=== PATIENT | male | born 1965 | race Caucasian/White ===

== ENCOUNTER 2025-06-09 18:19 | Outpatient (BNV) | payer OTHER, SELFPAY | END 2025-06-14 16:28 | PROVIDERS: Admitting Provider Psychiatry & Neurology Psychiatry; Visit Provider Internal Medicine Cardiovascular Disease | DX: R07.9 Chest pain, unspecified (principal) | CPT/HCPCS: 93010 ==

== ENCOUNTER 2025-06-09 18:19 | Outpatient (BNV) | payer OTHER, SELFPAY | END 2025-06-27 06:15 | PROVIDERS: Admitting Provider Psychiatry & Neurology Psychiatry; Visit Provider Radiology Diagnostic Radiology | DX: R51.9 Headache, unspecified (principal); S09.90XA Unspecified injury of head, initial encounter; W19.XXXA Unspecified fall, initial encounter | CPT/HCPCS: 70450 ==

== ENCOUNTER 2025-06-09 18:19 | Outpatient (BNV) | payer OTHER, SELFPAY | END 2025-07-14 05:42 | PROVIDERS: Admitting Provider Psychiatry & Neurology Psychiatry; Visit Provider Radiology Diagnostic Radiology | DX: M47.812 Spondylosis without myelopathy or radiculopathy, cervical region (principal); I65.29 Occlusion and stenosis of unspecified carotid artery; Z04.3 Encounter for examination and observation following other accident | CPT/HCPCS: 70450; 72125 ==

== ENCOUNTER 2025-06-09 18:19 | Outpatient (BNV) | payer OTHER, SELFPAY | END 2025-06-14 16:43 | PROVIDERS: Admitting Provider Psychiatry & Neurology Psychiatry; Visit Provider Radiology Diagnostic Radiology | DX: R07.9 Chest pain, unspecified (principal) | CPT/HCPCS: 71046 ==

== ENCOUNTER 2025-06-09 18:19 | Outpatient (BNV) | payer OTHER, SELFPAY | END 2025-07-06 16:49 | PROVIDERS: Admitting Provider Psychiatry & Neurology Psychiatry; Visit Provider Radiology Diagnostic Radiology | DX: Z04.3 Encounter for examination and observation following other accident (principal) | CPT/HCPCS: 73502; 93971 ==

== ENCOUNTER 2025-06-09 18:19 | Outpatient (BNV) | payer OTHER, SELFPAY | END 2025-06-28 19:50 | PROVIDERS: Admitting Provider Psychiatry & Neurology Psychiatry; Visit Provider Radiology Diagnostic Radiology | DX: M25.561 Pain in right knee (principal); R22.41 Localized swelling, mass and lump, right lower limb | CPT/HCPCS: 73560 ==

== ENCOUNTER 2025-06-09 18:19 | Inpatient (IN) | payer OTHER, SELFPAY ==
--- NOTE | ~2025-06-09 | CT_ITS ---
EXAMINATION: CT HEAD WITHOUT CONTRAST CLINICAL INFORMATION: Fall, head trauma COMPARISON: None available. TECHNIQUE: Contiguous axial imaging was performed from the skull base to vertex without intravenous administration of contrast. This CT examination was performed using dose optimization techniques as appropriate, variously including the following: *Automated exposure control *Adjustment of mA and/or kV according to patient size (this includes techniques or standardized protocols for targeted exams where dose is matched to indication/reason for exam; i.e. extremities or head) *Use of iterative reconstruction technique DLP: 797 mGy-cm FINDINGS: No acute fracture in the bony calvarium or the skull base. No gross hematoma in the intraconal or extraconal compartments of the orbits. No acute intracranial hemorrhage, mass effect, midline shift, hydrocephalus or herniation. Flowers-white matter differentiation is normal. Posterior cranial fossa contents demonstrated no acute hemorrhage or mass effect. Normal position of the cerebellar tonsils. Sellar/suprasellar region demonstrated no gross masses. Calcified plaques in the V4 segments of the vertebral arteries and cavernous supracavernous segments both ICAs as well as the M1 segment. No air-fluid levels in the paranasal sinuses. Tympanic cavities and mastoid cells are aerated. CT/CT head/brain wo IV con IMPRESSION: No acute fracture, bony calvarium. No acute intracranial hemorrhage. Atherosclerosis disease, intracranial. Electronically signed by: Pino Ponce MD 06/27/2025 10:44 AM MIKE
--- NOTE | ~2025-06-09 | CT_ITS ---
EXAMINATION: CT HEAD WITHOUT CONTRAST CLINICAL INFORMATION: fall COMPARISON: June 27, 2025 TECHNIQUE: Contiguous axial imaging was performed from the skull base to vertex without intravenous administration of contrast. This CT examination was performed using dose optimization techniques as appropriate, variously including the following: *Automated exposure control *Adjustment of mA and/or kV according to patient size (this includes techniques or standardized protocols for targeted exams where dose is matched to indication/reason for exam; i.e. extremities or head) *Use of iterative reconstruction technique DLP: 708.72 mGy-cm FINDINGS: Motion artifact. No gross acute fracture in the bony calvarium. No gross acute intracranial hemorrhage, mass effect, midline shift, hydrocephalus or herniation. Flowers-white matter differentiation is normal. Calcified plaques in the cavernous supracavernous segments of the ICA and right ICA terminus. Posterior cranial fossa contents demonstrated no gross acute hemorrhage or mass effect. Normal position of the cerebellar tonsils. Sellar/suprasellar region demonstrated no gross masses. No gross air-fluid levels in the paranasal sinuses. Tympanic cavities and mastoid cells are aerated. CT/CT head/brain wo IV con IMPRESSION: Limited by patient's motion artifact. No acute fracture, bony calvarium. No acute intracranial hemorrhage. Atherosclerosis disease, ICAs. Electronically signed by: Pino Ponce MD 07/14/2025 07:15 AM EST
--- NOTE | ~2025-06-09 | CT_ITS ---
EXAMINATION: CT CERVICAL SPINE WITHOUT IV CONTRAST HISTORY: fall. TECHNIQUE: Helical CT of the cervical spine was performed per standard departmental protocol. Coronal and sagittal reformatted images were also evaluated. One or more of the following techniques was used for dose reduction: Automated exposure control, adjustment of the mA and/or kV according to patient size, use of iterative reconstruction technique. DLP: 1064 mGy-cm COMPARISON: There are no prior studies available for comparison. FINDINGS: CERVICAL SPINE: The examination is limited by patient motion. There is straightening of the normal cervical lordosis. The vertebral bodies maintain normal height without evidence of fracture or subluxation. There is moderate degenerative disc disease at the C4-5 level, with disc space narrowing and osteophyte formation. Milder changes are noted at the remaining levels. Evaluation for disc pathology is limited by lack of intrathecal contrast material and patient motion. BRAIN: The visualized portion of the brain is unremarkable. SINUSES: The visualized paranasal sinuses, mastoid air cells and middle ear cavities are unremarkable. LUNG APICES: The visualized lung apices are clear. SOFT TISSUES: There is calcification of the internal carotid arteries. CT/CT cervical spine wo IV con IMPRESSION: Limited examination due to patient motion. Straightening of the normal cervical lordosis. Degenerative changes as described. No definite fracture or subluxation. Electronically signed by: Michael Thomas MD 07/14/2025 07:18 AM EST
--- NOTE | ~2025-06-09 | XR_ITS ---
EXAMINATION: XR CHEST CLINICAL INFORMATION: Chest pain COMPARISON: None available. TECHNIQUE: 2 views of the chest were obtained. FINDINGS: The lungs are clear. No consolidation or evidence of pulmonary edema. No pleural effusion or pneumothorax. Mediastinal clips. The cardiac silhouette does not appear enlarged. Hilar and mediastinal contours are unremarkable. Median sternotomy wires. Mild degenerative changes of the spine. XR/XR chest 2V IMPRESSION: No evidence for acute disease in the chest. Electronically signed by: Concepcion Delarosa MD 06/14/2025 04:54 PM EDT
--- NOTE | ~2025-06-09 | XR_ITS ---
CLINICAL HISTORY: Fall 2 view right knee Comparison: None provided Findings: Mild narrowing of the medial knee compartment with marginal heterotopic bone formation. Mild osteopenia. No significant loss of joint space, osteophytes, or erosions. No joint effusion. No radiopaque foreign body. Mild arterial calcifications present. IMPRESSION: 1. Mild medial compartment osteoarthritis of the right knee. 2. Mild osteopenia. 3. No acute osseous injury. This document has been electronically signed by: Johnie Lizama MD on 06/28/2025 20:28:13
--- NOTE | ~2025-06-09 | XR_ITS ---
EXAMINATION: XR HIP, RIGHT CLINICAL INFORMATION: fall COMPARISON: None available. TECHNIQUE: Two views of the right hip. FINDINGS: The right hip joint spaces maintain normal. There is no visible acute fracture, dislocation or subluxation. No bony erosive changes. There is a radiopaque BB-like density overlying the right hip joint. XR/XR hip RT min 2V IMPRESSION: Unremarkable right hip exam. Small radiopaque BB-like metallic density overlying the right hip joint. Electronically signed by: Evan Poon MD 07/07/2025 07:14 AM MIKE MCNEILL
--- NOTE | ~2025-06-09 | US_ITS ---
CLINICAL HISTORY: Right leg pain Venous duplex ultrasound right lower extremity Comparison: None provided Findings: The visualized deep veins are fully compressible with normal Doppler color flow and spectral tracings. No popliteal cyst. There are 2 predominantly fatty replaced lymph nodes within the right groin, most likely inflammatory. IMPRESSION: 1. Negative for right lower extremity deep vein thrombosis. This document has been electronically signed by: Tiff Kiran MD on 07/06/2025 17:26:13
[2025-06-09 18:46] VITALS: BP 116/67; PULSE 72; RESP 17; TEMP 36.4; O2SAT 97
[2025-06-09 18:47] VITALS: BMI 27.6
--- NOTE | 2025-06-09 18:47 | PC.NURSE ---
Patient was admitted at 18:28 from [facility]. Patient was oriented to the unit, skin check competed and unremarkable other than a scar to pt's right foot, which he reports is from surgery earlier this year d/t an ankle fx, from a fall. Pt given a walker (as he reports using one at home) and sr. operations manager provider notified to place pt on 5 minute checks. Vitals completed (97.6, 97%, 72, 116/67). Pt denies SI/HI/AVH, reports feeling safe on the unit.
[2025-06-09 19:25] VITALS: BP 141/63; PULSE 80; RESP 16; TEMP 36.2; O2SAT 100
--- OUTSIDE RECORDS SUMMARY | 2025-06-09 19:52 | XMS_ITS | Encounter Summary ---
Author Organization [facility] Address [address] [place] [address] Care Team Providers Care Electrical Engineering Director Name Role Phone Gabriel Sykes MD Primary Care Provider Susana Nicholas MD Primary Care Provider Encounter Details Date Type Department Care Team (Late st Contact Info) Description 07/24/[address] Orders [address] [facility] [address] [place] [phone] Dorys Azevedo MD [address] [place] [address] Medications Social History Tobacco Use Types Packs/Day Years Used Date Smoking Tobacco: Every Day Cigarettes 1 20 Comments:trying to quit Alcohol Use Standard Drinks/Week Comments No 0 (1 standard drink = 0.6 oz pur e alcohol) sober since 2001 Sex and Gender Information Value Date Recorded Sex Assigned at Not on file Legal Sex Male 11:13 PM EDT Gender Identity Not on file Sexual Orientation Not on file Occupation Industry Job Start Date Job End Date disabled Not on file Not on file Not on file documented as of this encounter Plan of Treatment Not on file documented as of this encounter Goals Goal Patient Goal Type Associated Problems Recent Progress Patient-Stated? Author Quit smoking / using tobacco Lifestyle No Estefani Chavez documented as of this encounter Visit Diagnoses Diagnosis Depressive disorder, not elsewhere classified- Primary Coronary atherosclerosis of [place] coronary artery S/P CABG (coronary artery bypass graft) Postsurgical aortocoronary bypass status documented in this encounter Care Teams Electrical Engineering Director Relationship Specialty Start Date End Date Gabriel Sykes MD PCP - General Family Medicine 12/03/13 05/24/22 Susana As[facility] [address] [facility] [place] [address] PCP - General Family Medicine 05/25/22 documented as of this encounter
--- OUTSIDE RECORDS SUMMARY | 2025-06-09 19:52 | XMS_ITS | Encounter Summary ---
Author Organization [facility] Address [address] [place] [address] Care Team Providers Care Child Psychometrist Name Role Phone Gabriel Sykes MD Primary Care Provider Ssuana Nicholas MD Primary Care Provider [phone] Encounter Details Date Type Department Care Team ([facility] st Contact Info) Description 06/28/[address] [facility] [address] [place] [phone] Gabriel Sykes MD Social History Tobacco Use Types Packs/Day Years [...] documented as of this encounter Visit Diagnoses Not on filedocumented in this encounter Care Teams Child Psychometrist Relationship Specialty Start Date End Date Gabriel Sykes MD PCP - General Family Medicine 12/03/13 05/24/22 Susana Ashton MD [address] [place] [phone] PCP - General Family Medicine 05/25/22 documented as of this encounter
--- OUTSIDE RECORDS SUMMARY | 2025-06-09 19:52 | XMS_ITS | Encounter Summary ---
Author Organization [facility] Address [address] [place] [address] Care Team Providers Care Supervisor Landscape Name Role Phone Gabriel Sykes MD Primary Care Provider Susana Nicholas MD Primary Care Provider Encounter Details Date Type Department Care Team ([facility] st Contact Info) Description 06/16/2014 Orders Only [address] [facility] [address] [place] [phone] Gabriel Sykes MD Social History Tobacco Use [...] as of this encounter Plan of Treatment Scheduled Orders Name Type Priority Associated Diagnoses Orde r Schedule REQUEST FOR CAT SCAN NON-FC Imaging Routine Chronic headaches Seizure Ordered: 06/16/2014 documented as of this encounter Goals Goal Patient Goal Type Associated Problems Recent Progress Patient-Stated? Author Quit smoking / using tobacco Lifestyle No Estefani Chavez documented as of this encounter Visit Diagnoses Diagnosis Chronic headaches- Primary Headache Seizure (HCC) Other convulsions documented in this encounter Care Teams Supervisor Landscape Relationship Specialty Start Date End Date Gabriel Sykes MD PCP - General Family Medicine 12/03/13 05/24/22 Susana Ashton MD [address] [place] [address] PCP - General Family Medicine 05/25/22 documented as of this encounter
--- OUTSIDE RECORDS SUMMARY | 2025-06-09 19:52 | XMS_ITS | Clinical Summary ---
Author Organization [facility] Address [address] [place] [address] Care Team Providers Care Clinical Evaluator Name Role Phone Renate Samuels MD, Jeannine Primary Care Provide r Allergies Active Allergy Reactions Criticality Noted Date Comments Bupropion Rash 09/16/2023 Bupropion Hcl Rash High 06/15/2017 Haloperidol Rash High 06/15/2017 Lactose Unknown High 04/03/2020 Peanut Anaphylaxis,Hives High 06/28/2017 Ziprasidone Rash High 04/03/2020 Ziprasidone Hcl Rash Medium 06/15/2017 Medications * This document contains information received from the source organization and may not represent a complete record from that organization. acetaminophen (TYLENOL) 325 mg tablet Take 2 tablets (650 mg total) by mouth every 6 hours as needed (pain). 120 tablet 2 03/06/20 22 Active multivitamin (Daily-Avtar, with folic acid,) tablet TAKE 1 TABLET BY MOUTH EVERY DAY 90 tablet 3 12/03/19 24 Active atomoxetine (STRATTERA) 60 mg capsule Take 60 mg by mouth in the morning. Active atorvastatin (LIPITOR) 40 mg tablet TAKE 1 TABLET BY MOUTH EVERY DAY AT NIGHT 90 tablet 1 12/30/19 24 Active aspirin 81 mg EC tablet Take 1 tablet (81 mg total) by mouth once a day. 01/07/20 24 Active metFORMIN (GLUCOPHAGE) 500 mg tabletIndications: Type 2 diabetes mellitus without complication, without long-term current use of insulin TAKE 1 TABLET BY MOUTH TWICE A DAY WITH MEALS 180 tablet 02/02/20 24 Active cholecalciferol (VITAMIN D3) 2,000 unit capsuleIndications :Vitamin D deficiency TAKE 1 CAPSULE BY MOUTH EVERY DAY 90 capsule 03/29/20 24 Active polyethylene glycol 3350 (MIRALAX) 17 gram packet Take 17 g by mouth once a day. Mix powder in 4 to 8 oz of water, juice, coffee, or tea prior to administration. Active paliperidone palmitate (Invega Sustenna) 234 mg/1.5 mL syringe IM injection Inject 234 mg into the shoulder, thigh, or buttocks muscle as directed every 28 days. Active OLANZapine (ZyPREXA) 20 mg tablet Take 20 mg by mouth nightly. Active sertraline (ZOLOFT) 100 mg tablet Take 150 mg by mouth once a day. Take 1.5 tablets every morning Active hydrOXYzine (VISTARIL) 25 mg capsule Take 50 mg by mouth every 6 hours as needed for anxiety. Active budesonide-formote roL (SYMBICORT) 80-4.5 mcg inhaler Inhale 2 puffs by mouth once a day. Rinse mouth with water after use. Do not swallow. Active finasteride (PROSCAR) 5 mg tablet Take 1 tablet (5 mg total) by mouth once a day. 90 tablet 04/23/[address] (PROTONIX) 40 mg tablet Take 1 tablet (40 mg total) by mouth once a day. 90 tablet 04/23/20 24 Active Additional Information Patient not taking.Reported on 10/04/2024 metoprolol succinate XL (TOPROL XL) 50 mg tablet Take 1.5 tablets (75 mg total) by mouth once a day. 135 tablet 04/23/20 24 Active docusate sodium (COLACE) 100 mg capsule Take 1 capsule (100 mg total) by mouth 2 times a day. 180 capsule 04/23/20 24 Active lidocaine (LIDODERM) 5% patchIndications:A nnual physical exam Apply 1 patch topically to the affected area once a day. Remove and discard patch within 12 hours or as directed. 30 patch 05/04/20 24 Active eszopiclone (LUNESTA) 2 mg tabletIndications: Acute insomnia Take 1 tablet (2 mg total) by mouth nightly. Take immediately before bedtime 30 tablet 06/02/20 24 Active doxazosin (CARDURA) 2 mg tabletIndications: Benign prostatic hyperplasia (BPH) with straining on urination Take 1 tablet (2 mg total) by mouth nightly. 30 tablet 06/02/20 24 Active Additional Information Patient taking differently:2 mg oral Nightly,Take 1 tablet nightly for 90 days 09/22/2024-12/21/2024, Reported on 10/04/2024 tamsulosin (FLOMAX) 0.4 mg capsule Take 0.4 mg by mouth every night. Active traZODone (DESYREL) 100 mg tablet Take 100 mg by mouth nightly. Active divalproex ER (DEPAKOTE ER) 500 mg tablet Take 1,500 mg by mouth at bed time. Active enoxaparin (LOVENOX) 40 mg/0.4 mL subcutaneous injection Inject 0.4 mL (40 mg total) under the skin daily. 06/28/20 24 Active Additional Information Patient not taking.Reported on 10/04/2024 senna (SENOKOT) 8.6 mg tablet Take 2 tablets (17.2 mg total) by mouth nightly. 06/28/20 24 Active folic acid (FOLVITE) 1 mg tablet Take 1 mg by mouth once a day. Active metoprolol tartrate (LOPRESSOR) 50 mg tablet 50 mg 2 times a day. 09/03/19 24 Active ondansetron (ZOFRAN ODT) 4 mg disintegrating tablet Dissolve 1 tablet (4 mg total) in the mouth every 8 hours as needed for nausea or vomiting. 12 tablet 09/27/19 25 Active benztropine (COGENTIN) 0.5 mg tablet Take 0.5 mg by mouth 2 times a day. Active loratadine (CLARITIN) 10 mg tablet Take 10 mg by mouth once a day. Active diclofenac (VOLTAREN) 1% gel Apply 2 g topically to the affected area 4 times a day. Active DULoxetine DR (CYMBALTA) 60 mg capsule Take 60 mg by mouth once a day. Active ferrous sulfate 325 mg (65 mg iron) tablet Take 325 mg by mouth daily with breakfast. Active fish oil 340-1,000 mg capsule Take 1,000 mg by mouth once a day. Active fluticasone propionate (FLONASE) 50 mcg/actuation nasal spray Administer 1 spray into each nostril once a day. Active FLUoxetine (PROzac) 20 mg capsule Take 20 mg by mouth once a day. Active isosorbide mononitrate ER (IMDUR) 15 mg tablet extended release 24 hr Take 30 mg by mouth once a day. Active clonazePAM (KlonoPIN) 1 mg tablet Take 1 mg by mouth 3 times a day as needed for anxiety. Active lamoTRIgine (LaMICtal) 25 mg tablet Take 25 mg by mouth once a day. Active melatonin 3 mg tablet Take 3 mg by mouth nightly. Active prazosin (MINIPRESS) 1 mg capsule Take 2 mg by mouth nightly. Active nitroglycerin (NITRODUR) 0.4 mg/hr Place 1 patch on the skin once as needed ( dissolve one tab under tongue every 5 minutes prn/chest pain. 5 minutes after 3rd pill if no relief call 911.). Active oxyCODONE (OXY-IR) 5 mg capsule Take 7.5 mg by mouth every 4 hours as needed for pain. Active ibuprofen (MOTRIN) 600 mg tablet Take 600 mg by mouth every 6 hours as needed for pain. Active aspirin 81 mg EC tablet Take 81 mg by mouth once a day. Active clozapine (ClozariL) 200 mg tablet Take 250 mg by mouth every morning. Active clozapine (CLOZARIL) 50 mg tablet Take 50 mg by mouth nightly. Active hydrOXYzine (ATARAX) 50 mg tablet Take 50 mg by mouth 3 times a day as needed for anxiety. Active vitamin B complex capsule Take 1 capsule by mouth once a day. Active venlafaxine XR (EFFEXOR XR) 75 mg capsule Take 75 mg by mouth once a day. Active LORazepam (ATIVAN) 1 mg tablet Take 1 mg by mouth once a day. Active Active Problems Problem Noted Date Diagnosed Date Closed right ankle fracture 06/26/2024 Assessment & Plan (06/26/2024 8:25 PM EDT): Pain control Orthopedic consult Syncope and collapse 06/26/2024 Acute insomnia 04/06/2024 Assessment & Plan (04/06/2024 2:42 PM EDT): Anel rowland Visiting nurse administers medications Benign prostatic hyperplasia (BPH) with straining on urination 04/06/2024 Hyponatremia 01/02/2024 Severe major depression without psychotic featur es 10/31/2023 Assessment & Plan (06/26/2024 8:25 PM EDT): On antipsychotics Continue same Assessment & Plan (04/06/2024 2:41 PM EDT): Post d/c from [facility] for depression Denies any SI,SA Followed by psychiatry and has frequent telehealth visits PH-9-10 Continue Cymbalta Assessment & Plan (12/03/2023 5:57 PM EDT): Just d/c from [facility] for behavior health States he would not pay attention to doctors and staff there. He stated he did not do groups and just stayed in bed. Refuses trials at [facility]. Unable to reach [employer] or nurses this late in the day. Sent message that I sent him to the ER. Sent to ER. Did not have to section. Went willingly even though he did not want to go. Generalized anxiety disorder 10/31/2023 Full incontinence of feces 10/31/2023 Assessment & Plan (10/31/2023 11:14 AM EST): Disc that he needs 25-36 grams of fiber a day. Increase fruits and vegetables. Start metamucil bid. 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 09/17/2023 Atherosclerotic heart diseas e of [place] coronary artery without angina pectoris 07/29/2023 Overview (09/17/2023): 2 Risk Chronic chest pain 07/23/2023 Tobacco dependence syndrome 07/23/2023 Orthostatic hypotension 07/23/2023 Failure to thrive in adult 06/10/2023 Assessment & Plan (05/20/2024 1:59 PM EDT): Followed by psychiatry History of cocaine use 01/29/2023 Ecstasy use disorder, mild, in sustained remissi on 01/29/2023 Assessment & Plan (10/31/2023 12:51 PM EST): stable Impairment of balance 12/04/2022 Nausea and vomiting 11/16/2022 PTSD (post-traumatic stress disorder) 11/07/2022 Primary polydipsia 09/15/2022 Class 1 obesity due to excess calories in adult 09/15/2022 Other constipation 08/12/2022 Vitamin D deficiency 07/11/2022 Assessment & Plan (10/31/2023 12:51 PM EST): At goal. Cont vit d3 2000 units a day. Eat vitamin d rich foods daily. Eat calcium rich foods 2x per day. Get outside for at least 30 mins a day. If not possible, sit by clean windows. Food Sources for vitamin d Cod liver oil. [place]. Swordfish. Tuna fish. Taliaferro juice fortified with vitamin D. Dairy and plant milks fortified with vitamin D. Sardines. Beef liver. Mushrooms Eggs Tofu These eight foods are some of the best sources of calcium available: Dairy products Products like milk, yogurt, and cheese are rich in calcium and also tend to be the best absorbed sources of it. Calcium is not absorbed as well from plant and fortified foods. Soybeans Dry-roasted soybeans are a good source of calcium. A half-cup contains 230 mg of calcium, making them an excellent source of calcium for those who follow a vegan diet. Dark Green, Leafy Vegetables Cooked kale, spinach, and dylan greens are all good calcium sources. Dylan greens having the highest amount: a half-cup provides 175 mg of calcium. Calcium-Fortified Foods Taliaferro juice and cereals are often fortified with calcium. Calcium citrate malate is a well-absorbed form found in some fortified juices. There are also fortified cereals that provide as much as 1,000 mg of calcium per serving. Canned [place] Aside from dairy products, canned salmon is one of the best dietary sources of calcium. Just 3 ounces of canned salmon provides 181 mg. [place] also contains Vitamin D, which helps your body absorb more calcium. Figs Five dried or fresh figs provide your body with 135 mg of calcium. Papayas and oranges are two other fruits high in calcium. Flour Tortillas Good news for carb lovers: one 10-inch flour tortilla provides you with 90 mg of calcium. Canned Baked Beans Four ounces of canned baked beans contain 160 mg of calcium. Beans also contain a lot of fiber. Vitamin d protects against squamous cell skin cancer, covid, Multiple Sclerosis, Prostate Cancer, Colon Cancer and Breast cancer. It is a fat-soluble vitamin that has long been known to help the body absorb and retain calcium and phosphorus; both are critical for building bone. Also, laboratory studies show that vitamin D can reduce cancer cell growth, help control infections and reduce inflammation. Vitamin D also supports your muscles, bones, nerves, and immune system. Vitamin d has been shown to help with cognitive health. The goal is a minimum of 32 for bone health. However, the overall goal is 50 to see the protections listed above. Vitamin D side effects: symptoms may include kidney stones, nausea, vomiting, loss of appetite, constipation, dehydration, fatigue, irritability, confusion, weakness and/or weight loss. Effects of vitamin D can last >=2 months after therapy is discontinued. Clinical features of vitamin d deficiency: Decreased calcium Decreased phosphorus Decreased urinary calcium Lethargy Proximal muscle weakness Bone pain Low vit d 25 hydroxy The main consequence of vitamin D toxicity is a buildup of calcium in your blood (hypercalcemia), which can cause symptoms such as poor appetite, nausea and vomiting. Weakness, frequent urination and kidney problems also may occur. Treatment includes the stopping of excessive vitamin D intake. If too high, we may need to also prescribe intravenous fluids and medications, such as corticosteroids or bisphosphonates. Annual physical exam 07/11/2022 Assessment & Plan (05/20/2024 2:01 PM EDT): Labs not completed. Patient medically stable. Advised to contact psychiatry. Patient mood is liable. Denies any SI/SA. Assessment & Plan (10/31/2023 12:51 PM EST): Disc good dm foot care To podiatry [facility] today Vitamin B12 deficiency 07/11/2022 Assessment & Plan (10/31/2023 12:51 PM EST): Diagnostics & Labs Component Value Date [id number] 03/31/2023 Cont vitamin b12 500 mcg a day Symptoms of vitamin B12 deficiency If you have anaemia caused by a vitamin B12 deficiency, you may have other symptoms, such as: a pale yellow tinge to your skin a sore and red tongue (glossitis) mouth ulcers pins and needles (paraesthesia) changes in the way that you walk and move around disturbed vision irritability depression changes in the way you think, feel and behave a decline in your mental abilities, such as memory, understanding and judgement To increase the amount of vitamin B12 in your diet, eat more of foods that contain it, such as: Beef, liver, and chicken. Fish and shellfish such as trout, salmon, tuna fish, and clams. Fortified breakfast cereal. Low-fat milk, yogurt, and cheese. Eggs. [email or web address]/vitamin-b12/ Polyp of colon 07/11/2022 HDL deficiency 03/12/2022 Assessment & Plan (10/31/2023 11:14 AM EST): Not to goal HDL should be 1/3 of your total cholesterol = 40 Goal is also at least 40 for men / 50 for women. Increase fruits, vegetables to a minimum of 5 servings per day. Eat a handful of nuts and a handful of berries each day. Eat greens each day. Increase movement. Your goal is 20 continuous minutes most days of the week with your heart rate slightly elevated and you slightly short of breath. Increase eating fatty fish. [place], Tuna, Mackerel, [place], Sardines, Anchovies, [place], Cod, White Fish, Striped [place], [place], [place], Artic [place], [place], Halibut, Sablefish, Fish [place], Swordfish, Cat fish. If you smoke, decrease, even better, quit. Ask for help if needed. Avoid processed foods. Avoid trans fats. Manufacturers create artificial trans fats, which are present in margarines and processed foods, by adding hydrogen to unsaturated vegetable and seed oils. These fats are also known as industrial trans fats or partially hydrogenated fats. In addition to increasing inflammation and contributing to several health concerns, these artificial trans fats may lower HDL cholesterol levels. Trans fats in your food Commercial baked goods, such as cakes, cookies and pies. Shortening. Microwave popcorn. Frozen pizza. Refrigerated dough, such as biscuits and rolls. Fried foods, including faroese fries, doughnuts and fried chicken. Nondairy coffee creamer. Stick margarine. Iliac artery aneurysm, right 07/26/2021 Overview (03/08/2022): Followed by vascular, Dr. Davidson Assessment & Plan (09/27/2021 7:01 PM EST): Clifton Brink is a 55 y.o. male with PMHx significant for bipolar, obesity, hypertension, hyperlipidemia, myocardial infarction in 2014 status post CABG, still independent diabetes type 2, diffusely deconditioned who I previously saw in my vascular surgery clinic on July 26, 2021 for peripheral arterial disease. Patient has palpable pedal pulses. He does have a known right common iliac artery aneurysm that was found on CT given in 2019. He returns here for surveillance of his current right common iliac artery aneurysm with a duplex ultrasound. Patient is duplex ultrasound demonstrated a stable right common iliac artery aneurysm that measures 2.5 in diameter. We will continue to surveilled this patient annually with duplex ultrasounds. Currently has no symptoms of peripheral arterial insufficiency. Patient was instructed should he develop any symptoms of peripheral arterial insufficiency such as claudication, rest pain, nonhealing pedal ulcer, then he should contact my offices immediately. Patient should also remain on his daily aspirin and statin. Assessment & Plan (07/26/2021 7:25 PM EST): Clifton Brink is a 55 y.o. male with PMHx significant for bipolar, obesity, hypertension, hyperlipidemia, myocardial infarction in 2015 status post CABG, diffusely deconditioned who presents to our vascular surgery clinic for evaluation of bilateral lower extremity weakness. Per the patient he reports that his whole body is weak immediately when he wakes up out of bed and is difficult for him to get out of bed. He reports that he is symptoms have been persistent right after his CABG in 2014. He is also had difficulty with balance as well. He denies only weakness in his lower extremity rather than diffuse weakness in his whole body. He denies any symptoms of claudication, rest pain, or nonhealing pedal ulcerations. Given the patient has normal vascular noninvasive studies and palpable pedal pulses, it is unlikely that he has peripheral arterial disease. However he does have a history of a right common iliac artery aneurysm that has not been surveilled since 2019. I will continue to surveilled this with an iliac duplex ultrasound done in 3 months. Should the patient's iliac aneurysm increase in size to 3 cm we can talk about prophylactic repair to prevent the risk of rupture or thromboembolic complications. Type 2 diabetes mellitus wit hout complication, without long-term current use of insulin 03/04/2021 Assessment & Plan (06/26/2024 8:24 PM EDT): Hold metformin Sliding scale insulin before meals and at bedtime Assessment & Plan (05/20/2024 2:00 PM EDT): Continue Metformin 500 mg bid Latest Reference Range & Units 04/21/24 10:18 Hemoglobin A1C <5.7 % of total Hgb 6.0 (H) eAG (MG/DL) mg/dL 126 eAG (MMOL/L) mmol/L 7.0 (H): Data is abnormally high Assessment & Plan (10/31/2023 12:51 PM EST): No recent A1c, will get done within the next 2 weeks Metformin 500 mg bid No chadwick/arb but bp too low to add Iron deficiency 11/04/2020 Assessment & Plan (10/31/2023 12:51 PM EST): Diagnostics & Labs Component Value Date IRONTOTAL 84 03/31/2023 IRONBINDING 306 03/31/2023 SATURATION 27 03/31/2023 FERRITIN 77 03/31/2023 TRANSFERRIN 252 03/31/2023 Cont ferrous sulfate 325 mg a day FIT test ordered. Iron rich foods: Red meat, pork and poultry. Seafood. Beans. Dark green leafy vegetables, such as spinach. Dried fruit, such as raisins and apricots. Iron-fortified cereals, breads and pastas. Peas. Shellfish Liver Pumpkin seeds Quinoa Broccoli Molasses Tofu Dark chocolate You can boost absorption by including a source of vitamin C like orange juice. Cooking with a cast iron rice. https://www.webmd.com/diet/vtnk-wpjt-vcaqw [email or web address]://[email or web address]/btt-ow-web-dagy-tqqb-du-your-diet/ Primary insomnia 11/03/2020 Urinary retention 06/23/2020 Hyperlipidemia 04/03/2020 Assessment & Plan (10/31/2023 11:14 AM EST): Stable on atorvastatin 40 mg / day 3 vegetables, 2 fruits a day Switch to whole grains: brown rice, brown bread, brown pasta/whole grains, protein pasta ( Barilla in the yellow box) or vegetable pasta, cereal that has at least 7 grams of fiber per serving ( like Raisin Bran) Eat fatty fish ( tuna, mackerel, salmon, trout, sardines) 2x per week More movement, goal is 30 minutes most days with increased movement, heart rate elevated and short of breath but able to hold a conversation. Water: 88 ounces a day for women, 125 ounces a day for men, per zhouwu Cook with avocado, coconut and olive oil. Peripheral neuropathy 04/03/2020 Status post coronary artery bypass graft 020 Anxiety 10/18/2019 Lower back pain 10/18/2019 Obesity, Class I, BMI 30-34.9 10/18/2019 At risk for polypharmacy 05/23/2019 Coronary artery disease with unstable angina pec toris 01/21/2019 Overview (03/12/2022): December 2018 nuclear stress test CABG 2014 previous nuclear stress test was in December 2018, which showed myocardial perfusion imaging with no clear evidence of ischemia and a small area of myocardial infarct in apical/anterior wall of LV. Essential hypertension 09/11/2017 Assessment & Plan (06/26/2024 8:22 PM EDT): Presenting with borderline low blood pressure In the setting of recurrent syncope Will avoid alpha blockers Strict parameters Orthostatic vital signs Assessment & Plan (05/20/2024 1:58 PM EDT): Well controlled Metoprolol xl 50 mg/ day Assessment & Plan (10/31/2023 11:14 AM EST): 108/68 Well controlled Metoprolol xl 50 mg/ day Your goal is 115/75 mm-Hg. For every 20 mm-Hg systolic or 10 mm-Hg diastolic increase in blood pressure over 115/75, there is a doubling of mortality from both ischemic heart disease and stroke. Eat a healthy diet which includes limiting your salt intake. Exercise helps blood pressure. Getting a good nights sleep will help blood pressure. Right kidney mass Overview (03/08/2022): Fu US is scheduled for 10/17 Assessment & Plan (10/31/2023 12:51 PM EST): 09/15 US showed RIGHT KIDNEY: The right kidney measures 12 cm. The parenchyma is within normal limits. There is no hydronephrosis. No sonographically evident nephrolithiasis or solid mass. A well defined simple cyst 3.3 cm in the lower pole. In addition there is an exophytic cyst 1.5 cm at the lower pole, but ultrasound visualization of the cyst is suboptimal. There is no gross septation or internal vascularity. Did not do his 09/16 us. New order placed. Cigarette smoker Assessment & Plan (10/31/2023 12:51 PM EST): Pt wants to quit. Sent in nicotine patch 21 mg/day, verbally states he understands he cannot smoke with patch on. Pt agreed to a [employer] referral. Resources given. Chronic bronchitis Assessment & Plan (10/31/2023 12:51 PM EST): Refill breo ellipta Impaired mobility Alcoholism in remission Overview (03/08/2022): PAST USE Assessment & Plan (10/31/2023 12:51 PM EST): Stable Diagnosis Plan 1. Mixed hyperlipidemia 2. HDL deficiency 3. Essential hypertension 4. Encounter for diabetic foot exam ([facility]) 5. Type 2 diabetes mellitus without complication, without long-term current use of insulin ([facility]) ([facility]) Ambulatory referral to Ophthalmology - General Hemoglobin A1c Microalbumin / creatinine, urine ratio (Lab Collect) Hemoglobin A1c Microalbumin / creatinine, urine ratio (Lab Collect) Ambulatory referral to Podiatry metFORMIN (GLUCOPHAGE) 500 mg tablet 6. Right kidney mass US Kidney Complete and Bladder 7. Full incontinence of feces psyllium-aspartame (METAMUCIL) 3.5 gram powder in packet packet 8. Vitamin D deficiency 9. Vitamin B12 deficiency 10. Iron deficiency ferrous sulfate 325 mg (65 mg iron) tablet Occult Blood, Fecal (FIT) Occult Blood, Fecal (FIT) 11. Cigarette smoker Referral - [employer] Charge - Tobacco Counseling 3-10 min ([id number]) 12. Severe episode of recurrent major depressive disorder, without psychotic features (HCC) 13. Encounter for screening involving social determinants of health (SDoH) 14. Need for hepatitis B booster vaccination hepatitis B adult (HEPLISAV-B) 2 dose vaccine 0.5 mL IM 15. Chronic bronchitis, unspecified chronic bronchitis type (HCC) Breo Ellipta 100-25 mcg/dose blister with device 16. Ecstasy use disorder, mild, in sustained remission (HCC) 17. Alcoholism in remission (CMS/HCC) (HCC) Sleep apnea Assessment & Plan (06/26/2024 8:24 PM EDT): Oxygen supplementation nightly and as needed CT (mitral incompetence) History of myocardial infarction Overview (03/08/2022): 10/2014 Irritable bowel syndrome Substance abuse Overview (03/08/2022): past- alcohol Resolved Problems Problem Noted Date Diagnosed Date Resolved Date Sepsis 11/18/2022 03/31/2023 Lactic acidosis 11/18/2022 03/31/2023 Infectious diarrhea 11/16/2022 03/31/20 23 Infectious colitis 11/16/2022 Suicidal ideation 09/15/2022 04/06/2024 Assessment & Plan (12/03/2023 5:57 PM EDT): 3+ on phq-9 of being better off /harming himself Denies a plan States he would ask for help, stated staff was at home 17/03 but then we find out they are only there [id number] Elevated ALT measurement 07/11/202202/2023 Elevated CK 03/12/2022 10/31/2023 Leg pain, bilateral 04/03/2020 10/31/19 24 Generalized weakness 03/03/2020 024 Weakness of both lower extremities 10/17/2019 10/31/2023 Bipolar 1 disorder, depressed 05/19/2019 10/31/2023 Transient alteration of awareness 05/18/2019 05/23/2019 Chronic headache 01/21/2019 03/12/2022 Hallucination 09/11/2017 10/31/2023 Schizo affective schizophrenia 10/31/2023 Chronic pain disorder 2023 Encounters * This document contains information received from the source organization and may not represent a complete record from that organization. Date Type Department Care Team Description 05/15/2025 11:55 AM EDT - 05/16/2025 5:10 PM EDT Emergency [facility] Emergency Department [address] [place] [address] Moise Marie MD Volturo, Jesse C., Lucius Walters MD Swayze, Evan C, MD Gammel, Jonathan J, MD Anxiety (Primary Dx) Discharge Disposition: Short Term/Acute [facility] (02) from Last 3 Months Immunizations Immunization Administration Dates Next Due Hepatitis B vaccine (HEPLISA V-B) vaccine 0.5 mL IM 10/31/2023,09/17/2023 INFLUENZA, SPLIT VIRUS, TRIVALENT, PF 05/27/2019 Influenza, Injectable, Quadr ivalent, Preservative Free 09/17/2023,06/13/2023(Deferred: Patient Refused),06/11/2023(Deferred: Patient Refused),08/12/2022,05/21/2019,08/11/20 16,06/24/2016 Influenza, Trivalent, MDV, Injectable 08/16/2015 Pneumococcal conjugate PCV20,polysaccharide [id number] conjugate, adjuvant, PF (Prevnar 20) 08/12/2022 Seasonal, Trivalent, Recombi nant, Injectable Influenza Vaccine, Preservative Free (Flublok) 05/04/2024 Tetanus Toxoid, Reduced Diph theria Toxoid, and Acellular Pertussis Vaccine, Adsorbed 09/17/2023 Family History Medical History Relation Name Comments Depression Brother Diabetes Brother Cancer Father Heart disease Father Diabetes Mother Heart disease Mother Kidney disease Mother Relation Name Status Comments Brother Father Mother Social History Tobacco Use Types Packs/Day Years Used Date Smoking Tobacco: Former Cigarettes 0.5 30 Smokeless Tobacco: Never Tobacco Cessation:Counseling Given: Not Answered Alcohol Use Standard Drinks/Week Comments Not Currently 50 (1 standard drink = 0.6 oz pure alcohol) history of alcohol abuse, not currently [facility] Utilities Answer Date Recorded In the past 12 months has th e electric, gas, oil, or water company threatened to shut off services in your home? No 06/26/2024 Hunger Vital Sign Answer Date Recorded Within the past 12 months, y ou worried that your food would run out before you got the money to buy more. Never true 06/26/20 24 Within the past 12 months, t he food you bought just didn't last and you didn't have money to get more. Never true 06/26/2024 Transportation Answer Date Recorded In the past 12 months, has l ack of reliable transportation kept you from medical appointments, meetings, work or from getting things needed for daily living? No 06/26/2024 Housing Answer Date Recorded Housing Risk Low 2 06/26/2024 Housing Risk Medium Not on file 06/26/2024 Housing Risk High Not on file 06/26/2024 What is your living situation today? LSSTEADY 06/26/2024 Sex and Gender Information Value Date Recorded Sex Assigned at Male 10/02/2023 7:47 AM EST Legal Sex Male 1:06 AM EDT Gender Identity Not on file Sexual Orientation Straight Last Filed Vital Signs Vital Sign Reading Time Taken Comments Blood Pressure 98/56 06/09/2025 8:42 AM EDT Pulse 61 06/09/2025 8:42 AM EDT Temperature 36.7 C (98 F) 06/09/2025 8:42 AM EDT Respiratory Rate 20 06/09/2025 8:42 AM EDT Oxygen Saturation 97% 06/09/2025 8:42 AM EDT Inhaled Oxygen Concentration - - Weight 95.3 kg (210 lb) 06/08/2025 8:53 AM EDT Height 182.9 cm (6') 06/08/2025 8:53 AM EDT Body Mass Index 28.48 06/08/2025 8:53 AM EDT Plan of Treatment Upcoming Encounters Date Type Department Care Team (Late st Contact Info) Description 11/07/2025 11:30 AM EDT Office Visit [facility] Diabetes [address] [place] [address] Band Saw Operator: Chao Messina MD [address] [place] [phone] Scheduled Procedures Name Priority Associated Diagnoses Date/Ti me COLONOSCOPY SCREENING, HIGH RISK WITH POSSIBLE MODERATE SEDATION History of colon polyps Health Maintenance Due Date Last Done Comments Cologuard 1964 Colonoscopy 1964 Sigmoidoscopy 1964 Ophthalmology Exam 1974 Zoster Vaccines (1 of 2) 2014 Colon Cancer Screening 10/18/2020 FOBT / Fit Test 10/18/2020 10/18/2019 Alcohol/Substance Use Screening 08/25/2024 Depression Screening and Follow-Up 08/25/2024 04/06/2024 Social Drivers of Health Skyla ual Screening 08/25/2024 Hemoglobin A1C 10/22/2024 04/21/2024, 03/0 03/2024, 07/06/2022, Additional history exists Urine Microalbumin 10/30/2024 10/31/2023, 0 03/31/2023, 07/15/2022, Additional history exists RSV Vaccine (60+ years old a nd patients) (1 - Risk 60-74 years 1-dose series) 2024 COVID-19 Vaccine (3 - 2024-2 6 season) 2025 09/06/2021, 10/25/2020 Influenza Vaccine (#1) 2025 , 11/02/2023, 09/17/2023, Additional history exists Basic Metabolic Panel 06/08/2026 06/08/2025 , 05/16/2025, 05/15/2025, Additional history exists DTaP,Tdap,and Td Vaccines (2 - Td or Tdap) 09/17/2033 09/17/2023 Pneumococcal Vaccine: 50+ Years Completed Hepatitis C Screening Completed 08/07/2023 , 06/09/2021, 07/31/2009 HIV Screening Completed 10/22/2023 Hepatitis B Vaccines Completed 10/31/2023, 09/17/19 CT Lung Cancer Screening (12 months, previous LungRADS 1 or 2) Discontinued 06/26/2024, 01/08/20, 09/08/2018, Additional history exists Abdominal Aortic Aneurysm (A AA) Screening Completed 04/14/2025, 04/14/2025, 11/06/2024, Additional history exists Goals Goal Patient Goal Type Associated Problems Recent Progress Patient-Stated? Author General - Chronic complications- prevent/detect /treat General Improving(03/26 10:16 AM EDT) No Rohini Allison RN Medical Devices Implanted Type Area Atmospheric Physicist Device Identifier Shelf Expiration Date Model / Serial / Lot System Implant Knotless Tightrope Repair Syndesmosis Titanium With Quality Auditor - [id number] Implanted:Qty: 1 on 07/07/2024 by Rustam Monreal DO at [facility] Implant Right: Ankle [employer] 01/22/2029 [id number] / / [id number] Screw Locking Fully Threaded With T10 Drive [id number] Variax - [id number] Implanted:Qty: 1 on 07/07/2024 by Rustam Monreal DO at [facility] Implant Right: Ankle SHANTI [id number] / / Plate Fibula Lateral Distal 8 Hole 137mm - [id number] Implanted:Qty: 1 on 07/07/2024 by Rustam Monreal DO at [facility] Plate Right: Ankle SHANTI [id number] / / Screw Locking Fully Threaded With T10 Drive [id number] [employer] - [id number] Implanted:Qty: 2 on 07/07/2024 by Rustam Monreal DO at [facility] Screw Right: Ankle SHANTI [id number] / / Screw Locking Fully Threaded With T10 Drive [id number] [employer]x - [id number] Implanted:Qty: 1 on 07/07/2024 by Rustam Monreal DO at [facility] Screw Right: Ankle SHANTI [id number] / / Screw Non-Locking Fully Threaded With T10 Drive [id number] [employer]x - [id number] Implanted:Qty: 3 on 07/07/2024 by Rustam Monreal DO at [facility] Screw Right: Ankle SHANTI [id number] / / Screw Non-Locking Fully Threaded With T10 Drive [id number] [employer]x - [id number] Implanted:Qty: 1 on 07/07/2024 by Rustam Monreal DO at [facility] Screw Right: Ankle SHANTI [id number] / / Screw Non-Locking Fully Threaded With T10 Drive [id number] V[employer]x - [id number] Implanted:Qty: 1 on 07/07/2024 by Rustam Monreal DO at [facility] Screw Right: Ankle SHANTI [id number] / / Screw Non-Locking Fully Threaded With T10 Drive [id number] [employer]x - [id number] Implanted:Qty: 1 on 07/07/2024 by Rustam Monreal DO at [facility] Screw Right: Ankle SHANTI [id number] / / Procedures * Due to [place] state law, this organization might not be sharing negative HIV tests. Procedure Name Priority Date/Time Associated Diagnosis Comments UA/CULTURE REFLEX Routine 06/08/2025 1:3 5 PM EDT URINALYSIS W/REFLEX TO MICROSCOPIC & CULTURE Routine 06/08/2025 1:35 PM EDT RAPID COVID-19, FLU A, FLU B & RSV RNA PCR, SYMPTOMATIC (ED ONLY) STAT 06/08/2025 12:37 PM EDT MAGNESIUM STAT 06/08/2025 12:37 PM EDT LIPASE STAT 06/08/2025 12:37 PM EDT HEPATIC FUNCTION PANEL STAT 06/08/2025 12:37 PM EDT BASIC METABOLIC PANEL STAT 06/08/2025 12:37 PM EDT CBC AUTO DIFFERENTIAL STAT 06/08/2025 12:[address] HEAD WO CONTRAST STAT 06/08/2025 1 0:24 AM EDT ECG 12-LEAD STAT 06/08/2025 9:46 AM EDT BASIC METABOLIC PANEL STAT 05/16/2025 11:42 AM EDT RAPID COVID-19 RNA FOR SURVEILLANCE (ED ONLY) STAT 05/15/2025 5:13 PM EDT XR CHEST 2 VW STAT 05/15/2025 3:38 PM EDT XR CHEST 2 VW STAT 05/15/2025 1:34 PM EDT UA/CULTURE REFLEX Routine 05/15/2025 1:2 5 PM EDT URINALYSIS W/REFLEX TO MICROSCOPIC & CULTURE Routine 05/15/2025 1:25 PM EDT BASIC METABOLIC PANEL STAT 05/15/2025 12:15 PM EDT CBC AUTO DIFFERENTIAL STAT 05/15/2025 12:15 PM EDT ECG 12-LEAD STAT 05/15/2025 12:08 PM EDT POCT GLUCOSE Routine 05/15/2025 12:02 PM EDT XR CHEST 1 VW STAT 03/19/2025 1:43 AM EDT TROPONIN T HIGH SENSITIVITY STAT 03/19/2025 12:18 AM EDT TROPONIN T HIGH SENSITIVITY STAT 03/18/2025 11:13 PM EDT ECG 12-LEAD STAT 03/18/2025 11:03 PM EDT BASIC METABOLIC PANEL STAT 03/18/2025 5:46 PM EDT ECG 12-LEAD STAT 03/18/2025 11:17 AM EDT MAGNESIUM STAT 03/18/2025 10:14 AM EDT LIPASE STAT 03/18/2025 10:14 AM EDT HEPATIC FUNCTION PANEL STAT 03/18/2025 10:14 AM EDT BASIC METABOLIC PANEL STAT 03/18/2025 10:14 AM EDT CBC AUTO DIFFERENTIAL STAT 03/18/2025 10:14 AM EDT RAPID COVID-19 RNA FOR SURVEILLANCE (ED ONLY) STAT 03/18/2025 10:[address] ABDOMEN PELVIS W CONTRAST STAT 11/06/2024 11:[address] CHEST PULMONARY EMBOLISM W CONTRAST STAT 06/26/2024 7:37 PM EDT HEMOGLOBIN A1C Routine 04/21/2024 10:18 AM EDT Healthcare maintenance MICROALBUMIN, RANDOM URINE WITH CREATININE Routine 10/31/2023 1:55 PM EST Type 2 diabetes mellitus without complication, without long-term current use of insulin HEPATITIS C ANTIBODY W/REFLEX TO HCV RNA, QUANTITATIVE PCR STAT 08/07/2023 8:23 PM EST OCCULT BLOOD (X1), STOOL Routine 10/18/2019 4:30 AM EST from Last 3 Months or Most Recently Relevant to Health Maintenance Results * Due to [place] state law, this organization might not be sharing negative HIV tests. * Urinalysis W/Reflex to Microscopic & Culture (06/08/2025 1:35 PM EDT) Only the most recent of2 resultswithin the time period is included. Color, Urine Light Yellow Colorless, Light Yellow, Yellow, Dark Yellow 06/08/2025 1:49 PM EDT [facility] Clarity, Urine Clear Clear 06/08/2025 1:49 PM EDT [facility] Specific [place], Urine <1.005 <1.030 06/08/2025 1:49 PM EDT [facility] pH, Urine 6.5 5.0 - 8.0 06/08/2025 1:49 PM EDT [facility] Protein, Urine Negative Negative 06/08/2025 1:49 PM EDT [facility] Glucose, Urine Negative Negative 06/08/2025 1:49 PM EDT [facility] Ketones, Urine Negative Negative 06/08/2025 1:49 PM EDT [facility] Bilirubin, Urine Negative Negative 06/08/2025 1:49 PM EDT [facility] Blood, Urine Negative Negative 06/08/2025 1:49 PM EDT [facility] Nitrite, Urine Negative Negative 06/08/2025 1:49 PM EDT [facility] Urobilinogen , Urine Normal Normal 06/08/2025 1:49 PM EDT [facility] Leukocyte Esterase, Urine Negative Negative 06/08/2025 1:49 PM EDT [facility] Urine Urine specimen collection, clean catch / Unknown Non-Blood Collection / Unknown 06/08/2025 1:35 PM EDT 06/08/2025 1:38 PM EDT [facility] - 06/08/2025 1:49 PM EDT Microscopic not indicated according to established criteria. Some urinalysis results will not meet the criteria for reflex urine culture although certain urine values may be abnormal. Additional testing can be ordered by the provider if clinically warranted. us Avinash Conway MD LAB URINE ORDERABLES Final Resul t [facility] [address] [address], [place] * Rapid COVID-19, FLU A, FLU B & RSV RNA PCR, Symptomatic (06/08/2025 12:37 PM EDT) [facility] PCR, SARS CoV-2 RNA Not Detected Not Detected CEPHEID GENEXPERT 06/08/2025 1:39 PM EDT [facility] Comment:A Not Detected (Nega tive) test result is indicative of the absence of SARS-CoV-2 RNA at the level of LoD (Limit of Detection). A negative result does not rule out the possibility of COVID-19 and should not be used as the sole basis for treatment or patient management decisions. If COVID-19 is still suspected, based on exposure history together with other clinical findings, re-testing should be considered. Flu A RNA PCR Not Detected Not Detected CEPHEID GENEXPERT 06/08/2025 1:39 PM EDT [facility] Comment:Negative results do not preclude infection and should not be used as the sole basis for diagnosis, treatment or other patient management decisions. Negative results must be combined with clinical observations, patient history, and/or epidemiological information. Flu B RNA PCR Not Detected Not Detected CEPHEID GENEXPERT 06/08/2025 1:39 PM EDT [facility] Comment:Negative results do not preclude infection and should not be used as the sole basis for diagnosis, treatment or other patient management decisions. Negative results must be combined with clinical observations, patient history, and/or epidemiological information. RSV RNA PCR Not Detected Not Detected CEPHEID GENEXPERT 06/08/2025 1:39 PM EDT [facility] Comment:Negative results do not preclude infection and should not be used as the sole basis for diagnosis, treatment or other patient management decisions. Negative results must be combined with clinical observations, patient history, and/or epidemiological information. Swab (Nares) Non-Blood Collection / Unknown 06/08/2025 12:37 PM EDT 06/08/2025 12:42 PM EDT Narrative [facility] - 06/08/2025 1:39 PM EDT This test was developed, validated and its performance characteristics determined by [facility]. This test has not been cleared or approved by the U.S. Food and Drug Administration (FDA). FDA Policy for Diagnostic Tests for Coronavirus Disease-2019 during the Public Health Emergency issued November 08, 2019, is followed. us Avinash Conway MD LAB BODY FLUIDS AND STOOLS ORDER DHAVAL Final Result [facility] [address] [place] [address], [place] * (ABNORMAL) CBC Auto Differential (06/08/2025 12:37 PM EDT) Only the most recent of3 resultswithin the time period is included. WBC 7.8 3.8 - 10.8 10*3/uL 06/08/2025 12:44 PM EDT [facility] RBC 4.18(L) 4.20 - 5.80 10*6/uL 06/08/2025 12:44 PM EDT [facility] Hemoglobin 12.2(L) 13.2 - 17.1 g/dL 06/08/2025 12:44 PM EDT [facility] Hematocrit 34.9(L) 38.5 - 50.0 % 06/08/2025 12:44 PM EDT [facility] MCV 83.5 80.0 - 100.0 fL 06/08/2025 12:44 PM EDT [facility] MCH 29.2 27.0 - 33.0 pg 06/08/2025 12:44 PM EDT [facility] MCHC 35.0 32.0 - 36.0 g/dL 06/08/2025 12:44 PM EDT [facility] RDW 13.6 11.0 - 15.0 % 06/08/2025 12:44 PM EDT [facility] Platelets 316 140 - 400 10*3/uL 06/08/2025 12:44 PM EDT [facility] MPV 9.1 7.5 - 12.5 fL 06/08/2025 12:44 PM EDT [facility] Neutrophil % 62.3 % 06/08/2025 12:44 PM EDT [facility] Immature Grans % 0.4 0.0 - 0.9 % 06/08/2025 12:44 PM EDT [facility] Lymphocyte % 25.6 % 06/08/2025 12:44 PM EDT [facility] Monocyte % 9.4 % 06/08/2025 12:44 PM EDT [facility] Eosinophil % 1.7 % 06/08/2025 12:44 PM EDT [facility] Basophil % 0.6 % 06/08/2025 12:44 PM EDT [facility] Neutrophil # 4.88 1.50 - 7.80 10*3/uL 06/08/2025 12:44 PM EDT [facility] Immature Grans # 0.03 <=0.03 10*3/uL 06/08/2025 12:44 PM EDT [facility] Lymphocyte # 2.00 0.85 - 3.90 10*3/uL 06/08/2025 12:44 PM EDT [facility] Monocyte # 0.70 0.20 - 0.95 10*3/uL 06/08/2025 12:44 PM EDT [facility] Eosinophil # 0.10 0.02 - 0.50 10*3/uL 06/08/2025 12:44 PM EDT [facility] Basophil # 0.10 0.00 - 0.20 10*3/uL 06/08/2025 12:44 PM EDT [facility] nRBC % 0.0 /100 WBCs 06/08/2025 12:44 PM EDT [facility] nRBC # <0.01 <0.01 10*3/uL 06/08/2025 12:44 PM EDT [facility] Blood Structure of peripheral vein / Unknown Venipuncture / Unknown 06/08/2025 12:37 PM EDT 06/08/2025 12:42 PM EDT us Avinash Conway MD LAB BLOOD ORDERABLES Final Resul t [facility] [address] [place] [address], [place] * Magnesium (06/08/2025 12:37 PM EDT) Only the most recent of2 resultswithin the time period is included. MG 1.9 1.6 - 2.4 mg/dL 06/08/2025 1:18 PM EDT [facility] Blood Structure of peripheral vein / Unknown Venipuncture / Unknown 06/08/2025 12:37 PM EDT 06/08/2025 12:42 PM EDT us Avinash Conway MD LAB BLOOD ORDERABLES Final Resul t Performing Organization Address [facility] Co de Phone Number [facility] [address] [place] [phone], * Lipase (06/08/2025 12:37 PM EDT) Only the most recent of2 resultswithin the time period is included. Lipase 21 13 - 60 U/L 06/08/2025 1:18 PM EDT [facility] Blood Structure of peripheral vein / Unknown Venipuncture / Unknown 06/08/2025 12:37 PM EDT 06/08/2025 12:42 PM EDT us Avinash Conway MD LAB BLOOD ORDERABLES Final Resul t Performing Organization Address [facility] Co de Phone Number [facility] [address] [place] [phone], [place] * Hepatic Function Panel (06/08/2025 12:37 PM EDT) Only the most recent of2 resultswithin the time period is included. Total Protein 7.3 6.0 - 8.0 g/dL 06/08/2025 1:18 PM EDT [facility] Albumin 4.4 3.5 - 5.2 g/dL 06/08/2025 1:18 PM EDT [facility] Globulin, Total 2.9 2.1 - 4.2 g/dL 06/08/2025 1:18 PM EDT [facility] Bilirubin, Total 0.4 0.2 - 1.2 mg/dL 06/08/2025 1:18 PM EDT [facility] Bilirubin, Direct 0.1 <=0.4 mg/dL 06/08/2025 1:18 PM EDT [facility] Alkaline Phosphatase 95 35 - 129 U/L 06/08/2025 1:18 PM EDT [facility] AST 20 10 - 40 U/L 06/08/2025 1:18 PM EDT [facility] ALT 19 10 - 40 U/L 06/08/2025 1:18 PM EDT [facility] Bilirubin, Indirect 0.30 <=0.70 mg/dL 06/08/2025 1:18 PM EDT [facility] A/G Ratio 1.5 1.5 - 3.0 06/08/2025 1:18 PM EDT [facility] Blood Structure of peripheral vein / Unknown Venipuncture / Unknown 06/08/2025 12:37 PM EDT 06/08/2025 12:42 PM EDT us Avinash Conway MD LAB BLOOD ORDERABLES Final Resul t [facility] [address] [place] [address], [place] * (ABNORMAL) BMP - Basic Metabolic Panel (06/08/2025 12:37 PM EDT) Only the most recent of5 resultswithin the time period is included. NA 134(L) 135 - 145 mmol/L 06/08/2025 1:18 PM EDT [facility] K 3.9 3.5 - 5.3 mmol/L 06/08/2025 1:18 PM EDT [facility] Cl 99 97 - 110 mmol/L 06/08/2025 1:18 PM EDT [facility] CO2 24 22 - 32 mmol/L 06/08/2025 1:18 PM EDT [facility] BUN 6(L) 7 - 23 mg/dL 06/08/2025 1:18 PM EDT [facility] Creatinine 0.91 0.60 - 1.30 mg/dL 06/08/2025 1:18 PM EDT [facility] Glucose 122(H) 65 - 99 mg/dL 06/08/2025 1:18 PM EDT [facility] Calcium 9.6 8.6 - 10.5 mg/dL 06/08/2025 1:18 PM EDT [facility] Anion Gap 11 5 - 15 06/08/2025 1:18 PM EDT [facility] eGFR >90 >=60 mL/min/1 .73m2 06/08/2025 1:18 PM EDT [facility] Comment:The estimated glomer ular filtration rate (eGFR) is calculated using a new formula developed by the NKF-ASN task force to eliminate race-based correction factors. The new formula uses serum/plasma creatinine, age, and gender to determine eGFR. A value below 60mls/min might indicate kidney disease and will be flagged. For additional information, see Law et al, Am J Kidney Dis. 2021;79(2):268- 288, A Unifying Approach for GFR estimation: Recommendations of the NKF-ASN Task Force on Reassessing the Inclusion of Race in Diagnosing Kidney Disease . Blood Structure of peripheral vein / Unknown Venipuncture / Unknown 06/08/2025 12:37 PM EDT 06/08/2025 12:42 PM EDT us Avinash Conway MD LAB BLOOD ORDERABLES Final Resul t [facility] [address] [place] [address], [place] * CT Head WO Contrast (06/08/2025 10:24 AM EDT) Anatomical Region Laterality Modality Head and Neck Computed Tomogra phy 06/08/2025 11:2 8 AM EDT Impressions 06/08/2025 11:41 AM EDT No acute intracranial abnormality is identified. If this radiology report contains a blank impression section, it is an incomplete radiology report. Please contact the interpreting radiologist or applicable radiology division as soon as possible to obtain the completed interpretation. Workstation ID: [id number] Narrative 06/08/2025 11:41 AM EDT EXAMINATION: CT of head without contrast TECHNIQUE: CT of the head performed without intravenous contrast. Multiplanar reformats created. CLINICAL INFORMATION: Leg weakness. COMPARISON: CT of the head from 06/26/2024. FINDINGS: There is no acute intracranial bleed, mass lesion, or shift of midline structures. The dent-white differentiation is maintained. No acute infarct is identified. The ventricles and extra-axial CSF spaces are normal for age. No hydrocephalus. The cerebellar tonsils are normal in position. No fracture is identified. A small mucous retention cyst or polyp is present in the right maxillary sinus. No significant inflammatory changes identified in the included portions of the paranasal sinuses and mastoid air cells. Resulting Agency Comment [id number] Procedure Note Rey Nunez MD - 06/08/2025 EXAMINATION: CT of head without contrast TECHNIQUE: CT of the head performed without intravenous contrast. Multiplanarreformats created. CLINICAL INFORMATION: Leg weakness. COMPARISON: CT of the head from 06/26/2024. FINDINGS: There is no acute intracranial bleed, mass lesion, or shift of midlinestructures. The dent-white differentiation is maintained. No acute infarctis identified. The ventricles and extra-axial CSF spaces are normal forage. No hydrocephalus. The cerebellar tonsils are normal in position. No fracture is identified. A small mucous retention cyst or polyp ispresent in the right maxillary sinus. No significant inflammatory changesidentified in the included portions of the paranasal sinuses and mastoidair cells. IMPRESSION: No acute intracranial abnormality is identified. If this radiology report contains a blank impression section, it is anincomplete radiology report. Please contact the interpreting radiologistor applicable radiology division as soon as possible to obtain thecompleted interpretation. Workstation ID: [id number] us Avinash Conway MD IMG CT PROCEDURES Final Result * ECG 12 lead (06/08/2025 9:46 AM EDT) Only the most recent of4 resultswithin the time period is included. Ventricular Rate EKG 77 BPM MUSE EKG Atrial Rate 77 BPM MUSE EKG MI Interval 136 ms MUSE EKG QRS Interval 94 ms MUSE EKG QT Interval 410 ms MUSE EKG QTC Interval 463 ms MUSE EKG P [place] -14 degrees MUSE EKG R [place] 66 degrees MUSE EKG T Wave [place] 10 degrees MUSE EKG 06/08/2025 9:46 AM EDT 06/09/2025 1:24 PM EDT Impressions MUSE EKG - 06/09/2025 1:24 PM EDT Normal sinus rhythm Normal ECG Possible limb lead reversal When compared with ECG of 15-May-2025 12:08, Nonspecific T wave abnormality now evident in Inferior leads Confirmed by Praneeth Otoole ([id number]) on 06/09/2025 1:24:30 PM Narrative Procedure Note Praneeth Otoole MD - 06/09/2025 IMPRESSION: Normal sinus rhythm Normal ECG Possible limb lead reversal When compared with ECG of 15-May-2025 12:08, Nonspecific T wave abnormality now evident in Inferior leads Confirmed by Praneeth Otoole ([id number]) on 06/09/2025 1:24:30 PM us Avinash Conway MD ECG ORDERABLES Final Result MUSE EKG * Rapid COVID-19 for Surveillance - Psych/Admission (05/15/2025 5:13 PM EDT) Only the most recent of2 resultswithin the time period is included. PCR, SARS CoV-2 RNA Not Detected Not Detected CEPHEID GENEXPERT 05/15/2025 5:56 PM EDT [facility] Comment:A Not Detected (Nega tive) test result is indicative of the absence of SARS-CoV-2 RNA at the level of LoD (Limit of Detection). A negative result does not rule out the possibility of COVID-19 and should not be used as the sole basis for treatment or patient management decisions. If COVID-19 is still suspected, based on exposure history together with other clinical findings, re-testing should be considered. Swab (Nares) 05/15/2025 5:13 PM EDT 05/15/2025 5:13 PM EDT Narrative [facility] - 05/15/2025 5:56 PM EDT This test was developed, validated and its performance characteristics determined by [facility]. This test has not been cleared or approved by the U.S. Food and Drug Administration (FDA). FDA Policy for Diagnostic Tests for Coronavirus Disease-2019 during the Public Health Emergency issued November 08, 2019, is followed. us Moise Marie MD LAB BODY FLUIDS AND STOO LS ORDERABLES Final Result [facility] [address] [place] [address], [place] * X-Ray Chest 2 Views (05/15/2025 3:38 PM EDT) Only the most recent of2 resultswithin the time period is included. Anatomical Region Laterality Modality Body Computed Radiogr aphy 05/15/2025 4:05 PM EDT Impressions 05/15/2025 4:10 PM EDT Nodular density in the left lower lung field. A follow-up, nonurgent urgent, chest CT scan is recommended at this time. If this radiology report contains a blank impression section, it is an incomplete radiology report. Please contact the interpreting radiologist or applicable radiology division as soon as possible to obtain the completed interpretation. Workstation ID: [id number] Narrative 05/15/2025 4:10 PM EDT History: radiology rec - PA and lateral views the chest with nipple markers are recommended COMPARISON: Chest radiograph from earlier in the day. FINDINGS: On the current film, there are nipple markers present. There does appear to be a nodular density in the left lower lung field which is not related to the left nipple, as indicated by the left marker. This may represent a nodule present in the left lung or, possibly, on the soft tissues. A CT scan is recommended. It should be noted that nodules were noted in the left lung on the CT scan from 06/26/2024. A follow-up chest CT scan was recommended at that time. The heart and mediastinum are within normal limits. There are sternotomy wires present. Resulting Agency Comment [id number] Procedure Note Celso Quan MD - 05/15/2025 History: radiology rec - PA and lateral views the chest with nipplemarkers are recommended COMPARISON: Chest radiograph from earlier in the day. FINDINGS: On the current film, there are nipple markers present. Theredoes appear to be a nodular density in the left lower lung field which isnot related to the left nipple, as indicated by the left marker. This mayrepresent a nodule present in the left lung or, possibly, on the softtissues. A CT scan is recommended. It should be noted that nodules werenoted in the left lung on the CT scan from 06/26/2024. A follow-up chestCT scan was recommended at that time. The heart and mediastinum arewithin normal limits. There are sternotomy wires present. IMPRESSION: Nodular density in the left lower lung field. A follow-up, nonurgenturgent, chest CT scan is recommended at this time. If this radiology report contains a blank impression section, it is anincomplete radiology report. Please contact the interpreting radiologistor applicable radiology division as soon as possible to obtain thecompleted interpretation. Workstation ID: [id number] us Moise Marie MD IMG XR PROCEDURES Final Result * (ABNORMAL) POCT Glucose, interfaced (05/15/2025 12:02 PM EDT) Glucose, POCT 114(H) 70 - 99 mg/dL 05/15/2025 12:08 PM EDT [facility] Comment:Glucometer point of care testing platforms using capillary blood are not approved for use in critically ill patients. Blood 05/15/2025 12:0 2 PM EDT 05/15/2025 12:08 PM EDT us Doctor Unknown LAB POCT ORDERABLES - DEVICE Fin al Result [facility] Adea BILLY, POC [address] [place] [address], [place] * XR Chest 1 vw (03/19/2025 1:43 AM EDT) Anatomical Region Laterality Modality Body Digital Radiogra phy 03/19/2025 1:56 AM EDT Impressions 03/19/2025 1:56 AM EDT No acute pulmonary process. If this radiology report contains a blank impression section, it is an incomplete radiology report. Please contact the interpreting radiologist or applicable radiology division as soon as possible to obtain the completed interpretation. Workstation ID: [id number] Narrative 03/19/2025 1:56 AM EDT COMPARISON: 11/06/2024. FINDINGS: The lungs are clear without focal consolidation, pleural effusion or pneumothorax. The cardiac silhouette and mediastinum are unremarkable. The pulmonary vasculature is within normal limits. There are no focal osseus lesions. There is no pneumomediastinum or subdiaphragmatic free air. The sternotomy wires are intact. Resulting Agency Comment [id number] Procedure Note Anthony Vinson MD - 03/19/2025 COMPARISON: 11/06/2024. FINDINGS: The lungs are clear without focal consolidation, pleural effusion orpneumothorax. The cardiac silhouette and mediastinum are unremarkable. Thepulmonary vasculature is within normal limits. There are no focal osseuslesions. There is no pneumomediastinum or subdiaphragmatic free air. Thesternotomy wires are intact. IMPRESSION: No acute pulmonary process. If this radiology report contains a blank impression section, it is anincomplete radiology report. Please contact the interpreting radiologistor applicable radiology division as soon as possible to obtain thecompleted interpretation. Workstation ID: [id number] us Fawad Marin MD IMG XR PROCEDURES Final Re sult * Repeat Troponin #1 (03/19/2025 12:18 AM EDT) Only the most recent of2 resultswithin the time period is included. Troponin T High Sensitivity 10 <=21 ng/L 03/19/2025 1:10 AM EDT [facility] Comment: Sw-Pilttbyq-H level of 52 ng/L or higher at 0-hour at presentation is recommended by the ESC 0/1-hour algorithm for identifying patients at high risk for ruling in acute myocardial infarction (AMI) in the appropriate clinical context. Repeat troponin testing 1-3 hours after the initial sample may be helpful in assessing for ongoing myocardial injury. Troponin elevations can be seen in several other non-infarct conditions, and the change (delta) should be evaluated in line with the 4th [place] Definition of AMI. Troponin baseline and serial elevation for a significant delta should be interpreted with clinical presentation, history, signs and symptoms, ECG, and biomarker concentrations. For inpatient setting: Value <12ng/L is considered negative for all genders. 0-1hr: A delta change of <3 will be considered negative/flat if chest pain onset >3 hours 0-3hr: A delta change of <7 will be considered negative/flat Blood Structure of peripheral vein / Unknown Venipuncture / Unknown 03/19/2025 12:18 AM EDT 03/19/2025 12:23 AM EDT us Fawad Marin MD LAB BLOOD ORDERABLES Final Result [facility] [address] [place] [address], [place] * CT Chest Pulmonary Embolism W Contrast (06/26/2024 7:37 PM EDT) Anatomical Region Laterality Modality Body Computed Tomogra phy 06/26/2024 7:43 PM EDT Impressions 06/26/2024 8:10 PM EDT No pulmonary embolus. Interval development of nodular opacity in the left lingula with radial parenchymal distortion as above. Configuration is concerning for neoplasm. Single solid nodule bigger than 8mm. For this type of nodule, the Fleischner Society recommends to consider CT at 3 months, PET-CT, or tissue sampling in both patients at a low and at a high risk for lung cancer. For comments and reference, please see [https://doi.org/10.1148/radiol.9505571887]. For information about nodule measurements and reporting, please see [https://pubs.rsna.org/doi/10.1148/radiol.0642577265]. 7-8 mm groundglass nodule of the left lower lobe as above. Single ground-glass nodule bigger than 6mm. For this type of nodule, the Fleischner Society recommends CT in 6 to12 months to confirm persistence, then CT every 2 years until 5 years. For comments and reference, please see [https://doi.org/10.1148/radiol.6183082183]. For information about nodule measurements and reporting, please see [https://pubs.rsna.org/doi/10.1148/radiol.6513311489]. Incidental ascending and descending thoracic aorta approaching upper limits normal for size. If this radiology report contains a blank impression section, it is an incomplete radiology report. Please contact the interpreting radiologist or applicable radiology division as soon as possible to obtain the completed interpretation. Workstation ID: [id number] Up-to-date CT equipment and radiation dose reduction techniques were employed. CTDIvol: 9.9 - 18.3 mGy. DLP: 640 mGy-cm. Narrative 06/26/2024 8:10 PM EDT INDICATION: Pulmonary embolism (PE) suspected, positive D-dimer. Per clinical record: 58 y.o. year old male with past medical history of anxiety, chronic diarrhea, depression, diabetes, hallucinations, coronary artery disease, hypercholesterolemia, hypertension, irritable bowel syndrome, schizoaffective disorder, CHARITY, history of substance abuse as well as alcohol abuse not currently active resides in a senior living presenting with generalized weakness, multiple episodes of loss of consciousness, with subsequent right knee pain after syncopal event that occurred earlier today. Patient reports that he is at the senior living, has been feeling more weak than usual, states that he has been laying in bed, and then today when he got up he fell and hit his head after loss of consciousness as well as he thinks he broke his right ankle. He denies any distal numbness or tingling. Reports pain is primarily in the outside of the ankle. Denies any significant chest pain, no nausea no vomiting. He does report a sensation of shortness of breath today as well. Denies any outright fevers. He reports decreased urinary frequency today. EXAMINATION: CONTRAST ENHANCED CT OF THE CHEST: TECHNIQUE: Axial images were acquired from the thoracic inlet through the upper abdomen following the introduction of IV contrast. Coronal and sagittal reconstructions of the axial data were constructed for review. COMPARISONS: 01/08/2020 FINDINGS: LUNGS: There has been interval development of a soft tissue nodule measuring 7 x 9 mm transverse diameter with some evidence of surrounding radial architectural distortion (series #3; image #[id number]). There has also been development of an 8 mm nodular groundglass opacity is seen in the left lower lobe (series #3; image #[id number]). The lungs otherwise demonstrate mild basilar dependent atelectasis and are clear. PLEURAL SPACE: The pleural space demonstrates no evidence for effusion or pneumothorax. There are no masses appreciated. VESSELS: The aorta demonstrates normal course and contour regular but are approaching upper limits normal in size in both the ascending and descending segment at the level of the right main pulmonary artery. The vena cava demonstrates normal course and contour. The pulmonary arteries enhance normally and demonstrate normal configuration. HEART AND MEDIASTINUM: The heart demonstrates grossly normal appearance on this noncardiac gated examination. The pericardium is unremarkable. The trachea and central bronchi are unremarkable. THORACIC WALL AND SPINE: Ribs demonstrate normal architecture and density. The sternum demonstrates sternotomy sutures, but is otherwise unremarkable. The thoracic spine demonstrates normal density and vertebral architecture. There is normal alignment with normal thoracic kyphosis. * Resulting Agency Comment [id number] Procedure Note Alex Angel MD - 06/26/2024 INDICATION: Pulmonary embolism (PE) suspected, positive D-dimer. Perclinical record: 58 y.o. year old male with past medical history ofanxiety, chronic diarrhea, depression, diabetes, hallucinations, coronaryartery disease, hypercholesterolemia, hypertension, irritable bowelsyndrome, schizoaffective disorder, CHARITY, history of substance abuse aswell as alcohol abuse not currently active resides in a group homepresenting with generalized weakness, multiple episodes of loss ofconsciousness, with subsequent right knee pain after syncopal event thatoccurred earlier today. Patient reports that he is at the senior living, hasbeen feeling more weak than usual, states that he has been laying in bed,and then today when he got up he fell and hit his head after loss ofconsciousness as well as he thinks he broke his right ankle. He deniesany distal numbness or tingling. Reports pain is primarily in the outsideof the ankle. Denies any significant chest pain, no nausea no vomiting.He does report a sensation of shortness of breath today as well. Denies anyoutright fevers. He reports decreased urinary frequency today. EXAMINATION: CONTRAST ENHANCED CT OF THE CHEST: TECHNIQUE: Axial images were acquired from the thoracic inlet through theupper abdomen following the introduction of IV contrast. Coronal andsagittal reconstructions of the axial data were constructed for review. COMPARISONS: 01/08/2020 FINDINGS: LUNGS: There has been interval development of a soft tissue nodulemeasuring 7 x 9 mm transverse diameter with some evidence of surroundingradial architectural distortion (series #3; image #[id number]). There hasalso been development of an 8 mm nodular groundglass opacity is seen inthe left lower lobe (series #3; image #[id number]). The lungs otherwisedemonstrate mild basilar dependent atelectasis and are clear. PLEURAL SPACE: The pleural space demonstrates no evidence for effusion orpneumothorax. There are no masses appreciated. VESSELS: The aorta demonstrates normal course and contour regular but areapproaching upper limits normal in size in both the ascending anddescending segment at the level of the right main pulmonary artery. Thevena cava demonstrates normal course and contour. The pulmonary arteriesenhance normally and demonstrate normal configuration. HEART AND MEDIASTINUM: The heart demonstrates grossly normal appearance onthis noncardiac gated examination. The pericardium is unremarkable. Thetrachea and central bronchi are unremarkable. THORACIC WALL AND SPINE: Ribs demonstrate normal architecture and density.The sternum demonstrates sternotomy sutures, but is otherwiseunremarkable. The thoracic spine demonstrates normal density andvertebral architecture. There is normal alignment with normal thoracickyphosis. * IMPRESSION: No pulmonary embolus. Interval development of nodular opacity in the left lingula with radialparenchymal distortion as above. Configuration is concerning for neoplasm.Single solid nodule bigger than 8mm. For this type of nodule, theFleischner Society recommends to consider CT at 3 months, PET-CT, ortissue sampling in both patients at a low and at a high risk for lungcancer. For comments and reference, please see[https://doi.org/10.1148/radiol.6277326504]. For information about nodulemeasurements and reporting, please see[https://pubs.rsna.org/doi/10.1148/radiol.9358042065]. 7-8 mm groundglass nodule of the left lower lobe as above. Singleground-glass nodule bigger than 6mm. For this type of nodule, theFleischner Society recommends CT in 6 to12 months to confirm persistence,then CT every 2 years until 5 years. For comments and reference, please see[https://doi.org/10.1148/radiol.7587033898]. For information about nodulemeasurements and reporting, please see[https://pubs.rsna.org/doi/10.1148/radiol.7800904590]. Incidental ascending and descending thoracic aorta approaching upperlimits normal for size. If this radiology report contains a blank impression section, it is anincomplete radiology report. Please contact the interpreting radiologistor applicable radiology division as soon as possible to obtain thecompleted interpretation. Workstation ID: [id number] Up-to-date CT equipment and radiation dose reduction techniques wereemployed. CTDIvol: 9.9 - 18.3 mGy. DLP: 640 mGy-cm. Cedrick Li MD [facility] [place] CT PROCEDURES Final Resul t * (ABNORMAL) Hemoglobin A1c (04/21/2024 10:18 AM EDT) Hemoglobin A1C 6.0(H) <5.7 % of total Hgb 04/21/2024 10:40 PM EDT [facility] Comment: For someone without known diabetes, a hemoglobin A1c value between 5.7% and 6.4% is consistent with prediabetes and should be confirmed with a follow-up test. For someone with known diabetes, a value <7% indicates that their diabetes is well controlled. A1c targets should be individualized based on duration of diabetes, age, comorbid conditions, and other considerations. This assay result is consistent with an increased risk of diabetes. Currently, no consensus exists regarding use of hemoglobin A1c for diagnosis of diabetes for children. eAG (MG/DL) 126 mg/dL 04/21/2024 10:40 PM EDT [facility] eAG (MMOL/L) 7.0 mmol/L 04/21/2024 10:40 PM EDT [facility] Comment: This test was performed on the Rashad joel c503 platform. Effective 10/27/23, a change in test platforms from the [employer] to the Rashad joel c503 may have shifted HbA1c results compared to historical results. Based on laboratory validation testing conducted at [email or web address], the Rashad platform relative to the Cristina platform had an average increase in HbA1c value of < or = 0.3%. This difference is within accepted variability established by the National Glycohemoglobin Standardization Program. Note that not all individuals will have had a shift in their results and direct comparisons between historical and current results for testing conducted on different platforms is not recommended. Blood Structure of peripheral vein / Unknown 04/21/2024 10:18 AM EDT 04/21/2024 6:04 PM EDT Narrative [facility] - 04/21/2024 10:42 PM EDT FASTING:YES us Yasemin Wilcox NP LAB BLOOD ORDERABLES Final Res ult [facility] [address] [facility] [address], [place] [address], [facility] [address] [place] [address] * Microalbumin / creatinine, urine ratio (Lab Collect) (10/31/2023 1:55 PM EST) Pathologist [facility] Creatinine, Random Urine 25 20 - 320 mg/dL 11/01/2023 5:39 PM EST [employer] [facility] Microalbumin <0.2 mg/dL 11/01/2023 5:39 PM EST [employer] [facility] Comment: Reference Range Not established Microalbumin/Crea tinine Ratio, Random Urine NOTE <30 mcg/mg creat 11/01/2023 5:39 PM EST [facility] Comment: NOTE: The urine albumin value is less than 0.2 mg/dL therefore we are unable to calculate excretion and/or creatinine ratio. The ADA defines abnormalities in albumin excretion as follows: Albuminuria Category Result (mcg/mg creatinine) Normal to Mildly increased <30 Moderately increased 30-299 Severely increased > OR = 300 The ADA recommends that at least two of three specimens collected within a 3-6 month period be abnormal before considering a patient to be within a diagnostic category. Urine Urine specimen collection, clean catch / Unknown 10/31/2023 1:55 PM EST 10/31/2023 11:16 PM EST Narrative [facility] - 11/01/2023 5:48 PM EST FASTING:NO us Yancy Alejandre MD LAB URINE ORDERABLES Final Resu lt [facility] [address] [facility] [address], [place] [address], [place] [phone] [employer] [facility] [address] [place] [address] * Hepatitis C Antibody w/Reflex to HCV RNA, Quantitative PCR (08/07/2023 8:23 PM EST) Hepatitis C Antibody Interpretation Nonreactive Nonreactive [facility] 10:50 AM EST [facility] [employer] [facility] Blood Structure of peripheral vein / Unknown Venipuncture / Unknown 08/07/2023 8:23 PM EST 08/07/2023 8:27 PM EST us Jacques Dumont MD LAB BLOOD ORDERABLES Final Result [facility] [address] [place] [id number], * Occult Blood (x1), Stool (10/18/2019 4:30 AM EST) Occult Blood, Stool #1 Negative Negative [facility] 10/18/2019 7:47 AM EST [facility] Stool Rectal route / Unknown Non-Blood Collection / Unknown 10/18/2019 4:30 AM EST 10/18/2019 7:42 AM EST us Savannah Ko MD LAB BODY FLUIDS AND STOOLS O RDERABLES Final Result [facility] [address] [place] [id number], from Last 3 Months or Most Recently Relevant to Health Maintenance Insurance DUAL DUAL [facility] MEDICAID [employer] Advance Directives Documents on File Type Date Recorded Patient Exhibit Carpenter Expl anation MOLST/POLST 07/28/2023 11:38 AM Health Care Proxy 11/03/2020 2:30 PM 11-03 * DNR/DNI (with non-invasive ventilation only) (Latest Code Status on File) Date Activated Date Inactivated Comments 06/27/2024 1:57 AM 06/28/2024 9:58 PM * Full Code Date Activated Date Inactivated Comments 06/26/2024 9:57 PM 06/27/2024 1:56 AM * Full Code Date Activated Date Inactivated Comments 01/02/2024 4:30 PM 01/07/2024 3:41 PM * DNR/DNI Date Activated Date Inactivated Comments 08/08/2023 10:48 AM 08/08/2023 7:22 PM * Full Code Date Activated Date Inactivated Comments 08/07/2023 11:29 PM 08/08/2023 10:48 AM Healthcare Agents on File Name Relationship Healthcare Agent Relationshi p Communication Rani Bocanegra Mother Health Care Agent Care Teams Clinical Evaluator Relationship Specialty Start Date End Date Jeannine Dewitt MD [address] [place] [address] [address] [place] [id number] PCP - General Family Medicine 09/14/24
--- OUTSIDE RECORDS SUMMARY | 2025-06-09 19:52 | XMS_ITS | Encounter Summary ---
Author Organization [facility] Address [address] [place] [address] Care Team Providers Care Production Control Analyst Name Role Phone Renate Samuels MD, Jeannine Primary Care Provide r Reason for Visit * Reason Onset Date Comments Scheduling issue identified 06/01/2020 Pt abida deleon have been scheduled for 06/16 at 1:15 PM with [facility], but was scheduled under a different pt with same phone number and address. The wrong appt has been cancelled, but we were unable to reschedule this correct patient for the date and time as it did not pop up as an available appt. Are you able to schedule this pt for that time and date? Please reach out to number above to confirm that they are scheduled for that appt. Thank you Additional information 06/01/2020 New patie nt for urinary retention and to have a cath removed. This patient was supposed to be scheduled for the appt above, but was booked under a wrong patient/MRN. We have since cancelled the wrong patient, but now this pt needs to be seen in this slot. The person who should be called is Esme who was the admin who called to schedule orginally. Her number is [phone] Encounter Details Date Type Department Care Team (Late st Contact Info) Description 06/01/2020 Telephone [facility] Central Scheduling Department [address] [place] [address] Telephone Intake, Staff Scheduling issue identified (Pt should have been scheduled for 06/16 at 1:15 PM with Bo[facility], but was scheduled under a different pt with same phone number and address. The wrong appt has been cancelled, but we were unable to reschedule this correct patient for the date and time as it did not pop up as an available appt. Are you able to schedule this pt for that time and date? Please reach out to number above to confirm that they are scheduled for that appt. Thank you); Additional information (New patient for urinary retention and to have a cath removed. This patient was supposed to be scheduled for the appt above, but was booked under a wrong patient/MRN. We have since cancelled the wrong patient, but now this pt needs to be seen in this slot. The person who should be called is Esme who was the admin who called to schedule orginally. Her number is [phone]) Social History Tobacco Use Types Packs/Day Years Used Date Smoking Tobacco: Some Days Cigarettes 2 30 Started: 05/18/2019; Last attempted to quit: 05/19/2019 Smokeless Tobacco: Never Comments:1-2 cig/day Alcohol Use Standard Drinks/Week Comments Not Currently 49 (1 standard drink = 0.6 oz pu re alcohol) past use 15 yrs ago 2003 Sex and Gender Information Value Date Recorded Sex Assigned at Male 10/02/2023 7:47 AM EST Legal Sex Male 1:06 AM EDT Gender Identity Not on file Sexual Orientation Straight documented as of this encounter Miscellaneous Notes * Telephone Encounter - Vicky Carlisle - 06/01/2020 3:04 PM EDT Patient has been put back on schedule for 06/16 at 1130 * Telephone Encounter - Ofe Day - 06/01/2020 2:53 PM EDT Spoke benjamín/ [facility]. She was able to schedule pt . Spoke benjamín/ esme in requesting md office theywill notify pt. Thank you * Telephone Encounter - Thi Tomlin - 06/01/2020 2:39 PM EDT New patient for urinary retention and to have a cath removed. This patient was supposed to be scheduled for the appt above, but was booked under a wrong patient/MRN. We have since cancelled the wrongpatient, but now this pt needs to be seen in this slot. The person who should be called is Esme who was the admin who called to schedule orginally. Her number is [phone] documented in this encounter Plan of Treatment Upcoming Encounters Date Type Department Care Team (Late st Contact Info) Description 11/07/2025 11:30 AM EDT Office Visit [facility] Diabetes [address] [place] [address] Clinical Services Consultant: Chao Messina MD [address] [place] [phone] Scheduled Procedures Name Priority Associated Diagnoses Date/Ti me COLONOSCOPY SCREENING, HIGH RISK WITH POSSIBLE MODERATE SEDATION History of colon polyps documented as of this encounter Goals Goal Patient Goal Type Associated Problems Recent Progress Patient-Stated? Author General - Chronic complications- prevent/detect /treat General Improving(03/26 10:16 AM EDT) No Rohini Allison RN documented as of this encounter Visit Diagnoses Not on filedocumented in this encounter Additional Health Concerns Infection Onset Date Last Indicated Resolved Time COVID-19 - Suspected infection 07/24/2020 07/25/2020 07/25/2020 9:39 PM EST COVID-19 - Suspected infection 10/05/2020 10/05/2020 10/05/2020 7:07 PM EST COVID-19 - Suspected infection 03/02/2021 03/02/2021 03/03/2021 2:04 AM EDT R/O Influenza 03/02/2021 03/03/2021 03/03/2021 4:2 6 PM EDT R/O Respiratory Virus Infection 08/01/2021 08/01/2021 6:34 PM EST R/O Influenza 08/01/2021 08/01/2021 08/01/2021 6:3 4 PM EST COVID-19 - Suspected infection 08/01/2021 08/01/2021 08/01/2021 6:34 PM EST R/O Respiratory Virus Infection 10/26/2021 10/26/2021 5:10 PM EST R/O Influenza 10/26/2021 10/26/2021 10/26/2021 5:1 0 PM EST COVID-19 - Suspected infection 10/26/2021 10/26/2021 10/26/2021 5:10 PM EST R/O Respiratory Virus Infection 08/30/2022 08/30/2022 2:53 PM EST R/O Influenza 08/30/2022 08/30/2022 08/30/2022 2:5 3 PM EST COVID-19 - Suspected infection 08/30/2022 08/30/2022 08/30/2022 2:53 PM EST R/O Respiratory Virus Infection 09/14/2022 09/14/2022 6:30 AM EST R/O Influenza 09/14/2022 09/14/2022 09/14/2022 6:3 0 AM EST COVID-19 - Suspected infection 09/14/2022 09/14/2022 09/14/2022 6:30 AM EST R/O C.diff 09/16/2022 09/16/2022 09/19/2022 3:54 PM EST R/O Respiratory Virus Infection 10/04/2022 10/04/2022 7:13 PM EST R/O Influenza 10/04/2022 10/04/2022 10/04/2022 7:1 3 PM EST COVID-19 - Suspected infection 10/04/2022 10/04/2022 10/04/2022 7:13 PM EST R/O Respiratory Virus Infection 11/16/2022 11/16/2022 6:18 PM EDT R/O Influenza 11/16/2022 11/16/2022 11/16/2022 6:1 8 PM EDT COVID-19 - Suspected infection 11/16/2022 11/16/2022 11/16/2022 6:18 PM EDT R/O C.diff 11/16/2022 11/17/2022 11/17/2022 4:59 AM EDT R/O C.diff 11/17/2022 11/17/2022 11/17/2022 10:3 0 AM EDT R/O Respiratory Virus Infection 07/27/2023 07/27/2023 3:07 PM EST R/O Influenza 07/27/2023 07/27/2023 07/27/2023 3:0 7 PM EST COVID-19 - Suspected infection 07/27/2023 07/27/2023 07/27/2023 3:07 PM EST R/O Respiratory Virus Infection 08/20/2023 08/20/2023 7:10 PM EST R/O Influenza 08/20/2023 08/20/2023 08/20/2023 7:1 0 PM EST COVID-19 - Suspected infection 08/20/2023 08/20/2023 08/20/2023 7:10 PM EST R/O Respiratory Virus Infection 01/02/2024 01/02/2024 5:42 PM EDT R/O Influenza 01/02/2024 01/02/2024 01/02/2024 5:4 2 PM EDT COVID-19 - Suspected infection 01/02/2024 01/02/2024 01/02/2024 5:42 PM EDT R/O Respiratory Virus Infection 09/27/2024 09/27/2024 7:27 PM EST R/O Influenza 09/27/2024 09/27/2024 09/27/2024 7:2 7 PM EST COVID-19 - Suspected infection 09/27/2024 09/27/2024 09/27/2024 7:27 PM EST R/O Respiratory Virus Infection 11/06/2024 11/06/2024 12:13 PM EDT R/O Influenza 11/06/2024 11/06/2024 11/06/2024 12: 13 PM EDT COVID-19 - Suspected infection 11/06/2024 11/06/2024 11/06/2024 12:13 PM EDT R/O Respiratory Virus Infection 06/08/2025 06/08/2025 1:39 PM EDT R/O Influenza 06/08/2025 06/08/2025 06/08/2025 1:3 9 PM EDT COVID-19 - Suspected infection 06/08/2025 06/08/2025 06/08/2025 1:39 PM EDT documented as of this encounter Care Teams Production Control Analyst Relationship Specialty Start Date End Date Jeannine Dewitt MD [address] [place] [id number] PCP - General Family Medicine 09/14/24 documented as of this encounter
--- OUTSIDE RECORDS SUMMARY | 2025-06-09 19:53 | XMS_ITS | Encounter Summary ---
Author Organization [facility] Address [address] [place] [address] Care Team Providers Care Military Source Operations Specialist Name Role Phone Gabriel Sykes MD Primary Care Provider Susana Nicholas MD Primary Care Provider [phone] Reason for Visit * Reason Comments E-prescribing Refill Request Encounter Details Date Type Department Care Team ([facility] st Contact Info) Description 08/23/2018 Refill [facility] [address] [place] [phone] Juventino Kim MD [address] [address] E-prescribing Refill Request Social History Tobacco Use Types Packs/Day Years [...] on filedocumented in this encounter Care Teams Military Source Operations Specialist Relationship Specialty Start Date End Date Gabriel Sykes MD PCP - General Family Medicine 12/03/13 05/24/22 Susana Ashton MD [address] [place] [address] PCP - General Family Medicine 05/25/22 documented as of this encounter
--- OUTSIDE RECORDS SUMMARY | 2025-06-09 19:53 | XMS_ITS | Encounter Summary ---
Author Organization [facility] Address [address] [place] [address] Care Team Providers Care Net Programmer Analyst Name Role Phone Gabriel Sykes MD Primary Care Provider Susana Nicholas MD Primary Care Provider Reason for Visit * Reason Comments E-prescribing Refill Request Encounter Details Date Type Department Care Team ([facility] st Contact Info) Description 11/28/2018 Refill [facility] [address] [place] [phone] Juventino Kim MD [address] [address] E-prescribing Refill Request Social History Tobacco Use [...] on filedocumented in this encounter Care Teams Net Programmer Analyst Relationship Specialty Start Date End Date Gabriel Sykes MD PCP - General Family Medicine 12/03/13 05/24/22 Susana Ashton MD [address] [place] [address] PCP - General Family Medicine 05/25/22 documented as of this encounter
--- OUTSIDE RECORDS SUMMARY | 2025-06-09 19:53 | XMS_ITS | Encounter Summary ---
Author Organization [facility] Address [address] [place] [address] Care Team Providers Care Quality Inspector Name Role Phone Gabriel Sykes MD Primary Care Provider Susana Nicholas MD Primary Care Provider Reason for Visit * Reason Comments E-prescribing Refill Request Encounter Details Date Type Department Care Team ([facility] st Contact Info) Description 04/06/2018 Refill [facility] [address] [place] [phone] Juventino Kim MD [address] [address] E-prescribing Refill Request Social History Tobacco Use [...] on filedocumented in this encounter Care Teams Quality Inspector Relationship Specialty Start Date End Date Gabriel Sykes MD PCP - General Family Medicine 12/03/13 05/24/22 Susana Ashton MD [address] [place] [address] PCP - General Family Medicine 05/25/22 documented as of this encounter
--- OUTSIDE RECORDS SUMMARY | 2025-06-09 19:53 | XMS_ITS | Clinical Summary ---
Author Organization [facility] Address [address] [place] [phone] Phone Care Team Providers Care Antique Furniture Repairer Name Role Phone Jeannine Dewitt MD Primary Care Provider Allergies Active Allergy Reactions Criticality Noted Date Comments Bupropion 04/18/2025 Haloperidol 04/18/2025 Peanut 04/18/2025 Ziprasidone Hcl 04/18/2025 Encounters Date Type Department Care Team Description 05/10/2025 Telephone [facility] Urology [address] [id number] [place] [address] Unknown, Unknown, 04/18/2025 4:15 PM EDT Ancillary Procedure [facility] Radiology [address] [place] [id number] Justina Mcnamara PA-C 04/18/2025 4:00 PM EDT - 04/18/2025 10:44 PM EDT Emergency [facility] Emergency Department [address] [place] [id number] Dyan Edge MD Welsh, Laura A, MD Discharge Disposition: Home or Self Care 04/12/2025 3:15 PM EDT Ancillary Procedure [facility] [address] [place] [id number] Joanne Jesus PA-C 04/12/2025 2:58 PM EDT - 04/12/2025 9:05 PM EDT Emergency [facility] Emergency Department [address] [place] [address] Smileye, Johnothan Mack, MD Discharge Disposition: Home or Self Care from Last 3 Months Social History Tobacco Use Types Packs/Day Years Used Date Smoking Tobacco: Never Assessed Education Answer Date Recorded Are you interested in more education? Not on jennyfer e 12/29/2022 Are you concerned about learning? Not on file 12/29/2022 No 12/29/2022 No 12/29/2022 Food Answer Date Recorded Within the past 6 months we worried whether our food would run out before we got money to buy more. Unable to assess 025 Within the past 6 months the food we bought just didn't last and we didn't have enough money to get more. Unable to assess 04/12/2025 Residential Stability Answer Date Recor ded What is your housing situation today? Unable to assess 04/12/2025 How many times have you moved in the past 12 fri ths? Unable to assess 04/12/2025 Paying for Meds Answer Date Recorded Do you have trouble paying for medicines? Unable to assess 04/12/2025 Paying Utility Bills Answer Date Record ed Do you have trouble paying y our heating or electricity bill? Unable to assess 04/12/2025 Transportation Answer Date Recorded Has the lack of transportati on kept you from medical appointments or from getting medications? Unable to assess 04/12/2025 Digital Access Answer Date Recorded No 04/12/2025 No 04/12/2025 Do you have reliable internet access at home? Un able to assess 04/12/2025 Do you have a device (e.g., phone, tablet, computer) with a working camera? Unable to assess 04/12/2025 Intimate Partner Violence Answer Date R ecorded Are you denied basic needs s uch as food, clothing, or medical care? No 04/18/2025 In the past 12 months have y ou been in a relationship with a person who hurts, threatens, or tries to control you? No 04/18/2025 Are you denied basic needs s uch as food, clothing, or medical care? No 04/18/2025 In the past 12 months have y ou been in a relationship with a person who hurts, threatens, or tries to control you? No 04/18/2025 Sex and Gender Information Value Date Recorded Sex Assigned at Not on file Legal Sex Male 6:49 PM EST Gender Identity Not on file Sexual Orientation Not on file Last Filed Vital Signs Vital Sign Reading Time Taken Comments Blood Pressure 140/67 04/18/2025 10:09 PM EDT Pulse 78 04/18/2025 10:09 PM EDT Temperature 36.3 C (97.4 F) 04/18/2025 10:09 PM EDT Respiratory Rate 16 04/18/2025 10:09 PM EDT Oxygen Saturation 100% 04/18/2025 10:09 PM EDT Inhaled Oxygen Concentration - - Weight - - Height 182.9 cm (6') 04/12/2025 2:55 PM EDT Body Mass Index - - Plan of Treatment Health Maintenance Due Date Last Done Comments DEPRESSION SCREENING 1976 SMOKING Hx and SMOKELESS TOBACCO SCREENING 1977 HIV ONE-TIME SCREENING (18-65 YEARS) 1982 COLOGUARD 2009 COLONOSCOPY 2009 FIT TEST 2009 SIGMOIDOSCOPY 2009 VIRTUAL COLONOSCOPY 2009 ZOSTER VACCINES (1 of 2) 2014 COLORECTAL CANCER SCREENING 10/18/2020 FOBT 10/18/2020 10/18/2019 INFLUENZA VACCINE (#1) 2025 , 09/17/2023, 08/12/2022, Additional history exists COVID-19 VACCINE (2024- season) 2025 09/06/2021, 10/25/2020 LIPID PANEL 10/22/2028 10/22/2023, 06/25, 03/09/2022, Additional history exists Adult Td,Tdap Booster 09/17/2033 09/17/2023 RSV VACCINE (1 - 1-dose 75+ series) 12/24/2039 PNEUMOCOCCAL VACCINES (50+ years) Completed 08/12/2022 HEPATITIS C SCREENING Completed 08/07/2023, 021 HEPATITIS A VACCINES Aged Out No long er eligible based on patient's age to complete this topic HIB VACCINES Aged Out No longer eligi ble based on patient's age to complete this topic MENINGOCOCCAL VACCINES (ACWY) Aged Out No longer eligible based on patient's age to complete this topic MENINGOCOCCAL VACCINES (B) Aged Out N o longer eligible based on patient's age to complete this topic Medical Devices Not on file Procedures Procedure Name Priority Date/Time Associated Diagnosis Comments URINALYSIS W/REFLEX URINE CULTURE STAT 04/18/2025 7:01 PM EDT BASIC METABOLIC PANEL STAT 04/18/2025 5:02 PM EDT CBC AND DIFFERENTIAL STAT 04/18/2025 5:02 PM EDT POCT GLUCOSE Routine 04/18/2025 5:01 PM EDT US BEDSIDE Routine 04/18/2025 4:10 PM EDT URINALYSIS W/REFLEX URINE CULTURE STAT 04/12/2025 5:43 PM EDT ECG 12-LEAD Routine 04/12/2025 5:35 PM EDT BASIC METABOLIC PANEL STAT 04/12/2025 4:15 PM EDT CBC AND DIFFERENTIAL STAT 04/12/2025 4:15 PM EDT US BEDSIDE Routine 04/12/2025 3:13 PM EDT from Last 3 Months Results * (ABNORMAL) Urinalysis w/reflex Urine Culture (04/18/2025 7:01 PM EDT) Only the most recent of2 resultswithin the time period is included. Urine Culture Reflex NO [facility] COLOR LT YELLOW(A) Yellow [facility] CLARITY Clear Clear [facility] GLUCOSE Negative Negative [facility] BILI Negative Negative [facility] KETONES Negative Negative [facility] SPECIFIC GRAVITY 1.014 1.003 - 1.035 [facility] BLOOD Negative Negative [facility] PH 5.5 4.5 - 8.0 [facility] Protein-UA Negative Negative [facility] UROBILINOGEN Negative Negative [facility] NITRITE Negative Negative [facility] Leukocyte esterase, ur Negative Negative [facility] Urine (Urine) 04/18/2025 7:0 1 PM EDT 04/18/2025 7:22 PM EDT us Justina Mcnamara PA-C URINE ORDERABLES Final Result [facility] [address] [place] [address] * (ABNORMAL) CBC and differential (04/18/2025 5:02 PM EDT) Only the most recent of2 resultswithin the time period is included. WBC 8.37 4.00 - 11.00 K/uL [facility] RBC 3.75(L) 4.50 - 5.90 M/uL [facility] HGB 10.7(L) 13.5 - 17.5 g/dL [facility] HCT 31.6(L) 41.0 - 53.0 % [facility] PLT 243 150 - 450 K/uL [facility] MCV 84.3 80.0 - 100.0 fL [facility] MCH 28.5 27.0 - 31.0 pg [facility] MCHC 33.9 32.0 - 36.0 g/dL [facility] RDW 13.8 11.5 - 14.5 % [facility] MPV 9.2 8.4 - 12.0 fL [facility] NRBC 0.00 0.00 /100 WBCs [facility] ABSOLUTE NRBC 0.00 0.00 K/uL [facility] DIFF METHOD Auto [facility] NEUTS 62.9 48.0 - 76.0 % [facility] LYMPHS 22.7 18.0 - 41.0 % [facility] MONOS 10.6 4.0 - 11.0 % [facility] EOS 2.5 0.0 - 5.0 % [facility] BASOS 0.7 0.0 - 1.5 % [facility] % IMMATURE GRANS 0.6 0.0 - 0.9 % [facility] ABSOLUTE NEUTS 5.26 1.92 - 7.60 K/uL [facility] Comment:1.21-5.39 cells/KL i s the reference range for individuals with the Aiken null phenotype ABSOLUTE LYMPHS 1.90 0.72 - 4.10 K/uL [facility] ABSOLUTE MONOS 0.89 0.16 - 1.10 K/uL [facility] ABSOLUTE EOS 0.21 0.00 - 0.50 K/uL [facility] ABSOLUTE BASOS 0.06 0.00 - 0.15 K/uL [facility] ABS IMMATURE GRANS 0.05 0.00 - 0.09 K/uL [facility] ABSOLUTE NEUTROPHIL COUNT 5.26 1.92 - 7.60 K/uL [facility] Comment: Automated cell count. Manual ANC may differ if performed. 1.21-5.39 cells/KL is the reference range for individuals with the Aiken null phenotype Blood 04/18/2025 5:02 PM EDT 04/18/2025 5:06 PM EDT us Justina Mcnamara PA-C LAB BLOOD ORDERABLES Final Res ult Performing Organization Address City/State/[facility] Co de Phone Number [facility] [address] [place] [phone] * Basic metabolic panel (04/18/2025 5:02 PM EDT) Only the most recent of2 resultswithin the time period is included. SODIUM 137 136 - 145 mmol/L [facility] POTASSIUM 3.9 3.4 - 5.1 mmol/L [facility] CHLORIDE 100 98 - 107 mmol/L [facility] CO2 25 22 - 31 mmol/L [facility] BUN 15 6 - 23 mg/dL [facility] CREATININE 0.84 0.50 - 1.20 mg/dL [facility] GLUCOSE 80 70 - 100 mg/dL [facility] CALCIUM 8.9 8.8 - 10.7 mg/dL [facility] EGFR 100 >59 mL/min/1.7 3m2 [facility] Comment:Estimated glomerular filtration rate calculated using the CKD-EPI refit equation. ANION GAP 12 7 - 17 mmol/L [facility] Blood 04/18/2025 5:02 PM EDT 04/18/2025 5:06 PM EDT us Justina Mcnamara PA-C LAB BLOOD ORDERABLES Final Res ult [facility] [address] [place] [id number] * POCT Glucose (04/18/2025 5:01 PM EDT) [facility] Glucose, POCT 80 70 - 100 mg/dL [facility] 04/18/2025 5:01 PM EDT 04/18/2025 5:07 PM EDT Dyan Edge MD POINT OF CARE TEST ORDER DHAVAL Final Result Performing Organization Address [facility] Co de Phone Number [facility] [address] [place] [phone] * US BEDSIDE (04/18/2025 4:10 PM EDT) Anatomical Region Laterality Modality Ultrasound Narrative 04/18/2025 4:11 PM EDT Dyan Willett MD 04/22/2025 10:30 AM Bedside Ultrasound Date/Time: 04/18/2025 4:11 PM Performed by: Justina Mcnamara PA-C Authorized by: Justina Mcnamara PA-C Exam Type: Bladder Volume Bladder Volume Exam Findings & Impression: Indications: patient with urinary retention Urine in Bladder: the bladder was visualized and urine was not present Images: Images Saved: Yes Accession Number: [id number] us Justina Mcnamara PA-C IMG POINT OF CARE EXAMS Final Result * ECG 12-LEAD (04/12/2025 5:35 PM EDT) Ventricular Rate EKG/MIN 91 BPM [facility] Atrial Rate 91 BPM [facility] ND Interval 140 ms [facility] QRS Duration 92 ms [facility] QT Interval 386 ms [facility] QTC Interval 474 ms [facility] P [place] 79 degrees [facility] R Wave [place] 13 degrees [facility] T Wave [place] 39 degrees [facility] 04/12/2025 5:35 PM EDT Narrative [facility] - 04/12/2025 10:21 PM EDT Normal sinus rhythm Low voltage QRS, consider pulmonary disease, pericardial effusion, or normal variant Borderline ECG No previous ECGs available Electronically signed by NOT CONFIRMED BY, CARDIOLOGY ([id number]), order editor Juliann Parsons ([id number]) on 04/12/2025 10:21:21 PM Provider Ph[facility] ECG ORDERABLES Final Result [facility] * US BEDSIDE (04/12/2025 3:13 PM EDT) Anatomical Region Laterality Modality Ultrasound Narrative 04/12/2025 3:13 PM EDT Rios Fung MD 04/27/2025 10:22 AM Bedside Ultrasound Date/Time: 04/12/2025 3:13 PM Performed by: Joanne Jesus PA-C Authorized by: Joanne Jesus PA-C Exam Type: Bladder Volume Bladder Volume Exam Findings & Impression: Indications: patient with urinary retention Urine in Bladder: the bladder was visualized and urine was present Bladder Volume (mL): The estimated bladder volume was 440 mL Images: Images Saved: Yes Accession Number: [id number] Joanne Jesus PA-C IMG POINT OF CARE EXAMS Fi nal Result from Last 3 Months Insurance [address] [place] [address] MEDICARE PART [place] [id number] [address] [place] [address] MEDICARE PART A & B ONE CARE MEDICARE REPLACEMENT [address] [place] [address] MEDICARE PART A & B [facility] ONE CARE MEDICARE REPLACEMENT MEDICARE PART A & B ONE CARE MEDICARE REPLACEMENT MEDICARE PART A & B ONE CARE MEDICARE REPLACEMENT [address] [place] [address] MEDICARE PART A & B [facility] ONE CARE MEDICARE REPLACEMENT [address] [place] [phone] MEDICARE PART A & B [facility] ONE CARE MEDICARE REPLACEMENT Care Teams Antique Furniture Repairer Relationship Specialty Start Date End Date Jeannine Dewitt MD [address] [place] [address] PCP - General 04/12/25 Additional Source Comments The information contained in this document represents components of the legal health record. It is not the complete legal health record.[facility]
--- OUTSIDE RECORDS SUMMARY | 2025-06-09 19:53 | XMS_ITS | Patient Health Record ---
Author Organization [facility] Address [address] [place] [address] Care Team Providers Care Medical Lab Tech Instructor Name Role Phone Yancy Alejandre Primary Care Provider Lazara Bentley Unavailable [phone] Allergies Allergen (clinical drug ingredient) Drug/Non Drug Allergy documented on EMR Reaction Allergy Type Onset Date Status Haldol (uncoded) Unknown Allergy Act leta Peanuts (uncoded) Unknown Allergy Ac tive ziprasidone Geodon Unknown Drug Allergy Activ e Wellbutrin Unknown Drug Allergy Active Reason For Referral No Information Medications Medication SIG (Take, Route, Frequency, Duration) Notes Start Date End Date Status Loratadine 10 MG/10ML 10 ml Orally Once a day; Duration: 30 day(s) Active SEROquel 100 MG 1 tablet at bedtime Orally Once a day Active Flonase 50 MCG/DOSE 1 spray in each nost ril Nasally Once a day; Duration: 30 day(s) Active Aspirin 81 MG 1 tablet Orally Once a day Active Pantoprazole Sodium 40 MG 1 tablet Orall y Once a day; Duration: 30 day(s) Active Lipitor 40 MG 1 tablet Orally Once a day Active Isosorbide Mononitrate 30 MG 1/2 tablet in the morning Orally Once a day Active Vitamin D 1000 UNIT 1 tablet Orally Once a day Active Prazosin HCl 2 MG 1 capsule at bedtime Orally Once a day Active Nitrostat 0.4 MG Sublingual Ac tive Symbicort 80-4.5 MCG/ACT 2 puffs Inhalat ion Once a day Active Tylenol 8 Hour 650 MG 1 tablet Orally ev tucker 4 hrs PRN Active lamoTRIgine ER 25 MG 1 tablet Orally; Duration: 30 day(s) Active FLUoxetine HCl 20 MG TAKE ONE CAPSULE BY MOUTH ONCE DAILY IN THE MORNING Orally QD Active Ferrous Sulfate 325 MG as directed Orally tid Active Melatonin 3 MG 1 tablet at bedtime as needed with food Orally Once a day; Duration: 30 day(s) Active Cogentin 0.5 MG 1 tablet at bedtime Orally Once a day; Duration: 30 day(s) Active Tamsulosin HCl 0.4 MG as directed Orally Active Fish Oil 1000 MG 1 capsule Orally Onc e a day Active Metoprolol Succinate ER 25 MG 1 tablet Orally Once a day; Duration: 30 day(s) Active KlonoPIN 1 MG 1 tablet Orally Twic e a day and 0.5tab PRN Active Social History Tobacco Use: Social History Observation Description Date Details (start date - stop date) Current Smoker NA - NA Tobacco Use/Smoking Question Answer Notes Are you a current smoker How often do you smoke cigarettes? every day Alcohol Screen Question Answer Notes Did you have a drink containing alcohol in the p ast year? No Points 0 Interpretation Negative Section Notes: He is . Lives at a residential program. 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 He got his COVID vaccine. Problems Problem Type SNOMED Code ICD Code Onset Dates Problem Status W/U Status Risk Notes Problem Atherosclerotic heart disease of [place] coronary artery without angina pectoris (264798556558897) Atherosclerotic heart disease of [place] coronary artery without angina pectoris (I25.10) Active confirmed 2 Problem Essential hypertension (78323403) Essential (primary) hypertension (I10) Active confirmed Problem Hypertension (95268094) Hypertension (I10) Active confirmed 2 Problem Diabetic education (4485966) Diabetes education, encounter for (E11.9) Active confirmed 2 Problem Coronary artery disease (29878991) CAD (coronary artery disease) (I25.10) Active confirmed Problem Hyperlipidaemia (25475449) Hyperlipidemia, unspecified hyperlipidemia type (E78.5) Active confirmed Problem Atherosclerotic heart disease of [place] coronary artery without angina pectoris (138405438565838) Coronary artery disease involving [place] coronary artery of [place] heart, angina presence unspecified (I25.10) Active confirmed Problem Essential hypertension (52115315) Hypertension, unspecified type (I10) Active confirmed Problem 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, unspecified vessel or lesion type, unspecified whether [place] or transplanted heart (I25.111) Active confirmed Plan Of Treatment Pending Test Test Name Order Date Echocardiogram Hospital 03/05/2018 ECHOCARDIOGRAM 06/09/2017 Future Test Test Name Order Date Creatine Kinase (CK), MB 05/28/2017 ECHOCARDIOGRAM 05/28/2017 AST 05/28/2017 ALT 05/28/2017 Insurance Providers Payer Name Payer Address Payer Phone Subscriber Number Group Number Insured Name Patient Relationship to Insured Coverage Start Date Coverage End Date [facility] [address] [place] [address] [id number] Clifton Brink Self - patient is the insured 2 Medical (General) History Medical History History ICD Code orthostatic hypotension Coronary artery disease, status-post CAB G x4 Knee pain Bipolar disorder Panic disorder PTSD Hypertension syncope hyperlipidemia Surgical History Surgery Date(Month/Year) CABG x4 10/08 Hospitalization History Reason Date(Month/Year) Coronary artery disease, bypass surgery 10/08 back repair after a dog bite (140 stitch es)
--- OUTSIDE RECORDS SUMMARY | 2025-06-09 19:53 | XMS_ITS | Clinical Summary ---
Author Organization [facility] Address [address] [place] [address] Care Team Providers Care Camp Dishwasher Name Role Phone Susana Ashton MD Primary Care Provider Allergies Active Allergy Reactions Criticality Noted Date Comments Food Peanuts & peanut oil (per outside medical records) Ziprasidone Hcl Rash (per outside medical records) Bupropion (per outside medical records) Ziprasidone (per outside medical records) Medications COBAL-1000 1000 MCG/ML IJ SOLNIndications :Vitamin B12 deficiency 100 MCG MONTHLY .9 11 06/04/2007 Active CYANOCOBALAMIN 1000 MCG/ML IJ SOLN 1000mcg inject weekly x4 then once monthly 1 12 06/04/2007 Active RANITIDINE HCL 150 MG OR CAPS 1capusle twice daily 60 11 06/04/2007 Active QUEtiapine Fumarate (SEROQUEL) 400 MG TabIndications: Mood Disorder (F39) 1 TABLET DAILY 30 Tab 4 12/28/2013 Active Aspirin 325 MG Tab 2 TABLETS EVERY 4 TO 6 HOURS NEEDED Active Atorvastatin Calcium 80 MG Tab 1 TABLET DAILY Active Venlafaxine HCl 75 MG CAPSULE SR 24 HRIndications:M ood Disorder (F39) 1 CAPSULE DAILY WITH FOOD 30 Cap 07/24/2014 Active OLANZapine 5 MG TabIndications: Mood Disorder (F39) 1 TABLET DAILY 30 Tab 07/24/2014 Active Prazosin HCl 1 MG Cap 1 CAPSULE PO QHS 30 Cap 07/24/2014 Active Active Problems Problem Noted Date Diagnosed Date Colon adenoma 07/15/2018 Overview (07/15/2018): Noted 2011 - year f/u Schizoaffective disorder, chronic condition 06/27 Overview (07/24/2014): Noted at inpatient hospitalization 2013 Alcohol abuse, in remission 07/24/2014 Overview (07/24/2014): See hospitalization 05/2014 Coronary atherosclerosis of [place] coronary [place] 12/28/2013 Overview (12/30/2014): S/P CABG (coronary artery bypass graft) 12/29/19 14 Cerebral artery occlusion with cerebral infarcti on 12/28/2013 Gastroesophageal reflux disease 12/28/2013 Overview (12/26/2020): Panic disorder with agoraphobia Depressive disorder, not elsewhere classified Overview (07/24/2014): Inpatient hospitalization 2013 Immunizations Immunization Administration Dates Next Due COVID-19, mRNA (Moderna Pre Fall 2022) Monovalent, 100 mcg/0.5 ml or 50 mcg/0.25 ml dose 09/06/2021,10/25/2020 Hep B-CpG (Heplisav) 10/31/2023,09/17/2023 Influenza,injectable,quad,Prsrv Fr 09/17,08/12/2022,08/11/2016,2015 Influenza,recombinant,trival ent,PF(Fl ublok) 05/04/2024 Influenza,seasonal,trivalent ,preserva tive (FLUZONE MDV) 08/16/2015 PCV-20 08/12/2022 Tdap 09/17/2023 influenza,seasonal,trivalent ,PF (Fluzone, Fluarix, Flulaval) 05/27/2019 Family History Medical History Relation Name Comments Depression Brother 2 Heart Disorder Brother 3 heart attack Heart Disorder Father cad Depression Mother Diabetes Mother Heart Disorder Mother cad & NM Other Mother fibromyalgia Depression Other 2 aunt & uncle Alcohol/Drug Neg Hx Relation Name Status Comments Brother 1 Peter Alive Brother 2 Brother 3 Father (Age 63) NM Maternal grandfather Maternal grandmother Maternal uncle (Age 43) suicide Mother Alive Other 1 grandfather @ a n early age of heart attack Other 2 Paternal grandfather Paternal grandmother Alive Son Alive Social History Tobacco Use Types Packs/Day Years Used Date Smoking Tobacco: Every Day Cigarettes 1 20 Comments:trying to quit Alcohol Use Standard Drinks/Week Comments No 0 (1 standard drink = 0.6 oz pur e alcohol) sober since 2001 Intimate Partner Violence Answer Date R ecorded Fear of Current or Ex-Partner Not on file Emotionally Abused Not on file 04/15/2023 Physically Abused Not on file 04/15/2023 Sexually Abused Not on file 04/15/2023 Feel Safe at Home Not on file 04/15/2023 Sex and Gender Information Value Date Recorded Sex Assigned at Not on file Legal Sex Male 11:13 PM EDT Gender Identity Not on file Sexual Orientation Not on file Occupation Industry Job Start Date Job End Date disabled Not on file Not on file Not on file Last Filed Vital Signs Vital Sign Reading Time Taken Comments Blood Pressure 111/77 12/28/2013 1:29 PM EDT Pulse 121 12/28/2013 1:29 PM EDT Temperature 35.9 C (96.7 F) 06/04/2007 12:16 PM EDT Respiratory Rate - - Oxygen Saturation - - Inhaled Oxygen Concentration - - Weight 88.9 kg (196 lb) 12/28/2013 1:29 PM EDT Height - - Body Mass Index - - Plan of Treatment Health Maintenance Due Date Last Done Comments Hepatitis C Screening 1965 CT Lung Screening 2014 09/30/2007 Zoster (Shingrix) (1 of 2) 2014 Colonoscopy 01/20/2017 01/21/2012 (Prev iously completed) RSV (1 - Risk 60-74 years 1-dose series) 2024 COVID-19 Vaccine ( season) 2025 09/06/2021, 10/25/2020 Influenza (#1) 2025 05/04/2024, 08/26, 08/12/2022, Additional history exists DTaP/Tdap/Td (2 - Td or Tdap) 09/17/2033 09/17/2023 EKG Discontinued 12/01/2012 Chest Imaging Discontinued 02/13/2014, 09/26 (Previously completed), 10/16/2013, Additional history exists Pneumococcal 50+ years Completed 08/12/2022 Hep B Completed 10/31/2023, 09/17/2023 HPV Vaccine (No Doses Required) Completed Hep A Aged Out No longer eligi ble based on patient's age to complete this topic Hib Aged Out No longer eligi ble based on patient's age to complete this topic Meningococcal ACWY Aged Out No longer eligible based on patient's age to complete this topic Zoster (Zostavax) Discontinued Goals Goal Patient Goal Type Associated Problems Recent Progress Patient-Stated? Author Quit smoking / using tobacco Lifestyle No Estefani Chavez Procedures * Due to [employer] law, this organization might not be sharing negative HIV tests. Procedure Name Priority Date/Time Associated Diagnosis Comments XRAY CHEST 2 VIEWS PA & LAT 02/13/2014 CARDIOVASCULAR STRESS TEST W/TREADMILL, BICYCLE, AND/OR PHARMACOLOGICAL STRESS; W/ SUPERV/INTERP 12/01/2012 CT - THORAX W/O CONTRAST THEN W/CONTRAST AND MORE SECTIONS 09/30/2007 12:00 AM EST from Last 3 Months or Most Recently Relevant to Health Maintenance Results * Due to [place] state law, this organization might not be sharing negative HIV tests. * XRAY CHEST 2 VIEWS PA & LAT (02/13/2014) 02/13/2014 Narrative Transcriptions [facility], Unknown Provider - 03/01/2014 12:00 AM EDT us Unknown Provider [facility] GENERAL IMAGING- OTHER Fin al Result * CARDIOVASCULAR STRESS TEST W/TREADMILL, BICYCLE, AND/OR PHARMACOLOGICAL STRESS; W/ SUPERV/INTERP (12/01/2012) Narrative Transcriptions Provider, Unknown - 12/08/2013 12:00 AM EDT us Unknown Provider CARDIOVASCULAR-WITH INBSKT RTG Final Result * CT - THORAX W/O CONTRAST THEN W/CONTRAST AND MORE SECTIONS (09/30/2007 12:00 AM EST) Anatomical Region Laterality Modality Other 09/30/2007 Narrative Transcriptions Provider, Unknown - 10/13/2007 12:00 AM EST us Unknown Provider CONTRAST STUDY- OTHER Final Res ult from Last 3 Months or Most Recently Relevant to Health Maintenance [place] [address] [place] [address] - OUT OF NETWORK Care Teams Camp Dishwasher Relationship Specialty Start Date End Date Susana Ashton MD [address] [place] [id number] PCP - General Family Medicine 05/25/22
--- OUTSIDE RECORDS SUMMARY | 2025-06-09 19:53 | XMS_ITS | Encounter Summary ---
Author Organization [facility] Address [address] [place] [address] Care Team Providers Care Bracelet Form Coverer Name Role Phone Gabriel Sykes MD Primary Care Provider Susana Nicholas MD Primary Care Provider Reason for Visit * Reason Comments E-prescribing Refill Request Encounter Details Date Type Department Care Team ([facility] st Contact Info) Description 10/05/2018 Refill [facility] [address] [place] [phone] Juventino Kim MD [address] [address] E-prescribing Refill Request Social History Tobacco Use [...] on filedocumented in this encounter Care Teams Bracelet Form Coverer Relationship Specialty Start Date End Date Gabriel Sykes MD PCP - General Family Medicine 12/03/13 05/24/22 Susana Ashton MD [address] [place] [address] PCP - General Family Medicine 05/25/22 documented as of this encounter
--- OUTSIDE RECORDS SUMMARY | 2025-06-09 19:53 | XMS_ITS | Encounter Summary ---
Author Organization [facility] Address [address] [place] [address] Care Team Providers Care Cow Puncher Name Role Phone Renate Samuels MD, Jeannine Primary Care Provide r Reason for Visit * Reason Onset Date Comments PAC Surgery/procedure Scheduling 07/12/2022 Encounter Details Date Type Department Care Team (Late Contact Info) Description 07/12/2022 Telephone [facility] [address] [place] [phone] Telephone Intake, Staff PAC Surgery/procedure Scheduling Social History Tobacco Use Types Packs/Day Years Used Date Smoking Tobacco: Every Day Cigarettes 0.5 30 Smokeless Tobacco: Never Comments:1-2 cig/day Alcohol Use [...] encounter Miscellaneous Notes * Telephone Encounter - Nancy Knutson - 07/12/2022 11:14 AM EST Patient has referral for hx of polyps last colonoscopy 5 years ago Pls follow up to schedule documented in this encounter Plan of Treatment Upcoming Encounters Date Type Department Care Team (Late Contact Info) Description 11/07/2025 11:30 AM EDT Office Visit [facility] Diabetes [address] [place] [address] Filter Changing Technician: Chao Messina MD [address] [place] [id number] Scheduled Procedures Name Priority Associated Diagnoses Date/Ti [...] Infection Onset Date Last Indicated Resolved Time R/O Respiratory Virus Infection 08/30/2022 08/30/2022 2:53 PM EST R/O Influenza 08/30/2022 08/30/2022 08/30/2022 2:5 3 PM EST COVID-19 - Suspected infection 08/30/2022 08/30/2022 08/30/2022 2:53 PM EST R/O Respiratory Virus Infection 09/14/2022 3 09/14/2022 6:30 AM EST R/O Influenza 09/14/2022 09/14/2022 09/14/2022 6:3 0 AM EST COVID-19 - Suspected infection 09/14/2022 09/14/2022 09/14/2022 6:30 AM EST R/O C.diff 09/16/2022 09/16/2022 09/19/2022 3:54 PM EST R/O Respiratory Virus Infection 10/04/2022 3 10/04/2022 7:13 PM EST R/O Influenza 10/04/2022 10/04/2022 10/04/2022 7:1 3 PM EST COVID-19 - Suspected infection 10/04/2022 10/04/2022 10/04/2022 7:13 PM EST R/O Respiratory Virus Infection 11/16/2022 3 11/16/2022 6:18 PM EDT R/O Influenza 11/16/2022 [...] documented as of this encounter Care Teams Cow Puncher Relationship Specialty Start Date End Date Jeannine Dewitt MD [address] [place] [id number] PCP - General Family Medicine 09/14/24 documented as of this encounter
--- OUTSIDE RECORDS SUMMARY | 2025-06-09 19:53 | XMS_ITS | Encounter Summary ---
Author Organization [facility] Address [address] [place] [address] Care Team Providers Care Fine Unhairer Name Role Phone Gabriel Sykes MD Primary Care Provider Susana Nicholas MD Primary Care Provider [phone] Reason for Visit * Reason Comments E-prescribing Refill Request Encounter Details Date Type Department Care Team ([facility] st Contact Info) Description 06/04/2018 Refill [facility] [address] [place] [phone] Juventino Kim MD [address] [address] E-prescribing Refill Request Social History Tobacco Use [...] on filedocumented in this encounter Care Teams Fine Unhairer Relationship Specialty Start Date End Date Gabriel Sykes MD PCP - General Family Medicine 12/03/13 05/24/22 Susana Ashton MD [address] [place] [address] PCP - General Family Medicine 05/25/22 documented as of this encounter
--- OUTSIDE RECORDS SUMMARY | 2025-06-09 19:53 | XMS_ITS | Encounter Summary ---
Author Organization [facility] Address [address] [place] [address] Care Team Providers Care Social Research Assistant Name Role Phone Gabriel Sykes MD Primary Care Provider Susana Nicholas MD Primary Care Provider Reason for Visit * Reason Comments E-prescribing Refill Request Encounter Details Date Type Department Care Team ([facility] st Contact Info) Description 08/28/2017 Refill [facility] [address] [place] [phone] Juventino Kim MD [address] [address] E-prescribing Refill Request Social History Tobacco Use [...] on filedocumented in this encounter Care Teams Social Research Assistant Relationship Specialty Start Date End Date Gabriel Sykes MD PCP - General Family Medicine 12/03/13 05/24/22 Susana Ashton MD [address] [place] [address] PCP - General Family Medicine 05/25/22 documented as of this encounter
--- OUTSIDE RECORDS SUMMARY | 2025-06-09 19:53 | XMS_ITS | Data Portability ---
Author Organization [facility] [employer], svmg_admin Address [address] [place] [id number] Care Team Providers Care Kiss Mixer Name Role Phone LUIS ANTONIO SOLOMON Primary Care Provider ERASTO PORTILLO JR Progressive Care Unit Registered Nurse Assessment Encounter Date Assessment Date Assessment LastModified by Organization Details LastModified Time 09/10/2023 09/10/2023 Greater than 45 minutes was spent in [id number] discussion with the patient of which greater than 50% of the time was spent discussing his multiple medical comorbidities, review of medical records, reconciliation of medications and the treatment plan to follow including a cardiac catheterization. [email or web address] Not available 09/10/2023 11:26:55 09/23/2023 09/23/2023 He is reporting that he feels depressed. He is on a multidrug regimen and I recommended that he have a follow up soon with his Psychiatry team. [email or web address] Not available 09/23/2023 15:32:46 10/16/2023 10/16/2023 He is reporting that he feels depressed. He has no appetite. Recent adjustment in the Effexor. Exercise encouraged. [email or web address] Not available 10/16/2023 15:54:13 04/15/2024 04/15/2024 He is on a multidrug regimen for his anxiety depression. He has had several inpatient hospitalizations due to mental health issues since the last visit. Not available 04/15/2024 14:51:03 Plan of Treatment Reminders Order Date Submit Date Provider Last Modified By Organization Details Last Modified Time Details Appointments None recorded. Lab CBC 2023 024 [facility], [address] [place], [address], 4 11:09:27 BMP, serum or plasma 2023 024 [facility], [address], [place], [address], 4 11:09:28 PT/PTT, plasma 2023 024 [facility], [address] [place] [address], [address], 4 11:09:30 CK (creatine kinase), total, serum 2023 024 [facility], [address] [place] [address], [place], [address], 4 11:09:32 TSH + free T4, serum 2023 024 [facility], [address] [place] [address], [address], 4 11:09:26 lipid panel w/ direct LDL, serum 2023 024 [facility], [address] [place] [address], [place], [address], 4 11:09:29 AST/SGOT (aspartate aminotransf erase), serum or plasma 2023 024 [facility], [address] [place] [address], [address], 4 11:09:31 ALT (alanine aminotransf erase), serum or plasma 2023 024 [facility], [address] [place] [address], [address], 4 11:09:31 Referral None recorded. Procedures None recorded. Surgeries cardiac catheteriza tion (SURG) 2023 024 [email or web address] 1 Rudy Holman MD, [address] [place] [address], [phone], 07:50:49 Imaging electrocard iogram 2023 024 [email or web address] In-Office Order, Internal Use Only DO Not Attach Compendium DO Not Attach Compendium, Do Not Delete/merge, 4 14:55:23 electrocard iogram 2023 024 [email or web address] In-Office Order, Internal Use Only DO Not Attach Compendium DO Not Attach Compendium, Do Not Delete/merge, 15:53:30 electrocard iogram 2023 024 [email or web address] In-Office Order, Internal Use Only DO Not Attach Compendium DO Not Attach Compendium, Do Not Delete/merge, 4 15:28:47 electrocard iogram 2023 024 [email or web address] In-Office Order, Internal Use Only DO Not Attach Compendium DO Not Attach Compendium, Do Not Delete/merge, 4 11:27:24 electrocard iogram 2023 024 [email or web address] In-Office Order, Internal Use Only DO Not Attach Compendium DO Not Attach Compendium, Do Not Delete/merge, [id number] 4 08:56:37 Medication Orders metoprolol succinate ER 50 mg tablet,exte nded release 24 hr 2023 024 1 [id number], [address] [place], [address], 4 14:18:56 metoprolol succinate ER 50 mg tablet,exte nded release 24 hr 2023 024 [email or web address] 1 [id number], [address] [place], [address], 14:18:56 Patient TargetsNo targets recorded. Patient Instructions Encounter Date Encounter Id Patient Instructions Last Modified By Organization Details Last Modified Time 09/23/2023 [id number] Advance the metoprolol to 75 mg daily. [email or web address] Not available 09/23/2023 15:19:05 10/16/2023 [id number] With advancing the metoprolol to 75 mg daily his HR is improved. [email or web address] Not available 10/16/2023 15:52:36 04/15/2024 [id number] With advancing the metoprolol to 75 mg daily his HR is improved. [email or web address] Not available 03/25/2024 08:54:04 Reason for Referral None Reported. Results Created Date Observation Date Name Description Value Unit Range Abnormal Flag Note LastModifiedBy Organization Detail LastModifiedTime 09/10/19 24 09/11/2023 TSH+F REE T4 TSH 2.070 uIU/m L 0.450- 4.500 Not Available [facility] ([facility]) [address] [place], [address], 09/11/2023 11:09:25 09/10/19 24 09/11/2023 TSH+F REE T4 T4,free(dire ct) 1.39 NG/dL 0.82-1 .77 Not Available [facility] ([facility]) [address] [place], [address], 09/11/2023 11:09:25 09/10/19 24 09/10/2023 CBC, PLATE LET, NO DIFFE RENTI AL WBC 7.2 x10e3 /uL 3.4-10 .8 Not Available [facility] ([facility]) [address] [place], [address], 09/11/2023 11:09:26 09/10/19 24 09/10/2023 CBC, PLATE LET, NO DIFFE RENTI AL RBC 4.94 x10e6 /uL 4.14-5 .80 Not Available [facility] ([facility]) [address] [place], [address], 09/11/2023 11:09:26 09/10/19 24 09/10/2023 CBC, PLATE LET, NO DIFFE RENTI AL hemoglobin 14.3 g/dL 13.0-1 7.7 Not Available [facility] ([facility]) [address] [facility], [place], [address], 09/11/2023 11:09:26 09/10/19 24 09/10/2023 CBC, PLATE LET, NO DIFFE RENTI AL hematocrit 44.2 % 37.5-5 1.0 Not Available [facility] ([facility]) [address] [facility], [place], [address], 09/11/2023 11:09:26 09/10/19 24 09/10/2023 CBC, PLATE LET, NO DIFFE RENTI AL MCV 90 fL 79-97 Not Available [facility] ([facility]) [address] [facility], [place], [address], 09/11/2023 11:09:26 09/10/19 24 09/10/2023 CBC, PLATE LET, NO DIFFE RENTI AL MCH 28.9 pg 26.6-3 3.0 Not Available [facility] ([facility]) [address] [facility], [place], [address], 09/11/2023 11:09:26 09/10/19 24 09/10/2023 CBC, PLATE LET, NO DIFFE RENTI AL MCHC 32.4 g/dL 31.5-3 5.7 Not Available [facility] ([facility]) [address] [facility], [place], [address], 09/11/2023 11:09:26 09/10/19 24 09/10/2023 CBC, PLATE LET, NO DIFFE RENTI AL RDW 13.7 % 11.6-1 5.4 Not Available [facility] ([facility]) [address] [facility], [place], [address], 09/11/2023 11:09:26 09/10/19 24 09/10/2023 CBC, PLATE LET, NO DIFFE RENTI AL platelets 250 x10e3 /uL 150-45 0 Not Available [facility] ([facility]) [address] [facility], [place], [address], 09/11/2023 11:09:26 09/10/19 24 09/10/2023 CBC, PLATE LET, NO DIFFE RENTI AL NRBC SMALL ANIMAL VETERINARIAN Not Available [facility] ([facility]) [address] [facility], [place], [address], 09/11/2023 11:09:26 09/10/19 24 09/10/2023 BASIC METAB OLIC PANEL (8) glucose 97 mg/dL 70-99 Not Available [facility] ([facility]) [address] [facility], [place], [address], 09/11/2023 11:09:28 09/10/19 24 09/10/2023 BASIC METAB OLIC PANEL (8) BUN 8 mg/dL 6-24 Not Available [facility] ([facility]) [address] [place], [address], 09/11/2023 11:09:28 09/10/19 24 09/10/2023 BASIC METAB OLIC PANEL (8) creatinine 0.93 mg/dL 0.76-1 .27 Not Available [facility] ([facility]) [address] [facility], [place], [address], 09/11/2023 11:09:28 09/10/19 24 09/10/2023 BASIC METAB OLIC PANEL (8) eGFR 95 mL/mi n/1.7 3 >59 Not Available [facility] ([facility]) [address] [place], [address], 09/11/2023 11:09:28 09/10/19 24 09/10/2023 BASIC METAB OLIC PANEL (8) BUN/creatini ne ratio 9 9-20 Not Available [facility] ([facility]) [address] [place], [address], 09/11/2023 11:09:28 09/10/19 24 09/10/2023 BASIC METAB OLIC PANEL (8) sodium 136 mmol/ L 134-14 4 Not Available [facility] ([facility] [address] [place], [address], 09/11/2023 11:09:28 09/10/19 24 09/10/2023 BASIC METAB OLIC PANEL (8) potassium 4.1 mmol/ L 3.5-5. 2 Not Available [facility] ([facility]) [address] [place], [address], 09/11/2023 11:09:28 09/10/19 24 09/10/2023 BASIC METAB OLIC PANEL (8) chloride 96 mmol/ L 96-106 Not Available [facility] ([facility]) [address] [place], [address], 09/11/2023 11:09:28 09/10/19 24 09/10/2023 BASIC METAB OLIC PANEL (8) carbon dioxide, total 22 mmol/ L 20-29 Not Available [facility] ([facility]) [address] [place], [address], 09/11/2023 11:09:28 09/10/19 24 09/10/2023 BASIC METAB OLIC PANEL (8) calcium 9.5 mg/dL 8.7-10 .2 Not Available [facility] ([facility]) [address] [place], [address], 09/11/2023 11:09:28 09/10/19 24 09/10/2023 LP+LD L DIREC T cholesterol, total 173 mg/dL 100-19 9 Not Available [facility] ([facility]) [address] [place], [address], 09/11/2023 11:09:29 09/10/19 24 09/10/2023 LP+LD L DIREC T triglyceride s 267 mg/dL 0-149 above high normal Not Available [facility] ([facility]) [address] [place], [address], 09/11/2023 11:09:29 09/10/19 24 09/10/2023 LP+LD L DIREC T HDL cholesterol 32 mg/dL >39 below low normal Not Available [facility] ([facility]) [address] [facility], [place], [address], 09/11/2023 11:09:29 09/10/19 24 09/10/2023 LP+LD L DIREC T VLDL cholesterol laureano 45 mg/dL 5-40 above high normal Not Available [facility] ([facility]) [address] [facility], [place], [address], 09/11/2023 11:09:29 09/10/19 24 09/10/2023 LP+LD L DIREC T LDL chol calc (nih) 96 mg/dL 0-99 Not Available [facility] ([facility]) [address] [place], [address], 09/11/2023 11:09:29 09/10/19 24 09/11/2023 LP+LD L DIREC T comment: SMALL ANIMAL VETERINARIAN Not Available [facility] ([facility]) [address] [facility], [place], [address], 09/11/2023 11:09:29 09/10/19 24 09/11/2023 LP+LD L DIREC T LDL chol. (direct) 106 mg/dL 0-99 above high normal Not Available [facility] ([facility]) [address] [place], [address], 09/11/2023 11:09:29 09/10/19 24 09/10/2023 PT AND PTT INR 1.0 0.9-1. 2 Refer ence inter alex is for non-a ntico agula lady patie nts. Sugge sted INR thera peuti c range for Vitam in K antag onist thera py: Stand poornima Dose (mode rate inten sity thera peuti c range ): 2.0 - 3.0 Highe r inten sity thera peuti c range 2.5 - 3.5 Not Available [facility] ([facility]) [address] [place], [address], 09/11/2023 11:09:30 09/10/19 24 09/10/2023 PT AND PTT prothrombin time 10.8 sec 9.1-12 .0 Not Available [facility] ([facility]) [address] [place], [address], 09/11/2023 11:09:30 09/10/19 24 09/10/2023 PT AND PTT APTT 30 sec 24-33 This test has not been valid ated for [facility] ori unfra ction ated hepar in thera py. aPTT- based thera peuti c range s for unfra ction ated hepar in thera py have not been estab katelin bernabe For gener al guide lines on Hepar in [facility] , refer to the [facility] Direc tory of Desean farris. Not Available [facility] ([facility]) [address] [place], [address], 09/11/2023 11:09:30 09/10/19 24 09/10/2023 AST (SGOT ) AST (SGOT) 46 IU/L 0-40 above high normal Not Available [facility] ([facility]) [address] [place], [address], 09/11/2023 11:09:30 09/10/19 24 09/10/2023 ALT (SGPT ) ALT (SGPT) 71 IU/L 0-44 above high normal Not Available [facility] ([facility]) [address] [place], [address], 09/11/2023 11:09:31 09/10/19 24 09/10/2023 CREAT INE KINAS E,TOT AL creatine kinase,total 327 U/L 41-331 Not Available [facility] ([facility]) [address] [facility], [place], [address], 09/11/2023 11:09:32 09/18/19 24 09/18/2023 GLUCO SE POC glucose POC Accu-Chek 117 mg/dL 70-105 high Not Available [facility] ([facility]) [address] [facility], [place], [address], 09/18/2023 13:23:28 09/02/19 24 elect rocar diogr am No observ ation record ed. [email or web address] In-Office Order Internal Use Only DO Not Attach Compendium DO Not Attach Compendium, Do Not Delete/merge, [id number] 09/03/2023 08:56:37 09/02/19 elect rocar diogr am No observ ation record ed. [email or web address] Not Available 2023 14:15:29 09/03/19 24 09/03/2023 pharm acolo gic nucle ar stres s test Patien t Name: CLIFTON FU 508; 199 Locati on: [facility] [id number] [facility] [address] [place] [address]- Radiol ogy ACCESS ION EXAM DATE/T SILVESTRE PROCED URE ORDERI NG STATUS PROVID ER [id number] 024 NM Myocar dial Nicko SMALL ANIMAL VETERINARIAN, Auth 98 14:01 EST Perf Multi Lindsay (Verif ied) Rest/S tress Reason For Exam (NM Myocar dial Perf Multi Rest/S tress) YANCEY RY ATHERO SCLERO SIS Report EKG Portio n: Height 72 Weight 223 pounds Maximu m predic lady heart rate 162 bpm Target heart rate 137 bpm Baseli ne EKG normal sinus rhythm no ST change s of ischem ia 74 beats per minute s Baseli ne blood pressu re 130/66 99 % on room air Patien t was infuse d for 1 minute 5 second s achiev ing 1 metabo lic equiva lent Peak heart is 108 bpm 66 % maximu m predic lady heart rate Peak blood pressu re 130/76 Test termin ated due to: end of protoc ol EKG respon se: sinus tachyc ardia, no STT change s of ischem ia no arrhyt hmias. Conclu sions 1. Hemody namic and functi onal aerobi c capaci ty not assess ed as Lexisc an myocar dial perfus ion study 2. No sympto ms or EKG change s ischem ia Myocar dial Perfus ion Imagin g with Stress Gated SPECT and Rest SPECT Imagin g Isotop e: Tc-99m Tetrof dieudonne; 27mCi stress and 9mCi rest doses. Proced ure: At rest, Tc-99m Tetrof dieudonne was inject ed intrav enousl y and SPECT imagin g was perfor med. Lexisc an was admini stered intrav enousl y follow ing which the patien t perfor med hand-g rip exerci se during which Tc-99m Tetrof dieudonne was inject ed intrav enousl y. Gated SPECT imagin g was perfor med. Scinti graphi c Findin gs: Images obtain ed follow ing pharma cologi c and physio logic stress demons trate modera tely intens dmitry mild area anteri or and apical fixed perfus ion defect with modera te revers ibilit y. The ejecti on fracti on is 58%. Region al wall motion is normal . The left Admitt ing: UNKNOW N, PHYSIC CESAR Consul ting: Patien t Name: CLIFTON FU 508; 199 Locati on: [facility] [id number] [address] [facility] [address] [place] [address]- Radiol ogy Report ventri cular end-di astoli c volume is 91ml. The transi ent ischem ic dilata tion index is 0.96. The lung heart ratio is 0.30. Impres cata: Anteri or and apical infarc t with lenora-i nfarct ischem ia. Global left ventri cular functi on is normal . Region al wall motion is normal . The left ventri cular end-di astoli c volume is normal . The transi ent ischem ic dilata tion index is normal . The lung heart ratio is normal . Interm ediate risk myocar dial perfus ion scan. Interp reting Cardio logist : Prisca Retana DO, [facility] ____ Fin al Report Dictat ed: 2023 7:50 pm Dictat ed By: PRISCA SKINNER DO Electr onic Signat ure: 2023 7:53 pm Signed By: PRISCA SKINNER DO Admitt ing: UNKNOW N, PHYSIC CESAR Consul ting: [facility] (Radiology) [address] [place] [address], [address], 09/09/2023 09:28:17 09/09/19 24 elect rocar diogr am No observ ation record ed. In-Office Order Internal Use Only DO Not Attach Compendium DO Not Attach Compendium, Do Not Delete/merge, [id number] 09/10/2023 11:18:40 09/10/19 24 elect rocar diogr am No observ ation record ed. 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 [employer] Diagno stic Proced ure Report Report Status : Final Clifton Fu Gender : Male [address] [place] [address] Cath #: [id number] : [birth year] 64 Age at Cath: 57 Date of Proced ure: 024,03 :43 PM Diagno stic Cath Cardio logist : Tony Trevizo MD Assist ing Person nilson: Virgil Bernstein Proced ure Indica tions: Histor y: Diabet es Mellit us: Yes Clinic al Frailt y Scale: 6: Modera tely Frail Curren tly on Dialys is: No Stress Test Perfor med: Yes Stress Test Risk: Interm ediate Heart Failur e: No [employer] Indica tions Worsen ing Angina Diagno stic Indica tions: AUC Indica tion:5 4 , Score: 7 Cardio vascul ar Instab ility: No Persis tent Ischem ic Sympto ms (chest pain, SENIA): No Hemody namic Instab ility (not cardio genic shock) : No Ventri cular arrhyt hmias: No Cardio genic Shock: No Acute Heart Failur e Sympto ms: No Refrac tory Cardio genic Shock: No Chest Pain Sympto m Assess ment: Atypic al angina Pro cedure Data * Diagno stic Proced ure(s) : Proced ure: Site: Angiog josesito, Yancey ry * Intsup rep Coraop agraft roberto-Gr am * Left Heart Cath * Art Access - L Radial Artery * Diagno stic Event Status : Electi ve Total Patien t Modera te Sedati on by MD Time: 36 minute s. Please refere isaiah boucher log for Modera te Sedati on detail s.A Total Fluoro Time: 10.2 minute s Air Kerma: [address]: Medica tion: Dose: Isovue -370, Low (Locm) 80 ml Estima lady Blood Loss: <50 ml Specim en(s) Remove d: None Diagno stic Compli cation s: None Diagno stic Techni que: Under local anesth esia a 6 Colombian introd ucer was placed in the left Radial artery using modifi ed Selgamal pooja techni que. The left yancey ry artery was engage d using a 6 Colombian JL4 cathet er. Angiog gabriel were obtain ed in multip le views. The right yancey ry artery was engage d using a 6 Colombian JR4 cathet er. Angiog gabriel were obtain ed in multip le views. A 6 Colombian JR4 cathet er was placed across the aortic valve into the left ventri isidro. Pressu res were measur ed. Multip le angiog gabriel of the MINA graft were obtain ed using a 6 Colombian ROBERTO cathet er. Multip le angiog gabriel of the SVG to D1 were obtain ed using a 6 Colombian AR2 cathet er. The Radial artery sheath was remove d after the proced ure and hemost asis was achiev ed using the follow ing method /devic e: Merit band. Diagno stic Findin gs: Domina nce: Right Left Main * was modera te in calibe r. * had a 50% distal stenos is. LAD * was modera te in calibe r. * was occlud ed proxim ally. Circum flex * was large in calibe r. * had minor lumina l irregu lariti es. RCA * was a domina nt vessel . * was modera te in calibe r. * had minor lumina l irregu lariti es. Grafts * the MINA graft to the LAD was patent . * the SVG to the D1 was large and patent . Hem odynam ic Data * Ejecti on Method : Radion ucleot roland Ejecti on Fracti on: 58% Baseli ne Pressu res: Site: Syst/A Wave: Diast/ V Wave: Mean/E nd Diast: AO 122 71 91 LV 133 1 8 LV 131 3 9 AO 130 71 91 LV 133 8 Diagno stic Summar y: 57 yo Caucas cesar male with a PMHx signif icant for CAD s/p CABG x 2, DM, HTN and HLD who presen lady with chest pain. Nuclea r stress test was abnorm al. Electi ve cardia c cath via LRA today reveal ed: Patent MINA to LAD. Patent SVG to D1. Proxim ally occlud ed LAD with no signif icant LCX or RCA diseas e noted. Diagno stic Recomm endati on: Medica l therap y is recomm ended. Report By: YAMIL Wan , Last Update By: Virgil Bernstein , 04:48 PM I certif y that this case meets approp riaten ess criter ia. Tony Trevizo MD electr onical ly signed on 8:23:3 3 AM with status of Final [email or web address] [facility] (Radiology) [address] [facility], [place], [address], 10/02/2023 07:50:44 09/23/19 24 elect rodrigue diogr am No observ ation record ed. [email or web address] In-Office Order Internal Use Only DO Not Attach Compendium DO Not Attach Compendium, Do Not Delete/merge, [id number] 09/23/2023 15:01:36 09/23/19 24 elect rocar diogr am No observ ation record ed. [email or web address] Not Available 2023 15:34:53 10/01/19 24 elect rocar diogr am No observ ation record ed. [email or web address] In-Office Order Internal Use Only DO Not Attach Compendium DO Not Attach Compendium, Do Not Delete/merge, [id number] 10/16/2023 15:53:29 10/16/19 24 elect rocar diogr am No observ ation record ed. [email or web address] Not Available 2023 15:55:06 03/25/20 24 elect rocar diogr am No observ ation record ed. In-Office Order Internal Use Only DO Not Attach Compendium DO Not Attach Compendium, Do Not Delete/merge, [id number] 04/15/2024 14:55:22 04/15/20 24 elect rocar diogr am No observ ation record ed. [email or web address] Not Available 2023 14:55:13 Result Notes Documentation Provider Name and Address Organization Details Recorded Time Pharmacologic Nuclear Stress Test : Patient Name: CLIFTON FU ; Location: [facility] [id number] [place] [address]- Radiology ACCESSION EXAM DATE/TIME PROCEDURE ORDERING STATUS PROVIDER [id number] 09/03/2023 NM Myocardial Nicko SMALL ANIMAL VETERINARIAN, Auth 98 14:01 EST Perf Multi Lindsay (Verified) Rest/Stress Reason For Exam (NM Myocardial Perf Multi Rest/Stress) CORONARY ATHEROSCLEROSIS Report EKG Portion: Height 72 Weight 223 pounds Maximum predicted heart rate 162 bpm Target heart rate 137 bpm Baseline EKG normal sinus rhythm no ST changes of ischemia 74 beats per minutes Baseline blood pressure 130/66 99 % on room air Patient was infused for 1 minute 5 seconds achieving 1 metabolic equivalent Peak heart is 108 bpm 66 % maximum predicted heart rate Peak blood pressure 130/76 Test terminated due to: end of protocol EKG response: sinus tachycardia, no STT changes of ischemia no arrhythmias. Conclusions 1. Hemodynamic and functional aerobic capacity not assessed as Lexiscan myocardial perfusion study 2. No symptoms or EKG changes ischemia Myocardial Perfusion Imaging with Stress Gated SPECT and Rest SPECT Imaging Isotope: Tc-99m Tetrofosmin; 27mCi stress and 9mCi rest doses. Procedure: At rest, Tc-99m Tetrofosmin was injected intravenously and SPECT imaging was performed. Lexiscan was administered intravenously following which the patient performed hand-assistant financial accountant exercise during which Tc-99m Tetrofosmin was injected intravenously. Gated SPECT imaging was performed. Scintigraphic Findings: Images obtained following pharmacologic and physiologic stress demonstrate moderately intensely mild area anterior and apical fixed perfusion defect with moderate reversibility. The ejection fraction is 58%. Regional wall motion is normal. The left Admitting: UNKNOWN, PHYSICIAN Consulting: Patient Name: CLIFTON FU ; Location: [facility] [id number] [place] [address]- Radiology Report ventricular end-diastolic volume is 91ml. The transient ischemic dilatation index is 0.96. The lung heart ratio is 0.30. Impression: Anterior and apical infarct with lenora-infarct ischemia. Global left ventricular function is normal. Regional wall motion is normal. The left ventricular end-diastolic volume is normal. The transient ischemic dilatation index is normal. The lung heart ratio is normal. Intermediate risk myocardial perfusion scan. Interpreting Progressive Care Unit Registered Nurse: Barbie Skinner DO, FACC Final Report Dictated: 09/03/2023 7:50 pm Dictated By: BARBIE SKINNER DO Electronic Signature: 09/03/2023 7:53 pm Signed By: BARBIE SKINNER DO Admitting: UNKNOWN, PHYSICIAN Consulting: YUE Ballard [address] [place] [address], [phone], [facility] 09/09/2023 09:28:17 Problems Name Problem SNOMED Code Status Onset Date Resolution Date Notes Provider Name and Address Organization Details Recorded Time Coronary atheroscl erosis [id number] Active 2022 YUE Ballard [address] [place] [address], [phone], [facility] 07:10:05 Hyperlipi demia 43030238 Active 2022 YUE [address] [place], [address], [facility] 3 07:10:12 Orthostat ic hypotensi on 39649712 Active 2022 Lindsay Maharaj [facility] [address] [place], [address], [facility] 3 07:10:21 Tobacco dependenc e syndrome 83865650 Active 2022 Lindsay Maharaj [facility] [address] [place], [address], [facility] 3 07:10:30 Chronic chest pain 978993814903 101 Active 2022 Lindsay Maharaj [facility] [address] [place], [address], [facility] 3 07:10:49 Diabetes mellitus 95730380 Active 2022 education , encounter for 2 Risk Nicolasa holliday, [facility] 3 03:52:06 Hypertens leat disorder 97992970 Active 2022 2 Risk Nicolasa holliday, [facility] 3 03:52:20 Essential hypertens ion 08344263 Active 2022 Basiliamervat holliday, [facility] 3 03:52:25 Atheroscl erosis of coronary artery without angina pectoris 149680263509 103 Active 2022 2 Risk Nicolasa holliday, [facility] 3 03:52:35 Coronary arteriosc lerosis 23362194 Active 2022 involving [place] coronary artery of [place] heart, angina presence unspecifi ed Nicolasa holliday [facility] 3 03:52:56 Disorder of coronary artery 209697300 Active 2022 with angina pectoris with documente d spasm, unspecifi ed vessel or lesion type, unspecifi ed whether [place] or transplan lady heart Nicolasa Castillo [facility] 3 03:53:16 Problem Notes None recorded. Procedures Surgical History Date Name Laterality Status Provider Name and Address Organization Details Recorded Time coronary artery bypass graft completed Nicolasa Castillo [facility] 07/29/2023 03:49:52 cardiac catheterization completed Dorys Nelson [facility] 09/23/2023 14:39:29 Imaging Results None recorded. Procedure Notes None recorded. Medical Equipment None Reported. Allergies Allergen ID Allergen Name Allergen Category Reaction Reaction Severity Criticality Documentation Date Start Date Code Code System Note Provider Name and Address Organization Details Recorded Time 370703 bupropion Not available Not available Not available Not available 07/28/2023 36869 [facility] 3 12:53:47 478393 haloperid ol medicatio n Not available Not available Not available 07/28/2023 5093 [facility] 3 12:53:58 001065 lactose food,medi cation Not available Not available Not available 07/28/2023 6211 [facility] 3 12:54:11 794612 peanut allergeni c extract food,medi cation Not available Not available Not available 07/28/2023 17526 8 [facility] 3 12:54:23 783250 ziprasido ne Not available Not available Not available Not available 07/28/2023 26461 8 [facility] 3 12:54:35 Medications Name Sig Start Date Stop Date Status Note LastModified by Organization Details LastModified Time daily-mena multivitam in tabs active Not Available Not Available Not Available b-12 microlozen ge 500 mcg subl 04/15 completed Not Available Not Available Not Available atorvastat in 40 mg tablet TAKE 1 TABLET BY MOUTH EVERY DAY AT NIGHT active Not Available Not Available No t Available metformin 500 mg tablet Take 1 tablet twice a day by oral route. active Not Available Not Available No t Available Colace 100 mg capsule Take 1 capsule twice a day by oral route. active Not Available Not Available No t Available Protonix 40 mg tablet,del ayed release Take 1 tablet every day by oral route. active Not Available Not Available No t Available Effexor XR 75 mg capsule,ex tended release Take 2 capsules every day by oral route as directed. 09/23 completed Not Available Not Available Not Available aspirin 325 mg tablet Take 2 tablets every 6 hours by oral route as needed. 07/28 completed Not Available Not Available Not Available nicotine (polacrile x) 2 mg gum CHEW 1 GUM (2 MG) BUCCALLY EVERY 2 HOURS NEEDED FOR NICOTINE CRAVINGS 09/23 completed Not Available Not Available Not Available metoprolol succinate ER 50 mg tablet,ext ended release 24 hr TAKE 1.5 TABLET BY MOUTH EVERY DAY DIRECTED 04/15 completed Not Available Not Available Not Available risperidon e 4 mg tablet Take 1 tablet every day by oral route at bedtime. 04/15 completed Not Available Not Available Not Available prazosin 1 mg capsule TAKE 1 CAPSULE BY MOUTH EVERY DAY AT NIGHT 09/23 completed Not Available Not Available Not Available senna 8.6 mg tablet Take 2 tablets every day by oral route as needed. 10/16 completed Not Available Not Available Not Available Effexor XR 37.5 mg capsule,ex tended release Take 1 capsule every day by oral route. 09/02 completed Not Available Not Available Not Available isosorbide mononitrat e ER 30 mg tablet,ext ended release 24 hr Take 0.5 tablets every day by oral route. 07/29 completed Not Available Not Available Not Available clonazepam 0.5 mg tablet TAKE 1 TABLET BY MOUTH IN THE MONRNING AND 2 TABLETS AT NIGHT DIRECTED 04/15 completed Not Available Not Available Not Available risperidon e 0.25 mg tablet TAKE 2 TABLETS BY MOUTH EVERY DAY 10/16 completed Not Available Not Available Not Available hydroxyzin e HCl 50 mg tablet Take 1 tablet every 6 hours by oral route. active Not Available Not Available No t Available melatonin 3 mg tablet TAKE 1 TABLET BY MOUTH AT BEDTIME 04/15 completed Not Available Not Available Not Available ciprofloxa victorino 500 mg tablet TAKE 1 TABLET BY MOUTH 2 TIMES A DAY FOR 5 DAYS 09/23 completed Not Available Not Available Not Available acetaminop hen 650 mg tablet Take 1 tablet every 6 hours by oral route as needed. 04/15 completed Not Available Not Available Not Available acetaminop hen 500 mg tablet Take 2 tablets every 4 hours by oral route as needed. active Not Available Not Available No t Available risperidon e 3 mg tablet Take 1 tablet every day by oral route at bedtime. 09/02 completed Not Available Not Available Not Available lamotrigin e 25 mg tablet Take 1 tablet every day by oral route. 07/29 completed Not Available Not Available Not Available Zyprexa 20 mg tablet Take 1 tablet every day by oral route. active Not Available Not Available No t Available risperidon e 2 mg tablet Take 1 tablet every day by oral route. 04/15 completed Not Available Not Available Not Available tamsulosin 0.4 mg capsule TAKE 1 CAPSULE BY MOUTH EVERY 12 HOURS DIRECTED 04/15 completed Not Available Not Available Not Available trazodone 100 mg tablet Take 1 tablet every day by oral route. active Not Available Not Available No t Available mirtazapin e 30 mg tablet Take 1 tablet every day by oral route. 04/15 completed Not Available Not Available Not Available ferrous sulfate 325 mg (65 mg iron) tablet Take 1 tablet every other day by oral route. 04/15 completed Not Available Not Available Not Available Remeron SolTab 30 mg disintegra ting tablet Place 1 tablet every day by transling ual route at bedtime. 09/02 completed Not Available Not Available Not Available metoprolol tartrate 50 mg tablet 09/23 completed Not Available Not Available Not Available nitroglyce rin 0.[address] 1 TABLET (0.4 MG) BY SUBLINGUA L ROUTE AT 1ST SIGN OF ATTACK; MAY REPEAT EVERY 5 MINUTES UP TO 3 TABS; IF NO RELIEF SEEK MEDICAL HELP active Not Available Not Available No t Available aspirin 81 mg chewable tablet Chew 1 tablet every day by oral route. 09/02 completed Not Available Not Available Not Available Seroquel 100 mg tablet Take 1 tablet every day by oral route at bedtime. 07/29 completed Not Available Not Available Not Available gabapentin 100 mg capsule Take 4 capsules 3 times a day by oral route. 10/16 completed Not Available Not Available Not Available metoprolol succinate ER 25 mg tablet,ext ended release 24 hr Take 1.5 tablets every day by oral route. active Not Available Not Available No t Available mirtazapin e 15 mg disintegra ting tablet TAKE 2 TABLETS BY MOUTH EVERY DAY AT NIGHT 04/15 completed Not Available Not Available Not Available Klonopin 1 mg tablet Take 1 tablet every day by oral route. 07/29 completed Not Available Not Available Not Available fluoxetine 20 mg capsule Take 1 capsule every day by oral route in the morning. 07/29 completed Not Available Not Available Not Available risperidon e 1 mg tablet Take 1 tablet every day by oral route in the morning. 09/02 completed Not Available Not Available Not Available finasterid e 5 mg tablet Take 1 tablet every day by oral route. active Not Available Not Available No t Available loratadine 10 mg tablet Take 1 tablet every day by oral route. 04/15 completed Not Available Not Available Not Available risperidon e 0.5 mg tablet TAKE 1 TABLET BY MOUTH EVERY DAY IN THE MORNING 09/23 completed Not Available Not Available Not Available prazosin 2 mg capsule Take 1 capsule every day by oral route at bedtime. 07/29 completed Not Available Not Available Not Available Depakote 500 mg tablet,del ayed release Take 3 tablets every day by oral route. active total 1,500 daily Not Available Not Available Not Available doxazosin 2 mg tablet Take 1 tablet every day by oral route. active Not Available Not Available No t Available amoxicilli n 875 mg-potassi um clavulanat e 125 mg tablet TAKE 1 TABLET BY MOUTH EVERY 12 HOURS FOR 9 DOSES. 09/23 completed Not Available Not Available Not Available Adult Low Dose Aspirin 81 mg tablet,del ayed release Take 1 tablet every day by oral route. active Not Available Not Available No t Available Strattera 60 mg capsule Take 1 capsule every day by oral route. active Not Available Not Available No t Available risperidon e 2 mg disintegra ting tablet Place 1 tablet every day by transling ual route. 09/23 completed Not Available Not Available Not Available sodium chloride 0.65 % nasal spray aerosol Take by nasal route. 09/23 completed Not Available Not Available Not Available duloxetine 20 mg capsule,de layed release TAKE 2 CAPSULES BY MOUTH EVERY DAY 09/23 completed Not Available Not Available Not Available duloxetine 60 mg capsule,de layed release 10/16 completed Not Available Not Available Not Available eszopiclon e 2 mg tablet Take 1 tablet every day by oral route. active Not Available Not Available No t Available Symbicort 80 mcg-4.5 mcg/actuat ion HFA aerosol inhaler Inhale 2 puffs twice a day by inhalatio n route. 07/29 completed Not Available Not Available Not Available budesonide -formotero l active Not Available Not Available Not Available cholecalci ferol (vitamin D3) 50 mcg (2,000 unit) capsule TAKE 1 CAPSULE BY MOUTH EVERY DAY 09/23 completed Not Available Not Available Not Available Maalox Advanced 200 mg-200 mg-20 mg/5 mL oral suspension Take 30 mL every 4 hours by oral route as needed. 09/23 completed Not Available Not Available Not Available venlafaxin e ER 225 mg tablet,ext ended release 24 hr Take 1 tablet every day by oral route. 04/15 completed Not Available Not Available Not Available venlafaxin e ER 150 mg tablet,ext ended release 24 hr TAKE 1 TABLET BY MOUTH EVERY DAY IN THE MORNING 10/16 completed Not Available Not Available Not Available Invega Sustenna 234 mg/1.5 mL intramuscu lar syringe Inject 1.5 mL every week by intramusc ular route. active Not Available Not Available No t Available loratadine 10 mg capsule Take 10 mg every day by oral route. 09/23 completed Not Available Not Available Not Available OneTouch Verio test strips USE TO CHECK BLOOD SUGAR 3 TIMES A DAY DIRECTED 09/23 completed Not Available Not Available Not Available Breo Ellipta 100 mcg-25 mcg/dose powder for inhalation Inhale 1 puff every day by inhalatio n route. active Not Available Not Available No t Available cyanocobal fisher (vit B-12) 500 mcg disintegra ting tablet,sub lingual PLACE 1 TABLET UNDER THE TONGUE AND ALLOW TO DISSOLVE DAILY 04/15 completed Not Available Not Available Not Available OneTouch Verio Flex Meter USE DIRECTED TO TEST BLOOD SUGAR 5 TIMES DAILY DIRECTED active Not Available Not Available No t Available OneTouch Delica Plus Lancet 33 gauge USE TO CHECK BLOOD SUGAR 3 TIMES DAILY OR DIRECTED active Not Available Not Available No t Available omega-3 300 mg-dha 120 mg-epa 180 mg-fish oil 1,000 mg capsule TAKE 2 CAPSULES BY MOUTH ONCE DAILY 04/15 completed Not Available Not Available Not Available Daily-Mena (with folic acid) 400 mcg tablet TAKE 1 TABLET BY MOUTH EVERY DAY 04/15 completed Not Available Not Available Not Available sertraline 200 mg capsule Take 1 capsule every day by oral route. active Not Available Not Available No t Available Vitals Date Recorded Body height Body mass index (BMI) Body weight Systolic And Diastolic Provider Name and Address Organization Details Last Updated DateTime 09/02/2023 182.88 cm 31.7 kg/m2 496504.82 g 120/79 mm[Hg] Cesia De Leon [facility]. 09/02/2023 13:27:48 Date Recorded Heart rate Provider Name an d Address Organization Details Last Updated DateTime 09/02/2023 97 /min Lino Horn [facility] 09/02/2023 14:09:47 Date Recorded Body height Body mass index (BMI) Body weight Heart rate Systolic And Diastolic Provider Name and Address Organization Details Last Updated DateTime 09/10/2023 182.88 cm 31.7 kg/m2 704143.6 1 g 113 /min 106/72 mm[Hg] [place] De Leon [facility] 09/10/2023 10:42:33 Date Recorded Body height Body mass index (BMI) Body weight Oxygen saturation Oxygen saturation in Arterial blood by Pulse oximetry Heart rate Systolic And Diastolic Provider Name and Address Organization Details Last Updated DateTime 182.88 cm 30.8 kg/m2 945075. 47 g 97 % 97 % 110 /min 112/80 mm[Hg] Dorys Nelson [facility] 14:31:01 Date Recorded Body height Body mass index (BMI) Body weight Heart rate Systolic And Diastolic Provider Name and Address Organization Details Last Updated DateTime 10/16/2023 182.88 cm 29.6 kg/m2 15614.14 g 90 /min 100/68 mm[Hg] Lino Horn [facility] 10/16/2023 15:36:15 Date Recorded Body height Body mass index (BMI) Body weight Heart rate Systolic And Diastolic Provider Name and Address Organization Details Last Updated DateTime 04/15/2024 182.88 cm 33.5 kg/m2 202676.3 2 g 103 /min 107/72 mm[Hg] Cesia De Leon [facility] 04/15/2024 14:02:55 Social History Question Answer Notes LastModified by Organizat ion Details LastModified Time Tobacco Smoking Status Current Some Day Smoker pack a day Dorys holliday [facility] 09/23/2023 14:38:09 Are You Blind Or Do You Have Difficulty Seeing? No [email or web address] Information not available 07/29/2023 What Is Your Level Of Caffeine Consumption? Occasional [email or web address] Information not available 07/29/2023 Are You Deaf Or Do You Have Serious Difficulty Hearing? No [email or web address] Information not available 07/29/2023 What Type Of Diet Are You Following? REGULAR [email or web address] Information not available 07/29/2023 Which Of Your Hands Is Dominant? Right [email or web address] Information not available 07/29/2023 What Was The Date Of Your Most Recent Tobacco Screening? 04/15/2024 [email or web address] Information not available 04/15/2024 Do You Have Any Pets? No [email or web address] Information not available 07/29/2023 What Is Your Relationship Status? [email or web address] Information not available 07/29/2023 Has Tobacco Cessation Counseling Been Provided? No [email or web address] Information not available 07/29/2023 How Many Years Have You Smoked Tobacco? 40 Information not available 10/16/2023 Sex: Unknown Functional Status Question Answer Note LastModified by Organizat ion Details LastModified Time Do you use any illicit or recreational drugs? No Information not available 07/29/2023 Do you or have you ever used any other forms of tobacco or nicotine? Yes Information not available 10/16/2023 What is your level of alcohol consumption? None Information not available 07/29/2023 Are you currently employed? No Information not available 07/29/2023 Are you able to care for yourself independently? No L[facility] [email or web address] Information not available 09/23/2023 What is your exercise level? None [email or web address] Information not available 07/29/2023 Mental Status Question Answer Note LastModified by Organization D etails LastModified Time Do you feel stressed (tense, restless, nervous, or anxious, or unable to sleep at night)? [id number] [email or web address] Information not available 09/23/2023 Family History Relationship Description Onset Age of this Age Resolved Age Notes LastModified by Organization Details LastModified Time Father Family member 62 yrs, Father had a CABG, diagno sed with CAD [email or web address] Not available 07/29/2023 03:49:21 Father Coronary arterioscler osis [email or web address] Not available 2023 15:32:14 Father Heart disease [email or web address] Not available 2023 15:32:59 Mother Alive 77 yrs, diagno sed with Diabet es, CAD [email or web address] Not available 07/29/2023 03:49:35 Mother Coronary arterioscler osis [email or web address] Not available 2023 15:32:14 Mother Diabetes mellitus [email or web address] Not available 2023 15:32:19 Mother Heart disease [email or web address] Not available 2023 15:32:59 Medical History Condition Response High Blood Pressure (Hypertension) Y Depression Y High Cholesterol (Hyperlipidemia) Y Heart Disease/Valve Disease Y Syncope or Passing Out Y CAD (Coronary Artery Disease) Y Past Encounters Encounter ID Performer Location Encounter Start Date Encounter Closed Date Diagnosis/Indication Diagnosis SNOMED-CT Code Diagnosis ICD10 Code Diagnosis IMO Codes Diagnosis Note [id number] Power Dominique MD [facility] [address] [place] [address] 07/29/2023 08:29:19 07/29/2023 09:31:41 Coronary atherosclerosis 822778387 I25.10 He is reporting intermitte nt chest discomfort and shortness of breath. He does have known coronary disease and is status post a CABG from 2023. His last nuclear medicine stress test was in 2019 which did show areas of infarct but no ischemia. Given the fact that he will likely need cardiac clearance for possible TURP, I will have him go forth with a repeat pharmacolo gic stress test. He was instructed to avoid all caffeine and decaffeina lady beverages for 24 hours prior to the testing. Hyperlipidemia 34135688 E78.5 He remains on atorvastat in 40 mg daily. He would benefit from a repeat lipid panel, LFTs and CPK. Orthostati c hypotension 79068373 I95.1 Does not appear to be an issue at this time. He is currently not on any antihypert ensive medication s or diuretics. Tobacco de pendence syndrome 62589251 F17.200 He quit smoking a year ago. Diabetes mellitus 647712 09 E11.9 He is currently on metformin 500 mg twice daily. [id number] Erasto Portillo MD [facility] [address] [place] [address] 09/02/2023 13:14:39 09/02/2023 14:18:48 Coronary atherosclerosis 337482318 I25.10 He continues to report intermitte nt chest discomfort and shortness of breath status post two hospital ER visits for chest pain and negative workup. He is scheduled for a pharmacolo gic stress test that I ordered at the last visit at [facility] tomorrow. He was instructed to avoid all caffeine and decaffeina lady beverages, chocolate etc. He does have known coronary disease and is status post a CABG from 2013. His last nuclear medicine stress test was in 2018 which did show areas of infarct but no ischemia. He will need cardiac clearance for possible TURP and will provide clearance once the testing is complete. He is followed by Dr. Willoughby. In the interim, I will advance the metoprolol succinate to 50 mg daily. He runs high HR's and this will offer antiangina l benefit. Hyperlipidemia 28621065 E78.5 He remains on atorvastat in 40 mg daily. He would benefit from a repeat lipid panel, LFTs and CPK. Orthostati c hypotension 52181045 I95.1 Does not appear to be an issue at this time. Tobacco de pendence syndrome 74022223 F17.200 He quit smoking a year ago. Diabetes mellitus 934538 E11.9 He is currently on metformin 500 mg twice daily. [id number] MD VITALY [facility] [address] [place] [address] 09/10/2023 10:14:00 09/10/2023 11:27:24 Coronary atherosclerosis 651915427 I25.10 I was in receipt of a nuclear medicine stress test that was positive for ischemia. At this point given his known history of CABG in 2013 and several ER admissions for chest discomfort and shortness of breath we will send him for a cardiac catheteriz ation at [facility]. He also needs cardiac clearance for a future TURP. He understand s that if his stent is placed this will need to be deferred. He is agreeable. He will likely need to hold the metformin prior to cardiac catheteriz ation. In review of his medical records his list did not contain aspirin today. However this was noted on his PCP follow-up notes and recent hospital admission. He is to be on aspirin 81 mg daily. He also presented without a medication list. His home care worker was present and I did explain that he needs to present an updated med list at each visit. She will fax over the list today. I will update labs prior to his procedure. Hyperlipidemia 69932942 E78.5 He remains on atorvastat in 40 mg daily. I did not note a recent lipid panel. I will obtain that today. He runs tachycardi a. I will also obtain a TSH. Orthostati c hypotension 15223772 I95.1 Does not appear to be an issue at this time. At the last visit I did advance his metoprolol to 50 mg a day. He will clarify if the dose was increased. Tobacco de pendence syndrome 67965259 F17.200 He quit smoking a year ago. Diabetes mellitus 984419 E11.9 He is currently on metformin 500 mg twice daily. [id number] Erasto Portillo MD [facility] [address] [place] [address] 09/23/2023 14:21:56 09/23/2023 15:28:47 Coronary atherosclerosis 666800932 I25.10 Cardiac Catheteriz ation showed no stenoses that required stenting. Medical management recommende d. At the last visit, I did recommend advancing the metoprolol to 50 mg daily. I did recommend that we advance the metoprolol succinate to 75 mg daily. He is reporting palpitatio ns. EKG shows sinus tachycardi a. I recommende d that he stay well hydrated. Hyperlipidemia 25201420 E78.5 He remains on atorvastat in 40 mg daily. He would benefit from a repeat lipid panel, LFTs and CPK. Orthostati c hypotension 86288678 I95.1 Does not appear to be an issue at this time. Tobacco de pendence syndrome 62765809 F17.200 He is currently smoking 1ppd. Highly advised to stop tobacco use. Diabetes mellitus 330037 E11.9 He is currently on metformin 500 mg twice daily. [id number] MD BLANKA [facility] [address] [place] [address] 10/16/2023 14:50:05 10/16/2023 15:53:15 Coronary atherosclerosis 865833510 I25.10 Cardiac Catheteriz ation showed no stenoses that required stenting. Medical management recommende d. At the last visit, I did recommend advancing the metoprolol to 75 mg daily. He was reporting palpitatio ns and this has resolved. HR improved. No anginal symptoms reported at this time. Hyperlipidemia 85186466 E78.5 He remains on atorvastat in 40 mg daily. He would benefit from a repeat lipid panel, LFTs and CPK. Orthostati c hypotension 45039456 I95.1 Does not appear to be an issue at this time. Tobacco de pendence syndrome 66455912 F17.200 He is currently smoking 1ppd. Highly advised to stop tobacco use. Diabetes mellitus 191668 E11.9 He is currently on metformin 500 mg twice daily. [id number] MD BLANKA [facility] [address] [place] [address] 04/15/2024 13:33:01 04/15/2024 14:51:02 Coronary atherosclerosis [id number] I25.10 Cardiac Catheteriz ation showed no stenose's that required stenting. Medical management recommende d. He remains on aspirin and atorvastat in. Hyperlipidemia 83020523 E78.5 He remains on atorvastat in 40 mg daily. He has a lab slip for next week ordered by the PCP. I did recommend a repeat lipid panel, LFT's and CPK. Orthostati c hypotension [id number] I95.1 Does not appear to be an issue at this time. Tobacco de pendence syndrome [id number] F17.200 He is currently smoking 1ppd. Highly advised to stop tobacco use. Diabetes mellitus [id number] E11.9 He is currently on metformin 500 mg twice daily. Health Concerns Section Related Observation LastModified by Organization Detai ls LastModified Time None Recorded Concern Status LastModified by Organization Details LastModified Time None Recorded Advance Directives Directive None Recorded Payers Insurance Date Sequence Insurance Name Policy Number Policy Morris Covered Member ID Morris Member ID Guarantor Name 10/18/2024 1 [facility]LY [facility] (MEDICARE - MEDICAID REPLACEMENT) [id number] Clifton Leigh Keena [id number] Clifton Fu 05/22/2011 1 *SELF PAY* Spencer Fu 04/19/2024 1 [place]: [employer] Clifton Leigh Keena [id number] Clifton Fu 04/19/2024 [facility] Clifton Fu [id number] Clifton Fu 04/22/2024 3 [place] [facility] Clifton Fu [id number] Clifton Fu 04/22/2024 1 [place]: [employer] Clifton Leigh Keena [id number] Clifton Fu 04/22/2024 2 [facility] [id number] Clifton Leigh Keena [id number] Clifton Fu 04/19/2024 2 [facility] [id number] Clifton Leigh Keena [id number] Clifton Fu Notes Date Note Type Note Provider Name and Address Organization Details Recorded Time 4 text/html Clifton Fu is a 57 year old male with a history of hypercholesterolemia, prior tobacco use, coronary artery disease status post two-vessel bypass 2014 at [facility], chronic chest pain syndrome, intermittent syncope, orthostatic hypotension, tobacco dependence, bipolar disorder/depression/schizop hrenia. An echocardiogram was performed on June 09, 2017. LV systolic function normal EF 55-60%. Basal inferior and basal inferoseptal hypokinesis. Diastolic filling pattern indicates impaired relaxation. Left atrium mildly dilated. No significant valvular abnormality. He was admitted to [facility] ER on June 15, 2017 with acute onset of chest pain while at rest. The episode radiated to his neck bilaterally. He was admitted and ruled out by cardiac enzymes. It was felt that his discomfort was likely musculoskeletal,especially in the setting of a recent nuclear stress test from May 15, 2017 which showed no evidence of active ischemia. EKG was negative for ischemic changes. Nuclear stress test 01/22/19 that showed no clear evidence of myocardial ischemia and a small area of myocardial infarct in the apical anterior wall of the LV in the distribution of the LAD. Prior nuclear stress test from November 2017 showed a small area of apical anterior wall infarct with no ischemia. EF 58%. Event monitor 02/26/19 10/29/2018: There were no arrhythmias detected. He was last seen at [facility] on 11/16/2020 (PW). Blood pressure 129/81. Weight 250 pounds. Blood work 02/08/19: Sodium 140, potassium 3.6, admission K 2.8, BUN 6, creatinine 1.20, GFR 68, magnesium 2.5, white count 6.9, hemoglobin 13, hematocrit 37 8, platelets 277.Blood work June 15, 2017: Sodium 136, potassium 3.6, BUN 14, creatinine 1.1, white count 8.5, hemoglobin 13 6, hematocrit 39 6, cardiac troponin less than 0.015.Blood work May 14, 2017: White count 8.3, hemoglobin 14.4, hematocrit 41.5, platelets 250, sodium 135, potassium 3.6, BUN 9, creatinine 1.15, total cholesterol 149, triglycerides 239, HDL 24, LDL 77. He presented to the emergency room on 07/27/2023 with reports of chest pain, shortness of breath, weakness and a sense of incomplete bladder emptying. He has had a chronic Solomon catheter in place due to urinary retention. He remains at the facility. Cardiac troponin negative at 0.007. Chest x-ray negative. EKG with no acute findings. Blood work sodium 137, potassium 3.2, BUN 11, creatinine 1, GFR 87, blood sugar 221, white count 9.2, hemoglobin 12.7, hematocrit 35 6, platelets 188. At the last visit, he reported that he lives in a [facility] however he is now at [facility]. He has had a solomon catheter for the past month. He reports that he has had on and off left sided chest pain and SOB for the past 6 months. He reports that the chest pain happens with any activity . He does not smoke tobacco and quit a year ago. He reports that he will likely need a TURP. He is followed by Dr. Willoughby. Today, he reports that he is still at the Rehab and will go to the snf on . He presented to the emergency room on 08/21/23 and most recently on 09/01/2023 with chest pain and shortness of breath non responsive to nitroglycerin. He described left sided chest pain that occurs randomly and not necessarily with exertion. Troponin negative at 0.005. CXR negative. Labs showed a White count 9.6, hemoglobin 13.2, hematocrit 37 8, sodium 136, potassium 3.7, BUN 9, creatinine 0.9, GFR greater than 90, blood sugar 116, AST 30, ALT 55. He was accompanied by an MA. No further reports of chest pain or SOB. We called the facility and he will go to [facility] tomorrow for a pharmacologic stress test. Power Dominique MD [address] [place] [address], [phone], [facility] - [facility] Physician Services [facility]. 09/09/2023 11:20:27 4 text/html Clifton Fu is a 57 year old male with a history of hypercholesterolemia, prior tobacco use, coronary artery disease status post two-vessel bypass 2014 at [facility], chronic chest pain syndrome, intermittent syncope, orthostatic hypotension, tobacco dependence, bipolar disorder/depression/schizop hrenia. An echocardiogram was performed on June 09, 2017. LV systolic function normal EF 55-60%. Basal inferior and basal inferoseptal hypokinesis. Diastolic filling pattern indicates impaired relaxation. Left atrium mildly dilated. No significant valvular abnormality. He was admitted to [facility] ER on June 15, 2017 with acute onset of chest pain while at rest. The episode radiated to his neck bilaterally. He was admitted and ruled out by cardiac enzymes. It was felt that his discomfort was likely musculoskeletal,especially in the setting of a recent nuclear stress test from May 15, 2017 which showed no evidence of active ischemia. EKG was negative for ischemic changes. Nuclear stress test 01/22/19 that showed no clear evidence of myocardial ischemia and a small area of myocardial infarct in the apical anterior wall of the LV in the distribution of the LAD. Prior nuclear stress test from November 2017 showed a small area of apical anterior wall infarct with no ischemia. EF 58%. Event monitor 02/26/19 10/29/2018: There were no arrhythmias detected. He was last seen at [facility] on 11/16/2020 (). Blood pressure 129/81. Weight 250 pounds. Blood work 02/08/19: Sodium 140, potassium 3.6, admission K 2.8, BUN 6, creatinine 1.20, GFR 68, magnesium 2.5, white count 6.9, hemoglobin 13, hematocrit 37 8, platelets 277.Blood work June 15, 2017: Sodium 136, potassium 3.6, BUN 14, creatinine 1.1, white count 8.5, hemoglobin 13 6, hematocrit 39 6, cardiac troponin less than 0.015.Blood work May 14, 2017: White count 8.3, hemoglobin 14.4, hematocrit 41.5, platelets 250, sodium 135, potassium 3.6, BUN 9, creatinine 1.15, total cholesterol 149, triglycerides 239, HDL 24, LDL 77. He presented to the emergency room on 07/27/2023 with reports of chest pain, shortness of breath, weakness and a sense of incomplete bladder emptying. He has had a chronic Solomon catheter in place due to urinary retention. Cardiac troponin negative at 0.007. Chest x-ray negative. EKG with no acute findings. Blood work sodium 137, potassium 3.2, BUN 11, creatinine 1, GFR 87. At the last visit, he reported that he lives in a [facility] however he is now at [facility]. He has had a solomon catheter for the past month. He reports that he has had on and off left sided chest pain and SOB for the past 6 months. He reports that the chest pain happens with any activity . He does not smoke tobacco and quit a year ago. He reports that he will likely need a TURP. He is followed by Dr. Willoughby. Today, he reports that he is still at the Rehab and will go to the snf on . He presented to the emergency room on 08/21/23 and most recently on 09/01/2023 with chest pain and shortness of breath non responsive to nitroglycerin. He described left sided chest pain that occurs randomly and not necessarily with exertion. Troponin negative at 0.005. CXR negative. Labs showed a White count 9.6, hemoglobin 13.2, hematocrit 37 8, sodium 136, potassium 3.7, BUN 9, creatinine 0.9, GFR greater than 90, blood sugar 116, AST 30, ALT 55. He was accompanied by an MA. No further reports of chest pain or SOB. We called the facility and he will go to [facility] tomorrow for a pharmacologic stress test. Nuclear medicine stress test 09/03/2023: Anterior and apical infarct with lenora-infarct ischemia. Global left ventricular systolic function is normal at 58%. Regional wall motion is normal. The left ventricular end-diastolic volume is normal. The transient ischemic dilatation index is normal. Intermediate risk myocardial perfusion scan. Lindsay Maharaj, [facility], [phone], [facility] - [facility]. 09/10/2023 18:06:03 4 text/html Clifton Fu is a 57 year old male with a history of hypercholesterolemia, prior tobacco use, coronary artery disease status post two-vessel bypass 2014 at [facility], chronic chest pain syndrome, intermittent syncope, orthostatic hypotension, tobacco dependence, bipolar disorder/depression/schizop hrenia. An echocardiogram was performed on June 09, 2017. LV systolic function normal EF 55-60%. Basal inferior and basal inferoseptal hypokinesis. Diastolic filling pattern indicates impaired relaxation. Left atrium mildly dilated. No significant valvular abnormality. He was admitted to [facility] ER on June 15, 2017 with acute onset of chest pain while at rest. The episode radiated to his neck bilaterally. He was admitted and ruled out by cardiac enzymes. It was felt that his discomfort was likely musculoskeletal,especially in the setting of a recent nuclear stress test from May 15, 2017 which showed no evidence of active ischemia. EKG was negative for ischemic changes. Nuclear stress test 01/22/19 that showed no clear evidence of myocardial ischemia and a small area of myocardial infarct in the apical anterior wall of the LV in the distribution of the LAD. Prior nuclear stress test from November 2017 showed a small area of apical anterior wall infarct with no ischemia. EF 58%. Event monitor 02/26/19 10/29/2018: There were no arrhythmias detected. He was last seen at [facility] on 11/16/2020 (). Blood pressure 129/81. Weight 250 pounds. Blood work 02/08/19: Sodium 140, potassium 3.6, admission K 2.8, BUN 6, creatinine 1.20, GFR 68, magnesium 2.5, white count 6.9, hemoglobin 13, hematocrit 37 8, platelets 277.Blood work June 15, 2017: Sodium 136, potassium 3.6, BUN 14, creatinine 1.1, white count 8.5, hemoglobin 13 6, hematocrit 39 6, cardiac troponin less than 0.015.Blood work May 14, 2017: White count 8.3, hemoglobin 14.4, hematocrit 41.5, platelets 250, sodium 135, potassium 3.6, BUN 9, creatinine 1.15, total cholesterol 149, triglycerides 239, HDL 24, LDL 77. He presented to the emergency room on 07/27/2023 with reports of chest pain, shortness of breath, weakness and a sense of incomplete bladder emptying. He has had a chronic Solomon catheter in place due to urinary retention. He remains at the facility. Cardiac troponin negative at 0.007. Chest x-ray negative. EKG with no acute findings. Blood work sodium 137, potassium 3.2, BUN 11, creatinine 1, GFR 87, blood sugar 221, white count 9.2, hemoglobin 12.7, hematocrit 35 6, platelets 188. At the last visit, he reported that he lives in a [facility] however he is now at [facility]. He has had a solomon catheter for the past month. He reports that he has had on and off left sided chest pain and SOB for the past 6 months. He reports that the chest pain happens with any activity . He does not smoke tobacco and quit a year ago. He reports that he will likely need a TURP. He is followed by Dr. Willoughby. He presented to the emergency room on 08/21/23 and most recently on 09/01/2023 with chest pain and shortness of breath non responsive to nitroglycerin. He described left sided chest pain that occurs randomly and not necessarily with exertion. Troponin negative at 0.005. CXR negative. Labs showed a White count 9.6, hemoglobin 13.2, hematocrit 37 8, sodium 136, potassium 3.7, BUN 9, creatinine 0.9, GFR greater than 90, blood sugar 116, AST 30, ALT 55. He was accompanied by an MA. No further reports of chest pain or SOB. Nuclear medicine stress test performed 09/03/2023: Anterior and apical infarct with lenora-infarct ischemia. Global left ventricular function is normal. EF 58%. The transient ischemic dilatation index is normal. Intermediate risk myocardial perfusion scan. Date of Procedure: 09/18/2023,03:43 PMDiagnostic Cath Progressive Care Unit Registered Nurse: Tony Trevizo MDProcedure Indications:Diagnostic Procedure(s):Procedure:Jade ogram, Coronary *Intsuprep Coraopagraftima-Gram *Left Heart Cath *Art Access - L Radial Artery *Diagnostic Event Status: ElectiveA 6 Colombian JR4 catheter was placed across the aortic valve into the leftventricle. Pressures were measured.Multiple angiograms of the MINA graft were obtained using a 6 Colombian IMAcatheter.Multiple angiograms of the SVG to D1 were obtained using a 6 Colombian [id number].The Radial artery sheath was removed after the procedure and hemostasis wasachieved using the following method/device: Merit band.Diagnostic Findings:Dominance: RightLeft Main* was moderate in caliber.* had a 50% distal stenosis.LAD* was moderate in caliber.* was occluded proximally.Circumflex* was large in caliber.* had minor luminal irregularities.RCA* was a dominant vessel.* was moderate in caliber.* had minor luminal irregularities.Grafts* the MINA graft to the LAD was patent.* the SVG to the D1 was large and patent.Hemodynamic DataEjection Method: RadionucleotideEjection Fraction: 58%BaselinePressures:Site: Syst/A Wave: Diast/V Wave: Mean/End Diast:AO 122 71 91LV 133 1 8LV 131 3 9AO 130 71 91LV 133 8 Nuclear stress test was abnormal. Elective cardiac cath via LRA today revealed:Patent MINA to LAD.Patent SVG to D1.Proximally occluded LAD with no significant LCX or RCA disease noted.Diagnostic Recommendation:Medical therapy is recommended. Today, he was accompanied by an media center assistant. He is back at his snf. He underwent the cardiac catheterization at [facility]. No stenting required. MINA and SVG to D1 patient. No significant RCA or LCX disease. Medical management recommended. He denies chest pain at this time but reports that he is having difficulty with sleep and depression. He is currently smoking. He is not sleeping well. No discomfort from the catheterization site. Power Dominique MD [address] [place] [address], [phone], [facility] Physician [facility]. 09/24/2023 07:06:47 4 text/html Clifton Fu is a 57 year old male with a history of hypercholesterolemia, prior tobacco use, coronary artery disease status post two-vessel bypass 2014 at [facility], chronic chest pain syndrome, intermittent syncope, orthostatic hypotension, tobacco dependence, bipolar disorder/depression/schizop hrenia. An echocardiogram was performed on June 09, 2017. LV systolic function normal EF 55-60%. Basal inferior and basal inferoseptal hypokinesis. Diastolic filling pattern indicates impaired relaxation. Left atrium mildly dilated. No significant valvular abnormality. He was admitted to [facility] ER on June 15, 2017 with acute onset of chest pain while at rest. The episode radiated to his neck bilaterally. He was admitted and ruled out by cardiac enzymes. It was felt that his discomfort was likely musculoskeletal,especially in the setting of a recent nuclear stress test from May 15, 2017 which showed no evidence of active ischemia. EKG was negative for ischemic changes. Nuclear stress test 01/22/19 that showed no clear evidence of myocardial ischemia and a small area of myocardial infarct in the apical anterior wall of the LV in the distribution of the LAD. Prior nuclear stress test from November 2017 showed a small area of apical anterior wall infarct with no ischemia. EF 58%. Event monitor 02/26/19 10/29/2018: There were no arrhythmias detected. He was last seen at [facility] on 11/16/2020 (). Blood pressure 129/81. Weight 250 pounds. Blood work 02/08/19: Sodium 140, potassium 3.6, admission K 2.8, BUN 6, creatinine 1.20, GFR 68, magnesium 2.5, white count 6.9, hemoglobin 13, hematocrit 37 8, platelets 277.Blood work June 15, 2017: Sodium 136, potassium 3.6, BUN 14, creatinine 1.1, white count 8.5, hemoglobin 13 6, hematocrit 39 6, cardiac troponin less than 0.015.Blood work May 14, 2017: White count 8.3, hemoglobin 14.4, hematocrit 41.5, platelets 250, sodium 135, potassium 3.6, BUN 9, creatinine 1.15, total cholesterol 149, triglycerides 239, HDL 24, LDL 77. He presented to the emergency room on 07/27/2023 with reports of chest pain, shortness of breath, weakness and a sense of incomplete bladder emptying. He has had a chronic Solomon catheter in place due to urinary retention. He remains at the facility. Cardiac troponin negative at 0.007. Chest x-ray negative. EKG with no acute findings. Blood work sodium 137, potassium 3.2, BUN 11, creatinine 1, GFR 87, blood sugar 221, white count 9.2, hemoglobin 12.7, hematocrit 35 6, platelets 188. At the last visit, he reported that he lives in a [facility] however he is now at [facility]. He has had a solomon catheter for the past month. He reports that he has had on and off left sided chest pain and SOB for the past 6 months. He reports that the chest pain happens with any activity . He does not smoke tobacco and quit a year ago. He reports that he will likely need a TURP. He is followed by Dr. Willoughby. He presented to the emergency room on 08/21/23 and most recently on 09/01/2023 with chest pain and shortness of breath non responsive to nitroglycerin. He described left sided chest pain that occurs randomly and not necessarily with exertion. Troponin negative at 0.005. CXR negative. Labs showed a White count 9.6, hemoglobin 13.2, hematocrit 37 8, sodium 136, potassium 3.7, BUN 9, creatinine 0.9, GFR greater than 90, blood sugar 116, AST 30, ALT 55. He was accompanied by an MA. No further reports of chest pain or SOB. Nuclear medicine stress test performed 09/03/2023: Anterior and apical infarct with lenora-infarct ischemia. Global left ventricular function is normal. EF 58%. The transient ischemic dilatation index is normal. Intermediate risk myocardial perfusion scan. Date of Procedure: 09/18/2023,03:43 PMDiagnostic Cath Progressive Care Unit Registered Nurse: Tony Trevizo MDProcedure Indications:Diagnostic Procedure(s):Procedure:Jade ogram, Coronary *Intsuprep Coraopagraftima-Gram *Left Heart Cath *Art Access - L Radial Artery *Diagnostic Event Status: ElectiveDiagnostic Findings:Dominance: RightLeft Main* was moderate in caliber.* had a 50% distal stenosis.LAD* was moderate in caliber.* was occluded proximally.Circumflex* was large in caliber.* had minor luminal irregularities.RCA* was a dominant vessel.* was moderate in caliber.* had minor luminal irregularities.Grafts* the MINA graft to the LAD was patent.* the SVG to the D1 was large and patent.Hemodynamic DataEjection Method: RadionucleotideEjection Fraction: 58%Pressures:Site: Syst/A Wave: Diast/V Wave: Mean/End Diast:AO 122 71 91LV 133 1 8LV 131 3 9AO 130 71 91LV 133 8 Nuclear stress test was abnormal. Elective cardiac cath via LRA today revealed:Patent MINA to LAD.Patent SVG to D1.Proximally occluded LAD with no significant LCX or RCA disease noted.Diagnostic Recommendation:Medical therapy is recommended.He underwent the cardiac catheterization at [facility]. No stenting required. MINA and SVG to D1 patient. No significant RCA or LCX disease. Medical management recommended. He denies chest pain at this time but reports that he is having difficulty with sleep and depression. He is currently smoking. He has lost weight due to decreased appetite. Recent adjustment in the Effexor. Lindsay Maharaj, [facility], [phone], [facility] Physician Services [facility]. 10/16/2023 15:57:15 4 text/html Clifton Fu is a 57 year old male with a history of hypercholesterolemia, prior tobacco use, coronary artery disease status post two-vessel bypass 2014 at [facility], chronic chest pain syndrome, intermittent syncope, orthostatic hypotension, tobacco dependence, bipolar disorder/depression/schizop hrenia. An echocardiogram was performed on June 09, 2017. LV systolic function normal EF 55-60%. Basal inferior and basal inferoseptal hypokinesis. Diastolic filling pattern indicates impaired relaxation. Left atrium mildly dilated. No significant valvular abnormality. He was admitted to [facility] ER on June 15, 2017 with acute onset of chest pain while at rest. The episode radiated to his neck bilaterally. He was admitted and ruled out by cardiac enzymes. It was felt that his discomfort was likely musculoskeletal,especially in the setting of a recent nuclear stress test from May 15, 2017 which showed no evidence of active ischemia. EKG was negative for ischemic changes. Nuclear stress test 01/22/19 that showed no clear evidence of myocardial ischemia and a small area of myocardial infarct in the apical anterior wall of the LV in the distribution of the LAD. Prior nuclear stress test from November 2017 showed a small area of apical anterior wall infarct with no ischemia. EF 58%. Event monitor 02/26/19 10/29/2018: There were no arrhythmias detected. He was last seen at [facility] on 11/16/2020 (). Blood pressure 129/81. Weight 250 pounds. Blood work 02/08/19: Sodium 140, potassium 3.6, admission K 2.8, BUN 6, creatinine 1.20, GFR 68, magnesium 2.5, white count 6.9, hemoglobin 13, hematocrit 37 8, platelets 277.Blood work June 15, 2017: Sodium 136, potassium 3.6, BUN 14, creatinine 1.1, white count 8.5, hemoglobin 13 6, hematocrit 39 6, cardiac troponin less than 0.015.Blood work May 14, 2017: White count 8.3, hemoglobin 14.4, hematocrit 41.5, platelets 250, sodium 135, potassium 3.6, BUN 9, creatinine 1.15, total cholesterol 149, triglycerides 239, HDL 24, LDL 77. He presented to the emergency room on 07/27/2023 with reports of chest pain, shortness of breath, weakness and a sense of incomplete bladder emptying. He has had a chronic Solomon catheter in place due to urinary retention. He remains at the facility. Cardiac troponin negative at 0.007. Chest x-ray negative. EKG with no acute findings. Blood work sodium 137, potassium 3.2, BUN 11, creatinine 1, GFR 87, blood sugar 221, white count 9.2, hemoglobin 12.7, hematocrit 35 6, platelets 188. At the last visit, he reported that he lives in a [facility] however he is now at [facility]. He has had a solomon catheter for the past month. He reports that he has had on and off left sided chest pain and SOB for the past 6 months. He reports that the chest pain happens with any activity . He does not smoke tobacco and quit a year ago. He reports that he will likely need a TURP. He is followed by Dr. Willoughby. He presented to the emergency room on 08/21/23 and most recently on 09/01/2023 with chest pain and shortness of breath non responsive to nitroglycerin. He described left sided chest pain that occurs randomly and not necessarily with exertion. Troponin negative at 0.005. CXR negative. Labs showed a White count 9.6, hemoglobin 13.2, hematocrit 37 8, sodium 136, potassium 3.7, BUN 9, creatinine 0.9, GFR greater than 90, blood sugar 116, AST 30, ALT 55. He was accompanied by an MA. No further reports of chest pain or SOB. Nuclear medicine stress test performed 09/03/2023: Anterior and apical infarct with lenora-infarct ischemia. Global left ventricular function is normal. EF 58%. The transient ischemic dilatation index is normal. Intermediate risk myocardial perfusion scan. Date of Procedure: 09/18/2023,03:43 PMDiagnostic Cath Progressive Care Unit Registered Nurse: Tony Trevizo MDProcedure Indications:Diagnostic Procedure(s):Procedure:Jade ogram, Coronary *Intsuprep Coraopagraftima-Gram *Left Heart Cath *Art Access - L Radial Artery *Diagnostic Event Status: ElectiveDiagnostic Findings:Dominance: RightLeft Main* was moderate in caliber.* had a 50% distal stenosis.LAD* was moderate in caliber.* was occluded proximally.Circumflex* was large in caliber.* had minor luminal irregularities.RCA* was a dominant vessel.* was moderate in caliber.* had minor luminal irregularities.Grafts* the MINA graft to the LAD was patent.* the SVG to the D1 was large and patent.Hemodynamic DataEjection Method: RadionucleotideEjection Fraction: 58%Pressures:Site: Syst/A Wave: Diast/V Wave: Mean/End Diast:AO 122 71 91LV 133 1 8LV 131 3 9AO 130 71 91LV 133 8 Nuclear stress test was abnormal. Elective cardiac cath via LRA today revealed:Patent MINA to LAD.Patent SVG to D1.Proximally occluded LAD with no significant LCX or RCA disease noted.Diagnostic Recommendation:Medical therapy is recommended.He underwent the cardiac catheterization at [facility]. No stenting required. MINA and SVG to D1 patient. No significant RCA or LCX disease. Medical management recommended. He denies chest pain at this time but reports that he is having difficulty with sleep and depression. He is currently smoking. He has lost weight due to decreased appetite. Recent adjustment in the Effexor. Today, his weight has increased by 29 lbs since his visit in September 2023. He has had multiple inpatient hospitalizations for mental health. He is eating poorly, ordering out Welsh food, pizza, [employer]. Power Dominique MD [address] [place] [address], [phone], [facility]. 04/16/2024 07:46:38
--- OUTSIDE RECORDS SUMMARY | 2025-06-09 19:53 | XMS_ITS | Encounter Summary ---
Author Organization [facility] Address [address] [place] [address] Care Team Providers Care Seo Professional Name Role Phone Gabriel Sykes MD Primary Care Provider Susana Nicholas MD Primary Care Provider Reason for Visit * Reason Comments E-prescribing Refill Request Encounter Details Date Type Department Care Team ([facility] st Contact Info) Description 01/26/2018 Refill [facility] [address] [place] [phone] Juventino Kim MD [address] [address] E-prescribing Refill Request Social History Tobacco Use [...] smoking / using tobacco Lifestyle No Estefani Chvaez documented as of this encounter Visit Diagnoses Not on filedocumented in this encounter Care Teams Seo Professional Relationship Specialty Start Date End Date Gabriel Sykes MD PCP - General Family Medicine 12/03/13 05/24/22 Susana Ashton MD [address] [place] [address] PCP - General Family Medicine 05/25/22 documented as of this encounter
--- OUTSIDE RECORDS SUMMARY | 2025-06-09 19:53 | XMS_ITS | Encounter Summary ---
Author Organization [facility] Address [address] [place] [address] Care Team Providers Care Wooden Box Maker Name Role Phone Renate Samuels MD, Jeannine Primary Care Provide r Encounter Details Date Type Department Care Team (Late st Contact Info) Description 09/30/2022 Orders Only [facility] [address] [place] [address] Lyn Mcpherson, [address] [id number] Iron deficiency anemia, unspecified iron deficiency anemia type (Primary Dx); Vitamin D deficiency; Vitamin B deficiency Social History Tobacco Use Types Packs/Day Years [...] Orientation Straight documented as of this encounter Plan of Treatment Upcoming Encounters Date Type Department Care Team (Late st Contact Info) Description 11/07/2025 11:30 AM EDT Office Visit [facility] [address] [place] [address] Road Machine Operator: Chao Messina MD [address] [place] [phone] Scheduled Procedures Name Priority Associated Diagnoses Date/Ti me COLONOSCOPY SCREENING, HIGH RISK WITH POSSIBLE MODERATE SEDATION History of colon polyps documented as of this encounter Goals Goal Patient Goal Type Associated Problems Recent Progress Patient-Stated? Author General - Chronic complications- prevent/detect /treat General Improving(03/26 10:16 AM EDT) No Rohini Allison RN documented as of this encounter Results * Due to [place] state law, this organization might not be sharing negative HIV tests. * Vitamin D, 25-Hydroxy, Total, Immunoassay (11/11/2022 12:44 PM EDT) Vitamin D 25-OH 38.8 ng/mL [facility] 11/11/2022 4:06 PM EDT [facility] [employer] [facility] Comment: Deficiency <20 ng/mL Insufficiency 20-30 ng/mL Sufficiency 30-100 ng/mL Blood Structure of peripheral vein / Unknown Venipuncture / Unknown 11/11/2022 12:44 PM EDT 11/11/2022 12:44 PM EDT us Lyn Mcpherson DPM LAB BLOOD ORDERABLES Final Result [facility] [address] [place] [phone], * Folate (11/11/2022 12:44 PM EDT) Folate 19.85 See Comment ng/mL [facility] 11/11/2022 4:07 PM EDT [facility] Comment: Normal: >5.38 ng/mL Indeterminate: 3.38-5.38 ng/mL Deficient: <3.37 ng/mL Dietary supplements containing biotin may interfere in assays and may skew analyte results to be falsely high. For patients receiving the recommended daily doses of biotin, draw samples at least 8 hours following the last biotin supplementation. For patients on dena-doses of biotin supplements, draw samples at least 72 hours following the last biotin supplementation. Blood Structure of peripheral vein / Unknown Venipuncture / Unknown 11/11/2022 12:44 PM EDT 11/11/2022 12:44 PM EDT Lyn Mcpherson DPM LAB BLOOD ORDERABLES Final Result Performing Organization Address [facility] Co de Phone Number [facility] [address] [place] [id number], [place] * Vitamin B12 (11/11/2022 12:44 PM EDT) Vitamin B12 638 211 - 911 pg/mL [facility] 11/11/2022 4:07 PM EDT [facility] Comment: Normal: 211 - 911 pg/mL Deficient: 32 - 246 pg/mL Blood Structure of peripheral vein / Unknown Venipuncture / Unknown 11/11/2022 12:44 PM EDT 11/11/2022 12:44 PM EDT Lyn Mcpherson DPM LAB BLOOD ORDERABLES Final Result Performing Organization Address [facility] de Phone Number [facility] [address] [place] [phone], [place] * CBC Auto Differential (11/11/2022 12:44 PM EDT) WBC 8.2 4.3 - 10.8 10*3/uL 11/11/2022 1:50 PM EDT [facility] RBC 4.51 4.20 - 5.80 10*6/uL 11/11/2022 1:50 PM EDT [facility] Hemoglobin 13.7 13.2 - 17.1 g/dL 11/11/2022 1:50 PM EDT [facility] Hematocrit 39.5 39.0 - 52.0 % 11/11/2022 1:50 PM EDT [facility] MCV 87.5 80.0 - 100.0 fL 11/11/2022 1:50 PM EDT [facility] MCH 30.5 27.0 - 34.0 pg 11/11/2022 1:50 PM EDT [facility] MCHC 34.8 29.0 - 36.0 g/dL 11/11/2022 1:50 PM EDT [facility] RDW 14.4 11.0 - 15.0 % 11/11/2022 1:50 PM EDT [facility] Platelets 240 140 - 440 10*3/uL 11/11/2022 1:50 PM EDT [facility] MPV 8.8 7.6 - 11.6 fL 11/11/2022 1:50 PM EDT [facility] Neutrophil % 64.0 % 11/11/2022 1:50 PM EDT [facility] Lymphocyte % 24.8 % 11/11/2022 1:50 PM EDT [facility] Monocyte % 8.2 % 11/11/2022 1:50 PM EDT [facility] Eosinophil % 1.8 % 11/11/2022 1:50 PM EDT [facility] Basophil % 1.2 % 11/11/2022 1:50 PM EDT [facility] Neutrophil # 5.30 2.20 - 7.50 10*3/uL 11/11/2022 1:50 PM EDT [facility] Lymphocyte # 2.0 1.3 - 4.5 10*3/uL 11/11/2022 1:50 PM EDT [facility] Monocyte # 0.7 0.0 - 1.5 10*3/uL 11/11/2022 1:50 PM EDT [facility] Eosinophil # 0.1 0.0 - 1.0 10*3/uL 11/11/2022 1:50 PM EDT [facility] Basophil # 0.1 0.0 - 0.2 10*3/uL 11/11/2022 1:50 PM EDT [facility] Smear Review? No 11/11/2022 1:50 PM EDT [facility] Blood Structure of peripheral vein / Unknown Venipuncture / Unknown 11/11/2022 12:44 PM EDT 11/11/2022 12:44 PM EDT us Lyn Mcpherson DPM LAB BLOOD ORDERABLES Final Result [facility] [address] [place] [address], documented in this encounter Visit Diagnoses Diagnosis Iron deficiency anemia, unspecified iron deficiency anemia type- Primary Vitamin D deficiency Vitamin B deficiency Unspecified vitamin B deficiency documented in this encounter Additional Health Concerns Infection Onset Date Last Indicated Resolved Time R/O Respiratory Virus Infection 10/04/2022 10/04/2022 7:13 [...] documented as of this encounter Care Teams Wooden Box Maker Relationship Specialty Start Date End Date Jeannine Dewitt MD [address] [place] [phone] PCP - General Family Medicine 09/14/24 documented as of this encounter
--- OUTSIDE RECORDS SUMMARY | 2025-06-09 19:53 | XMS_ITS | Data Portability ---
Author Organization [place] - [facility] Address [address] [place] [address] Care Team Providers Care Solid Waste Landfill Technician Name Role Phone LATASHA HARRIS Primary Care Provider [phone] Assessment Encounter Date Assessment Date Assessment LastModified by Organization Details LastModified Time 09/10/2024 09/10/2024 CPE due 05/04/2025 Not available 09/08/2024 09:14:15 02/10/2025 02/10/2025 My supervising provider is Dr Harris for this visit and Dr Harris was present in the office during this office visit. CPE due I was present in the office and readily available for any questions or concerns. I have reviewed the history, physical and assessment of this encounter and agree with the treatment plan. -Dr. Renate perez Not available 02/11/2025 15:55:11 05/11/2025 05/11/2025 My supervising provider is Dr Harris for this visit and Dr Harris was present in the office during this office visit. CPE as scheduled I was present in the office and readily available for any questions or concerns. I have reviewed the history, physical and assessment of this encounter and agree with the treatment plan. -Dr. Renate perez Not available 05/24/2025 13:14:34 06/03/2025 06/03/2025 My supervising provider is Dr Harris for this visit and Dr Harris was present in the office during this office visit. 1 yr CPE I was present in the office and readily available for any questions or concerns. I have reviewed the history, physical and assessment of this encounter and agree with the treatment plan. -Dr. Harris [email or web address] Not available 06/06/2025 21:26:33 Plan of Treatment Reminders Order Date Submit Date Provider Last Modified By Organization Details Last Modified Time Details Appointments AMB NEW PATIENT 30MIN 2025 08:30A M Leonel Mcnair MD Not available Not available Not available Lab hepatitis C virus Ab, serum 2024 025 [facility], [address] [place], [address], 06/03/2025 18:44:21 prostate specific Ag, serum or plasma 2024 025 [facility], [address] [place], [address], 06/03/2025 18:45:54 microalbu min, urine 2024 025 [facility], [address] [place], [address], 06/03/2025 12:38:02 CMP, serum or plasma 2024 025 [facility], [address] [place], [address], 06/03/2025 18:44:54 lipid panel, serum 2024 025 [facility], [address] [place], [address], 06/03/2025 18:44:55 CBC w/ auto diff 2024 025 [facility], [address] [place], [address], 06/03/2025 18:17:21 TSH + free T4, serum 2024 025 [facility], [address] [place], [address], 06/03/2025 18:44:55 hemoglobi n A1C, fingersti ck 2024 025 EL[facility]ABETH In-Office Order, Internal Use Only DO Not Attach Compendium DO Not Attach Compendium, Do Not Delete/merge, [id number] 02/10/2025 13:54:35 glucose, fingersti ck, blood 2024 025 ELIZABETH In-Office Order, Internal Use Only DO Not Attach Compendium DO Not Attach Compendium, Do Not Delete/merge, [id number] 02/10/2025 13:54:02 Referral diabetic ophthalmo logy referral 2024 025 [facility], [address], [place], [address], 06/03/2025 13:10:38 gastroent erologist referral [address] [facility] Gastroenterol ogy, [address] [facility] [place], [address], 06/06/2025 12:45:26 urologist referral 2024 025 [email or web address]rology, [address] [facility], [facility] [address], [place], [address], 05/17/2025 11:34:29 spine center referral 2024 025 ELIZABETH Nassar MD, [facility], [address], [place], [address], 05/15/2025 04:02:41 endocrino logy referral - ELISABET DURAN MD 2024 025 [facility], [address] [facility] [place], [address], 05/16/2025 04:16:[address] referral 2024 025 [facility] Audiology, [address] [facility], [place], [address], 04/28/2025 10:45:41 physical therapist referral - SP ORIF of right ankle 2 mos ago, still in boot, still very sore [address] [facility], [address] [place], [address], 04/28/2025 10:45:41 Procedures None recorded. Surgeries None recorded. Imaging LDCT, chest, for lung cancer screening 2024 025 [facility] (Central Scheduling), [address] [place], [address], 06/04/2025 20:25:44 US, abdomen, limited - Liver lesion [address] (Central Scheduling), [address] [place], [address], 05/11/2025 13:35:17 Medication Orders None recorded. Patient TargetsNo targets recorded. Patient InstructionsNo instructions recorded. Reason for Referral Physical Therapist Referral for Fracture of ankle SP ORIF of right ankle 2 mos ago, still in boot, still very sore Referring Physician: Family Andreas Fall, Encounter Date: 09/10/2024 Newspaper Stuffer Referral for Vikas ateral hearing loss Referring Physician: Family Andreas Fall, Encounter Date: 09/10/2024 Spine Center Referral for Ch ronic low back pain Referring Physician: Family Andreas Fall, Encounter Date: 02/10/2025 Endocrinology Referral for T ype 2 diabetes mellitus ELISABET DURAN MD Referring Physician: Family Andreas Fall, Encounter Date: 02/10/2025 Urologist Referral for Acute retention of urine Referring Physician: Family Andreas Fall, Encounter Date: 05/11/2025 Diabetic Ophthalmology Refer ral for Type 2 diabetes mellitus Referring Physician: Family Andreas Fall, Encounter Date: 06/03/2025 Radio Station Engineer Referral for Screening for malignant neoplasm of colon Referring Physician: Family Andresa Fall, Encounter Date: 06/03/2025 Results Created Date Observation Date Name Description Value Unit Range Abnormal Flag Note LastModifiedBy Organization Detail LastModifiedTime 02/04/20 25 02/03/2025 COMPL ETE BLOOD COUNT AUTO DIFF white blood count 8.39 K/uL 3.5-11 .0 normal Not Available [facility] Department [address] [place] [address], 69[address] 02/03/2025 16:19:57 02/04/2002/03/2025 COMPL ETE BLOOD COUNT AUTO DIFF red blood count 3.76 M/uL 3.90-5 .50 low Not Available [facility] Department [address] [place] [address], 998[address] 02/03/2025 16:19:57 02/04/2002/03/2025 COMPL ETE BLOOD COUNT AUTO DIFF hemoglobin 10.8 g/dL 14.0-1 8.0 low Not Available [facility] Department [address] [place] [address], 41137 02/03/2025 16:19:57 02/04/2002/03/2025 COMPL ETE BLOOD COUNT AUTO DIFF hematocrit 31.7 % 42.0-5 4.0 low Not Available [facility] Department [address] [place] [address], 28976 02/03/2025 16:19:57 02/04/20 25 02/03/2025 COMPL ETE BLOOD COUNT AUTO DIFF mean corpuscular volume 84.3 fL 80.0-1 00.0 normal Not Available [facility] [address] [place] [address], 26872 02/03/2025 16:19:57 02/04/2002/03/2025 COMPL ETE BLOOD COUNT AUTO DIFF mean corpuscular hemoglobin 28.7 pg 25.4-3 4.6 normal Not Available [facility] Department [address] [place] [address], 16342 02/03/2025 16:19:57 02/04/20 25 02/03/2025 COMPL ETE BLOOD COUNT AUTO DIFF mean corpuscular HGB conc 34.1 g/dL 31.0-3 7.0 normal Not Available [facility] Department [address] [place] [address], 41402 02/03/2025 16:19:57 06/12/20 25 02/03/2025 COMPL ETE BLOOD COUNT AUTO DIFF red cell distribution width 14.0 % 11.5-1 4.5 normal Not Available [facility] [address] [place] [address], 73739 02/03/2025 16:19:57 02/04/20 25 02/03/2025 COMPL ETE BLOOD COUNT AUTO DIFF platelet count 245 K/uL 150-40 0 normal Not Available [facility] [address] [place] [address], 10801 02/03/2025 16:19:57 02/04/20 25 02/03/2025 COMPL ETE BLOOD COUNT AUTO DIFF neutrophils percent auto 69.6 % 35.0-6 6.0 high Not Available [facility] [address] [place] [address], 21659 02/03/2025 16:19:57 02/04/20 25 02/03/2025 COMPL ETE BLOOD COUNT AUTO DIFF imm gran pct auto 0.2 % 0.0-0. 6 normal Not Available [facility] [address] [place] [address], 94[address] 02/03/2025 16:19:57 02/04/20 25 02/03/2025 COMPL ETE BLOOD COUNT AUTO DIFF lymphocytes percent auto 19.4 % 25.0-4 5.0 low Not Available [facility] [address] [place] [address], 00187 02/03/2025 16:19:57 02/04/20 25 02/03/2025 COMPL ETE BLOOD COUNT AUTO DIFF monocytes percent auto 8.8 % 0.0-13 .0 normal Not Available [facility] [address] [place] [address], 91973 02/03/2025 16:19:57 02/04/20 25 02/03/2025 COMPL ETE BLOOD COUNT AUTO DIFF eosinophils percent auto 1.3 % 0.0-8. 0 normal Not Available [facility] [address] [place] [address], 01863 02/03/2025 16:19:57 02/04/20 25 02/03/2025 COMPL ETE BLOOD COUNT AUTO DIFF basophils percent auto 0.7 % 0.0-1. 0 normal Not Available [facility] [address] [place] [address], 58536 02/03/2025 16:19:57 02/04/20 25 02/03/2025 COMPL ETE BLOOD COUNT AUTO DIFF NRBC pct auto 0.0 /100_ WBC 0.0 normal Not Available [facility] [address] [place] [address], 22745 02/03/2025 16:19:57 02/04/20 25 02/03/2025 COMPL ETE BLOOD COUNT AUTO DIFF neutrophils absolute auto 5.83 K/uL 1.5-7. 5 normal Not Available [facility] [address] [place] [address], 90950 02/03/2025 16:19:57 02/04/20 25 02/03/2025 COMPL ETE BLOOD COUNT AUTO DIFF imm gran abs auto 0.02 K/uL 0.00-0 .09 normal Not Available [facility] [address] [place] [address], 00305 02/03/2025 16:19:57 02/04/20 25 02/03/2025 COMPL ETE BLOOD COUNT AUTO DIFF lymphocytes absolute auto 1.63 K/uL 0.8-4. 8 normal Not Available [facility] [address] [place] [address], 89085 02/03/2025 16:19:57 02/04/20 25 02/03/2025 COMPL ETE BLOOD COUNT AUTO DIFF monocytes absolute auto 0.74 K/uL 0.4-1. 3 normal Not Available [facility] [address] [place] [address], 59163 02/03/2025 16:19:57 02/04/20 25 02/03/2025 COMPL ETE BLOOD COUNT AUTO DIFF eosinophils absolute auto 0.11 K/uL 0.0-0. 8 normal Not Available [facility] [address] [place] [address], 838[address] 02/03/2025 16:19:57 02/04/20 25 02/03/2025 COMPL ETE BLOOD COUNT AUTO DIFF basophils absolute auto 0.06 K/uL 0.0-0. 6 normal Not Available [facility] [address] [place] [address], 97067 02/03/2025 16:19:57 02/04/20 25 02/03/2025 COMPL ETE BLOOD COUNT AUTO DIFF NRBC abs auto 0.00 K/uL 0.00 normal Not Available [facility] Department [address] [place], [address] 02/03/2025 16:19:57 02/04/2002/03/2025 COMPR EHENS DWAYNE MET. PANEL sodium 129 mmol/ L 136-14 5 low Not Available [facility] [address] [place] [address], 25585 02/03/2025 16:27:35 02/04/20 25 02/03/2025 COMPR EHENS DWAYNE MET. PANEL potassium 3.4 mmol/ L 3.5-5. 1 low Not Available [facility] Department [address] [place] [address], 79878 02/03/2025 16:27:35 02/04/20 25 02/03/2025 COMPR EHENS DWAYNE MET. PANEL chloride 92 mmol/ L 98-107 low Not Available [facility] Department [address] [place] [address], 84384 02/03/2025 16:27:35 02/04/20 25 02/03/2025 COMPR EHENS DWAYNE MET. PANEL carbon dioxide 25 mmol/ L 22-29 normal Not Available [facility] Department [address] [place] [address], 75813 02/03/2025 16:27:35 02/04/20 25 02/03/2025 COMPR EHENS DWAYNE MET. PANEL anion gap 16 mmol/ L 10-20 normal Not Available [facility] Department [address] [place] [address], 56357 02/03/2025 16:27:35 02/04/2002/03/2025 COMPR EHENS DWAYNE MET. PANEL blood urea nitrogen 7 mg/dL 8-23 low Not Available [facility] Department [address] [place] [address], 17238 02/03/2025 16:27:35 02/04/20 25 02/03/2025 COMPR EHENS DWAYNE MET. PANEL creatinine 0.69 mg/dL 0.67-1 .17 normal Not Available [facility] Department [address] [place] [address], 82867 02/03/2025 16:27:35 02/04/20 25 02/03/2025 COMPR EHENS DWAYNE MET. PANEL estimated glomerular filt rate 106 GFR Value : mL/mi n/1.7 3 squar e meter s Calcu latio n: CKD-E PI Creat inine Equat ion (2020 ) Chron ic Kidne y Disea se is defin ed as eithe r of the follo wing prese nt for >= 3 month s: - GFR less than 60 mL/mi n/1.7 3 squar e meter s. - Micro album in:Ur . Creat inine Ratio >= 30 mg/g or other marke rs of kidne y damag e Kidne y failu re is less than 15 mL/mi n/1.7 3 squar e meter s This test is not perfo rmed in patie nts under the age of 18. Not Available [facility] Department [address] [place] [address], 52057 02/03/2025 16:27:35 02/04/20 25 02/03/2025 COMPR EHENS DWAYNE MET. PANEL glucose 93 mg/dL 82-115 normal Not Available [facility] Department [address] [place] [address], 16365 02/03/2025 16:27:35 02/04/20 25 02/03/2025 COMPR EHENS DWAY[place] MET. PANEL calcium 9.2 mg/dL 8.8-10 .2 normal Not Available [facility] Department [address] [place] [address], 70435 02/03/2025 16:27:35 02/04/20 25 02/03/2025 COMPR EHENS DWAYNE MET. PANEL bilirubin total 0.3 mg/dL 0.2-1. 2 normal Not Available [facility] Department [address] [place] [address], 40337 02/03/2025 16:27:35 02/04/20 25 02/03/2025 COMPR EHENS DWAYNE MET. PANEL aspartate amino transferase 24 U/L 5-40 normal Not Available [facility] Department [address] [place] [address], 21395 02/03/2025 16:27:35 02/04/20 25 02/03/2025 COMPR EHENS DWAYNE MET. PANEL alanine aminotransfe rase 10 U/L 5-41 normal Not Available [facility] Department [address] [place] [address], 32341 02/03/2025 16:27:35 02/04/20 25 02/03/2025 COMPR EHENS DWAY[place] MET. PANEL total protein 6.7 g/dL 6.4-8. 3 normal Not Available [facility] Department [address] [place], [address] 02/03/2025 16:27:35 02/04/20 25 02/03/2025 COMPR EHENS DWAYNE MET. PANEL albumin level 4.3 g/dL 3.5-5. 2 normal Not Available [facility] Department [address] [place], [address] 02/03/2025 16:27:35 02/04/20 25 02/03/2025 COMPR EHENS DWAYNE MET. PANEL globulin 2.4 gm/dL 2.0-3. 5 normal Not Available [facility] Department [address] [place] [address], 27491 02/03/2025 16:27:35 02/04/20 25 02/03/2025 COMPR EHENS DWAYNE MET. PANEL albumin globulin ratio 1.8 % 1.1-2. 5 normal Not Available [facility] Department [address] [place], [address] 02/03/2025 16:27:35 02/04/20 25 02/03/2025 COMPR EHENS DWAYNE MET. PANEL alkaline phosphatase 96 U/L 40-129 normal Not Available [facility] Department [address] [place], [address] 02/03/2025 16:27:35 02/04/20 25 02/03/2025 MAGNE SIUM magnesium 1.70 mg/dL 1.6-2. 4 normal Not Available [facility] Department [address] [place], [address] 02/03/2025 16:27:36 02/04/20 25 02/03/2025 TROPO HECTOR T 5TH GENER ATION troponin T 5TH generation 13 NG/L <23 Not Available [facility] Department [address] [place], [address] 02/03/2025 16:27:37 02/11/20 25 02/10/2025 gluco se, finge rstic k, blood Glucose Result- Ref Range (70 - 106 mg/dl) 104 Not Available In-Of fice Order Internal Use Only DO Not Attach Compendium DO Not Attach Compendium, Do Not Delete/merge, [id number] 02/10/2025 13:40:06 02/11/20 25 02/10/2025 gluco se, melvinae rstic k, blood Lot # [id number] Not Available In-Office Order Internal Use Only DO Not Attach Compendium DO Not Attach Compendium, Do Not Delete/merge, [id number] 02/10/2025 13:40:06 02/11/20 25 02/10/2025 gluco se, finge rstic k, blood Exp Date 025 Not Available In-Office Order Internal Use Only DO Not Attach Compendium DO Not Attach Compendium, Do Not Delete/merge, [id number] 02/10/2025 13:40:06 02/11/20 25 02/10/2025 hemog lobin A1C, finge rstic k Hemoglobin A1C Result- Ref Range (4.0 - 5.7) 5.6 Not Available In-O ffice Order Internal Use Only DO Not Attach Compendium DO Not Attach Compendium, Do Not Delete/merge, [id number] 02/10/2025 13:39:59 02/11/20 25 02/10/2025 hemog lobin A1C, melvinae rstic k Lot # [id number] Not Available In-Office Order Internal Use Only DO Not Attach Compendium DO Not Attach Compendium, Do Not Delete/merge, [id number] 02/10/2025 13:39:59 02/11/20 25 02/10/2025 hemog lobin A1C, finge rstic k Exp Date 027 Not Available In-Office Order Internal Use Only DO Not Attach Compendium DO Not Attach Compendium, Do Not Delete/merge, [id number] 02/10/2025 13:39:59 02/11/20 25 02/10/2025 hemog lobin A1C, finge rstic k Internal Control Valid Not Available In-Off ice Order Internal Use Only DO Not Attach Compendium DO Not Attach Compendium, Do Not Delete/merge, [id number] 02/10/2025 13:39:59 05/16/20 25 05/16/2025 COVID -19 ID NOW (ABBO TT) covid-19 test Negati ve negati ve Not Available [facility] Department [address] [place], [address] 05/16/2025 19:38:01 05/17/2005/17/2025 BASIC METAB OLIC PANEL sodium 135 mmol/ L 136-14 5 low Not Available [facility] Department [address] [place] [address], 92461 05/17/2025 10:44:54 05/17/20 25 05/17/2025 BASIC METAB OLIC PANEL potassium 3.7 mmol/ L 3.5-5. 1 normal Not Available [facility] Department [address] [place] [address], 34096 05/17/2025 10:44:54 05/17/2005/17/2025 BASIC METAB OLIC PANEL chloride 99 mmol/ L 98-107 normal Not Available [facility] Department [address] [place] [address], 87432 05/17/2025 10:44:54 05/17/20 25 05/17/2025 BASIC METAB OLIC PANEL carbon dioxide 20 mmol/ L 22-29 low Not Available [facility] Department [address] [place] [address], 68409 05/17/2025 10:44:54 05/17/20 25 05/17/2025 BASIC METAB OLIC PANEL anion gap 19 mmol/ L 10-20 normal Not Available [facility] Department [address] [place] [address], 62880 05/17/2025 10:44:54 05/17/20 25 05/17/2025 BASIC METAB OLIC PANEL blood urea nitrogen 7 mg/dL 8-23 low Not Available [facility] Department [address] [place], [address] 05/17/2025 10:44:54 05/17/20 25 05/17/2025 BASIC METAB OLIC PANEL creatinine 0.78 mg/dL 0.67-1 .17 normal Not Available [facility] Department [address] [place] [address], 26221 05/17/2025 10:44:54 05/17/20 25 05/17/2025 BASIC METAB OLIC PANEL estimated glomerular filt rate 102 GFR Value : mL/mi n/1.7 3 squar e meter s Calcu latio n: CKD-E PI Creat inine Equat ion (2020 ) Chron ic Kidne y Disea se is defin ed as eithe r of the follo wing prese nt for >= 3 month s: - GFR less than 60 mL/mi n/1.7 3 squar e meter s. - Micro album in:Ur . Creat inine Ratio >= 30 mg/g or other marke rs of kidne y damag e Kidne y failu re is less than 15 mL/mi n/1.7 3 squar e meter s This test is not perfo rmed in patie nts under the age of 18. Not Available [facility] Department [address] [place], [address] 05/17/2025 10:44:54 05/17/2005/17/2025 BASIC METAB OLIC PANEL glucose 223 mg/dL 82-115 high Not Available [facility] Department [address] [place] [address], 63225 05/17/2025 10:44:54 05/17/2005/17/2025 BASIC METAB OLIC PANEL calcium 9.2 mg/dL 8.8-10 .2 normal Not Available [facility] Department [address] [place], [address] 05/17/2025 10:44:54 05/17/2005/17/2025 OSMOL ALITY , SERUM osmolality, serum 291 mOsm/ kg 280-30 1 normal Not Available [facility] Department [address] [place], [address] 05/17/2025 10:49:57 05/17/2005/17/2025 THYRO ID STIMU LATIN G HORMO NE thyroid stimulating hormone 0.654 uIU/m L 0.27-4 .2 normal Not Available [facility] Department [address] [place], [address] 05/17/2025 10:54:40 05/17/2005/17/2025 OSMOL ALITY URINE osmolality urine 176 mOsm/ kg 50-140 0 normal Not Available [facility] Department [address] [place], [address] 05/17/2025 13:21:19 05/21/2005/21/2025 COMPL ETE BLOOD COUNT AUTO DIFF white blood count 5.70 K/uL 3.5-11 .0 normal Not Available [facility] Department [address] [place] [address], 22400 05/21/2025 07:28:55 05/21/2005/21/2025 COMPL ETE BLOOD COUNT AUTO DIFF red blood count 4.23 M/uL 3.90-5 .50 normal Not Available [facility] Department [address] [place] [address], 20270 05/21/2025 07:28:55 05/21/2005/21/2025 COMPL ETE BLOOD COUNT AUTO DIFF hemoglobin 11.9 g/dL 14.0-1 8.0 low Not Available [facility] Department [address] [place] [address], 42890 05/21/2025 07:28:55 05/21/2005/21/2025 COMPL ETE BLOOD COUNT AUTO DIFF hematocrit 37.1 % 42.0-5 4.0 low Not Available [facility] Department [address] [place] [address], 60523 05/21/2025 07:28:55 05/21/2005/21/2025 COMPL ETE BLOOD COUNT AUTO DIFF mean corpuscular volume 87.7 fL 80.0-1 00.0 normal Not Available [facility] Department [address] [place] [address], 98503 05/21/2025 07:28:55 05/21/2005/21/2025 COMPL ETE BLOOD COUNT AUTO DIFF mean corpuscular hemoglobin 28.1 pg 25.4-3 4.6 normal Not Available [facility] Department [address] [place] [address], 51626 05/21/2025 07:28:55 05/21/2005/21/2025 COMPL ETE BLOOD COUNT AUTO DIFF mean corpuscular HGB conc 32.1 g/dL 31.0-3 7.0 normal Not Available [facility] Department [address] [place] [address], 21579 05/21/2025 07:28:55 05/21/2005/21/2025 COMPL ETE BLOOD COUNT AUTO DIFF red cell distribution width 13.7 % 11.5-1 4.5 normal Not Available [facility] Department [address] [place] [address], 36527 05/21/2025 07:28:55 05/21/2005/21/2025 COMPL ETE BLOOD COUNT AUTO DIFF platelet count 307 K/uL 150-40 0 normal Not Available [facility] Department [address] [place] [address], 95281 05/21/2025 07:28:55 05/21/20 25 05/21/2025 COMPL ETE BLOOD COUNT AUTO DIFF neutrophils percent auto 59.9 % 35.0-6 6.0 normal Not Available [facility] Department [address] [place] [address], 36217 05/21/2025 07:28:55 05/21/20 25 05/21/2025 COMPL ETE BLOOD COUNT AUTO DIFF imm gran pct auto 0.4 % 0.0-0. 6 normal Not Available [facility] Department [address] [place] [address], 18434 05/21/2025 07:28:55 05/21/20 25 05/21/2025 COMPL ETE BLOOD COUNT AUTO DIFF lymphocytes percent auto 26.1 % 25.0-4 5.0 normal Not Available [facility] Department [address] [place] [address], 00614 05/21/2025 07:28:55 05/21/20 25 05/21/2025 COMPL ETE BLOOD COUNT AUTO DIFF monocytes percent auto 9.5 % 0.0-13 .0 normal Not Available [facility] Department [address] [place] [address], 37899 05/21/2025 07:28:55 05/21/2005/21/2025 COMPL ETE BLOOD COUNT AUTO DIFF eosinophils percent auto 3.2 % 0.0-8. 0 normal Not Available [facility] Department [address] [place] [address], 08721 05/21/2025 07:28:55 05/21/2005/21/2025 COMPL ETE BLOOD COUNT AUTO DIFF basophils percent auto 0.9 % 0.0-1. 0 normal Not Available [facility] Department [address] [place] [address], 49671 05/21/2025 07:28:55 05/21/2005/21/2025 COMPL ETE BLOOD COUNT AUTO DIFF NRBC pct auto 0.0 /100_ WBC 0.0 normal Not Available [facility] Department [address] [place], [address] 05/21/2025 07:28:55 05/21/2005/21/2025 COMPL ETE BLOOD COUNT AUTO DIFF neutrophils absolute auto 3.42 K/uL 1.5-7. 5 normal Not Available [facility] Department [address] [place] [address], 61447 05/21/2025 07:28:55 05/21/2005/21/2025 COMPL ETE BLOOD COUNT AUTO DIFF imm gran abs auto 0.02 K/uL 0.00-0 .09 normal Not Available [facility] Department [address] [place] [address], 23941 05/21/2025 07:28:55 05/21/2005/21/2025 COMPL ETE BLOOD COUNT AUTO DIFF lymphocytes absolute auto 1.49 K/uL 0.8-4. 8 normal Not Available [facility] Department [address] [place] [address], [id number] 05/21/2025 07:28:55 05/21/2005/21/2025 COMPL ETE BLOOD COUNT AUTO DIFF monocytes absolute auto 0.54 K/uL 0.4-1. 3 normal Not Available [facility] Department [address] [place] [address], 43[address] 05/21/2025 07:28:55 05/21/2005/21/2025 COMPL ETE BLOOD COUNT AUTO DIFF eosinophils absolute auto 0.18 K/uL 0.0-0. 8 normal Not Available [facility] Department [address] [place] [address], 24[address] 05/21/2025 07:28:55 05/21/2005/21/2025 COMPL ETE BLOOD COUNT AUTO DIFF basophils absolute auto 0.05 K/uL 0.0-0. 6 normal Not Available [facility] Department [address] [place] [address], [address] 05/21/2025 07:28:55 05/21/2005/21/2025 COMPL ETE BLOOD COUNT AUTO DIFF NRBC abs auto 0.00 K/uL 0.00 normal Not Available [facility] Department [address] [place] [address], 12171 05/21/2025 07:28:55 05/23/2005/23/2025 HEMOG LOBIN A1C hemoglobin A1C % 5.8 % 4.0-5. 7 high % of the total HgB Inter preta tion ----- ----- ----- --- ----- ----- ----- - <5.7 Consi stent with the absen ce of diabe kahlil 5.7-6 .4 Consi stent with incre ased risk for diabe kahlil (pred iabet es) > or = to 6.5 Consi stent with Diabe kahlil Not Available [facility] Department [address] [place] [address], 57[address] 05/23/2025 07:24:19 05/23/2005/23/2025 BASIC METAB OLIC PANEL sodium 139 mmol/ L 136-14 5 normal Not Available [facility] Department [address] [place] [address], 76679 05/23/2025 07:31:59 05/23/2005/23/2025 BASIC METAB OLIC PANEL potassium 4.1 mmol/ L 3.5-5. 1 normal Not Available [facility] Department [address] [place] [address], 050[address] 05/23/2025 07:31:59 05/23/2005/23/2025 BASIC METAB OLIC PANEL chloride 101 mmol/ L 98-107 normal Not Available [facility] Department [address] [place] [address], 70610 05/23/2025 07:31:59 05/23/2005/23/2025 BASIC METAB OLIC PANEL carbon dioxide 26 mmol/ L 22-29 normal Not Available [facility] Department [address] [place] [address], 37[address] 05/23/2025 07:31:59 05/23/2005/23/2025 BASIC METAB OLIC PANEL anion gap 17 mmol/ L 10-20 normal Not Available [facility] Department [address] [place] [address], 18589 05/23/2025 07:31:59 05/23/2005/23/2025 BASIC METAB OLIC PANEL blood urea nitrogen 17 mg/dL 8-23 normal Not Available [facility] Department [address] [place] [address], 733[address] 05/23/2025 07:31:59 05/23/2005/23/2025 BASIC METAB OLIC PANEL creatinine 0.82 mg/dL 0.67-1 .17 normal Not Available [facility] Department [address] [place], [address] 05/23/2025 07:31:59 05/23/20 25 05/23/2025 BASIC METAB OLIC PANEL estimated glomerular filt rate 100 GFR Value : mL/mi n/1.7 3 squar e meter s Calcu latio n: CKD-E PI Creat inine Equat ion (2020 ) Chron ic Kidne y Disea se is defin ed as eithe r of the follo wing prese nt for >= 3 month s: - GFR less than 60 mL/mi n/1.7 3 squar e meter s. - Micro album in:Ur . Creat inine Ratio >= 30 mg/g or other marke rs of kidkatlin y damag e Kidne y failu re is less than 15 mL/mi n/1.7 3 squar e meter s This test is not perfo rmed in patie nts under the age of 18. Not Available [facility] Department [address] [place], [address] 05/23/2025 07:31:59 05/23/2005/23/2025 BASIC METAB OLIC PANEL glucose 105 mg/dL 82-115 normal Not Available [facility] Department [address] [place] [address], 0[address] 05/23/2025 07:31:59 05/23/20 25 05/23/2025 BASIC METAB OLIC PANEL calcium 9.8 mg/dL 8.8-10 .2 normal Not Available [facility] Department [address] [place] [address], 248[address] 05/23/2025 07:31:59 09/08/19 25 06/26/2024 CT, chest , w/ contr ast No observ ation record ed. [address] [address], [place], [address], 09/23/2024 15:45:16 02/04/20 25 02/03/2025 CT, head + brain , w/o contr ast [facility] [address] [facility] [place] [address] [place] Scan Report Signed Patien t: Mary Brink MR#: [id number] : 1965 Acct:H [id number] Age/Se x: 59 / M ADM Date: Loc: HE.ER Attend ing Dr: Sary pereira Physic cesar: Td Roa MD Date of Servic e: Proced ure(s) : CT head/b rain wo IV con Access ion Number (s): [id number] cc: Juventino garcia MD STUDY: CT head/b rain wo IV con 025 4:09 PM HISTOR Y: dizzin ess, syncop e COMPAR BLAYNE: 2020 TECHNI QUE: Axial slices were obtain ed from the forame n magnum up past the vertex withou t IV contra st. Humphries l and sagitt al reform ats. Dose reduct ion techni que with automa lady exposu re contro l was utiliz ed. FINDIN GS: Motion degrad ed examin ation, partic ularly at the skull base. Within this contex t: The size of the ventri cles and sulci are within normal limits for a patien t of this age. There is no acute intrac ranial hemorr mann, extraa xial fluid collec tion, mass effect , or midlin e shift. There is no acute territ orial infarc t or intrac ranial mass lesion visual ized. The skull is intact . Probab le mucous retent ion cyst of the right maxill zia sinus. . The extrac ranial soft tissue s are unrema rkable . The visual ized mastoi d air cells and middle ears are grossl y clear. 058 CT/CT head/b rain wo IV con IMPRES REINALDO: Motion degrad ed examin ation, partic ularly at the skull base. Within this contex t: No acute territ orial infarc t, acute intrac ranial hemorr mann, or mass effect . Electr onical ly Signed By: Yoni Sanchez MD On: 1627 Dictat ed By: Yoni Sanchez MD 1609 Signed By: Yoni Sanchez MD 1627 [facility] [address] [place], [address], 02/11/2025 08:07:35 04/15/2004/14/2025 CT, abdom en + pelvi s, w/ contr ast No observ ation record ed. [address], [place], [address], 04/27/2025 09:09:24 Result Notes Documentation Provider Name and Address Organization Details Recorded Time Ct, Head + Brain, W/o Contrast : [address] [address] [address] Scan Report Signed Patient: Clifton Brink MR#: [id number] : 1965 Acct:[id number] Age/Sex: 59 / M ADM Date: 02/03/25 Loc: HE.ER Attending Dr: Ordering Physician: Td Roa MD Date of Service: 02/03/25 Procedure(s): CT head/brain wo IV con Accession Number(s): [id number] cc: Latasha Harris MD STUDY: CT head/brain wo IV con 02/03/2025 4:09 PM HISTORY: dizziness, syncope COMPARISON: 07/04/2021 TECHNIQUE: Axial slices were obtained from the foramen magnum up past the vertex without IV contrast. Coronal and sagittal reformats. Dose reduction technique with automated exposure control was utilized. FINDINGS: Motion degraded examination, particularly at the skull base. Within this context: The size of the ventricles and sulci are within normal limits for a patient of this age. There is no acute intracranial hemorrhage, extraaxial fluid collection, mass effect, or midline shift. There is no acute territorial infarct or intracranial mass lesion visualized. The skull is intact. Probable mucous retention cyst of the right maxillary sinus.. The extracranial soft tissues are unremarkable. The visualized mastoid air cells and middle ears are grossly clear. CT/CT head/brain wo IV con IMPRESSION: Motion degraded examination, particularly at the skull base. Within this context: No acute territorial infarct, acute intracranial hemorrhage, or mass effect. Electronically Signed By: Yoni Sanchez MD On: 02/03/25 1627 Dictated By: Yoni Sanchez MD 02/03/25 1609 Signed By: Yoni Sanchez MD 02/03/25 1627 NANDA FALL [facility] [place], [phone], [facility] 02/11/2025 08:07:35 Problems Name Problem SNOMED Code Status Onset Date Resolution Date Notes Provider Name and Address Organization Details Recorded Time History of alcohol abuse 883143844 Active 2024 NANDA FALL [address] [facility] [place], [phone], [facility] 5 09:14:42 Schizoaffectiv e schizophrenia 494884990 Active 2024 NANDA FALL [address] [place] [address] [place], [address], [facility] 5 09:14:52 Suicidal thoughts 0214164 Active 2024 NANDA FALL [address] [place] [address] [place], [address], [facility] 5 09:15:25 Chronic low back pain 744395145 Active 2024 NANDA FALL [address] [place] [address] [place], [address], [facility] 5 09:15:39 Type 2 diabetes mellitus 55894409 Active 2024 NANDA FALL [address] [place] [address] [place], [address], [facility] 5 09:16:12 Hypercholester olemia 33210512 Active 2024 NANDA FALL [address] [place], [place] [address] [place], [address], [facility] 5 10:55:14 Chronic obstructive pulmonary disease 94146471 Active 2024 NANDA FALL [address] [place] [address] [place], [address], [facility] 10:55:22 Hypertensive disorder 18711515 Active 2024 NANDA FALL [facility] [place], [address], [facility] 5 10:57:08 Body mass index 30+ - obesity 270015505 Active 2024 NANDA FALL [facility] [place], [address], [facility] 5 11:26:37 Lesion of liver 131928909 Active 2024 NANDA FALL [facility] [place], [address], [facility] 13:33:04 History of myocardial infarct at less than 60 117771538 Active 2024 NANDA FALL [address] [place] [address] [place], [address], [facility] 21:01:11 Problem Notes None recorded. Procedures Surgical History Date Name Laterality Status Provider Name and Address Organization Details Recorded Time 06/03/20 25 Mini-Mental State Exam (MMSE) completed B[facility] 06/03/2025 11:09:15 06/03/20 25 Instrumental Activities of Daily Living completed BASSAM [facility] 06/03/2025 11:05:59 06/03/20 25 Activities of Daily Living Scale completed [facility]ASSAM [facility] 06/03/2025 11:04:48 Cabg vein three completed [place] [address], [facility] 09/10/2024 11:02:47 open reduction of fracture with internal fixation completed [place] [address], [facility] 09/10/2024 11:03:01 Imaging Results None recorded. Procedure Notes None recorded. Medical Equipment None Reported. Allergies Allergen ID Allergen Name Allergen Category Reaction Reaction Severity Criticality Documentation Date Start Date Code Code System Note Provider Name and Address Organization Details Recorded Time 21470930 peanut allergeni c extract food,medi cation anaphylax is severe high 09/10/2024 11042 8 RxNorm Kacie Rondon, NURIA holliday, EN[place] - [facility] 5 10:39:51 Medications Name Sig Start Date Stop Date Status Note LastModified by Organization Details LastModified Time daily-vit e multivita min tabs 02/02 completed Not Available Not Available Not Available atorvasta tin 40 mg tablet TAKE 1 TABLET AT BEDTIME FOR HYPERCHO LESTEROL EMIA active Not Available Not Available No t Available methocarb shivani 500 mg tablet Take 2 tablets every 8 hours by oral route as needed. active per [facility] d/ 05/02/25 Not Available Not Available Not Available metformin 500 mg tablet TAKE 1 TABLET EVERY DAY FOR DIABETES active Not Available Not Available No t Available acetamino phen 325 mg tablet TAKE 2 TABLETS BY MOUTH EVERY 6 HOURS NEEDED FOR PAIN active Not Available Not Available No t Available venlafaxi ne ER 75 mg capsule,e xtended release 24 hr TAKE 1 CAPSULE EVERY DAY FOR DEPRESSI ON active Not Available Not Available No t Available ibuprofen 800 mg tablet Take 1 tablet 3 times a day by oral route. active per [facility] d/ 05/02/25 Not Available Not Available Not Available clozapine 100 mg tablet TAKE 3 TABLETS BY MOUTH EVERY NIGHT active Not Available Not Available No t Available metoprolo l succinate ER 50 mg tablet,ex tended release 24 hr TAKE 1 TAB TWICE DAILY 2024 active Not Available Not Available Not Avai lable sucralfat e 1 gram tablet TAKE 1 TABLET BEFORE MEALS AND BEDTIME FOR GASTRITI S active Not Available Not Available No t Available clonazepa m 0.5 mg tablet TAKE 1 TABLET BY MOUTH IN THE MONRNING AND 2 TABLETS AT NIGHT DIRECTED 01/31 completed Not Available Not Available Not Available sertralin e 100 mg tablet TAKE 1 TABLET BY MOUTH EVERY DAY FOR DEPRESSI ON 05/26 completed stopped whil INPT 05/25 Not Available Not Available Not Available quetiapin e 200 mg tablet TAKE 1 TABLET BY MOUTH AT BEDTIME (DECREAS ED DUE TO RESTLESS NESS) 02/02 completed Not Available Not Available Not Available thiamine HCl (vitamin B1) 100 mg tablet TAKE 1 TABLET BY MOUTH ONCE A DAY 02/10 completed Not Available Not Available Not Available hydroxyzi ne pamoate 50 mg capsule TAKE 1 CAPSULE BY MOUTH EVERY 6 HOURS NEEDED 02/21 completed Not Available Not Available Not Available hydroxyzi ne HCl 50 mg tablet TAKE 1 TABLET BY MOUTH THREE TIMES A DAY NEEDED FOR ANXIETY active Not Available Not Available No t Available melatonin 3 mg tablet TAKE 1 TABLET BY MOUTH EVERY DAY IN THE EVENING 09/10 completed Not Available Not Available Not Available aspirin 81 mg tablet,de layed release TAKE 1 TABLET BY MOUTH EVERY DAY active Not Available Not Available No t Available acetamino phen 500 mg tablet TAKE 1 TABLET BY MOUTH EVERY 4 HOURS WHILE AWAKE NEEDED FOR PAIN, HEADACHE 09/10 completed Not Available Not Available Not Available Adderall XR 20 mg capsule,e xtended release Take 1 capsule every day by oral route. active Not Available Not Available No t Available acetamino phen ER 650 mg tablet,ex tended release TAKE 1 TABLET EVERY 8 HOURS BY ORAL ROUTE NEEDED FOR 14 DAYS, FOR PAIN. active Not Available Not Available No t Available risperido ne 2 mg tablet TAKE 1 TABLET BY MOUTH IN THE MORNING AND 2 TABLETS AT NIGHT DIRECTED 02/02 completed Not Available Not Available Not Available famotidin e 20 mg tablet Take 1 tablet twice a day by oral route. active per [facility] 05/02/25 Not Available Not Available Not Available magnesium oxide 400 mg (241.3 mg magnesium ) tablet TAKE 1 TABLET BY MOUTH TWICE A DAY active Not Available Not Available No t Available cyanocoba edouard (vit B-12) 500 mcg tablet TAKE 1 TABLET DAILY FOR SUPPLEME NT active Not Available Not Available No t Available Lidoderm 5 % topical patch APPLY 1 PATCH BY TOPICAL ROUTE ONCE DAILY (MAY WEAR UP TO 12HOURS. ) 02/10 completed Not Available Not Available Not Available tamsulosi n 0.4 mg capsule TAKE 1 CAPSULE BY MOUTH EVERYDAY AT BEDTIME active Not Available Not Available No t Available trazodone 100 mg tablet TAKE 1 TABLET AT BEDTIME FOR INSOMNIA active Not Available Not Available No t Available pantopraz ole 40 mg tablet,de layed release TAKE 1 TABLET BY MOUTH ONCE A DAY 02/02 completed Not Available Not Available Not Available ferrous sulfate 325 mg (65 mg iron) tablet TAKE 1 TABLET BY MOUTH EVERY DAY FOR ANEMIA active Not Available Not Available No t Available divalproe x ER 500 mg tablet,ex tended release 24 hr TAKE 3 TABLETS BY MOUTH EVERY NIGHT 03/15 completed stopped by psych provider Not Available Not Available Not Available guanfacin e 1 mg tablet Take 1 tablet every day by oral route. active Not Available Not Available No t Available nicotine 21 mg/24 hr daily transderm al patch PLEASE SEE ATTACHED FOR DETAILED DIRECTIO NS 02/10 completed Not Available Not Available Not Available nitroglyc abril 0.4 mg sublingua l tablet Place by sublingu al route. active Not Available Not Available No t Available docusate sodium 100 mg capsule TAKE 1 CAPSULE TWICE A DAY active Not Available Not Available No t Available aspirin 81 mg chewable tablet CHEW 1 TABLET BY MOUTH DAILY FOR PROPHYLA XIS active Not Available Not Available No t Available dextroamp hetamine- amphetami ne ER 10 mg 24hr capsule,e xtend release TAKE 2 CAPSULES BY MOUTH DAILY active Not Available Not Available No t Available metoprolo l succinate ER 25 mg tablet,ex tended release 24 hr TAKE 3 TABLETS BY MOUTH EVERY DAY active Not Available Not Available No t Available lorazepam 1 mg tablet Take 1 tablet as needed by oral route at bedtime. active Not Available Not Available No t Available ibuprofen 600 mg tablet TAKE 1 TABLET BY MOUTH EVERY 6 HOURS NEEDED FOR PAIN active Not Available Not Available No t Available mirtazapi ne 15 mg disintegr ating tablet TAKE 2 TABLETS BY MOUTH EVERY DAY AT NIGHT 02/02 completed Not Available Not Available Not Available oxybutyni n chloride 5 mg tablet TAKE 1 TABLET BY MOUTH TWICE A DAY 02/02 completed Not Available Not Available Not Available ondansetr on 4 mg disintegr ating tablet DISSOLVE 1 TABLET IN THE MOUTH EVERY 8 HOURS NEEDED FOR NAUSEA OR VOMITING . 02/02 completed Not Available Not Available Not Available sertralin e 50 mg tablet TAKE 3 TABS AT BEDTIME FOR DEPRESSI ON 09/10 completed Not Available Not Available Not Available olanzapin e 20 mg tablet TAKE 1 TABLET BY MOUTH EVERY DAY AT NIGHT 03/01 completed Not Available Not Available Not Available finasteri de 5 mg tablet TAKE 1 TABLET BY MOUTH ONCE A DAY active Not Available Not Available No t Available vitamin B complex capsule TAKE 1 CAPSULE BY MOUTH EVERY DAY active Not Available Not Available No t Available doxazosin 2 mg tablet TAKE 1 TABLET BY MOUTH EVERY DAY IN THE EVENING FOR 90 DAYS 03/01 completed not on STR discharg e list Not Available Not Available Not Available simethico ne 80 mg chewable tablet CHEW 1 TABLET AFTER MEALS AND AT BEDTIME FOR GAS/BLOA TING active Not Available Not Available No t Available Oyster Shell Calcium-V itamin D3 500 mg-5 mcg (200 unit) tablet TAKE 2 TABLETS BY MOUTH TWICE A DAY active Not Available Not Available No t Available atomoxeti ne 60 mg capsule TAKE 1 CAPSULE BY MOUTH EVERY DAY IN THE MORNING 05/05 completed Not Available Not Available Not Available duloxetin e 60 mg capsule,d elayed release Take 1 capsule every day by oral route. active Not Available Not Available No t Available eszopiclo ne 2 mg tablet TAKE 1 TABLET BY MOUTH NIGHTLY. TAKE IMMEDIAT ALEIDA BEFORE BEDTIME 03/01 completed Not Available Not Available Not Available clozapine 50 mg tablet TAKE 1 TABLET BY MOUTH EVERY DAY AT BEDTIME FOR TOTAL OF 350MG AT BEDTIME active Not Available Not Available No t Available vitamin B complex active Not Available Not Available Not Available multivita min 1x a day 03/01 completed Not Available Not Available Not Available clozapine 200 mg tablet TAKE 1 TABLET BY MOUTH TWICE A DAY active not taking Not Available Not Available Not Available cholecalc iferol (vitamin D3) 25 mcg (1,000 unit) tablet TAKE 2 TABLETS BY MOUTH EVERY DAY 05/19 completed taking calc/vit d combo Not Available Not Available Not Available Dairy Relief 9,000 unit tablet TAKE 1 TABLET BY MOUTH THREE TIMES A DAY active Not Available Not Available No t Available budesonid e-formote rol HFA 80 mcg-4.5 mcg/actua tion aerosol inhaler INHALE 2 PUFFS BY MOUTH EVERY DAY FOR ASTHMA active Not Available Not Available No t Available quetiapin e ER 300 mg tablet,ex tended release 24 hr TAKE 2 TABLETS BY MOUTH AT BEDTIME FOR MOOD 02/02 completed Not Available Not Available Not Available cholecalc iferol (vitamin D3) 50 mcg (2,000 unit) capsule TAKE 1 CAPSULE BY MOUTH EVERY DAY FOR VITAMIN D DEFICIEN CY 2024 active taking calc/vit d combo Not Available Not Available Not Available venlafaxi ne ER 225 mg tablet,ex tended release 24 hr TAKE 1 TABLET BY MOUTH EVERY DAY IN THE MORNING 02/02 completed Not Available Not Available Not Available Invega Sustenna 234 mg/1.5 mL intramusc ular syringe INJECT 1 SYRINGE INTRAMUS CULARLY EVERY FOUR WEEKS 03/01 completed Not Available Not Available Not Available guanfacin e ER 1 mg tablet,ex tended release 24 hr TAKE 1 TABLET BY MOUTH EVERY DAY active Not Available Not Available No t Available Gavilax 17 gram/dose oral powder MIX 17 GRAMS DIRECTED AND TAKE ONCE DAILY NEEDED FOR CONSTIPA TION 09/10 completed Not Available Not Available Not Available Metamucil Fiber (aspartam e) 3.4 gram oral powder packet TAKE 1 PACKET BY MOUTH EVERY DAY 02/10 completed Not Available Not Available Not Available OneTouch Verio test strips USE TO CHECK BLOOD SUGAR 3 TIMES A DAY DIRECTED active Not Available Not Available No t Available Breo Ellipta 100 mcg-25 mcg/dose powder for inhalatio n INHALE 1 PUFF BY MOUTH EVERY DAY 03/01 completed Not Available Not Available Not Available cyanocoba edouard (vit B-12) 500 mcg disintegr ating tablet,arshad blingual PLACE 1 TABLET (500 MCG) UNDER THE TONGUE AND ALLOW TO DISSOLVE DAILY 02/10 completed Not Available Not Available Not Available OneTouch Verio Flex Meter USE DIRECTED TO TEST BLOOD SUGAR 5 TIMES DAILY DIRECTED active Not Available Not Available No t Available OneTouch Delica Plus Lancet 33 gauge USE TO CHECK BLOOD SUGAR 3 TIMES DAILY OR DIRECTED active Not Available Not Available No t Available Daily-Vit e (with folic acid) 400 mcg tablet TAKE 1 TABLET BY MOUTH EVERY DAY active Not Available Not Available No t Available Benadryl Allergy 50 mg tablet Take 1 tablet every day by oral route at bedtime. active per per [facility] d/c 05/02/25 Not Available Not Available Not Available Vitals Date Recorded Body height Body mass index (BMI) Body weight Heart rate Oxygen saturation Oxygen saturation in Arterial blood by Pulse oximetry Systolic And Diastolic Provider Name and Address Organization Details Last Updated DateTime 5 182.88 cm 30.5 kg/m2 885969. 28 g 94 /min 98 % 98 % 106/80 mm[Hg] Kacie Rondon CMA [facility] 5 10:48:56 Date Recorded Body height Body mass index (BMI) Body weight Heart rate Oxygen saturation Oxygen saturation in Arterial blood by Pulse oximetry Systolic And Diastolic Provider Name and Address Organization Details Last Updated DateTime 5 182.88 cm 28.5 kg/m2 78615.4 g 92 /min 98 % 98 % 108/80 mm[Hg] B[facility] 5 13:27:01 Date Recorded Body height Body mass index (BMI) Body weight Heart rate Oxygen saturation Oxygen saturation in Arterial blood by Pulse oximetry Systolic And Diastolic Provider Name and Address Organization Details Last Updated DateTime 5 182.88 cm 29.3 kg/m2 41328.6 5 g 83 /min 98 % 98 % 138/82 mm[Hg] BASSAM [facility] 11:54:01 Date Recorded Body height Body mass index (BMI) Body weight Heart rate Oxygen saturation Oxygen saturation in Arterial blood by Pulse oximetry Systolic And Diastolic Provider Name and Address Organization Details Last Updated DateTime 5 182.88 cm 28.4 kg/m2 29924.2 1 g 88 /min 98 % 98 % 136/78 mm[Hg] BASS[facility] 5 14:33:40 Date Recorded Body height Body mass index (BMI) Body weight Heart rate Oxygen saturation Oxygen saturation in Arterial blood by Pulse oximetry Systolic And Diastolic Provider Name and Address Organization Details Last Updated DateTime 5 176.53 cm 30 kg/m2 15189.1 3 g 83 /min 98 % 98 % 118/74 mm[Hg] Kandice Ava Banner 11:11:01 Social History Question Answer Notes LastModified by Organizat ion Details LastModified Time Tobacco Smoking Status Current Some Day Smoker NANDA FALL [address] [place] [address], [phone], [facility] 09/10/2024 10:59:26 Do You Have An Advance Directive? Yes Mother Information not available 09/10/2024 Are You Blind Or Do You Have Difficulty Seeing? No Readers, Due For Visit [email or web address] Information not available 09/10/2024 Is Blood Transfusion Acceptable In An Emergency? No Information not available 06/03/2025 What Is Your Level Of Caffeine Consumption? None Information not available 09/10/2024 Are You A Caregiver? No Information not available 09/10/2024 Are You Deaf Or Do You Have Serious Difficulty Hearing? Yes Information not available 09/10/2024 What Type Of Diet Are You Following? REGULAR Information not available 09/10/2024 What Is The Highest Grade Or Level Of School You Have Completed Or The Highest Degree You Have Received? [id number] Information not available 09/10/2024 How Many Days Of Moderate To Strenuous Exercise, Like A Brisk Walk, Did You Do In The Last 7 Days? -1 Information not available 09/10/2024 Have There Been Any Changes To Your Family Or Social Situation? Yes Was In Correction, Now Living In [facility] Information not available 09/10/2024 Are There Any Guns Present In Your Home? No Information not available 09/10/2024 Which Of Your Hands Is Dominant? Right Information not available 09/10/2024 Tobacco Use (smoking, Smokeless Tobacco) Yes Information not available 06/03/2025 Date Of Tobacco Screen 06/03/2025 Information not available 06/03/2025 How Long Have You Lived There? 6 Yrs Information not available 09/10/2024 What Was The Date Of Your Most Recent Tobacco Screening? 06/03/2025 Information not available 06/03/2025 How Many Children Do You Have? 0 Information not available 09/10/2024 What Is Your Current Pack Years? 20-29packyea rs Information not available 09/10/2024 Do You Have Any Pets? No Information not available 09/10/2024 What Is Your Relationship Status? Information not available 09/10/2024 Do You Use Your Seat Belt Or Car Seat Routinely? Yes Information not available 09/10/2024 Are You Sexually Active? No Information not available 09/10/2024 Do You Have Smoke And Carbon Monoxide Detectors In Your Home? Yes Information not available 09/10/2024 At What Age Did You Start Smoking Tobacco? 16 Information not available 09/10/2024 Are There Any Smokers In Your House? Yes Information not available 09/10/2024 How Much Tobacco Do You Smoke? 1 PPW Less Than 1 Ppw Information not available 09/10/2024 Do You Participate In Social Media? No Information not available 09/10/2024 Do You Use Sunscreen Routinely? No Information not available 09/10/2024 Has Tobacco Cessation Counseling Been Provided? No Information not available 09/10/2024 How Many Years Have You Smoked Tobacco? 40 Information not available 09/10/2024 Do You Have Difficulty Walking Or Climbing Stairs? Yes Wearing Boot At Todays Visit Information not available 09/10/2024 Do You Have Any Dietary Restrictions? No Information not available 09/10/2024 Sex: Unknown Functional Status Question Answer Note LastModified by [employer] ion Details LastModified Time Do you use any illicit or recreational drugs? No Information not available 09/10/2024 Do you or have you ever used any other forms of tobacco or nicotine? No Information not available 09/10/2024 What is your level of alcohol consumption? None Information not available 09/10/2024 Are you able to walk independently without assistance or assistive devices? YESWOREST Information not available 09/10/2024 Do you have difficulty doing errands alone? Yes Information not available 09/10/2024 Do you have difficulty dressing, bathing, grooming, or toileting? No Information not available 09/10/2024 What is your exercise level? None Information not available 09/10/2024 Mental Status Question Answer Note LastModified by Organizat ion Details LastModified Time Do you feel stressed (tense, restless, nervous, or anxious, or unable to sleep at night)? [id number] meds don't help, lays in bed all day Information not available 09/10/2024 Do you have difficulty concentrating, remembering or making decisions? No Information not available 09/10/2024 Family History Relationship Description Onset Age of this Age Resolved Age Notes LastModified by Organization Details LastModified Time Mother Diabetes mellitus Not available 2024 09:13:24 Mother Kidney disease Not available 2024 09:13:35 Mother Heart disease Not available 2024 09:13:51 Father Heart disease Not available 2024 09:13:51 Medical History No medical history recorded. Immunizations Vaccine Type Date Status Note Provider Nam e and Address Organization Details Recorded Time Influenza, split virus, trivalent, preservative 5 completed Not Available [facility] 06/03/2025 10:50:41 COVID-19, mRNA, LNP-S, PF, 100 mcg/0.5mL dose or 50 mcg/0.25mL dose 2 completed Not Available [facility] 06/03/2025 10:50:41 COVID-19, mRNA, LNP-S, PF, 100 mcg/0.5mL dose or 50 mcg/0.25mL dose 1 completed Not Available [facility] 06/03/2025 10:50:41 Influenza, split virus, quadrivalent, PF 4 completed Not Available [facility] 06/03/2025 10:50:41 HepB-CpG 4 completed Not Available [facility] 06/03/2025 10:50:41 Influenza, recombinant, trivalent, PF 4 completed Not Available [facility] 06/03/2025 10:50:41 Pneumococcal conjugate PCV20, polysaccharide [id number] conjugate, adjuvant, PF 2 completed Not Available [facility] 06/03/2025 10:50:41 HepB-CpG 4 completed Not Available [facility] 06/03/2025 10:50:41 Influenza, split virus, trivalent, PF 9 completed Not Available [facility] 06/03/2025 10:50:41 Influenza, split virus, quadrivalent, PF 6 completed Not Available [facility] 06/03/2025 10:50:41 Influenza, split virus, quadrivalent, PF 6 completed Not Available [facility] 06/03/2025 10:50:41 Tdap 4 completed Not Available [facility] 06/03/2025 10:50:41 Influenza, split virus, quadrivalent, PF 2 completed Not Available [facility] 06/03/2025 10:50:41 Past Encounters Encounter ID Performer Location Encounter Start Date Encounter Closed Date Diagnosis/Indication Diagnosis SNOMED-CT Code Diagnosis ICD10 Code Diagnosis IMO Codes Diagnosis Note [id number] NANDA [facility] [address] [place] [address] [address] [place] [address] 09/10/2024 10:36:11 09/10/2024 11:15:33 Chronic low back pain 739356904 M54.50 States dailyUses ibuprofen with minimal results History of alcohol abuse 972682150 F10.10 Sober 20 yearsCongr atulated on effort Schizoaffe ctive schizophrenia 132223103 F25.0 No recent mary ann or severe depression PHQ-9 positive today, score 21Managed by psych, sees a therapist Suicidal thoughts 414638 6 R45.851 In the past, none for a long timeIs frequently monitored, lives in group homeSees a therapist monthly Type 2 oswald betes mellitus 42609887 E11.9 Taking med as prescribed Just released from halfway, likely DM well controlled while admittedWi ll check A1c at chronic visit Benign pro static hyperplasia 923120550 N40.1 Currently having issue urinatingT aking meds for BPHManaged by urology, recommend contacting their office with this concern 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 837222706 I25.810 Pt reports triple bypassNo current symptoms Fracture of ankle 816606 01 S82.61XS Fx occurred about 2 mos agoPt appears to be healing slowly but reports it was a bad fxStaff [place] [facility] Body mass index 30+ - obesity 452116931 Z68.30 Pt does not cook for himselfSpe nds most of his day in bedRecomme nd even short walks when he gets out of the boot Chronic ob structive pulmonary disease 26147624 J44.9 Takes meds as prescribed Well controlled at this time Hypercholesterolemia 136 00840 E78.00 No changes in diet, very inactive along with current RLL injuryPt taking statin as prescribed Will draw lipid panel at [facility] and f/u on results PRN Hypertensive disorder 38 755797 I10 Pt denies chest pain, shortness of breath, headache, vision changes or edemaUsing med as prescribed BP is at goal todayWell controlled Patient ne w to provider [id number] 40819 Z76.89 Medical, [facility] and [facility] Bilateral hearing loss 06989819 H91.93 Pt states he has BL hearing lossWould like testing [id number] NANDA [facility] [address] [place] [id number] 02/10/2025 13:12:50 02/10/2025 15:15:25 Post-discharge follow-up [id number] Z09 [id number] Pt [facility] worsening depression then transferre d to [facility] for rehab for a right ankle injury and NWB status. He was discharged on 01/27/2025 .[facility] programHe was back for about 1 week and had f/u with this office then had a syncopal episode on his way into the office Clinical finding [id number] 03 Z74.09 Z78.9 [id number] Pt reports poor mobility due to foot neuropathy , right calf pain, back painHas not seen spine clinic for spine pain, will referCalf pain likely due to extended use of boot on RLE, Well score -2Will order diabetic shoes and inserts for foot neuropathy Seen in department 06606 1009 Z76.89 [id number] Pt had syncopal episode getting out of carNo findings on ED work upNo additional testing recommende d Syncope and collapse 309 409573 R55 87886 Pt reports syncope when going from sitting to standing almost dailyDenie s symptoms prior to episodesLi jossue due to restrained BP from treatment following 3 WA's, BP's have been lowRecomme nd f/u with cardiology Postural dizziness 57135 7008 R42 516664 A1c, FSBS checked, normal rangeLikel y caused by HTN medsRecomm ended f/u with cardiology to discuss Chronic low back pain 27 6549651 M54.50 States dailyUses ibuprofen with minimal results Type 2 oswald betes mellitus 53510127 E11.9 Taking med as prescribed Just released from halfway, likely DM well controlled while admittedFS BS today is 104. A1c is 5.6Glucose not likely the cause of dizziness Pain of right calf 49647 13660 277943 M79.661 14237103 Wells score -2R calf 39.5 cm, L calf 38.[id number] [facility] [address] [place] [address] [address] [place] [id number] 05/11/2025 11:31:41 05/11/2025 13:04:03 Post-discharge follow-up [id number] Z09 [id number] He was discharged back to his [facility] follow-up scheduled with therapist Suicidal thoughts 925989 6 R45.851 [id number] Denies thoughts of self-harm todayPatie nt reports he still is afraid of dyingDid not discuss medical follow-ups today given his concern for his health, will send urology referralWi ll address medical concerns in 3 weeks at his CPE and refer as recommende d Acute rete ntion of urine 416780488 R33.8 [id number] Transferre d, seen at [facility] during psych admissionU rology follow-up recommende d Lesion of liver 76419852 0 K76.9 [id number] f/u recommende dSeen at [facility] [id number] [facility]AN[facility] [address] [place] [address] [address] [place] [id number] 05/30/2025 14:20:41 05/30/2025 15:14:04 Post-discharge follow-up [id number] Z09 [id number] He was discharged back to his [facility] follow-up scheduled with therapist, recommend increase frequency to twice monthly if possiblePt does not appear to have improved or had any benefit from his admission History of psychiatric disorder 531525444 Z86.59 [id number] Maintains fear of dying and notes he may harm himself because of itDiscusse d this reasoning didn't make senseGave pt assignment to do positive things before CPE in 4 days, staff will assist him [id number] [facility]ANDA [facility] [address] [place] [address] [address] [place] [address] 06/03/2025 10:49:37 06/03/2025 11:55:30 General examination of patient 478558644 Z00.00 [id number] Patient should discuss medical decisions with Health Care Proxy. Recommende d screenings included colonoscop y screening age 45, earlier based on family history/ri sk factors; The USPSTF recommends one time screening for hepatitis C virus (HCV) infection in adults aged 18 to 79 years. Recommend annual low-dose CT scan screening for high-risk individual s ages 50 to 80 years with 20 pack-year history of smoking and current smoker or quit within past 15 years. Reviewed vaccines and current recommenda tions. Basic health topics include aerobic exercise, importance of healthy/ba lanced diet and minimizing caffeine and alcohol. Administra tion of pneumococcal vaccine 64576981 Z23 PCV 20 given 08/12/2022 Administra tion of diphtheria, pertussis, and tetanus vaccine 388454284 Z23 Tdap booster 09/17/2023 Screening for malignant neoplasm of colon 369111863 Z12.11 Pt reports recommende d 1 yr f/uReports he has not had a colonoscop y in 2 yearsWill refer. Pt reports done at [facility] Viral screening 00687511 4 Z11.59 The USPSTF recommends one time screening for hepatitis C virus (HCV) infection in adults aged 18 to 79 years. Varicella vaccination 68 058722 Z23 Pt agrees to vaccine today Smoking mo nitoring status 070440253 Z87.891 Recommend annual low-dose CT scan screening for high-risk individual s ages 50 to 80 years with 20 pack-year history of smoking and current smoker or quit within past 15 years. I have used a decision aid to share decision making with the patient about interventi ons to reduce the risk of dying from lung cancer, including quitting smoking and annual lung cancer screening. The patient is eligible for screening based on age, smoking history, and the absence of signs of symptoms of lung cancer. We discussed the potential harms of screening, including: false positives, follow-up diagnostic testing, over treatment, and total radiation exposure. We provided the patient informatio n about the importance of adherence to annual LDCT screening, the impact of comorbidit ies, and the ability/wi llingness to undergo diagnosis and treatment. After considerin g the patients unique circumstan kaleigh, and the pros and cons of the alternativ es, the patient has decided to be screened. Advance care planning [address] [facility] Screening for malignant neoplasm of prostate 319630868 Z12.5 For men aged 55 to 69 years, the decision to undergo periodic prostate-s pecific antigen (PSA)-base d screening for prostate cancer should be an individual one. Before deciding whether to be screened, men should have an opportunit y to discuss the potential benefits and harms of screening with their clinician and to incorporat e their values and preference s in the decision. After considerin g the patients unique circumstan kaleigh, and the pros and cons of the alternativ es, the patient has decided to be screened. Depression screening 171 541575 Z13.31 0805616644 PHQ 9 Score: 26Result: positiveFo llow up plan: Currently has therapist, was seen yesterday. Taking meds as prescribed . Two recent hospitaliz ations for SI, not feeling safe. Influenza vaccine needed 7318309116 106 Z23 Patient recommende d to go to their local pharmacy to have influenza vaccine administer ed. Discussed importance of influenza vaccine due to the patient's risk of contractin g the disease. A handout was offered to enhance understand ing of the effects and side effects of the vaccine. Suicidal thoughts 641659 6 R45.851 Denies thoughts of self-harm todayPatie nt reports he still is afraid of dyingTwo recent hospitaliz ations, recent visit with therapist Schizoaffe ctive schizophrenia 929918751 F25.0 No recent mary ann or severe depression PHQ-9 positive today, score 26Meds managed by psych, sees a therapist History of alcohol abuse 423747784 F10.10 Sober over 20 yearsCongr atulated on effort Hypertensive disorder 38 430804 I10 Pt denies chest pain, shortness of breath, headache, vision changes or edemaUsing med as prescribed BP is at goal todayWell controlled Hypercholesterolemia 136 96332 E78.00 No changes in dietPt taking statin as prescribed Will draw lipid panel and f/u on results PRN Type 2 oswald betes mellitus 57108646 E11.9 A1c 05/23/2025 was 5.8MAL orderedEye exam - overdueTak ing med as prescribed Well controlled Body mass index 30+ - obesity 451985606 Z68.30 Pt does not cook for himselfSpe nds most of his day in bedRecomme nd even short walks when he gets out of the boot Chronic low back pain 27 1935325 M54.50 States dailyUses ibuprofen with minimal results Chronic ob structive pulmonary disease 82183141 J44.9 Takes meds as prescribed Well controlled at this time Adult heal th examination 302834652 Z00.00 Positive s creening for depression on PHQ-9 (Patient Health Questionnaire 9) 9693944238 15496 Z13.31 5125334522 PHQ 9 Score: 26Result: positiveFo llow up plan: Currently has therapist, was seen yesterday. Taking meds as prescribed . Two recent hospitaliz ations for SI, not feeling safe. Laboratory test 71613171 Z01.89 [id number] Pt would like blood work today Health Concerns Section Related Observation LastModified by Organization Detai ls LastModified Time None Recorded Concern Status LastModified by Organization Details LastModified Time None Recorded Advance Directives Directive Y: mother Payers Insurance Date Sequence Insurance Name Policy Number Policy Morris Covered Member ID Morris Member ID Guarantor Name 05/05/2025 3 [place] [facility] Clifton Brink [id number] Clifton Brink 02/10/2025 2 [place] [employer] Clifton Brink [id number] Clifton Brink 02/10/2025 3 [employer] - TOGETHER (MEDICAID HMO) [id number] Clifton Brink [id number] Clifton Brink 06/03/2025 1 [employer] - ONE CARE (MEDICARE - MEDICAID REPLACEMENT) [id number] Clifton Brink [id number] Clifton Brink Notes Date Note Type Note Provider Name and Address Organization Details Recorded Time 09/10/2024 text/html Clifton presents to the clinic today to establish care with this practice. His right leg is in a boot and he is using a cane. He [place] [facility]. Health history sheet was submitted, but it was blank. Covid:Flu:Tdap (or Td):Pneumovax:Shingl es:Smoking status:Date of smoking screen:Hep C screen:Colonoscopy:H tha Proxy (everyone over 18) - None on file Janki loza do [address] [place], [address], [facility] 09/16/2024 10:14:08 02/10/2025 text/html ROS as noted in the HPI Clifton presents to the clinic today for follow up on an admission to the [facility] then short term rehab in [place] with concern for mobility/concerns w/ ADL's and ankle pain. Additionally, on his way to his appointment for TCM in this office 3 days ago when he had a syncopal episode and was evaluated in the ED. He presents with Jai who works at the [employer] in [place] where Clifton resides. He presents using a walker and wearing a boot on the RLE. He notes a lot of pain in his ankle. He had a plate placed in the ankle 8 mos ago. Staff reports they are working on trying to reduce the time he wears the boot and notes he gets along just fine in the residential home. Clifton states he has difficulty getting around due to lower back pain. He states he had PT while he was admitted to the facility in [place]. He notes he has neuropathy in his feet. He has pain in the back of his right calf that has been present for about 1 month. He reports he is getting dizzy spells often. I noted his BP, though in range, is low and he states it was 93/54 last night. I recommend he f/u with cardiology to discuss his blood pressure management. We will investigate his FSBS and A1c today. Latasha Harris MD [address] [place], [address], [facility] 02/11/2025 15:55:22 05/11/2025 text/html ROS as noted in the HPI Clifton presents to the clinic today with Joaquin, a counselor for [facility] for follow-up on a recent admission to the [facility]. He was admitted through the emergency department where he was being seen for a complaint of chest pain. He received a psych consult and then was admitted with feelings he was going to was focused on this for several weeks. He also acknowledged command auditory hallucinations and thoughts of self-harm or harm to others. He lives in [place] [facility] managed by [facility].Date(s) of admission/discharge: Admitted 03/19/25, discharged 05/02/25[facility] Diagnoses: somatic delusions, thoughts he was going to , SIDischarge recommendations for outpatient follow-up: PCP, psych appt w/ Dr Gilman and Abena Beauchamp was on 05/06/25Discharge status (were they discharged with services): d/c to group homePt was seen at [facility] during his psych inpatient stay for flank pain and urinary retention, d/c with instructions to follow up with urologist, CT scan showed a liver lesion for which they recommended follow-up with ultrasound/MRI in 6 months for further evaluationMedication list has been reviewed and updated: yes, reconciled by [place] with pt home health nurseTCM appt scheduled (date): 05/11/25 He says he was feeling good after his discharge but today is is very depressed again and isn't eating or sleeping at this time. He denies thoughts of self harm or harming others. He is upset that he lost his job about 20 years ago and is still having a hard time dealing with it. He states he has a hard time getting out of bed every day. When asked what he is doing with his free time he states nothing . Following on to say that he used to have a speed boat and a camper and used to enjoy doing these things. States he no longer has either and does not to do it himself. We discussed strategies for staying busy doing just about anything. Joaquin, his counselor, said they have discussed this before and suggested that perhaps he begin building models. Clifton has done this in the past and has eventually just destroyed the models, which was suggested was okay, as he built them and they can help him alleviate some of his frustration and anger. Positive reasoning is very circular and we discussed ways for him to stay busy and when asked if the end of the conversation when he was going to do he continually repeated I do not know . He continues to repeat that he is afraid of dying. We discussed the fact that eventually everybody was going to and we do not always know when this is going to happen. I assured him that given his medical conditions he does see a doctor more than the average person and that this provides more frequent assessments gives us the opportunity to identify any problems why they are still fairly new. This does not seem to give Clifton any comfort though he agreed. I informed Clifton he would be seen for his CPE in less than a month and that I wanted him to tell me what he has been doing to occupy his time. Latasha Harris MD [address] [place] [address] [place], [address], [facility] 05/24/2025 13:14:45 06/03/2025 text/html Clifton presents to clinic today for his annual CPE Have you fallen in the past 12 months? no Latsaha Harris MD [address] [place] [address] [place], [address], [facility] 06/06/2025 21:26:46
--- OUTSIDE RECORDS SUMMARY | 2025-06-09 19:53 | XMS_ITS | Encounter Summary ---
Author Organization [facility] Address [address] [place] [address] Care Team Providers Care Electrical And Instrumentation Mechanic Name Role Phone Gabriel Sykes MD Primary Care Provider Susana Nicholas MD Primary Care Provider Reason for Visit * Reason Comments E-prescribing Refill Request Encounter Details Date Type Department Care Team ([facility] st Contact Info) Description 09/29/2017 Refill [facility] [address] [place] [phone] Juventino Kim MD [address] [address] E-prescribing Refill Request Social History Tobacco Use [...] on filedocumented in this encounter Care Teams Electrical And Instrumentation Mechanic Relationship Specialty Start Date End Date Gabriel Sykes MD PCP - General Family Medicine 12/03/13 05/24/22 Susana Ashton MD [address] [place] [address] PCP - General Family Medicine 05/25/22 documented as of this encounter
--- OUTSIDE RECORDS SUMMARY | 2025-06-09 19:53 | XMS_ITS | Encounter Summary ---
Author Organization [facility] Address [address] [place] [address] Care Team Providers Care Herd Tester Name Role Phone Gabriel Sykes MD Primary Care Provider Susana Nicholas MD Primary Care Provider Reason for Visit * Reason Comments E-prescribing Refill Request Encounter Details Date Type Department Care Team ([facility] st Contact Info) Description 06/15/2018 Refill [facility] [address] [place] [phone] Juventino Kim MD [address] [address] E-prescribing Refill Request Social History Tobacco Use [...] on filedocumented in this encounter Care Teams Herd Tester Relationship Specialty Start Date End Date Gabriel Sykes MD PCP - General Family Medicine 12/03/13 05/24/22 Susana Ashton MD [address] [place] [address] PCP - General Family Medicine 05/25/22 documented as of this encounter
--- NOTE | 2025-06-10 02:50 | PC.ADMIT ---
Pt is a 59 yr old male admitted to unit after referral from CARE Team. Pt was BIBA from [facility]. Pt arrived on unit at 1828 on 06/09/2025. Skin check unremarkable, other than multiple scars on back legs, no open areas. Legal status: CV. 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 Pt is on clozaril and that is pending in MAR for inhouse to verify. Pt states that he has been a smoker for 43 years but that he currently only smokes 3 cigarettes per day. Refused NRT. Pt denies etoh or substance uses. Pt precipitant to admission are that he lives in a detention and his monthly amount has increased from $400 to $1056, his and he have been and the process has taken the last 10 years, also his son and he have been having issues and he does not talk to him anymore; all of this is causing increased depression and anxiety. Pt has been having increasing thoughts of SI. Pt presents as disheveled and dressed in hospital attire. Thought process is linear and organized, pleasant and cooperative throughout assessment. Pt reports right foot fracture and has a steel plate in that foot. Pt also reported weakness in left leg d/t veins removed for CABG years back. These both result in what he feels is unsteadiness in his gait and he has been provided a walker while here. Provider clinical application specialist notified of admission and orders obtained. Pt placed on 5 minute safety checks d/t walker use. Pt reports feeling safe here in the hospital.
[2025-06-10 08:00] VITALS: BP 94/58; PULSE 72; RESP 16; TEMP 36.7; O2SAT 99
--- NOTE | 2025-06-10 08:12 | HO.PM.IMCN ---
History of Present Illness Data of Consult Service Date: 06/10/25 Primary Care Provider: Unknown Physician HPI Reason for consult: Medical management 59-year-old male with a past medical history of bipolar disorder, psychosis anxiety, depression, BPH, type 2 diabetes, chronic pain disorder, coronary artery disease, hyperlipidemia, hypertension, peripheral neuropathy, schizoaffective disorder, history of stroke, sleep apnea, history of substance abuse presented to [facility] ED from his intermediate with increased depression and expressing suicide ideation. His lab work was without leukocytosis or critical anemia, mild metabolic acidosis was corrected with IV fluids, he was given Ativan in the emergency department due to significant anxiety. EKG with normal sinus rhythm. Head CT with no intracranial abnormality. Liver enzymes without evidence of liver injury, renal function within normal limits. Viral panel within normal limits. Urinalysis negative for infection. On exam he has no medical concerns. Reports that he feels well. Ambulating with a walker due to a right foot injury requiring plates 6 months ago. Patient is followed by Cardiology, Urology, and orthopedics outpatient. Review of Systems Review of Systems: Denies any shortness of breath, chest pain, palpitations, dizziness, lightheadedness, headaches, dysuria, abdominal pain or discomfort, nausea, vomiting or diarrhea. Denies chills, body aches, muscle aches, fatigue or weight loss. Reports pain in his right foot PMFSH Social History Household Members: Other Household Members Other:: intermediate residents Housing: Other Housing Other:: intermediate Do you presently have visiting nurse or other home services: Yes (innovive) Patient Tobacco Use Status: Former Tobacco user Tobacco use type: Cigarette Cigarettes Per Day: 3 Years Smoked: 43 Smoked in Last 30 Days: Yes e-Cigarette/Vaping Use: Never Used Patient Interested in Nicotine Replacement: No Patient Given Instructions on How to Stop Smoking: Yes Date Education Initiated: 06/09/25 Second Hand Smoke Exposure: No Currently Displaying Signs/Symptoms of Drug Intoxication Withdrawal: No Have you been hit, kicked, punched, or otherwise hurt by someone within the past year? If so, by whom?: No Do you feel safe in your current relationship?: No Current Relationship Is there a partner from a previous relationship who is making you feel unsafe now?: No Are you made to feel afraid or neglected: No Advance Directives: No Advance Directives Information Provided: No Advance Directives on File: No Do you have thoughts of harming others: None Do you have a plan to hurt others: No Plan Recently lost weight without trying: No How much weight loss: Not applicable Eating poorly because of decreased appetite: No Nutrition screen score: 0 Nutrition Risks: No Nutritional Risk service: No Sexual orientation: Straight/Heterosexual Meds Allergies Allergy/AdvReac Type Severity Reaction Status Date / Time bupropion Allergy Rash Verified 06/09/25 19:07 haloperidol (From Haldol) Allergy Rash Verified 06/09/25 19:07 lactose Allergy Gastrointestinal Verified 06/09/25 19:07 Upset peanut Allergy Anaphylaxis Verified 06/09/25 19:07 ziprasidone Allergy Rash Verified 06/09/25 19:07 Active Medications: Current Medications Acetaminophen (Acetaminophen 325 Mg Tablet) 650 mg PO Q6H PRN PRN Reason: Headache/Pain, Scale 1-10 Al Hydroxide/Mg Hydroxide (Magnesium Hydrox/Alum Hydrox 30 Ml Oral.Susp) 30 ml PO Q6H PRN PRN Reason: Heartburn/Nausea Amphetamine/Dextroamphetamine (Dextroamphetamine/Amphetamine Xr 10 Mg Cap.Er.24h) 20 mg PO DAILY [facility] Aspirin (Aspirin Enteric Coated 81 Mg Tablet.) 81 mg PO DAILY [facility] Atorvastatin Calcium (Atorvastatin Calcium 40 Mg Tablet) 40 mg PO BEDTIME [facility] Last Admin: 06/10/25 00:12 Dose: 40 mg Calcium Carbonate/Cholecalciferol (Calcium + Vitamin D 250 Mg Tablet) 500 mg PO BID [facility] Clozapine (Clozapine 25 Mg Tablet) 50 mg PO BEDTIME [facility] Clozapine (Clozapine 100 Mg Tablet) 300 mg PO BEDTIME [facility] Docusate Sodium (Docusate Sodium 100 Mg Capsule) 100 mg PO BID [facility] Last Admin: 06/10/25 00:12 Dose: 100 mg Duloxetine HCl (Duloxetine Hcl 60 Mg Capsule.Dr) 60 mg PO DAILY [facility] Famotidine (Famotidine 20 Mg Tablet) 20 mg PO BID [facility] Last Admin: 06/10/25 00:12 Dose: 20 mg Guanfacine HCl (Guanfacine Hcl Er 1 Mg Tab.Er.24h) 1 mg PO DAILY [facility] Hydroxyzine HCl (Hydroxyzine Hcl 25 Mg Tablet) 25 mg PO Q6H PRN PRN Reason: mild anxiety Influenza Virus Vaccine (Flu Vacc [id number](6mo Up)/Pf 0.5 Ml Syringe) 0.5 ml IM .ONCE ONE Stop: 06/10/25 09:01 Lorazepam (Lorazepam 1 Mg Tablet) 1 mg PO BEDTIME PRN PRN Reason: Insomnia Magnesium Hydroxide (Milk Of Magnesia 30 Ml Oral.Susp) 30 ml PO DAILY PRN PRN Reason: Constipation Metoprolol Succinate (Metoprolol Succinate Er 25 Mg Tab.Er.24h) 75 mg PO DAILY [facility]; Protocol Multivitamins/Vitamin C (Multivitamin Tablet) 1 tab PO DAILY [facility] Nicotine Polacrilex (Nicotine Polacrilex 2 Mg Gum) 2 mg BUCCAL Q2H PRN PRN Reason: Nicotine Cravings Olanzapine (Olanzapine 5 Mg Tablet) 5 mg PO BID PRN PRN Reason: agitation Sertraline HCl (Sertraline Hcl 100 Mg Tablet) 100 mg PO DAILY [facility] Sucralfate (Sucralfate 1 Gm Tablet) 1 gm PO QIDACHS ROMANA Tamsulosin HCl (Tamsulosin Hcl 0.4 Mg Capsule) 0.4 mg PO BEDTIME [facility] Last Admin: 06/10/25 00:12 Dose: 0.4 mg Trazodone HCl (Trazodone Hcl 50 Mg Tablet) 50 mg PO BEDTIME MRX1 PRN PRN Reason: Insomnia Last Admin: 06/10/25 00:12 Dose: 50 mg Trazodone HCl (Trazodone Hcl 100 Mg Tablet) 100 mg PO BEDTIME ROMANA Last Admin: 06/10/25 00:12 Dose: 100 mg Venlafaxine HCl (Venlafaxine Hcl Er 75 Mg Cap.Er.24h) 75 mg PO DAILY [facility] Vitamin D (Cholecalciferol (Vitamin D3) 25 Mcg Tablet) 50 mcg PO DAILY [facility] Home Medications ?Medication ?Instructions ?Recorded ?Confirmed ?Last Taken ?Type aspirin 81 mg tablet,delayed 81 mg PO DAILY 06/09/25 06/09/25 06/08/25 History release atorvastatin 40 mg tablet 40 mg PO BEDTIME cholesterol 06/09/25 06/09/25 06/08/25 History calcium 500 mg (as 2 tab PO BID 06/09/25 06/09/25 Unknown History carbonate)-vitamin D3 5 mcg (200 unit) tablet (Oyster Shell Calcium-Vitamin D3) cholecalciferol (vitamin D3) 50 50 mcg PO DAILY 06/09/25 06/09/25 06/08/25 History mcg (2,000 unit) capsule clozapine 100 mg tablet 300 mg PO BEDTIME 06/09/25 06/09/25 06/08/25 History clozapine 50 mg tablet 50 mg PO BEDTIME 06/09/25 06/09/25 06/08/25 History dextroamphetamine-amphetamine ER 2 cap PO DAILY 06/09/25 06/09/25 06/08/25 History 10 mg 24hr capsule,extend release docusate sodium 100 mg capsule 100 mg PO BID 06/09/25 06/09/25 06/08/25 History duloxetine 60 mg capsule,delayed 60 mg PO DAILY 06/09/25 06/09/25 06/08/25 History release famotidine 20 mg tablet 20 mg PO BID acid reflux 06/09/25 06/09/25 Unknown History guanfacine 1 mg tablet,extended 1 mg PO DAILY 06/09/25 06/09/25 Unknown History release 24 hr ibuprofen 800 mg tablet 800 mg PO Q8H PRN pain 06/09/25 06/09/25 Unknown History lorazepam 1 mg tablet 1 mg PO BEDTIME PRN insomnia 06/09/25 06/09/25 06/08/25 History metoprolol succinate 25 mg 75 mg PO DAILY 06/09/25 06/09/25 Unknown History tablet,extended release 24 hr multivitamin with folic acid 400 1 tab PO DAILY 06/09/25 06/09/25 06/08/25 History mcg tablet (Daily-Avtar (with folic acid)) sertraline 100 mg tablet 100 mg PO DAILY 06/09/25 06/09/25 06/08/25 History sucralfate 1 gram tablet 1 g PO QID 06/09/25 06/09/25 Unknown History tamsulosin 0.4 mg capsule 0.4 mg PO BEDTIME 06/09/25 06/09/25 06/03/25 History trazodone 100 mg tablet 100 mg PO BEDTIME 06/09/25 06/09/25 06/08/25 History venlafaxine 75 mg capsule,extended 75 mg PO QAM 06/09/25 06/09/25 06/08/25 History release 24 hr vitamin B complex 1 cap PO DAILY 06/09/25 06/09/25 06/08/25 History Physical Exam Vital Signs and Narrative: Vital Signs: Last Vital Signs Temp 97.1 F 06/09/25 19:25 Pulse 80 06/09/25 19:25 Resp 16 06/09/25 19:25 BP 141/63 H 06/09/25 19:25 Pulse Ox 100 06/09/25 19:25 O2 Del Method Room Air 06/09/25 19:25 BMI result Body Mass Index 27.6 CONST: Alert and oriented, in NAD. Well nourished HEENT: Normocephalic, atraumatic, MMM, Eyes clear, Neck supple RESP: Lungs clear, RRR even and regular HEART:,RRR, S1, S2. No edema GI:Abdomen Soft NT, ND. + BS times four :Deferred SKIN: Warm dry and intact, no visible lesions or rashes NEURO:CN II-XII Intact bilaterally, Sensation intact. Speech clear PSYCH: Normal affect Extremities: Patient ambulatory with a walker, steady gait Results Labs 06/10/25 08:07 Assessment and Plan (1) Coronary artery disease: Status: Acute Plan 59-year-old male with medical history listed below presented to the ED with increased depression and suicidal ideation. Now admitted to inpatient psych for mood stabilization. Bipolar disorder/Psychosis/Anxiety/Depression/schizoaffective disorder/history of substance use disorder Treatment per psychiatric team BPH Followed by urology outpatient Continue Flomax Type 2 diabetes Diet controlled Recent A1c 5.6 CAD/HLD/HTN/patient with history of a stroke Continue aspirin, atorvastatin, and metoprolol Follows cardiology outpatient History of sleep apnea Deny use of CPAP Chronic pain disorder/peripheral neuropathy/right foot fracture Continue with duloxetine Ambulating with a walker Follows Orthopedics outpatient Thank you for allowing me to participate in the care of this patient. Will follow with you, please notify medical provider with any changes in condition or concerns.
[2025-06-10 08:48] LABS: Neut%MD 68.8 %; WBCANC 8.3 X10*3/uL
[2025-06-10] MEDS: guanFACINE HCl ER 1 MG TAB.ER.24H PO (09:09)
[2025-06-10] MEDS: Aspirin Enteric Coated 81 MG TABLET.DR PO (09:10)
[2025-06-10] MEDS: Calcium + Vitamin D 250 MG TABLET 500 MG PO ×2 (09:10→20:37)
[2025-06-10] MEDS: Dextroamphetamine/Amphetamine XR 10 MG CAP.ER.24H 20 MG PO (09:11)
[2025-06-10] MEDS: Venlafaxine HCl ER 75 MG CAP.ER.24H PO (09:11)
[2025-06-10 09:12] VITALS: BP 98/65; PULSE 72
[2025-06-10] MEDS: Metoprolol Succinate ER 25 MG TAB.ER.24H 75 MG PO (09:12)
[2025-06-10 09:22] LABS: Alanine Aminotransferase 27 U/L (0-40); Albumin Level 4.7 g/dL (3.5-5.0); Alkaline Phosphatase 95 U/L (39-117); Anion Gap 14 (12-20); Aspartate Amino Transferase 20 U/L (5-37); Blood Urea Nitrogen 8 mg/dL (9-16); Calcium 9.5 mg/dL (8.4-10.2); Carbon Dioxide 23 mmol/L (22-29); Chloride 108 mmol/L (96-108); Cholesterol 159 mg/dL (<200); Creatinine Clr Calc Pharmacy 91.7; Estimated Glomerular Filt Rate > 60; HDL Cholesterol 27 mg/dL (>40); Potassium 3.9 mmol/L (3.3-5.1); Sodium 141 mmol/L (135-145); Total Protein 7.5 g/dL (6.5-8.0); Triglycerides 298 mg/dL (<150)
[2025-06-10] MEDS: Flu Vacc TS2025-26(6mo up)/PF 0.5 ML SYRINGE IM (11:10)
--- NOTE | 2025-06-10 12:01 | HO.PSYADMNOT ---
HPI Date of Service: 06/10/25 Sources of Information: patient interviewed, chart reviewed and crisis/core team assessment reviewed HPI Subjective Notes: Conditional Voluntary Narrative: Mr. Brink is a 59 y/o DWM with documented h/o schizophrenia, bipolar d/o, PTSD, KASSIE, sleep apnea, HTN, CAD, hyponatremia, peripheral neuropathy, 3 WA's s/p CABG, unsteady gait, and type II DM who was brought to the [facility] ED due to AH and SI. He was transferred to [facility] for tx of severe depression, SI and psychotic sx. CT head w/o contrast done at [facility] on 06/08/25- No acute intracranial abnormality. Small mucous retention cyst or polyp in R maxillary sinus, otherwise wnl. Labs at [facility] significant for mild hyponatremia (NA+ =[id number]). BMP otherwise essentially wnl. Lipase and CBC wnl. 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 He hasn't been able to work since then and is on disability. He has had R ankle pain since having surgery 6 months ago. Initially took oxycodone, which didn't help. Just taking Tylenol, which isn't helping. He resides at a nursing home and has a visiting nurse who comes 2x/day. He told his nurse that he felt unsafe and she called EMS. He reports that he had called EMS due to feeling unsafe multiple times. He reports having several psychiatric admissions in the past 10 yrs, most recently at [facility] ~1 month ago. He did ECT years ago, which was helpful but he did have some memory impairment. He would consider trying ECT again. He reports taking his medications consistently and has a VNA dispense his meds 2x/day. He doesn't know what medications he takes. Psychiatric ROS: Endorses depressed mood, SI without plan/intent, anhedonia, insomnia, low appetite, feelings of hopelessness/helplessness Endorses AH of a voice telling him I'm going to . Denies CAH to harm self/others. Denies VH. H/O delusions and paranoia Denies h/o violent ideation or violence Endorses flashbacks, nightmares, hypervigilance, sleep disturbance, persistent low mood, intrusive memories of traumatic events Worries a lot about his health Denies recent episodes of mary ann/hypomania Pt was started on the medications listed on the med list from [facility] last night, which included duloxetine, venlafaxine, sertraline, Adderall and clozapine. This automobile and property underwriter left a vm with pt's visiting nurse, outpatient psychiatrist to clarify his med list and spoke w/ his [facility] funeral home associate today, who faxed the list. Current Medication List (faxed from nursing home today) Clozaril 50 mg qhs Clozaril 300 mg 2x a day hs *Per external med rec, it looks like pt was rx'd 300 mg just at night Effexor XR 75 mg qam *per external med rec, it looks like pt is cross titrating from venlafaxine to sertraline, was previously on 225 mg qd diphenhydramine 50 mg qhs prn for insomna hydroxyzine 50 mg q 8 hrs prnfor anxiety sertraline 100 mg qd trazodone 100 mg qhs acetaminophen 975 mg bid ASA 81 mg qam budesonide-formoterol 2 inhalations qd Calcium-Vit D 500mg-5 mcg tabs, 2 tabs po bid docusate 100 mg bid folic acid 1 mg qam ibuprofen 800 mg q 8 hrs prn for pain lactase 9000 unit tablet tid magnesium oxide 400 mg bid metformin 500 mg qam methocarbamol 500 mg q 8 hrs for muscle pain metoprolol 50 mg bid MVI qd nitroglycerin 0.4 mg SL q 5 min prn for chest pain u pt 3 doses simethicone 80 mg 4x/day after meals and at hs sucralfate 1 g 4x/day before meals tamsulosin 0.8 mg qhs Vit B complex qam Vit D3 50 mcg qam Past Psychiatric History: Outpatient psychiatrist: Arsen Wall ([phone]) No current tx H/O multiple inpt psychiatric admissions in past 10 yrs, most recently at [facility] ~1 month ago H/O 1 suicide attempt by hanging ~10 yrs ago. His brother found him. Denies h/o violence or non-suicidal self harming behaviors ECT series years ago was helpful, can't recall where it was done. Had some memory impairment Pt doesn't know what meds he tried in the past According to his allergy list- bupropion, haldol and ziprasidone caused a rash Per Crisis Eval- pt has taken the following- Strattera 60 mg qd Klonopin 1 mg tid prn Depakote ER 500 mg Lunesta 2 mg qhs Prozac 20 mg qd Lamictal 25 mg qd Zyprexa 20 mg qd Invega Sustenna sertraline 200 mg qd trazodone 100 mg qd Cymbalta 60 mg qd Cogentin 0.5 mg bid Vistaril 50 mg q 6 hrs prn melatonin 3 mg qhs Adderall ER 20 mg qam lorazepam 1 mg qhs prn for anxiety venlafaxine ER 75 mg qd sertraline 100 mg qd duloxetine 60 mg qd trazodone 100 mg qhs guanfacine ER 1 mg qd Medical Evaluation Reviewed: Hospitalist Willi Pending COUNT INCLUDES THE [facility] Narrative: Unsteady gait HTN CAD Iron, Vit D, B12 def Type II DM H/O 3 MIs, s/p CABG around 10 yrs ago Peripheral neuropathy IBS Hyponatremia- pt reports he was in the ICU for this ~1 yr ago Family History: Uncle committed suicide at 40 by o/d on IV heroin Brother dx'd with paranoid schizophrenia Father- alcohol use d/o, 10 yrs ago Social History: Resides at [facility] home in [place]. His parents when he was young and he was primarily raised by his mother. He has a brother. He is and has a son. He doesn't communicate much with his son since his son is busy. Main support is his mom Attended 12th grade but didn't graduate. 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 Substance History: Smokes a few cigarettes occasionally, not daily. Declines NRT Denies h/o ETOH, MJ or other substance use Trauma History: Pt was bit by a dog at 2 y/o and required >100 stitches. Woke up during open heart surgery Job loss, incarceration (for unpaid child support) and divorce were also traumatic Diagnostics Vital Signs (24Hr): Vital Signs - 24 hr 06/09/25 18:46 06/09/25 19:25 06/10/25 08:00 Temperature 97.6 F 97.1 F 98.1 F Pulse Rate 72 80 72 Respiratory Rate Blood Pressure 116/67 141/63 H 94/58 L Pulse Oximetry 97 100 99 Oxygen Delivery Method Room Air Room Air Room Air 06/10/25 09:12 Temperature Pulse Rate 72 Respiratory Rate Blood Pressure 98/65 Pulse Oximetry Oxygen Delivery Method BMI result Body Mass Index 27.6 Labs 06/10/25 08:07 Labs: Laboratory Results - last 48 hr 06/10/25 08:07 Absolute Neuts (auto) 5.7 Sodium 141 Potassium 3.9 Chloride 108 Carbon Dioxide 23 Anion Gap 14 BUN 8 L Creatinine 0.94 Estim Creat Clear Calc 91.7 Estimated GFR > 60 Random Glucose 110 Estimat Average Glucose 114 Hemoglobin A1c % 5.6 Calcium 9.5 Total Bilirubin 0.3 AST 20 ALT 27 Alkaline Phosphatase 95 Total Protein 7.5 Albumin 4.7 Triglycerides 298 H Cholesterol 159 LDL Cholesterol, Calc 73 HDL Cholesterol 27 L Meds/Allergies Meds Home Medications ?Medication ?Instructions ?Recorded ?Confirmed ?Type aspirin 81 mg tablet,delayed 81 mg PO DAILY 06/09/25 06/09/25 History release atorvastatin 40 mg tablet 40 mg PO BEDTIME cholesterol 06/09/25 06/09/25 History calcium 500 mg (as 2 tab PO BID 06/09/25 06/09/25 History carbonate)-vitamin D3 5 mcg (200 unit) tablet (Oyster Shell Calcium-Vitamin D3) cholecalciferol (vitamin D3) 50 50 mcg PO DAILY 06/09/25 06/09/25 History mcg (2,000 unit) capsule clozapine 100 mg tablet 300 mg PO BEDTIME 06/09/25 06/09/25 History clozapine 50 mg tablet 50 mg PO BEDTIME 06/09/25 06/09/25 History dextroamphetamine-amphetamine ER 2 cap PO DAILY 06/09/25 06/09/25 History 10 mg 24hr capsule,extend release docusate sodium 100 mg capsule 100 mg PO BID 06/09/25 06/09/25 History duloxetine 60 mg capsule,delayed 60 mg PO DAILY 06/09/25 06/09/25 History release famotidine 20 mg tablet 20 mg PO BID acid reflux 06/09/25 06/09/25 History guanfacine 1 mg tablet,extended 1 mg PO DAILY 06/09/25 06/09/25 History release 24 hr ibuprofen 800 mg tablet 800 mg PO Q8H PRN pain 06/09/25 06/09/25 History lorazepam 1 mg tablet 1 mg PO BEDTIME PRN insomnia 06/09/25 06/09/25 History metoprolol succinate 25 mg 75 mg PO DAILY 06/09/25 06/09/25 History tablet,extended release 24 hr multivitamin with folic acid 400 1 tab PO DAILY 06/09/25 06/09/25 History mcg tablet (Daily-Avtar (with folic acid)) sertraline 100 mg tablet 100 mg PO DAILY 06/09/25 06/09/25 History sucralfate 1 gram tablet 1 g PO QID 06/09/25 06/09/25 History tamsulosin 0.4 mg capsule 0.4 mg PO BEDTIME 06/09/25 06/09/25 History trazodone 100 mg tablet 100 mg PO BEDTIME 06/09/25 06/09/25 History venlafaxine 75 mg capsule,extended 75 mg PO QAM 06/09/25 06/09/25 History release 24 hr vitamin B complex 1 cap PO DAILY 06/09/25 06/09/25 History Allergies Allergies Allergy/AdvReac Type Severity Reaction Status Date / Time bupropion Allergy Rash Verified 06/09/25 19:07 haloperidol (From Haldol) Allergy Rash Verified 06/09/25 19:07 lactose Allergy Gastrointestinal Verified 06/09/25 19:07 Upset peanut Allergy Anaphylaxis Verified 06/09/25 19:07 ziprasidone Allergy Rash Verified 06/09/25 19:07 Mental Status Exam Mental Status Exam Narrative: Appearance: Wearing hospital fior. Fair grooming. Good eye contact Attitude: Cooperative Speech: Fluent and wnl in regard to volume, tone, prosody Motor activity: Oral tremor. Otherwise wnl Mood: as noted above Affect: appropriate, reactive Thought process: goal directed and without evidence of formal thought disorder Thought content: as noted above. Perception: Denies current AHVH and does not appear to respond to internal stimuli Alert/oriented in all spheres Cognition grossly intact Insight: intact Judgment: intact Assessment & Plan Assessment & Plan (1) Schizoaffective disorder, bipolar type: Status: Acute Code(s): F25.0 - Schizoaffective disorder, bipolar type (2) PTSD (post-traumatic stress disorder): Status: Acute Code(s): F43.10 - Post-traumatic stress disorder, unspecified Plan Mr. Brikn is a 59 y/o DWM with documented h/o schizophrenia, bipolar d/o, depression, PTSD, KASSIE, sleep apnea, HTN, CAD, hyponatremia, peripheral neuropathy, 3 WA's s/p CABG, unsteady gait, and type II DM who was brought to the [facility] ED due to AH and SI. He was transferred to [facility] for tx of severe depression, SI and psychotic sx. Plan: Admitted to for safety and stabilization Legal status- CV Admission medical consult ordered 5 minute safety checks due to fall risk. Uses a walker Care coordination- -t/w spoke w/ grp funeral home associate w/ pt's consent to request updated med list, which I received. The manager plant will f/u weekly for updates and d/c planning -t/w left vm with pt's VNA nurse, outpatient psychiatrist and spoke w/ the motor operator at [facility] to try to obtain the d/c med list from pt's recent admission (looks like it was a few days ago per his d/c med rec). the phones are down but she will leave a message w/ charge nurse Meds- Continue current medications from nursing home list for now: Clozaril 50 mg qhs Clozaril 300 mg qhs for now (grp home list says 'bid at hs' and external med rec shows 300 mg qhs) Effexor XR 75 mg qam *per external med rec, it looks like pt is cross titrating from venlafaxine to sertraline, was previously on 225 mg qd. Will continue cross titration after clarifying when the doses were last adjusted diphenhydramine 50 mg qhs prn for insomna hydroxyzine 50 mg q 8 hrs prn for anxiety sertraline 100 mg qd trazodone 100 mg qhs acetaminophen 975 mg bid ASA 81 mg qam budesonide-formoterol 2 inhalations qd Calcium-Vit D 500mg-5 mcg tabs, 2 tabs po bid docusate 100 mg bid folic acid 1 mg qam ibuprofen 800 mg q 8 hrs prn for pain lactase 9000 unit tablet tid magnesium oxide 400 mg bid metformin 500 mg qam methocarbamol 500 mg q 8 hrs for muscle pain metoprolol 50 mg bid MVI qd nitroglycerin 0.4 mg SL q 5 min prn for chest pain u pt 3 doses simethicone 80 mg 4x/day after meals and at hs sucralfate 1 g 4x/day before meals tamsulosin 0.8 mg qhs Vit B complex qam Vit D3 50 mcg qam Will consider ECT Patient educated on: medication risk/benefits and ECT Informed Consent: understands Reason for continued inpatient stay Substantial Risk for: harm to self and med/psych decompensation Statement Statement: I have reviewed the history and physical and performed a pertinent examination on my patient. No changes have occurred unless specified. If the History and Physical was not performed prior to admission, the Hospitalist's service will be consulted for completing the admission physical. Time Spent With Patient Time: Total time managing care of this patient today ____ minutes.
[2025-06-10 13:51] LABS: Free T4 (Free Thyroxine) 1.01 ng/dL (0.71-1.85); Thyroid Stimulating Hormone 0.86 uIU/mL (0.32-4.0)
[2025-06-10 19:30] VITALS: BP 97/63; PULSE 100; RESP 18; TEMP 36.2; O2SAT 97
[2025-06-11 07:36] VITALS: BP 144/66; PULSE 75; RESP 20; TEMP 36.2; O2SAT 99
[2025-06-11] MEDS: Aspirin Enteric Coated 81 MG TABLET.DR PO (08:33)
[2025-06-11] MEDS: Venlafaxine HCl ER 75 MG CAP.ER.24H PO (08:34)
[2025-06-11] MEDS: Calcium + Vitamin D 250 MG TABLET 500 MG PO ×2 (08:35→20:04)
--- NOTE | 2025-06-11 10:06 | P.PNPSI_ITS ---
Subjective Subjective Date of Service: 06/11/25 Interim History: Patient reports feeling anxious. It started earlier today. He is worried about his health. He continues to have pain in his foot. Endorsing AH. No SI. Utilizes walker for ambulation. Isolates in his room. Medication adherent. Review of Systems Review of Systems Denies any shortness of breath, chest pain, palpitations, dizziness, lightheadedness, headaches, dysuria, abdominal pain or discomfort, nausea, vomiting or diarrhea. Denies chills, body aches, muscle aches, fatigue or weight loss. Reports pain in his right foot Mental Status Exam Mental Status Exam Narrative: Appearance: Wearing hospital fior. Fair grooming. Good eye contact Attitude: Cooperative Speech: Fluent and wnl in regard to volume, tone, prosody Motor activity: Oral tremor. Otherwise wnl Mood: as noted above Affect: appropriate, reactive Thought process: goal directed and without evidence of formal thought disorder Thought content: as noted above. Perception: Denies current AHVH and does not appear to respond to internal stimuli Alert/oriented in all spheres Cognition grossly intact Insight: intact Judgment: intact Diagnostics Vital Signs (24Hr): Vital Signs - 24 hr 06/10/25 19:30 06/11/25 07:36 Temperature 97.1 F 97.2 F Pulse Rate 100 75 Respiratory Rate 18 20 Blood Pressure 97/63 144/66 H Pulse Oximetry 97 99 Oxygen Delivery Method Room Air Room Air BMI result Body Mass Index 27.6 Labs 06/10/25 08:07 Labs: Laboratory Results - last 48 hr 06/10/25 08:07 Absolute Neuts (auto) 5.7 Sodium 141 Potassium 3.9 Chloride 108 Carbon Dioxide 23 Anion Gap 14 BUN 8 L Creatinine 0.94 Estim Creat Clear Calc 91.7 Estimated GFR > 60 Random Glucose 110 Estimat Average Glucose 114 Hemoglobin A1c % 5.6 Calcium 9.5 Total Bilirubin 0.3 AST 20 ALT 27 Alkaline Phosphatase 95 Total Protein 7.5 Albumin 4.7 Triglycerides 298 H Cholesterol 159 LDL Cholesterol, Calc 73 HDL Cholesterol 27 L TSH 0.86 Free T4 1.01 Medications Medications Current Medications Acetaminophen (Acetaminophen 325 Mg Tablet) 975 mg PO BID PRN PRN Reason: Pain, Moderate(Pain Scale 4-6) Last Admin: 06/11/25 08:32 Dose: 975 mg Al Hydroxide/Mg Hydroxide (Magnesium Hydrox/Alum Hydrox 30 Ml Oral.Susp) 30 ml PO Q6H PRN PRN Reason: Heartburn/Nausea Aspirin (Aspirin Enteric Coated 81 Mg Tablet.Dr) 81 mg PO DAILY [facility] Last Admin: 06/11/25 08:33 Dose: 81 mg Atorvastatin Calcium (Atorvastatin Calcium 40 Mg Tablet) 40 mg PO BEDTIME [facility] Last Admin: 06/10/25 20:40 Dose: 40 mg Budesonide (Budesonide 180 Mcg Aer.Pow.Ba) 2 puff INHALE RDAILY [facility] Last Admin: 06/11/25 08:29 Dose: 2 puff Calcium Carbonate/Cholecalciferol (Calcium + Vitamin D 250 Mg Tablet) 500 mg PO BID [facility] Last Admin: 06/11/25 08:35 Dose: 500 mg Clozapine (Clozapine 25 Mg Tablet) 50 mg PO BEDTIME [facility] Last Admin: 06/10/25 20:38 Dose: 50 mg Clozapine (Clozapine 100 Mg Tablet) 300 mg PO BEDTIME [facility] Last Admin: 06/10/25 20:40 Dose: 300 mg Diphenhydramine HCl (Diphenhydramine Hcl 25 Mg Capsule) 50 mg PO BEDTIME PRN PRN Reason: Insomnia Docusate Sodium (Docusate Sodium 100 Mg Capsule) 100 mg PO BID [facility] Last Admin: 06/11/25 08:31 Dose: 100 mg Famotidine (Famotidine 20 Mg Tablet) 20 mg PO BID [facility] Last Admin: 06/11/25 08:34 Dose: 20 mg Folic Acid (Folic Acid 1 Mg Tablet) 1 mg PO DAILY [facility] Last Admin: 06/11/25 08:35 Dose: 1 mg Hydroxyzine HCl (Hydroxyzine Hcl 50 Mg Tablet) 50 mg PO Q8H PRN PRN Reason: Anxiety Last Admin: 06/11/25 09:59 Dose: 50 mg Ibuprofen (Ibuprofen 800 Mg Tablet) 800 mg PO Q8H PRN PRN Reason: moderate pain Last Admin: 06/11/25 08:32 Dose: 800 mg Lactase (Lactase Tablet) 3 tab PO TIDWM [facility] Last Admin: 06/11/25 08:31 Dose: 3 tab Magnesium Hydroxide (Milk Of Magnesia 30 Ml Oral.Susp) 30 ml PO DAILY PRN PRN Reason: Constipation Magnesium Oxide (Magnesium Oxide 400 Mg Tablet) 400 mg PO BIDPC [facility] Last Admin: 06/11/25 08:34 Dose: 400 mg Metformin HCl (Metformin Hcl 500 Mg Tablet) 500 mg PO DAILY [facility] Last Admin: 06/11/25 08:34 Dose: 500 mg Methocarbamol (Methocarbamol 500 Mg Tablet) 500 mg PO TID PRN PRN Reason: severe pain Last Admin: 06/11/25 10:01 Dose: 500 mg Metoprolol Tartrate (Metoprolol Tartrate 50 Mg Tablet) 50 mg PO BID [facility]; Protocol Last Admin: 06/11/25 08:35 Dose: 50 mg Multivitamins/Vitamin C (Multivitamin Tablet) 1 tab PO DAILY [facility] Last Admin: 06/11/25 08:33 Dose: 1 tab Nicotine Polacrilex (Nicotine Polacrilex 2 Mg Gum) 2 mg BUCCAL Q2H PRN PRN Reason: Nicotine Cravings Nitroglycerin (Nitroglycerin 0.4 Mg Tab.Subl) 0.4 mg SUBLINGUAL [id number] PRN PRN Reason: chest pain Olanzapine (Olanzapine 5 Mg Tablet) 5 mg PO BID PRN PRN Reason: agitation Last Admin: 06/11/25 09:59 Dose: 5 mg Sertraline HCl (Sertraline Hcl 100 Mg Tablet) 100 mg PO DAILY [facility] Last Admin: 06/11/25 08:35 Dose: 100 mg Simethicone (Simethicone 80 Mg Tab.Chew) 80 mg PO QIDWMHS [facility] Last Admin: 06/11/25 08:30 Dose: 80 mg Sucralfate (Sucralfate 1 Gm Tablet) 1 gm PO QIDACHS [facility] Last Admin: 06/11/25 07:10 Dose: 1 gm Tamsulosin HCl (Tamsulosin Hcl 0.4 Mg Capsule) 0.8 mg PO BEDTIME [facility] Last Admin: 06/10/25 20:39 Dose: 0.8 mg Trazodone HCl (Trazodone Hcl 50 Mg Tablet) 50 mg PO BEDTIME MRX1 PRN PRN Reason: Insomnia Last Admin: 06/10/25 00:12 Dose: 50 mg Trazodone HCl (Trazodone Hcl 100 Mg Tablet) 100 mg PO BEDTIME [facility] Last Admin: 06/10/25 20:40 Dose: 100 mg Venlafaxine HCl (Venlafaxine Hcl Er 75 Mg Cap.Er.24h) 75 mg PO DAILY [facility] Last Admin: 06/11/25 08:34 Dose: 75 mg Vitamin D (Cholecalciferol (Vitamin D3) 25 Mcg Tablet) 50 mcg PO DAILY [facility] Last Admin: 06/11/25 08:36 Dose: 50 mcg Allergies Allergies Allergy/AdvReac Type Severity Reaction Status Date / Time bupropion Allergy Rash Verified 06/09/25 19:07 haloperidol (From Haldol) Allergy Rash Verified 06/09/25 19:07 lactose Allergy Gastrointestinal Verified 06/09/25 19:07 Upset peanut Allergy Anaphylaxis Verified 06/09/25 19:07 ziprasidone Allergy Rash Verified 06/09/25 19:07 Assessment & Plan Assessment & Plan (1) Schizoaffective disorder, bipolar type: Status: Acute Code(s): F25.0 - Schizoaffective disorder, bipolar type (2) PTSD (post-traumatic stress disorder): Status: Acute Code(s): F43.10 - Post-traumatic stress disorder, unspecified Plan Mr. Brink is a 59 y/o DWM with documented h/o schizophrenia, bipolar d/o, depression, PTSD, KASSIE, sleep apnea, HTN, CAD, hyponatremia, peripheral neuropathy, 3 AZ's s/p CABG, unsteady gait, and type II DM who was brought to the [facility] ED due to AH and SI. He was transferred to [facility] for tx of severe depression, SI and psychotic sx. Plan: Admitted to for safety and stabilization Legal status- CV Admission medical consult ordered 5 minute safety checks due to fall risk. Uses a walker Care coordination- -t/w spoke w/ [facility] home health registered nurse w/ pt's consent to request updated med list, which I received. The perianesthesia manager will f/u weekly for updates and d/c planning -t/w left vm with pt's VNA nurse, outpatient psychiatrist and spoke w/ the drill press operator at [facility] to try to obtain the d/c med list from pt's recent admission (looks like it was a few days ago per his d/c med rec). the phones are down but she will leave a message w/ charge nurse Meds- Continue current medications from intermediate list for now: Clozaril 50 mg qhs Clozaril 300 mg qhs for now (grp home list says 'bid at hs' and external med rec shows 300 mg qhs) Effexor XR 75 mg qam *per external med rec, it looks like pt is cross titrating from venlafaxine to sertraline, was previously on 225 mg qd. Will continue cross titration after clarifying when the doses were last adjusted diphenhydramine 50 mg qhs prn for insomna hydroxyzine 50 mg q 8 hrs prn for anxiety sertraline 100 mg qd trazodone 100 mg qhs acetaminophen 975 mg bid ASA 81 mg qam budesonide-formoterol 2 inhalations qd Calcium-Vit D 500mg-5 mcg tabs, 2 tabs po bid docusate 100 mg bid folic acid 1 mg qam ibuprofen 800 mg q 8 hrs prn for pain lactase 9000 unit tablet tid magnesium oxide 400 mg bid metformin 500 mg qam methocarbamol 500 mg q 8 hrs for muscle pain metoprolol 50 mg bid MVI qd nitroglycerin 0.4 mg SL q 5 min prn for chest pain u pt 3 doses simethicone 80 mg 4x/day after meals and at hs sucralfate 1 g 4x/day before meals tamsulosin 0.8 mg qhs Vit B complex qam Vit D3 50 mcg qam Will consider ECT 06/11: Trial GBP 100 mg TID for anxiety and pain. Reason for continued inpatient stay Substantial Risk for: inability to function and rapid decompensation Time Spent With Patient Time: Total time managing care of this patient today ____ minutes.
[2025-06-11 20:00] VITALS: BP 112/58; PULSE 70; RESP 17; TEMP 37; O2SAT 99
[2025-06-11 20:04] VITALS: BP 112/56; PULSE 70
[2025-06-12 00:45] VITALS: BP 113/56; PULSE 83; RESP 17; TEMP 36.2; O2SAT 98
[2025-06-12 00:55] VITALS: BP 90/60; PULSE 92; RESP 17; O2SAT 99
[2025-06-12 01:15] VITALS: BP 110/58; PULSE 82
--- NOTE | 2025-06-12 01:54 | PC.NURSE ---
c/o lightheadedness-at approximately 0030 patient used call forbes in the bathroom, patient was found sitting on the toilet with his clothing on, pants up. patient had reported he had fallen. when asked how he was able to get up from the floor stated ''well, I didn't fall but I feel lightheaded and dizzy'' I was going into the bathroom, sat down and then peed on myself'' patient was distraught when reporting this. clothing was wet. declined shower and was assisted in being cleaned up and clothing changed. patient participated in activity. orthos taken sitting 113/56, 83, 17. 98%, 97.1. standing 90/60, 92, 17, 99%. patient had medication changes having been started on gabapentin today. after initial set of VS patient drank water and layed himself in bed. bp in supine position 110/58, 82. no c/o dizziness when in supine position. placed on nursing initiated 1:[address] Mathews notified.
[2025-06-12 07:59] VITALS: BP 116/58; PULSE 77; RESP 14; TEMP 36.4; O2SAT 98
[2025-06-12] MEDS: Aspirin Enteric Coated 81 MG TABLET.DR PO (08:42)
[2025-06-12] MEDS: Venlafaxine HCl ER 75 MG CAP.ER.24H PO (08:44)
[2025-06-12] MEDS: Calcium + Vitamin D 250 MG TABLET 500 MG PO ×2 (08:44→21:23)
--- NOTE | 2025-06-12 09:36 | P.PNPSI_ITS ---
Subjective Subjective Date of Service: 06/12/25 Interim History: Patient reports had an episode of dizziness after taking the GBP and may have fallen in the bathroom but he isn't sure. He was on the toilet seat when he was found and not on the ground. He had positive orthostatics. He says he was straining trying to urinate before his episode. Also reports had urinary incontinence last night. He used to have a catheter last year for urinary retention. He was put on 1:1. Since over night he hasn't had any falls. He feels steady on his feet. Alert. Oriented. Endorsing AH. No SI. Utilizes walker for ambulation. Medication adherent. Review of Systems Review of Systems Denies any shortness of breath, chest pain, palpitations, dizziness, lightheadedness, headaches, dysuria, abdominal pain or discomfort, nausea, vomiting or diarrhea. Denies chills, body aches, muscle aches, fatigue or weight loss. Reports pain in his right foot Mental Status Exam Mental Status Exam Narrative: Appearance: Wearing hospital fior. Fair grooming. Good eye contact Attitude: Cooperative Speech: Fluent and wnl in regard to volume, tone, prosody Motor activity: Oral tremor. Otherwise wnl Mood: as noted above Affect: appropriate, reactive Thought process: goal directed and without evidence of formal thought disorder Thought content: as noted above. Perception: Denies current AHVH and does not appear to respond to internal stimuli Alert/oriented in all spheres Cognition grossly intact Insight: intact Judgment: intact Diagnostics Vital Signs (24Hr): Vital Signs - 24 hr 06/11/25 20:00 06/11/25 20:04 06/12/25 00:45 Temperature 98.6 F 97.1 F Pulse Rate 70 70 83 Respiratory Rate 17 17 Blood Pressure 112/58 L 112/56 L 113/56 L Pulse Oximetry 99 98 Oxygen Delivery Method Room Air Room Air 06/12/25 00:55 06/12/25 01:15 06/12/25 07:59 Temperature 97.5 F Pulse Rate 92 82 77 Respiratory Rate 17 14 Blood Pressure 90/60 110/58 L 116/58 L Pulse Oximetry 99 98 Oxygen Delivery Method Room Air Room Air BMI result Body Mass Index 27.6 Labs 06/10/25 08:07 Labs: Laboratory Results - last 48 hr 06/10/25 08:07 TSH 0.86 Free T4 1.01 Medications Medications Current Medications Acetaminophen (Acetaminophen 325 Mg Tablet) 975 mg PO BID PRN PRN Reason: Pain, Moderate(Pain Scale 4-6) Last Admin: 06/11/25 18:32 Dose: 975 mg Al Hydroxide/Mg Hydroxide (Magnesium Hydrox/Alum Hydrox 30 Ml Oral.Susp) 30 ml PO Q6H PRN PRN Reason: Heartburn/Nausea Aspirin (Aspirin Enteric Coated 81 Mg Tablet.Dr) 81 mg PO DAILY [facility] Last Admin: 06/12/25 08:42 Dose: 81 mg Atorvastatin Calcium (Atorvastatin Calcium 40 Mg Tablet) 40 mg PO BEDTIME [facility] Last Admin: 06/11/25 20:04 Dose: 40 mg Budesonide (Budesonide 180 Mcg Aer.Pow.Ba) 2 puff INHALE RDAILY [facility] Last Admin: 06/12/25 08:48 Dose: 2 puff Calcium Carbonate/Cholecalciferol (Calcium + Vitamin D 250 Mg Tablet) 500 mg PO BID [facility] Last Admin: 06/12/25 08:44 Dose: 500 mg Clozapine (Clozapine 25 Mg Tablet) 50 mg PO BEDTIME [facility] Last Admin: 06/11/25 20:06 Dose: 50 mg Clozapine (Clozapine 100 Mg Tablet) 300 mg PO BEDTIME [facility] Last Admin: 06/11/25 20:02 Dose: 300 mg Diphenhydramine HCl (Diphenhydramine Hcl 25 Mg Capsule) 50 mg PO BEDTIME PRN PRN Reason: Insomnia Docusate Sodium (Docusate Sodium 100 Mg Capsule) 100 mg PO BID [facility] Last Admin: 06/12/25 08:42 Dose: 100 mg Famotidine (Famotidine 20 Mg Tablet) 20 mg PO BID [facility] Last Admin: 06/12/25 08:46 Dose: 20 mg Folic Acid (Folic Acid 1 Mg Tablet) 1 mg PO DAILY [facility] Last Admin: 06/12/25 08:46 Dose: 1 mg Gabapentin (Gabapentin 100 Mg Capsule) 100 mg PO TID [facility] Last Admin: 06/12/25 08:49 Dose: Not Given Hydroxyzine HCl (Hydroxyzine Hcl 50 Mg Tablet) 50 mg PO Q8H PRN PRN Reason: Anxiety Last Admin: 06/11/25 09:59 Dose: 50 mg Ibuprofen (Ibuprofen 800 Mg Tablet) 800 mg PO Q8H PRN PRN Reason: moderate pain Last Admin: 06/12/25 08:45 Dose: 800 mg Lactase (Lactase Tablet) 3 tab PO TIDWM [facility] Last Admin: 06/12/25 08:41 Dose: 3 tab Magnesium Hydroxide (Milk Of Magnesia 30 Ml Oral.Susp) 30 ml PO DAILY PRN PRN Reason: Constipation Magnesium Oxide (Magnesium Oxide 400 Mg Tablet) 400 mg PO BIDPC [facility] Last Admin: 06/12/25 08:45 Dose: 400 mg Metformin HCl (Metformin Hcl 500 Mg Tablet) 500 mg PO DAILY [facility] Last Admin: 06/12/25 08:44 Dose: 500 mg Methocarbamol (Methocarbamol 500 Mg Tablet) 500 mg PO TID PRN PRN Reason: severe pain Last Admin: 06/11/25 15:44 Dose: 500 mg Metoprolol Tartrate (Metoprolol Tartrate 50 Mg Tablet) 50 mg PO BID [facility]; Protocol Last Admin: 06/12/25 08:44 Dose: 50 mg Multivitamins/Vitamin C (Multivitamin Tablet) 1 tab PO DAILY [facility] Last Admin: 06/12/25 08:43 Dose: 1 tab Nicotine Polacrilex (Nicotine Polacrilex 2 Mg Gum) 2 mg BUCCAL Q2H PRN PRN Reason: Nicotine Cravings Nitroglycerin (Nitroglycerin 0.4 Mg Tab.Subl) 0.4 mg SUBLINGUAL Q5MX3 PRN PRN Reason: chest pain Olanzapine (Olanzapine 5 Mg Tablet) 5 mg PO BID PRN PRN Reason: agitation Last Admin: 06/11/25 15:44 Dose: 5 mg Sertraline HCl (Sertraline Hcl 100 Mg Tablet) 100 mg PO DAILY [facility] Last Admin: 06/12/25 08:45 Dose: 100 mg Simethicone (Simethicone 80 Mg Tab.Chew) 80 mg PO QIDWMHS [facility] Last Admin: 06/12/25 08:41 Dose: 80 mg Sucralfate (Sucralfate 1 Gm Tablet) 1 gm PO QIDACHS [facility] Last Admin: 06/12/25 08:45 Dose: 1 gm Tamsulosin HCl (Tamsulosin Hcl 0.4 Mg Capsule) 0.8 mg PO BEDTIME [facility] Last Admin: 06/11/25 20:03 Dose: 0.8 mg Trazodone HCl (Trazodone Hcl 50 Mg Tablet) 50 mg PO BEDTIME MRX1 PRN PRN Reason: Insomnia Last Admin: 06/10/25 00:12 Dose: 50 mg Trazodone HCl (Trazodone Hcl 100 Mg Tablet) 100 mg PO BEDTIME [facility] Last Admin: 06/11/25 20:03 Dose: 100 mg Venlafaxine HCl (Venlafaxine Hcl Er 75 Mg Cap.Er.24h) 75 mg PO DAILY [facility] Last Admin: 06/12/25 08:44 Dose: 75 mg Vitamin D (Cholecalciferol (Vitamin D3) 25 Mcg Tablet) 50 mcg PO DAILY [facility] Last Admin: 06/12/25 08:43 Dose: 50 mcg Allergies Allergies Allergy/AdvReac Type Severity Reaction Status Date / Time bupropion Allergy Rash Verified 06/09/25 19:07 haloperidol (From Haldol) Allergy Rash Verified 06/09/25 19:07 lactose Allergy Gastrointestinal Verified 06/09/25 19:07 Upset peanut Allergy Anaphylaxis Verified 06/09/25 19:07 ziprasidone Allergy Rash Verified 06/09/25 19:07 Assessment & Plan Assessment & Plan (1) Schizoaffective disorder, bipolar type: Status: Acute Code(s): F25.0 - Schizoaffective disorder, bipolar type (2) PTSD (post-traumatic stress disorder): Status: Acute Code(s): F43.10 - Post-traumatic stress disorder, unspecified Plan Mr. Brink is a 59 y/o DWM with documented h/o schizophrenia, bipolar d/o, depression, PTSD, KASSIE, sleep apnea, HTN, CAD, hyponatremia, peripheral neuropathy, 3 PR's s/p CABG, unsteady gait, and type II DM who was brought to the [facility] ED due to AH and SI. He was transferred to [facility] for tx of severe depression, SI and psychotic sx. Plan: Admitted to for safety and stabilization Legal status- CV Admission medical consult ordered 5 minute safety checks due to fall risk. Uses a walker Care coordination- -t/w spoke w/ [facility] home energy consultant w/ pt's consent to request updated med list, which I received. The clinical application manager will f/u weekly for updates and d/c planning -t/w left vm with pt's VNA nurse, outpatient psychiatrist and spoke w/ the process plant operator at [facility] to try to obtain the d/c med list from pt's recent admission (looks like it was a few days ago per his d/c med rec). the phones are down but she will leave a message w/ charge nurse Meds- Continue current medications from [facility] list for now: Clozaril 50 mg qhs Clozaril 300 mg qhs for now ([facility] home list says 'bid at hs' and external med rec shows 300 mg qhs) Effexor XR 75 mg qam *per external med rec, it looks like pt is cross titrating from venlafaxine to sertraline, was previously on 225 mg qd. Will continue cross titration after clarifying when the doses were last adjusted diphenhydramine 50 mg qhs prn for insomna hydroxyzine 50 mg q 8 hrs prn for anxiety sertraline 100 mg qd trazodone 100 mg qhs acetaminophen 975 mg bid ASA 81 mg qam budesonide-formoterol 2 inhalations qd Calcium-Vit D 500mg-5 mcg tabs, 2 tabs po bid docusate 100 mg bid folic acid 1 mg qam ibuprofen 800 mg q 8 hrs prn for pain lactase 9000 unit tablet tid magnesium oxide 400 mg bid metformin 500 mg qam methocarbamol 500 mg q 8 hrs for muscle pain metoprolol 50 mg bid MVI qd nitroglycerin 0.4 mg SL q 5 min prn for chest pain u pt 3 doses simethicone 80 mg 4x/day after meals and at hs sucralfate 1 g 4x/day before meals tamsulosin 0.8 mg qhs Vit B complex qam Vit D3 50 mcg qam Will consider ECT 06/11: Trial GBP 100 mg TID for anxiety and pain. 06/12: DC Gabapentin. Monitor urinary retention/incontinence. He is on Tamsulosin. Continue current management and treatment plan. Reason for continued inpatient stay Substantial Risk for: inability to function, rapid decompensation and med/psych decompensation Time Spent With Patient Time: Total time managing care of this patient today ____ minutes.
[2025-06-12 19:35] VITALS: BP 137/60; PULSE 74; RESP 16; TEMP 36.2; O2SAT 98
[2025-06-12 21:22] VITALS: BP 119/57; PULSE 80
[2025-06-13 08:00] VITALS: BP 105/70; PULSE 93; RESP 12; TEMP 36.3; O2SAT 98
[2025-06-13 08:39] VITALS: BP 105/70; PULSE 93
[2025-06-13] MEDS: Aspirin Enteric Coated 81 MG TABLET.DR PO (08:39)
[2025-06-13] MEDS: Calcium + Vitamin D 250 MG TABLET 500 MG PO ×2 (08:39→20:36)
[2025-06-13] MEDS: Venlafaxine HCl ER 75 MG CAP.ER.24H PO (08:40)
--- NOTE | 2025-06-13 16:44 | PC.NURSE ---
This evening, pt c/o swelling in his right foot. Minimal swelling noted to pt's right anterior foot when assessed. Provider Maye Byers notified via telephone and pt given a bag of ice.
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
[2025-06-13 20:00] VITALS: BP 138/76; PULSE 70; RESP 16; TEMP 36.3; O2SAT 100
[2025-06-13 20:36] VITALS: BP 138/76; PULSE 70
--- NOTE | 2025-06-13 23:36 | PC.NURSE ---
bladder scan-reported he was able to void. post void scan 86
--- NOTE | 2025-06-14 | ECG_ITS ---
Test Reason : Chest pain Blood Pressure : */* mmHG Vent. Rate : 68 BPM Atrial Rate : 68 BPM P-R Int : 146 ms QRS Dur : 96 ms QT Int : 416 ms P-R-T Axes : 67 3 56 degrees QTcB Int : 442 ms Normal sinus rhythm Normal ECG No previous ECGs available Referred By: Alejandra Dangelo Electronically Signed By: BREEZY AMADOR MD
[2025-06-14 07:54] VITALS: BP 174/77; PULSE 90; RESP 18; TEMP 36.7; O2SAT 98
--- NOTE | 2025-06-14 08:19 | HO.ECT-CONS ---
History of Present Illness Data of Consult Service Date: 06/14/25 Primary Care Provider: Unknown Physician HPI Reason for consult: Medical management 59-year-old male with a past medical history of bipolar disorder, psychosis anxiety, depression, BPH, type 2 diabetes, chronic pain disorder, coronary artery disease, hyperlipidemia, hypertension, peripheral neuropathy, schizoaffective disorder, history of stroke, sleep apnea, history of substance abuse presented [facility] with increased depression and expressing suicide ideation. His lab work was without leukocytosis or anemia, mild metabolic acidosis was corrected with IV fluids, he was given Ativan in the emergency department due to significant anxiety. EKG with normal sinus rhythm. Head CT with no intracranial abnormality. Liver enzymes without evidence of liver injury, renal function within normal limits. Viral panel within normal limits. Urinalysis negative for infection. On exam he has no medical concerns. Reports that he feels well. Ambulating with a walker due to a right foot injury requiring plates 6 months ago. Patient is followed by Cardiology, Urology, and orthopedics outpatient. Patient is being seen due to evaluation for ECT treatment. Patient has had ECT treatment in the past in 2014. Denies any SINGLETARY, orthopnea, PND. ?Reports a history of stroke, no space-occupying intracranial lesion, or TBI.? Reports a history of three-vessel coronary artery bypass graft 10 years ago, no stents. Patient reports that he had an [place] 10 years ago as well. No severe pulmonary conditions. Denies history PAD or bleeding disorders. No previous complications from anesthesia although he reports sitting up during his heart surgery.? Patient denies chest pain/pressure, palpitations.? No shortness of breath or difficulty breathing.? Denies lightheadedness or dizziness.? No fever, chills, nausea, vomiting, abdominal pain.? Patient feels despondent. Denies any physical concerns. Ambulating with a steady gait on the unit.? Review of Systems Review of Systems: Denies any shortness of breath, chest pain, palpitations, dizziness, lightheadedness, headaches, dysuria, abdominal pain or discomfort, nausea, vomiting or diarrhea. Denies chills, body aches, muscle aches, +fatigue. PMFSH Social History Household Members: Other Household Members Other:: jail residents Housing: Other Housing Other:: jail Do you presently have visiting nurse or other home services: Yes ([employer]) Comment: 5's Patient Tobacco Use Status: Former Tobacco user Tobacco use type: Cigarette Cigarettes Per Day: 3 Years Smoked: 43 Smoked in Last 30 Days: Yes e-Cigarette/Vaping Use: Never Used Patient Interested in Nicotine Replacement: No Patient Given Instructions on How to Stop Smoking: Yes Date Education Initiated: 06/09/25 Second Hand Smoke Exposure: No Currently Displaying Signs/Symptoms of Drug Intoxication Withdrawal: No Have you been hit, kicked, punched, or otherwise hurt by someone within the past year? If so, by whom?: No Do you feel safe in your current relationship?: No Current Relationship Is there a partner from a previous relationship who is making you feel unsafe now?: No Are you made to feel afraid or neglected: No Advance Directives: No Advance Directives Information Provided: No Advance Directives on File: No Do you have thoughts of harming others: None Do you have a plan to hurt others: No Plan Recently lost weight without trying: No How much weight loss: Not applicable Eating poorly because of decreased appetite: No Nutrition screen score: 0 Nutrition Risks: No Nutritional Risk service: No Sexual orientation: Straight/Heterosexual Meds Allergies Allergy/AdvReac Type Severity Reaction Status Date / Time bupropion Allergy Rash Verified 06/09/25 19:07 haloperidol (From Haldol) Allergy Rash Verified 06/09/25 19:07 lactose Allergy Gastrointestinal Verified 06/09/25 19:07 Upset peanut Allergy Anaphylaxis Verified 06/09/25 19:07 ziprasidone Allergy Rash Verified 06/09/25 19:07 Active Medications: Current Medications Acetaminophen (Acetaminophen 325 Mg Tablet) 975 mg PO BID PRN PRN Reason: Pain, Moderate(Pain Scale 4-6) Last Admin: 06/13/25 10:14 Dose: 975 mg Al Hydroxide/Mg Hydroxide (Magnesium Hydrox/Alum Hydrox 30 Ml Oral.Susp) 30 ml PO Q6H PRN PRN Reason: Heartburn/Nausea Aspirin (Aspirin Enteric Coated 81 Mg Tablet.Dr) 81 mg PO DAILY [facility] Last Admin: 06/13/25 08:39 Dose: 81 mg Atorvastatin Calcium (Atorvastatin Calcium 40 Mg Tablet) 40 mg PO BEDTIME [facility] Last Admin: 06/13/25 20:37 Dose: 40 mg Budesonide (Budesonide 180 Mcg Aer.Pow.Ba) 2 puff INHALE RDAILY [facility] Last Admin: 06/13/25 09:01 Dose: 2 puff Calcium Carbonate/Cholecalciferol (Calcium + Vitamin D 250 Mg Tablet) 500 mg PO BID [facility] Last Admin: 06/13/25 20:36 Dose: 500 mg Clozapine (Clozapine 25 Mg Tablet) 50 mg PO BEDTIME [facility] Last Admin: 06/13/25 20:35 Dose: 50 mg Clozapine (Clozapine 100 Mg Tablet) 300 mg PO BEDTIME [facility] Last Admin: 06/13/25 20:35 Dose: 300 mg Diphenhydramine HCl (Diphenhydramine Hcl 25 Mg Capsule) 50 mg PO BEDTIME PRN PRN Reason: Insomnia Docusate Sodium (Docusate Sodium 100 Mg Capsule) 100 mg PO BID [facility] Last Admin: 06/13/25 20:37 Dose: 100 mg Famotidine (Famotidine 20 Mg Tablet) 20 mg PO BID [facility] Last Admin: 06/13/25 20:36 Dose: 20 mg Folic Acid (Folic Acid 1 Mg Tablet) 1 mg PO DAILY [facility] Last Admin: 06/13/25 08:40 Dose: 1 mg Hydroxyzine HCl (Hydroxyzine Hcl 50 Mg Tablet) 50 mg PO Q8H PRN PRN Reason: Anxiety Last Admin: 06/13/25 20:42 Dose: 50 mg Ibuprofen (Ibuprofen 800 Mg Tablet) 800 mg PO Q8H PRN PRN Reason: moderate pain Last Admin: 06/13/25 20:42 Dose: 800 mg Lactase (Lactase Tablet) 3 tab PO TIDWM [facility] Last Admin: 06/13/25 17:06 Dose: 3 tab Magnesium Hydroxide (Milk Of Magnesia 30 Ml Oral.Susp) 30 ml PO DAILY PRN PRN Reason: Constipation Magnesium Oxide (Magnesium Oxide 400 Mg Tablet) [facility] Last Admin: 06/13/25 17:05 Dose: 400 mg Metformin HCl (Metformin Hcl 500 Mg Tablet) 500 mg PO DAILY [facility] Last Admin: 06/13/25 08:39 Dose: 500 mg Methocarbamol (Methocarbamol 500 Mg Tablet) 500 mg PO TID PRN PRN Reason: severe pain Last Admin: 06/13/25 16:08 Dose: 500 mg Metoprolol Tartrate (Metoprolol Tartrate 50 Mg Tablet) 50 mg PO BID [facility]; Protocol Last Admin: 06/13/25 20:36 Dose: 50 mg Multivitamins/Vitamin C (Multivitamin Tablet) 1 tab PO DAILY [facility] Last Admin: 06/13/25 08:40 Dose: 1 tab Nicotine Polacrilex (Nicotine Polacrilex 2 Mg Gum) 2 mg BUCCAL Q2H PRN PRN Reason: Nicotine Cravings Nitroglycerin (Nitroglycerin 0.4 Mg Tab.Subl) 0.4 mg SUBLINGUAL [id number] PRN PRN Reason: chest pain Olanzapine (Olanzapine 5 Mg Tablet) 5 mg PO BID PRN PRN Reason: agitation Last Admin: 06/11/25 15:44 Dose: 5 mg Polyethylene Glycol (Polyethylene Glycol 3350 17 Gm Powd.Pack) 17 gm PO DAILY PRN PRN Reason: Constipation Last Admin: 06/12/25 14:45 Dose: 17 gm Sertraline HCl (Sertraline Hcl 100 Mg Tablet) 100 mg PO DAILY [facility] Last Admin: 06/13/25 08:39 Dose: 100 mg Simethicone (Simethicone 80 Mg Tab.Chew) 80 mg PO QIDWMHS [facility] Last Admin: 06/13/25 20:35 Dose: 80 mg Sucralfate (Sucralfate 1 Gm Tablet) 1 gm PO QIDACHS [facility] Last Admin: 06/13/25 20:36 Dose: 1 gm Tamsulosin HCl (Tamsulosin Hcl 0.4 Mg Capsule) 0.8 mg PO BEDTIME [facility] Last Admin: 06/13/25 20:37 Dose: 0.8 mg Trazodone HCl (Trazodone Hcl 50 Mg Tablet) 50 mg PO BEDTIME MRX1 PRN PRN Reason: Insomnia Last Admin: 06/13/25 23:33 Dose: 50 mg Trazodone HCl (Trazodone Hcl 100 Mg Tablet) 100 mg PO BEDTIME [facility] Last Admin: 06/13/25 20:37 Dose: 100 mg Venlafaxine HCl (Venlafaxine Hcl Er 37.5 Mg Cap.Er.24h) 37.5 mg PO DAILY [facility] Vitamin D (Cholecalciferol (Vitamin D3) 25 Mcg Tablet) 50 mcg PO DAILY [facility] Last Admin: 06/13/25 08:40 Dose: 50 mcg Home Medications ?Medication ?Instructions ?Recorded ?Confirmed ?Last Taken ?Type aspirin 81 mg tablet,delayed 81 mg PO DAILY 06/09/25 06/09/25 06/08/25 History release atorvastatin 40 mg tablet 40 mg PO BEDTIME cholesterol 06/09/25 06/09/25 06/08/25 History calcium 500 mg (as 2 tab PO BID 06/09/25 06/09/25 Unknown History carbonate)-vitamin D3 5 mcg (200 unit) tablet (Oyster Shell Calcium-Vitamin D3) cholecalciferol (vitamin D3) 50 50 mcg PO DAILY 06/09/25 06/09/25 06/08/25 History mcg (2,000 unit) capsule clozapine 100 mg tablet 300 mg PO BEDTIME 06/09/25 06/09/25 06/08/25 History clozapine 50 mg tablet 50 mg PO BEDTIME 06/09/25 06/09/25 06/08/25 History dextroamphetamine-amphetamine ER 2 cap PO DAILY 06/09/25 06/09/25 06/08/25 History 10 mg 24hr capsule,extend release docusate sodium 100 mg capsule 100 mg PO BID 06/09/25 06/09/25 06/08/25 History duloxetine 60 mg capsule,delayed 60 mg PO DAILY 06/09/25 06/09/25 06/08/25 History release famotidine 20 mg tablet 20 mg PO BID acid reflux 06/09/25 06/09/25 Unknown History guanfacine 1 mg tablet,extended 1 mg PO DAILY 06/09/25 06/09/25 Unknown History release 24 hr ibuprofen 800 mg tablet 800 mg PO Q8H PRN pain 06/09/25 06/09/25 Unknown History lorazepam 1 mg tablet 1 mg PO BEDTIME PRN insomnia 06/09/25 06/09/25 06/08/25 History metoprolol succinate 25 mg 75 mg PO DAILY 06/09/25 06/09/25 Unknown History tablet,extended release 24 hr multivitamin with folic acid 400 1 tab PO DAILY 06/09/25 06/09/25 06/08/25 History mcg tablet (Daily-Avtar (with folic acid)) sertraline 100 mg tablet 100 mg PO DAILY 06/09/25 06/09/25 06/08/25 History sucralfate 1 gram tablet 1 g PO QID 06/09/25 06/09/25 Unknown History tamsulosin 0.4 mg capsule 0.4 mg PO BEDTIME 06/09/25 06/09/25 06/03/25 History trazodone 100 mg tablet 100 mg PO BEDTIME 06/09/25 06/09/25 06/08/25 History venlafaxine 75 mg capsule,extended 75 mg PO QAM 06/09/25 06/09/25 06/08/25 History release 24 hr vitamin B complex 1 cap PO DAILY 06/09/25 06/09/25 06/08/25 History Physical Exam Vital Signs and Narrative: Vital Signs: Last Vital Signs Temp 98.0 F 06/14/25 07:54 Pulse 90 06/14/25 07:54 Resp 18 06/14/25 07:54 BP 174/77 H 06/14/25 07:54 Pulse Ox 98 06/14/25 07:54 O2 Del Method Room Air 06/14/25 07:54 BMI result Body Mass Index 27.6 CONST: Alert and oriented, in NAD. Well nourished HEENT: Normocephalic, atraumatic, MMM, Eyes clear, Neck supple RESP: Lungs clear, RRR even and regular HEART:,RRR, S1, S2. No edema GI:Abdomen Soft NT, ND. + BS times four :Deferred SKIN: Warm dry and intact, no visible lesions or rashes NEURO:CN II-XII Intact bilaterally, Sensation intact. Speech clear PSYCH: Normal affect Extremities: Patient ambulatory with a walker, steady gait Results Labs 06/14/25 14:27 06/14/25 14:27 Assessment and Plan (1) Coronary artery disease: Status: Acute Plan 59-year-old male with medical history listed below presented to the ED with increased depression and suicidal ideation. Now admitted to inpatient psych for mood stabilization. Bipolar disorder/Psychosis/Anxiety/Depression/schizoaffective disorder/history of substance use disorder Treatment per psychiatric team BPH Followed by urology outpatient Continue Flomax Type 2 diabetes Diet controlled Recent A1c 5.6 CAD/HLD/HTN/patient with history of a stroke Continue aspirin, atorvastatin, and metoprolol Follows cardiology outpatient EKG pending History of sleep apnea Deny use of CPAP Chronic pain disorder/peripheral neuropathy/right foot fracture Continue with duloxetine Ambulating with a walker Follows Orthopedics outpatient ECT risk stratification. Patient without previous problems with anesthesia, has previously undergone ECT RCRI 0 points, no further cardiac workup or treatment indicated at this time. Patient denies any past problems with anesthesia. EKG pending, no evidence of ischemic changes Based on stated PMH, HPI, and physical exam, there are no There are no obvious contraindications to the planned procedure. Patient with moderate risk due to advancing age and history of coronary artery disease.
[2025-06-14] MEDS: Venlafaxine HCl ER 37.5 MG CAP.ER.24H PO (08:47)
[2025-06-14] MEDS: Calcium + Vitamin D 250 MG TABLET 500 MG PO ×2 (08:48→20:51)
[2025-06-14] MEDS: Aspirin Enteric Coated 81 MG TABLET.DR PO (08:51)
[2025-06-14 14:32] LABS: MANUAL DIFF FLAG NO
[2025-06-14 14:34] LABS: Hematocrit 38.2 % (42.0-52.0); Hemoglobin 13.0 g/dl (14.0-18.0); Imm Gran Abs Auto 0.02 X10*3/uL (0.00-0.03); Imm Gran Pct Auto 0.3 % (0.0-0.4); Lymphocytes Absolute Auto 1.7 X10*3/uL (1.2-4.9); Mean Corpuscular HGB Conc 34.0 g/dl (31.0-36.0); Mean Corpuscular Hemoglobin 28.6 pg (27.0-33.0); Mean Corpuscular Volume 84.0 fL (80.0-98.0); NRBC Abs Auto 0.000 X10*3/uL (0.0-0.012); NRBC Pct Auto 0.0 /100WBC (0.0-0.2); Platelet Count 284 X10*3/uL (160-400); Red Blood Count 4.55 X10*6/uL (4.60-5.80); White Blood Count 7.9 X10*3/uL (4.8-10.8)
[2025-06-14 14:51] LABS: Alanine Aminotransferase 42 U/L (0-40); Albumin Level 4.8 g/dL (3.5-5.0); Alkaline Phosphatase 93 U/L (39-117); Anion Gap 14 (12-20); Aspartate Amino Transferase 22 U/L (5-37); Blood Urea Nitrogen 19 mg/dL (9-16); Calcium 9.8 mg/dL (8.4-10.2); Carbon Dioxide 26 mmol/L (22-29); Chloride 103 mmol/L (96-108); Creatinine Clr Calc Pharmacy 72.4; Estimated Glomerular Filt Rate > 60; Potassium 4.3 mmol/L (3.3-5.1); Sodium 139 mmol/L (135-145); Total Protein 7.6 g/dL (6.5-8.0)
[2025-06-14 16:00] VITALS: BP 126/68; PULSE 91; RESP 16; TEMP 36.9; O2SAT 99
--- NOTE | 2025-06-14 16:21 | PM.EVENT ---
Event Note Date of Service: 06/14/25 Event Note: Nursing reported that patient is complaining of left-sided chest pain. Patient has had multiple somatic complaints since admission, workup has been negative so far. He does have a history of coronary artery disease, followed by outpatient Cardiology. Reports left-sided chest pain that started about 10 minutes ago. His vitals are stable, no tachycardia, blood pressure 126/68. No hypoxia, no fever. Denies any radiation of the pain. No pain in his jaw, arms. No diaphoresis. Does not describe the pain as pressure, squeezing or fullness. Pain is not going away. Denies any back neck jaw or stomach pain. Denies any shortness of breath or cough. Reports mild nausea, denies lightheadedness dizziness, no loss of consciousness. We will order EKG, troponins to rule out ACS. Time Spent With Patient Time: Total time managing care of this patient today ____ minutes.
--- NOTE | 2025-06-14 16:41 | PC.NURSE ---
Pt reported chest pain at 1545 pt denied any other sx but reported nausea. VS WNL . Ramon Dangelo [employer] was notified. EKG and chest x ray was performed
--- NOTE | 2025-06-14 18:11 | HO.PSYCHPN ---
Subjective Subjective Date of Service: 06/14/25 Reason For Visit: SI Interim History: chart reviewed, case discussed with tx team Pt has been somatically preoccupied throughout his admission. He c/o R foot swelling/pain related to his surgery. He has reported difficulty w/ urinating and is getting bladder scans q shift. He endorsed chest pain this afternoon to the hospitalist while evaluating him for ECT clearance. EKG showed NSR and CXR today showed no acute changes. He endorses ongoing depression, anhedonia, low motivation, feelings of hopelessness/helplessness and is looking forward to starting ECT. He is generally isolating in his room He denies SI, AH/VH Medication Compliance: Yes Mental Status Exam Mental Status Exam Narrative: Appearance: grooming & hygiene wnl. good eye contact Attitude:Cooperative Speech: Fluent and wnl in regard to volume, tone, prosody Motor activity: Lip smacking- pt is aware of it and states that it's voluntary. AIMS otherwise neg Mood: as noted above Affect: appropriate, generally constricted Thought process: somatically preoccupied. Thought content: as noted above. Perception: Denies AH/VH and does not appear to respond to internal stimuli Insight: fair Judgment: fair Diagnostics Vital Signs (24Hr): Vital Signs - 24 hr 06/13/25 20:00 06/13/25 20:36 06/14/25 07:54 Temperature 97.4 F 98.0 F Pulse Rate 70 70 90 Respiratory Rate 16 18 Blood Pressure 138/76 138/76 174/77 H Pulse Oximetry 100 98 Oxygen Delivery Method Room Air Room Air BMI result Body Mass Index 27.6 Labs 06/14/25 14:27 06/14/25 14:27 Labs: Laboratory Results - last 48 hr 06/14/25 14:27 WBC 7.9 RBC 4.55 L Hgb 13.0 L Hct 38.2 L MCV 84.0 MCH 28.6 MCHC 34.0 RDW 13.4 Plt Count 284 MPV 9.2 L Immature Gran % (Auto) 0.3 Neut % (Auto) 68.0 Lymph % (Auto) 21.6 [place] % (Auto) 7.3 Eos % (Auto) 1.9 Baso % (Auto) 0.9 Lymph # (Auto) 1.7 [place] # (Auto) 0.6 Eos # (Auto) 0.2 Baso # (Auto) 0.1 Abs Immat Gran (auto) 0.02 Absolute Neuts (auto) 5.4 Absolute Nucleated RBC 0.000 Nucleated RBC % (auto) 0.0 Sodium 139 Potassium 4.3 Chloride 103 Carbon Dioxide 26 Anion Gap 14 BUN 19 H Creatinine 1.19 Estim Creat Clear Calc 72.4 Estimated GFR > 60 Random Glucose 135 H Calcium 9.8 Total Bilirubin 0.3 AST 22 ALT 42 H Alkaline Phosphatase 93 Total Protein 7.6 Albumin 4.8 EKG EKG: reviewed Imaging Radiology Impressions: ITS Impressions Chest X-Ray 06/14/25 16:43 IMPRESSION: No evidence for acute disease in the chest. Electronically signed by: Concepcion Delarosa MD 06/14/2025 04:54 PM EDT RP Medications Medications Current Medications Acetaminophen (Acetaminophen 325 Mg Tablet) 975 mg PO BID PRN PRN Reason: Pain, Moderate(Pain Scale 4-6) Last Admin: 06/14/25 08:52 Dose: 975 mg Al Hydroxide/Mg Hydroxide (Magnesium Hydrox/Alum Hydrox 30 Ml Oral.Susp) 30 ml PO Q6H PRN PRN Reason: Heartburn/Nausea Aspirin (Aspirin Enteric Coated 81 Mg Tablet.Dr) 81 mg PO DAILY [facility] Last Admin: 06/14/25 08:51 Dose: 81 mg Atorvastatin Calcium (Atorvastatin Calcium 40 Mg Tablet) 40 mg PO BEDTIME [facility] Last Admin: 06/13/25 20:37 Dose: 40 mg Budesonide (Budesonide 180 Mcg Aer.Pow.Ba) 2 puff INHALE RDAILY [facility] Last Admin: 06/14/25 08:46 Dose: 2 puff Calcium Carbonate/Cholecalciferol (Calcium + Vitamin D 250 Mg Tablet) 500 mg PO BID [facility] Last Admin: 06/14/25 08:48 Dose: 500 mg Clozapine (Clozapine 25 Mg Tablet) 50 mg PO BEDTIME [facility] Last Admin: 06/13/25 20:35 Dose: 50 mg Clozapine (Clozapine 100 Mg Tablet) 300 mg PO BEDTIME [facility] Last Admin: 06/13/25 20:35 Dose: 300 mg Diphenhydramine HCl (Diphenhydramine Hcl 25 Mg Capsule) 50 mg PO BEDTIME PRN PRN Reason: Insomnia Docusate Sodium (Docusate Sodium 100 Mg Capsule) 100 mg PO BID [facility] Last Admin: 06/14/25 08:50 Dose: 100 mg Famotidine (Famotidine 20 Mg Tablet) 20 mg PO BID [facility] Last Admin: 06/14/25 08:48 Dose: 20 mg Folic Acid (Folic Acid 1 Mg Tablet) 1 mg PO DAILY [facility] Last Admin: 06/14/25 08:47 Dose: 1 mg Hydroxyzine HCl (Hydroxyzine Hcl 50 Mg Tablet) 50 mg PO Q8H PRN PRN Reason: Anxiety Last Admin: 06/14/25 12:55 Dose: 50 mg Ibuprofen (Ibuprofen 800 Mg Tablet) 800 mg PO Q8H PRN PRN Reason: moderate pain Last Admin: 06/14/25 12:54 Dose: 800 mg Lactase (Lactase Tablet) 3 tab PO TIDWM [facility] Last Admin: 06/14/25 17:04 Dose: 3 tab Magnesium Hydroxide (Milk Of Magnesia 30 Ml Oral.Susp) 30 ml PO DAILY PRN PRN Reason: Constipation Magnesium Oxide (Magnesium Oxide 400 Mg Tablet) [facility] Last Admin: 06/14/25 17:03 Dose: 400 mg Metformin HCl (Metformin Hcl 500 Mg Tablet) 500 mg PO DAILY [facility] Last Admin: 06/14/25 08:51 Dose: 500 mg Methocarbamol (Methocarbamol 500 Mg Tablet) 500 mg PO TID PRN PRN Reason: severe pain Last Admin: 06/14/25 17:04 Dose: 500 mg Metoprolol Tartrate (Metoprolol Tartrate 50 Mg Tablet) 50 mg PO BID [facility]; Protocol Last Admin: 06/14/25 08:46 Dose: 50 mg Multivitamins/Vitamin C (Multivitamin Tablet) 1 tab PO DAILY [facility] Last Admin: 06/14/25 08:49 Dose: 1 tab Nicotine Polacrilex (Nicotine Polacrilex 2 Mg Gum) 2 mg BUCCAL Q2H PRN PRN Reason: Nicotine Cravings Nitroglycerin (Nitroglycerin 0.4 Mg Tab.Subl) 0.4 mg SUBLINGUAL [id number] PRN PRN Reason: chest pain Olanzapine (Olanzapine 5 Mg Tablet) 5 mg PO BID PRN PRN Reason: agitation Last Admin: 06/14/25 08:49 Dose: 5 mg Polyethylene Glycol (Polyethylene Glycol 3350 17 Gm Powd.Pack) 17 gm PO DAILY PRN PRN Reason: Constipation Last Admin: 06/12/25 14:45 Dose: 17 gm Sertraline HCl (Sertraline Hcl 100 Mg Tablet) 100 mg PO DAILY [facility] Last Admin: 06/14/25 08:50 Dose: 100 mg Simethicone (Simethicone 80 Mg Tab.Chew) 80 mg PO QIDWMHS [facility] Last Admin: 06/14/25 17:05 Dose: 80 mg Sucralfate (Sucralfate 1 Gm Tablet) 1 gm PO QIDACHS [facility] Last Admin: 06/14/25 17:03 Dose: 1 gm Tamsulosin HCl (Tamsulosin Hcl 0.4 Mg Capsule) 0.8 mg PO BEDTIME [facility] Last Admin: 06/13/25 20:37 Dose: 0.8 mg Trazodone HCl (Trazodone Hcl 50 Mg Tablet) 50 mg PO BEDTIME MRX1 PRN PRN Reason: Insomnia Last Admin: 06/13/25 23:33 Dose: 50 mg Trazodone HCl (Trazodone Hcl 100 Mg Tablet) 100 mg PO BEDTIME [facility] Last Admin: 06/13/25 20:37 Dose: 100 mg Venlafaxine HCl (Venlafaxine Hcl Er 37.5 Mg Cap.Er.24h) 37.5 mg PO DAILY [facility] Last Admin: 06/14/25 08:47 Dose: 37.5 mg Vitamin D (Cholecalciferol (Vitamin D3) 25 Mcg Tablet) 50 mcg PO DAILY [facility] Last Admin: 06/14/25 08:55 Dose: 50 mcg Allergies Allergies Allergy/AdvReac Type Severity Reaction Status Date / Time bupropion Allergy Rash Verified 06/09/25 19:07 haloperidol (From Haldol) Allergy Rash Verified 06/09/25 19:07 lactose Allergy Gastrointestinal Verified 06/09/25 19:07 Upset peanut Allergy Anaphylaxis Verified 06/09/25 19:07 ziprasidone Allergy Rash Verified 06/09/25 19:07 Assessment & Plan Assessment & Plan (1) Schizoaffective disorder, bipolar type: Status: Acute Code(s): F25.0 - Schizoaffective disorder, bipolar type (2) PTSD (post-traumatic stress disorder): Status: Acute Code(s): F43.10 - Post-traumatic stress disorder, unspecified (3) Coronary artery disease: Status: Acute Code(s): I25.10 - Atherosclerotic heart disease of [place] coronary artery without angina pectoris Plan Mr. Brink is a 59 y/o DWM with documented h/o schizophrenia, bipolar d/o, depression, PTSD, KASSIE, sleep apnea, HTN, CAD, hyponatremia, peripheral neuropathy, 3 ND's s/p CABG, unsteady gait, and type II DM who was brought to the [facility] ED due to AH and SI. He was transferred to [facility] for tx of severe depression, SI and psychotic sx. Plan: Admitted to for safety and stabilization Legal status- CV Admission medical consult ordered 5 minute safety checks due to fall risk. Uses a walker Meds- Continue current medications from residential list for now: Clozaril 50 mg qhs Clozaril 300 mg qhs for now (grp home list says 'bid at hs' and external med rec shows 300 mg qhs) Effexor XR 75 mg qam *per external med rec, it looks like pt is cross titrating from venlafaxine to sertraline, was previously on 225 mg qd. Will continue cross titration after clarifying when the doses were last adjusted diphenhydramine 50 mg qhs prn for [place] hydroxyzine 50 mg q 8 hrs prn for anxiety sertraline 100 mg qd trazodone 100 mg qhs acetaminophen 975 mg bid ASA 81 mg qam budesonide-formoterol 2 inhalations qd Calcium-Vit D 500mg-5 mcg tabs, 2 tabs po bid docusate 100 mg bid folic acid 1 mg qam ibuprofen 800 mg q 8 hrs prn for pain lactase 9000 unit tablet tid magnesium oxide 400 mg bid metformin 500 mg qam methocarbamol 500 mg q 8 hrs for muscle pain metoprolol 50 mg bid MVI qd nitroglycerin 0.4 mg SL q 5 min prn for chest pain u pt 3 doses simethicone 80 mg 4x/day after meals and at hs sucralfate 1 g 4x/day before meals tamsulosin 0.8 mg qhs Vit B complex qam Vit D3 50 mcg qam Will consider ECT 06/11: Trial GBP 100 mg TID for anxiety and pain. 06/12: DC Gabapentin. Monitor urinary retention/incontinence. He is on Tamsulosin. Continue current management and treatment plan. 06/13: Will refer to ECT due to inadequate response to multiple psychotropic medication trials including: current regimen- clozapine 350 mg qd, sertraline 100 mg qd, venlafaxine (tapering off, was up to 225 mg qd), trazodone 100 mg qhs Prior med trials: Prozac, Cymbalta, Lamictal, Strattera, Zyprexa, Adderall ER, Invega Sustenna, VPA -Will request hospitalist consult for risk stratification for ECT -Taper venlafaxine to 37.5 mg starting tomorrow 06/14: ECT ordered for tomorrow am. NPO except for meds with sips of water after midnight. Medically cleared for ECT today by Alejandra Dangelo NP ECT risk stratification. Patient without previous problems with anesthesia, has previously undergone ECT RCRI 0 points, no further cardiac workup or treatment indicated at this time. Patient denies any past problems with anesthesia. EKG pending, no evidence of ischemic changes Based on stated PMH, HPI, and physical exam, there are no There are no obvious contraindications to the planned procedure. Patient with moderate risk due to advancing age and history of coronary artery disease. Patient educated on: medication risk/benefits and ECT Informed Consent: understands Reason for continued inpatient stay Substantial Risk for: med/psych decompensation Time Spent With Patient Time: Total time managing care of this patient today __30__ minutes.
[2025-06-14 18:17] LABS: Troponin-I High Sensitivity < 2.7 ng/L (<3.5-35.0)
[2025-06-14 20:00] VITALS: BP 132/59; PULSE 71; RESP 19; TEMP 37; O2SAT 98
[2025-06-15] VITALS (13 sets, daily range): BP systolic 108–155; BP diastolic 59–88; PULSE 69–94; RESP 16–19; TEMP 36.1–37; O2SAT 94–99
--- NOTE | 2025-06-15 10:10 | HO.ANESPROP2 ---
Documented by User: Cheryl Veloz NP 06/15/25 10:23 HPI - Anesthesia Eval Consult details Narrative: 59 yr old male for ECT, new [place] [facility] Reported CP during current admission, troponins, EKG unremarkable; seen by hospitalist for ECT clearance H/O CVA: unsure of date CAD: s/p 3 vessel CABG ?10 yrs ago, no stenting; ECHO done at [facility] 2022 showing normal EF, no wall motion abnormalites; Myocardial perfusion study 01/2023 negative for ischemia. CHARITY: not on CPAP PMFSH Active Problems Active Problems: All Active Problems PTSD (post-traumatic stress disorder) (Acute) Schizoaffective disorder, bipolar type (Acute) Coronary artery disease (Acute) Social History Social History Household Members: Other Household Members Other:: retirement residents Housing: Other Housing Other:: retirement Do you presently have visiting nurse or other home services: Yes ([employer]) Comment: 5's Patient Tobacco Use Status: Former Tobacco user Tobacco use type: Cigarette Cigarettes Per Day: 3 Years Smoked: 43 Smoked in Last 30 Days: Yes e-Cigarette/Vaping Use: Never Used Patient Interested in Nicotine Replacement: No Patient Given Instructions on How to Stop Smoking: Yes Date Education Initiated: 06/09/25 Second Hand Smoke Exposure: No Currently Displaying Signs/Symptoms of Drug Intoxication Withdrawal: No Have you been hit, kicked, punched, or otherwise hurt by someone within the past year? If so, by whom?: No Do you feel safe in your current relationship?: No Current Relationship Is there a partner from a previous relationship who is making you feel unsafe now?: No Are you made to feel afraid or neglected: No Advance Directives: No Advance Directives Information Provided: No Advance Directives on File: No Do you have thoughts of harming others: None Do you have a plan to hurt others: No Plan Recently lost weight without trying: No How much weight loss: Not applicable Eating poorly because of decreased appetite: No Nutrition screen score: 0 Nutrition Risks: No Nutritional Risk service: No Sexual orientation: Straight/Heterosexual Meds Allergies Allergy/AdvReac Type Severity Reaction Status Date / Time bupropion Allergy Rash Verified 06/09/25 19:07 haloperidol (From Haldol) Allergy Rash Verified 06/09/25 19:07 lactose Allergy Gastrointestinal Verified 06/09/25 19:07 Upset peanut Allergy Anaphylaxis Verified 06/09/25 19:07 ziprasidone Allergy Rash Verified 06/09/25 19:07 Active Medications: Current Medications Acetaminophen (Acetaminophen 325 Mg Tablet) 975 mg PO BID PRN PRN Reason: Pain, Moderate(Pain Scale 4-6) Last Admin: 06/14/25 08:52 Dose: 975 mg Al Hydroxide/Mg Hydroxide (Magnesium Hydrox/Alum Hydrox 30 Ml Oral.Susp) 30 ml PO Q6H PRN PRN Reason: Heartburn/Nausea Aspirin (Aspirin Enteric Coated 81 Mg Tablet.Dr) 81 mg PO DAILY [facility], [facility] Last Admin: 06/14/25 08:51 Dose: 81 mg Atorvastatin Calcium (Atorvastatin Calcium 40 Mg Tablet) 40 mg PO BEDTIME [facility], [facility] Last Admin: 06/14/25 20:51 Dose: 40 mg Budesonide (Budesonide 180 Mcg Aer.Pow.Ba) 2 puff INHALE RDAILY [facility], [facility] Last Admin: 06/14/25 08:46 Dose: 2 puff Calcium Carbonate/Cholecalciferol (Calcium + Vitamin D 250 Mg Tablet) 500 mg PO BID [facility], [facility] Last Admin: 06/14/25 20:51 Dose: 500 mg Clozapine (Clozapine 25 Mg Tablet) 50 mg PO BEDTIME [facility] Last Admin: 06/14/25 20:51 Dose: 50 mg Clozapine (Clozapine 100 Mg Tablet) 300 mg PO BEDTIME [facility] Last Admin: 06/14/25 20:49 Dose: 300 mg Diphenhydramine HCl (Diphenhydramine Hcl 25 Mg Capsule) 50 mg PO BEDTIME PRN PRN Reason: Insomnia Docusate Sodium (Docusate Sodium 100 Mg Capsule) 100 mg PO BID [facility] Last Admin: 06/14/25 20:51 Dose: 100 mg Famotidine (Famotidine 20 Mg Tablet) 20 mg PO BID [facility] Last Admin: 06/14/25 20:51 Dose: 20 mg Folic Acid (Folic Acid 1 Mg Tablet) 1 mg PO DAILY [facility] Last Admin: 06/14/25 08:47 Dose: 1 mg Hydroxyzine HCl (Hydroxyzine Hcl 50 Mg Tablet) 50 mg PO Q8H PRN PRN Reason: Anxiety Last Admin: 06/14/25 12:55 Dose: 50 mg Ibuprofen (Ibuprofen 800 Mg Tablet) 800 mg PO Q8H PRN PRN Reason: moderate pain Last Admin: 06/14/25 12:54 Dose: 800 mg Lactase (Lactase Tablet) 3 tab PO TIDWM [facility] Last Admin: 06/14/25 17:04 Dose: 3 tab Magnesium Hydroxide (Milk Of Magnesia 30 Ml Oral.Susp) 30 ml PO DAILY PRN PRN Reason: Constipation Magnesium Oxide (Magnesium Oxide 400 Mg Tablet) 400 mg PO BIDPC [facility], [facility] Last Admin: 06/14/25 17:03 Dose: 400 mg Metformin HCl (Metformin Hcl 500 Mg Tablet) 500 mg PO DAILY [facility] Last Admin: 06/14/25 08:51 Dose: 500 mg Methocarbamol (Methocarbamol 500 Mg Tablet) 500 mg PO TID PRN PRN Reason: severe pain Last Admin: 06/14/25 17:04 Dose: 500 mg Metoprolol Tartrate (Metoprolol Tartrate 50 Mg Tablet) 50 mg PO BID [facility], [facility]; Protocol Last Admin: 06/14/25 20:50 Dose: 50 mg Multivitamins/Vitamin C (Multivitamin Tablet) 1 tab PO DAILY [facility] Last Admin: 06/14/25 08:49 Dose: 1 tab Nicotine Polacrilex (Nicotine Polacrilex 2 Mg Gum) 2 mg BUCCAL Q2H PRN PRN Reason: Nicotine Cravings Nitroglycerin (Nitroglycerin 0.4 Mg Tab.Subl) 0.4 mg SUBLINGUAL Q5MX3 PRN PRN Reason: chest pain Olanzapine (Olanzapine 5 Mg Tablet) 5 mg PO BID PRN PRN Reason: agitation Last Admin: 06/14/25 08:49 Dose: 5 mg Polyethylene Glycol (Polyethylene Glycol 3350 17 Gm Powd.Pack) 17 gm PO DAILY PRN PRN Reason: Constipation Last Admin: 06/12/25 14:45 Dose: 17 gm Sertraline HCl (Sertraline Hcl 100 Mg Tablet) 100 mg PO DAILY [facility] Last Admin: 06/14/25 08:50 Dose: 100 mg Simethicone (Simethicone 80 Mg Tab.Chew) 80 mg PO QIDWMHS [facility] Last Admin: 06/14/25 20:50 Dose: 80 mg Sucralfate (Sucralfate 1 Gm Tablet) 1 gm PO QIDACHS [facility], [facility] Last Admin: 06/14/25 20:50 Dose: 1 gm Tamsulosin HCl (Tamsulosin Hcl 0.4 Mg Capsule) 0.8 mg PO BEDTIME [facility] Last Admin: 06/14/25 20:50 Dose: 0.8 mg Trazodone HCl (Trazodone Hcl 50 Mg Tablet) 50 mg PO BEDTIME MRX1 PRN PRN Reason: Insomnia Last Admin: 06/13/25 23:33 Dose: 50 mg Trazodone HCl (Trazodone Hcl 100 Mg Tablet) 100 mg PO BEDTIME [facility] Last Admin: 06/14/25 20:51 Dose: 100 mg Venlafaxine HCl (Venlafaxine Hcl Er 37.5 Mg Cap.Er.24h) 37.5 mg PO DAILY [facility] Last Admin: 06/14/25 08:47 Dose: 37.5 mg Vitamin D (Cholecalciferol (Vitamin D3) 25 Mcg Tablet) 50 mcg PO DAILY [facility] Last Admin: 06/14/25 08:55 Dose: 50 mcg Home Medications ?Medication ?Instructions ?Recorded ?Confirmed ?Last Taken ?Type aspirin 81 mg tablet,delayed 81 mg PO DAILY 06/09/25 06/09/25 06/08/25 History release atorvastatin 40 mg tablet 40 mg PO BEDTIME cholesterol 06/09/25 06/09/25 06/08/25 History calcium 500 mg (as 2 tab PO BID 06/09/25 06/09/25 Unknown History carbonate)-vitamin D3 5 mcg (200 unit) tablet (Oyster Shell Calcium-Vitamin D3) cholecalciferol (vitamin D3) 50 50 mcg PO DAILY 06/09/25 06/09/25 06/08/25 History mcg (2,000 unit) capsule clozapine 100 mg tablet 300 mg PO BEDTIME 06/09/25 06/09/25 06/08/25 History clozapine 50 mg tablet 50 mg PO BEDTIME 06/09/25 06/09/25 06/08/25 History dextroamphetamine-amphetamine ER 2 cap PO DAILY 06/09/25 06/09/25 06/08/25 History 10 mg 24hr capsule,extend release docusate sodium 100 mg capsule 100 mg PO BID 06/09/25 06/09/25 06/08/25 History duloxetine 60 mg capsule,delayed 60 mg PO DAILY 06/09/25 06/09/25 06/08/25 History release famotidine 20 mg tablet 20 mg PO BID acid reflux 06/09/25 06/09/25 Unknown History guanfacine 1 mg tablet,extended 1 mg PO DAILY 06/09/25 06/09/25 Unknown History release 24 hr ibuprofen 800 mg tablet 800 mg PO Q8H PRN pain 06/09/25 06/09/25 Unknown History lorazepam 1 mg tablet 1 mg PO BEDTIME PRN insomnia 06/09/25 06/09/25 06/08/25 History metoprolol succinate 25 mg 75 mg PO DAILY 06/09/25 06/09/25 Unknown History tablet,extended release 24 hr multivitamin with folic acid 400 1 tab PO DAILY 06/09/25 06/09/25 06/08/25 History mcg tablet (Daily-Avtar (with folic acid)) sertraline 100 mg tablet 100 mg PO DAILY 06/09/25 06/09/25 06/08/25 History sucralfate 1 gram tablet 1 g PO QID 06/09/25 06/09/25 Unknown History tamsulosin 0.4 mg capsule 0.4 mg PO BEDTIME 06/09/25 06/09/25 06/03/25 History trazodone 100 mg tablet 100 mg PO BEDTIME 06/09/25 06/09/25 06/08/25 History venlafaxine 75 mg capsule,extended 75 mg PO QAM 06/09/25 06/09/25 06/08/25 History release 24 hr vitamin B complex 1 cap PO DAILY 06/09/25 06/09/25 06/08/25 History Exam Height,Weight and Vital Signs: Height 6 ft Weight 92.193 kg Last Vital Signs Temp 98.6 F 06/15/25 06:05 Pulse 88 06/15/25 06:05 Resp 17 06/15/25 06:05 BP 120/86 06/15/25 06:05 Pulse Ox 98 06/15/25 06:05 O2 Del Method Room Air 06/14/25 20:00 Pertinent Lab Results Pertinent Lab Results: Laboratory Tests 06/10/25 06/14/25 06/14/25 08:07 14:27 17:34 WBC 7.9 RBC 4.55 L Hgb 13.0 L Hct 38.2 L MCV 84.0 MCH 28.6 MCHC 34.0 RDW 13.4 Plt Count 284 MPV 9.2 L Immature Gran % (Auto) 0.3 Neut % (Auto) 68.0 Lymph % (Auto) 21.6 Rock % (Auto) 7.3 Eos % (Auto) 1.9 Baso % (Auto) 0.9 Lymph # (Auto) 1.7 Rock # (Auto) 0.6 Eos # (Auto) 0.2 Baso # (Auto) 0.1 Abs Immat Gran (auto) 0.02 Absolute Neuts (auto) 5.7 5.4 Absolute Nucleated RBC 0.000 Nucleated RBC % (auto) 0.0 Sodium 141 139 Potassium 3.9 4.3 Chloride 108 103 Carbon Dioxide 23 26 Anion Gap 14 14 BUN 8 L 19 H Creatinine 0.94 1.19 Estim Creat Clear Calc 91.7 72.4 Estimated GFR > 60 > 60 Random Glucose 110 135 H Estimat Average Glucose 114 Hemoglobin A1c % 5.6 Calcium 9.5 9.8 Total Bilirubin 0.3 0.3 AST 20 22 ALT 27 42 H Alkaline Phosphatase 95 93 Troponin I High Sens < 2.7 Total Protein 7.5 7.6 Albumin 4.7 4.8 Triglycerides 298 H Cholesterol 159 LDL Cholesterol, Calc 73 HDL Cholesterol 27 L TSH 0.86 Free T4 1.01 Narrative Narrative: EKG 06/13/25 Vent. Rate : 68 BPM Atrial Rate : 68 BPM P-R Int : 146 ms QRS Dur : 96 ms QT Int : 416 ms P-R-T Axes : 67 3 56 degrees QTcB Int : 442 ms Normal sinus rhythm Normal ECG No previous ECGs available ECHO 01/2023 Normal left ventricular size and function with EF 60-65%. No focal wall motion abnormalities. The left ventricular wall thickness is mildly increased. Normal right ventricular size and function. No significant valvular disease. Myocardial perfusion 01/2023 No evidence of myocardial ischemia. There is a small area of prior myocardial infarction in the [place] territory. Normal left ventricular size and function. No EKG evidence of ischemia. Documented by User: Stephanie Duke MD 06/15/25 13:28 [facility] Family History Family history of problems with anesthesia: No Surgical History History of Problems with Anesthesia: No Social History Social History Household Members: Other Household Members Other:: retirement residents Housing: Other Housing Other:: retirement Do you presently have visiting nurse or other home services: Yes ([employer]) Comment: 5's Patient Tobacco Use Status: Former Tobacco user Tobacco use type: Cigarette Cigarettes Per Day: 3 Years Smoked: 43 Smoked in Last 30 Days: Yes e-Cigarette/Vaping Use: Never Used Patient Interested in Nicotine Replacement: No Patient Given Instructions on How to Stop Smoking: Yes Date Education Initiated: 06/09/25 Second Hand Smoke Exposure: No Currently Displaying Signs/Symptoms of Drug Intoxication Withdrawal: No Have you been hit, kicked, punched, or otherwise hurt by someone within the past year? If so, by whom?: No Do you feel safe in your current relationship?: No Current Relationship Is there a partner from a previous relationship who is making you feel unsafe now?: No Are you made to feel afraid or neglected: No Advance Directives: No Advance Directives Information Provided: No Advance Directives on File: No Do you have thoughts of harming others: None Do you have a plan to hurt others: No Plan Recently lost weight without trying: No How much weight loss: Not applicable Eating poorly because of decreased appetite: No Nutrition screen score: 0 Nutrition Risks: No Nutritional Risk service: No Sexual orientation: Straight/Heterosexual Meds Allergies Allergy/AdvReac Type Severity Reaction Status Date / Time bupropion Allergy Rash Verified 06/09/25 19:07 haloperidol (From Haldol) Allergy Rash Verified 06/09/25 19:07 lactose Allergy Gastrointestinal Verified 06/09/25 19:07 Upset peanut Allergy Anaphylaxis Verified 06/09/25 19:07 ziprasidone Allergy Rash Verified 06/09/25 19:07 Home Medications ?Medication ?Instructions ?Recorded ?Confirmed ?Last Taken ?Type aspirin 81 mg tablet,delayed 81 mg PO DAILY 06/09/25 06/09/25 06/08/25 History release atorvastatin 40 mg tablet 40 mg PO BEDTIME cholesterol 06/09/25 06/09/25 06/08/25 History calcium 500 mg (as 2 tab PO BID 06/09/25 06/09/25 Unknown History carbonate)-vitamin D3 5 mcg (200 unit) tablet (Oyster Shell Calcium-Vitamin D3) cholecalciferol (vitamin D3) 50 50 mcg PO DAILY 06/09/25 06/09/25 06/08/25 History mcg (2,000 unit) capsule clozapine 100 mg tablet 300 mg PO BEDTIME 06/09/25 06/09/25 06/08/25 History clozapine 50 mg tablet 50 mg PO BEDTIME 06/09/25 06/09/25 06/08/25 History dextroamphetamine-amphetamine ER 2 cap PO DAILY 06/09/25 06/09/25 06/08/25 History 10 mg 24hr capsule,extend release docusate sodium 100 mg capsule 100 mg PO BID 06/09/25 06/09/25 06/08/25 History duloxetine 60 mg capsule,delayed 60 mg PO DAILY 06/09/25 06/09/25 06/08/25 History release famotidine 20 mg tablet 20 mg PO BID acid reflux 06/09/25 06/09/25 Unknown History guanfacine 1 mg tablet,extended 1 mg PO DAILY 06/09/25 06/09/25 Unknown History release 24 hr ibuprofen 800 mg tablet 800 mg PO Q8H PRN pain 06/09/25 06/09/25 Unknown History lorazepam 1 mg tablet 1 mg PO BEDTIME PRN insomnia 06/09/25 06/09/25 06/08/25 History metoprolol succinate 25 mg 75 mg PO DAILY 06/09/25 06/09/25 Unknown History tablet,extended release 24 hr multivitamin with folic acid 400 1 tab PO DAILY 06/09/25 06/09/25 06/08/25 History mcg tablet (Daily-Avtar (with folic acid)) sertraline 100 mg tablet 100 mg PO DAILY 06/09/25 06/09/25 06/08/25 History sucralfate 1 gram tablet 1 g PO QID 06/09/25 06/09/25 Unknown History tamsulosin 0.4 mg capsule 0.4 mg PO BEDTIME 06/09/25 06/09/25 06/03/25 History trazodone 100 mg tablet 100 mg PO BEDTIME 06/09/25 06/09/25 06/08/25 History venlafaxine 75 mg capsule,extended 75 mg PO QAM 06/09/25 06/09/25 06/08/25 History release 24 hr vitamin B complex 1 cap PO DAILY 06/09/25 06/09/25 06/08/25 History Exam Airway Mallampati Class: II TM Dist: >3cm Neck ROM: Full Heart: rrr Lungs: cta Assessment and Plan Assessment Anesthesia Assessment: Anesthesia Plan Discussed and Chart Reviewed Final Anesthetic Review Family History of Problems with Anesthesia: No History of Problems with Anesthesia: No NPO: Yes ASA Class: III Final Preanesthetic Review: No Changes in Pt Med Stat, Meds/Allgs Chart Reviewed and Consent Obtained/Reviewed Patient Risk: Intermediate Procedure Risk: Intermediate Anesthetic Plan Anesthetic Plan: GA Disposition: Standard PACU
[2025-06-15] MEDS: Venlafaxine HCl ER 37.5 MG CAP.ER.24H PO (11:19)
--- NOTE | 2025-06-15 13:38 | MHC.SHP ---
Pre-Procedural Eval Section A - 24 Hr Update-Section A only Date of Service: 06/15/25 The patient is an INPATIENT: Yes Changes since office visit: No Cold of Flu in the past 2 weeks, No New Medical Problems, No Changes in Medication and No Patient answered all questions The patient has been examined within 24 hours of the surgical procedure. The History & Physical has been completed within 30 days and I have reviewed it.: Yes Section B - Complete if H&P > 30 days Chief Complaint: SI Details of Present Illness: Admitted to [facility] due to depression/SI. He has had multiple psychiatric admissions in past yr and multiple failed med trials. Had previous ECT series yrs ago with good response. Reviewed hospitalist ECT clearance note from yesterday Relevant Family History (Specify if Yes): No Relevant Social History: None Present Medications: see Short Stay Collaborative assessment Medical History: Significant History (reviewed- see medical clearance note from 06/15/25) Allergies: Allergies Allergy/AdvReac Type Severity Reaction Status Date / Time bupropion Allergy Rash Verified 06/09/25 19:07 haloperidol (From Haldol) Allergy Rash Verified 06/09/25 19:07 lactose Allergy Gastrointestinal Verified 06/09/25 19:07 Upset peanut Allergy Anaphylaxis Verified 06/09/25 19:07 ziprasidone Allergy Rash Verified 06/09/25 19:07 Plan Diagnosis/Plan: Unchanged (MDD- Proceed with ECT ) I have reviewed the history and physical and performed a pertinent physical examination on my patient. No changes have occurred unless specified. Time Spent With Patient Time: Total time managing care of this patient today _10___ minutes.
--- NOTE | 2025-06-15 14:15 | HO.ECTPROC ---
ECT Procedure Note Diagnosis/Treatment Date of Service: 06/15/25 Diagnosis: Schizoaffective Disorder Current Treatment Number: 1 Treatment: Series Interval Clinical Notes: Mr. Brink is a 59 y/o M with h/o schizoaffective d/o bipolar type, PTSD, sleep apnea HTN, CAD, hyponatemia, 3 NV's s/p CABG ~2014 and type II DM who is admitted to [facility] due to severe MDD + SI. Pt has had numerous failed psychotropic med trials and multiple inpatient psychiatric admissions in the past yr for tx of depression + SI. He underwent a previous ECT series several yrs ago (can't recall where) with positive effect. T/W reviewed the hospitalist medical clearance note for ECT from yesterday and pt is medically cleared. Pt signed ECT consent today. Time: Total time managing care of this patient today _30___ minutes. ECT Settings Device: THYMATRON DGx Electrode Placement: Right Unilateral Program/Pulse Width: 0.25 Energy Percent: 35 Seizure Duration By EEG (in seconds): 34 (good tracing & postictal suppression ) By Motor Observation (in seconds): 53 Medications Administration General Anesthetic: Etomidate (16 mg) Muscle Relaxant: Succinylcholine (100 mg) Ancillary Medications Anti-emetics: Zofran - Pre ECT (4 mg) Airway Management Airway Management: Bag Mask Ventilation Treatment Recommendations No Changes Recommended: No change (Tolerated the procedure well. Titrate energy to 60% for next tx) Pt Tolerated Procedure w/o Issue: Yes
[2025-06-15] MEDS: Calcium + Vitamin D 250 MG TABLET 500 MG PO ×2 (15:40→20:41)
[2025-06-15] MEDS: Aspirin Enteric Coated 81 MG TABLET.DR PO (15:41)
--- NOTE | 2025-06-15 19:32 | HO.PSYCHPN ---
Subjective Subjective Date of Service: 06/15/25 Reason For Visit: SI Interim History: Chart reviewed, case discussed in tx team T/W met with pt prior to ECT and provided his tx. He was anxious about ECT during our mtg on the unit but responded well to reassurance. He again noted that he had woken up from anesthesia during open heart surgery, which was very traumatic. He was anxious and mildly agitated after waking up from ECT and was given 2 mg midazolam with good effect. He reported this am that he is still miserable, depressed but hopeful that ECT will help. He denied SI. Denies med SE. He has been generally keeping to himself in his room but is visible in the milieu at times, utilizing his walker Medication Compliance: Yes Side effects from medications: No Mental Status Exam Mental Status Exam Narrative: Appearance: grooming & hygiene wnl. good eye contact. Attitude:Cooperative Speech: Fluent and wnl in regard to volume, tone, prosody Motor activity: chewing movements/lip smacking Mood: as noted above Affect: appropriate, generally constricted Thought process: as noted above Thought content: as noted above. Perception: Denies AH/VH and does not appear to respond to internal stimuli Insight: fair Judgment: fair Diagnostics Vital Signs (24Hr): Vital Signs - 24 hr 06/14/25 20:00 06/15/25 06:05 06/15/25 07:00 Temperature 98.6 F 98.6 F 98.6 F Pulse Rate 71 88 88 Respiratory Rate 19 17 17 Blood Pressure 132/59 L 120/86 120/86 Pulse Oximetry 98 98 98 Oxygen Delivery Method Room Air Room Air Oxygen Flow Rate 06/15/25 11:20 06/15/25 13:27 06/15/25 14:32 Temperature 97 F 97.3 F Pulse Rate 92 69 94 Respiratory Rate 16 16 Blood Pressure 132/88 108/66 155/83 H Pulse Oximetry 96 98 Oxygen Delivery Method Room Air Nasal Cannula with ETCO2 Oxygen Flow Rate 2 06/15/25 14:37 06/15/25 14:42 06/15/25 14:47 Temperature Pulse Rate 91 87 82 Respiratory Rate 19 17 17 Blood Pressure 152/86 H 152/82 H 142/68 H Pulse Oximetry 96 94 95 Oxygen Delivery Method Nasal Cannula with ETCO2 Nasal Cannula with ETCO2 Room Air Oxygen Flow Rate 2 2 06/15/25 15:05 06/15/25 15:12 06/15/25 15:13 Temperature 97.0 F 97.1 F 97.1 F Pulse Rate 79 78 78 Respiratory Rate 18 16 16 Blood Pressure 123/60 132/72 132/72 Pulse Oximetry 94 96 96 Oxygen Delivery Method Room Air Room Air Oxygen Flow Rate BMI result Body Mass Index 27.6 Labs 06/14/25 14:27 06/17/25 17:36 Labs: Laboratory Results - last 48 hr 06/14/25 06/14/25 14:27 17:34 WBC 7.9 RBC 4.55 L Hgb 13.0 L Hct 38.2 L MCV 84.0 MCH 28.6 MCHC 34.0 RDW 13.4 Plt Count 284 MPV 9.2 L Immature Gran % (Auto) 0.3 Neut % (Auto) 68.0 Lymph % (Auto) 21.6 [place] % (Auto) 7.3 Eos % (Auto) 1.9 Baso % (Auto) 0.9 Lymph # (Auto) 1.7 [place] # (Auto) 0.6 Eos # (Auto) 0.2 Baso # (Auto) 0.1 Abs Immat Gran (auto) 0.02 Absolute Neuts (auto) 5.4 Absolute Nucleated RBC 0.000 Nucleated RBC % (auto) 0.0 Sodium 139 Potassium 4.3 Chloride 103 Carbon Dioxide 26 Anion Gap 14 BUN 19 H Creatinine 1.19 Estim Creat Clear Calc 72.4 Estimated GFR > 60 Random Glucose 135 H Calcium 9.8 Total Bilirubin 0.3 AST 22 ALT 42 H Alkaline Phosphatase 93 Troponin I High Sens < 2.7 Total Protein 7.6 Albumin 4.8 Imaging Radiology Impressions: ITS Impressions Chest X-Ray 06/14/25 16:43 IMPRESSION: No evidence for acute disease in the chest. Electronically signed by: Concepcion Delarosa MD 06/14/2025 04:54 PM EDT RP Medications Medications Current Medications Acetaminophen (Acetaminophen 325 Mg Tablet) 975 mg PO BID PRN PRN Reason: Pain, Moderate(Pain Scale 4-6) Last Admin: 06/14/25 08:52 Dose: 975 mg Al Hydroxide/Mg Hydroxide (Magnesium Hydrox/Alum Hydrox 30 Ml Oral.Susp) 30 ml PO Q6H PRN PRN Reason: Heartburn/Nausea Aspirin (Aspirin Enteric Coated 81 Mg Tablet.) 81 mg PO DAILY [facility] Last Admin: 06/15/25 15:41 Dose: 81 mg Atorvastatin Calcium (Atorvastatin Calcium 40 Mg Tablet) 40 mg PO BEDTIME [facility] Last Admin: 06/14/25 20:51 Dose: 40 mg Budesonide (Budesonide 180 Mcg Aer.Pow.Ba) 2 puff INHALE RDAILY [facility] Last Admin: 06/15/25 11:27 Dose: Not Given Calcium Carbonate/Cholecalciferol (Calcium + Vitamin D 250 Mg Tablet) 500 mg PO BID [facility] Last Admin: 06/15/25 15:40 Dose: 500 mg Clozapine (Clozapine 25 Mg Tablet) 50 mg PO BEDTIME [facility] Last Admin: 06/14/25 20:51 Dose: 50 mg Clozapine (Clozapine 100 Mg Tablet) 300 mg PO BEDTIME [facility] Last Admin: 06/14/25 20:49 Dose: 300 mg Diphenhydramine HCl (Diphenhydramine Hcl 25 Mg Capsule) 50 mg PO BEDTIME PRN PRN Reason: Insomnia Docusate Sodium (Docusate Sodium 100 Mg Capsule) 100 mg PO BID [facility] Last Admin: 06/15/25 15:41 Dose: 100 mg Famotidine (Famotidine 20 Mg Tablet) 20 mg PO BID [facility] Last Admin: 06/15/25 11:19 Dose: 20 mg Folic Acid (Folic Acid 1 Mg Tablet) 1 mg PO DAILY [facility] Last Admin: 06/15/25 15:41 Dose: 1 mg Hydroxyzine HCl (Hydroxyzine Hcl 50 Mg Tablet) 50 mg PO Q8H PRN PRN Reason: Anxiety Last Admin: 06/14/25 12:55 Dose: 50 mg Ibuprofen (Ibuprofen 800 Mg Tablet) 800 mg PO Q8H PRN PRN Reason: moderate pain Last Admin: 06/14/25 12:54 Dose: 800 mg Lactase (Lactase Tablet) 3 tab PO TIDWM [facility] Last Admin: 06/15/25 16:56 Dose: 3 tab Magnesium Hydroxide (Milk Of Magnesia 30 Ml Oral.Susp) 30 ml PO DAILY PRN PRN Reason: Constipation Magnesium Oxide (Magnesium Oxide 400 Mg Tablet) 400 mg PO BIDPC [facility] Last Admin: 06/15/25 16:56 Dose: 400 mg Metformin HCl (Metformin Hcl 500 Mg Tablet) 500 mg PO DAILY [facility] Last Admin: 06/15/25 16:56 Dose: 500 mg Methocarbamol (Methocarbamol 500 Mg Tablet) 500 mg PO TID PRN PRN Reason: severe pain Last Admin: 06/14/25 17:04 Dose: 500 mg Metoprolol Tartrate (Metoprolol Tartrate 50 Mg Tablet) 50 mg PO BID [facility]; Protocol Last Admin: 06/15/25 11:20 Dose: 50 mg Multivitamins/Vitamin C (Multivitamin Tablet) 1 tab PO DAILY [facility] Last Admin: 06/15/25 15:40 Dose: 1 tab Naloxone HCl (Naloxone Hcl 0.4 Mg/Ml Vial) 0.04 mg IVPUSH Q5M PRN PRN Reason: Excessive sedation or RR < 8 Nicotine Polacrilex (Nicotine Polacrilex 2 Mg Gum) 2 mg BUCCAL Q2H PRN PRN Reason: Nicotine Cravings Nitroglycerin (Nitroglycerin 0.4 Mg Tab.Subl) 0.4 mg SUBLINGUAL Q5MX3 PRN PRN Reason: chest pain Olanzapine (Olanzapine 5 Mg Tablet) 5 mg PO BID PRN PRN Reason: agitation Last Admin: 06/14/25 08:49 Dose: 5 mg Polyethylene Glycol (Polyethylene Glycol 3350 17 Gm Powd.Pack) 17 gm PO DAILY PRN PRN Reason: Constipation Last Admin: 06/12/25 14:45 Dose: 17 gm Sertraline HCl (Sertraline Hcl 100 Mg Tablet) 100 mg PO DAILY [facility] [place] Last Admin: 06/15/25 11:18 Dose: 100 mg Simethicone (Simethicone 80 Mg Tab.Chew) 80 mg PO QIDWMHS [facility] Last Admin: 06/15/25 16:56 Dose: 80 mg Sucralfate (Sucralfate 1 Gm Tablet) 1 gm PO QIDACHS [facility] [place] Last Admin: 06/15/25 16:56 Dose: 1 gm Tamsulosin HCl (Tamsulosin Hcl 0.4 Mg Capsule) 0.8 mg PO BEDTIME [facility] Last Admin: 06/14/25 20:50 Dose: 0.8 mg Trazodone HCl (Trazodone Hcl 50 Mg Tablet) 50 mg PO BEDTIME MRX1 PRN PRN Reason: Insomnia Last Admin: 06/13/25 23:33 Dose: 50 mg Trazodone HCl (Trazodone Hcl 100 Mg Tablet) 100 mg PO BEDTIME [facility] Last Admin: 06/14/25 20:51 Dose: 100 mg Venlafaxine HCl (Venlafaxine Hcl Er 37.5 Mg Cap.Er.24h) 37.5 mg PO DAILY [facility] Last Admin: 06/15/25 11:19 Dose: 37.5 mg Vitamin D (Cholecalciferol (Vitamin D3) 25 Mcg Tablet) 50 mcg PO DAILY [facility] [place] Last Admin: 06/15/25 15:40 Dose: 50 mcg Allergies Allergies Allergy/AdvReac Type Severity Reaction Status Date / Time bupropion Allergy Rash Verified 06/09/25 19:07 haloperidol (From Haldol) Allergy Rash Verified 06/09/25 19:07 lactose Allergy Gastrointestinal Verified 06/09/25 19:07 Upset peanut Allergy Anaphylaxis Verified 06/09/25 19:07 ziprasidone Allergy Rash Verified 06/09/25 19:07 Assessment & Plan Assessment & Plan (1) Schizoaffective disorder, bipolar type: Status: Acute Code(s): F25.0 - Schizoaffective disorder, bipolar type (2) PTSD (post-traumatic stress disorder): Status: Acute Code(s): F43.10 - Post-traumatic stress disorder, unspecified (3) Coronary artery disease: Status: Acute Code(s): I25.10 - Atherosclerotic heart disease of [place] coronary artery without angina pectoris Plan Mr. Brink is a 59 y/o DWM with documented h/o schizophrenia, bipolar d/o, depression, PTSD, KASSIE, sleep apnea, HTN, CAD, hyponatremia, peripheral neuropathy, 3 ND's s/p CABG, unsteady gait, and type II DM who was brought to the [facility] ED due to AH and SI. He was transferred to [facility] for tx of severe depression, SI and psychotic sx. Plan: Admitted to for safety and stabilization Legal status- CV Admission medical consult ordered 5 minute safety checks due to fall risk. Uses a walker Meds- Continue current medications from intermediate list for now: Clozaril 50 mg qhs Clozaril 300 mg qhs for now (grp home list says 'bid at hs' and external med rec shows 300 mg qhs) Effexor XR 75 mg qam *per external med rec, it looks like pt is cross titrating from venlafaxine to sertraline, was previously on 225 mg qd. Will continue cross titration after clarifying when the doses were last adjusted diphenhydramine 50 mg qhs prn for insomna hydroxyzine 50 mg q 8 hrs prn for anxiety sertraline 100 mg qd trazodone 100 mg qhs acetaminophen 975 mg bid ASA 81 mg qam budesonide-formoterol 2 inhalations qd Calcium-Vit D 500mg-5 mcg tabs, 2 tabs po bid docusate 100 mg bid folic acid 1 mg qam ibuprofen 800 mg q 8 hrs prn for pain lactase 9000 unit tablet tid magnesium oxide 400 mg bid metformin 500 mg qam methocarbamol 500 mg q 8 hrs for muscle pain metoprolol 50 mg bid MVI qd nitroglycerin 0.4 mg SL q 5 min prn for chest pain u pt 3 doses simethicone 80 mg 4x/day after meals and at hs sucralfate 1 g 4x/day before meals tamsulosin 0.8 mg qhs Vit B complex qam Vit D3 50 mcg qam Will consider ECT 06/11: Trial GBP 100 mg TID for anxiety and pain. 06/12: TYE Gabapentin. Monitor urinary retention/incontinence. He is on Tamsulosin. Continue current management and treatment plan. 06/13: Will refer to ECT due to inadequate response to multiple psychotropic medication trials including: current regimen- clozapine 350 mg qd, sertraline 100 mg qd, venlafaxine (tapering off, was up to 225 mg qd), trazodone 100 mg qhs Prior med trials: Prozac, Cymbalta, Lamictal, Strattera, Zyprexa, Adderall ER, Invega Sustenna, VPA -Will request hospitalist consult for risk stratification for ECT -Taper venlafaxine to 37.5 mg starting tomorrow 06/14: ECT ordered for tomorrow am. NPO except for meds with sips of water after midnight. Medically cleared for ECT today by Alejandra Dangelo NP ECT risk stratification. Patient without previous problems with anesthesia, has previously undergone ECT RCRI 0 points, no further cardiac workup or treatment indicated at this time. Patient denies any past problems with anesthesia. EKG pending, no evidence of ischemic changes Based on stated PMH, HPI, and physical exam, there are no There are no obvious contraindications to the planned procedure. Patient with moderate risk due to advancing age and history of coronary artery disease. 06/15: Completed ECT #1 today (RUL) and tolerated it well. Will continue current tx plan for now, with ECT #2 scheduled for Fri, 06/17 Reason for continued inpatient stay Substantial Risk for: med/psych decompensation Time Spent With Patient Time: Total time managing care of this patient today _15__ minutes.
--- NOTE | 2025-06-16 01:13 | PC.NURSE ---
Pt voided a large amount of urine prior to bladder scan. Post-void residual 22mL. No action needed at this time. Pt tolerated procedure well.
[2025-06-16 07:44] VITALS: BP 142/67; PULSE 98; RESP 20; TEMP 36.7; O2SAT 96
[2025-06-16] MEDS: Calcium + Vitamin D 250 MG TABLET 500 MG PO ×2 (08:56→20:45)
[2025-06-16 08:57] VITALS: BP 142/67; PULSE 95
[2025-06-16] MEDS: Aspirin Enteric Coated 81 MG TABLET.DR PO (08:58)
[2025-06-16] MEDS: Venlafaxine HCl ER 37.5 MG CAP.ER.24H PO (08:58)
--- NOTE | 2025-06-16 18:36 | P.PNPSI_ITS ---
Subjective Subjective Date of Service: 06/16/25 Reason For Visit: SI Interim History: chart reviewed, case discussed with tx team Pt discussed his difficulty w/ urinating but is reassured that he is getting the bladder scans and has been able to void on his own w/o needing a catheter through this admission He reports he's in rough shape, depressed, anxious. He's hopeful that ECT will help. He had a POWER after ECT that resolved today. Denies any other issues w/ ECT yesterday. He's spent some time in the milieu but generally stays in his room Denies SI Denies AH/VH reportedly slept 8 hrs Eating meals Mental Status Exam Mental Status Exam Narrative: Appearance: grooming & hygiene wnl. good eye contact. Sitting at desk in his room Attitude:Cooperative Speech: Fluent and wnl in regard to volume, tone, prosody Motor activity: Lip smacking- pt is aware of it and states that it's voluntary. AIMS otherwise neg Mood: as noted above Affect: appropriate, generally constricted Thought process: somatically preoccupied. Thought content: as noted above. Perception: Denies AH/VH and does not appear to respond to internal stimuli Insight: fair Judgment: fair Diagnostics Vital Signs (24Hr): Vital Signs - 24 hr 06/15/25 20:00 06/15/25 20:40 06/16/25 07:44 Temperature 98.6 F 98.0 F Pulse Rate 86 86 98 Respiratory Rate 18 20 Blood Pressure 123/59 L 123/59 L 142/67 H Pulse Oximetry 99 96 Oxygen Delivery Method Room Air Room Air 06/16/25 08:57 Temperature Pulse Rate 95 Respiratory Rate Blood Pressure 142/67 H Pulse Oximetry Oxygen Delivery Method BMI result Body Mass Index 27.6 Labs 06/14/25 14:27 06/14/25 14:27 Imaging Radiology Impressions: ITS Impressions Chest X-Ray 06/14/25 16:43 IMPRESSION: No evidence for acute disease in the chest. Electronically signed by: Concepcion Delarosa MD 06/14/2025 04:54 PM EDT Medications Medications Current Medications Acetaminophen (Acetaminophen 325 Mg Tablet) 975 mg PO BID PRN PRN Reason: Pain, Moderate(Pain Scale 4-6) Last Admin: 06/14/25 08:52 Dose: 975 mg Al Hydroxide/Mg Hydroxide (Magnesium Hydrox/Alum Hydrox 30 Ml Oral.Susp) 30 ml PO Q6H PRN PRN Reason: Heartburn/Nausea Aspirin (Aspirin Enteric Coated 81 Mg Tablet.Dr) 81 mg PO DAILY [facility] Last Admin: 06/16/25 08:58 Dose: 81 mg Atorvastatin Calcium (Atorvastatin Calcium 40 Mg Tablet) 40 mg PO BEDTIME [facility] Last Admin: 06/15/25 20:42 Dose: 40 mg Budesonide (Budesonide 180 Mcg Aer.Pow.Ba) 2 puff INHALE RDAILY [facility] Last Admin: 06/16/25 09:01 Dose: Not Given Calcium Carbonate/Cholecalciferol (Calcium + Vitamin D 250 Mg Tablet) 500 mg PO BID [facility] Last Admin: 06/16/25 08:56 Dose: 500 mg Clozapine (Clozapine 25 Mg Tablet) 50 mg PO BEDTIME [facility] Last Admin: 06/15/25 20:42 Dose: 50 mg Clozapine (Clozapine 100 Mg Tablet) 300 mg PO BEDTIME [facility] Last Admin: 06/15/25 20:42 Dose: 300 mg Diphenhydramine HCl (Diphenhydramine Hcl 25 Mg Capsule) 50 mg PO BEDTIME PRN PRN Reason: Insomnia Docusate Sodium (Docusate Sodium 100 Mg Capsule) 100 mg PO BID [facility] Last Admin: 06/16/25 08:56 Dose: 100 mg Famotidine (Famotidine 20 Mg Tablet) 20 mg PO BID [facility] Last Admin: 06/16/25 08:58 Dose: 20 mg Folic Acid (Folic Acid 1 Mg Tablet) 1 mg PO DAILY [facility] Last Admin: 06/16/25 08:58 Dose: 1 mg Hydroxyzine HCl (Hydroxyzine Hcl 50 Mg Tablet) 50 mg PO Q8H PRN PRN Reason: Anxiety Last Admin: 06/14/25 12:55 Dose: 50 mg Ibuprofen (Ibuprofen 800 Mg Tablet) 800 mg PO Q8H PRN PRN Reason: moderate pain Last Admin: 06/16/25 10:43 Dose: 800 mg Lactase (Lactase Tablet) 3 tab PO TIDWM [facility] Last Admin: 06/16/25 16:22 Dose: 3 tab Magnesium Hydroxide (Milk Of Magnesia 30 Ml Oral.Susp) 30 ml PO DAILY PRN PRN Reason: Constipation Magnesium Oxide ([facility]esium [facility] 400 Mg Tablet) [facility] Last Admin: 06/16/25 16:31 Dose: 400 mg Metformin HCl (Metformin Hcl 500 Mg Tablet) 500 mg PO DAILY [facility] Last Admin: 06/16/25 08:58 Dose: 500 mg Methocarbamol (Methocarbamol 500 Mg Tablet) 500 mg PO TID PRN PRN Reason: severe pain Last Admin: 06/14/25 17:04 Dose: 500 mg Metoprolol Tartrate (Metoprolol Tartrate 50 Mg Tablet) 50 mg PO BID [facility]; Protocol Last Admin: 06/16/25 08:57 Dose: 50 mg Multivitamins/Vitamin C (Multivitamin Tablet) 1 tab PO DAILY [facility] Last Admin: 06/16/25 08:58 Dose: 1 tab Naloxone HCl (Naloxone Hcl 0.4 Mg/Ml Vial) 0.04 mg IVPUSH Q5M PRN PRN Reason: Excessive sedation or RR < 8 Nicotine Polacrilex (Nicotine Polacrilex 2 Mg Gum) 2 mg BUCCAL Q2H PRN PRN Reason: Nicotine Cravings Nitroglycerin (Nitroglycerin 0.4 Mg Tab.Subl) 0.4 mg SUBLINGUAL Q5MX3 PRN PRN Reason: chest pain Olanzapine (Olanzapine 5 Mg Tablet) 5 mg PO BID PRN PRN Reason: agitation Last Admin: 06/14/25 08:49 Dose: 5 mg Polyethylene Glycol (Polyethylene Glycol 3350 17 Gm Powd.Pack) 17 gm PO DAILY PRN PRN Reason: Constipation Last Admin: 06/12/25 14:45 Dose: 17 gm Sertraline HCl (Sertraline Hcl 100 Mg Tablet) 100 mg PO DAILY [facility] Last Admin: 06/16/25 08:58 Dose: 100 mg Simethicone (Simethicone 80 Mg Tab.Chew) 80 mg PO QIDWMHS [facility] Last Admin: 06/16/25 16:22 Dose: 80 mg Sucralfate (Sucralfate 1 Gm Tablet) 1 gm PO QIDACHS [facility] Last Admin: 06/16/25 16:22 Dose: 1 gm Tamsulosin HCl (Tamsulosin Hcl 0.4 Mg Capsule) 0.8 mg PO BEDTIME [facility] Last Admin: 06/15/25 20:42 Dose: 0.8 mg Trazodone HCl (Trazodone Hcl 50 Mg Tablet) 50 mg PO BEDTIME MRX1 PRN PRN Reason: Insomnia Last Admin: 06/13/25 23:33 Dose: 50 mg Trazodone HCl (Trazodone Hcl 100 Mg Tablet) 100 mg PO BEDTIME [facility] Last Admin: 06/15/25 20:41 Dose: 100 mg Venlafaxine HCl (Venlafaxine Hcl Er 37.5 Mg Cap.Er.24h) 37.5 mg PO DAILY [facility] Last Admin: 06/16/25 08:58 Dose: 37.5 mg Vitamin D (Cholecalciferol (Vitamin D3) 25 Mcg Tablet) 50 mcg PO DAILY [facility] Last Admin: 06/16/25 08:58 Dose: 50 mcg Allergies Allergies Allergy/AdvReac Type Severity Reaction Status Date / Time bupropion Allergy Rash Verified 06/09/25 19:07 haloperidol (From Haldol) Allergy Rash Verified 06/09/25 19:07 lactose Allergy Gastrointestinal Verified 06/09/25 19:07 Upset peanut Allergy Anaphylaxis Verified 06/09/25 19:07 ziprasidone Allergy Rash Verified 06/09/25 19:07 Assessment & Plan Assessment & Plan (1) Schizoaffective disorder, bipolar type: Status: Acute Code(s): F25.0 - Schizoaffective disorder, bipolar type (2) PTSD (post-traumatic stress disorder): Status: Acute Code(s): F43.10 - Post-traumatic stress disorder, unspecified (3) Coronary artery disease: Status: Acute Code(s): I25.10 - Atherosclerotic heart disease of [place] coronary artery without angina pectoris Plan Mr. Brink is a 59 y/o DWM with documented h/o schizophrenia, bipolar d/o, depression, PTSD, KASSIE, sleep apnea, HTN, CAD, hyponatremia, peripheral neuropathy, 3 IN's s/p CABG, unsteady gait, and type II DM who was brought to the [facility] ED due to AH and SI. He was transferred to [facility] for tx of severe depression, SI and psychotic sx. Plan: Admitted to for safety and stabilization Legal status- CV Admission medical consult ordered 5 minute safety checks due to fall risk. Uses a walker Meds- Continue current medications from [facility]dc list for now: Clozaril 50 mg qhs Clozaril 300 mg qhs for now (grp home list says 'bid at hs' and external med rec shows 300 mg qhs) Effexor XR 75 mg qam *per external med rec, it looks like pt is cross titrating from venlafaxine to sertraline, was previously on 225 mg qd. Will continue cross titration after clarifying when the doses were last adjusted diphenhydramine 50 mg qhs prn for insomna hydroxyzine 50 mg q 8 hrs prn for anxiety sertraline 100 mg qd trazodone 100 mg qhs acetaminophen 975 mg bid ASA 81 mg qam budesonide-formoterol 2 inhalations qd Calcium-Vit D 500mg-5 mcg tabs, 2 tabs po bid docusate 100 mg bid folic acid 1 mg qam ibuprofen 800 mg q 8 hrs prn for pain lactase 9000 unit tablet tid magnesium oxide 400 mg bid metformin 500 mg qam methocarbamol 500 mg q 8 hrs for muscle pain metoprolol 50 mg bid MVI qd nitroglycerin 0.4 mg SL q 5 min prn for chest pain u pt 3 doses simethicone 80 mg 4x/day after meals and at hs sucralfate 1 g 4x/day before meals tamsulosin 0.8 mg qhs Vit B complex qam Vit D3 50 mcg qam Will consider ECT 06/11: Trial GBP 100 mg TID for anxiety and pain. 06/12: DC Gabapentin. Monitor urinary retention/incontinence. He is on Tamsulosin. Continue current management and treatment plan. 06/13: Will refer to ECT due to inadequate response to multiple psychotropic medication trials including: current regimen- clozapine 350 mg qd, sertraline 100 mg qd, venlafaxine (tapering off, was up to 225 mg qd), trazodone 100 mg qhs Prior med trials: Prozac, Cymbalta, Lamictal, Strattera, Zyprexa, Adderall ER, Invega Sustenna, VPA -Will request hospitalist consult for risk stratification for ECT -Taper venlafaxine to 37.5 mg starting tomorrow 06/14: ECT ordered for tomorrow am. NPO except for meds with sips of water after midnight. Medically cleared for ECT today by Alejandra Dangelo NP ECT risk stratification. Patient without previous problems with anesthesia, has previously undergone ECT RCRI 0 points, no further cardiac workup or treatment indicated at this time. Patient denies any past problems with anesthesia. EKG pending, no evidence of ischemic changes Based on stated PMH, HPI, and physical exam, there are no There are no obvious contraindications to the planned procedure. Patient with moderate risk due to advancing age and history of coronary artery disease. 06/15: Pt did well w/ ECT #1. Will continue current tx plan. ECT #2 scheduled for 06/17 06/16: Continue current tx plan. ECT #2 scheduled for tomorrow. NPO and ECT orders entered. Reason for continued inpatient stay Substantial Risk for: med/psych decompensation Time Spent With Patient Time: Total time managing care of this patient today ____ minutes.
[2025-06-16 19:20] VITALS: PULSE 82; RESP 16; TEMP 36.2; O2SAT 99
[2025-06-16 20:44] VITALS: BP 121/71; PULSE 82
[2025-06-17] VITALS (12 sets, daily range): BP systolic 101–170; BP diastolic 56–90; PULSE 74–110; RESP 9–18; TEMP 36.1–37.3; O2SAT 92–99
[2025-06-17] MEDS: Venlafaxine HCl ER 37.5 MG CAP.ER.24H PO (10:27)
--- NOTE | 2025-06-17 12:24 | MHC.SHP ---
Pre-Procedural Eval Section A - 24 Hr Update-Section A only Date of Service: 06/17/25 The patient is an INPATIENT: Yes Changes since office visit: No Cold of Flu in the past 2 weeks, No New Medical Problems, No Changes in Medication and No Patient answered all questions The patient has been examined within 24 hours of the surgical procedure. The History & Physical has been completed within 30 days and I have reviewed it.: Yes Section B - Complete if H&P > 30 days Chief Complaint: SI Details of Present Illness: Ongoing depression. Denies SI. See M3 notes for details Relevant Family History (Specify if Yes): No Relevant Social History: None Present Medications: see Short Stay Collaborative assessment Medical History: No relevant PMH History of Previous Operations: No relevant previous surgery Allergies: Allergies Allergy/AdvReac Type Severity Reaction Status Date / Time bupropion Allergy Rash Verified 06/09/25 19:07 haloperidol (From Haldol) Allergy Rash Verified 06/09/25 19:07 lactose Allergy Gastrointestinal Verified 06/09/25 19:07 Upset peanut Allergy Anaphylaxis Verified 06/09/25 19:07 ziprasidone Allergy Rash Verified 06/09/25 19:07 Review of Systems Sugical H&P ROS: Negative: Constitution, Cardiovascular, Respiratory, Neurological, Psychiatric, Hem-Onc, Allergic/Immunologic, Gastrointestinal, Genitourinary, Integumentary, Endocrine and Eyes/Ears/Nose/Throat and Yes, Specify: Musculoskeletal (rib pain) Plan Diagnosis/Plan: Unchanged I have reviewed the history and physical and performed a pertinent physical examination on my patient. No changes have occurred unless specified. Time Spent With Patient Time: Total time managing care of this patient today __30__ minutes.
--- NOTE | 2025-06-17 13:37 | HO.ANESPROP2 ---
[facility] Active Problems Active Problems: All Active Problems (Updated 06/10/25 @ 15:18 by Maye Byers MD) PTSD (post-traumatic stress disorder) (Acute) Schizoaffective disorder, bipolar type (Acute) Coronary artery disease (Acute) Family History Family history of problems with anesthesia: No Surgical History History of Problems with Anesthesia: No Social History Social History Household Members: Other Household Members Other:: prison residents Housing: Other Housing Other:: prison Do you presently have visiting nurse or other home services: Yes ([employer]) Comment: 5's Patient Tobacco Use Status: Former Tobacco user Tobacco use type: Cigarette Cigarettes Per Day: 3 Years Smoked: 43 Smoked in Last 30 Days: Yes e-Cigarette/Vaping Use: Never Used Patient Interested in Nicotine Replacement: No Patient Given Instructions on How to Stop Smoking: Yes Date Education Initiated: 06/09/25 Second Hand Smoke Exposure: No Currently Displaying Signs/Symptoms of Drug Intoxication Withdrawal: No Have you been hit, kicked, punched, or otherwise hurt by someone within the past year? If so, by whom?: No Do you feel safe in your current relationship?: No Current Relationship Is there a partner from a previous relationship who is making you feel unsafe now?: No Are you made to feel afraid or neglected: No Advance Directives: No Advance Directives Information Provided: No Advance Directives on File: No Do you have thoughts of harming others: None Do you have a plan to hurt others: No Plan Recently lost weight without trying: No How much weight loss: Not applicable Eating poorly because of decreased appetite: No Nutrition screen score: 0 Nutrition Risks: No Nutritional Risk service: No Sexual orientation: Straight/Heterosexual Meds Allergies Allergy/AdvReac Type Severity Reaction Status Date / Time bupropion Allergy Rash Verified 06/09/25 19:07 haloperidol (From Haldol) Allergy Rash Verified 06/09/25 19:07 lactose Allergy Gastrointestinal Verified 06/09/25 19:07 Upset peanut Allergy Anaphylaxis Verified 06/09/25 19:07 ziprasidone Allergy Rash Verified 06/09/25 19:07 Active Medications: Current Medications Acetaminophen (Acetaminophen 325 Mg Tablet) 975 mg PO BID PRN PRN Reason: Pain, Moderate(Pain Scale 4-6) Last Admin: 06/14/25 08:52 Dose: 975 mg Al Hydroxide/Mg Hydroxide (Magnesium Hydrox/Alum Hydrox 30 Ml Oral.Susp) 30 ml PO Q6H PRN PRN Reason: Heartburn/Nausea Aspirin (Aspirin Enteric Coated 81 Mg Tablet.Dr) 81 mg PO DAILY [facility] Last Admin: 06/17/25 10:31 Dose: Not Given Atorvastatin Calcium (Atorvastatin Calcium 40 Mg Tablet) 40 mg PO BEDTIME [facility] Last Admin: 06/16/25 20:44 Dose: 40 mg Budesonide (Budesonide 180 Mcg Aer.Pow.Ba) 2 puff INHALE RDAILY [facility] Last Admin: 06/17/25 08:57 Dose: Not Given Calcium Carbonate/Cholecalciferol (Calcium + Vitamin D 250 Mg Tablet) 500 mg PO BID [facility] Last Admin: 06/17/25 10:32 Dose: Not Given Clozapine (Clozapine 25 Mg Tablet) 50 mg PO BEDTIME [facility] Last Admin: 06/16/25 20:43 Dose: 50 mg Clozapine (Clozapine 100 Mg Tablet) 300 mg PO BEDTIME [facility] Last Admin: 06/16/25 20:44 Dose: 300 mg Diphenhydramine HCl (Diphenhydramine Hcl 25 Mg Capsule) 50 mg PO BEDTIME PRN PRN Reason: Insomnia Docusate Sodium (Docusate Sodium 100 Mg Capsule) 100 mg PO BID [facility] Last Admin: 06/17/25 10:32 Dose: Not Given Famotidine (Famotidine 20 Mg Tablet) 20 mg PO BID [facility] Last Admin: 06/17/25 10:27 Dose: 20 mg Folic Acid (Folic Acid 1 Mg Tablet) 1 mg PO DAILY [facility] Last Admin: 06/17/25 10:32 Dose: Not Given Hydroxyzine HCl (Hydroxyzine Hcl 50 Mg Tablet) 50 mg PO Q8H PRN PRN Reason: Anxiety Last Admin: 06/14/25 12:55 Dose: 50 mg Ibuprofen (Ibuprofen 800 Mg Tablet) 800 mg PO Q8H PRN PRN Reason: moderate pain Last Admin: 06/16/25 10:43 Dose: 800 mg Lactase (Lactase Tablet) 3 tab PO TIDWM [facility] Last Admin: 06/17/25 12:25 Dose: Not Given Magnesium Hydroxide (Milk Of Magnesia 30 Ml Oral.Susp) 30 ml PO DAILY PRN PRN Reason: Constipation [facility] ([facility] 400 [facility] Last Admin: 06/17/25 08:58 Dose: Not Given Metformin HCl (Metformin Hcl 500 Mg Tablet) 500 mg PO DAILY [facility] Last Admin: 06/17/25 10:32 Dose: Not Given Methocarbamol (Methocarbamol 500 Mg Tablet) 500 mg PO TID PRN PRN Reason: severe pain Last Admin: 06/16/25 20:51 Dose: 500 mg Metoprolol Tartrate (Metoprolol Tartrate 50 Mg Tablet) 50 mg PO BID [facility]; Protocol Last Admin: 06/17/25 10:27 Dose: 50 mg Multivitamins/Vitamin C (Multivitamin Tablet) 1 tab PO DAILY [facility] Last Admin: 06/17/25 10:32 Dose: Not Given Naloxone HCl (Naloxone Hcl 0.4 Mg/Ml Vial) 0.04 mg IVPUSH Q5M PRN PRN Reason: Excessive sedation or RR < 8 Nicotine Polacrilex (Nicotine Polacrilex 2 Mg Gum) 2 mg BUCCAL Q2H PRN PRN Reason: Nicotine Cravings Nitroglycerin (Nitroglycerin 0.4 Mg Tab.Subl) 0.4 mg SUBLINGUAL Q5MX3 PRN PRN Reason: chest pain Olanzapine (Olanzapine 5 Mg Tablet) 5 mg PO BID PRN PRN Reason: agitation Last Admin: 06/14/25 08:49 Dose: 5 mg Polyethylene Glycol (Polyethylene Glycol 3350 17 Gm Powd.Pack) 17 gm PO DAILY PRN PRN Reason: Constipation Last Admin: 06/12/25 14:45 Dose: 17 gm Sertraline HCl (Sertraline Hcl 100 Mg Tablet) 100 mg PO DAILY [facility] Last Admin: 06/17/25 10:33 Dose: Not Given Simethicone (Simethicone 80 Mg Tab.Chew) 80 mg PO QIDWMHS [facility] Last Admin: 06/17/25 12:25 Dose: Not Given Sucralfate (Sucralfate 1 Gm Tablet) 1 gm PO QIDACHS [facility] Last Admin: 06/17/25 11:49 Dose: Not Given Tamsulosin HCl (Tamsulosin Hcl 0.4 Mg Capsule) 0.8 mg PO BEDTIME [facility] Last Admin: 06/16/25 20:51 Dose: 0.8 mg Trazodone HCl (Trazodone Hcl 50 Mg Tablet) 50 mg PO BEDTIME MRX1 PRN PRN Reason: Insomnia Last Admin: 06/13/25 23:33 Dose: 50 mg Trazodone HCl (Trazodone Hcl 100 Mg Tablet) 100 mg PO BEDTIME [facility] Last Admin: 06/16/25 20:43 Dose: 100 mg Venlafaxine HCl (Venlafaxine Hcl Er 37.5 Mg Cap.Er.24h) 37.5 mg PO DAILY [facility] Last Admin: 06/17/25 10:27 Dose: 37.5 mg Vitamin D (Cholecalciferol (Vitamin D3) 25 Mcg Tablet) 50 mcg PO DAILY [facility] Last Admin: 06/17/25 10:32 Dose: Not Given Home Medications ?Medication ?Instructions ?Recorded ?Confirmed ?Last Taken ?Type aspirin 81 mg tablet,delayed 81 mg PO DAILY 06/09/25 06/09/25 06/08/25 History release atorvastatin 40 mg tablet 40 mg PO BEDTIME cholesterol 06/09/25 06/09/25 06/08/25 History calcium 500 mg (as 2 tab PO BID 06/09/25 06/09/25 Unknown History carbonate)-vitamin D3 5 mcg (200 unit) tablet (Oyster Shell Calcium-Vitamin D3) cholecalciferol (vitamin D3) 50 50 mcg PO DAILY 06/09/25 06/09/25 06/08/25 History mcg (2,000 unit) capsule clozapine 100 mg tablet 300 mg PO BEDTIME 06/09/25 06/09/25 06/08/25 History clozapine 50 mg tablet 50 mg PO BEDTIME 06/09/25 06/09/25 06/08/25 History dextroamphetamine-amphetamine ER 2 cap PO DAILY 06/09/25 06/09/25 06/08/25 History 10 mg 24hr capsule,extend release docusate sodium 100 mg capsule 100 mg PO BID 06/09/25 06/09/25 06/08/25 History duloxetine 60 mg capsule,delayed 60 mg PO DAILY 06/09/25 06/09/25 06/08/25 History release famotidine 20 mg tablet 20 mg PO BID acid reflux 06/09/25 06/09/25 Unknown History guanfacine 1 mg tablet,extended 1 mg PO DAILY 06/09/25 06/09/25 Unknown History release 24 hr ibuprofen 800 mg tablet 800 mg PO Q8H PRN pain 06/09/25 06/09/25 Unknown History lorazepam 1 mg tablet 1 mg PO BEDTIME PRN insomnia 06/09/25 06/09/25 06/08/25 History metoprolol succinate 25 mg 75 mg PO DAILY 06/09/25 06/09/25 Unknown History tablet,extended release 24 hr multivitamin with folic acid 400 1 tab PO DAILY 06/09/25 06/09/25 06/08/25 History mcg tablet (Daily-Avtar (with folic acid)) sertraline 100 mg tablet 100 mg PO DAILY 06/09/25 06/09/25 06/08/25 History sucralfate 1 gram tablet 1 g PO QID 06/09/25 06/09/25 Unknown History tamsulosin 0.4 mg capsule 0.4 mg PO BEDTIME 06/09/25 06/09/25 06/03/25 History trazodone 100 mg tablet 100 mg PO BEDTIME 06/09/25 06/09/25 06/08/25 History venlafaxine 75 mg capsule,extended 75 mg PO QAM 06/09/25 06/09/25 06/08/25 History release 24 hr vitamin B complex 1 cap PO DAILY 06/09/25 06/09/25 06/08/25 History Exam Height,Weight and Vital Signs: Height 6 ft Weight 92.193 kg Last Vital Signs Temp 98.2 F 06/17/25 11:31 Pulse 74 06/17/25 11:52 Resp 11 L 06/17/25 11:52 BP 106/69 06/17/25 11:52 Pulse Ox 97 06/17/25 11:52 O2 Del Method Room Air 06/17/25 11:52 O2 Flow Rate 2 06/15/25 14:42 Pertinent Lab Results Pertinent Lab Results: Laboratory Tests 06/10/25 06/14/25 06/14/25 08:07 14:27 17:34 WBC 7.9 RBC 4.55 L Hgb 13.0 L Hct 38.2 L MCV 84.0 MCH 28.6 MCHC 34.0 RDW 13.4 Plt Count 284 MPV 9.2 L Immature Gran % (Auto) 0.3 Neut % (Auto) 68.0 Lymph % (Auto) 21.6 Stanley % (Auto) 7.3 Eos % (Auto) 1.9 Baso % (Auto) 0.9 Lymph # (Auto) 1.7 Stanley # (Auto) 0.6 Eos # (Auto) 0.2 Baso # (Auto) 0.1 Abs Immat Gran (auto) 0.02 Absolute Neuts (auto) 5.7 5.4 Absolute Nucleated RBC 0.000 Nucleated RBC % (auto) 0.0 Sodium 141 139 Potassium 3.9 4.3 Chloride 108 103 Carbon Dioxide 23 26 Anion Gap 14 14 BUN 8 L 19 H Creatinine 0.94 1.19 Estim Creat Clear Calc 91.7 72.4 Estimated GFR > 60 > 60 Random Glucose 110 135 H Estimat Average Glucose 114 Hemoglobin A1c % 5.6 Calcium 9.5 9.8 Total Bilirubin 0.3 0.3 AST 20 22 ALT 27 42 H Alkaline Phosphatase 95 93 Troponin I High Sens < 2.7 Total Protein 7.5 7.6 Albumin 4.7 4.8 Triglycerides 298 H Cholesterol 159 LDL Cholesterol, Calc 73 HDL Cholesterol 27 L TSH 0.86 Free T4 1.01 Airway Mallampati Class: II (edentulous) TM Dist: >3cm Neck ROM: Full Loose/Missing/Broken Teeth: Yes, Upper and Lower Heart: RRR Lungs: CTA Assessment and Plan Assessment Anesthesia Assessment: Anesthesia Plan Discussed and Chart Reviewed Final Anesthetic Review Family History of Problems with Anesthesia: No History of Problems with Anesthesia: No NPO: Yes ASA Class: III Final Preanesthetic Review: Meds/Allgs Chart Reviewed, Consent Obtained/Reviewed and Anes Risks/Benef Reviewed Patient Risk: Intermediate Procedure Risk: Intermediate Anesthetic Plan Anesthetic Plan: GA Disposition: Standard PACU
--- NOTE | 2025-06-17 13:42 | HO.ECTPROC ---
ECT Procedure Note Diagnosis/Treatment Date of Service: 06/18/25 Diagnosis: Schizoaffective Disorder Previous ECT Date: 06/15/25 Current Treatment Number: 2 Treatment: Series Interval Clinical Notes: Pt is admitted to [facility] due to tx resistant depression and SI on admission. He has had multiple recent inpt psych admissions, numerous failed med trials and underwent a successful ECT series years ago (can't recalll where he had it). He remains depressed. Denies any SE from his initial tx here on 06/15. Time: Total time managing care of this patient today ____ minutes. ECT Settings Device: THYMATRON DGx Electrode Placement: Right Unilateral Program/Pulse Width: 0.25 Energy Percent: 60 Seizure Duration By EEG (in seconds): 16 By Motor Observation (in seconds): 45 Ancillary Medications Anti-emetics: Zofran - Pre ECT (4 mg) Cardiovascular Medications: Labetolol (5 mg) and Esmolol (30 mg) Miscillaneous Medications: Midazolam (2 mg (prophylactically due to agitation after ECT #1) ) Airway Management Airway Management: Bag Mask Ventilation Treatment Recommendations No Changes Recommended: No change Pt Tolerated Procedure w/o Issue: Yes
[2025-06-17 17:54] LABS: Neut%MD 66.5 %; WBCANC 8.3 X10*3/uL
--- NOTE | 2025-06-17 18:05 | HO.PSYCHPN ---
Subjective Subjective Date of Service: 06/17/25 Reason For Visit: SI Interim History: chart reviewed, case discussed with tx team Pt had ECT #2 today, which went well. T/W met w/ pt before ECT and he reported feeling anxious, depressed, terrible . Denies SI. Hopeful that ECT will h elp Medication Compliance: Yes Side effects from medications: No Mental Status Exam Mental Status Exam Narrative: Appearance: grooming & hygiene wnl. good eye contact. Attitude:Cooperative Speech: Fluent and wnl in regard to volume, tone, prosody Motor activity: Ongoing lip smacking Mood: as noted above Affect: appropriate, more reactive Thought process: goal directed Thought content: as noted above. Perception: Denies AH/VH and does not appear to respond to internal stimuli Insight: fair Judgment: fair Diagnostics Vital Signs (24Hr): Vital Signs - 24 hr 06/16/25 19:20 06/16/25 20:44 06/17/25 07:28 Temperature 97.2 F 97.8 F Pulse Rate 82 82 95 Respiratory Rate 16 16 Blood Pressure 121/71 137/89 Pulse Oximetry 99 99 Oxygen Delivery Method Room Air Room Air Oxygen Flow Rate 06/17/25 10:27 06/17/25 10:56 06/17/25 11:31 Temperature 97.4 F 98.2 F Pulse Rate 110 H 103 H 85 Respiratory Rate 9 L Blood Pressure 146/66 H 126/85 101/66 Pulse Oximetry 98 96 Oxygen Delivery Method Room Air Oxygen Flow Rate 06/17/25 11:52 06/17/25 14:13 06/17/25 14:18 Temperature 99.1 F Pulse Rate 74 102 H 86 Respiratory Rate 11 L 18 16 Blood Pressure 106/69 170/90 H 147/82 H Pulse Oximetry 97 96 94 Oxygen Delivery Method Room Air Nasal Cannula with ETCO2 Nasal Cannula with ETCO2 Oxygen Flow Rate 19 2 06/17/25 14:23 06/17/25 14:28 06/17/25 14:43 Temperature 97.0 F Pulse Rate 82 88 83 Respiratory Rate 16 15 18 Blood Pressure 156/77 H 131/89 146/77 H Pulse Oximetry 94 92 95 Oxygen Delivery Method Nasal Cannula with ETCO2 Room Air Room Air Oxygen Flow Rate 2 BMI result Body Mass Index 27.6 Labs 06/14/25 14:27 06/14/25 14:27 Labs: Laboratory Results - last 48 hr 06/17/25 17:35 Absolute Neuts (auto) 5.5 Imaging Radiology Impressions: ITS Impressions Chest X-Ray 06/14/25 16:43 IMPRESSION: No evidence for acute disease in the chest. Electronically signed by: Concepcion Delarosa MD 06/14/2025 04:54 PM EDT RP Medications Medications Current Medications Acetaminophen (Acetaminophen 325 Mg Tablet) 975 mg PO BID PRN PRN Reason: Pain, Moderate(Pain Scale 4-6) Last Admin: 06/14/25 08:52 Dose: 975 mg Al Hydroxide/Mg Hydroxide (Magnesium Hydrox/Alum Hydrox 30 Ml Oral.Susp) 30 ml PO Q6H PRN PRN Reason: Heartburn/Nausea Aspirin (Aspirin Enteric Coated 81 Mg Tablet.Dr) 81 mg PO DAILY [facility] Last Admin: 06/17/25 10:31 Dose: Not Given Atorvastatin Calcium (Atorvastatin Calcium 40 Mg Tablet) 40 mg PO BEDTIME [facility] Last Admin: 06/16/25 20:44 Dose: 40 mg Budesonide (Budesonide 180 Mcg Aer.Pow.Ba) 2 puff INHALE RDAILY [facility] Last Admin: 06/17/25 08:57 Dose: Not Given Calcium Carbonate/Cholecalciferol (Calcium + Vitamin D 250 Mg Tablet) 500 mg PO BID [facility] Last Admin: 06/17/25 10:32 Dose: Not Given Clozapine (Clozapine 25 Mg Tablet) 50 mg PO BEDTIME [facility] Last Admin: 06/16/25 20:43 Dose: 50 mg Clozapine (Clozapine 100 Mg Tablet) 300 mg PO BEDTIME [facility] Last Admin: 06/16/25 20:44 Dose: 300 mg Diphenhydramine HCl (Diphenhydramine Hcl 25 Mg Capsule) 50 mg PO BEDTIME PRN PRN Reason: Insomnia Docusate Sodium (Docusate Sodium 100 Mg Capsule) 100 mg PO BID [facility] Last Admin: 06/17/25 10:32 Dose: Not Given Famotidine (Famotidine 20 Mg Tablet) 20 mg PO BID [facility] Last Admin: 06/17/25 10:27 Dose: 20 mg Folic Acid (Folic Acid 1 Mg Tablet) 1 mg PO DAILY [facility] Last Admin: 06/17/25 10:32 Dose: Not Given Hydroxyzine HCl (Hydroxyzine Hcl 50 Mg Tablet) 50 mg PO Q8H PRN PRN Reason: Anxiety Last Admin: 06/14/25 12:55 Dose: 50 mg Ibuprofen (Ibuprofen 800 Mg Tablet) 800 mg PO Q8H PRN PRN Reason: moderate pain Last Admin: 06/16/25 10:43 Dose: 800 mg Lactase (Lactase Tablet) 3 tab PO TIDWM [facility] Last Admin: 06/17/25 17:19 Dose: 3 tab Magnesium Hydroxide (Milk Of Magnesia 30 Ml Oral.Susp) 30 ml PO DAILY PRN PRN Reason: Constipation [facility] ([facility] 400 Mg [facility]) [facility] Last Admin: 06/17/25 17:18 Dose: 400 mg Metformin HCl (Metformin Hcl 500 Mg Tablet) 500 mg PO DAILY [facility] Last Admin: 06/17/25 10:32 Dose: Not Given Methocarbamol (Methocarbamol 500 Mg Tablet) 500 mg PO TID PRN PRN Reason: severe pain Last Admin: 06/16/25 20:51 Dose: 500 mg Metoprolol Tartrate (Metoprolol Tartrate 50 Mg Tablet) 50 mg PO BID [facility]; Protocol Last Admin: 06/17/25 10:27 Dose: 50 mg Multivitamins/Vitamin C (Multivitamin Tablet) 1 tab PO DAILY [facility] Last Admin: 06/17/25 10:32 Dose: Not Given Naloxone HCl (Naloxone Hcl 0.4 Mg/Ml Vial) 0.04 mg IVPUSH Q5M PRN PRN Reason: Excessive sedation or RR < 8 Nicotine Polacrilex (Nicotine Polacrilex 2 Mg Gum) 2 mg BUCCAL Q2H PRN PRN Reason: Nicotine Cravings Nitroglycerin (Nitroglycerin 0.4 Mg Tab.Subl) 0.4 mg SUBLINGUAL Q5MX3 PRN PRN Reason: chest pain Olanzapine (Olanzapine 5 Mg Tablet) 5 mg PO BID PRN PRN Reason: agitation Last Admin: 06/14/25 08:49 Dose: 5 mg Polyethylene Glycol (Polyethylene Glycol 3350 17 Gm Powd.Pack) 17 gm PO DAILY PRN PRN Reason: Constipation Last Admin: 06/12/25 14:45 Dose: 17 gm Sertraline HCl (Sertraline Hcl 100 Mg Tablet) 100 mg PO DAILY [facility] Last Admin: 06/17/25 10:33 Dose: Not Given Simethicone (Simethicone 80 Mg Tab.Chew) 80 mg PO QIDWMHS [facility] Last Admin: 06/17/25 17:18 Dose: 80 mg Sucralfate (Sucralfate 1 Gm Tablet) 1 gm PO QIDACHS [facility] Last Admin: 06/17/25 16:13 Dose: 1 gm Tamsulosin HCl (Tamsulosin Hcl 0.4 Mg Capsule) 0.8 mg PO BEDTIME [facility] Last Admin: 06/16/25 20:51 Dose: 0.8 mg Trazodone HCl (Trazodone Hcl 50 Mg Tablet) 50 mg PO BEDTIME MRX1 PRN PRN Reason: Insomnia Last Admin: 06/13/25 23:33 Dose: 50 mg Trazodone HCl (Trazodone Hcl 100 Mg Tablet) 100 mg PO BEDTIME [facility] Last Admin: 06/16/25 20:43 Dose: 100 mg Venlafaxine HCl (Venlafaxine Hcl Er 37.5 Mg Cap.Er.24h) 37.5 mg PO DAILY [facility] Last Admin: 06/17/25 10:27 Dose: 37.5 mg Vitamin D (Cholecalciferol (Vitamin D3) 25 Mcg Tablet) 50 mcg PO DAILY [facility] Last Admin: 06/17/25 10:32 Dose: Not Given Allergies Allergies Allergy/AdvReac Type Severity Reaction Status Date / Time bupropion Allergy Rash Verified 06/09/25 19:07 haloperidol (From Haldol) Allergy Rash Verified 06/09/25 19:07 lactose Allergy Gastrointestinal Verified 06/09/25 19:07 Upset peanut Allergy Anaphylaxis Verified 06/09/25 19:07 ziprasidone Allergy Rash Verified 06/09/25 19:07 Assessment & Plan Assessment & Plan (1) Schizoaffective disorder, bipolar type: Status: Acute Code(s): F25.0 - Schizoaffective disorder, bipolar type (2) PTSD (post-traumatic stress disorder): Status: Acute Code(s): F43.10 - Post-traumatic stress disorder, unspecified (3) Coronary artery disease: Status: Acute Code(s): I25.10 - Atherosclerotic heart disease of [place] coronary artery without angina pectoris Plan Mr. Brink is a 59 y/o DWM with documented h/o schizophrenia, bipolar d/o, depression, PTSD, KASSIE, sleep apnea, HTN, CAD, hyponatremia, peripheral neuropathy, 3 GA's s/p CABG, unsteady gait, and type II DM who was brought to the [facility] ED due to AH and SI. He was transferred to [facility] for tx of severe depression, SI and psychotic sx. Plan: Admitted to [facility] for safety and stabilization Legal status- CV Admission medical consult ordered 5 minute safety checks due to fall risk. Uses a walker Meds- Continue current medications from halfway list for now: Clozaril 50 mg qhs Clozaril 300 mg qhs for now (grp home list says 'bid at hs' and external med rec shows 300 mg qhs) Effexor XR 75 mg qam *per external med rec, it looks like pt is cross titrating from venlafaxine to sertraline, was previously on 225 mg qd. Will continue cross titration after clarifying when the doses were last adjusted diphenhydramine 50 mg qhs prn for insomna hydroxyzine 50 mg q 8 hrs prn for anxiety sertraline 100 mg qd trazodone 100 mg qhs acetaminophen 975 mg bid ASA 81 mg qam budesonide-formoterol 2 inhalations qd Calcium-Vit D 500mg-5 mcg tabs, 2 tabs po bid docusate 100 mg bid folic acid 1 mg qam ibuprofen 800 mg q 8 hrs prn for pain lactase 9000 unit tablet tid magnesium oxide 400 mg bid metformin 500 mg qam methocarbamol 500 mg q 8 hrs for muscle pain metoprolol 50 mg bid MVI qd nitroglycerin 0.4 mg SL q 5 min prn for chest pain u pt 3 doses simethicone 80 mg 4x/day after meals and at hs sucralfate 1 g 4x/day before meals tamsulosin 0.8 mg qhs Vit B complex qam Vit D3 50 mcg qam Will consider ECT 06/11: Trial GBP 100 mg TID for anxiety and pain. 06/12: DC Gabapentin. Monitor urinary retention/incontinence. He is on Tamsulosin. Continue current management and treatment plan. 06/13: Will refer to ECT due to inadequate response to multiple psychotropic medication trials including: current regimen- clozapine 350 mg qd, sertraline 100 mg qd, venlafaxine (tapering off, was up to 225 mg qd), trazodone 100 mg qhs Prior med trials: Prozac, Cymbalta, Lamictal, Strattera, Zyprexa, Adderall ER, Invega Sustenna, VPA -Will request hospitalist consult for risk stratification for ECT -Taper venlafaxine to 37.5 mg starting tomorrow 06/14: ECT ordered for tomorrow am. NPO except for meds with sips of water after midnight. Medically cleared for ECT today by Alejandra Dangelo NP ECT risk stratification. Patient without previous problems with anesthesia, has previously undergone ECT RCRI 0 points, no further cardiac workup or treatment indicated at this time. Patient denies any past problems with anesthesia. EKG pending, no evidence of ischemic changes Based on stated PMH, HPI, and physical exam, there are no There are no obvious contraindications to the planned procedure. Patient with moderate risk due to advancing age and history of coronary artery disease. 06/15: Pt did well w/ ECT #1. Will continue current tx plan. ECT #2 scheduled for 06/17 06/16: Continue current tx plan. ECT #2 scheduled for tomorrow. NPO and ECT orders entered. 06/17: Did well w/ ECT #2. Ordered NPO for ECT #3 on Friday Reason for continued inpatient stay Substantial Risk for: med/psych decompensation Time Spent With Patient Time: Total time managing care of this patient today __25__ minutes.
[2025-06-17 18:12] LABS: Creatinine Clr Calc Pharmacy 76.3; Estimated Glomerular Filt Rate > 60
[2025-06-17] MEDS: Calcium + Vitamin D 250 MG TABLET 500 MG PO (21:15)
[2025-06-18 07:41] VITALS: BP 124/82; PULSE 102; RESP 16; TEMP 36.4; O2SAT 100
[2025-06-18 08:47] VITALS: BP 124/82; PULSE 102
[2025-06-18] MEDS: Venlafaxine HCl ER 37.5 MG CAP.ER.24H PO (08:47)
[2025-06-18] MEDS: Calcium + Vitamin D 250 MG TABLET 500 MG PO ×2 (08:47→20:21)
[2025-06-18] MEDS: Aspirin Enteric Coated 81 MG TABLET.DR PO (08:47)
--- NOTE | 2025-06-18 14:46 | P.PNPSI_ITS ---
Subjective Subjective Date of Service: 06/18/25 Reason For Visit: SI Interim History: Laying in bed. Pt reports feeling anxious and depressed; pt stated, I'm depressed because of my health . He reports auditory hallucinations telling him he is going to . denies SI/HI/VH. Encouraged to attend groups. Medication Compliance: Yes Side effects from medications: No Attending Groups: No Mental Status Exam Mental Status Exam Patient Appearance: Appropriate Patient Orientation: Person, Place, Time and Situation Level of Consciousness: Drowsy Patient Behavior: Guarded Mood Description: Depressed Affect Description: Depressed Ability to Follow Directions: Good Speech Pattern: Clear Memory Description: Intact Hallucinations: Auditory Thought Process: Intact Thought Content: positive for Intact Diagnostics Vital Signs (24Hr): Vital Signs - 24 hr 06/17/25 20:00 06/17/25 21:13 06/18/25 07:41 Temperature 97.6 F 97.6 F Pulse Rate 102 H 102 H 102 H Respiratory Rate 16 16 Blood Pressure 104/56 L 104/56 L 124/82 Pulse Oximetry 97 100 Oxygen Delivery Method Room Air Room Air 06/18/25 08:47 Temperature Pulse Rate 102 H Respiratory Rate Blood Pressure 124/82 Pulse Oximetry Oxygen Delivery Method BMI result Body Mass Index 27.6 Labs 06/14/25 14:27 06/17/25 17:36 Labs: Laboratory Results - last 48 hr 06/17/25 06/17/25 17:35 17:36 Absolute Neuts (auto) 5.5 Creatinine 1.13 Estim Creat Clear Calc 76.3 Estimated GFR > 60 Imaging Radiology Impressions: ITS Impressions Chest X-Ray 06/14/25 16:43 IMPRESSION: No evidence for acute disease in the chest. Electronically signed by: Concepcion Delarosa MD 06/14/2025 04:54 PM EDT Medications Medications Current Medications Acetaminophen (Acetaminophen 325 Mg Tablet) 975 mg PO BID PRN PRN Reason: Pain, Moderate(Pain Scale 4-6) Last Admin: 06/17/25 18:11 Dose: 975 mg Al Hydroxide/Mg Hydroxide (Magnesium Hydrox/Alum Hydrox 30 Ml Oral.Susp) 30 ml PO Q6H PRN PRN Reason: Heartburn/Nausea Aspirin (Aspirin Enteric Coated 81 Mg Tablet.) 81 mg PO DAILY [facility] Last Admin: 06/18/25 08:47 Dose: 81 mg Atorvastatin Calcium (Atorvastatin Calcium 40 Mg Tablet) 40 mg PO BEDTIME [facility] Last Admin: 06/17/25 21:11 Dose: 40 mg Budesonide (Budesonide 180 Mcg Aer.Pow.Ba) 2 puff INHALE RDAILY [facility] Last Admin: 06/18/25 08:54 Dose: Not Given Calcium Carbonate/Cholecalciferol (Calcium + Vitamin D 250 Mg Tablet) 500 mg PO BID [facility] Last Admin: 06/18/25 08:47 Dose: 500 mg Clozapine (Clozapine 25 Mg Tablet) 50 mg PO BEDTIME [facility] Last Admin: 06/17/25 21:11 Dose: 50 mg Clozapine (Clozapine 100 Mg Tablet) 300 mg PO BEDTIME [facility] Last Admin: 06/17/25 21:12 Dose: 300 mg Diphenhydramine HCl (Diphenhydramine Hcl 25 Mg Capsule) 50 mg PO BEDTIME PRN PRN Reason: Insomnia Docusate Sodium (Docusate Sodium 100 Mg Capsule) 100 mg PO BID [facility] Last Admin: 06/18/25 08:47 Dose: 100 mg Famotidine (Famotidine 20 Mg Tablet) 20 mg PO BID [facility] Last Admin: 06/18/25 08:47 Dose: 20 mg Folic Acid (Folic Acid 1 Mg Tablet) 1 mg PO DAILY [facility] Last Admin: 06/18/25 08:47 Dose: 1 mg Hydroxyzine HCl (Hydroxyzine Hcl 50 Mg Tablet) 50 mg PO Q8H PRN PRN Reason: Anxiety Last Admin: 06/14/25 12:55 Dose: 50 mg Ibuprofen (Ibuprofen 800 Mg Tablet) 800 mg PO Q8H PRN PRN Reason: moderate pain Last Admin: 06/16/25 10:43 Dose: 800 mg Lactase (Lactase Tablet) 3 tab PO TIDWM [facility] Last Admin: 06/18/25 12:26 Dose: 3 tab Magnesium Hydroxide (Milk Of Magnesia 30 Ml Oral.Susp) 30 ml PO DAILY PRN PRN Reason: Constipation Magnesium Oxide (Magnesium Oxide 400 Mg Tablet) 400 mg PO BIDPC [facility] Last Admin: 06/18/25 08:47 Dose: 400 mg Metformin HCl (Metformin Hcl 500 Mg Tablet) 500 mg PO DAILY [facility] Last Admin: 06/18/25 08:47 Dose: 500 mg Methocarbamol (Methocarbamol 500 Mg Tablet) 500 mg PO TID PRN PRN Reason: severe pain Last Admin: 06/16/25 20:51 Dose: 500 mg Metoprolol Tartrate (Metoprolol Tartrate 50 Mg Tablet) 50 mg PO BID [facility]; Protocol Last Admin: 06/18/25 08:47 Dose: 50 mg Multivitamins/Vitamin C (Multivitamin Tablet) 1 tab PO DAILY [facility] Last Admin: 06/18/25 08:47 Dose: 1 tab Naloxone HCl (Naloxone Hcl 0.4 Mg/Ml Vial) 0.04 mg IVPUSH Q5M PRN PRN Reason: Excessive sedation or RR < 8 Nicotine Polacrilex (Nicotine Polacrilex 2 Mg Gum) 2 mg BUCCAL Q2H PRN PRN Reason: Nicotine Cravings Nitroglycerin (Nitroglycerin 0.4 Mg Tab.Subl) 0.4 mg SUBLINGUAL Q5MX3 PRN PRN Reason: chest pain Olanzapine (Olanzapine 5 Mg Tablet) 5 mg PO BID PRN PRN Reason: agitation Last Admin: 06/14/25 08:49 Dose: 5 mg Polyethylene Glycol (Polyethylene Glycol 3350 17 Gm Powd.Pack) 17 gm PO DAILY PRN PRN Reason: Constipation Last Admin: 06/12/25 14:45 Dose: 17 gm Sertraline HCl (Sertraline Hcl 100 Mg Tablet) 100 mg PO DAILY [facility] Last Admin: 06/18/25 08:48 Dose: 100 mg Simethicone (Simethicone 80 Mg Tab.Chew) 80 mg PO QIDWMHS [facility] Last Admin: 06/18/25 12:26 Dose: 80 mg Sucralfate (Sucralfate 1 Gm Tablet) 1 gm PO QIDACHS [facility] Last Admin: 06/18/25 12:26 Dose: 1 gm Tamsulosin HCl (Tamsulosin Hcl 0.4 Mg Capsule) 0.8 mg PO BEDTIME [facility] Last Admin: 06/17/25 21:10 Dose: 0.8 mg Trazodone HCl (Trazodone Hcl 50 Mg Tablet) 50 mg PO BEDTIME MRX1 PRN PRN Reason: Insomnia Last Admin: 06/13/25 23:33 Dose: 50 mg Trazodone HCl (Trazodone Hcl 100 Mg Tablet) 100 mg PO BEDTIME [facility] Last Admin: 06/17/25 21:13 Dose: 100 mg Venlafaxine HCl (Venlafaxine Hcl Er 37.5 Mg Cap.Er.24h) 37.5 mg PO DAILY [facility] Last Admin: 06/18/25 08:47 Dose: 37.5 mg Vitamin D (Cholecalciferol (Vitamin D3) 25 Mcg Tablet) 50 mcg PO DAILY [facility] Last Admin: 06/18/25 08:47 Dose: 50 mcg Allergies Allergies Allergy/AdvReac Type Severity Reaction Status Date / Time bupropion Allergy Rash Verified 06/09/25 19:07 haloperidol (From Haldol) Allergy Rash Verified 06/09/25 19:07 lactose Allergy Gastrointestinal Verified 06/09/25 19:07 Upset peanut Allergy Anaphylaxis Verified 06/09/25 19:07 ziprasidone Allergy Rash Verified 06/09/25 19:07 Assessment & Plan Assessment & Plan (1) Schizoaffective disorder, bipolar type: Status: Acute Code(s): F25.0 - Schizoaffective disorder, bipolar type (2) PTSD (post-traumatic stress disorder): Status: Acute Code(s): F43.10 - Post-traumatic stress disorder, unspecified (3) Coronary artery disease: Status: Acute Code(s): I25.10 - Atherosclerotic heart disease of [place] coronary artery without angina pectoris Plan Mr. Brink is a 59 y/o DWM with documented h/o schizophrenia, bipolar d/o, depression, PTSD, KASSIE, sleep apnea, HTN, CAD, hyponatremia, peripheral neuropathy, 3 UT's s/p CABG, unsteady gait, and type II DM who was brought to the [facility] ED due to AH and SI. He was transferred to [facility] for tx of severe depression, SI and psychotic sx. Plan: Admitted to for safety and stabilization Legal status- CV Admission medical consult ordered 5 minute safety checks due to fall risk. Uses a walker Meds- Continue current medications from prison list for now: Clozaril 50 mg qhs Clozaril 300 mg qhs for now (grp home list says 'bid at hs' and external med rec shows 300 mg qhs) Effexor XR 75 mg qam *per external med rec, it looks like pt is cross titrating from venlafaxine to sertraline, was previously on 225 mg qd. Will continue cross titration after clarifying when the doses were last adjusted diphenhydramine 50 mg qhs prn for insomna hydroxyzine 50 mg q 8 hrs prn for anxiety sertraline 100 mg qd trazodone 100 mg qhs acetaminophen 975 mg bid ASA 81 mg qam budesonide-formoterol 2 inhalations qd Calcium-Vit D 500mg-5 mcg tabs, 2 tabs po bid docusate 100 mg bid folic acid 1 mg qam ibuprofen 800 mg q 8 hrs prn for pain lactase 9000 unit tablet tid magnesium oxide 400 mg bid metformin 500 mg qam methocarbamol 500 mg q 8 hrs for muscle pain metoprolol 50 mg bid MVI qd nitroglycerin 0.4 mg SL q 5 min prn for chest pain u pt 3 doses simethicone 80 mg 4x/day after meals and at hs sucralfate 1 g 4x/day before meals tamsulosin 0.8 mg qhs Vit B complex qam Vit D3 50 mcg qam Will consider ECT 06/11: Trial GBP 100 mg TID for anxiety and pain. 06/12: DC Gabapentin. Monitor urinary retention/incontinence. He is on Tamsulosin. Continue current management and treatment plan. 06/13: Will refer to ECT due to inadequate response to multiple psychotropic medication trials including: current regimen- clozapine 350 mg qd, sertraline 100 mg qd, venlafaxine (tapering off, was up to 225 mg qd), trazodone 100 mg qhs Prior med trials: Prozac, Cymbalta, Lamictal, Strattera, Zyprexa, Adderall ER, Invega Sustenna, VPA -Will request hospitalist consult for risk stratification for ECT -Taper venlafaxine to 37.5 mg starting tomorrow 06/14: ECT ordered for tomorrow am. NPO except for meds with sips of water after midnight. Medically cleared for ECT today by Alejandra Dangelo NP ECT risk stratification. Patient without previous problems with anesthesia, has previously undergone ECT RCRI 0 points, no further cardiac workup or treatment indicated at this time. Patient denies any past problems with anesthesia. EKG pending, no evidence of ischemic changes Based on stated PMH, HPI, and physical exam, there are no There are no obvious contraindications to the planned procedure. Patient with moderate risk due to advancing age and history of coronary artery disease. 06/15: Pt did well w/ ECT #1. Will continue current tx plan. ECT #2 scheduled for 06/17 06/16: Continue current tx plan. ECT #2 scheduled for tomorrow. NPO and ECT orders entered. 06/17: Did well w/ ECT #2. Ordered NPO for ECT #3 on Monday 06/18: continue tx plan Patient educated on: diagnosis and medication risk/benefits Reason for continued inpatient stay Substantial Risk for: med/psych decompensation Time Spent With Patient Time: Total time managing care of this patient today _15___ minutes.
[2025-06-18 20:00] VITALS: BP 124/76; PULSE 81; RESP 16; TEMP 36.2; O2SAT 98
[2025-06-18 20:22] VITALS: BP 124/76; PULSE 81
[2025-06-19] MEDS: Calcium + Vitamin D 250 MG TABLET 500 MG PO ×2 (08:56→21:06)
[2025-06-19] MEDS: Aspirin Enteric Coated 81 MG TABLET.DR PO (08:57)
[2025-06-19] MEDS: Venlafaxine HCl ER 37.5 MG CAP.ER.24H PO (08:59)
[2025-06-19 09:05] VITALS: BP 123/75; PULSE 101; RESP 16; TEMP 36.2; O2SAT 98
--- NOTE | 2025-06-19 12:28 | P.PNPSI_ITS ---
Subjective Subjective Date of Service: 06/19/25 Reason For Visit: SI Interim History: Laying in bed most of day. Patient continues to report feeling depressed; he reports not sleeping well last night but is not clear for reason. denies SI/HI/VH. +AH telling me I'm going to . Encouraged to leave room. continue tx plan. Medication Compliance: Yes Side effects from medications: No Attending Groups: No Mental Status Exam Mental Status Exam Patient Appearance: Appropriate Patient Orientation: Person, Place, Time and Situation Level of Consciousness: Drowsy Patient Behavior: Guarded Mood Description: Depressed Affect Description: Depressed Ability to Follow Directions: Good Speech Pattern: Clear Memory Description: Intact Diagnostics Vital Signs (24Hr): Vital Signs - 24 hr 06/18/25 20:00 06/18/25 20:22 06/19/25 09:05 Temperature 97.2 F 97.2 F Pulse Rate 81 81 101 H Respiratory Rate 16 16 Blood Pressure 124/76 124/76 123/75 Pulse Oximetry 98 98 Oxygen Delivery Method Room Air Room Air BMI result Body Mass Index 27.6 Labs 06/14/25 14:27 06/17/25 17:36 Labs: Laboratory Results - last 48 hr 06/17/25 06/17/25 17:35 17:36 Absolute Neuts (auto) 5.5 Creatinine 1.13 Estim Creat Clear Calc 76.3 Estimated GFR > 60 Imaging Radiology Impressions: ITS Impressions Chest X-Ray 06/14/25 16:43 IMPRESSION: No evidence for acute disease in the chest. Electronically signed by: Concepcion Delarosa MD 06/14/2025 04:54 PM EDT Medications Medications Current Medications Acetaminophen (Acetaminophen 325 Mg Tablet) 975 mg PO BID PRN PRN Reason: Pain, Moderate(Pain Scale 4-6) Last Admin: 06/18/25 17:24 Dose: 975 mg Al Hydroxide/Mg Hydroxide (Magnesium Hydrox/Alum Hydrox 30 Ml Oral.Susp) 30 ml PO Q6H PRN PRN Reason: Heartburn/Nausea Aspirin (Aspirin Enteric Coated 81 Mg Tablet.Dr) 81 mg PO DAILY [facility] Last Admin: 06/19/25 08:57 Dose: 81 mg Atorvastatin Calcium (Atorvastatin Calcium 40 Mg Tablet) 40 mg PO BEDTIME [facility] Last Admin: 06/18/25 20:21 Dose: 40 mg Budesonide (Budesonide 180 Mcg Aer.Pow.Ba) 2 puff INHALE RDAILY [facility] Last Admin: 06/19/25 08:54 Dose: 2 puff Calcium Carbonate/Cholecalciferol (Calcium + Vitamin D 250 Mg Tablet) 500 mg PO BID [facility] Last Admin: 06/19/25 08:56 Dose: 500 mg Clozapine (Clozapine 25 Mg Tablet) 50 mg PO BEDTIME [facility] Last Admin: 06/18/25 20:23 Dose: 50 mg Clozapine (Clozapine 100 Mg Tablet) 300 mg PO BEDTIME [facility] Last Admin: 06/18/25 20:21 Dose: 300 mg Diphenhydramine HCl (Diphenhydramine Hcl 25 Mg Capsule) 50 mg PO BEDTIME PRN PRN Reason: Insomnia Docusate Sodium (Docusate Sodium 100 Mg Capsule) 100 mg PO BID [facility] Last Admin: 06/19/25 08:56 Dose: 100 mg Famotidine (Famotidine 20 Mg Tablet) 20 mg PO BID [facility] Last Admin: 06/19/25 08:56 Dose: 20 mg Folic Acid (Folic Acid 1 Mg Tablet) 1 mg PO DAILY [facility] Last Admin: 06/19/25 08:58 Dose: 1 mg Hydroxyzine HCl (Hydroxyzine Hcl 50 Mg Tablet) 50 mg PO Q8H PRN PRN Reason: Anxiety Last Admin: 06/14/25 12:55 Dose: 50 mg Ibuprofen (Ibuprofen 800 Mg Tablet) 800 mg PO Q8H PRN PRN Reason: moderate pain Last Admin: 06/16/25 10:43 Dose: 800 mg Lactase (Lactase Tablet) 3 tab PO TIDWM [facility] Last Admin: 06/19/25 11:48 Dose: 3 tab Magnesium Hydroxide (Milk Of Magnesia 30 Ml Oral.Susp) 30 ml PO DAILY PRN PRN Reason: Constipation Magnesium Oxide (Magnesium Ox[facility] 400 Mg Tablet) [facility] Last Admin: 06/19/25 08:57 Dose: 400 mg Metformin HCl (Metformin Hcl 500 Mg Tablet) 500 mg PO DAILY [facility] Last Admin: 06/19/25 08:57 Dose: 500 mg Methocarbamol (Methocarbamol 500 Mg Tablet) 500 mg PO TID PRN PRN Reason: severe pain Last Admin: 06/16/25 20:51 Dose: 500 mg Metoprolol Tartrate (Metoprolol Tartrate 50 Mg Tablet) 50 mg PO BID [facility]; Protocol Last Admin: 06/19/25 09:09 Dose: 50 mg Multivitamins/Vitamin C (Multivitamin Tablet) 1 tab PO DAILY [facility] Last Admin: 06/19/25 08:57 Dose: 1 tab Naloxone HCl (Naloxone Hcl 0.4 Mg/Ml Vial) 0.04 mg IVPUSH Q5M PRN PRN Reason: Excessive sedation or RR < 8 Nicotine Polacrilex (Nicotine Polacrilex 2 Mg Gum) 2 mg BUCCAL Q2H PRN PRN Reason: Nicotine Cravings Nitroglycerin (Nitroglycerin 0.4 Mg Tab.Subl) 0.4 mg SUBLINGUAL Q5MX3 PRN PRN Reason: chest pain Olanzapine (Olanzapine 5 Mg Tablet) 5 mg PO BID PRN PRN Reason: agitation Last Admin: 06/14/25 08:49 Dose: 5 mg Polyethylene Glycol (Polyethylene Glycol 3350 17 Gm Powd.Pack) 17 gm PO DAILY PRN PRN Reason: Constipation Last Admin: 06/12/25 14:45 Dose: 17 gm Sertraline HCl (Sertraline Hcl 100 Mg Tablet) 100 mg PO DAILY [facility] Last Admin: 06/19/25 08:55 Dose: 100 mg Simethicone (Simethicone 80 Mg Tab.Chew) 80 mg PO QIDWMHS [facility] Last Admin: 06/19/25 11:49 Dose: 80 mg Sucralfate (Sucralfate 1 Gm Tablet) 1 gm PO QIDACHS [facility] Last Admin: 06/19/25 11:49 Dose: 1 gm Tamsulosin HCl (Tamsulosin Hcl 0.4 Mg Capsule) 0.8 mg PO BEDTIME [facility] Last Admin: 06/18/25 20:21 Dose: 0.8 mg Trazodone HCl (Trazodone Hcl 50 Mg Tablet) 50 mg PO BEDTIME MRX1 PRN PRN Reason: Insomnia Last Admin: 06/13/25 23:33 Dose: 50 mg Trazodone HCl (Trazodone Hcl 100 Mg Tablet) 100 mg PO BEDTIME [facility] Last Admin: 06/18/25 20:23 Dose: 100 mg Venlafaxine HCl (Venlafaxine Hcl Er 37.5 Mg Cap.Er.24h) 37.5 mg PO DAILY [facility] Last Admin: 06/19/25 08:59 Dose: 37.5 mg Vitamin D (Cholecalciferol (Vitamin D3) 25 Mcg Tablet) 50 mcg PO DAILY [facility] Last Admin: 06/19/25 08:58 Dose: 50 mcg Allergies Allergies Allergy/AdvReac Type Severity Reaction Status Date / Time bupropion Allergy Rash Verified 06/09/25 19:07 haloperidol (From Haldol) Allergy Rash Verified 06/09/25 19:07 lactose Allergy Gastrointestinal Verified 06/09/25 19:07 Upset peanut Allergy Anaphylaxis Verified 06/09/25 19:07 ziprasidone Allergy Rash Verified 06/09/25 19:07 Assessment & Plan Assessment & Plan (1) Schizoaffective disorder, bipolar type: Status: Acute Code(s): F25.0 - Schizoaffective disorder, bipolar type (2) PTSD (post-traumatic stress disorder): Status: Acute Code(s): F43.10 - Post-traumatic stress disorder, unspecified (3) Coronary artery disease: Status: Acute Code(s): I25.10 - Atherosclerotic heart disease of [place] coronary artery without angina pectoris Plan Mr. Brink is a 59 y/o DWM with documented h/o schizophrenia, bipolar d/o, depression, PTSD, KASSIE, sleep apnea, HTN, CAD, hyponatremia, peripheral neuropathy, 3 NJ's s/p CABG, unsteady gait, and type II DM who was brought to the [facility] ED due to AH and SI. He was transferred to [facility] for tx of severe depression, SI and psychotic sx. Plan: Admitted to for safety and stabilization Legal status- CV Admission medical consult ordered 5 minute safety checks due to fall risk. Uses a walker Meds- Continue current medications from shelter list for now: Clozaril 50 mg qhs Clozaril 300 mg qhs for now ([facility] home list says 'bid at hs' and external med rec shows 300 mg qhs) Effexor XR 75 mg qam *per external med rec, it looks like pt is cross titrating from venlafaxine to sertraline, was previously on 225 mg qd. Will continue cross titration after clarifying when the doses were last adjusted diphenhydramine 50 mg qhs prn for insomna hydroxyzine 50 mg q 8 hrs prn for anxiety sertraline 100 mg qd trazodone 100 mg qhs acetaminophen 975 mg bid ASA 81 mg qam budesonide-formoterol 2 inhalations qd Calcium-Vit D 500mg-5 mcg tabs, 2 tabs po bid docusate 100 mg bid folic acid 1 mg qam ibuprofen 800 mg q 8 hrs prn for pain lactase 9000 unit tablet tid magnesium oxide 400 mg bid metformin 500 mg qam methocarbamol 500 mg q 8 hrs for muscle pain metoprolol 50 mg bid MVI qd nitroglycerin 0.4 mg SL q 5 min prn for chest pain u pt 3 doses simethicone 80 mg 4x/day after meals and at hs sucralfate 1 g 4x/day before meals tamsulosin 0.8 mg qhs Vit B complex qam Vit D3 50 mcg qam Will consider ECT 06/11: Trial GBP 100 mg TID for anxiety and pain. 06/12: DC Gabapentin. Monitor urinary retention/incontinence. He is on Tamsulosin. Continue current management and treatment plan. 06/13: Will refer to ECT due to inadequate response to multiple psychotropic medication trials including: current regimen- clozapine 350 mg qd, sertraline 100 mg qd, venlafaxine (tapering off, was up to 225 mg qd), trazodone 100 mg qhs Prior med trials: Prozac, Cymbalta, Lamictal, Strattera, Zyprexa, Adderall ER, Invega Sustenna, VPA -Will request hospitalist consult for risk stratification for ECT -Taper venlafaxine to 37.5 mg starting tomorrow 06/14: ECT ordered for tomorrow am. NPO except for meds with sips of water after midnight. Medically cleared for ECT today by Alejandra Dangelo NP ECT risk stratification. Patient without previous problems with anesthesia, has previously undergone ECT RCRI 0 points, no further cardiac workup or treatment indicated at this time. Patient denies any past problems with anesthesia. EKG pending, no evidence of ischemic changes Based on stated PMH, HPI, and physical exam, there are no There are no obvious contraindications to the planned procedure. Patient with moderate risk due to advancing age and history of coronary artery disease. 06/15: Completed ECT #1 today (RUL) and tolerated it well. Will continue current tx plan for now, with ECT #2 scheduled for 06/17: Laying in bed most of day. Patient continues to report feeling depressed; he reports not sleeping well last night but is not clear for reason. denies SI/HI/VH. +AH telling me I'm going to . Encouraged to leave room. continue tx plan. Patient educated on: diagnosis, medication risk/benefits and therapeutic strategies Reason for continued inpatient stay Substantial Risk for: med/psych decompensation Time Spent With Patient Time: Total time managing care of this patient today _15___ minutes.
[2025-06-19 21:03] VITALS: BP 90/54; PULSE 96; RESP 17; TEMP 36.6; O2SAT 96
[2025-06-20] VITALS (13 sets, daily range): BP systolic 111–191; BP diastolic 54–109; PULSE 64–91; RESP 14–16; TEMP 36.1–36.4; O2SAT 90–100
[2025-06-20] MEDS: Venlafaxine HCl ER 37.5 MG CAP.ER.24H PO (06:15)
--- NOTE | 2025-06-20 06:41 | HO.ANESPROP2 ---
[facility] Active Problems Active Problems: All Active Problems PTSD (post-traumatic stress disorder) (Acute) Schizoaffective disorder, bipolar type (Acute) Coronary artery disease (Acute) Family History Family history of problems with anesthesia: No Surgical History History of Problems with Anesthesia: No Social History Social History Household Members: Other Household Members Other:: [facility] residents Housing: Other Housing Other:: [facility] Do you presently have visiting nurse or other home services: Yes ([employer]) Comment: 5 min safety checks Patient Tobacco Use Status: Former Tobacco user Tobacco use type: Cigarette Cigarettes Per Day: 3 Years Smoked: 43 Smoked in Last 30 Days: Yes e-Cigarette/Vaping Use: Never Used Patient Interested in Nicotine Replacement: No Patient Given Instructions on How to Stop Smoking: Yes Date Education Initiated: 06/09/25 Second Hand Smoke Exposure: No Currently Displaying Signs/Symptoms of Drug Intoxication Withdrawal: No Have you been hit, kicked, punched, or otherwise hurt by someone within the past year? If so, by whom?: No Do you feel safe in your current relationship?: No Current Relationship Is there a partner from a previous relationship who is making you feel unsafe now?: No Are you made to feel afraid or neglected: No Advance Directives: No Advance Directives Information Provided: No Advance Directives on File: No Do you have thoughts of harming others: None Do you have a plan to hurt others: No Plan Recently lost weight without trying: No How much weight loss: Not applicable Eating poorly because of decreased appetite: No Nutrition screen score: 0 Nutrition Risks: No Nutritional Risk service: No Sexual orientation: Straight/Heterosexual Meds Allergies Allergy/AdvReac Type Severity Reaction Status Date / Time bupropion Allergy Rash Verified 06/09/25 19:07 haloperidol (From Haldol) Allergy Rash Verified 06/09/25 19:07 lactose Allergy Gastrointestinal Verified 06/09/25 19:07 Upset peanut Allergy Anaphylaxis Verified 06/09/25 19:07 ziprasidone Allergy Rash Verified 06/09/25 19:07 Active Medications: Current Medications Acetaminophen (Acetaminophen 325 Mg Tablet) 975 mg PO BID PRN PRN Reason: Pain, Moderate(Pain Scale 4-6) Last Admin: 06/18/25 17:24 Dose: 975 mg Al Hydroxide/Mg Hydroxide (Magnesium Hydrox/Alum Hydrox 30 Ml Oral.Susp) 30 ml PO Q6H PRN PRN Reason: Heartburn/Nausea Aspirin (Aspirin Enteric Coated 81 Mg Tablet.Dr) 81 mg PO DAILY [facility] Last Admin: 06/19/25 08:57 Dose: 81 mg Atorvastatin Calcium (Atorvastatin Calcium 40 Mg Tablet) 40 mg PO BEDTIME [facility] Last Admin: 06/19/25 21:06 Dose: 40 mg Budesonide (Budesonide 180 Mcg Aer.Pow.Ba) 2 puff INHALE RDAILY [facility] Last Admin: 06/19/25 08:54 Dose: 2 puff Calcium Carbonate/Cholecalciferol (Calcium + Vitamin D 250 Mg Tablet) 500 mg PO BID [facility] Last Admin: 06/19/25 21:06 Dose: 500 mg Clozapine (Clozapine 25 Mg Tablet) 50 mg PO BEDTIME [facility] Last Admin: 06/19/25 21:06 Dose: 50 mg Clozapine (Clozapine 100 Mg Tablet) 300 mg PO BEDTIME [facility] Last Admin: 06/19/25 21:06 Dose: 300 mg Diphenhydramine HCl (Diphenhydramine Hcl 25 Mg Capsule) 50 mg PO BEDTIME PRN PRN Reason: Insomnia Docusate Sodium (Docusate Sodium 100 Mg Capsule) 100 mg PO BID [facility] Last Admin: 06/19/25 21:07 Dose: 100 mg Famotidine (Famotidine 20 Mg Tablet) 20 mg PO BID [facility] Last Admin: 06/20/25 06:16 Dose: 20 mg Folic Acid (Folic Acid 1 Mg Tablet) 1 mg PO DAILY [facility] Last Admin: 06/19/25 08:58 Dose: 1 mg Hydroxyzine HCl (Hydroxyzine Hcl 50 Mg Tablet) 50 mg PO Q8H PRN PRN Reason: Anxiety Last Admin: 06/19/25 16:36 Dose: 50 mg Ibuprofen (Ibuprofen 800 Mg Tablet) 800 mg PO Q8H PRN PRN Reason: moderate pain Last Admin: 06/19/25 16:34 Dose: 800 mg Lactase (Lactase Tablet) 3 tab PO TIDWM [facility] Last Admin: 06/19/25 16:33 Dose: 3 tab Magnesium Hydroxide (Milk Of Magnesia 30 Ml Oral.Susp) 30 ml PO DAILY PRN PRN Reason: Constipation Magnesium Ox[facility] ([facility] 400 Mg [facility]) [facility] Last Admin: 06/19/25 17:32 Dose: 400 mg Metformin HCl (Metformin Hcl 500 Mg Tablet) 500 mg PO DAILY [facility] Last Admin: 06/19/25 08:57 Dose: 500 mg Methocarbamol (Methocarbamol 500 Mg Tablet) 500 mg PO TID PRN PRN Reason: severe pain Last Admin: 06/16/25 20:51 Dose: 500 mg Metoprolol Tartrate (Metoprolol Tartrate 50 Mg Tablet) 50 mg PO BID [facility]; Protocol Last Admin: 06/20/25 06:15 Dose: 50 mg Multivitamins/Vitamin C (Multivitamin Tablet) 1 tab PO DAILY [facility] Last Admin: 06/19/25 08:57 Dose: 1 tab Naloxone HCl (Naloxone Hcl 0.4 Mg/Ml Vial) 0.04 mg IVPUSH Q5M PRN PRN Reason: Excessive sedation or RR < 8 Nicotine Polacrilex (Nicotine Polacrilex 2 Mg Gum) 2 mg BUCCAL Q2H PRN PRN Reason: Nicotine Cravings Nitroglycerin (Nitroglycerin 0.4 Mg Tab.Subl) 0.4 mg SUBLINGUAL Q5MX3 PRN PRN Reason: chest pain Olanzapine (Olanzapine 5 Mg Tablet) 5 mg PO BID PRN PRN Reason: agitation Last Admin: 06/14/25 08:49 Dose: 5 mg Polyethylene Glycol (Polyethylene Glycol 3350 17 Gm Powd.Pack) 17 gm PO DAILY PRN PRN Reason: Constipation Last Admin: 06/12/25 14:45 Dose: 17 gm Sertraline HCl (Sertraline Hcl 100 Mg Tablet) 100 mg PO DAILY [facility] Last Admin: 06/19/25 08:55 Dose: 100 mg Simethicone (Simethicone 80 Mg Tab.Chew) 80 mg PO QIDWMHS [facility] Last Admin: 06/19/25 21:07 Dose: 80 mg Sucralfate (Sucralfate 1 Gm Tablet) 1 gm PO QIDACHS [facility] Last Admin: 06/19/25 21:07 Dose: 1 gm Tamsulosin HCl (Tamsulosin Hcl 0.4 Mg Capsule) 0.8 mg PO BEDTIME [facility] Last Admin: 06/19/25 21:05 Dose: 0.8 mg Trazodone HCl (Trazodone Hcl 50 Mg Tablet) 50 mg PO BEDTIME MRX1 PRN PRN Reason: Insomnia Last Admin: 06/13/25 23:33 Dose: 50 mg Trazodone HCl (Trazodone Hcl 100 Mg Tablet) 100 mg PO BEDTIME [facility] Last Admin: 06/19/25 21:06 Dose: 100 mg Venlafaxine HCl (Venlafaxine Hcl Er 37.5 Mg Cap.Er.24h) 37.5 mg PO DAILY [facility] Last Admin: 06/20/25 06:15 Dose: 37.5 mg Vitamin D (Cholecalciferol (Vitamin D3) 25 Mcg Tablet) 50 mcg PO DAILY [facility] Last Admin: 06/19/25 08:58 Dose: 50 mcg Home Medications ?Medication ?Instructions ?Recorded ?Confirmed ?Last Taken ?Type aspirin 81 mg tablet,delayed 81 mg PO DAILY 06/09/25 06/09/25 06/08/25 History release atorvastatin 40 mg tablet 40 mg PO BEDTIME cholesterol 06/09/25 06/09/25 06/08/25 History calcium 500 mg (as 2 tab PO BID 06/09/25 06/09/25 Unknown History carbonate)-vitamin D3 5 mcg (200 unit) tablet ([place] Calcium-Vitamin D3) cholecalciferol (vitamin D3) 50 50 mcg PO DAILY 06/09/25 06/09/25 06/08/25 History mcg (2,000 unit) capsule clozapine 100 mg tablet 300 mg PO BEDTIME 06/09/25 06/09/25 06/08/25 History clozapine 50 mg tablet 50 mg PO BEDTIME 06/09/25 06/09/25 06/08/25 History dextroamphetamine-amphetamine ER 2 cap PO DAILY 06/09/25 06/09/25 06/08/25 History 10 mg 24hr capsule,extend release docusate sodium 100 mg capsule 100 mg PO BID 06/09/25 06/09/25 06/08/25 History duloxetine 60 mg capsule,delayed 60 mg PO DAILY 06/09/25 06/09/25 06/08/25 History release famotidine 20 mg tablet 20 mg PO BID acid reflux 06/09/25 06/09/25 Unknown History guanfacine 1 mg tablet,extended 1 mg PO DAILY 06/09/25 06/09/25 Unknown History release 24 hr ibuprofen 800 mg tablet 800 mg PO Q8H PRN pain 06/09/25 06/09/25 Unknown History lorazepam 1 mg tablet 1 mg PO BEDTIME PRN insomnia 06/09/25 06/09/2506/08/25 History metoprolol succinate 25 mg 75 mg PO DAILY 06/09/25 06/09/25 Unknown History tablet,extended release 24 hr multivitamin with folic acid 400 1 tab PO DAILY 06/09/25 06/09/25 06/08/25 History mcg tablet (Daily-Avtar (with folic acid)) sertraline 100 mg tablet 100 mg PO DAILY 06/09/25 06/09/25 06/08/25 History sucralfate 1 gram tablet 1 g PO QID 06/09/25 06/09/25 Unknown History tamsulosin 0.4 mg capsule 0.4 mg PO BEDTIME 06/09/25 06/09/25 06/03/25 History trazodone 100 mg tablet 100 mg PO BEDTIME 06/09/25 06/09/25 06/08/25 History venlafaxine 75 mg capsule,extended 75 mg PO QAM 06/09/25 06/09/25 06/08/25 History release 24 hr vitamin B complex 1 cap PO DAILY 06/09/25 06/09/25 06/08/25 History Exam Height,Weight and Vital Signs: Height 6 ft Weight 92.193 kg Last Vital Signs Temp 97.2 F 06/20/25 06:32 Pulse 76 06/20/25 06:32 Resp 16 06/20/25 06:32 BP 118/73 06/20/25 06:32 Pulse Ox 98 06/20/25 06:32 O2 Del Method Nasal Cannula with Capnography 06/20/25 06:32 O2 Flow Rate 2 06/20/25 06:32 Pertinent Lab Results Pertinent Lab Results: Laboratory Tests 06/10/25 06/14/25 06/14/25 08:07 14:27 17:34 WBC 7.9 RBC 4.55 L Hgb 13.0 L Hct 38.2 L MCV 84.0 MCH 28.6 MCHC 34.0 RDW 13.4 Plt Count 284 MPV 9.2 L Immature Gran % (Auto) 0.3 Neut % (Auto) 68.0 Lymph % (Auto) 21.6 Mccone % (Auto) 7.3 Eos % (Auto) 1.9 Baso % (Auto) 0.9 Lymph # (Auto) 1.7 Mccone # (Auto) 0.6 Eos # (Auto) 0.2 Baso # (Auto) 0.1 Abs Immat Gran (auto) 0.02 Absolute Neuts (auto) 5.7 5.4 Absolute Nucleated RBC 0.000 Nucleated RBC % (auto) 0.0 Sodium 141 139 Potassium 3.9 4.3 Chloride 108 103 Carbon Dioxide 23 26 Anion Gap 14 14 BUN 8 L 19 H Creatinine 0.94 1.19 Estim Creat Clear Calc 91.7 72.4 Estimated GFR > 60 > 60 Random Glucose 110 135 H Estimat Average Glucose 114 Hemoglobin A1c % 5.6 Calcium 9.5 9.8 Total Bilirubin 0.3 0.3 AST 20 22 ALT 27 42 H Alkaline Phosphatase 95 93 Troponin I High Sens < 2.7 Total Protein 7.5 7.6 Albumin 4.7 4.8 Triglycerides 298 H Cholesterol 159 LDL Cholesterol, Calc 73 HDL Cholesterol 27 L TSH 0.86 Free T4 1.01 06/17/25 06/17/25 17:35 17:36 WBC RBC Hgb Hct MCV MCH MCHC RDW Plt Count MPV Immature Gran % (Auto) Neut % (Auto) Lymph % (Auto) Mccone % (Auto) Eos % (Auto) Baso % (Auto) Lymph # (Auto) Mccone # (Auto) Eos # (Auto) Baso # (Auto) Abs Immat Gran (auto) Absolute Neuts (auto) 5.5 Absolute Nucleated RBC Nucleated RBC % (auto) Sodium Potassium Chloride Carbon Dioxide Anion Gap BUN Creatinine 1.13 Estim Creat Clear Calc 76.3 Estimated GFR > 60 Random Glucose Estimat Average Glucose Hemoglobin A1c % Calcium Total Bilirubin AST ALT Alkaline Phosphatase Troponin I High Sens Total Protein Albumin Triglycerides Cholesterol LDL Cholesterol, Calc HDL Cholesterol TSH Free T4 Airway Mallampati Class: II (edentulous) TM Dist: >3cm Neck ROM: Full Heart: rrr Lungs: cta Assessment and Plan Assessment Anesthesia Assessment: Anesthesia Plan Discussed and Chart Reviewed Final Anesthetic Review Family History of Problems with Anesthesia: No History of Problems with Anesthesia: No NPO: Yes ASA Class: III Final Preanesthetic Review: No Changes in Pt Med Stat, Meds/Allgs Chart Reviewed and Consent Obtained/Reviewed Patient Risk: Intermediate Procedure Risk: Intermediate Anesthetic Plan Anesthetic Plan: GA Disposition: Standard PACU
--- NOTE | 2025-06-20 06:45 | PC.NURSE ---
on rising for ECT prep, patient voided. when asked if he would like to have a bladder scan stated ''no, I feel like I emptied my bladder.''
--- NOTE | 2025-06-20 07:05 | MHC.SHP ---
Pre-Procedural Eval Section A - 24 Hr Update-Section A only Date of Service: 06/20/25 The patient is an INPATIENT: Yes Changes since office visit: No Cold of Flu in the past 2 weeks, No New Medical Problems, No Changes in Medication and No Patient answered all questions The patient has been examined within 24 hours of the surgical procedure. The History & Physical has been completed within 30 days and I have reviewed it.: Yes Section B - Complete if H&P > 30 days Chief Complaint: SI Details of Present Illness: Ongoing depression. Denies SI. See M3 notes for details Relevant Family History (Specify if Yes): No Relevant Social History: None Present Medications: see Short Stay Collaborative assessment Medical History: No relevant PMH History of Previous Operations: No relevant previous surgery Allergies: Allergies Allergy/AdvReac Type Severity Reaction Status Date / Time bupropion Allergy Rash Verified 06/09/25 19:07 haloperidol (From Haldol) Allergy Rash Verified 06/09/25 19:07 lactose Allergy Gastrointestinal Verified 06/09/25 19:07 Upset peanut Allergy Anaphylaxis Verified 06/09/25 19:07 ziprasidone Allergy Rash Verified 06/09/25 19:07 Review of Systems Sugical H&P ROS: Negative: Constitution, Cardiovascular, Respiratory, Neurological, Psychiatric, Hem-Onc, Allergic/Immunologic, Gastrointestinal, Genitourinary, Integumentary, Endocrine and Eyes/Ears/Nose/Throat and Yes, Specify: Musculoskeletal (rib pain) Plan Diagnosis/Plan: Unchanged I have reviewed the history and physical and performed a pertinent physical examination on my patient. No changes have occurred unless specified. Time Spent With Patient Time: Total time managing care of this patient today ____ minutes.
--- NOTE | 2025-06-20 07:05 | HO.ECTPROC ---
ECT Procedure Note Diagnosis/Treatment Date of Service: 06/20/25 Diagnosis: Schizoaffective Disorder Previous ECT Date: 06/17/25 Current Treatment Number: 3 Treatment: Series Interval Clinical Notes: pt feeling somewhat better no active si no c/o side effects hx of cad and cabg Time: Total time managing care of this patient today ____ minutes. ECT Settings Device: THYMATRON DGx Electrode Placement: Right Unilateral Program/Pulse Width: 0.25 Energy Percent: 65 Seizure Duration By EEG (in seconds): 29 Medications Administration General Anesthetic: Etomidate (16) Muscle Relaxant: Succinylcholine (100) Ancillary Medications Anti-emetics: Zofran - Pre ECT (4 mg) Cardiovascular Medications: Labetolol (5 mg pre tx) Miscillaneous Medications: Midazolam (2 mg post) Airway Management Airway Management: Bag Mask Ventilation Treatment Recommendations No Changes Recommended: No change Pt Tolerated Procedure w/o Issue: Yes
[2025-06-20] MEDS: Calcium + Vitamin D 250 MG TABLET 500 MG PO ×2 (08:50→21:04)
[2025-06-20] MEDS: Aspirin Enteric Coated 81 MG TABLET.DR PO (08:52)
--- NOTE | 2025-06-20 15:31 | HO.PSYCHPN ---
Subjective Subjective Date of Service: 06/20/25 Reason For Visit: SI Interim History: chart reviewed, case discussed with team. Pt has been getting bladder scanned q shift, aside from when he refuses it. He hasn't required a catheter and has had minimal residual urine after urinating. D/C'd the bladder scan Pt had his 3rd ECT this am, which he reports went well. He denies any adverse effects. He reports this depression is killing me . He endorses difficulty w/ processing information in the setting of depression and denies that it is related to the ECT. He denies SI. Endorses AH of voices that are a little bit mumbled . He continues to generally isolate in his room but is intermittently visible in the mlieu. Eating well. Slept 7 hrs last night. Mental Status Exam Mental Status Exam Narrative: Appearance: fair grooming/hygiene. good eye contact. Attitude:Cooperative Speech: Fluent and wnl in regard to volume, tone, prosody Motor activity: pill rolling tremor, lip smacking. ambulates w/ walker Mood: as noted above Affect: appropriate Thought process: goal directed Thought content: as noted above. Perception:does not appear to respond to internal stimuli Insight: fair Judgment: fair Diagnostics Vital Signs (24Hr): Vital Signs - 24 hr 06/19/25 21:03 06/20/25 06:09 06/20/25 06:10 Temperature 97.9 F 97.2 F 97.2 F Pulse Rate 96 91 91 Respiratory Rate 17 14 14 Blood Pressure 90/54 L 122/79 122/79 Pulse Oximetry 96 99 99 Oxygen Delivery Method Room Air Room Air Oxygen Flow Rate 06/20/25 06:32 06/20/25 07:24 06/20/25 07:25 Temperature 97.2 F 97 F Pulse Rate 76 85 81 Respiratory Rate 16 16 16 Blood Pressure 118/73 191/109 H 162/85 H Pulse Oximetry 98 90 L 98 Oxygen Delivery Method Nasal Cannula with ETCO2 Nasal Cannula with ETCO2 Nasal Cannula with ETCO2 Oxygen Flow Rate 2 4 4 06/20/25 07:30 06/20/25 07:35 06/20/25 07:45 Temperature Pulse Rate 83 83 75 Respiratory Rate 16 16 16 Blood Pressure 170/92 H 151/89 H 150/90 H Pulse Oximetry 98 100 99 Oxygen Delivery Method Nasal Cannula with ETCO2 Nasal Cannula with ETCO2 Nasal Cannula with ETCO2 Oxygen Flow Rate 4 4 4 06/20/25 08:00 06/20/25 08:15 06/20/25 08:45 Temperature 97 F 97.6 F Pulse Rate 67 64 70 Respiratory Rate 16 16 16 Blood Pressure 145/70 H 111/54 L 134/66 Pulse Oximetry 99 98 100 Oxygen Delivery Method Nasal Cannula with ETCO2 Room Air Oxygen Flow Rate 4 06/20/25 08:48 Temperature 97.6 F Pulse Rate 70 Respiratory Rate 16 Blood Pressure 134/66 Pulse Oximetry 100 Oxygen Delivery Method Room Air Oxygen Flow Rate BMI result Body Mass Index 27.6 Labs 06/14/25 14:27 06/17/25 17:36 Imaging Radiology Impressions: ITS Impressions Chest X-Ray 06/14/25 16:43 IMPRESSION: No evidence for acute disease in the chest. Electronically signed by: Concepcion Delarosa MD 06/14/2025 04:54 PM EDT RP Medications Medications Current Medications Acetaminophen (Acetaminophen 325 Mg Tablet) 975 mg PO BID PRN PRN Reason: Pain, Moderate(Pain Scale 4-6) Last Admin: 06/20/25 08:51 Dose: 975 mg Al Hydroxide/Mg Hydroxide (Magnesium Hydrox/Alum Hydrox 30 Ml Oral.Susp) 30 ml PO Q6H PRN PRN Reason: Heartburn/Nausea Aspirin (Aspirin Enteric Coated 81 Mg Tablet.Dr) 81 mg PO DAILY [facility] Last Admin: 06/20/25 08:52 Dose: 81 mg Atorvastatin Calcium (Atorvastatin Calcium 40 Mg Tablet) 40 mg PO BEDTIME [facility] Last Admin: 06/19/25 21:06 Dose: 40 mg Budesonide (Budesonide 180 Mcg Aer.Pow.Ba) 2 puff INHALE RDAILY [facility] Last Admin: 06/20/25 09:20 Dose: 2 puff Calcium Carbonate/Cholecalciferol (Calcium + Vitamin D 250 Mg Tablet) 500 mg PO BID [facility] Last Admin: 06/20/25 08:50 Dose: 500 mg Clozapine (Clozapine 25 Mg Tablet) 50 mg PO BEDTIME [facility] Last Admin: 06/19/25 21:06 Dose: 50 mg Clozapine (Clozapine 100 Mg Tablet) 300 mg PO BEDTIME [facility] Last Admin: 06/19/25 21:06 Dose: 300 mg Diphenhydramine HCl (Diphenhydramine Hcl 25 Mg Capsule) 50 mg PO BEDTIME PRN PRN Reason: Insomnia Docusate Sodium (Docusate Sodium 100 Mg Capsule) 100 mg PO BID [facility] Last Admin: 06/20/25 08:52 Dose: 100 mg Famotidine (Famotidine 20 Mg Tablet) 20 mg PO BID [facility] Last Admin: 06/20/25 06:16 Dose: 20 mg Folic Acid (Folic Acid 1 Mg Tablet) 1 mg PO DAILY [facility] Last Admin: 06/20/25 08:50 Dose: 1 mg Hydroxyzine HCl (Hydroxyzine Hcl 50 Mg Tablet) 50 mg PO Q8H PRN PRN Reason: Anxiety Last Admin: 06/20/25 14:36 Dose: 50 mg Lactated Ringer's (Lr) 1,000 mls @ 50 mls/hr IVCONT .Q20H [facility] Last Admin: 06/20/25 09:14 Dose: Not Given Ibuprofen (Ibuprofen 800 Mg Tablet) 800 mg PO Q8H PRN PRN Reason: moderate pain Last Admin: 06/19/25 16:34 Dose: 800 mg Lactase (Lactase Tablet) 3 tab PO TIDWM [facility] Last Admin: 06/20/25 11:16 Dose: 3 tab Magnesium Hydroxide (Milk Of Magnesia 30 Ml Oral.Susp) 30 ml PO DAILY PRN PRN Reason: Constipation Magnesium Oxide (Magnesium Oxide 400 Mg Tablet) [facility] Last Admin: 06/20/25 08:50 Dose: 400 mg Metformin HCl (Metformin Hcl 500 Mg Tablet) 500 mg PO DAILY [facility] Last Admin: 06/20/25 08:52 Dose: 500 mg Methocarbamol (Methocarbamol 500 Mg Tablet) 500 mg PO TID PRN PRN Reason: severe pain Last Admin: 06/20/25 11:17 Dose: 500 mg Metoprolol Tartrate (Metoprolol Tartrate 50 Mg Tablet) 50 mg PO BID [facility]; Protocol Last Admin: 06/20/25 06:15 Dose: 50 mg Multivitamins/Vitamin C (Multivitamin Tablet) 1 tab PO DAILY [facility] Last Admin: 06/20/25 08:52 Dose: 1 tab Naloxone HCl (Naloxone Hcl 0.4 Mg/Ml Vial) 0.04 mg IVPUSH Q5M PRN PRN Reason: Excessive sedation or RR < 8 Naloxone HCl (Naloxone Hcl 0.4 Mg/Ml Vial) 0.04 mg IVPUSH Q5M PRN PRN Reason: Excessive sedation or RR < 8 Nicotine Polacrilex (Nicotine Polacrilex 2 Mg Gum) 2 mg BUCCAL Q2H PRN PRN Reason: Nicotine Cravings Nitroglycerin (Nitroglycerin 0.4 Mg Tab.Subl) 0.4 mg SUBLINGUAL Q5MX3 PRN PRN Reason: chest pain Olanzapine (Olanzapine 5 Mg Tablet) 5 mg PO BID PRN PRN Reason: agitation Last Admin: 06/14/25 08:49 Dose: 5 mg Polyethylene Glycol (Polyethylene Glycol 3350 17 Gm Powd.Pack) 17 gm PO DAILY PRN PRN Reason: Constipation Last Admin: 06/12/25 14:45 Dose: 17 gm Sertraline HCl (Sertraline Hcl 100 Mg Tablet) 100 mg PO DAILY [facility] Last Admin: 06/20/25 09:20 Dose: 100 mg Simethicone (Simethicone 80 Mg Tab.Chew) 80 mg PO QIDWMHS [facility] Last Admin: 06/20/25 11:17 Dose: 80 mg Sucralfate (Sucralfate 1 Gm Tablet) 1 gm PO QIDACHS [facility] Last Admin: 06/20/25 11:17 Dose: 1 gm Tamsulosin HCl (Tamsulosin Hcl 0.4 Mg Capsule) 0.8 mg PO BEDTIME [facility] Last Admin: 06/19/25 21:05 Dose: 0.8 mg Trazodone HCl (Trazodone Hcl 50 Mg Tablet) 50 mg PO BEDTIME MRX1 PRN PRN Reason: Insomnia Last Admin: 06/13/25 23:33 Dose: 50 mg Trazodone HCl (Trazodone Hcl 100 Mg Tablet) 100 mg PO BEDTIME [facility] Last Admin: 06/19/25 21:06 Dose: 100 mg Venlafaxine HCl (Venlafaxine Hcl Er 37.5 Mg Cap.Er.24h) 37.5 mg PO DAILY [facility] Last Admin: 06/20/25 06:15 Dose: 37.5 mg Vitamin D (Cholecalciferol (Vitamin D3) 25 Mcg Tablet) 50 mcg PO DAILY [facility] Last Admin: 06/20/25 08:52 Dose: 50 mcg Allergies Allergies Allergy/AdvReac Type Severity Reaction Status Date / Time bupropion Allergy Rash Verified 06/09/25 19:07 haloperidol (From Haldol) Allergy Rash Verified 06/09/25 19:07 lactose Allergy Gastrointestinal Verified 06/09/25 19:07 Upset peanut Allergy Anaphylaxis Verified 06/09/25 19:07 ziprasidone Allergy Rash Verified 06/09/25 19:07 Assessment & Plan Assessment & Plan (1) Schizoaffective disorder, bipolar type: Status: Acute Code(s): F25.0 - Schizoaffective disorder, bipolar type (2) PTSD (post-traumatic stress disorder): Status: Acute Code(s): F43.10 - Post-traumatic stress disorder, unspecified (3) Coronary artery disease: Status: Acute Code(s): I25.10 - Atherosclerotic heart disease of [place] coronary artery without angina pectoris Plan Mr. Brink is a 59 y/o DWM with documented h/o schizophrenia, bipolar d/o, depression, PTSD, KASSIE, sleep apnea, HTN, CAD, hyponatremia, peripheral neuropathy, 3 KS's s/p CABG, unsteady gait, and type II DM who was brought to the [facility] ED due to AH and SI. He was transferred to [facility] for tx of severe depression, SI and psychotic sx. Plan: Admitted to for safety and stabilization Legal status- CV Admission medical consult ordered 5 minute safety checks due to fall risk. Uses a walker Meds- Continue current medications from [facility] list for now: Clozaril 50 mg qhs Clozaril 300 mg qhs for now (grp home list says 'bid at hs' and external med rec shows 300 mg qhs) Effexor XR 75 mg qam *per external med rec, it looks like pt is cross titrating from venlafaxine to sertraline, was previously on 225 mg qd. Will continue cross titration after clarifying when the doses were last adjusted diphenhydramine 50 mg qhs prn for insomna hydroxyzine 50 mg q 8 hrs prn for anxiety sertraline 100 mg qd trazodone 100 mg qhs acetaminophen 975 mg bid ASA 81 mg qam budesonide-formoterol 2 inhalations qd Calcium-Vit D 500mg-5 mcg tabs, 2 tabs po bid docusate 100 mg bid folic acid 1 mg qam ibuprofen 800 mg q 8 hrs prn for pain lactase 9000 unit tablet tid magnesium oxide 400 mg bid metformin 500 mg qam methocarbamol 500 mg q 8 hrs for muscle pain metoprolol 50 mg bid MVI qd nitroglycerin 0.4 mg SL q 5 min prn for chest pain u pt 3 doses simethicone 80 mg 4x/day after meals and at hs sucralfate 1 g 4x/day before meals tamsulosin 0.8 mg qhs Vit B complex qam Vit D3 50 mcg qam Will consider ECT 06/11: Trial GBP 100 mg TID for anxiety and pain. 06/12: DC Gabapentin. Monitor urinary retention/incontinence. He is on Tamsulosin. Continue current management and treatment plan. 06/13: Will refer to ECT due to inadequate response to multiple psychotropic medication trials including: current regimen- clozapine 350 mg qd, sertraline 100 mg qd, venlafaxine (tapering off, was up to 225 mg qd), trazodone 100 mg qhs Prior med trials: Prozac, Cymbalta, Lamictal, Strattera, Zyprexa, Adderall ER, Invega Sustenna, VPA -Will request hospitalist consult for risk stratification for ECT -Taper venlafaxine to 37.5 mg starting tomorrow 06/14: ECT ordered for tomorrow am. NPO except for meds with sips of water after midnight. Medically cleared for ECT today by Alejandra Dangelo NP ECT risk stratification. Patient without previous problems with anesthesia, has previously undergone ECT RCRI 0 points, no further cardiac workup or treatment indicated at this time. Patient denies any past problems with anesthesia. EKG pending, no evidence of ischemic changes Based on stated PMH, HPI, and physical exam, there are no There are no obvious contraindications to the planned procedure. Patient with moderate risk due to advancing age and history of coronary artery disease. 06/15: Completed ECT #1 today (RUL) and tolerated it well. Will continue current tx plan for now, with ECT #2 scheduled for 06/17: Continue current tx plan. ECT #2 scheduled for tomorrow. NPO and ECT orders entered. 06/17: Did well w/ ECT #2. Ordered NPO for ECT #3 on Tuesday 06/19: Laying in bed most of day. Patient continues to report feeling depressed; he reports not sleeping well last night but is not clear for reason. denies SI/HI/VH. +AH telling me I'm going to . Encouraged to leave room. continue tx plan. 06/20: ECT #3 completed today. Endorses ongoing depressed mood without signif improvement. Continue current tx plan. ECT #4 scheduled for 06/22. ECT & NPO orders are entered for 06/22 Reason for continued inpatient stay Substantial Risk for: med/psych decompensation Time Spent With Patient Time: Total time managing care of this patient today _25___ minutes.
[2025-06-21] MEDS: Aspirin Enteric Coated 81 MG TABLET.DR PO (08:19)
[2025-06-21] MEDS: Calcium + Vitamin D 250 MG TABLET 500 MG PO ×2 (08:19→20:50)
[2025-06-21 08:20] VITALS: BP 114/84; BP 120/84; PULSE 104; TEMP 36.2; O2SAT 97
[2025-06-21] MEDS: Venlafaxine HCl ER 37.5 MG CAP.ER.24H PO (08:20)
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
[2025-06-21 11:16] LABS: Appearance Urine Clear; Glucose Urine UA Negative (Negative); PH 7.0 (5.0-9.0); Specific Gravity - Urine 1.015 (1.005-1.025)
[2025-06-21 20:03] VITALS: BP 113/72; PULSE 80; TEMP 36.8; O2SAT 99
[2025-06-22] VITALS (13 sets, daily range): BP systolic 97–171; BP diastolic 64–105; PULSE 76–112; RESP 11–20; TEMP 36.2–36.6; O2SAT 95–99
--- NOTE | 2025-06-22 09:24 | HO.PSYCHPN ---
Subjective Subjective Date of Service: 06/22/25 Reason For Visit: SI Interim History: Chart reviewed, case discussed with team Met w/ pt and SW. PT reports that he's miserable, depressed. Denies significant improvement in his mood. ECT #4 was done after our meeting. Pt understands that it is still early in ECT series to expect significant improvement in his mood from the tx. Denies SI Endorses AH of mumbled voices. Denies CAH Endorses poor sleep. He was reported to have slept 8 hrs per nursing report. Appetie is okay He reports that the last group he attended was a few days ago. T/W and SW encouraged him to attend groups He states that he hasn't had a bm x 3 days and denies passing gas. Denies abdo pain. Hasn't utilized any prn's for constipation but is taking docusate and magnesium oxide as rx'd. Medication Compliance: Yes Side effects from medications: Yes (constipation likely 2/2 clozapine) Mental Status Exam Mental Status Exam Narrative: Appearance: wearing hospital fior. sitting in bed. good eye contact. fair grooming/hygiene Attitude:Cooperative Speech: Fluent and wnl in regard to volume, tone, prosody Motor activity: Occasional lip smacking. No other abnormal movements Mood: as noted above Affect: appropriate, constricted Thought process: goal directed Thought content: feelings of hopelessness, helplessness. Denies SI Perception: does not appear to respond to internal stimuli Cognition grossly intact Insight: fair Judgment: fair Diagnostics Vital Signs (24Hr): Vital Signs - 24 hr 06/21/25 20:03 06/22/25 06:04 06/22/25 07:56 Temperature 98.2 F 97.1 F 97.6 F Pulse Rate 80 112 H 79 Respiratory Rate 18 20 Blood Pressure 113/72 126/89 157/78 H Pulse Oximetry 99 99 98 Oxygen Delivery Method Room Air Room Air BMI result Body Mass Index 27.6 Labs 06/14/25 14:27 06/17/25 17:36 Labs: Laboratory Results - last 48 hr 06/21/25 10:40 Urine Color Yellow Urine Appearance Clear Urine pH 7.0 Ur Specific [place] 1.015 Urine Protein Negative Urine Glucose (UA) Negative Urine Ketones Negative Urine Blood Negative Urine Nitrite Negative Ur Leukocyte Esterase Negative Imaging Radiology Impressions: ITS Impressions Chest X-Ray 06/14/25 16:43 IMPRESSION: No evidence for acute disease in the chest. Electronically signed by: Concepcion Delarosa MD 06/14/2025 04:54 PM EDT Medications Medications Current Medications Acetaminophen (Acetaminophen 325 Mg Tablet) 975 mg PO BID PRN PRN Reason: Pain, Moderate(Pain Scale 4-6) Last Admin: 06/21/25 12:10 Dose: 975 mg Al Hydroxide/Mg Hydroxide (Magnesium Hydrox/Alum Hydrox 30 Ml Oral.Susp) 30 ml PO Q6H PRN PRN Reason: Heartburn/Nausea Aspirin (Aspirin Enteric Coated 81 Mg Tablet.Dr) 81 mg PO DAILY [facility] Last Admin: 06/22/25 08:05 Dose: Not Given Atorvastatin Calcium (Atorvastatin Calcium 40 Mg Tablet) 40 mg PO BEDTIME [facility] Last Admin: 06/21/25 20:50 Dose: 40 mg Budesonide (Budesonide 180 Mcg Aer.Pow.Ba) 2 puff INHALE RDAILY [facility] Last Admin: 06/22/25 08:09 Dose: Not Given Calcium Carbonate/Cholecalciferol (Calcium + Vitamin D 250 Mg Tablet) 500 mg PO BID [facility] Last Admin: 06/22/25 08:05 Dose: Not Given Clozapine (Clozapine 25 Mg Tablet) 50 mg PO BEDTIME [facility] Last Admin: 06/21/25 20:50 Dose: 50 mg Clozapine (Clozapine 100 Mg Tablet) 300 mg PO BEDTIME [facility] Last Admin: 06/21/25 20:50 Dose: 300 mg Diphenhydramine HCl (Diphenhydramine Hcl 25 Mg Capsule) 50 mg PO BEDTIME PRN PRN Reason: Insomnia Docusate Sodium (Docusate Sodium 100 Mg Capsule) 100 mg PO BID [facility] Last Admin: 06/22/25 08:06 Dose: Not Given Famotidine (Famotidine 20 Mg Tablet) 20 mg PO BID [facility] Last Admin: 06/22/25 08:02 Dose: 20 mg Folic Acid (Folic Acid 1 Mg Tablet) 1 mg PO DAILY [facility] Last Admin: 06/22/25 08:06 Dose: Not Given Hydroxyzine HCl (Hydroxyzine Hcl 50 Mg Tablet) 50 mg PO Q8H PRN PRN Reason: Anxiety Last Admin: 06/20/25 14:36 Dose: 50 mg Ibuprofen (Ibuprofen 800 Mg Tablet) 800 mg PO Q8H PRN PRN Reason: moderate pain Last Admin: 06/21/25 10:15 Dose: 800 mg Lactase (Lactase Tablet) 3 tab PO TIDWM [facility] Last Admin: 06/22/25 08:05 Dose: Not Given Magnesium Hydroxide (Milk Of Magnesia 30 Ml Oral.Susp) 30 ml PO DAILY PRN PRN Reason: Constipation Magnesium Oxide ([facility]esium Oxide 400 Mg Tablet) [facility] Last Admin: 06/22/25 08:05 Dose: Not Given Metformin HCl (Metformin Hcl 500 Mg Tablet) 500 mg PO DAILY [facility] Last Admin: 06/22/25 08:06 Dose: Not Given Methocarbamol (Methocarbamol 500 Mg Tablet) 500 mg PO TID PRN PRN Reason: severe pain Last Admin: 06/21/25 12:26 Dose: 500 mg Metoprolol Tartrate (Metoprolol Tartrate 50 Mg Tablet) 50 mg PO BID [facility]; Protocol Last Admin: 06/22/25 08:02 Dose: 50 mg Multivitamins/Vitamin C (Multivitamin Tablet) 1 tab PO DAILY [facility] Last Admin: 06/22/25 08:06 Dose: Not Given Naloxone HCl (Naloxone Hcl 0.4 Mg/Ml Vial) 0.04 mg IVPUSH Q5M PRN PRN Reason: Excessive sedation or RR < 8 Naloxone HCl (Naloxone Hcl 0.4 Mg/Ml Vial) 0.04 mg IVPUSH Q5M PRN PRN Reason: Excessive sedation or RR < 8 Nicotine Polacrilex (Nicotine Polacrilex 2 Mg Gum) 2 mg BUCCAL Q2H PRN PRN Reason: Nicotine Cravings Nitroglycerin (Nitroglycerin 0.4 Mg Tab.Subl) 0.4 mg SUBLINGUAL Q5MX3 PRN PRN Reason: chest pain Olanzapine (Olanzapine 5 Mg Tablet) 5 mg PO BID PRN PRN Reason: agitation Last Admin: 06/14/25 08:49 Dose: 5 mg Polyethylene Glycol (Polyethylene Glycol 3350 17 Gm Powd.Pack) 17 gm PO DAILY PRN PRN Reason: Constipation Last Admin: 06/12/25 14:45 Dose: 17 gm Sertraline HCl (Sertraline Hcl 100 Mg Tablet) 100 mg PO DAILY [facility] Last Admin: 06/22/25 08:06 Dose: Not Given Simethicone (Simethicone 80 Mg Tab.Chew) 80 mg PO QIDWMHS [facility] Last Admin: 06/22/25 08:05 Dose: Not Given Sucralfate (Sucralfate 1 Gm Tablet) 1 gm PO QIDACHS [facility] Last Admin: 06/22/25 08:05 Dose: Not Given Tamsulosin HCl (Tamsulosin Hcl 0.4 Mg Capsule) 0.8 mg PO BEDTIME [facility] Last Admin: 06/21/25 20:51 Dose: 0.8 mg Trazodone HCl (Trazodone Hcl 50 Mg Tablet) 150 mg PO BEDTIME [facility] Last Admin: 06/21/25 20:50 Dose: 150 mg Trazodone HCl (Trazodone Hcl 50 Mg Tablet) 50 mg PO BEDTIME PRN PRN Reason: Insomnia Vitamin D (Cholecalciferol (Vitamin D3) 25 Mcg Tablet) 50 mcg PO DAILY [facility] Last Admin: 06/22/25 08:06 Dose: Not Given Allergies Allergies Allergy/AdvReac Type Severity Reaction Status Date / Time bupropion Allergy Rash Verified 06/09/25 19:07 haloperidol (From Haldol) Allergy Rash Verified 06/09/25 19:07 lactose Allergy Gastrointestinal Verified 06/09/25 19:07 Upset peanut Allergy Anaphylaxis Verified 06/09/25 19:07 ziprasidone Allergy Rash Verified 06/09/25 19:07 Assessment & Plan Assessment & Plan (1) Schizoaffective disorder, bipolar type: Status: Acute Code(s): F25.0 - Schizoaffective disorder, bipolar type (2) PTSD (post-traumatic stress disorder): Status: Acute Code(s): F43.10 - Post-traumatic stress disorder, unspecified (3) Coronary artery disease: Status: Acute Code(s): I25.10 - Atherosclerotic heart disease of [place] coronary artery without angina pectoris Plan Mr. 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 He was transferred to [facility] for tx of severe depression, SI and psychotic sx. Plan: Admitted to for safety and stabilization Legal status- CV Admission medical consult ordered 5 minute safety checks due to fall risk. Uses a walker Meds- Continue current medications from [facility] list for now: Clozaril 50 mg qhs Clozaril 300 mg qhs for now (grp home list says 'bid at hs' and external med rec shows 300 mg qhs) Effexor XR 75 mg qam *per external med rec, it looks like pt is cross titrating from venlafaxine to sertraline, was previously on 225 mg qd. Will continue cross titration after clarifying when the doses were last adjusted diphenhydramine 50 mg qhs prn for insomna hydroxyzine 50 mg q 8 hrs prn for anxiety sertraline 100 mg qd trazodone 100 mg qhs acetaminophen 975 mg bid ASA 81 mg qam budesonide-formoterol 2 inhalations qd Calcium-Vit D 500mg-5 mcg tabs, 2 tabs po bid docusate 100 mg bid folic acid 1 mg qam ibuprofen 800 mg q 8 hrs prn for pain lactase 9000 unit tablet tid magnesium oxide 400 mg bid metformin 500 mg qam methocarbamol 500 mg q 8 hrs for muscle pain metoprolol 50 mg bid MVI qd nitroglycerin 0.4 mg SL q 5 min prn for chest pain u pt 3 doses simethicone 80 mg 4x/day after meals and at hs sucralfate 1 g 4x/day before meals tamsulosin 0.8 mg qhs Vit B complex qam Vit D3 50 mcg qam Will consider ECT 06/11: Trial GBP 100 mg TID for anxiety and pain. 06/12: DC Gabapentin. Monitor urinary retention/incontinence. He is on Tamsulosin. Continue current management and treatment plan. 06/13: Will refer to ECT due to inadequate response to multiple psychotropic medication trials including: current regimen- clozapine 350 mg qd, sertraline 100 mg qd, venlafaxine (tapering off, was up to 225 mg qd), trazodone 100 mg qhs Prior med trials: Prozac, Cymbalta, Lamictal, Strattera, Zyprexa, Adderall ER, Invega Sustenna, VPA -Will request hospitalist consult for risk stratification for ECT -Taper venlafaxine to 37.5 mg starting tomorrow 06/14: ECT ordered for tomorrow am. NPO except for meds with sips of water after midnight. Medically cleared for ECT today by Alejandra Dangelo NP ECT risk stratification. Patient without previous problems with anesthesia, has previously undergone ECT RCRI 0 points, no further cardiac workup or treatment indicated at this time. Patient denies any past problems with anesthesia. EKG pending, no evidence of ischemic changes Based on stated PMH, HPI, and physical exam, there are no There are no obvious contraindications to the planned procedure. Patient with moderate risk due to advancing age and history of coronary artery disease. 06/15: Completed ECT #1 today (RUL) and tolerated it well. Will continue current tx plan for now, with ECT #2 scheduled for 06/17: Continue current tx plan. ECT #2 scheduled for tomorrow. NPO and ECT orders entered. 06/17: Did well w/ ECT #2. Ordered NPO for ECT #3 on Tuesday 06/19: Laying in bed most of day. Patient continues to report feeling depressed; he reports not sleeping well last night but is not clear for reason. denies SI/HI/VH. +AH telling me I'm going to . Encouraged to leave room. continue tx plan. 06/20: ECT #3 completed today. Endorses ongoing depressed mood without signif improvement. Continue current tx plan. ECT #4 scheduled for 06/22. ECT & NPO orders are entered for 06/22 06/21: Pt is agreeable w/ plan to d/c venlafaxine (seems to have started x-titration to sertraline during one of his inpt admissions). Will titrate standing dose of trazodone to 150 mg qhs. ECT #4 scheduled for tomorrow 06/22: Completed ECT #4. Now off venlafaxine. C/O constipation x 3 days. TW asked pt's nurse to give him MiraLax. Pt denies significant improvement in depression thus far. I explained that it's still early in the ECT series to expect a significant response. Medical necessity for continued inpatient psychiatric treatment: Continuation of ECT series for depression. Unable to engage in outpatient ECT since there are no ECT providing facilities near [facility] in [place]. Treatment failure with multiple psychotropic trials and previous positive reponse to ECT Patient educated on: medication risk/benefits and ECT Informed Consent: understands Reason for continued inpatient stay Substantial Risk for: inability to function and med/psych decompensation Time Spent With Patient Time: Total time managing care of this patient today _30___ minutes.
--- NOTE | 2025-06-22 12:45 | HO.ECTPROC ---
ECT Procedure Note Diagnosis/Treatment Date of Service: 06/22/25 Diagnosis: Schizoaffective Disorder Previous ECT Date: 06/20/25 Current Treatment Number: 4 Treatment: Series Interval Clinical Notes: Pt remains depressed. Denies significant improvement in his mood. Denies SI. Denies any issues with last tx Time: Total time managing care of this patient today __30__ minutes. ECT Settings Device: THYMATRON DGx Electrode Placement: Right Unilateral Program/Pulse Width: 0.25 Energy Percent: 65 Seizure Duration By EEG (in seconds): 25 (There was artifact on initial EEG but identified postictal suppression that correlated w/ HR drop. Replaced EEG leads to ensure clear postictal suppression (w/o artifact) ) By Motor Observation (in seconds): 19 Medications Administration General Anesthetic: Etomidate (16 mg) Muscle Relaxant: Succinylcholine (100 mg) Ancillary Medications Anti-emetics: Zofran - Pre ECT (4 mg) Cardiovascular Medications: Labetolol (2.5 mg pre-tx, 2.5 mg right after shock, 2.5 mg in recovery) Miscillaneous Medications: Midazolam (2 mg (due to h/o agitation on awakening in setting of previous awareness during surgery)) Airway Management Airway Management: Bag Mask Ventilation Treatment Recommendations No Changes Recommended: No change Pt Tolerated Procedure w/o Issue: Yes
--- NOTE | 2025-06-22 12:45 | MHC.SHP ---
Pre-Procedural Eval Section A - 24 Hr Update-Section A only Date of Service: 06/22/25 The patient is an INPATIENT: Yes Changes since office visit: No Cold of Flu in the past 2 weeks, No New Medical Problems, No Changes in Medication and No Patient answered all questions The patient has been examined within 24 hours of the surgical procedure. The History & Physical has been completed within 30 days and I have reviewed it.: Yes Section B - Complete if H&P > 30 days Chief Complaint: SI Details of Present Illness: Denies significant improvement in sx of depression thus far. Denies SI. Denies any adverse effects from last tx. Relevant Family History (Specify if Yes): No Relevant Social History: None Present Medications: see Short Stay Collaborative assessment Medical History: No relevant PMH History of Previous Operations: No relevant previous surgery Allergies: Allergies Allergy/AdvReac Type Severity Reaction Status Date / Time bupropion Allergy Rash Verified 06/09/25 19:07 haloperidol (From Haldol) Allergy Rash Verified 06/09/25 19:07 lactose Allergy Gastrointestinal Verified 06/09/25 19:07 Upset peanut Allergy Anaphylaxis Verified 06/09/25 19:07 ziprasidone Allergy Rash Verified 06/09/25 19:07 Review of Systems Sugical H&P ROS: Negative: Constitution, Cardiovascular, Respiratory, Neurological, Allergic/Immunologic, Gastrointestinal, Genitourinary, Integumentary, Endocrine and Eyes/Ears/Nose/Throat and Yes, Specify: Psychiatric (depression) and Musculoskeletal (chronic foot/ankle pain) Plan Diagnosis/Plan: Unchanged I have reviewed the history and physical and performed a pertinent physical examination on my patient. No changes have occurred unless specified. Time Spent With Patient Time: Total time managing care of this patient today __ minutes.
--- NOTE | 2025-06-22 13:45 | HO.ANESPROP2 ---
[facility] Active Problems Active Problems: All Active Problems (Updated 06/10/25 @ 15:18 by Maye Byers MD) PTSD (post-traumatic stress disorder) (Acute) Schizoaffective disorder, bipolar type (Acute) Coronary artery disease (Acute) Past Medical History Functional capacity: independent ambulation Family History Family history of problems with anesthesia: No Surgical History History of Problems with Anesthesia: No Social History Social History Household Members: Other Household Members Other:: [facility] residents Housing: Other Housing Other:: [facility] Do you presently have visiting nurse or other home services: Yes ([employer]) Comment: 5 min for walker Patient Tobacco Use Status: Former Tobacco user Tobacco use type: Cigarette Cigarettes Per Day: 3 Years Smoked: 43 Smoked in Last 30 Days: Yes e-Cigarette/Vaping Use: Never Used Patient Interested in Nicotine Replacement: No Patient Given Instructions on How to Stop Smoking: Yes Date Education Initiated: 06/09/25 Second Hand Smoke Exposure: No Currently Displaying Signs/Symptoms of Drug Intoxication Withdrawal: No Have you been hit, kicked, punched, or otherwise hurt by someone within the past year? If so, by whom?: No Do you feel safe in your current relationship?: No Current Relationship Is there a partner from a previous relationship who is making you feel unsafe now?: No Are you made to feel afraid or neglected: No Advance Directives: No Advance Directives Information Provided: No Advance Directives on File: No Do you have thoughts of harming others: None Do you have a plan to hurt others: No Plan Recently lost weight without trying: No How much weight loss: Not applicable Eating poorly because of decreased appetite: No Nutrition screen score: 0 Nutrition Risks: No Nutritional Risk service: No Sexual orientation: Straight/Heterosexual Meds Allergies Allergy/AdvReac Type Severity Reaction Status Date / Time bupropion Allergy Rash Verified 06/09/25 19:07 haloperidol (From Haldol) Allergy Rash Verified 06/09/25 19:07 lactose Allergy Gastrointestinal Verified 06/09/25 19:07 Upset peanut Allergy Anaphylaxis Verified 06/09/25 19:07 ziprasidone Allergy Rash Verified 06/09/25 19:07 Active Medications: Current Medications Acetaminophen (Acetaminophen 325 Mg Tablet) 975 mg PO BID PRN PRN Reason: Pain, Moderate(Pain Scale 4-6) Last Admin: 06/21/25 12:10 Dose: 975 mg Al Hydroxide/Mg Hydroxide (Magnesium Hydrox/Alum Hydrox 30 Ml Oral.Susp) 30 ml PO Q6H PRN PRN Reason: Heartburn/Nausea Aspirin (Aspirin Enteric Coated 81 Mg Tablet.Dr) 81 mg PO DAILY [facility] Last Admin: 06/22/25 08:05 Dose: Not Given Atorvastatin Calcium (Atorvastatin Calcium 40 Mg Tablet) 40 mg PO BEDTIME [facility] Last Admin: 06/21/25 20:50 Dose: 40 mg Budesonide (Budesonide 180 Mcg Aer.Pow.Ba) 2 puff INHALE RDAILY [facility] Last Admin: 06/22/25 08:09 Dose: Not Given Calcium Carbonate/Cholecalciferol (Calcium + Vitamin D 250 Mg Tablet) 500 mg PO BID [facility] Last Admin: 06/22/25 08:05 Dose: Not Given Clozapine (Clozapine 25 Mg Tablet) 50 mg PO BEDTIME [facility] Last Admin: 06/21/25 20:50 Dose: 50 mg Clozapine (Clozapine 100 Mg Tablet) 300 mg PO BEDTIME [facility] Last Admin: 06/21/25 20:50 Dose: 300 mg Diphenhydramine HCl (Diphenhydramine Hcl 25 Mg Capsule) 50 mg PO BEDTIME PRN PRN Reason: Insomnia Docusate Sodium (Docusate Sodium 100 Mg Capsule) 100 mg PO BID [facility] Last Admin: 06/22/25 08:06 Dose: Not Given Famotidine (Famotidine 20 Mg Tablet) 20 mg PO BID [facility] Last Admin: 06/22/25 08:02 Dose: 20 mg Folic Acid (Folic Acid 1 Mg Tablet) 1 mg PO DAILY [facility] Last Admin: 06/22/25 08:06 Dose: Not Given Hydroxyzine HCl (Hydroxyzine Hcl 50 Mg Tablet) 50 mg PO Q8H PRN PRN Reason: Anxiety Last Admin: 06/20/25 14:36 Dose: 50 mg Ibuprofen (Ibuprofen 800 Mg Tablet) 800 mg PO Q8H PRN PRN Reason: moderate pain Last Admin: 06/21/25 10:15 Dose: 800 mg Lactase (Lactase Tablet) 3 tab PO TIDWM [facility] Last Admin: 06/22/25 08:05 Dose: Not Given Magnesium Hydroxide (Milk Of Magnesia 30 Ml Oral.Susp) 30 ml PO DAILY PRN PRN Reason: Constipation [facility] ([facility] 400 Mg [facility] Last Admin: 06/22/25 08:05 Dose: Not Given Metformin HCl (Metformin Hcl 500 Mg Tablet) 500 mg PO DAILY [facility] Last Admin: 06/22/25 08:06 Dose: Not Given Methocarbamol (Methocarbamol 500 Mg Tablet) 500 mg PO TID PRN PRN Reason: severe pain Last Admin: 06/21/25 12:26 Dose: 500 mg Metoprolol Tartrate (Metoprolol Tartrate 50 Mg Tablet) 50 mg PO BID [facility]; Protocol Last Admin: 06/22/25 08:02 Dose: 50 mg Multivitamins/Vitamin C (Multivitamin Tablet) 1 tab PO DAILY [facility] Last Admin: 06/22/25 08:06 Dose: Not Given Naloxone HCl (Naloxone Hcl 0.4 Mg/Ml Vial) 0.04 mg IVPUSH Q5M PRN PRN Reason: Excessive sedation or RR < 8 Naloxone HCl (Naloxone Hcl 0.4 Mg/Ml Vial) 0.04 mg IVPUSH Q5M PRN PRN Reason: Excessive sedation or RR < 8 Nicotine Polacrilex (Nicotine Polacrilex 2 Mg Gum) 2 mg BUCCAL Q2H PRN PRN Reason: Nicotine Cravings Nitroglycerin (Nitroglycerin 0.4 Mg Tab.Subl) 0.4 mg SUBLINGUAL Q5MX3 PRN PRN Reason: chest pain Olanzapine (Olanzapine 5 Mg Tablet) 5 mg PO BID PRN PRN Reason: agitation Last Admin: 06/14/25 08:49 Dose: 5 mg Polyethylene Glycol (Polyethylene Glycol 3350 17 Gm Powd.Pack) 17 gm PO DAILY PRN PRN Reason: Constipation Last Admin: 06/12/25 14:45 Dose: 17 gm Sertraline HCl (Sertraline Hcl 100 Mg Tablet) 100 mg PO DAILY [facility] Last Admin: 06/22/25 08:06 Dose: Not Given Simethicone (Simethicone 80 Mg Tab.Chew) 80 mg PO QIDWMHS [facility] Last Admin: 06/22/25 08:05 Dose: Not Given Sucralfate (Sucralfate 1 Gm Tablet) 1 gm PO QIDACHS [facility] Last Admin: 06/22/25 08:05 Dose: Not Given Tamsulosin HCl (Tamsulosin Hcl 0.4 Mg Capsule) 0.8 mg PO BEDTIME [facility] Last Admin: 06/21/25 20:51 Dose: 0.8 mg Trazodone HCl (Trazodone Hcl 50 Mg Tablet) 150 mg PO BEDTIME [facility] Last Admin: 06/21/25 20:50 Dose: 150 mg Trazodone HCl (Trazodone Hcl 50 Mg Tablet) 50 mg PO BEDTIME PRN PRN Reason: Insomnia Vitamin D (Cholecalciferol (Vitamin D3) 25 Mcg Tablet) 50 mcg PO DAILY [facility] Last Admin: 06/22/25 08:06 Dose: Not Given Home Medications ?Medication ?Instructions ?Recorded ?Confirmed ?Last Taken ?Type aspirin 81 mg tablet,delayed 81 mg PO DAILY 06/09/25 06/09/25 06/08/25 History release atorvastatin 40 mg tablet 40 mg PO BEDTIME cholesterol 06/09/25 06/09/25 06/08/25 History calcium 500 mg (as 2 tab PO BID 06/09/25 06/09/25 Unknown History carbonate)-vitamin D3 5 mcg (200 unit) tablet (Oyster Shell Calcium-Vitamin D3) cholecalciferol (vitamin D3) 50 50 mcg PO DAILY 06/09/25 06/09/25 06/08/25 History mcg (2,000 unit) capsule clozapine 100 mg tablet 300 mg PO BEDTIME 06/09/25 06/09/25 06/08/25 History clozapine 50 mg tablet 50 mg PO BEDTIME 06/09/25 06/09/25 06/08/25 History dextroamphetamine-amphetamine ER 2 cap PO DAILY 06/09/25 06/09/25 06/08/25 History 10 mg 24hr capsule,extend release docusate sodium 100 mg capsule 100 mg PO BID 06/09/25 06/09/25 06/08/25 History duloxetine 60 mg capsule,delayed 60 mg PO DAILY 06/09/25 06/09/25 06/08/25 History release famotidine 20 mg tablet 20 mg PO BID acid reflux 06/09/25 06/09/25 Unknown History guanfacine 1 mg tablet,extended 1 mg PO DAILY 06/09/25 06/09/25 Unknown History release 24 hr ibuprofen 800 mg tablet 800 mg PO Q8H PRN pain 06/09/25 06/09/25 Unknown History lorazepam 1 mg tablet 1 mg PO BEDTIME PRN insomnia 06/09/25 06/09/2506/08/25 History metoprolol succinate 25 mg 75 mg PO DAILY 06/09/25 06/09/25 Unknown History tablet,extended release 24 hr multivitamin with folic acid 400 1 tab PO DAILY 06/09/25 06/09/25 06/08/25 History mcg tablet (Daily-Avtar (with folic acid)) sertraline 100 mg tablet 100 mg PO DAILY 06/09/25 06/09/25 06/08/25 History sucralfate 1 gram tablet 1 g PO QID 06/09/25 06/09/25 Unknown History tamsulosin 0.4 mg capsule 0.4 mg PO BEDTIME 06/09/25 06/09/25 06/03/25 History trazodone 100 mg tablet 100 mg PO BEDTIME 06/09/25 06/09/25 06/08/25 History venlafaxine 75 mg capsule,extended 75 mg PO QAM 06/09/25 06/09/25 06/08/25 History release 24 hr vitamin B complex 1 cap PO DAILY 06/09/25 06/09/25 06/08/25 History Exam Exam Date and Time: 06/22/25 Height,Weight and Vital Signs: Height 6 ft Weight 92.193 kg Last Vital Signs Temp 97.6 F 06/22/25 12:40 Pulse 76 06/22/25 12:40 Resp 16 06/22/25 12:40 BP 97/68 06/22/25 12:40 Pulse Ox 96 06/22/25 12:40 O2 Del Method Room Air 06/22/25 12:40 O2 Flow Rate 4 06/20/25 08:00 Pertinent Lab Results Pertinent Lab Results: Laboratory Tests 06/10/25 06/14/25 06/14/25 08:07 14:27 17:34 WBC 7.9 RBC 4.55 L Hgb 13.0 L Hct 38.2 L MCV 84.0 MCH 28.6 MCHC 34.0 RDW 13.4 Plt Count 284 MPV 9.2 L Immature Gran % (Auto) 0.3 Neut % (Auto) 68.0 Lymph % (Auto) 21.6 [place] % (Auto) 7.3 Eos % (Auto) 1.9 Baso % (Auto) 0.9 Lymph # (Auto) 1.7 [place] # (Auto) 0.6 Eos # (Auto) 0.2 Baso # (Auto) 0.1 Abs Immat Gran (auto) 0.02 Absolute Neuts (auto) 5.7 5.4 Absolute Nucleated RBC 0.000 Nucleated RBC % (auto) 0.0 Sodium 141 139 Potassium 3.9 4.3 Chloride 108 103 Carbon Dioxide 23 26 Anion Gap 14 14 BUN 8 L 19 H Creatinine 0.94 1.19 Estim Creat Clear Calc 91.7 72.4 Estimated GFR > 60 > 60 Random Glucose 110 135 H Estimat Average Glucose 114 Hemoglobin A1c % 5.6 Calcium 9.5 9.8 Total Bilirubin 0.3 0.3 AST 20 22 ALT 27 42 H Alkaline Phosphatase 95 93 Troponin I High Sens < 2.7 Total Protein 7.5 7.6 Albumin 4.7 4.8 Triglycerides 298 H Cholesterol 159 LDL Cholesterol, Calc 73 HDL Cholesterol 27 L TSH 0.86 Free T4 1.01 Urine Color Urine Appearance Urine pH Ur Specific [place] Urine Protein Urine Glucose (UA) Urine Ketones Urine Blood Urine Nitrite Ur Leukocyte Esterase 06/17/25 06/17/25 06/21/25 17:35 17:36 10:40 WBC RBC Hgb Hct MCV MCH MCHC RDW Plt Count MPV Immature Gran % (Auto) Neut % (Auto) Lymph % (Auto) [place] % (Auto) Eos % (Auto) Baso % (Auto) Lymph # (Auto) [place] # (Auto) Eos # (Auto) Baso # (Auto) Abs Immat Gran (auto) Absolute Neuts (auto) 5.5 Absolute Nucleated RBC Nucleated RBC % (auto) Sodium Potassium Chloride Carbon Dioxide Anion Gap BUN Creatinine 1.13 Estim Creat Clear Calc 76.3 Estimated GFR > 60 Random Glucose Estimat Average Glucose Hemoglobin A1c % Calcium Total Bilirubin AST ALT Alkaline Phosphatase Troponin I High Sens Total Protein Albumin Triglycerides Cholesterol LDL Cholesterol, Calc HDL Cholesterol TSH Free T4 Urine Color Yellow Urine Appearance Clear Urine pH 7.0 Ur Specific [place] 1.015 Urine Protein Negative Urine Glucose (UA) Negative Urine Ketones Negative Urine Blood Negative Urine Nitrite Negative Ur Leukocyte Esterase Negative Airway Mallampati Class: II TM Dist: >3cm Neck ROM: Full Denture: Upper and Lower Loose/Missing/Broken Teeth: Yes Heart: rrr Lungs: ctab vesicular Assessment and Plan Assessment Anesthesia Assessment: Anesthesia Plan Discussed and Chart Reviewed Final Anesthetic Review Family History of Problems with Anesthesia: No History of Problems with Anesthesia: No NPO: Yes ASA Class: III Final Preanesthetic Review: No Changes in Pt Med Stat, Meds/Allgs Chart Reviewed, Consent Obtained/Reviewed and Anes Risks/Benef Reviewed Patient Risk: Low Procedure Risk: Low Anesthetic Plan Anesthetic Plan: GA Disposition: Standard PACU
[2025-06-22] MEDS: Calcium + Vitamin D 250 MG TABLET 500 MG PO ×2 (14:53→20:31)
[2025-06-22] MEDS: Aspirin Enteric Coated 81 MG TABLET.DR PO (14:55)
[2025-06-23 07:00] VITALS: BMI 27.7
[2025-06-23 08:00] VITALS: BP 135/66; PULSE 87; RESP 15; TEMP 36.7; O2SAT 97
[2025-06-23 09:32] VITALS: BP 135/66; PULSE 87
[2025-06-23] MEDS: Aspirin Enteric Coated 81 MG TABLET.DR PO (09:32)
[2025-06-23] MEDS: Calcium + Vitamin D 250 MG TABLET 500 MG PO ×2 (09:32→20:54)
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
[2025-06-23] MEDS: Venlafaxine HCl ER 37.5 MG CAP.ER.24H PO (13:53)
[2025-06-23 20:00] VITALS: BP 113/60; PULSE 80; RESP 16; TEMP 37; O2SAT 98
[2025-06-24] VITALS (9 sets, daily range): BP systolic 105–168; BP diastolic 60–103; PULSE 68–94; RESP 12–22; TEMP 36.2–36.9; O2SAT 93–99
[2025-06-24] MEDS: Venlafaxine HCl ER 37.5 MG CAP.ER.24H PO (05:55)
--- NOTE | 2025-06-24 06:46 | HO.ANESPROP2 ---
[facility] Active Problems Active Problems: All Active Problems PTSD (post-traumatic stress disorder) (Acute) Schizoaffective disorder, bipolar type (Acute) Coronary artery disease (Acute) Past Medical History Functional capacity: independent ambulation Family History Family history of problems with anesthesia: No Surgical History History of Problems with Anesthesia: No Social History Social History Household Members: Other Household Members Other:: detention residents Housing: Other Housing Other:: detention Do you presently have visiting nurse or other home services: Yes ([employer]) Comment: 5 min for walker Patient Tobacco Use Status: Former Tobacco user Tobacco use type: Cigarette Cigarettes Per Day: 3 Years Smoked: 43 Smoked in Last 30 Days: Yes e-Cigarette/Vaping Use: Never Used Patient Interested in Nicotine Replacement: No Patient Given Instructions on How to Stop Smoking: Yes Date Education Initiated: 06/09/25 Second Hand Smoke Exposure: No Currently Displaying Signs/Symptoms of Drug Intoxication Withdrawal: No Have you been hit, kicked, punched, or otherwise hurt by someone within the past year? If so, by whom?: No Do you feel safe in your current relationship?: No Current Relationship Is there a partner from a previous relationship who is making you feel unsafe now?: No Are you made to feel afraid or neglected: No Advance Directives: No Advance Directives Information Provided: No Advance Directives on File: No Do you have thoughts of harming others: None Do you have a plan to hurt others: No Plan Recently lost weight without trying: No How much weight loss: Not applicable Eating poorly because of decreased appetite: No Nutrition screen score: 0 Nutrition Risks: No Nutritional Risk service: No Sexual orientation: Straight/Heterosexual Meds Allergies Allergy/AdvReac Type Severity Reaction Status Date / Time bupropion Allergy Rash Verified 06/09/25 19:07 haloperidol (From Haldol) Allergy Rash Verified 06/09/25 19:07 lactose Allergy Gastrointestinal Verified 06/09/25 19:07 Upset peanut Allergy Anaphylaxis Verified 06/09/25 19:07 ziprasidone Allergy Rash Verified 06/09/25 19:07 Active Medications: Current Medications Acetaminophen (Acetaminophen 325 Mg Tablet) 975 mg PO BID PRN PRN Reason: Pain, Moderate(Pain Scale 4-6) Last Admin: 06/23/25 20:54 Dose: 975 mg Al Hydroxide/Mg Hydroxide (Magnesium Hydrox/Alum Hydrox 30 Ml Oral.Susp) 30 ml PO Q6H PRN PRN Reason: Heartburn/Nausea Aspirin (Aspirin Enteric Coated 81 Mg Tablet.Dr) 81 mg PO DAILY [facility] Last Admin: 06/23/25 09:32 Dose: 81 mg Atorvastatin Calcium (Atorvastatin Calcium 40 Mg Tablet) 40 mg PO BEDTIME [facility] Last Admin: 06/23/25 20:54 Dose: 40 mg Budesonide (Budesonide 180 Mcg Aer.Pow.Ba) 2 puff INHALE RDAILY [facility] Last Admin: 06/23/25 09:31 Dose: 2 puff Calcium Carbonate/Cholecalciferol (Calcium + Vitamin D 250 Mg Tablet) 500 mg PO BID [facility] Last Admin: 06/23/25 20:54 Dose: 500 mg Clozapine (Clozapine 100 Mg Tablet) 300 mg PO BEDTIME [facility] Last Admin: 06/23/25 20:53 Dose: 300 mg Diphenhydramine HCl (Diphenhydramine Hcl 25 Mg Capsule) 50 mg PO BEDTIME PRN PRN Reason: Insomnia Docusate Sodium (Docusate Sodium 100 Mg Capsule) 100 mg PO BID [facility] Last Admin: 06/23/25 21:39 Dose: Not Given Famotidine (Famotidine 20 Mg Tablet) 20 mg PO BID [facility] Last Admin: 06/24/25 05:55 Dose: 20 mg Folic Acid (Folic Acid 1 Mg Tablet) 1 mg PO DAILY [facility] Last Admin: 06/23/25 09:32 Dose: 1 mg Hydroxyzine HCl (Hydroxyzine Hcl 50 Mg Tablet) 50 mg PO Q8H PRN PRN Reason: Anxiety Last Admin: 06/23/25 17:26 Dose: 50 mg Ibuprofen (Ibuprofen 800 Mg Tablet) 800 mg PO Q8H PRN PRN Reason: moderate pain Last Admin: 06/23/25 18:53 Dose: 800 mg Lactase (Lactase Tablet) 3 tab PO TIDWM [facility] Last Admin: 06/23/25 17:27 Dose: 3 tab Magnesium Hydroxide (Milk Of Magnesia 30 Ml Oral.Susp) 30 ml PO DAILY PRN PRN Reason: Constipation Magnesium Oxide (Magnesium [facility] 400 Mg Tablet) [facility] Last Admin: 06/23/25 17:26 Dose: 400 mg Metformin HCl (Metformin Hcl 500 Mg Tablet) 500 mg PO DAILY [facility] Last Admin: 06/23/25 09:32 Dose: 500 mg Methocarbamol (Methocarbamol 500 Mg Tablet) 500 mg PO TID PRN PRN Reason: severe pain Last Admin: 06/22/25 20:42 Dose: 500 mg Metoprolol Tartrate (Metoprolol Tartrate 50 Mg Tablet) 50 mg PO BID [facility]; Protocol Last Admin: 06/24/25 05:55 Dose: 50 mg Multivitamins/Vitamin C (Multivitamin Tablet) 1 tab PO DAILY [facility] Last Admin: 06/23/25 09:33 Dose: 1 tab Naloxone HCl (Naloxone Hcl 0.4 Mg/Ml Vial) 0.04 mg IVPUSH Q5M PRN PRN Reason: Excessive sedation or RR < 8 Naloxone HCl (Naloxone Hcl 0.4 Mg/Ml Vial) 0.04 mg IVPUSH Q5M PRN PRN Reason: Excessive sedation or RR < 8 Naloxone HCl (Naloxone Hcl 0.4 Mg/Ml Vial) 0.04 mg IVPUSH Q5M PRN PRN Reason: Excessive sedation or RR < 8 Nicotine Polacrilex (Nicotine Polacrilex 2 Mg Gum) 2 mg BUCCAL Q2H PRN PRN Reason: Nicotine Cravings Nitroglycerin (Nitroglycerin 0.4 Mg Tab.Subl) 0.4 mg SUBLINGUAL Q5MX3 PRN PRN Reason: chest pain Olanzapine (Olanzapine 5 Mg Tablet) 5 mg PO BID PRN PRN Reason: agitation Last Admin: 06/22/25 18:21 Dose: 5 mg Polyethylene Glycol (Polyethylene Glycol 3350 17 Gm Powd.Pack) 17 gm PO DAILY PRN PRN Reason: Constipation Last Admin: 06/22/25 14:56 Dose: 17 gm Quetiapine Fumarate (Quetiapine Fumarate 50 Mg Tablet) 50 mg PO BEDTIME [facility] Last Admin: 06/23/25 20:53 Dose: 50 mg Sertraline HCl (Sertraline Hcl 100 Mg Tablet) 100 mg PO DAILY [facility] Last Admin: 06/23/25 09:32 Dose: 100 mg Simethicone (Simethicone 80 Mg Tab.Chew) 80 mg PO QIDWMHS [facility] Last Admin: 06/23/25 20:52 Dose: 80 mg Sucralfate (Sucralfate 1 Gm Tablet) 1 gm PO QIDACHS [facility] Last Admin: 06/23/25 20:53 Dose: 1 gm Tamsulosin HCl (Tamsulosin Hcl 0.4 Mg Capsule) 0.8 mg PO BEDTIME [facility] Last Admin: 06/23/25 20:52 Dose: 0.8 mg Trazodone HCl (Trazodone Hcl 50 Mg Tablet) 150 mg PO BEDTIME [facility] Last Admin: 06/23/25 20:52 Dose: 150 mg Trazodone HCl (Trazodone Hcl 50 Mg Tablet) 50 mg PO BEDTIME PRN PRN Reason: Insomnia Venlafaxine HCl (Venlafaxine Hcl Er 37.5 Mg Cap.Er.24h) 37.5 mg PO DAILY [facility] Last Admin: 06/24/25 05:55 Dose: 37.5 mg Vitamin D (Cholecalciferol (Vitamin D3) 25 Mcg Tablet) 50 mcg PO DAILY [facility] Last Admin: 06/23/25 09:32 Dose: 50 mcg Home Medications ?Medication ?Instructions ?Recorded ?Confirmed ?Last Taken ?Type aspirin 81 mg tablet,delayed 81 mg PO DAILY 06/09/25 06/09/25 06/08/25 History release atorvastatin 40 mg tablet 40 mg PO BEDTIME cholesterol 06/09/25 06/09/25 06/08/25 History calcium 500 mg (as 2 tab PO BID 06/09/25 06/09/25 Unknown History carbonate)-vitamin D3 5 mcg (200 unit) tablet (Oyster Shell Calcium-Vitamin D3) cholecalciferol (vitamin D3) 50 50 mcg PO DAILY 06/09/25 06/09/25 06/08/25 History mcg (2,000 unit) capsule clozapine 100 mg tablet 300 mg PO BEDTIME 06/09/25 06/09/25 06/08/25 History clozapine 50 mg tablet 50 mg PO BEDTIME 06/09/25 06/09/25 06/08/25 History dextroamphetamine-amphetamine ER 2 cap PO DAILY 06/09/25 06/09/25 06/08/25 History 10 mg 24hr capsule,extend release docusate sodium 100 mg capsule 100 mg PO BID 06/09/25 06/09/25 06/08/25 History duloxetine 60 mg capsule,delayed 60 mg PO DAILY 06/09/25 06/09/25 06/08/25 History release famotidine 20 mg tablet 20 mg PO BID acid reflux 06/09/25 06/09/25 Unknown History guanfacine 1 mg tablet,extended 1 mg PO DAILY 06/09/25 06/09/25 Unknown History release 24 hr ibuprofen 800 mg tablet 800 mg PO Q8H PRN pain 06/09/25 06/09/25 Unknown History lorazepam 1 mg tablet 1 mg PO BEDTIME PRN insomnia 06/09/25 06/09/25 06/08/25 History metoprolol succinate 25 mg 75 mg PO DAILY 06/09/25 06/09/25 Unknown History tablet,extended release 24 hr multivitamin with folic acid 400 1 tab PO DAILY 06/09/25 06/09/25 06/08/25 History mcg tablet (Daily-Avtar (with folic acid)) sertraline 100 mg tablet 100 mg PO DAILY 06/09/25 06/09/25 06/08/25 History sucralfate 1 gram tablet 1 g PO QID 06/09/25 06/09/25 Unknown History tamsulosin 0.4 mg capsule 0.4 mg PO BEDTIME 06/09/25 06/09/25 06/03/25 History trazodone 100 mg tablet 100 mg PO BEDTIME 06/09/25 06/09/25 06/08/25 History venlafaxine 75 mg capsule,extended 75 mg PO QAM 06/09/25 06/09/25 06/08/25 History release 24 hr vitamin B complex 1 cap PO DAILY 06/09/25 06/09/25 06/08/25 History Exam Height,Weight and Vital Signs: Height 6 ft Weight 92.703 kg Last Vital Signs Temp 97.1 F 06/24/25 06:30 Pulse 68 06/24/25 06:30 Resp 12 06/24/25 06:30 BP 105/69 06/24/25 06:30 Pulse Ox 96 06/24/25 06:30 O2 Del Method Room Air 06/24/25 06:30 O2 Flow Rate 3 06/22/25 13:46 Pertinent Lab Results Pertinent Lab Results: Laboratory Tests 06/10/25 06/14/25 06/14/25 08:07 14:27 17:34 WBC 7.9 RBC 4.55 L Hgb 13.0 L Hct 38.2 L MCV 84.0 MCH 28.6 MCHC 34.0 RDW 13.4 Plt Count 284 MPV 9.2 L Immature Gran % (Auto) 0.3 Neut % (Auto) 68.0 Lymph % (Auto) 21.6 [place] % (Auto) 7.3 Eos % (Auto) 1.9 Baso % (Auto) 0.9 Lymph # (Auto) 1.7 [place] # (Auto) 0.6 Eos # (Auto) 0.2 Baso # (Auto) 0.1 Abs Immat Gran (auto) 0.02 Absolute Neuts (auto) 5.7 5.4 Absolute Nucleated RBC 0.000 Nucleated RBC % (auto) 0.0 Sodium 141 139 Potassium 3.9 4.3 Chloride 108 103 Carbon Dioxide 23 26 Anion Gap 14 14 BUN 8 L 19 H Creatinine 0.94 1.19 Estim Creat Clear Calc 91.7 72.4 Estimated GFR > 60 > 60 Random Glucose 110 135 H Estimat Average Glucose 114 Hemoglobin A1c % 5.6 Calcium 9.5 9.8 Total Bilirubin 0.3 0.3 AST 20 22 ALT 27 42 H Alkaline Phosphatase 95 93 Troponin I High Sens < 2.7 Total Protein 7.5 7.6 Albumin 4.7 4.8 Triglycerides 298 H Cholesterol 159 LDL Cholesterol, Calc 73 HDL Cholesterol 27 L TSH 0.86 Free T4 1.01 Urine Color Urine Appearance Urine pH Ur Specific [place] Urine Protein Urine Glucose (UA) Urine Ketones Urine Blood Urine Nitrite Ur Leukocyte Esterase 06/17/25 06/17/25 06/21/25 17:35 17:36 10:40 WBC RBC Hgb Hct MCV MCH MCHC RDW Plt Count MPV Immature Gran % (Auto) Neut % (Auto) Lymph % (Auto) [place] % (Auto) Eos % (Auto) Baso % (Auto) Lymph # (Auto) [place] # (Auto) Eos # (Auto) Baso # (Auto) Abs Immat Gran (auto) Absolute Neuts (auto) 5.5 Absolute Nucleated RBC Nucleated RBC % (auto) Sodium Potassium Chloride Carbon Dioxide Anion Gap BUN Creatinine 1.13 Estim Creat Clear Calc 76.3 Estimated GFR > 60 Random Glucose Estimat Average Glucose Hemoglobin A1c % Calcium Total Bilirubin AST ALT Alkaline Phosphatase Troponin I High Sens Total Protein Albumin Triglycerides Cholesterol LDL Cholesterol, Calc HDL Cholesterol TSH Free T4 Urine Color Yellow Urine Appearance Clear Urine pH 7.0 Ur Specific [place] 1.015 Urine Protein Negative Urine Glucose (UA) Negative Urine Ketones Negative Urine Blood Negative Urine Nitrite Negative Ur Leukocyte Esterase Negative Airway Mallampati Class: II (edentulous) TM Dist: >3cm Neck ROM: Full Heart: rrr Lungs: cta Assessment and Plan Assessment Anesthesia Assessment: Anesthesia Plan Discussed and Chart Reviewed Final Anesthetic Review Family History of Problems with Anesthesia: No History of Problems with Anesthesia: No NPO: Yes ASA Class: III Final Preanesthetic Review: No Changes in Pt Med Stat, Meds/Allgs Chart Reviewed and Consent Obtained/Reviewed Patient Risk: Intermediate Procedure Risk: Intermediate Anesthetic Plan Anesthetic Plan: GA Disposition: Standard PACU
--- NOTE | 2025-06-24 07:33 | MHC.SHP ---
Pre-Procedural Eval Section A - 24 Hr Update-Section A only Date of Service: 06/24/25 The patient is an INPATIENT: Yes Changes since office visit: No Cold of Flu in the past 2 weeks, No New Medical Problems, No Changes in Medication and No Patient answered all questions Section B - Complete if H&P > 30 days Chief Complaint: SI Details of Present Illness: Depression slightly improved. Allergies: Allergies Allergy/AdvReac Type Severity Reaction Status Date / Time bupropion Allergy Rash Verified 06/09/25 19:07 haloperidol (From Haldol) Allergy Rash Verified 06/09/25 19:07 lactose Allergy Gastrointestinal Verified 06/09/25 19:07 Upset peanut Allergy Anaphylaxis Verified 06/09/25 19:07 ziprasidone Allergy Rash Verified 06/09/25 19:07 Plan Diagnosis/Plan: Unchanged I have reviewed the history and physical and performed a pertinent physical examination on my patient. No changes have occurred unless specified. Time Spent With Patient Time: Total time managing care of this patient today ____ minutes.
--- NOTE | 2025-06-24 07:58 | HO.ECTPROC ---
ECT Procedure Note Diagnosis/Treatment Date of Service: 06/24/25 Diagnosis: Schizoaffective Disorder Current Treatment Number: 5 Treatment: Series Interval Clinical Notes: Pt reports that ECT is starting to help somewhat. He is a/o x 3. He's been feeling a bit spacey an understands that it could be 2/2 ECT and/or venlafaxine taper. Had some muscle aches after last tx. Otherwise denies any issues with ECT Time: Total time managing care of this patient today ____ minutes. ECT Settings Device: THYMATRON DGx Electrode Placement: Right Unilateral Program/Pulse Width: 0.25 Energy Percent: 65 Seizure Duration By EEG (in seconds): 31 By Motor Observation (in seconds): 18 Medications Administration General Anesthetic: Etomidate (16 mg) Muscle Relaxant: Succinylcholine (100 mg) Ancillary Medications Anti-emetics: Zofran - Pre ECT (4 mg) Miscillaneous Medications: Propofol (30 mg for post-ECT mild agitation ) Airway Management Airway Management: Bag Mask Ventilation Treatment Recommendations Notes: Titrate energy if no significant improvement by next tx day Pt Tolerated Procedure w/o Issue: Yes
[2025-06-24] MEDS: Aspirin Enteric Coated 81 MG TABLET.DR PO (08:41)
[2025-06-24] MEDS: Calcium + Vitamin D 250 MG TABLET 500 MG PO ×2 (08:42→20:05)
--- NOTE | 2025-06-24 11:51 | P.PNPSI_ITS ---
Subjective Subjective Date of Service: 06/24/25 Reason For Visit: SI Interim History: Chart reviewed, case discussed w/ team. Pt completed ECT #5 earlier this am. T/W and SW met w/ pt in his room after he returned from ECT. He reports feeling 'a little better'. He smiled and made a joke. He denies any SE from ECT Endorses some paresthesias and twitches in his arm, which correlates w/ d/c'ing venlafaxine. He received his am dose right before we met w/ him. He reports that he's sleeping a little better Eating well. Denies SI Denies AH Had BM earlier today MSE: Wearing hospital fior. Grooming/hygiene wn. Good eye contact Speech is fluent and wnl Motor activity- occasional lip smacking (seems to be 2/2 being edentulous), otherwise calm. Ambulates w/ walker Mood- 'a little better' affect- appropriate, notably brighter Thought process: goal directed Thought content: Denies SI Medication Compliance: Yes Diagnostics Vital Signs (24Hr): Vital Signs - 24 hr 06/23/25 20:00 06/24/25 05:59 06/24/25 06:30 Temperature 98.6 F 97.4 F 97.1 F Pulse Rate 80 78 68 Respiratory Rate 16 14 12 Blood Pressure 113/60 120/72 105/69 Pulse Oximetry 98 99 96 Oxygen Delivery Method Room Air Room Air Oxygen Flow Rate 06/24/25 08:03 06/24/25 08:08 06/24/25 08:13 Temperature 97.5 F Pulse Rate 94 83 78 Respiratory Rate 14 14 15 Blood Pressure 168/102 H 164/103 H 161/99 H Pulse Oximetry 93 96 98 Oxygen Delivery Method Nasal Cannula Room Air Room Air Oxygen Flow Rate 2 06/24/25 08:18 06/24/25 08:31 06/24/25 08:39 Temperature 97.4 F 97.7 F Pulse Rate 79 78 72 Respiratory Rate 15 14 16 Blood Pressure 162/99 H 142/84 H 138/75 Pulse Oximetry 98 98 97 Oxygen Delivery Method Room Air Room Air Room Air Oxygen Flow Rate BMI result Body Mass Index 27.7 Labs 06/14/25 14:27 06/17/25 17:36 Imaging Radiology Impressions: ITS Impressions Chest X-Ray 06/14/25 16:43 IMPRESSION: No evidence for acute disease in the chest. Electronically signed by: Concepcion Delarosa MD 06/14/2025 04:54 PM EDT RP Medications Medications Current Medications Acetaminophen (Acetaminophen 325 Mg Tablet) 975 mg PO BID PRN PRN Reason: Pain, Moderate(Pain Scale 4-6) Last Admin: 06/23/25 20:54 Dose: 975 mg Al Hydroxide/Mg Hydroxide (Magnesium Hydrox/Alum Hydrox 30 Ml Oral.Susp) 30 ml PO Q6H PRN PRN Reason: Heartburn/Nausea Aspirin (Aspirin Enteric Coated 81 Mg Tablet.Dr) 81 mg PO DAILY [facility] [place] Last Admin: 06/24/25 08:41 Dose: 81 mg Atorvastatin Calcium (Atorvastatin Calcium 40 Mg Tablet) 40 mg PO BEDTIME [facility] [place] Last Admin: 06/23/25 20:54 Dose: 40 mg Budesonide (Budesonide 180 Mcg Aer.Pow.Ba) 2 puff INHALE RDAILY [facility] [place] Last Admin: 06/24/25 08:48 Dose: 2 puff Calcium Carbonate/Cholecalciferol (Calcium + Vitamin D 250 Mg Tablet) 500 mg PO BID [facility] [place] Last Admin: 06/24/25 08:42 Dose: 500 mg Clozapine (Clozapine 100 Mg Tablet) 300 mg PO BEDTIME [facility] [place] Last Admin: 06/23/25 20:53 Dose: 300 mg Diphenhydramine HCl (Diphenhydramine Hcl 25 Mg Capsule) 50 mg PO BEDTIME PRN PRN Reason: Insomnia Docusate Sodium (Docusate Sodium 100 Mg Capsule) 100 mg PO BID [facility] [place] Last Admin: 06/24/25 08:42 Dose: 100 mg Famotidine (Famotidine 20 Mg Tablet) 20 mg PO BID [facility] [place] Last Admin: 06/24/25 05:55 Dose: 20 mg Folic Acid (Folic Acid 1 Mg Tablet) 1 mg PO DAILY [facility] [place] Last Admin: 06/24/25 08:42 Dose: 1 mg Hydroxyzine HCl (Hydroxyzine Hcl 50 Mg Tablet) 50 mg PO Q8H PRN PRN Reason: Anxiety Last Admin: 06/23/25 17:26 Dose: 50 mg Lactated Ringer's (Lr) 1,000 mls @ 50 mls/hr IVCONT .Q20H [facility] [place] Last Admin: 06/24/25 08:43 Dose: Not Given Ibuprofen (Ibuprofen 800 Mg Tablet) 800 mg PO Q8H PRN PRN Reason: moderate pain Last Admin: 06/23/25 18:53 Dose: 800 mg Lactase (Lactase Tablet) 3 tab PO TIDWM [facility] [place] Last Admin: 06/24/25 11:27 Dose: 3 tab Magnesium Hydroxide (Milk Of Magnesia 30 Ml Oral.Susp) 30 ml PO DAILY PRN PRN Reason: Constipation Magnesium Oxide (Magnesium Oxide 400 Mg Tablet) 400 mg PO BIDPC [facility] [place] Last Admin: 06/24/25 08:43 Dose: 400 mg Metformin HCl (Metformin Hcl 500 Mg Tablet) 500 mg PO DAILY [facility] [place] Last Admin: 06/24/25 08:41 Dose: 500 mg Methocarbamol (Methocarbamol 500 Mg Tablet) 500 mg PO TID PRN PRN Reason: severe pain Last Admin: 06/22/25 20:42 Dose: 500 mg Metoprolol Tartrate (Metoprolol Tartrate 50 Mg Tablet) 50 mg PO BID [facility] [place]; Protocol Last Admin: 06/24/25 05:55 Dose: 50 mg Multivitamins/Vitamin C (Multivitamin Tablet) 1 tab PO DAILY [facility] [place] Last Admin: 06/24/25 08:43 Dose: 1 tab Naloxone HCl (Naloxone Hcl 0.4 Mg/Ml Vial) 0.04 mg IVPUSH Q5M PRN PRN Reason: Excessive sedation or RR < 8 Nicotine Polacrilex (Nicotine Polacrilex 2 Mg Gum) 2 mg BUCCAL Q2H PRN PRN Reason: Nicotine Cravings Nitroglycerin (Nitroglycerin 0.4 Mg Tab.Subl) 0.4 mg SUBLINGUAL Q5MX3 PRN PRN Reason: chest pain Olanzapine (Olanzapine 5 Mg Tablet) 5 mg PO BID PRN PRN Reason: agitation Last Admin: 06/22/25 18:21 Dose: 5 mg Polyethylene Glycol (Polyethylene Glycol 3350 17 Gm Powd.Pack) 17 gm PO DAILY PRN PRN Reason: Constipation Last Admin: 06/22/25 14:56 Dose: 17 gm Quetiapine Fumarate (Quetiapine Fumarate 50 Mg Tablet) 50 mg PO BEDTIME [facility] [place] Last Admin: 06/23/25 20:53 Dose: 50 mg Sertraline HCl (Sertraline Hcl 100 Mg Tablet) 100 mg PO DAILY [facility] [place] Last Admin: 06/24/25 08:41 Dose: 100 mg Simethicone (Simethicone 80 Mg Tab.Chew) 80 mg PO QIDWMHS [facility] [place] Last Admin: 06/24/25 11:27 Dose: 80 mg Sucralfate (Sucralfate 1 Gm Tablet) 1 gm PO QIDACHS [facility] [place] Last Admin: 06/24/25 11:27 Dose: 1 gm Tamsulosin HCl (Tamsulosin Hcl 0.4 Mg Capsule) 0.8 mg PO BEDTIME [facility] [place] Last Admin: 06/23/25 20:52 Dose: 0.8 mg Trazodone HCl (Trazodone Hcl 50 Mg Tablet) 150 mg PO BEDTIME [facility] [place] Last Admin: 06/23/25 20:52 Dose: 150 mg Trazodone HCl (Trazodone Hcl 50 Mg Tablet) 50 mg PO BEDTIME PRN PRN Reason: Insomnia Venlafaxine HCl (Venlafaxine Hcl Er 37.5 Mg Cap.Er.24h) 37.5 mg PO DAILY [facility] [place] Last Admin: 06/24/25 05:55 Dose: 37.5 mg Vitamin D (Cholecalciferol (Vitamin D3) 25 Mcg Tablet) 50 mcg PO DAILY [facility] [place] Last Admin: 06/24/25 08:41 Dose: 50 mcg Allergies Allergies Allergy/AdvReac Type Severity Reaction Status Date / Time bupropion Allergy Rash Verified 06/09/25 19:07 haloperidol (From Haldol) Allergy Rash Verified 06/09/25 19:07 lactose Allergy Gastrointestinal Verified 06/09/25 19:07 Upset peanut Allergy Anaphylaxis Verified 06/09/25 19:07 ziprasidone Allergy Rash Verified 06/09/25 19:07 Assessment & Plan Assessment & Plan (1) Schizoaffective disorder, bipolar type: Status: Acute Code(s): F25.0 - Schizoaffective disorder, bipolar type (2) PTSD (post-traumatic stress disorder): Status: Acute Code(s): F43.10 - Post-traumatic stress disorder, unspecified (3) Coronary artery disease: Status: Acute Code(s): I25.10 - Atherosclerotic heart disease of [place] coronary artery without angina pectoris Plan Mr. Brink is a 59 y/o DWM with documented h/o schizophrenia, bipolar d/o, depression, PTSD, KASSIE, sleep apnea, HTN, CAD, hyponatremia, peripheral neuropathy, 3 GA's s/p CABG, unsteady gait, and type II DM who was brought to the [facility] ED due to AH and SI. He was transferred to [facility] for tx of severe depression, SI and psychotic sx. Plan: Admitted to [facility] for safety and stabilization Legal status- CV Admission medical consult ordered 5 minute safety checks due to fall risk. Uses a walker Meds- Continue current medications from retirement list for now: Clozaril 50 mg qhs Clozaril 300 mg qhs for now (grp home list says 'bid at hs' and external med rec shows 300 mg qhs) Effexor XR 75 mg qam *per external med rec, it looks like pt is cross titrating from venlafaxine to sertraline, was previously on 225 mg qd. Will continue cross titration after clarifying when the doses were last adjusted diphenhydramine 50 mg qhs prn for [place] hydroxyzine 50 mg q 8 hrs prn for anxiety sertraline 100 mg qd trazodone 100 mg qhs acetaminophen 975 mg bid ASA 81 mg qam budesonide-formoterol 2 inhalations qd Calcium-Vit D 500mg-5 mcg tabs, 2 tabs po bid docusate 100 mg bid folic acid 1 mg qam ibuprofen 800 mg q 8 hrs prn for pain lactase 9000 unit tablet tid magnesium oxide 400 mg bid metformin 500 mg qam methocarbamol 500 mg q 8 hrs for muscle pain metoprolol 50 mg bid MVI qd nitroglycerin 0.4 mg SL q 5 min prn for chest pain u pt 3 doses simethicone 80 mg 4x/day after meals and at hs sucralfate 1 g 4x/day before meals tamsulosin 0.8 mg qhs Vit B complex qam Vit D3 50 mcg qam Will consider ECT 06/11: Trial GBP 100 mg TID for anxiety and pain. 06/12: DC Gabapentin. Monitor urinary retention/incontinence. He is on Tamsulosin. Continue current management and treatment plan. 06/13: Will refer to ECT due to inadequate response to multiple psychotropic medication trials including: current regimen- clozapine 350 mg qd, sertraline 100 mg qd, venlafaxine (tapering off, was up to 225 mg qd), trazodone 100 mg qhs Prior med trials: Prozac, Cymbalta, Lamictal, Strattera, Zyprexa, Adderall ER, Invega Sustenna, VPA -Will request hospitalist consult for risk stratification for ECT -Taper venlafaxine to 37.5 mg starting tomorrow 06/14: ECT ordered for tomorrow am. NPO except for meds with sips of water after midnight. Medically cleared for ECT today by Alejandra Dangelo NP ECT risk stratification. Patient without previous problems with anesthesia, has previously undergone ECT RCRI 0 points, no further cardiac workup or treatment indicated at this time. Patient denies any past problems with anesthesia. EKG pending, no evidence of ischemic changes Based on stated PMH, HPI, and physical exam, there are no There are no obvious contraindications to the planned procedure. Patient with moderate risk due to advancing age and history of coronary artery disease. 06/15: Completed ECT #1 today (RUL) and tolerated it well. Will continue current tx plan for now, with ECT #2 scheduled for 06/17: Continue current tx plan. ECT #2 scheduled for tomorrow. NPO and ECT orders entered. 06/17: Did well w/ ECT #2. Ordered NPO for ECT #3 on Tuesday 06/19: Laying in bed most of day. Patient continues to report feeling depressed; he reports not sleeping well last night but is not clear for reason. denies SI/HI/VH. +AH telling me I'm going to . Encouraged to leave room. continue tx plan. 06/20: ECT #3 completed today. Endorses ongoing depressed mood without signif improvement. Continue current tx plan. ECT #4 scheduled for 06/22. ECT & NPO orders are entered for 06/22 06/21: Pt is agreeable w/ plan to d/c venlafaxine (seems to have started x- titration to sertraline during one of his inpt admissions). Will titrate standing dose of trazodone to 150 mg qhs. ECT #4 scheduled for tomorrow 06/22: Completed ECT #4. Now off venlafaxine. C/O constipation x 3 days. TW asked pt's nurse to give him MiraLax. Pt denies significant improvement in depression thus far. I explained that it's still early in the ECT series to expect a significant response. Medical necessity for continued inpatient psychiatric treatment: Continuation of ECT series for depression. Unable to engage in outpatient ECT since there are no ECT providing facilities near his retirement in [place]. Treatment failure with multiple psychotropic trials and previous positive reponse to ECT 06/23: Pt has noticed subtle improvement in his mood since starting ECT. Endorses some confusion and dissociative sx which could be related to ECT and/or discontinuing the venlafaxine. Will re-start venlafaxine 37.5 mg tomorrow am for more gradual taper to reduce discontinuation sx. Will d/c clozapine 25 mg am dose w/ plan to cross titrate to Seroquel, which was reportedly effective in the past for tx of depression and AH, also since pt has multiple SE from the clozapine without any noticeable benefit. Pt is agreeable w/ this tx plan 06/24: Mood gradually improving, brighter affect today. Will continue current med regimen for now and continue cross-titration over the weekend. ECT #5 done today. #6 scheduled for Mon, 06/27 Reason for continued inpatient stay Substantial Risk for: med/psych decompensation Time Spent With Patient Time: Total time managing care of this patient today ____ minutes.
[2025-06-24 13:12] LABS: Neut%MD 69.4 %; WBCANC 8.1 X10*3/uL
[2025-06-24 13:22] LABS: Creatinine Clr Calc Pharmacy 76.9; Estimated Glomerular Filt Rate > 60
--- NOTE | 2025-06-25 06:48 | PC.NURSE ---
At about 0430, Clifton was in the bathroom when he pulled the emergency alarm. Staff when into the room and into the bathroom and patient stated that he was worried that he was going to fall. Patient was helped back to his bed.
[2025-06-25 07:20] VITALS: BP 181/80; PULSE 87; RESP 14; TEMP 36.8; O2SAT 96
[2025-06-25] MEDS: Venlafaxine HCl ER 37.5 MG CAP.ER.24H PO (08:53)
[2025-06-25] MEDS: Aspirin Enteric Coated 81 MG TABLET.DR PO (08:53)
[2025-06-25] MEDS: Calcium + Vitamin D 250 MG TABLET 500 MG PO ×2 (08:54→20:42)
--- NOTE | 2025-06-25 14:32 | P.PNPSI_ITS ---
Subjective Subjective Date of Service: 06/25/25 Reason For Visit: SI Interim History: Chart reviewed, case discussed in morning report. Pt reports that he's been having more intermittent arm twitching, especially at night. States it's uncomfortable. He reports that he blacked out and fell yesterday evening before bedtime meds when he got up to go to the bathroom. He states that he controlled the fall and denies hitting his head or any injuries. There were no witnesses. Pt endorses depressed mood, racing thoughts. Denies SI, AH/VH Experienced nausea after ECT, otherwise denies any adverse effects that he can appreciate MSE: Appearance: Lying in bed in the dark. Sat up when t/w entered his room. Good eye contact. Fair grooming/hygiene Attitude: cooperative, expresses appreciation for care received Speech: Fluent and wnl in regard to volume, tone, prosody Motor activity: Occasional chomping movements. No other abnormal movements observed. No muscle rigidity Mood: as noted above Affect: appropriate, reactive, brightens up appropriately (improved) Thought process: goal directed, less perseverative Thought content: as noted above. Perception: Denies AH/VH and does not appear to respond to internal stimuli Alert/oriented in all spheres Cognition grossly intact Insight: fair Judgment: fair Diagnostics Vital Signs (24Hr): Vital Signs - 24 hr 06/24/25 20:00 06/25/25 07:20 Temperature 98.4 F 98.3 F Pulse Rate 76 87 Respiratory Rate 22 H 14 Blood Pressure 107/60 181/80 H Pulse Oximetry 98 96 Oxygen Delivery Method Room Air Room Air BMI result Body Mass Index 27.7 Labs 06/14/25 14:27 06/24/25 13:01 Labs: Laboratory Results - last 48 hr 06/24/25 13:01 Absolute Neuts (auto) 5.6 Creatinine 1.12 Estim Creat Clear Calc 76.9 Estimated GFR > 60 Imaging Radiology Impressions: ITS Impressions Chest X-Ray 06/14/25 16:43 IMPRESSION: No evidence for acute disease in the chest. Electronically signed by: Concepcion Delarosa MD 06/14/2025 04:54 PM EDT RP Medications Medications Current Medications Acetaminophen (Acetaminophen 325 Mg Tablet) 975 mg PO BID PRN PRN Reason: Pain, Moderate(Pain Scale 4-6) Last Admin: 06/24/25 15:48 Dose: 975 mg Al Hydroxide/Mg Hydroxide (Magnesium Hydrox/Alum Hydrox 30 Ml Oral.Susp) 30 ml PO Q6H PRN PRN Reason: Heartburn/Nausea Aspirin (Aspirin Enteric Coated 81 Mg Tablet.Dr) 81 mg PO DAILY [facility] Last Admin: 06/25/25 08:53 Dose: 81 mg Atorvastatin Calcium (Atorvastatin Calcium 40 Mg Tablet) 40 mg PO BEDTIME [facility] Last Admin: 06/24/25 20:04 Dose: 40 mg Budesonide (Budesonide 180 Mcg Aer.Pow.Ba) 2 puff INHALE RDAILY [facility] Last Admin: 06/25/25 08:52 Dose: 2 puff Calcium Carbonate/Cholecalciferol (Calcium + Vitamin D 250 Mg Tablet) 500 mg PO BID [facility] Last Admin: 06/25/25 08:54 Dose: 500 mg Clozapine (Clozapine 100 Mg Tablet) 300 mg PO BEDTIME [facility] Last Admin: 06/24/25 20:05 Dose: 300 mg Diphenhydramine HCl (Diphenhydramine Hcl 25 Mg Capsule) 50 mg PO BEDTIME PRN PRN Reason: Insomnia Docusate Sodium (Docusate Sodium 100 Mg Capsule) 100 mg PO BID [facility] Last Admin: 06/25/25 08:53 Dose: 100 mg Famotidine (Famotidine 20 Mg Tablet) 20 mg PO BID [facility] Last Admin: 06/25/25 08:53 Dose: 20 mg Folic Acid (Folic Acid 1 Mg Tablet) 1 mg PO DAILY [facility] Last Admin: 06/25/25 08:54 Dose: 1 mg Hydroxyzine HCl (Hydroxyzine Hcl 50 Mg Tablet) 50 mg PO Q8H PRN PRN Reason: Anxiety Last Admin: 06/25/25 11:42 Dose: 50 mg Lactated Ringer's (Lr) 1,000 mls @ 50 mls/hr IVCONT .Q20H [facility] Last Admin: 06/25/25 03:07 Dose: Not Given Ibuprofen (Ibuprofen 800 Mg Tablet) 800 mg PO Q8H PRN PRN Reason: moderate pain Last Admin: 06/24/25 15:48 Dose: 800 mg Lactase (Lactase Tablet) 3 tab PO TIDWM [facility] Last Admin: 06/25/25 11:38 Dose: 3 tab Magnesium Hydroxide (Milk Of Magnesia 30 Ml Oral.Susp) 30 ml PO DAILY PRN PRN Reason: Constipation Magnesium Oxide (Magnesium Oxide 400 Mg Tablet) 400 mg PO BIDPC [facility] Last Admin: 06/25/25 08:53 Dose: 400 mg Metformin HCl (Metformin Hcl 500 Mg Tablet) 500 mg PO DAILY [facility] Last Admin: 06/25/25 08:54 Dose: 500 mg Methocarbamol (Methocarbamol 500 Mg Tablet) 500 mg PO TID PRN PRN Reason: severe pain Last Admin: 06/24/25 20:04 Dose: 500 mg Metoprolol Tartrate (Metoprolol Tartrate 50 Mg Tablet) 50 mg PO BID [facility]; Protocol Last Admin: 06/25/25 08:53 Dose: 50 mg Multivitamins/Vitamin C (Multivitamin Tablet) 1 tab PO DAILY [facility] Last Admin: 06/25/25 08:53 Dose: 1 tab Naloxone HCl (Naloxone Hcl 0.4 Mg/Ml Vial) 0.04 mg IVPUSH Q5M PRN PRN Reason: Excessive sedation or RR < 8 Nicotine Polacrilex (Nicotine Polacrilex 2 Mg Gum) 2 mg BUCCAL Q2H PRN PRN Reason: Nicotine Cravings Nitroglycerin (Nitroglycerin 0.4 Mg Tab.Subl) 0.4 mg SUBLINGUAL Q5MX3 PRN PRN Reason: chest pain Olanzapine (Olanzapine 5 Mg Tablet) 5 mg PO BID PRN PRN Reason: agitation Last Admin: 06/22/25 18:21 Dose: 5 mg Polyethylene Glycol (Polyethylene Glycol 3350 17 Gm Powd.Pack) 17 gm PO DAILY PRN PRN Reason: Constipation Last Admin: 06/22/25 14:56 Dose: 17 gm Quetiapine Fumarate (Quetiapine Fumarate 50 Mg Tablet) 50 mg PO BEDTIME [facility] Last Admin: 06/24/25 20:06 Dose: 50 mg Sertraline HCl (Sertraline Hcl 100 Mg Tablet) 100 mg PO DAILY [facility] Last Admin: 06/25/25 09:26 Dose: 100 mg Simethicone (Simethicone 80 Mg Tab.Chew) 80 mg PO QIDWMHS [facility] Last Admin: 06/25/25 11:38 Dose: 80 mg Sucralfate (Sucralfate 1 Gm Tablet) 1 gm PO QIDACHS [facility] Last Admin: 06/25/25 11:38 Dose: 1 gm Tamsulosin HCl (Tamsulosin Hcl 0.4 Mg Capsule) 0.8 mg PO BEDTIME [facility] Last Admin: 06/24/25 20:06 Dose: 0.8 mg Trazodone HCl (Trazodone Hcl 50 Mg Tablet) 150 mg PO BEDTIME [facility] Last Admin: 06/24/25 20:07 Dose: 150 mg Trazodone HCl (Trazodone Hcl 50 Mg Tablet) 50 mg PO BEDTIME PRN PRN Reason: Insomnia Venlafaxine HCl (Venlafaxine Hcl Er 37.5 Mg Cap.Er.24h) 37.5 mg PO DAILY [facility] Last Admin: 06/25/25 08:53 Dose: 37.5 mg Vitamin D (Cholecalciferol (Vitamin D3) 25 Mcg Tablet) 50 mcg PO DAILY [facility] Last Admin: 06/25/25 08:53 Dose: 50 mcg Allergies Allergies Allergy/AdvReac Type Severity Reaction Status Date / Time bupropion Allergy Rash Verified 06/09/25 19:07 haloperidol (From Haldol) Allergy Rash Verified 06/09/25 19:07 lactose Allergy Gastrointestinal Verified 06/09/25 19:07 Upset peanut Allergy Anaphylaxis Verified 06/09/25 19:07 ziprasidone Allergy Rash Verified 06/09/25 19:07 Assessment & Plan Assessment & Plan (1) Schizoaffective disorder, bipolar type: Status: Acute Code(s): F25.0 - Schizoaffective disorder, bipolar type (2) PTSD (post-traumatic stress disorder): Status: Acute Code(s): F43.10 - Post-traumatic stress disorder, unspecified (3) Coronary artery disease: Status: Acute Code(s): I25.10 - Atherosclerotic heart disease of [place] coronary artery without angina pectoris Plan Mr. Brink is a 59 y/o DWM with documented h/o schizophrenia, bipolar d/o, depression, PTSD, KASSIE, sleep apnea, HTN, CAD, hyponatremia, peripheral neuropathy, 3 MS's s/p CABG, unsteady gait, and type II DM who was brought to the [facility] ED due to AH and SI. He was transferred to [facility] for tx of severe depression, SI and psychotic sx. Plan: Admitted to for safety and stabilization Legal status- CV Admission medical consult ordered 5 minute safety checks due to fall risk. Uses a walker Meds- Continue current medications from [facility]dc list for now: Clozaril 50 mg qhs Clozaril 300 mg qhs for now ([facility] home list says 'bid at hs' and external med rec shows 300 mg qhs) Effexor XR 75 mg qam *per external med rec, it looks like pt is cross titrating from venlafaxine to sertraline, was previously on 225 mg qd. Will continue cross titration after clarifying when the doses were last adjusted diphenhydramine 50 mg qhs prn for insomna hydroxyzine 50 mg q 8 hrs prn for anxiety sertraline 100 mg qd trazodone 100 mg qhs acetaminophen 975 mg bid ASA 81 mg qam budesonide-formoterol 2 inhalations qd Calcium-Vit D 500mg-5 mcg tabs, 2 tabs po bid docusate 100 mg bid folic acid 1 mg qam ibuprofen 800 mg q 8 hrs prn for pain lactase 9000 unit tablet tid magnesium oxide 400 mg bid metformin 500 mg qam methocarbamol 500 mg q 8 hrs for muscle pain metoprolol 50 mg bid MVI qd nitroglycerin 0.4 mg SL q 5 min prn for chest pain u pt 3 doses simethicone 80 mg 4x/day after meals and at hs sucralfate 1 g 4x/day before meals tamsulosin 0.8 mg qhs Vit B complex qam Vit D3 50 mcg qam Will consider ECT 06/11: Trial GBP 100 mg TID for anxiety and pain. 06/12: DC Gabapentin. Monitor urinary retention/incontinence. He is on Tamsulosin. Continue current management and treatment plan. 06/13: Will refer to ECT due to inadequate response to multiple psychotropic medication trials including: current regimen- clozapine 350 mg qd, sertraline 100 mg qd, venlafaxine (tapering off, was up to 225 mg qd), trazodone 100 mg qhs Prior med trials: Prozac, Cymbalta, Lamictal, Strattera, Zyprexa, Adderall ER, Invega Sustenna, VPA -Will request hospitalist consult for risk stratification for ECT -Taper venlafaxine to 37.5 mg starting tomorrow 06/14: ECT ordered for tomorrow am. NPO except for meds with sips of water after midnight. Medically cleared for ECT today by Alejandra Antolin, ORTHOTIST/PROSTHETIST ECT risk stratification. Patient without previous problems with anesthesia, has previously undergone ECT RCRI 0 points, no further cardiac workup or treatment indicated at this time. Patient denies any past problems with anesthesia. EKG pending, no evidence of ischemic changes Based on stated PMH, HPI, and physical exam, there are no There are no obvious contraindications to the planned procedure. Patient with moderate risk due to advancing age and history of coronary artery disease. 06/15: Completed ECT #1 today (RUL) and tolerated it well. Will continue current tx plan for now, with ECT #2 scheduled for 06/17: Continue current tx plan. ECT #2 scheduled for tomorrow. NPO and ECT orders entered. 06/17: Did well w/ ECT #2. Ordered NPO for ECT #3 on Tuesday 06/19: Laying in bed most of day. Patient continues to report feeling depressed; he reports not sleeping well last night but is not clear for reason. denies SI/HI/VH. +AH telling me I'm going to . Encouraged to leave room. continue tx plan. 06/20: ECT #3 completed today. Endorses ongoing depressed mood without signif improvement. Continue current tx plan. ECT #4 scheduled for 06/22. ECT & NPO orders are entered for 06/22 06/21: Pt is agreeable w/ plan to d/c venlafaxine (seems to have started x- titration to sertraline during one of his inpt admissions). Will titrate standing dose of trazodone to 150 mg qhs. ECT #4 scheduled for tomorrow 06/22: Completed ECT #4. Now off venlafaxine. C/O constipation x 3 days. TW asked pt's nurse to give him MiraLax. Pt denies significant improvement in depression thus far. I explained that it's still early in the ECT series to expect a significant response. Medical necessity for continued inpatient psychiatric treatment: Continuation of ECT series for depression. Unable to engage in outpatient ECT since there are no ECT providing facilities near his [facility] in [place]. Treatment failure with multiple psychotropic trials and previous positive reponse to ECT 06/23: Pt has noticed subtle improvement in his mood since starting ECT. Endorses some confusion and dissociative sx which could be related to ECT and/or discontinuing the venlafaxine. Will re-start venlafaxine 37.5 mg tomorrow am for more gradual taper to reduce discontinuation sx. Will d/c clozapine 25 mg am dose w/ plan to cross titrate to Seroquel, which was reportedly effective in the past for tx of depression and AH, also since pt has multiple SE from the clozapine without any noticeable benefit. Pt is agreeable w/ this tx plan 06/24: Mood gradually improving, brighter affect today. Will continue current med regimen for now and continue cross-titration over the weekend. ECT #5 done today. #6 scheduled for 06/27: Will start lorazepam 0.5 mg bid for tx of potential venlafaxine discontinuation syndrome +/- EPS. Advised pt to stand up slowly to reduce risk of falls. Patient educated on: medication risk/benefits Reason for continued inpatient stay Substantial Risk for: med/psych decompensation Time Spent With Patient Time: Total time managing care of this patient today ____ minutes.
[2025-06-25 20:00] VITALS: BP 126/75; PULSE 77; RESP 16; TEMP 36.3; O2SAT 99
[2025-06-25 20:40] VITALS: BP 126/75; PULSE 77
[2025-06-26 08:12] VITALS: BP 134/68; PULSE 100; RESP 18; TEMP 36.4; O2SAT 96
[2025-06-26] MEDS: Aspirin Enteric Coated 81 MG TABLET.DR PO (08:37)
[2025-06-26] MEDS: Calcium + Vitamin D 250 MG TABLET 500 MG PO ×2 (08:38→20:47)
[2025-06-26] MEDS: Venlafaxine HCl ER 37.5 MG CAP.ER.24H PO (08:39)
--- NOTE | 2025-06-26 08:59 | P.PNPSI_ITS ---
Subjective Subjective Date of Service: 06/26/25 Reason For Visit: SI Interim History: chart reviewed, case discussed w/ nursing staff on 5's due to walker still c/o jerky hand movements stayed in bed all day yesterday during day shift. agreed to walk hallway w/ nurse. made phone call, more visible in milieu in evening R arm pain s/p ECT slept 8 hrs Pt reports that his depression has improved somewhat. Denies SI. Denies AH Reports having the muscle spasms this am but states lorazepam has helped. Agreeable w/ continuing current med regimen for now. MSE: Appearance: Sitting at desk eating lunch. fair grooming/hygiene Attitude: cooperative Speech: Fluent and wnl in regard to volume, tone, prosody Motor activity: calm Mood: as noted above Affect: appropriate, reactive, brightens up appropriately (improved) Thought process: goal directed Thought content: as noted above. Perception: Denies AH/VH and does not appear to respond to internal stimuli Alert/oriented in all spheres Cognition grossly intact Insight: fair Judgment: fair Diagnostics Vital Signs (24Hr): Vital Signs - 24 hr 06/25/25 20:00 06/25/25 20:40 06/26/25 08:12 Temperature 97.4 F 97.6 F Pulse Rate 77 77 100 Respiratory Rate 16 18 Blood Pressure 126/75 126/75 134/68 Pulse Oximetry 99 96 Oxygen Delivery Method Room Air Room Air BMI result Body Mass Index 27.7 Labs 06/14/25 14:27 06/24/25 13:01 Labs: Laboratory Results - last 48 hr 06/24/25 13:01 Absolute Neuts (auto) 5.6 Creatinine 1.12 Estim Creat Clear Calc 76.9 Estimated GFR > 60 Imaging Radiology Impressions: ITS Impressions Chest X-Ray 06/14/25 16:43 IMPRESSION: No evidence for acute disease in the chest. Electronically signed by: Concepcion Delarosa MD 06/14/2025 04:54 PM EDT Medications Medications Current Medications Acetaminophen (Acetaminophen 325 Mg Tablet) 975 mg PO BID PRN PRN Reason: Pain, Moderate(Pain Scale 4-6) Last Admin: 06/24/25 15:48 Dose: 975 mg Al Hydroxide/Mg Hydroxide (Magnesium Hydrox/Alum Hydrox 30 Ml Oral.Susp) 30 ml PO Q6H PRN PRN Reason: Heartburn/Nausea Aspirin (Aspirin Enteric Coated 81 Mg Tablet.Dr) 81 mg PO DAILY [facility] Last Admin: 06/26/25 08:37 Dose: 81 mg Atorvastatin Calcium (Atorvastatin Calcium 40 Mg Tablet) 40 mg PO BEDTIME [facility] Last Admin: 06/25/25 20:40 Dose: 40 mg Budesonide (Budesonide 180 Mcg Aer.Pow.Ba) 2 puff INHALE RDAILY [facility] Last Admin: 06/26/25 08:37 Dose: 2 puff Calcium Carbonate/Cholecalciferol (Calcium + Vitamin D 250 Mg Tablet) 500 mg PO BID [facility] Last Admin: 06/26/25 08:38 Dose: 500 mg Clozapine (Clozapine 100 Mg Tablet) 300 mg PO BEDTIME [facility] Last Admin: 06/25/25 20:42 Dose: 300 mg Diphenhydramine HCl (Diphenhydramine Hcl 25 Mg Capsule) 50 mg PO BEDTIME PRN PRN Reason: Insomnia Docusate Sodium (Docusate Sodium 100 Mg Capsule) 100 mg PO BID [facility] Last Admin: 06/26/25 08:38 Dose: 100 mg Famotidine (Famotidine 20 Mg Tablet) 20 mg PO BID [facility] Last Admin: 06/26/25 08:39 Dose: 20 mg Folic Acid (Folic Acid 1 Mg Tablet) 1 mg PO DAILY [facility] Last Admin: 06/26/25 08:38 Dose: 1 mg Hydroxyzine HCl (Hydroxyzine Hcl 50 Mg Tablet) 50 mg PO Q8H PRN PRN Reason: Anxiety Last Admin: 06/25/25 11:42 Dose: 50 mg Ibuprofen (Ibuprofen 800 Mg Tablet) 800 mg PO Q8H PRN PRN Reason: moderate pain Last Admin: 06/26/25 08:38 Dose: 800 mg Lactase (Lactase Tablet) 3 tab PO TIDWM [facility] Last Admin: 06/26/25 08:38 Dose: 3 tab Lorazepam (Lorazepam 0.5 Mg Tablet) 0.5 mg PO BID [facility] Last Admin: 06/26/25 08:37 Dose: 0.5 mg Magnesium Hydroxide (Milk Of Magnesia 30 Ml Oral.Susp) 30 ml PO DAILY PRN PRN Reason: Constipation Magnesium Oxide ([facility]esium [facility] 400 Mg [facility]t) [facility] Admin: 06/26/25 08:38 Dose: 400 mg Metformin HCl (Metformin Hcl 500 Mg Tablet) 500 mg PO DAILY [facility] Last Admin: 06/26/25 08:39 Dose: 500 mg Methocarbamol (Methocarbamol 500 Mg Tablet) 500 mg PO TID PRN PRN Reason: severe pain Last Admin: 06/25/25 19:13 Dose: 500 mg Metoprolol Tartrate (Metoprolol Tartrate 50 Mg Tablet) 50 mg PO BID [facility]; Protocol Last Admin: 06/26/25 08:39 Dose: 50 mg Multivitamins/Vitamin C (Multivitamin Tablet) 1 tab PO DAILY [facility] Last Admin: 06/26/25 08:38 Dose: 1 tab Naloxone HCl (Naloxone Hcl 0.4 Mg/Ml Vial) 0.04 mg IVPUSH Q5M PRN PRN Reason: Excessive sedation or RR < 8 Nicotine Polacrilex (Nicotine Polacrilex 2 Mg Gum) 2 mg BUCCAL Q2H PRN PRN Reason: Nicotine Cravings Nitroglycerin (Nitroglycerin 0.4 Mg Tab.Subl) 0.4 mg SUBLINGUAL Q5MX3 PRN PRN Reason: chest pain Polyethylene Glycol (Polyethylene Glycol 3350 17 Gm Powd.Pack) 17 gm PO DAILY PRN PRN Reason: Constipation Last Admin: 06/22/25 14:56 Dose: 17 gm Quetiapine Fumarate (Quetiapine Fumarate 50 Mg Tablet) 50 mg PO BEDTIME [facility] Last Admin: 06/25/25 20:41 Dose: 50 mg Sertraline HCl (Sertraline Hcl 100 Mg Tablet) 100 mg PO DAILY [facility] Last Admin: 06/26/25 08:39 Dose: 100 mg Simethicone (Simethicone 80 Mg Tab.Chew) 80 mg PO QIDWMHS [facility] Last Admin: 06/26/25 08:37 Dose: 80 mg Sucralfate (Sucralfate 1 Gm Tablet) 1 gm PO QIDACHS [facility] Last Admin: 06/26/25 08:39 Dose: 1 gm Tamsulosin HCl (Tamsulosin Hcl 0.4 Mg Capsule) 0.8 mg PO BEDTIME [facility] Last Admin: 06/25/25 20:39 Dose: 0.8 mg Trazodone HCl (Trazodone Hcl 50 Mg Tablet) 150 mg PO BEDTIME [facility] Last Admin: 06/25/25 20:38 Dose: 150 mg Trazodone HCl (Trazodone Hcl 50 Mg Tablet) 50 mg PO BEDTIME PRN PRN Reason: Insomnia Venlafaxine HCl (Venlafaxine Hcl Er 37.5 Mg Cap.Er.24h) 37.5 mg PO DAILY [facility] Last Admin: 06/26/25 08:39 Dose: 37.5 mg Vitamin D (Cholecalciferol (Vitamin D3) 25 Mcg Tablet) 50 mcg PO DAILY [facility] Last Admin: 06/26/25 08:38 Dose: 50 mcg Allergies Allergies Allergy/AdvReac Type Severity Reaction Status Date / Time bupropion Allergy Rash Verified 06/09/25 19:07 haloperidol (From Haldol) Allergy Rash Verified 06/09/25 19:07 lactose Allergy Gastrointestinal Verified 06/09/25 19:07 Upset peanut Allergy Anaphylaxis Verified 06/09/25 19:07 ziprasidone Allergy Rash Verified 06/09/25 19:07 Assessment & Plan Assessment & Plan (1) Schizoaffective disorder, bipolar type: Status: Acute Code(s): F25.0 - Schizoaffective disorder, bipolar type (2) PTSD (post-traumatic stress disorder): Status: Acute Code(s): F43.10 - Post-traumatic stress disorder, unspecified (3) Coronary artery disease: Status: Acute Code(s): I25.10 - Atherosclerotic heart disease of koi coronary artery without angina pectoris Plan Mr. Brink is a 59 y/o DWM with documented h/o schizophrenia, bipolar d/o, depression, PTSD, KASSIE, sleep apnea, HTN, CAD, hyponatremia, peripheral neuropathy, 3 CO's s/p CABG, unsteady gait, and type II DM who was brought to the [facility] ED due to AH and SI. He was transferred to [facility] for tx of severe depression, SI and psychotic sx. Plan: Admitted to for safety and stabilization Legal status- CV Admission medical consult ordered 5 minute safety checks due to fall risk. Uses a walker Meds- Continue current medications from snf list for now: Clozaril 50 mg qhs Clozaril 300 mg qhs for now (grp home list says 'bid at hs' and external med rec shows 300 mg qhs) Effexor XR 75 mg qam *per external med rec, it looks like pt is cross titrating from venlafaxine to sertraline, was previously on 225 mg qd. Will continue cross titration after clarifying when the doses were last adjusted diphenhydramine 50 mg qhs prn for insomna hydroxyzine 50 mg q 8 hrs prn for anxiety sertraline 100 mg qd trazodone 100 mg qhs acetaminophen 975 mg bid ASA 81 mg qam budesonide-formoterol 2 inhalations qd Calcium-Vit D 500mg-5 mcg tabs, 2 tabs po bid docusate 100 mg bid folic acid 1 mg qam ibuprofen 800 mg q 8 hrs prn for pain lactase 9000 unit tablet tid magnesium oxide 400 mg bid metformin 500 mg qam methocarbamol 500 mg q 8 hrs for muscle pain metoprolol 50 mg bid MVI qd nitroglycerin 0.4 mg SL q 5 min prn for chest pain u pt 3 doses simethicone 80 mg 4x/day after meals and at hs sucralfate 1 g 4x/day before meals tamsulosin 0.8 mg qhs Vit B complex qam Vit D3 50 mcg qam Will consider ECT 06/11: Trial GBP 100 mg TID for anxiety and pain. 06/12: TYE Gabapentin. Monitor urinary retention/incontinence. He is on Tamsulosin. Continue current management and treatment plan. 06/13: Will refer to ECT due to inadequate response to multiple psychotropic medication trials including: current regimen- clozapine 350 mg qd, sertraline 100 mg qd, venlafaxine (tapering off, was up to 225 mg qd), trazodone 100 mg qhs Prior med trials: Prozac, Cymbalta, Lamictal, Strattera, Zyprexa, Adderall ER, Invega Sustenna, VPA -Will request hospitalist consult for risk stratification for ECT -Taper venlafaxine to 37.5 mg starting tomorrow 06/14: ECT ordered for tomorrow am. NPO except for meds with sips of water after midnight. Medically cleared for ECT today by Alejandra Dangelo NP ECT risk stratification. Patient without previous problems with anesthesia, has previously undergone ECT RCRI 0 points, no further cardiac workup or treatment indicated at this time. Patient denies any past problems with anesthesia. EKG pending, no evidence of ischemic changes Based on stated PMH, HPI, and physical exam, there are no There are no obvious contraindications to the planned procedure. Patient with moderate risk due to advancing age and history of coronary artery disease. 06/15: Completed ECT #1 today (RUL) and tolerated it well. Will continue current tx plan for now, with ECT #2 scheduled for 06/17: Continue current tx plan. ECT #2 scheduled for tomorrow. NPO and ECT orders entered. 06/17: Did well w/ ECT #2. Ordered NPO for ECT #3 on Tuesday 06/19: Laying in bed most of day. Patient continues to report feeling depressed; he reports not sleeping well last night but is not clear for reason. denies SI/HI/VH. +AH telling me I'm going to . Encouraged to leave room. continue tx plan. 06/20: ECT #3 completed today. Endorses ongoing depressed mood without signif improvement. Continue current tx plan. ECT #4 scheduled for Fri, 06/22. ECT & NPO orders are entered for 06/22 06/21: Pt is agreeable w/ plan to d/c venlafaxine (seems to have started x- titration to sertraline during one of his inpt admissions). Will titrate standing dose of trazodone to 150 mg qhs. ECT #4 scheduled for tomorrow 06/22: Completed ECT #4. Now off venlafaxine. C/O constipation x 3 days. TW asked pt's nurse to give him MiraLax. Pt denies significant improvement in depression thus far. I explained that it's still early in the ECT series to expect a significant response. Medical necessity for continued inpatient psychiatric treatment: Continuation of ECT series for depression. Unable to engage in outpatient ECT since there are no ECT providing facilities near his snf in [place]. Treatment failure with multiple psychotropic trials and previous positive reponse to ECT 06/23: Pt has noticed subtle improvement in his mood since starting ECT. Endorses some confusion and dissociative sx which could be related to ECT and/or discontinuing the venlafaxine. Will re-start venlafaxine 37.5 mg tomorrow am for more gradual taper to reduce discontinuation sx. Will d/c clozapine 25 mg am dose w/ plan to cross titrate to Seroquel, which was reportedly effective in the past for tx of depression and AH, also since pt has multiple SE from the clozapine without any noticeable benefit. Pt is agreeable w/ this tx plan 06/24: Mood gradually improving, brighter affect today. Will continue current med regimen for now and continue cross-titration over the weekend. ECT #5 done today. #6 scheduled for Fri, 06/27 06/25: Will start lorazepam 0.5 mg bid for tx of potential venlafaxine discontinuation syndrome +/- EPS. Advised pt to stand up slowly to reduce risk of falls. 06/26: Continue current tx plan. ECT #6 scheduled for tomorrow. NPO orders in Reason for continued inpatient stay Substantial Risk for: med/psych decompensation Time Spent With Patient Time: Total time managing care of this patient today ____ minutes.
[2025-06-26 20:00] VITALS: BP 120/58; PULSE 75; RESP 16; TEMP 36.8; O2SAT 98
--- NOTE | 2025-06-27 | ECG_ITS ---
Test Reason : EKG CHANGES Blood Pressure : */* mmHG Vent. Rate : 87 BPM Atrial Rate : 87 BPM P-R Int : 138 ms QRS Dur : 100 ms QT Int : 396 ms P-R-T Axes : 69 -15 57 degrees QTcB Int : 476 ms Normal sinus rhythm Nonspecific T wave changes When compared with ECG of 27-Jun-2025 09:02, No significant change was found Referred By: Alejandra Dangelo Electronically Signed By: Bandar Lin
--- NOTE | 2025-06-27 | ECG_ITS ---
Test Reason : CHEST PAIN, SOB, DIZZY Blood Pressure : */* mmHG Vent. Rate : 79 BPM Atrial Rate : 79 BPM P-R Int : 146 ms QRS Dur : 100 ms QT Int : 400 ms P-R-T Axes : 73 -11 41 degrees QTcB Int : 458 ms Normal sinus rhythm Normal ECG When compared with ECG of 14-Jun-2025 16:28, T wave inversion now evident in Anterior leads Referred By: Roberto Carlos De Leon Electronically Signed By: Bandar Lin
[2025-06-27 05:55] VITALS: BP 150/71; PULSE 72; RESP 14; TEMP 36.7; O2SAT 96
[2025-06-27] MEDS: Venlafaxine HCl ER 37.5 MG CAP.ER.24H PO (05:57)
[2025-06-27 06:20] VITALS: BP 126/62; PULSE 76; RESP 16; O2SAT 98
--- NOTE | 2025-06-27 06:24 | PM.EVENT ---
Event Note Date of Service: 06/27/25 Event Note: 6:10 am - Contacted to notify patient sustained a fall while he was in the bathroom and hit his head. The fall was unwitnessed. Vital signs at the time of my evaluation: BP 128/68, RR 88. Head exam: No bumps, wounds or hematomas. Pupils equally round reactive to light. Cardiopulmonary exam is normal. Patient stated that he felt dizzy. He also complained of shortness on breath, chest pain and palpitations. We will check stat labs, ECG and head CT scan. Time Spent With Patient Time: Total time managing care of this patient today ____ minutes.
[2025-06-27 06:42] VITALS: BP 126/62; PULSE 76; RESP 14; RESP 16; TEMP 36.7; O2SAT 98
--- NOTE | 2025-06-27 08:56 | HO.PM.IMPN ---
Subjective Subjective Date of Service: 06/27/25 Interval History: Patient is seen in follow up. He reported dizziness overnight, his EKG with a T-wave inversion now evident in anterior leads. His troponins were negative, his labs were otherwise unremarkable. On exam he denies any chest pain of breath, did report that he felt dizzy last night but this has resolved. Reports that he has had dizziness for several months. Followed by outpatient Cardiology. No tachycardia, blood pressure 128/62. No hypoxia, no fever. Denies any chest pain No pain in his jaw, arms. No diaphoresis. Denies any back, neck, jaw or stomach pain. Denies any shortness of breath or cough. Denies lightheadedness dizziness, no loss of consciousness. His head CT was negative for acute fractures or intracranial hemorrhage. Head CT does demonstrate arthrosclerotic disease. Review of Systems Patient has no acute medical complaints at this time All other systems are reviewed and are negative Physical Exam Exam: Exam: Alert and oriented X3, calm and cooperative. Answers questions. In no apparent distress Neuro: CN II-X11 intact, no deficits, visual acuity intact EYES: PERRLA, EOM intact ENT: Hearing intact, MMM Cardiac: S1 S2 RRR, No ectopy Pulmonary: lungs clear to auscultation, No increased WOB. Abdominal: BS active in all 4 quadrants, no guarding or tenderness MSK: Strength 5/5 upper and lower extremities : Deferred Extremities: No edema in lower extremities Psych: Mood stable, Quiet and cooperative. Skin: Warm and dry, Intact Vital Signs: Vital Signs: Last Vital Signs Temp 98.1 F 06/27/25 06:42 Pulse 76 06/27/25 06:42 Resp 14 06/27/25 06:42 BP 126/62 06/27/25 06:42 Pulse Ox 98 06/27/25 06:42 O2 Del Method Room Air 06/27/25 06:42 O2 Flow Rate 2 06/24/25 08:03 BMI result Body Mass Index 27.7 Objective Data Active Medications Acetaminophen (Acetaminophen 325 Mg Tablet) 975 mg PO BID PRN PRN Reason: Pain, Moderate(Pain Scale 4-6) Last Admin: 06/26/25 11:27 Dose: 975 mg Documented By: TATO Al Hydroxide/Mg Hydroxide (Magnesium Hydrox/Alum Hydrox 30 Ml Oral.Susp) 30 ml PO Q6H PRN PRN Reason: Heartburn/Nausea Aspirin (Aspirin Enteric Coated 81 Mg Tablet.Dr) 81 mg PO DAILY [facility] Last Admin: 06/26/25 08:37 Dose: 81 mg Documented By: TATO Atorvastatin Calcium (Atorvastatin Calcium 40 Mg Tablet) 40 mg PO BEDTIME [facility] Last Admin: 06/26/25 20:48 Dose: 40 mg Documented By: MILKA Budesonide (Budesonide 180 Mcg Aer.Pow.Ba) 2 puff INHALE RDAILY [facility] Last Admin: 06/26/25 08:37 Dose: 2 puff Documented By: TATO Calcium Carbonate/Cholecalciferol (Calcium + Vitamin D 250 Mg Tablet) 500 mg PO BID [facility] Last Admin: 06/26/25 20:47 Dose: 500 mg Documented By: MILKA Clozapine (Clozapine 100 Mg Tablet) 300 mg PO BEDTIME [facility] Last Admin: 06/26/25 20:48 Dose: 300 mg Documented By: MILKA Diphenhydramine HCl (Diphenhydramine Hcl 25 Mg Capsule) 50 mg PO BEDTIME PRN PRN Reason: Insomnia Docusate Sodium (Docusate Sodium 100 Mg Capsule) 100 mg PO BID [facility] Last Admin: 06/26/25 21:11 Dose: Not Given Documented By: MILKA Non-Admin Reason: Patient Refused Famotidine (Famotidine 20 Mg Tablet) 20 mg PO BID [facility] Last Admin: 06/27/25 05:57 Dose: 20 mg Documented By: MILKA Folic Acid (Folic Acid 1 Mg Tablet) 1 mg PO DAILY [facility] Last Admin: 06/26/25 08:38 Dose: 1 mg Documented By: TATO Hydroxyzine HCl (Hydroxyzine Hcl 50 Mg Tablet) 50 mg PO Q8H PRN PRN Reason: Anxiety Last Admin: 06/25/25 11:42 Dose: 50 mg Documented By: TATO Ibuprofen (Ibuprofen 800 Mg Tablet) 800 mg PO Q8H PRN PRN Reason: moderate pain Last Admin: 06/26/25 18:43 Dose: 800 mg Documented By: TATO Lactase (Lactase Tablet) 3 tab PO TIDWM [facility] Last Admin: 06/26/25 17:20 Dose: 3 tab Documented By: TATO Lorazepam (Lorazepam 0.5 Mg Tablet) 0.5 mg PO BID [facility] Last Admin: 06/26/25 20:50 Dose: 0.5 mg Documented By: MILKA Magnesium Hydroxide (Milk Of Magnesia 30 Ml Oral.Susp) 30 ml PO DAILY PRN PRN Reason: Constipation Magnesium Oxide (Magnesium Oxide 400 Mg Tablet) 400 mg PO BIDPC [facility] Last Admin: 06/26/25 17:20 Dose: 400 mg Documented By: TATO Metformin HCl (Metformin Hcl 500 Mg Tablet) 500 mg PO DAILY [facility] Last Admin: 06/26/25 08:39 Dose: 500 mg Documented By: TATO Methocarbamol (Methocarbamol 500 Mg Tablet) 500 mg PO TID PRN PRN Reason: severe pain Last Admin: 06/26/25 20:50 Dose: 500 mg Documented By: MILKA Metoprolol Tartrate (Metoprolol Tartrate 50 Mg Tablet) 50 mg PO BID [facility]; Protocol Last Admin: 06/27/25 05:56 Dose: 50 mg Documented By: MILKA Multivitamins/Vitamin C (Multivitamin Tablet) 1 tab PO DAILY [facility] Last Admin: 06/26/25 08:38 Dose: 1 tab Documented By: TATO Naloxone HCl (Naloxone Hcl 0.4 Mg/Ml Vial) 0.04 mg IVPUSH Q5M PRN PRN Reason: Excessive sedation or RR < 8 Nicotine Polacrilex (Nicotine Polacrilex 2 Mg Gum) 2 mg BUCCAL Q2H PRN PRN Reason: Nicotine Cravings Nitroglycerin (Nitroglycerin 0.4 Mg Tab.Subl) 0.4 mg SUBLINGUAL Q5MX3 PRN PRN Reason: chest pain Polyethylene Glycol (Polyethylene Glycol 3350 17 Gm Powd.Pack) 17 gm PO DAILY PRN PRN Reason: Constipation Last Admin: 06/22/25 14:56 Dose: 17 gm Documented By: LYNN Quetiapine Fumarate (Quetiapine Fumarate 50 Mg Tablet) 50 mg PO BEDTIME [facility] Last Admin: 06/26/25 20:50 Dose: 50 mg Documented By: MILKA Sertraline HCl (Sertraline Hcl 100 Mg Tablet) 100 mg PO DAILY [facility] Last Admin: 06/26/25 08:39 Dose: 100 mg Documented By: TATO Simethicone (Simethicone 80 Mg Tab.Chew) 80 mg PO QIDWMHS [facility] Last Admin: 06/26/25 20:49 Dose: 80 mg Documented By: MILKA Sucralfate (Sucralfate 1 Gm Tablet) 1 gm PO QIDACHS [facility] Last Admin: 06/26/25 20:50 Dose: 1 gm Documented By: MILKA Tamsulosin HCl (Tamsulosin Hcl 0.4 Mg Capsule) 0.8 mg PO BEDTIME [facility] Last Admin: 06/26/25 20:49 Dose: 0.8 mg Documented By: MILKA Trazodone HCl (Trazodone Hcl 50 Mg Tablet) 150 mg PO BEDTIME [facility] Last Admin: 06/26/25 20:49 Dose: 150 mg Documented By: MILKA Trazodone HCl (Trazodone Hcl 50 Mg Tablet) 50 mg PO BEDTIME PRN PRN Reason: Insomnia Venlafaxine HCl (Venlafaxine Hcl Er 37.5 Mg Cap.Er.24h) 37.5 mg PO DAILY [facility] Last Admin: 06/27/25 05:57 Dose: 37.5 mg Documented By: MILKA Vitamin D (Cholecalciferol (Vitamin D3) 25 Mcg Tablet) 50 mcg PO DAILY [facility] Last Admin: 06/26/25 08:38 Dose: 50 mcg Documented By: TATO Labs 06/27/25 11:19 06/27/25 11:19 Assessment and Plan (1) Coronary artery disease: Status: Acute Plan 59-year-old male with medical history listed below presented to the ED with increased depression and suicidal ideation. Now admitted to inpatient psych for mood stabilization. Bipolar disorder/Psychosis/Anxiety/Depression/schizoaffective disorder/history of substance use disorder Treatment per psychiatric team Dizziness Troponins flat, EKG with T-wave changes, will repeat Slight anemia, improved from admission hemoglobin 13.7/hematocrit 40.9 Encouraged to rise slowly from a lying or sitting position BPH Followed by urology outpatient Continue Flomax Type 2 diabetes Diet controlled Recent A1c 5.6 CAD/HLD/HTN/patient with history of a stroke/OR 2014, status post CABG Continue aspirin, atorvastatin, and metoprolol Follows cardiology outpatient History of sleep apnea Denies use of CPAP Chronic pain disorder/peripheral neuropathy/right foot fracture Continue with duloxetine Ambulating with a walker Follows Orthopedics outpatient Right common iliac artery aneurysm Followed by vascular yearly Monitor for any evidence of PAD including claudication or ulcers Continue statin and aspirin Thank you for allowing me to participate in the care of this patient. Will follow with you, please notify medical provider with any changes in condition or concerns. Quality Stroke Does the patient have a stroke diagnosis?: No VTE Prior VTE?: No VTE Risk Level:: Medical - low VTE Device Contraindication: Treatment Not Indicated VTE Drug Contraindication: N/A - Med Ordered
[2025-06-27 11:39] LABS: MANUAL DIFF FLAG NO
[2025-06-27 11:43] LABS: Hematocrit 40.9 % (42.0-52.0); Hemoglobin 13.7 g/dl (14.0-18.0); Imm Gran Abs Auto 0.03 X10*3/uL (0.00-0.03); Imm Gran Pct Auto 0.5 % (0.0-0.4); Lymphocytes Absolute Auto 1.5 X10*3/uL (1.2-4.9); Mean Corpuscular HGB Conc 33.5 g/dl (31.0-36.0); Mean Corpuscular Hemoglobin 28.5 pg (27.0-33.0); Mean Corpuscular Volume 85.2 fL (80.0-98.0); NRBC Abs Auto 0.000 X10*3/uL (0.0-0.012); NRBC Pct Auto 0.0 /100WBC (0.0-0.2); Platelet Count 248 X10*3/uL (160-400); Red Blood Count 4.80 X10*6/uL (4.60-5.80); White Blood Count 6.6 X10*3/uL (4.8-10.8)
[2025-06-27] MEDS: Aspirin Enteric Coated 81 MG TABLET.DR PO (11:43)
[2025-06-27] MEDS: Calcium + Vitamin D 250 MG TABLET 500 MG PO ×2 (11:44→21:59)
[2025-06-27 11:58] LABS: Anion Gap 13 (12-20); Blood Urea Nitrogen 15 mg/dL (9-16); Calcium 9.6 mg/dL (8.4-10.2); Carbon Dioxide 28 mmol/L (22-29); Chloride 105 mmol/L (96-108); Creatinine Clr Calc Pharmacy 86.2; Estimated Glomerular Filt Rate > 60; Magnesium 2.3 mg/dL (1.6-2.6); Potassium 4.1 mmol/L (3.3-5.1); Sodium 142 mmol/L (135-145)
[2025-06-27 12:11] LABS: Troponin-I High Sensitivity < 2.7 ng/L (<3.5-35.0)
--- NOTE | 2025-06-27 18:43 | HO.PSYCHPN ---
Subjective Subjective Date of Service: 06/27/25 Reason For Visit: SI Interim History: chart reviewed, case discussed w/ team Pt had an unwitnessed fall this morning after getting up to go to the bathroom. He reports that he was using his walker but blacked out and hit the back of his head w/o controlling the fall. He endorsed a POWER in the back of his head. There was no sign of trauma on exam. ECT was cx'd CT head was done -no acute intranial hemorrhage or gross hematoma -did show Calcified plaques in the V4 segments of the vertebral arteries and cavernous supracavernous segments both ICAs as well as the M1 segment. EKG was unremarkable Pt reports that he [facility] like this as well. He endorses R knee weakness after the fall Does report that his depression has improved overall. Medication Compliance: Yes Diagnostics Vital Signs (24Hr): Vital Signs - 24 hr 06/26/25 20:00 06/27/25 05:55 06/27/25 06:20 Temperature 98.2 F 98.1 F Pulse Rate 75 72 76 Respiratory Rate 16 14 16 Blood Pressure 120/58 L 150/71 H 126/62 Pulse Oximetry 98 96 98 Oxygen Delivery Method Room Air Room Air Room Air 06/27/25 06:42 06/27/25 06:42 Temperature 98.1 F 98.1 F Pulse Rate 76 76 Respiratory Rate 16 14 Blood Pressure 126/62 126/62 Pulse Oximetry 98 98 Oxygen Delivery Method Room Air BMI result Body Mass Index 27.7 Labs 06/27/25 11:19 06/27/25 11:19 Labs: Laboratory Results - last 48 hr 06/27/25 06/27/25 11:19 11:19 WBC 6.6 RBC 4.80 Hgb 13.7 L Hct 40.9 L MCV 85.2 MCH 28.5 MCHC 33.5 RDW 13.4 Plt Count 248 MPV 10.1 Immature Gran % (Auto) 0.5 H Neut % (Auto) 64.6 Lymph % (Auto) 23.1 Roberts % (Auto) 7.3 Eos % (Auto) 3.4 Baso % (Auto) 1.1 Lymph # (Auto) 1.5 Roberts # (Auto) 0.5 Eos # (Auto) 0.2 Baso # (Auto) 0.1 Abs Immat Gran (auto) 0.03 Absolute Neuts (auto) 4.2 Absolute Nucleated RBC 0.000 Nucleated RBC % (auto) 0.0 Sodium 142 Potassium 4.1 Chloride 105 Carbon Dioxide 28 Anion Gap 13 BUN 15 Creatinine 1.00 Estim Creat Clear Calc 86.2 Estimated GFR > 60 Random Glucose 122 H Calcium 9.6 Magnesium 2.3 Troponin I High Sens Cancelled < 2.7 Imaging Radiology Impressions: ITS Impressions Chest X-Ray 06/14/25 16:43 IMPRESSION: No evidence for acute disease in the chest. Electronically signed by: Concepcion Delarosa MD 06/14/2025 04:54 PM EDT RP Head CT 06/27/25 10:09 IMPRESSION: No acute fracture, bony calvarium. No acute intracranial hemorrhage. Atherosclerosis disease, intracranial. Electronically signed by: Pino Ponce MD 06/27/2025 10:44 AM EST RP Medications Medications Current Medications Acetaminophen (Acetaminophen 325 Mg Tablet) 975 mg PO BID PRN PRN Reason: Pain, Moderate(Pain Scale 4-6) Last Admin: 06/26/25 11:27 Dose: 975 mg Al Hydroxide/Mg Hydroxide (Magnesium Hydrox/Alum Hydrox 30 Ml Oral.Susp) 30 ml PO Q6H PRN PRN Reason: Heartburn/Nausea Aspirin (Aspirin Enteric Coated 81 Mg Tablet.Dr) 81 mg PO DAILY [facility] Last Admin: 06/27/25 11:43 Dose: 81 mg Atorvastatin Calcium (Atorvastatin Calcium 40 Mg Tablet) 40 mg PO BEDTIME [facility] Last Admin: 06/26/25 20:48 Dose: 40 mg Budesonide (Budesonide 180 Mcg Aer.Pow.Ba) 2 puff INHALE RDAILY [facility] Last Admin: 06/27/25 11:28 Dose: 2 puff Calcium Carbonate/Cholecalciferol (Calcium + Vitamin D 250 Mg Tablet) 500 mg PO BID [facility] Last Admin: 06/27/25 11:44 Dose: 500 mg Clozapine (Clozapine 100 Mg Tablet) 300 mg PO BEDTIME [facility] Last Admin: 06/26/25 20:48 Dose: 300 mg Diphenhydramine HCl (Diphenhydramine Hcl 25 Mg Capsule) 50 mg PO BEDTIME PRN PRN Reason: Insomnia Docusate Sodium (Docusate Sodium 100 Mg Capsule) 100 mg PO BID [facility] Last Admin: 06/27/25 11:43 Dose: 100 mg Famotidine (Famotidine 20 Mg Tablet) 20 mg PO BID [facility] Last Admin: 06/27/25 05:57 Dose: 20 mg Folic Acid (Folic Acid 1 Mg Tablet) 1 mg PO DAILY [facility] Last Admin: 06/27/25 11:44 Dose: 1 mg Hydroxyzine HCl (Hydroxyzine Hcl 50 Mg Tablet) 50 mg PO Q8H PRN PRN Reason: Anxiety Last Admin: 06/25/25 11:42 Dose: 50 mg Ibuprofen (Ibuprofen 800 Mg Tablet) 800 mg PO Q8H PRN PRN Reason: moderate pain Last Admin: 06/26/25 18:43 Dose: 800 mg Lactase (Lactase Tablet) 3 tab PO TIDWM [facility] Last Admin: 06/27/25 17:02 Dose: 3 tab Lorazepam (Lorazepam 0.5 Mg Tablet) 0.5 mg PO BID [facility] Last Admin: 06/27/25 11:43 Dose: 0.5 mg Magnesium Hydroxide (Milk Of Magnesia 30 Ml Oral.Susp) 30 ml PO DAILY PRN PRN Reason: Constipation Magnesium Oxide ([facility] 400 Mg [facility]t) [facility] Last Admin: 06/27/25 17:01 Dose: 400 mg Metformin HCl (Metformin Hcl 500 Mg Tablet) 500 mg PO DAILY [facility] Last Admin: 06/27/25 11:44 Dose: 500 mg Methocarbamol (Methocarbamol 500 Mg Tablet) 500 mg PO TID PRN PRN Reason: severe pain Last Admin: 06/27/25 16:36 Dose: 500 mg Metoprolol Tartrate (Metoprolol Tartrate 50 Mg Tablet) 50 mg PO BID [facility]; Protocol Last Admin: 06/27/25 05:56 Dose: 50 mg Multivitamins/Vitamin C (Multivitamin Tablet) 1 tab PO DAILY [facility] Last Admin: 06/27/25 11:43 Dose: 1 tab Naloxone HCl (Naloxone Hcl 0.4 Mg/Ml Vial) 0.04 mg IVPUSH Q5M PRN PRN Reason: Excessive sedation or RR < 8 Nicotine Polacrilex (Nicotine Polacrilex 2 Mg Gum) 2 mg BUCCAL Q2H PRN PRN Reason: Nicotine Cravings Nitroglycerin (Nitroglycerin 0.4 Mg Tab.Subl) 0.4 mg SUBLINGUAL Q5MX3 PRN PRN Reason: chest pain Polyethylene Glycol (Polyethylene Glycol 3350 17 Gm Powd.Pack) 17 gm PO DAILY PRN PRN Reason: Constipation Last Admin: 06/22/25 14:56 Dose: 17 gm Quetiapine Fumarate (Quetiapine Fumarate 50 Mg Tablet) 50 mg PO BEDTIME [facility] Last Admin: 06/26/25 20:50 Dose: 50 mg Sertraline HCl (Sertraline Hcl 100 Mg Tablet) 100 mg PO DAILY [facility] Last Admin: 06/27/25 11:42 Dose: 100 mg Simethicone (Simethicone 80 Mg Tab.Chew) 80 mg PO QIDWMHS [facility] Last Admin: 06/27/25 17:01 Dose: 80 mg Sucralfate (Sucralfate 1 Gm Tablet) 1 gm PO QIDACHS [facility] Last Admin: 06/27/25 16:37 Dose: 1 gm Tamsulosin HCl (Tamsulosin Hcl 0.4 Mg Capsule) 0.8 mg PO BEDTIME [facility] Last Admin: 06/26/25 20:49 Dose: 0.8 mg Trazodone HCl (Trazodone Hcl 50 Mg Tablet) 150 mg PO BEDTIME [facility] Last Admin: 06/26/25 20:49 Dose: 150 mg Trazodone HCl (Trazodone Hcl 50 Mg Tablet) 50 mg PO BEDTIME PRN PRN Reason: Insomnia Venlafaxine HCl (Venlafaxine Hcl Er 37.5 Mg Cap.Er.24h) 37.5 mg PO DAILY [facility] Last Admin: 06/27/25 05:57 Dose: 37.5 mg Vitamin D (Cholecalciferol (Vitamin D3) 25 Mcg Tablet) 50 mcg PO DAILY [facility] Last Admin: 06/27/25 11:43 Dose: 50 mcg Allergies Allergies Allergy/AdvReac Type Severity Reaction Status Date / Time bupropion Allergy Rash Verified 06/09/25 19:07 haloperidol (From Haldol) Allergy Rash Verified 06/09/25 19:07 lactose Allergy Gastrointestinal Verified 06/09/25 19:07 Upset peanut Allergy Anaphylaxis Verified 06/09/25 19:07 ziprasidone Allergy Rash Verified 06/09/25 19:07 Assessment & Plan Assessment & Plan (1) Coronary artery disease: Status: Acute Code(s): I25.10 - Atherosclerotic heart disease of [place] coronary artery without angina pectoris (2) Schizoaffective disorder, bipolar type: Status: Acute Code(s): F25.0 - Schizoaffective disorder, bipolar type (3) PTSD (post-traumatic stress disorder): Status: Acute Code(s): F43.10 - Post-traumatic stress disorder, unspecified Plan Mr. Brink is a 59 y/o DWM with documented h/o schizophrenia, bipolar d/o, depression, PTSD, KASSIE, sleep apnea, HTN, CAD, hyponatremia, peripheral neuropathy, 3 AK's s/p CABG, unsteady gait, and type II DM who was brought to the [facility] ED due to AH and SI. He was transferred to [facility] for tx of severe depression, SI and psychotic sx. Plan: Admitted to for safety and stabilization Legal status- CV Admission medical consult ordered 5 minute safety checks due to fall risk. Uses a walker Meds- Continue current medications from pen[facility]iary list for now: Clozaril 50 mg qhs Clozaril 300 mg qhs for now (grp home list says 'bid at hs' and external med rec shows 300 mg qhs) Effexor XR 75 mg qam *per external med rec, it looks like pt is cross titrating from venlafaxine to sertraline, was previously on 225 mg qd. Will continue cross titration after clarifying when the doses were last adjusted diphenhydramine 50 mg qhs prn for insomna hydroxyzine 50 mg q 8 hrs prn for anxiety sertraline 100 mg qd trazodone 100 mg qhs acetaminophen 975 mg bid ASA 81 mg qam budesonide-formoterol 2 inhalations qd Calcium-Vit D 500mg-5 mcg tabs, 2 tabs po bid docusate 100 mg bid folic acid 1 mg qam ibuprofen 800 mg q 8 hrs prn for pain lactase 9000 unit tablet tid magnesium oxide 400 mg bid metformin 500 mg qam methocarbamol 500 mg q 8 hrs for muscle pain metoprolol 50 mg bid MVI qd nitroglycerin 0.4 mg SL q 5 min prn for chest pain u pt 3 doses simethicone 80 mg 4x/day after meals and at hs sucralfate 1 g 4x/day before meals tamsulosin 0.8 mg qhs Vit B complex qam Vit D3 50 mcg qam Will consider ECT 06/11: Trial GBP 100 mg TID for anxiety and pain. 06/12: DC Gabapentin. Monitor urinary retention/incontinence. He is on Tamsulosin. Continue current management and treatment plan. 06/13: Will refer to ECT due to inadequate response to multiple psychotropic medication trials including: current regimen- clozapine 350 mg qd, sertraline 100 mg qd, venlafaxine (tapering off, was up to 225 mg qd), trazodone 100 mg qhs Prior med trials: Prozac, Cymbalta, Lamictal, Strattera, Zyprexa, Adderall ER, Invega Sustenna, VPA -Will request hospitalist consult for risk stratification for ECT -Taper venlafaxine to 37.5 mg starting tomorrow 06/14: ECT ordered for tomorrow am. NPO except for meds with sips of water after midnight. Medically cleared for ECT today by Alejandra Dangelo NP ECT risk stratification. Patient without previous problems with anesthesia, has previously undergone ECT RCRI 0 points, no further cardiac workup or treatment indicated at this time. Patient denies any past problems with anesthesia. EKG pending, no evidence of ischemic changes Based on stated PMH, HPI, and physical exam, there are no There are no obvious contraindications to the planned procedure. Patient with moderate risk due to advancing age and history of coronary artery disease. 06/15: Completed ECT #1 today (RUL) and tolerated it well. Will continue current tx plan for now, with ECT #2 scheduled for 06/17: Continue current tx plan. ECT #2 scheduled for tomorrow. NPO and ECT orders entered. 06/17: Did well w/ ECT #2. Ordered NPO for ECT #3 on Tuesday 06/19: Laying in bed most of day. Patient continues to report feeling depressed; he reports not sleeping well last night but is not clear for reason. denies SI/HI/VH. +AH telling me I'm going to . Encouraged to leave room. continue tx plan. 06/20: ECT #3 completed today. Endorses ongoing depressed mood without signif improvement. Continue current tx plan. ECT #4 scheduled for Fri, 06/22. ECT & NPO orders are entered for 06/22 06/21: Pt is agreeable w/ plan to d/c venlafaxine (seems to have started x-titration to sertraline during one of his inpt admissions). Will titrate standing dose of trazodone to 150 mg qhs. ECT #4 scheduled for tomorrow 06/22: Completed ECT #4. Now off venlafaxine. C/O constipation x 3 days. TW asked pt's nurse to give him MiraLax. Pt denies significant improvement in depression thus far. I explained that it's still early in the ECT series to expect a significant response. Medical necessity for continued inpatient psychiatric treatment: Continuation of ECT series for depression. Unable to engage in outpatient ECT since there are no ECT providing facilities near his [facility] in [place]. Treatment failure with multiple psychotropic trials and previous positive reponse to ECT 06/23: Pt has noticed subtle improvement in his mood since starting ECT. Endorses some confusion and dissociative sx which could be related to ECT and/or discontinuing the venlafaxine. Will re-start venlafaxine 37.5 mg tomorrow am for more gradual taper to reduce discontinuation sx. Will d/c clozapine 25 mg am dose w/ plan to cross titrate to Seroquel, which was reportedly effective in the past for tx of depression and AH, also since pt has multiple SE from the clozapine without any noticeable benefit. Pt is agreeable w/ this tx plan 06/24: Mood gradually improving, brighter affect today. Will continue current med regimen for now and continue cross-titration over the weekend. ECT #5 done today. #6 scheduled for Fri, 06/27 06/25: Will start lorazepam 0.5 mg bid for tx of potential venlafaxine discontinuation syndrome +/- EPS. Advised pt to stand up slowly to reduce risk of falls. 06/26: Continue current tx plan. ECT #6 scheduled for tomorrow. NPO orders in 06/27: ECT cx'd after pt had an unwitnessed fall and reported hitting the back of his head. CT head showed no acute changes and EKG was unremarkable. Pt reported blacking out prior to falling, which has reportedly happened [facility] his [facility]iary also. He doesn't think any of the recent med changes contributed to the fall. As a precaution, will hold the Seroquel tonight since it was recently added. TW advised pt to sit up on his bed for a few minutes before standing in the morning and then stand up slowly and pt expressed an understanding and agreed. Patient educated on: medication risk/benefits and medical condition Informed Consent: understands Reason for continued inpatient stay Substantial Risk for: med/psych decompensation Time Spent With Patient Time: Total time managing care of this patient today ____ minutes.
[2025-06-27 20:00] VITALS: BP 107/81; PULSE 103; RESP 16; TEMP 37.1; O2SAT 98
[2025-06-27 21:49] VITALS: BP 120/63; PULSE 110; RESP 15; O2SAT 98
[2025-06-28 08:58] VITALS: BP 126/86; PULSE 107; RESP 16; TEMP 36.2; O2SAT 98
[2025-06-28] MEDS: Aspirin Enteric Coated 81 MG TABLET.DR PO (09:05)
[2025-06-28] MEDS: Venlafaxine HCl ER 37.5 MG CAP.ER.24H PO (09:06)
[2025-06-28] MEDS: Calcium + Vitamin D 250 MG TABLET 500 MG PO ×2 (09:07→20:36)
--- NOTE | 2025-06-28 13:38 | HO.PM.IMPN ---
Subjective Subjective Date of Service: 06/28/25 Interval History: Patient is seen status post fall. He reports that he went to use the toilet in the middle of the night, fell and hit his head on the toilet. His CT was negative for any acute fracture, no acute intracranial hemorrhage notable presence of arthrosclerotic disease. EKG with normal sinus rhythm. Patient is reporting right knee pain. No bumps wounds or hematomas noted on his body. Slight tenderness to the back of his head. Patient reports that he has some pain in his right knee, swelling noted to superior aspect of knee, no bruising or redness noted. Lab work was within normal limits, negative troponin. On exam he feels well. Neurologically intact. Review of Systems Denies any shortness of breath, chest pain, headaches, dysuria, abdominal pain or discomfort, nausea, vomiting or diarrhea. Denies fever or chills. Physical Exam Exam: Exam: Alert and oriented X3, calm and cooperative. Answers questions. Neuro: CN II-X11 intact, no deficits, visual acuity intact EYES: PERRLA, EOM intact ENT: Hearing intact, MMM Cardiac: S1 S2 RRR, No ectopy Pulmonary: lungs clear to auscultation, No increased WOB. Abdominal: BS active in all 4 quadrants, no guarding or tenderness MSK: Strength 5/5 upper and lower extremities : Deferred Extremities: No edema in lower extremities. Slight swelling to posterior knee, no pain with palpation, full range of motion. No bruising or redness noted Psych: Mood stable, Quiet and cooperative. Skin: Warm and dry, Intact Vital Signs: Vital Signs: Last Vital Signs Temp 97.2 F 06/28/25 08:58 Pulse 107 H 06/28/25 08:58 Resp 16 06/28/25 08:58 BP 126/86 06/28/25 08:58 Pulse Ox 98 06/28/25 08:58 O2 Del Method Room Air 06/28/25 08:58 O2 Flow Rate 2 06/24/25 08:03 BMI result Body Mass Index 27.7 Objective Data Active Medications Acetaminophen (Acetaminophen 325 Mg Tablet) 975 mg PO BID PRN PRN Reason: Pain, Moderate(Pain Scale 4-6) Last Admin: 06/27/25 21:56 Dose: 975 mg Documented By: HO.CORIE Al Hydroxide/Mg Hydroxide (Magnesium Hydrox/Alum Hydrox 30 Ml Oral.Susp) 30 ml PO Q6H PRN PRN Reason: Heartburn/Nausea Aspirin (Aspirin Enteric Coated 81 Mg Tablet.) 81 mg PO DAILY [facility] Last Admin: 06/28/25 09:05 Dose: 81 mg Documented By: TIMOTEO Atorvastatin Calcium (Atorvastatin Calcium 40 Mg Tablet) 40 mg PO BEDTIME [facility] Last Admin: 06/27/25 21:57 Dose: 40 mg Documented By: EBONIE Budesonide (Budesonide 180 Mcg Aer.Pow.Ba) 2 puff INHALE RDAILY [facility] Last Admin: 06/28/25 09:09 Dose: Not Given Documented By: TIMOTEO Non-Admin Reason: Patient Refused Calcium Carbonate/Cholecalciferol (Calcium + Vitamin D 250 Mg Tablet) 500 mg PO BID [facility] Last Admin: 06/28/25 09:07 Dose: 500 mg Documented By: TIMOTEO Clozapine (Clozapine 100 Mg Tablet) 300 mg PO BEDTIME [facility] Last Admin: 06/27/25 21:58 Dose: 300 mg Documented By: EBONIE Diphenhydramine HCl (Diphenhydramine Hcl 25 Mg Capsule) 50 mg PO BEDTIME PRN PRN Reason: Insomnia Docusate Sodium (Docusate Sodium 100 Mg Capsule) 100 mg PO BID [facility] Last Admin: 06/28/25 09:06 Dose: 100 mg Documented By: TIMOTEO Famotidine (Famotidine 20 Mg Tablet) 20 mg PO BID [facility] Last Admin: 06/28/25 09:06 Dose: 20 mg Documented By: TIMOTEO Folic Acid (Folic Acid 1 Mg Tablet) 1 mg PO DAILY [facility] Last Admin: 06/28/25 09:04 Dose: 1 mg Documented By: TIMOTEO Hydroxyzine HCl (Hydroxyzine Hcl 50 Mg Tablet) 50 mg PO Q8H PRN PRN Reason: Anxiety Last Admin: 06/25/25 11:42 Dose: 50 mg Documented By: TATO Ibuprofen (Ibuprofen 800 Mg Tablet) 800 mg PO Q8H PRN PRN Reason: moderate pain Last Admin: 06/26/25 18:43 Dose: 800 mg Documented By: ATTO Lactase (Lactase Tablet) 3 tab PO TIDWM [facility] Last Admin: 06/28/25 11:58 Dose: 3 tab Documented By: TIMOTEO Lorazepam (Lorazepam 0.5 Mg Tablet) 0.5 mg PO BID [facility] Last Admin: 06/28/25 09:03 Dose: 0.5 mg Documented By: TIOMTEO Magnesium Hydroxide (Milk Of Magnesia 30 Ml Oral.Susp) 30 ml PO DAILY PRN PRN Reason: Constipation Magnesium Oxide (Magnesium Oxide 400 Mg Tablet) 400 mg PO BIDPC [facility] Last Admin: 06/28/25 09:03 Dose: 400 mg Documented By: TIMOTEO Metformin HCl (Metformin Hcl 500 Mg Tablet) 500 mg PO DAILY [facility] Last Admin: 06/28/25 09:05 Dose: 500 mg Documented By: TIMOTEO Methocarbamol (Methocarbamol 500 Mg Tablet) 500 mg PO TID PRN PRN Reason: severe pain Last Admin: 06/27/25 16:36 Dose: 500 mg Documented By: KHOI Metoprolol Tartrate (Metoprolol Tartrate 50 Mg Tablet) 50 mg PO BID [facility]; Protocol Last Admin: 06/28/25 09:05 Dose: 50 mg Documented By: TIMOTEO Multivitamins/Vitamin C (Multivitamin Tablet) 1 tab PO DAILY [facility] Last Admin: 06/28/25 09:07 Dose: 1 tab Documented By: TIMOTEO Naloxone HCl (Naloxone Hcl 0.4 Mg/Ml Vial) 0.04 mg IVPUSH Q5M PRN PRN Reason: Excessive sedation or RR < 8 Nicotine Polacrilex (Nicotine Polacrilex 2 Mg Gum) 2 mg BUCCAL Q2H PRN PRN Reason: Nicotine Cravings Nitroglycerin (Nitroglycerin 0.4 Mg Tab.Subl) 0.4 mg SUBLINGUAL Q5MX3 PRN PRN Reason: chest pain Polyethylene Glycol (Polyethylene Glycol 3350 17 Gm Powd.Pack) 17 gm PO DAILY PRN PRN Reason: Constipation Last Admin: 06/22/25 14:56 Dose: 17 gm Documented By: LYNN Sertraline HCl (Sertraline Hcl 100 Mg Tablet) 100 mg PO DAILY [facility] Last Admin: 06/28/25 09:04 Dose: 100 mg Documented By: TIMOTEO Simethicone (Simethicone 80 Mg Tab.Chew) 80 mg PO QIDWMHS [facility] Last Admin: 06/28/25 11:59 Dose: 80 mg Documented By: TIMOTEO Sucralfate (Sucralfate 1 Gm Tablet) 1 gm PO QIDACHS [facility] Last Admin: 06/28/25 11:58 Dose: 1 gm Documented By: TIMOTEO Tamsulosin HCl (Tamsulosin Hcl 0.4 Mg Capsule) 0.8 mg PO BEDTIME [facility] Last Admin: 06/27/25 21:58 Dose: 0.8 mg Documented By: EBONIE Trazodone HCl (Trazodone Hcl 50 Mg Tablet) 150 mg PO BEDTIME [facility] Last Admin: 06/27/25 21:59 Dose: 150 mg Documented By: EBONIE Trazodone HCl (Trazodone Hcl 50 Mg Tablet) 50 mg PO BEDTIME PRN PRN Reason: Insomnia Venlafaxine HCl (Venlafaxine Hcl Er 37.5 Mg Cap.Er.24h) 37.5 mg PO DAILY [facility] Last Admin: 06/28/25 09:06 Dose: 37.5 mg Documented By: TIMOTEO Vitamin D (Cholecalciferol (Vitamin D3) 25 Mcg Tablet) 50 mcg PO DAILY [facility] Last Admin: 06/28/25 09:03 Dose: 50 mcg Documented By: TIMOTEO Labs 06/27/25 11:19 06/27/25 11:19 Labs: Laboratory Results - last 24 hr 06/27/25 11:19 Troponin I High Sens Cancelled Assessment and Plan (1) Coronary artery disease: Status: Acute (2) Right knee pain: Status: Acute Plan 59-year-old male with medical history listed below presented to the ED with increased depression and suicidal ideation. Now admitted to inpatient psych for mood stabilization. Bipolar disorder/Psychosis/Anxiety/Depression/schizoaffective disorder/history of substance use disorder Treatment per psychiatric team Patient okay to resume ECT treatments Fall with head strike CT negative for any abnormality Labs are stable Dizziness Troponins flat, EKG WNL, no change from baseline Slight anemia, improved from admission hemoglobin 13.7/hematocrit 40.9 Encouraged to rise slowly from a lying or sitting position Orthostatic BP Q 8 hours for 24 hours BPH Followed by urology outpatient Continue Flomax Type 2 diabetes Diet controlled Recent A1c 5.6 CAD/HLD/HTN/patient with history of a stroke/[place] 2014, status post CABG Continue aspirin, atorvastatin, and metoprolol Follows cardiology outpatient Pressures are stable History of sleep apnea Denies use of CPAP Chronic pain disorder/peripheral neuropathy/right foot fracture Continue with duloxetine Ambulating with a walker Follows Orthopedics outpatient Right common iliac artery aneurysm Followed by vascular yearly Monitor for any evidence of PAD including claudication or ulcers Continue statin and aspirin Thank you for allowing me to participate in the care of this patient. Will follow with you, please notify medical provider with any changes in condition or concerns. Quality Stroke Does the patient have a stroke diagnosis?: No VTE Prior VTE?: No VTE Risk Level:: Medical - low VTE Device Contraindication: Treatment Not Indicated VTE Drug Contraindication: N/A - Med Ordered
--- NOTE | 2025-06-28 18:09 | P.PNPSI_ITS ---
Subjective Subjective Date of Service: 06/28/25 Reason For Visit: SI Interim History: Chart reviewed, case discussed w/ team Pt is feeling better physically today. Still felt dizzy in am but took his time getting out of bed. Denies POWER, vision changes, nausea, confusion. Seen by hospitalist today- medically cleared to resume ECT Mood is somewhat depressed. Denies SI Slept 8 hrs last night More visible in milieu Good appetite Medication Compliance: Yes Mental Status Exam Mental Status Exam Narrative: Appearance: Casually dressed. grooming is fair. good eye contact Attitude:Cooperative Speech: Fluent and wnl in regard to volume, tone, prosody Motor activity: Calm, no tremors or dyskinesias Mood: as noted above Affect: appropriate, reactive, smiles/laughs at times Thought process: goal directed and without evidence of formal thought disorder Thought content: as noted above. Perception: does not appear to respond to internal stimuli Alert/oriented in all spheres Cognition grossly intact Insight: intact Judgment: intact Diagnostics Vital Signs (24Hr): Vital Signs - 24 hr 06/27/25 20:00 06/27/25 21:49 06/28/25 08:58 Temperature 98.7 F 97.2 F Pulse Rate 103 H 110 H 107 H Respiratory Rate 16 15 16 Blood Pressure 107/81 120/63 126/86 Pulse Oximetry 98 98 98 Oxygen Delivery Method Room Air Room Air Room Air BMI result Body Mass Index 27.7 Labs 06/27/25 11:19 06/27/25 11:19 Labs: Laboratory Results - last 48 hr 06/27/25 06/27/25 11:19 11:19 WBC 6.6 RBC 4.80 Hgb 13.7 L Hct 40.9 L MCV 85.2 MCH 28.5 MCHC 33.5 RDW 13.4 Plt Count 248 MPV 10.1 Immature Gran % (Auto) 0.5 H Neut % (Auto) 64.6 Lymph % (Auto) 23.1 [place] % (Auto) 7.3 Eos % (Auto) 3.4 Baso % (Auto) 1.1 Lymph # (Auto) 1.5 [place] # (Auto) 0.5 Eos # (Auto) 0.2 Baso # (Auto) 0.1 Abs Immat Gran (auto) 0.03 Absolute Neuts (auto) 4.2 Absolute Nucleated RBC 0.000 Nucleated RBC % (auto) 0.0 Sodium 142 Potassium 4.1 Chloride 105 Carbon Dioxide 28 Anion Gap 13 BUN 15 Creatinine 1.00 Estim Creat Clear Calc 86.2 Estimated GFR > 60 Random Glucose 122 H Calcium 9.6 Magnesium 2.3 Troponin I High Sens Cancelled < 2.7 Imaging Radiology Impressions: ITS Impressions Chest X-Ray 06/14/25 16:43 IMPRESSION: No evidence for acute disease in the chest. Electronically signed by: Concepcion Delarosa MD 06/14/2025 04:54 PM EDT RP Head CT 06/27/25 10:09 IMPRESSION: No acute fracture, bony calvarium. No acute intracranial hemorrhage. Atherosclerosis disease, intracranial. Electronically signed by: Pino Ponce MD 06/27/2025 10:44 AM EST RP Medications Medications Current Medications Acetaminophen (Acetaminophen 325 Mg Tablet) 975 mg PO BID PRN PRN Reason: Pain, Moderate(Pain Scale 4-6) Last Admin: 06/28/25 16:05 Dose: 975 mg Al Hydroxide/Mg Hydroxide (Magnesium Hydrox/Alum Hydrox 30 Ml Oral.Susp) 30 ml PO Q6H PRN PRN Reason: Heartburn/Nausea Aspirin (Aspirin Enteric Coated 81 Mg Tablet.Dr) 81 mg PO DAILY [facility] Last Admin: 06/28/25 09:05 Dose: 81 mg Atorvastatin Calcium (Atorvastatin Calcium 40 Mg Tablet) 40 mg PO BEDTIME [facility] Last Admin: 06/27/25 21:57 Dose: 40 mg Budesonide (Budesonide 180 Mcg Aer.Pow.Ba) 2 puff INHALE RDAILY [facility] Last Admin: 06/28/25 09:09 Dose: Not Given Calcium Carbonate/Cholecalciferol (Calcium + Vitamin D 250 Mg Tablet) 500 mg PO BID [facility] Last Admin: 06/28/25 09:07 Dose: 500 mg Clozapine (Clozapine 100 Mg Tablet) 300 mg PO BEDTIME [facility] Last Admin: 06/27/25 21:58 Dose: 300 mg Diphenhydramine HCl (Diphenhydramine Hcl 25 Mg Capsule) 50 mg PO BEDTIME PRN PRN Reason: Insomnia Docusate Sodium (Docusate Sodium 100 Mg Capsule) 100 mg PO BID [facility] Last Admin: 06/28/25 09:06 Dose: 100 mg Famotidine (Famotidine 20 Mg Tablet) 20 mg PO BID [facility] Last Admin: 06/28/25 09:06 Dose: 20 mg Folic Acid (Folic Acid 1 Mg Tablet) 1 mg PO DAILY [facility] Last Admin: 06/28/25 09:04 Dose: 1 mg Hydroxyzine HCl (Hydroxyzine Hcl 50 Mg Tablet) 50 mg PO Q8H PRN PRN Reason: Anxiety Last Admin: 06/25/25 11:42 Dose: 50 mg Ibuprofen (Ibuprofen 800 Mg Tablet) 800 mg PO Q8H PRN PRN Reason: moderate pain Last Admin: 06/26/25 18:43 Dose: 800 mg Lactase (Lactase Tablet) 3 tab PO TIDWM [facility] Last Admin: 06/28/25 17:16 Dose: 3 tab Lorazepam (Lorazepam 0.5 Mg Tablet) 0.5 mg PO BID [facility] Last Admin: 06/28/25 09:03 Dose: 0.5 mg Magnesium Hydroxide (Milk Of Magnesia 30 Ml Oral.Susp) 30 ml PO DAILY PRN PRN Reason: Constipation Magnesium Oxide (Magnesium Oxide 400 Mg Tablet) [facility] Last Admin: 06/28/25 17:17 Dose: 400 mg Metformin HCl (Metformin Hcl 500 Mg Tablet) 500 mg PO DAILY [facility] Last Admin: 06/28/25 09:05 Dose: 500 mg Methocarbamol (Methocarbamol 500 Mg Tablet) 500 mg PO TID PRN PRN Reason: severe pain Last Admin: 06/27/25 16:36 Dose: 500 mg Metoprolol Tartrate (Metoprolol Tartrate 50 Mg Tablet) 50 mg PO BID [facility]; Protocol Last Admin: 06/28/25 09:05 Dose: 50 mg Multivitamins/Vitamin C (Multivitamin Tablet) 1 tab PO DAILY [facility] Last Admin: 06/28/25 09:07 Dose: 1 tab Naloxone HCl (Naloxone Hcl 0.4 Mg/Ml Vial) 0.04 mg IVPUSH Q5M PRN PRN Reason: Excessive sedation or RR < 8 Nicotine Polacrilex (Nicotine Polacrilex 2 Mg Gum) 2 mg BUCCAL Q2H PRN PRN Reason: Nicotine Cravings Nitroglycerin (Nitroglycerin 0.4 Mg Tab.Subl) 0.4 mg SUBLINGUAL Q5MX3 PRN PRN Reason: chest pain Polyethylene Glycol (Polyethylene Glycol 3350 17 Gm Powd.Pack) 17 gm PO DAILY PRN PRN Reason: Constipation Last Admin: 06/22/25 14:56 Dose: 17 gm Sertraline HCl (Sertraline Hcl 100 Mg Tablet) 100 mg PO DAILY [facility] Last Admin: 06/28/25 09:04 Dose: 100 mg Simethicone (Simethicone 80 Mg Tab.Chew) 80 mg PO QIDWMHS [facility] Last Admin: 06/28/25 17:17 Dose: 80 mg Sucralfate (Sucralfate 1 Gm Tablet) 1 gm PO QIDACHS [facility] Last Admin: 06/28/25 17:16 Dose: 1 gm Tamsulosin HCl (Tamsulosin Hcl 0.4 Mg Capsule) 0.8 mg PO BEDTIME [facility] Last Admin: 06/27/25 21:58 Dose: 0.8 mg Trazodone HCl (Trazodone Hcl 50 Mg Tablet) 150 mg PO BEDTIME [facility] Last Admin: 06/27/25 21:59 Dose: 150 mg Trazodone HCl (Trazodone Hcl 50 Mg Tablet) 50 mg PO BEDTIME PRN PRN Reason: Insomnia Venlafaxine HCl (Venlafaxine Hcl Er 37.5 Mg Cap.Er.24h) 37.5 mg PO DAILY [facility] Last Admin: 06/28/25 09:06 Dose: 37.5 mg Vitamin D (Cholecalciferol (Vitamin D3) 25 Mcg Tablet) 50 mcg PO DAILY [facility] Last Admin: 06/28/25 09:03 Dose: 50 mcg Allergies Allergies Allergy/AdvReac Type Severity Reaction Status Date / Time bupropion Allergy Rash Verified 06/09/25 19:07 haloperidol (From Haldol) Allergy Rash Verified 06/09/25 19:07 lactose Allergy Gastrointestinal Verified 06/09/25 19:07 Upset peanut Allergy Anaphylaxis Verified 06/09/25 19:07 ziprasidone Allergy Rash Verified 06/09/25 19:07 Assessment & Plan Assessment & Plan (1) Coronary artery disease: Status: Acute Code(s): I25.10 - Atherosclerotic heart disease of [place] coronary artery without angina pectoris (2) Right knee pain: Status: Acute Code(s): M25.561 - Pain in right knee Plan Mr. Brink is a 59 y/o DWM with documented h/o schizophrenia, bipolar d/o, depression, PTSD, KASSIE, sleep apnea, HTN, CAD, hyponatremia, peripheral neuropathy, 3 KS's s/p CABG, unsteady gait, and type II DM who was brought to the [facility] ED due to AH and SI. He was transferred to [facility] for tx of severe depression, SI and psychotic sx. Plan: Admitted to for safety and stabilization Legal status- CV Admission medical consult ordered 5 minute safety checks due to fall risk. Uses a walker Meds- Continue current medications from intermediate list for now: Clozaril 50 mg qhs Clozaril 300 mg qhs for now (grp home list says 'bid at hs' and external med rec shows 300 mg qhs) Effexor XR 75 mg qam *per external med rec, it looks like pt is cross titrating from venlafaxine to sertraline, was previously on 225 mg qd. Will continue cross titration after clarifying when the doses were last adjusted diphenhydramine 50 mg qhs prn for insomna hydroxyzine 50 mg q 8 hrs prn for anxiety sertraline 100 mg qd trazodone 100 mg qhs acetaminophen 975 mg bid ASA 81 mg qam budesonide-formoterol 2 inhalations qd Calcium-Vit D 500mg-5 mcg tabs, 2 tabs po bid docusate 100 mg bid folic acid 1 mg qam ibuprofen 800 mg q 8 hrs prn for pain lactase 9000 unit tablet tid magnesium oxide 400 mg bid metformin 500 mg qam methocarbamol 500 mg q 8 hrs for muscle pain metoprolol 50 mg bid MVI qd nitroglycerin 0.4 mg SL q 5 min prn for chest pain u pt 3 doses simethicone 80 mg 4x/day after meals and at hs sucralfate 1 g 4x/day before meals tamsulosin 0.8 mg qhs Vit B complex qam Vit D3 50 mcg qam Will consider ECT 06/11: Trial GBP 100 mg TID for anxiety and pain. 06/12: TYE Gabapentin. Monitor urinary retention/incontinence. He is on Tamsulosin. Continue current management and treatment plan. 06/13: Will refer to ECT due to inadequate response to multiple psychotropic medication trials including: current regimen- clozapine 350 mg qd, sertraline 100 mg qd, venlafaxine (tapering off, was up to 225 mg qd), trazodone 100 mg qhs Prior med trials: Prozac, Cymbalta, Lamictal, Strattera, Zyprexa, Adderall ER, Invega Sustenna, VPA -Will request hospitalist consult for risk stratification for ECT -Taper venlafaxine to 37.5 mg starting tomorrow 06/14: ECT ordered for tomorrow am. NPO except for meds with sips of water after midnight. Medically cleared for ECT today by Alejandra Dangelo NP ECT risk stratification. Patient without previous problems with anesthesia, has previously undergone ECT RCRI 0 points, no further cardiac workup or treatment indicated at this time. Patient denies any past problems with anesthesia. EKG pending, no evidence of ischemic changes Based on stated PMH, HPI, and physical exam, there are no There are no obvious contraindications to the planned procedure. Patient with moderate risk due to advancing age and history of coronary artery disease. 06/15: Completed ECT #1 today (RUL) and tolerated it well. Will continue current tx plan for now, with ECT #2 scheduled for 06/17: Continue current tx plan. ECT #2 scheduled for tomorrow. NPO and ECT orders entered. 06/17: Did well w/ ECT #2. Ordered NPO for ECT #3 on Tuesday 06/19: Laying in bed most of day. Patient continues to report feeling depressed; he reports not sleeping well last night but is not clear for reason. denies SI/HI/VH. +AH telling me I'm going to . Encouraged to leave room. continue tx plan. 06/20: ECT #3 completed today. Endorses ongoing depressed mood without signif improvement. Continue current tx plan. ECT #4 scheduled for 06/22. ECT & NPO orders are entered for 06/22 06/21: Pt is agreeable w/ plan to d/c venlafaxine (seems to have started x- titration to sertraline during one of his inpt admissions). Will titrate standing dose of trazodone to 150 mg qhs. ECT #4 scheduled for tomorrow 06/22: Completed ECT #4. Now off venlafaxine. C/O constipation x 3 days. TW asked pt's nurse to give him MiraLax. Pt denies significant improvement in depression thus far. I explained that it's still early in the ECT series to expect a significant response. Medical necessity for continued inpatient psychiatric treatment: Continuation of ECT series for depression. Unable to engage in outpatient ECT since there are no ECT providing facilities near his intermediate in [place]. Treatment failure with multiple psychotropic trials and previous positive reponse to ECT 06/23: Pt has noticed subtle improvement in his mood since starting ECT. Endorses some confusion and dissociative sx which could be related to ECT and/or discontinuing the venlafaxine. Will re-start venlafaxine 37.5 mg tomorrow am for more gradual taper to reduce discontinuation sx. Will d/c clozapine 25 mg am dose w/ plan to cross titrate to Seroquel, which was reportedly effective in the past for tx of depression and AH, also since pt has multiple SE from the clozapine without any noticeable benefit. Pt is agreeable w/ this tx plan 06/24: Mood gradually improving, brighter affect today. Will continue current med regimen for now and continue cross-titration over the weekend. ECT #5 done today. #6 scheduled for 06/27: Will start lorazepam 0.5 mg bid for tx of potential venlafaxine discontinuation syndrome +/- EPS. Advised pt to stand up slowly to reduce risk of falls. 06/26: Continue current tx plan. ECT #6 scheduled for tomorrow. NPO orders in 06/27: ECT cx'd after pt had an unwitnessed fall and reported hitting the back of his head. CT head showed no acute changes and EKG was unremarkable. Pt reported blacking out prior to falling, which has reportedly happened at his intermediate also. He doesn't think any of the recent med changes contributed to the fall. As a precaution, will hold the Seroquel tonight since it was recently added. TW advised pt to sit up on his bed for a few minutes before standing in the morning and then stand up slowly and pt expressed an understanding and agreed. 06/28: Medically cleared by hospitalist to resume ECT. Input much appreciated. NPO orders in, ECT #6 scheduled for tomorrow Orthostatics ordered q 8 hrs x 24 hrs by hospitalist Patient educated on: medication risk/benefits and medical condition Informed Consent: understands Reason for continued inpatient stay Substantial Risk for: med/psych decompensation Time Spent With Patient Time: Total time managing care of this patient today ____ minutes.
[2025-06-28 20:00] VITALS: BP 131/76; PULSE 85; RESP 16; TEMP 36.4; O2SAT 98
[2025-06-28 20:05] VITALS: BP 126/74; PULSE 85
[2025-06-29] VITALS (14 sets, daily range): BP systolic 107–166; BP diastolic 51–87; PULSE 74–112; RESP 16–20; TEMP 36.2–36.4; O2SAT 93–99
--- NOTE | 2025-06-29 06:06 | PC.NURSE ---
ortho's attempted pre ECT. unable to obtain standing BP as patient reported ''feeling too tired'' patient was exhibiting grand tremulous movements causing his knees to buckle and then sitting back down on the bed.
--- NOTE | 2025-06-29 06:52 | P.CONAN_ITS ---
[facility] Active Problems Active Problems: All Active Problems Right knee pain (Acute) PTSD (post-traumatic stress disorder) (Acute) Schizoaffective disorder, bipolar type (Acute) Coronary artery disease (Acute) Past Medical History Functional capacity: independent ambulation Family History Family history of problems with anesthesia: No Surgical History History of Problems with Anesthesia: No Social History Social History Household Members: Other Household Members Other:: snf residents Housing: Other Housing Other:: snf Do you presently have visiting nurse or other home services: Yes ([employer]) Comment: 5 Patient Tobacco Use Status: Former Tobacco user Tobacco use type: Cigarette Cigarettes Per Day: 3 Years Smoked: 43 Smoked in Last 30 Days: Yes e-Cigarette/Vaping Use: Never Used Patient Interested in Nicotine Replacement: No Patient Given Instructions on How to Stop Smoking: Yes Date Education Initiated: 06/09/25 Second Hand Smoke Exposure: No Currently Displaying Signs/Symptoms of Drug Intoxication Withdrawal: No Have you been hit, kicked, punched, or otherwise hurt by someone within the past year? If so, by whom?: No Do you feel safe in your current relationship?: No Current Relationship Is there a partner from a previous relationship who is making you feel unsafe now?: No Are you made to feel afraid or neglected: No Advance Directives: No Advance Directives Information Provided: No Advance Directives on File: No Do you have thoughts of harming others: None Do you have a plan to hurt others: No Plan Recently lost weight without trying: No How much weight loss: Not applicable Eating poorly because of decreased appetite: No Nutrition screen score: 0 Nutrition Risks: No Nutritional Risk service: No Sexual orientation: Straight/Heterosexual Meds Allergies Allergy/AdvReac Type Severity Reaction Status Date / Time bupropion Allergy Rash Verified 06/09/25 19:07 haloperidol (From Haldol) Allergy Rash Verified 06/09/25 19:07 lactose Allergy Gastrointestinal Verified 06/09/25 19:07 Upset peanut Allergy Anaphylaxis Verified 06/09/25 19:07 ziprasidone Allergy Rash Verified 06/09/25 19:07 Active Medications: Current Medications Acetaminophen (Acetaminophen 325 Mg Tablet) 975 mg PO BID PRN PRN Reason: Pain, Moderate(Pain Scale 4-6) Last Admin: 06/28/25 16:05 Dose: 975 mg Al Hydroxide/Mg Hydroxide (Magnesium Hydrox/Alum Hydrox 30 Ml Oral.Susp) 30 ml PO Q6H PRN PRN Reason: Heartburn/Nausea Aspirin (Aspirin Enteric Coated 81 Mg Tablet.Dr) 81 mg PO DAILY [facility] Last Admin: 06/28/25 09:05 Dose: 81 mg Atorvastatin Calcium (Atorvastatin Calcium 40 Mg Tablet) 40 mg PO BEDTIME [facility] Last Admin: 06/28/25 20:37 Dose: 40 mg Budesonide (Budesonide 180 Mcg Aer.Pow.Ba) 2 puff INHALE RDAILY [facility] Last Admin: 06/28/25 09:09 Dose: Not Given Calcium Carbonate/Cholecalciferol (Calcium + Vitamin D 250 Mg Tablet) 500 mg PO BID [facility] Last Admin: 06/28/25 20:36 Dose: 500 mg Clozapine (Clozapine 100 Mg Tablet) 300 mg PO BEDTIME [facility] Last Admin: 06/28/25 20:36 Dose: 300 mg Diphenhydramine HCl (Diphenhydramine Hcl 25 Mg Capsule) 50 mg PO BEDTIME PRN PRN Reason: Insomnia Docusate Sodium (Docusate Sodium 100 Mg Capsule) 100 mg PO BID [facility] Last Admin: 06/28/25 20:37 Dose: 100 mg Famotidine (Famotidine 20 Mg Tablet) 20 mg PO BID [facility] Last Admin: 06/28/25 20:36 Dose: 20 mg Folic Acid (Folic Acid 1 Mg Tablet) 1 mg PO DAILY [facility] Last Admin: 06/28/25 09:04 Dose: 1 mg Hydroxyzine HCl (Hydroxyzine Hcl 50 Mg Tablet) 50 mg PO Q8H PRN PRN Reason: Anxiety Last Admin: 06/25/25 11:42 Dose: 50 mg Lactated Ringer's (Lr) 1,000 mls @ 50 mls/hr IVCONT .Q20H [facility] Ibuprofen (Ibuprofen 800 Mg Tablet) 800 mg PO Q8H PRN PRN Reason: moderate pain Last Admin: 06/26/25 18:43 Dose: 800 mg Lactase (Lactase Tablet) 3 tab PO TIDWM [facility] Last Admin: 06/28/25 17:16 Dose: 3 tab Lorazepam (Lorazepam 0.5 Mg Tablet) 0.5 mg PO BID [facility] Last Admin: 06/28/25 20:37 Dose: 0.5 mg Magnesium Hydroxide (Milk Of Magnesia 30 Ml Oral.Susp) 30 ml PO DAILY PRN PRN Reason: Constipation Magnesium Oxide (Magnesium Oxide 400 Mg Tablet) 400 mg PO BIDPC [facility] Last Admin: 06/28/25 17:17 Dose: 400 mg Metformin HCl (Metformin Hcl 500 Mg Tablet) 500 mg PO DAILY [facility] Last Admin: 06/28/25 09:05 Dose: 500 mg Methocarbamol (Methocarbamol 500 Mg Tablet) 500 mg PO TID PRN PRN Reason: severe pain Last Admin: 06/27/25 16:36 Dose: 500 mg Metoprolol Tartrate (Metoprolol Tartrate 50 Mg Tablet) 50 mg PO BID [facility]; Vero col Last Admin: 06/28/25 20:37 Dose: 50 mg Multivitamins/Vitamin C (Multivitamin Tablet) 1 tab PO DAILY [facility] Last Admin: 06/28/25 09:07 Dose: 1 tab Naloxone HCl (Naloxone Hcl 0.4 Mg/Ml Vial) 0.04 mg IVPUSH Q5M PRN PRN Reason: Excessive sedation or RR < 8 Nicotine Polacrilex (Nicotine Polacrilex 2 Mg Gum) 2 mg BUCCAL Q2H PRN PRN Reason: Nicotine Cravings Nitroglycerin (Nitroglycerin 0.4 Mg Tab.Subl) 0.4 mg SUBLINGUAL Q5MX3 PRN PRN Reason: chest pain Polyethylene Glycol (Polyethylene Glycol 3350 17 Gm Powd.Pack) 17 gm PO DAILY PRN PRN Reason: Constipation Last Admin: 06/22/25 14:56 Dose: 17 gm Sertraline HCl (Sertraline Hcl 100 Mg Tablet) 100 mg PO DAILY [facility] Last Admin: 06/28/25 09:04 Dose: 100 mg Simethicone (Simethicone 80 Mg Tab.Chew) 80 mg PO QIDWMHS [facility] Last Admin: 06/28/25 20:36 Dose: 80 mg Sucralfate (Sucralfate 1 Gm Tablet) 1 gm PO QIDACHS [facility] Last Admin: 06/28/25 20:37 Dose: 1 gm Tamsulosin HCl (Tamsulosin Hcl 0.4 Mg Capsule) 0.8 mg PO BEDTIME [facility] Last Admin: 06/28/25 20:36 Dose: 0.8 mg Trazodone HCl (Trazodone Hcl 50 Mg Tablet) 150 mg PO BEDTIME [facility] Last Admin: 06/28/25 20:36 Dose: 150 mg Trazodone HCl (Trazodone Hcl 50 Mg Tablet) 50 mg PO BEDTIME PRN PRN Reason: Insomnia Venlafaxine HCl (Venlafaxine Hcl Er 37.5 Mg Cap.Er.24h) 37.5 mg PO DAILY [facility] Last Admin: 06/28/25 09:06 Dose: 37.5 mg Vitamin D (Cholecalciferol (Vitamin D3) 25 Mcg Tablet) 50 mcg PO DAILY [facility] Last Admin: 06/28/25 09:03 Dose: 50 mcg Home Medications ?Medication ?Instructions ?Recorded ?Confirmed ?Last Taken ?Type aspirin 81 mg tablet,delayed 81 mg PO DAILY 06/09/25 1 06/08/25 History release atorvastatin 40 mg tablet 40 mg PO BEDTIME cholesterol 06/09/25 06/09/25 06/08/25 History calcium 500 mg (as 2 tab PO BID 06/09/25 Unknown History carbonate)-vitamin D3 5 mcg (200 unit) tablet (Oyster Shell Calcium-Vitamin D3) cholecalciferol (vitamin D3) 50 50 mcg PO DAILY 06/09/25 06/08/25 H istory mcg (2,000 unit) capsule clozapine 100 mg tablet 300 mg PO BEDTIME 06/09/25 1 06/08/25 History clozapine 50 mg tablet 50 mg PO BEDTIME 06/09/2506/08/25 History dextroamphetamine-amphetamine ER 2 cap PO DAILY 06/09/25 06/08/25 History 10 mg 24hr capsule,extend release docusate sodium 100 mg capsule 100 mg PO BID 06/09/25 06/09/25 06/08/25 History duloxetine 60 mg capsule,delayed 60 mg PO DAILY 06/09/25 06/08/25 History release famotidine 20 mg tablet 20 mg PO BID acid reflux 06/09/25 Unknown History guanfacine 1 mg tablet,extended 1 mg PO DAILY 06/09/25 06/09/25 Unknown History release 24 hr ibuprofen 800 mg tablet 800 mg PO Q8H PRN pain 06/0906/09/25 Unknown History lorazepam 1 mg tablet 1 mg PO BEDTIME PRN insomnia 06/09/25 06/09/2525 History metoprolol succinate 25 mg 75 mg PO DAILY 06/09/25 Unknown History tablet,extended release 24 hr multivitamin with folic acid 400 1 tab PO DAILY 06/09/25 06/08/25 History mcg tablet (Daily-Avtar (with folic acid)) sertraline 100 mg tablet 100 mg PO DAILY 06/09/2506/08/25 History sucralfate 1 gram tablet 1 g PO QID 06/09/25 06/09/25 Unknown History tamsulosin 0.4 mg capsule 0.4 mg PO BEDTIME 06/09/25 1 06/03/25 History trazodone 100 mg tablet 100 mg PO BEDTIME 06/09/25 1 06/08/25 History venlafaxine 75 mg capsule,extended 75 mg PO QAM 06/09/25 06/08/25 History release 24 hr vitamin B complex 1 cap PO DAILY 06/09/2505/2506/08/25 History Exam Height,Weight and Vital Signs: Height 6 ft Weight 92.703 kg Last Vital Signs Temp 97.1 F 06/29/25 06:22 Pulse 79 06/29/25 06:22 Resp 16 06/29/25 06:22 BP 120/83 06/29/25 06:04 Pulse Ox 96 06/29/25 06:22 O2 Del Method Room Air 06/29/25 06:22 O2 Flow Rate 2 06/24/25 08:03 Pertinent Lab Results Pertinent Lab Results: Laboratory Tests 06/10/25 06/14/25 06/14/25 08:07 14:27 17:34 WBC 7.9 RBC 4.55 L Hgb 13.0 L Hct 38.2 L MCV 84.0 MCH 28.6 MCHC 34.0 RDW 13.4 Plt Count 284 MPV 9.2 L Immature Gran % (Auto) 0.3 Neut % (Auto) 68.0 Lymph % (Auto) 21.6 Saline % (Auto) 7.3 Eos % (Auto) 1.9 Baso % (Auto) 0.9 Lymph # (Auto) 1.7 Saline # (Auto) 0.6 Eos # (Auto) 0.2 Baso # (Auto) 0.1 Abs Immat Gran (auto) 0.02 Absolute Neuts (auto) 5.7 5.4 Absolute Nucleated RBC 0.000 Nucleated RBC % (auto) 0.0 Sodium 141 139 Potassium 3.9 4.3 Chloride 108 103 Carbon Dioxide 23 26 Anion Gap 14 14 BUN 8 L 19 H Creatinine 0.94 1.19 Estim Creat Clear Calc 91.7 72.4 Estimated GFR > 60 > 60 Random Glucose 110 135 H Estimat Average Glucose 114 Hemoglobin A1c % 5.6 Calcium 9.5 9.8 Magnesium Total Bilirubin 0.3 0.3 AST 20 22 ALT 27 42 H Alkaline Phosphatase 95 93 Troponin I High Sens < 2.7 Total Protein 7.5 7.6 Albumin 4.7 4.8 Triglycerides 298 H Cholesterol 159 LDL Cholesterol, Calc 73 HDL Cholesterol 27 L TSH 0.86 Free T4 1.01 Urine Color Urine Appearance Urine pH Ur Specific [place] Urine Protein Urine Glucose (UA) Urine Ketones Urine Blood Urine Nitrite Ur Leukocyte Esterase 06/17/25 06/17/25 06/21/25 17:35 17:36 10:40 WBC RBC Hgb Hct MCV MCH MCHC RDW Plt Count MPV Immature Gran % (Auto) Neut % (Auto) Lymph % (Auto) Saline % (Auto) Eos % (Auto) Baso % (Auto) Lymph # (Auto) Saline # (Auto) Eos # (Auto) Baso # (Auto) Abs Immat Gran (auto) Absolute Neuts (auto) 5.5 Absolute Nucleated RBC Nucleated RBC % (auto) Sodium Potassium Chloride Carbon Dioxide Anion Gap BUN Creatinine 1.13 Estim Creat Clear Calc 76.3 Estimated GFR > 60 Random Glucose Estimat Average Glucose Hemoglobin A1c % Calcium Magnesium Total Bilirubin AST ALT Alkaline Phosphatase Troponin I High Sens Total Protein Albumin Triglycerides Cholesterol LDL Cholesterol, Calc HDL Cholesterol TSH Free T4 Urine Color Yellow Urine Appearance Clear Urine pH 7.0 Ur Specific [place] 1.015 Urine Protein Negative Urine Glucose (UA) Negative Urine Ketones Negative Urine Blood Negative Urine Nitrite Negative Ur Leukocyte Esterase Negative 06/24/25 06/27/25 06/27/25 13:01 11:19 11:19 WBC 6.6 RBC 4.80 Hgb 13.7 L Hct 40.9 L MCV 85.2 MCH 28.5 MCHC 33.5 RDW 13.4 Plt Count 248 MPV 10.1 Immature Gran % (Auto) 0.5 H Neut % (Auto) 64.6 Lymph % (Auto) 23.1 Saline % (Auto) 7.3 Eos % (Auto) 3.4 Baso % (Auto) 1.1 Lymph # (Auto) 1.5 Saline # (Auto) 0.5 Eos # (Auto) 0.2 Baso # (Auto) 0.1 Abs Immat Gran (auto) 0.03 Absolute Neuts (auto) 5.6 4.2 Absolute Nucleated RBC 0.000 Nucleated RBC % (auto) 0.0 Sodium 142 Potassium 4.1 Chloride 105 Carbon Dioxide 28 Anion Gap 13 BUN 15 Creatinine 1.12 1.00 Estim Creat Clear Calc 76.9 86.2 Estimated GFR > 60 > 60 Random Glucose 122 H Estimat Average Glucose Hemoglobin A1c % Calcium 9.6 Magnesium 2.3 Total Bilirubin AST ALT Alkaline Phosphatase Troponin I High Sens Cancelled < 2.7 Total Protein Albumin Triglycerides Cholesterol LDL Cholesterol, Calc HDL Cholesterol TSH Free T4 Urine Color Urine Appearance Urine pH Ur Specific [place] Urine Protein Urine Glucose (UA) Urine Ketones Urine Blood Urine Nitrite Ur Leukocyte Esterase Airway Mallampati Class: I (edentulous) TM Dist: >3cm Neck ROM: Full Heart: rrr Lungs: cta Assessment and Plan Assessment Anesthesia Assessment: Anesthesia Plan Discussed and Chart Reviewed Final Anesthetic Review Family History of Problems with Anesthesia: No History of Problems with Anesthesia: No NPO: Yes ASA Class: III Final Preanesthetic Review: No Changes in Pt Med Stat, Meds/Allgs Chart Reviewed and Consent Obtained/Reviewed Patient Risk: Intermediate Procedure Risk: Intermediate Anesthetic Plan Anesthetic Plan: GA Disposition: Standard PACU
--- NOTE | 2025-06-29 07:39 | MHC.SHP ---
Pre-Procedural Eval Section A - 24 Hr Update-Section A only Date of Service: 06/29/25 Changes since office visit: Yes New Medical Problems and Yes Patient answered all questions; No Cold of Flu in the past 2 weeks and No Changes in Medication The patient has been examined within 24 hours of the surgical procedure. The History & Physical has been completed within 30 days and I have reviewed it.: Yes Section B - Complete if H&P > 30 days Chief Complaint: SI Allergies: Allergies Allergy/AdvReac Type Severity Reaction Status Date / Time bupropion Allergy Rash Verified 06/09/25 19:07 haloperidol (From Haldol) Allergy Rash Verified 06/09/25 19:07 lactose Allergy Gastrointestinal Verified 06/09/25 19:07 Upset peanut Allergy Anaphylaxis Verified 06/09/25 19:07 ziprasidone Allergy Rash Verified 06/09/25 19:07 Plan I have reviewed the history and physical and performed a pertinent physical examination on my patient. No changes have occurred unless specified. Time Spent With Patient Time: Total time managing care of this patient today ____ minutes.
--- NOTE | 2025-06-29 08:02 | HO.ECTPROC ---
ECT Procedure Note Diagnosis/Treatment Date of Service: 06/29/25 Diagnosis: Schizoaffective Disorder Previous ECT Date: 06/24/25 Current Treatment Number: 6 Treatment: Series Interval Clinical Notes: pt states feeling somewhat better denies any new medical sx no cognitive complaints Time: Total time managing care of this patient today ____ minutes. ECT Settings Device: THYMATRON DGx Electrode Placement: Right Unilateral Program/Pulse Width: 0.25 Energy Percent: 75 Seizure Duration By EEG (in seconds): 31 Medications Administration General Anesthetic: Etomidate (16 mg) Muscle Relaxant: Succinylcholine (100 mg) Ancillary Medications Anti-emetics: Zofran - Pre ECT (4 mg) Miscillaneous Medications: Propofol (30 mg for post-ECT mild agitation ) Airway Management Airway Management: Bag Mask Ventilation Treatment Recommendations No Changes Recommended: No change Notes: `Titrate energy if no significant improvement by next tx day was inc to 75 % this tx Pt Tolerated Procedure w/o Issue: Yes
--- NOTE | 2025-06-29 09:18 | HO.PSYCHPN ---
Subjective Subjective Date of Service: 06/29/25 Reason For Visit: SI Interim History: chart reviewed, case discussed w/ team Pt had ECT this am. Reports he didn't even realize he got it when he woke up. Denies any SE. Denies POWER today. He's been taking his time getting out of bed. Mood is 'okay'. Slept 8 hrs Denies SI. Denies AHVH Medication Compliance: Yes Mental Status Exam Mental Status Exam Narrative: Appearance: Casually dressed. grooming is fair. good eye contact Attitude:Cooperative Speech: Fluent and wnl in regard to volume, tone, prosody Motor activity: Calm, no tremors or dyskinesias Mood: as noted above Affect: appropriate, reactive, smiles/laughs at times Thought process: goal directed and without evidence of formal thought disorder Thought content: as noted above. Perception: does not appear to respond to internal stimuli Alert/oriented in all spheres Cognition grossly intact Insight: intact Judgment: intact Diagnostics Vital Signs (24Hr): Vital Signs - 24 hr 06/28/25 20:00 06/28/25 20:05 06/29/25 06:00 Temperature 97.6 F Pulse Rate 85 85 86 Respiratory Rate 16 Blood Pressure 131/76 126/74 136/75 Pulse Oximetry 98 Oxygen Delivery Method Room Air Oxygen Flow Rate 06/29/25 06:02 06/29/25 06:04 06/29/25 06:05 Temperature 97.6 F Pulse Rate 86 95 112 H Respiratory Rate 16 Blood Pressure 136/75 120/83 Pulse Oximetry 96 Oxygen Delivery Method Oxygen Flow Rate 06/29/25 06:22 06/29/25 08:03 06/29/25 08:08 Temperature 97.1 F 97.2 F Pulse Rate 79 111 H 92 Respiratory Rate 16 18 18 Blood Pressure 164/66 H 160/74 H Pulse Oximetry 96 93 93 Oxygen Delivery Method Room Air Nasal Cannula with ETCO2 Nasal Cannula with ETCO2 Oxygen Flow Rate 2 2 06/29/25 08:13 06/29/25 08:18 06/29/25 08:33 Temperature 97.4 F Pulse Rate 89 85 84 Respiratory Rate 18 18 20 Blood Pressure 155/87 H 166/82 H 146/77 H Pulse Oximetry 95 97 95 Oxygen Delivery Method Nasal Cannula with ETCO2 Room Air Room Air Oxygen Flow Rate 2 BMI result Body Mass Index 27.7 Labs 06/27/25 11:19 06/27/25 11:19 Labs: Laboratory Results - last 48 hr 06/27/25 06/27/25 11:19 11:19 WBC 6.6 RBC 4.80 Hgb 13.7 L Hct 40.9 L MCV 85.2 MCH 28.5 MCHC 33.5 RDW 13.4 Plt Count 248 MPV 10.1 Immature Gran % (Auto) 0.5 H Neut % (Auto) 64.6 Lymph % (Auto) 23.1 [place] % (Auto) 7.3 Eos % (Auto) 3.4 Baso % (Auto) 1.1 Lymph # (Auto) 1.5 [place] # (Auto) 0.5 Eos # (Auto) 0.2 Baso # (Auto) 0.1 Abs Immat Gran (auto) 0.03 Absolute Neuts (auto) 4.2 Absolute Nucleated RBC 0.000 Nucleated RBC % (auto) 0.0 Sodium 142 Potassium 4.1 Chloride 105 Carbon Dioxide 28 Anion Gap 13 BUN 15 Creatinine 1.00 Estim Creat Clear Calc 86.2 Estimated GFR > 60 Random Glucose 122 H Calcium 9.6 Magnesium 2.3 Troponin I High Sens Cancelled < 2.7 Imaging Radiology Impressions: ITS Impressions Chest X-Ray 06/14/25 16:43 IMPRESSION: No evidence for acute disease in the chest. Electronically signed by: Concepcion Delarosa MD 06/14/2025 04:54 PM EDT RP Head CT 06/27/25 10:09 IMPRESSION: No acute fracture, bony calvarium. No acute intracranial hemorrhage. Atherosclerosis disease, intracranial. Electronically signed by: Pino Ponce MD 06/27/2025 10:44 AM EST RP Medications Medications Current Medications Acetaminophen (Acetaminophen 325 Mg Tablet) 975 mg PO BID PRN PRN Reason: Pain, Moderate(Pain Scale 4-6) Last Admin: 06/28/25 16:05 Dose: 975 mg Al Hydroxide/Mg Hydroxide (Magnesium Hydrox/Alum Hydrox 30 Ml Oral.Susp) 30 ml PO Q6H PRN PRN Reason: Heartburn/Nausea Aspirin (Aspirin Enteric Coated 81 Mg Tablet.) 81 mg PO DAILY [facility] Last Admin: 06/28/25 09:05 Dose: 81 mg Atorvastatin Calcium (Atorvastatin Calcium 40 Mg Tablet) 40 mg PO BEDTIME [facility] Last Admin: 06/28/25 20:37 Dose: 40 mg Budesonide (Budesonide 180 Mcg Aer.Pow.Ba) 2 puff INHALE RDAILY [facility] Last Admin: 06/28/25 09:09 Dose: Not Given Calcium Carbonate/Cholecalciferol (Calcium + Vitamin D 250 Mg Tablet) 500 mg PO BID [facility] Last Admin: 06/28/25 20:36 Dose: 500 mg Clozapine (Clozapine 100 Mg Tablet) 300 mg PO BEDTIME [facility] Last Admin: 06/28/25 20:36 Dose: 300 mg Diphenhydramine HCl (Diphenhydramine Hcl 25 Mg Capsule) 50 mg PO BEDTIME PRN PRN Reason: Insomnia Docusate Sodium (Docusate Sodium 100 Mg Capsule) 100 mg PO BID [facility] Last Admin: 06/28/25 20:37 Dose: 100 mg Famotidine (Famotidine 20 Mg Tablet) 20 mg PO BID [facility] Last Admin: 06/28/25 20:36 Dose: 20 mg Folic Acid (Folic Acid 1 Mg Tablet) 1 mg PO DAILY [facility] Last Admin: 06/28/25 09:04 Dose: 1 mg Hydroxyzine HCl (Hydroxyzine Hcl 50 Mg Tablet) 50 mg PO Q8H PRN PRN Reason: Anxiety Last Admin: 06/25/25 11:42 Dose: 50 mg Ibuprofen (Ibuprofen 800 Mg Tablet) 800 mg PO Q8H PRN PRN Reason: moderate pain Last Admin: 06/26/25 18:43 Dose: 800 mg Lactase (Lactase Tablet) 3 tab PO TIDWM [facility] Last Admin: 06/28/25 17:16 Dose: 3 tab Lorazepam (Lorazepam 0.5 Mg Tablet) 0.5 mg PO BID [facility] Last Admin: 06/28/25 20:37 Dose: 0.5 mg Magnesium Hydroxide (Milk Of Magnesia 30 Ml Oral.Susp) 30 ml PO DAILY PRN PRN Reason: Constipation Magnesium Oxide ([facility] Oxide 400 Mg Tablet) [facility] Last Admin: 06/28/25 17:17 Dose: 400 mg Metformin HCl (Metformin Hcl 500 Mg Tablet) 500 mg PO DAILY [facility] Last Admin: 06/28/25 09:05 Dose: 500 mg Methocarbamol (Methocarbamol 500 Mg Tablet) 500 mg PO TID PRN PRN Reason: severe pain Last Admin: 06/27/25 16:36 Dose: 500 mg Metoprolol Tartrate (Metoprolol Tartrate 50 Mg Tablet) 50 mg PO BID [facility]; Protocol Last Admin: 06/28/25 20:37 Dose: 50 mg Multivitamins/Vitamin C (Multivitamin Tablet) 1 tab PO DAILY [facility] Last Admin: 06/28/25 09:07 Dose: 1 tab Naloxone HCl (Naloxone Hcl 0.4 Mg/Ml Vial) 0.04 mg IVPUSH Q5M PRN PRN Reason: Excessive sedation or RR < 8 Naloxone HCl (Naloxone Hcl 0.4 Mg/Ml Vial) 0.04 mg IVPUSH Q5M PRN PRN Reason: Excessive sedation or RR < 8 Nicotine Polacrilex (Nicotine Polacrilex 2 Mg Gum) 2 mg BUCCAL Q2H PRN PRN Reason: Nicotine Cravings Nitroglycerin (Nitroglycerin 0.4 Mg Tab.Subl) 0.4 mg SUBLINGUAL Q5MX3 PRN PRN Reason: chest pain Polyethylene Glycol (Polyethylene Glycol 3350 17 Gm Powd.Pack) 17 gm PO DAILY PRN PRN Reason: Constipation Last Admin: 06/22/25 14:56 Dose: 17 gm Sertraline HCl (Sertraline Hcl 100 Mg Tablet) 100 mg PO DAILY [facility] Last Admin: 06/28/25 09:04 Dose: 100 mg Simethicone (Simethicone 80 Mg Tab.Chew) 80 mg PO QIDWMHS [facility] Last Admin: 06/28/25 20:36 Dose: 80 mg Sucralfate (Sucralfate 1 Gm Tablet) 1 gm PO QIDACHS [facility] Last Admin: 06/28/25 20:37 Dose: 1 gm Tamsulosin HCl (Tamsulosin Hcl 0.4 Mg Capsule) 0.8 mg PO BEDTIME [facility] Last Admin: 06/28/25 20:36 Dose: 0.8 mg Trazodone HCl (Trazodone Hcl 50 Mg Tablet) 150 mg PO BEDTIME [facility] Last Admin: 06/28/25 20:36 Dose: 150 mg Trazodone HCl (Trazodone Hcl 50 Mg Tablet) 50 mg PO BEDTIME PRN PRN Reason: Insomnia Venlafaxine HCl (Venlafaxine Hcl Er 37.5 Mg Cap.Er.24h) 37.5 mg PO DAILY [facility] Last Admin: 06/28/25 09:06 Dose: 37.5 mg Vitamin D (Cholecalciferol (Vitamin D3) 25 Mcg Tablet) 50 mcg PO DAILY [facility] Last Admin: 06/28/25 09:03 Dose: 50 mcg Allergies Allergies Allergy/AdvReac Type Severity Reaction Status Date / Time bupropion Allergy Rash Verified 06/09/25 19:07 haloperidol (From Haldol) Allergy Rash Verified 06/09/25 19:07 lactose Allergy Gastrointestinal Verified 06/09/25 19:07 Upset peanut Allergy Anaphylaxis Verified 06/09/25 19:07 ziprasidone Allergy Rash Verified 06/09/25 19:07 Assessment & Plan Assessment & Plan (1) Coronary artery disease: Status: Acute Code(s): I25.10 - Atherosclerotic heart disease of [place] coronary artery without angina pectoris (2) Right knee pain: Status: Acute Code(s): M25.561 - Pain in right knee Plan Mr. Brink is a 59 y/o DWM with documented h/o schizophrenia, bipolar d/o, depression, PTSD, KASSIE, sleep apnea, HTN, CAD, hyponatremia, peripheral neuropathy, 3 HI's s/p CABG, unsteady gait, and type II DM who was brought to the [facility] ED due to AH and SI. He was transferred to [facility] for tx of severe depression, SI and psychotic sx. Plan: Admitted to for safety and stabilization Legal status- CV Admission medical consult ordered 5 minute safety checks due to fall risk. Uses a walker Meds- Continue current medications from senior care list for now: Clozaril 50 mg qhs Clozaril 300 mg qhs for now (grp home list says 'bid at hs' and external med rec shows 300 mg qhs) Effexor XR 75 mg qam *per external med rec, it looks like pt is cross titrating from venlafaxine to sertraline, was previously on 225 mg qd. Will continue cross titration after clarifying when the doses were last adjusted diphenhydramine 50 mg qhs prn for insomna hydroxyzine 50 mg q 8 hrs prn for anxiety sertraline 100 mg qd trazodone 100 mg qhs acetaminophen 975 mg bid ASA 81 mg qam budesonide-formoterol 2 inhalations qd Calcium-Vit D 500mg-5 mcg tabs, 2 tabs po bid docusate 100 mg bid folic acid 1 mg qam ibuprofen 800 mg q 8 hrs prn for pain lactase 9000 unit tablet tid magnesium oxide 400 mg bid metformin 500 mg qam methocarbamol 500 mg q 8 hrs for muscle pain metoprolol 50 mg bid MVI qd nitroglycerin 0.4 mg SL q 5 min prn for chest pain u pt 3 doses simethicone 80 mg 4x/day after meals and at hs sucralfate 1 g 4x/day before meals tamsulosin 0.8 mg qhs Vit B complex qam Vit D3 50 mcg qam Will consider ECT 06/11: Trial GBP 100 mg TID for anxiety and pain. 06/12: DC Gabapentin. Monitor urinary retention/incontinence. He is on Tamsulosin. Continue current management and treatment plan. 06/13: Will refer to ECT due to inadequate response to multiple psychotropic medication trials including: current regimen- clozapine 350 mg qd, sertraline 100 mg qd, venlafaxine (tapering off, was up to 225 mg qd), trazodone 100 mg qhs Prior med trials: Prozac, Cymbalta, Lamictal, Strattera, Zyprexa, Adderall ER, Invega Sustenna, VPA -Will request hospitalist consult for risk stratification for ECT -Taper venlafaxine to 37.5 mg starting tomorrow 06/14: ECT ordered for tomorrow am. NPO except for meds with sips of water after midnight. Medically cleared for ECT today by Alejandra Dangelo NP ECT risk stratification. Patient without previous problems with anesthesia, has previously undergone ECT RCRI 0 points, no further cardiac workup or treatment indicated at this time. Patient denies any past problems with anesthesia. EKG pending, no evidence of ischemic changes Based on stated PMH, HPI, and physical exam, there are no There are no obvious contraindications to the planned procedure. Patient with moderate risk due to advancing age and history of coronary artery disease. 06/15: Completed ECT #1 today (RUL) and tolerated it well. Will continue current tx plan for now, with ECT #2 scheduled for 06/17: Continue current tx plan. ECT #2 scheduled for tomorrow. NPO and ECT orders entered. 06/17: Did well w/ ECT #2. Ordered NPO for ECT #3 on Tuesday 06/19: Laying in bed most of day. Patient continues to report feeling depressed; he reports not sleeping well last night but is not clear for reason. denies SI/HI/VH. +AH telling me I'm going to . Encouraged to leave room. continue tx plan. 06/20: ECT #3 completed today. Endorses ongoing depressed mood without signif improvement. Continue current tx plan. ECT #4 scheduled for 06/22. ECT & NPO orders are entered for 06/22 06/21: Pt is agreeable w/ plan to d/c venlafaxine (seems to have started x-titration to sertraline during one of his inpt admissions). Will titrate standing dose of trazodone to 150 mg qhs. ECT #4 scheduled for tomorrow 06/22: Completed ECT #4. Now off venlafaxine. C/O constipation x 3 days. TW asked pt's nurse to give him MiraLax. Pt denies significant improvement in depression thus far. I explained that it's still early in the ECT series to expect a significant response. Medical necessity for continued inpatient psychiatric treatment: Continuation of ECT series for depression. Unable to engage in outpatient ECT since there are no ECT providing facilities near his senior care in [place]. Treatment failure with multiple psychotropic trials and previous positive reponse to ECT 06/23: Pt has noticed subtle improvement in his mood since starting ECT. Endorses some confusion and dissociative sx which could be related to ECT and/or discontinuing the venlafaxine. Will re-start venlafaxine 37.5 mg tomorrow am for more gradual taper to reduce discontinuation sx. Will d/c clozapine 25 mg am dose w/ plan to cross titrate to Seroquel, which was reportedly effective in the past for tx of depression and AH, also since pt has multiple SE from the clozapine without any noticeable benefit. Pt is agreeable w/ this tx plan 06/24: Mood gradually improving, brighter affect today. Will continue current med regimen for now and continue cross-titration over the weekend. ECT #5 done today. #6 scheduled for 06/27: Will start lorazepam 0.5 mg bid for tx of potential venlafaxine discontinuation syndrome +/- EPS. Advised pt to stand up slowly to reduce risk of falls. 06/26: Continue current tx plan. ECT #6 scheduled for tomorrow. NPO orders in 06/27: ECT cx'd after pt had an unwitnessed fall and reported hitting the back of his head. CT head showed no acute changes and EKG was unremarkable. Pt reported blacking out prior to falling, which has reportedly happened at his senior care also. He doesn't think any of the recent med changes contributed to the fall. As a precaution, will hold the Seroquel tonight since it was recently added. TW advised pt to sit up on his bed for a few minutes before standing in the morning and then stand up slowly and pt expressed an understanding and agreed. 06/28: Medically cleared by hospitalist to resume ECT. Input much appreciated. NPO orders in, ECT #6 scheduled for tomorrow Orthostatics ordered q 8 hrs x 24 hrs by hospitalist 06/29: Completed ECT #6 today. Mood is gradually improving. Will continue current med regimen. ECT #7 scheduled for Friday, 07/01 Reason for continued inpatient stay Substantial Risk for: med/psych decompensation Time Spent With Patient Time: Total time managing care of this patient today ____ minutes.
[2025-06-29] MEDS: Calcium + Vitamin D 250 MG TABLET 500 MG PO ×2 (09:33→20:26)
[2025-06-29] MEDS: Venlafaxine HCl ER 37.5 MG CAP.ER.24H PO (09:34)
[2025-06-29] MEDS: Aspirin Enteric Coated 81 MG TABLET.DR PO (09:34)
[2025-06-30 06:00] VITALS: BP 119/63; PULSE 89
[2025-06-30 06:25] VITALS: BP 110/64; PULSE 97
[2025-06-30 07:00] VITALS: BMI 27.8
[2025-06-30 07:51] VITALS: BP 130/65; PULSE 89; RESP 16; TEMP 36.5; O2SAT 96
[2025-06-30] MEDS: Calcium + Vitamin D 250 MG TABLET 500 MG PO ×2 (08:40→20:30)
[2025-06-30] MEDS: Aspirin Enteric Coated 81 MG TABLET.DR PO (08:41)
[2025-06-30] MEDS: Venlafaxine HCl ER 37.5 MG CAP.ER.24H PO (08:41)
[2025-06-30] MEDS: Magnesium Hydrox/Alum Hydrox 30 ML ORAL.SUSP PO (12:21)
[2025-06-30 16:37] VITALS: BP 123/70; PULSE 68
--- NOTE | 2025-06-30 18:17 | HO.PSYCHPN ---
Subjective Subjective Date of Service: 06/30/25 Reason For Visit: SI Subjective Notes: Conditional Voluntary Interim History: chart reviewed, case discussed with tx team pt's primary concern today is the intermittent twitches in his arms and leg weakness but he notes that these are chronic issues. He reports that his mood is 'pretty good' reports only sleeping 2 hrs last night. T/W asked what the issue was and he stated that he never sleeps well, though he reported sleeping 8 hrs x past 2 nights. He denies SI. Denies [facility] Mental Status Exam Mental Status Exam Narrative: Appearance: Casually dressed. grooming is fair. good eye contact Attitude: Cooperative. Expresses appreciation for care received Speech: Fluent and wnl in regard to volume, tone, prosody Motor activity: Calm, no tremors or dyskinesias Mood: as noted above Affect: appropriate, reactive Thought process: goal directed and without evidence of formal thought disorder Thought content: somatically preoccupied Perception: does not appear to respond to internal stimuli Alert/oriented in all spheres Cognition grossly intact Insight: intact Judgment: intact Diagnostics Vital Signs (24Hr): Vital Signs - 24 hr 06/29/25 20:00 06/30/25 06:00 06/30/25 06:25 Temperature 97.6 F Pulse Rate 77 89 97 Respiratory Rate 16 Blood Pressure 107/51 L 119/63 110/64 Pulse Oximetry 97 Oxygen Delivery Method Room Air 06/30/25 07:51 06/30/25 16:37 Temperature 97.7 F Pulse Rate 89 68 Respiratory Rate 16 Blood Pressure 130/65 123/70 Pulse Oximetry 96 Oxygen Delivery Method Room Air BMI result Body Mass Index 27.8 Labs 06/27/25 11:19 06/27/25 11:19 Imaging Radiology Impressions: ITS Impressions Chest X-Ray 06/14/25 16:43 IMPRESSION: No evidence for acute disease in the chest. Electronically signed by: Concepcion Delarosa MD 06/14/2025 04:54 PM EDT RP Head CT 06/27/25 10:09 IMPRESSION: No acute fracture, bony calvarium. No acute intracranial hemorrhage. Atherosclerosis disease, intracranial. Electronically signed by: Pino Ponce MD 06/27/2025 10:44 AM EST RP Medications Medications Current Medications Acetaminophen (Acetaminophen 325 Mg Tablet) 975 mg PO BID PRN PRN Reason: Pain, Moderate(Pain Scale 4-6) Last Admin: 06/30/25 16:15 Dose: 975 mg Al Hydroxide/Mg Hydroxide (Magnesium Hydrox/Alum Hydrox 30 Ml Oral.Susp) 30 ml PO Q6H PRN PRN Reason: Heartburn/Nausea Last Admin: 06/30/25 12:21 Dose: 30 ml Aspirin (Aspirin Enteric Coated 81 Mg Tablet.Dr) 81 mg PO DAILY [facility] Last Admin: 06/30/25 08:41 Dose: 81 mg Atorvastatin Calcium (Atorvastatin Calcium 40 Mg Tablet) 40 mg PO BEDTIME [facility] Last Admin: 06/29/25 20:28 Dose: 40 mg Budesonide (Budesonide 180 Mcg Aer.Pow.Ba) 2 puff INHALE RDAILY [facility] Last Admin: 06/30/25 08:14 Dose: Not Given Calcium Carbonate/Cholecalciferol (Calcium + Vitamin D 250 Mg Tablet) 500 mg PO BID [facility] Last Admin: 06/30/25 08:40 Dose: 500 mg Clozapine (Clozapine 100 Mg Tablet) 300 mg PO BEDTIME [facility] Last Admin: 06/29/25 20:24 Dose: 300 mg Diphenhydramine HCl (Diphenhydramine Hcl 25 Mg Capsule) 50 mg PO BEDTIME PRN PRN Reason: Insomnia Docusate Sodium (Docusate Sodium 100 Mg Capsule) 100 mg PO BID [facility] Last Admin: 06/30/25 08:40 Dose: 100 mg Famotidine (Famotidine 20 Mg Tablet) 20 mg PO BID [facility] Last Admin: 06/30/25 08:41 Dose: 20 mg Folic Acid (Folic Acid 1 Mg Tablet) 1 mg PO DAILY [facility] Last Admin: 06/30/25 08:41 Dose: 1 mg Hydroxyzine HCl (Hydroxyzine Hcl 50 Mg Tablet) 50 mg PO Q8H PRN PRN Reason: Anxiety Last Admin: 06/30/25 12:21 Dose: 50 mg Ibuprofen (Ibuprofen 800 Mg Tablet) 800 mg PO Q8H PRN PRN Reason: moderate pain Last Admin: 06/30/25 12:21 Dose: 800 mg Lactase (Lactase Tablet) 3 tab PO TIDWM [facility] Last Admin: 06/30/25 17:05 Dose: 3 tab Lorazepam (Lorazepam 0.5 Mg Tablet) 0.5 mg PO BID [facility] Last Admin: 06/30/25 08:41 Dose: 0.5 mg Magnesium Hydroxide (Milk Of Magnesia 30 Ml Oral.Susp) 30 ml PO DAILY PRN PRN Reason: Constipation Magnesium Oxide ([facility]esium [facility] 400 Mg Tablet) [facility] Last Admin: 06/30/25 17:05 Dose: 400 mg Metformin HCl (Metformin Hcl 500 Mg Tablet) 500 mg PO DAILY [facility] Last Admin: 06/30/25 08:41 Dose: 500 mg Methocarbamol (Methocarbamol 500 Mg Tablet) 500 mg PO TID PRN PRN Reason: severe pain Last Admin: 06/29/25 12:01 Dose: 500 mg Metoprolol Tartrate (Metoprolol Tartrate 50 Mg Tablet) 50 mg PO BID [facility]; Protocol Last Admin: 06/30/25 08:41 Dose: 50 mg Multivitamins/Vitamin C (Multivitamin Tablet) 1 tab PO DAILY [facility] Last Admin: 06/30/25 08:41 Dose: 1 tab Naloxone HCl (Naloxone Hcl 0.4 Mg/Ml Vial) 0.04 mg IVPUSH Q5M PRN PRN Reason: Excessive sedation or RR < 8 Naloxone HCl (Naloxone Hcl 0.4 Mg/Ml Vial) 0.04 mg IVPUSH Q5M PRN PRN Reason: Excessive sedation or RR < 8 Nicotine Polacrilex (Nicotine Polacrilex 2 Mg Gum) 2 mg BUCCAL Q2H PRN PRN Reason: Nicotine Cravings Nitroglycerin (Nitroglycerin 0.4 Mg Tab.Subl) 0.4 mg SUBLINGUAL Q5MX3 PRN PRN Reason: chest pain Polyethylene Glycol (Polyethylene Glycol 3350 17 Gm Powd.Pack) 17 gm PO DAILY PRN PRN Reason: Constipation Last Admin: 06/22/25 14:56 Dose: 17 gm Sertraline HCl (Sertraline Hcl 100 Mg Tablet) 100 mg PO DAILY [facility] Last Admin: 06/30/25 08:41 Dose: 100 mg Simethicone (Simethicone 80 Mg Tab.Chew) 80 mg PO QIDWMHS [facility] Last Admin: 06/30/25 17:05 Dose: 80 mg Sucralfate (Sucralfate 1 Gm Tablet) 1 gm PO QIDACHS [facility] Last Admin: 06/30/25 16:15 Dose: 1 gm Tamsulosin HCl (Tamsulosin Hcl 0.4 Mg Capsule) 0.8 mg PO BEDTIME [facility] Last Admin: 06/29/25 20:25 Dose: 0.8 mg Trazodone HCl (Trazodone Hcl 50 Mg Tablet) 150 mg PO BEDTIME [facility] Last Admin: 06/29/25 20:27 Dose: 150 mg Trazodone HCl (Trazodone Hcl 50 Mg Tablet) 50 mg PO BEDTIME PRN PRN Reason: Insomnia Venlafaxine HCl (Venlafaxine Hcl Er 37.5 Mg Cap.Er.24h) 37.5 mg PO DAILY [facility] Last Admin: 06/30/25 08:41 Dose: 37.5 mg Vitamin D (Cholecalciferol (Vitamin D3) 25 Mcg Tablet) 50 mcg PO DAILY [facility] Last Admin: 06/30/25 08:40 Dose: 50 mcg Allergies Allergies Allergy/AdvReac Type Severity Reaction Status Date / Time bupropion Allergy Rash Verified 06/09/25 19:07 haloperidol (From Haldol) Allergy Rash Verified 06/09/25 19:07 lactose Allergy Gastrointestinal Verified 06/09/25 19:07 Upset peanut Allergy Anaphylaxis Verified 06/09/25 19:07 ziprasidone Allergy Rash Verified 06/09/25 19:07 Assessment & Plan Assessment & Plan (1) Coronary artery disease: Status: Acute Code(s): I25.10 - Atherosclerotic heart disease of [place] coronary artery without angina pectoris (2) Right knee pain: Status: Acute Code(s): M25.561 - Pain in right knee Plan Mr. Brink is a 59 y/o DWM with documented h/o schizophrenia, bipolar d/o, depression, PTSD, KASSIE, sleep apnea, HTN, CAD, hyponatremia, peripheral neuropathy, 3 TN's s/p CABG, unsteady gait, and type II DM who was brought to the [facility] ED due to AH and SI. He was transferred to [facility] for tx of severe depression, SI and psychotic sx. Plan: Admitted to for safety and stabilization Legal status- CV Admission medical consult ordered 5 minute safety checks due to fall risk. Uses a walker Meds- Continue current medications from longterm list for now: Clozaril 50 mg qhs Clozaril 300 mg qhs for now (grp home list says 'bid at hs' and external med rec shows 300 mg qhs) Effexor XR 75 mg qam *per external med rec, it looks like pt is cross titrating from venlafaxine to sertraline, was previously on 225 mg qd. Will continue cross titration after clarifying when the doses were last adjusted diphenhydramine 50 mg qhs prn for insomna hydroxyzine 50 mg q 8 hrs prn for anxiety sertraline 100 mg qd trazodone 100 mg qhs acetaminophen 975 mg bid ASA 81 mg qam budesonide-formoterol 2 inhalations qd Calcium-Vit D 500mg-5 mcg tabs, 2 tabs po bid docusate 100 mg bid folic acid 1 mg qam ibuprofen 800 mg q 8 hrs prn for pain lactase 9000 unit tablet tid magnesium oxide 400 mg bid metformin 500 mg qam methocarbamol 500 mg q 8 hrs for muscle pain metoprolol 50 mg bid MVI qd nitroglycerin 0.4 mg SL q 5 min prn for chest pain u pt 3 doses simethicone 80 mg 4x/day after meals and at hs sucralfate 1 g 4x/day before meals tamsulosin 0.8 mg qhs Vit B complex qam Vit D3 50 mcg qam Will consider ECT 06/11: Trial GBP 100 mg TID for anxiety and pain. 06/12: DC Gabapentin. Monitor urinary retention/incontinence. He is on Tamsulosin. Continue current management and treatment plan. 06/13: Will refer to ECT due to inadequate response to multiple psychotropic medication trials including: current regimen- clozapine 350 mg qd, sertraline 100 mg qd, venlafaxine (tapering off, was up to 225 mg qd), trazodone 100 mg qhs Prior med trials: Prozac, Cymbalta, Lamictal, Strattera, Zyprexa, Adderall ER, Invega Sustenna, VPA -Will request hospitalist consult for risk stratification for ECT -Taper venlafaxine to 37.5 mg starting tomorrow 06/14: ECT ordered for tomorrow am. NPO except for meds with sips of water after midnight. Medically cleared for ECT today by Alejandra Dangelo NP ECT risk stratification. Patient without previous problems with anesthesia, has previously undergone ECT RCRI 0 points, no further cardiac workup or treatment indicated at this time. Patient denies any past problems with anesthesia. EKG pending, no evidence of ischemic changes Based on stated PMH, HPI, and physical exam, there are no There are no obvious contraindications to the planned procedure. Patient with moderate risk due to advancing age and history of coronary artery disease. 06/15: Completed ECT #1 today (RUL) and tolerated it well. Will continue current tx plan for now, with ECT #2 scheduled for 06/17: Continue current tx plan. ECT #2 scheduled for tomorrow. NPO and ECT orders entered. 06/17: Did well w/ ECT #2. Ordered NPO for ECT #3 on Tuesday 06/19: Laying in bed most of day. Patient continues to report feeling depressed; he reports not sleeping well last night but is not clear for reason. denies SI/HI/VH. +AH telling me I'm going to . Encouraged to leave room. continue tx plan. 06/20: ECT #3 completed today. Endorses ongoing depressed mood without signif improvement. Continue current tx plan. ECT #4 scheduled for 06/22. ECT & NPO orders are entered for 06/22 06/21: Pt is agreeable w/ plan to d/c venlafaxine (seems to have started x-titration to sertraline during one of his inpt admissions). Will titrate standing dose of trazodone to 150 mg qhs. ECT #4 scheduled for tomorrow 06/22: Completed ECT #4. Now off venlafaxine. C/O constipation x 3 days. TW asked pt's nurse to give him MiraLax. Pt denies significant improvement in depression thus far. I explained that it's still early in the ECT series to expect a significant response. Medical necessity for continued inpatient psychiatric treatment: Continuation of ECT series for depression. Unable to engage in outpatient ECT since there are no ECT providing facilities near his longterm in [place]. Treatment failure with multiple psychotropic trials and previous positive reponse to ECT 06/23: Pt has noticed subtle improvement in his mood since starting ECT. Endorses some confusion and dissociative sx which could be related to ECT and/or discontinuing the venlafaxine. Will re-start venlafaxine 37.5 mg tomorrow am for more gradual taper to reduce discontinuation sx. Will d/c clozapine 25 mg am dose w/ plan to cross titrate to Seroquel, which was reportedly effective in the past for tx of depression and AH, also since pt has multiple SE from the clozapine without any noticeable benefit. Pt is agreeable w/ this tx plan 06/24: Mood gradually improving, brighter affect today. Will continue current med regimen for now and continue cross-titration over the weekend. ECT #5 done today. #6 scheduled for Fri, 06/27 06/25: Will start lorazepam 0.5 mg bid for tx of potential venlafaxine discontinuation syndrome +/- EPS. Advised pt to stand up slowly to reduce risk of falls. 06/26: Continue current tx plan. ECT #6 scheduled for tomorrow. NPO orders in 06/27: ECT cx'd after pt had an unwitnessed fall and reported hitting the back of his head. CT head showed no acute changes and EKG was unremarkable. Pt reported blacking out prior to falling, which has reportedly happened at his longterm also. He doesn't think any of the recent med changes contributed to the fall. As a precaution, will hold the Seroquel tonight since it was recently added. TW advised pt to sit up on his bed for a few minutes before standing in the morning and then stand up slowly and pt expressed an understanding and agreed. 06/28: Medically cleared by hospitalist to resume ECT. Input much appreciated. NPO orders in, ECT #6 scheduled for tomorrow Orthostatics ordered q 8 hrs x 24 hrs by hospitalist 06/29: Completed ECT #6 today. Mood is gradually improving. Will continue current med regimen. ECT #7 scheduled for Friday, 07/01 06/30: Mood is improving. ECT #7 scheduled for tomorrow. NPO order in. Continue current med regimen Reason for continued inpatient stay Substantial Risk for: med/psych decompensation Time Spent With Patient Time: Total time managing care of this patient today ____ minutes.
[2025-06-30 20:00] VITALS: BP 127/69; PULSE 80; RESP 16; TEMP 36.5; O2SAT 98
[2025-07-01] VITALS (12 sets, daily range): BP systolic 119–166; BP diastolic 60–96; PULSE 75–88; RESP 12–30; TEMP 36.1–36.6; O2SAT 94–100
--- NOTE | 2025-07-01 07:51 | MHC.SHP ---
Pre-Procedural Eval Section A - 24 Hr Update-Section A only Date of Service: 07/01/25 The patient is an INPATIENT: Yes Changes since office visit: No Cold of Flu in the past 2 weeks, No New Medical Problems, No Changes in Medication and No Patient answered all questions The patient has been examined within 24 hours of the surgical procedure. The History & Physical has been completed within 30 days and I have reviewed it.: Yes Section B - Complete if H&P > 30 days Chief Complaint: SI Details of Present Illness: Depression improving Relevant Family History (Specify if Yes): No Relevant Social History: None Present Medications: see Short Stay Collaborative assessment Allergies: Allergies Allergy/AdvReac Type Severity Reaction Status Date / Time bupropion Allergy Rash Verified 06/09/25 19:07 haloperidol (From Haldol) Allergy Rash Verified 06/09/25 19:07 lactose Allergy Gastrointestinal Verified 06/09/25 19:07 Upset peanut Allergy Anaphylaxis Verified 06/09/25 19:07 ziprasidone Allergy Rash Verified 06/09/25 19:07 Plan Diagnosis/Plan: Unchanged I have reviewed the history and physical and performed a pertinent physical examination on my patient. No changes have occurred unless specified. Time Spent With Patient Time: Total time managing care of this patient today ____ minutes.
[2025-07-01] MEDS: Lactated Ringers 1,000 ML 100 ML IV (07:55)
--- NOTE | 2025-07-01 08:09 | P.PCN_ITS ---
ECT Procedure Note Diagnosis/Treatment Date of Service: 07/01/25 Diagnosis: Major Depressive Disorder Previous ECT Date: 06/29/25 Current Treatment Number: 7 Treatment: Series Interval Clinical Notes: Depression is improving. Denies SI. Denies any issues with last tx Time: Total time managing care of this patient today __30__ minutes. ECT Settings Device: THYMATRON DGx Electrode Placement: Right Unilateral Program/Pulse Width: 0.25 Energy Percent: 75 Seizure Duration By EEG (in seconds): 27 By Motor Observation (in seconds): 35 Medications Administration General Anesthetic: Etomidate (16) Muscle Relaxant: Succinylcholine (100) Ancillary Medications Anti-emetics: Zofran - Pre ECT (4 mg) and Zofran - Post ECT Miscillaneous Medications: Propofol (30 mg- given prophylactically 2/2 h/o post- ECT agitation ) and Midazolam (2 mg- given after propofol 2/2 agitation ) Airway Management Airway Management: Bag Mask Ventilation Treatment Recommendations No Changes Recommended: No change Pt Tolerated Procedure w/o Issue: Yes
--- NOTE | 2025-07-01 09:10 | P.CONAN1_ITS ---
History of Present Illness Consult details Consult date: 07/01/25 Reason for consult: other () Review of Systems 2 Review of Systems: Yes all other systems are reviewed and are negative Constitutional: Constitutional: Reports no additional constitutional complaints Eyes: Eyes: Reports no additional eye complaints ENT: Reports system reviewed and no additional complaints, except as documented Cardiovascular: Cardiovascular: Reports as per HPI Respiratory: Respiratory: Reports as per HPI Gastrointestinal: Gastrointestinal: Reports as per HPI Genitourinary: Genitourinary: Reports no additional male genitourinary complaints Musculoskeletal: Musculoskeletal: Reports no additional musculoskeletal complaints Integumentary/Breasts: Skin/Breast: Reports system reviewed and no additional complaints, except as docu Neurologic: Comments: discussed with Psychiatric: Psychiatric: Reports no additional psychiatric complaints Endocrine: Endocrine: Reports no additional endocrine complaints Hematologic/Lymphatic: Hematologic/Lymphatic: Reports no additional hematologic/lymphatic complaints Allergic/Immunologic: Allergic/Immunologic: Reports no additional allergic/immunologic complaints PMFSH Past Medical History Functional capacity: independent ambulation Social History Social History Household Members: Other Household Members Other:: [facility] residents Housing: Other Housing Other:: [facility] Do you presently have visiting nurse or other home services: Yes ([employer]) Comment: jasmin Patient Tobacco Use Status: Former Tobacco user Tobacco use type: Cigarette Cigarettes Per Day: 3 Years Smoked: 43 Smoked in Last 30 Days: Yes e-Cigarette/Vaping Use: Never Used Patient Interested in Nicotine Replacement: No Patient Given Instructions on How to Stop Smoking: Yes Date Education Initiated: 06/09/25 Second Hand Smoke Exposure: No Currently Displaying Signs/Symptoms of Drug Intoxication Withdrawal: No Have you been hit, kicked, punched, or otherwise hurt by someone within the past year? If so, by whom?: No Do you feel safe in your current relationship?: No Current Relationship Is there a partner from a previous relationship who is making you feel unsafe now?: No Are you made to feel afraid or neglected: No Advance Directives: No Advance Directives Information Provided: No Advance Directives on File: No Do you have thoughts of harming others: None Do you have a plan to hurt others: No Plan Recently lost weight without trying: No How much weight loss: Not applicable Eating poorly because of decreased appetite: No Nutrition screen score: 0 Nutrition Risks: No Nutritional Risk service: No Sexual orientation: Straight/Heterosexual Meds Allergies Allergy/AdvReac Type Severity Reaction Status Date / Time bupropion Allergy Rash Verified 06/09/25 19:07 haloperidol (From Haldol) Allergy Rash Verified 06/09/25 19:07 lactose Allergy Gastrointestinal Verified 06/09/25 19:07 Upset peanut Allergy Anaphylaxis Verified 06/09/25 19:07 ziprasidone Allergy Rash Verified 06/09/25 19:07 Active Medications: Current Medications Acetaminophen (Acetaminophen 325 Mg Tablet) 975 mg PO BID PRN PRN Reason: Pain, Moderate(Pain Scale 4-6) Last Admin: 06/30/25 21:58 Dose: 975 mg Al Hydroxide/Mg Hydroxide (Magnesium Hydrox/Alum Hydrox 30 Ml Oral.Susp) 30 ml PO Q6H PRN PRN Reason: Heartburn/Nausea Last Admin: 06/30/25 12:21 Dose: 30 ml Aspirin (Aspirin Enteric Coated 81 Mg Tablet.Dr) 81 mg PO DAILY [facility] Last Admin: 06/30/25 08:41 Dose: 81 mg Atorvastatin Calcium (Atorvastatin Calcium 40 Mg Tablet) 40 mg PO BEDTIME [facility] [place] Last Admin: 06/30/25 20:31 Dose: 40 mg Budesonide (Budesonide 180 Mcg Aer.Pow.Ba) 2 puff INHALE RDAILY [facility] [place] Last Admin: 06/30/25 08:14 Dose: Not Given Calcium Carbonate/Cholecalciferol (Calcium + Vitamin D 250 Mg Tablet) 500 mg PO BID [facility] [place] Last Admin: 06/30/25 20:30 Dose: 500 mg Clozapine (Clozapine 100 Mg Tablet) 300 mg PO BEDTIME [facility] [place] Last Admin: 06/30/25 20:29 Dose: 300 mg Diphenhydramine HCl (Diphenhydramine Hcl 25 Mg Capsule) 50 mg PO BEDTIME PRN PRN Reason: Insomnia Docusate Sodium (Docusate Sodium 100 Mg Capsule) 100 mg PO BID [facility] [place] Last Admin: 06/30/25 20:31 Dose: Not Given Famotidine (Famotidine 20 Mg Tablet) 20 mg PO BID [facility] [place] Last Admin: 06/30/25 20:30 Dose: 20 mg Folic Acid (Folic Acid 1 Mg Tablet) 1 mg PO DAILY [facility] [place] Last Admin: 06/30/25 08:41 Dose: 1 mg Hydroxyzine HCl (Hydroxyzine Hcl 50 Mg Tablet) 50 mg PO Q8H PRN PRN Reason: Anxiety Last Admin: 06/30/25 12:21 Dose: 50 mg Lactated Ringer's (Lr) 500 mls @ 100 mls/hr IV .Q5H [facility] [place] Stop: 07/01/25 12:14 Lactated Ringer's (Lr) 1,000 mls @ 100 mls/hr IV .Q10H [facility] Stop: 07/01/25 17:14 Last Infusion: 07/01/25 09:01 Dose: Infused Ibuprofen (Ibuprofen 800 Mg Tablet) 800 mg PO Q8H PRN PRN Reason: moderate pain Last Admin: 06/30/25 12:21 Dose: 800 mg Lactase (Lactase Tablet) 3 tab PO TIDWM [facility] [place] Last Admin: 06/30/25 17:05 Dose: 3 tab Magnesium Hydroxide (Milk Of Magnesia 30 Ml Oral.Susp) 30 ml PO DAILY PRN PRN Reason: Constipation [facility] ([facility] 400 [facility] Admin: 06/30/25 17:05 Dose: 400 mg Metformin HCl (Metformin Hcl 500 Mg Tablet) 500 mg PO DAILY [facility] Last Admin: 06/30/25 08:41 Dose: 500 mg Methocarbamol (Methocarbamol 500 Mg Tablet) 500 mg PO TID PRN PRN Reason: severe pain Last Admin: 06/29/25 12:01 Dose: 500 mg Metoprolol Tartrate (Metoprolol Tartrate 50 Mg Tablet) 50 mg PO BID [facility]; Protocol Last Admin: 06/30/25 20:30 Dose: 50 mg Multivitamins/Vitamin C (Multivitamin Tablet) 1 tab PO DAILY [facility] [place] Last Admin: 06/30/25 08:41 Dose: 1 tab Naloxone HCl (Naloxone Hcl 0.4 Mg/Ml Vial) 0.04 mg IVPUSH Q5M PRN PRN Reason: Excessive sedation or RR < 8 Naloxone HCl (Naloxone Hcl 0.4 Mg/Ml Vial) 0.04 mg IVPUSH Q5M PRN PRN Reason: Excessive sedation or RR < 8 Nicotine Polacrilex (Nicotine Polacrilex 2 Mg Gum) 2 mg BUCCAL Q2H PRN PRN Reason: Nicotine Cravings Nitroglycerin (Nitroglycerin 0.4 Mg Tab.Subl) 0.4 mg SUBLINGUAL Q5MX3 PRN PRN Reason: chest pain Polyethylene Glycol (Polyethylene Glycol 3350 17 Gm Powd.Pack) 17 gm PO DAILY PRN PRN Reason: Constipation Last Admin: 06/22/25 14:56 Dose: 17 gm Sertraline HCl (Sertraline Hcl 100 Mg Tablet) 100 mg PO DAILY [facility] [place] Last Admin: 06/30/25 08:41 Dose: 100 mg Simethicone (Simethicone 80 Mg Tab.Chew) 80 mg PO QIDWMHS [facility] Last Admin: 06/30/25 20:29 Dose: 80 mg Sucralfate (Sucralfate 1 Gm Tablet) 1 gm PO QIDACHS [facility] [place] Last Admin: 06/30/25 20:28 Dose: 1 gm Tamsulosin HCl (Tamsulosin Hcl 0.4 Mg Capsule) 0.8 mg PO BEDTIME [facility] [place] Last Admin: 06/30/25 20:28 Dose: 0.8 mg Trazodone HCl (Trazodone Hcl 50 Mg Tablet) 150 mg PO BEDTIME [facility] [place] Last Admin: 06/30/25 20:29 Dose: 150 mg Trazodone HCl (Trazodone Hcl 50 Mg Tablet) 50 mg PO BEDTIME PRN PRN Reason: Insomnia Venlafaxine HCl (Venlafaxine Hcl Er 37.5 Mg Cap.Er.24h) 37.5 mg PO DAILY [facility] [place] Last Admin: 06/30/25 08:41 Dose: 37.5 mg Vitamin D (Cholecalciferol (Vitamin D3) 25 Mcg Tablet) 50 mcg PO DAILY [facility] [place] Last Admin: 06/30/25 08:40 Dose: 50 mcg Home Medications ?Medication ?Instructions ?Recorded ?Confirmed ?Last Taken ?Type aspirin 81 mg tablet,delayed 81 mg PO DAILY 06/09/25 1 06/08/25 History release atorvastatin 40 mg tablet 40 mg PO BEDTIME cholesterol 06/09/25 06/09/25 06/08/25 History calcium 500 mg (as 2 tab PO BID 06/09/25 Unknown History carbonate)-vitamin D3 5 mcg (200 unit) tablet (Oyster Shell Calcium-Vitamin D3) cholecalciferol (vitamin D3) 50 50 mcg PO DAILY 06/09/25 06/08/25 History mcg (2,000 unit) capsule clozapine 100 mg tablet 300 mg PO BEDTIME 06/09/25 1 06/08/25 History clozapine 50 mg tablet 50 mg PO BEDTIME 06/09/2506/08/25 History dextroamphetamine-amphetamine ER 2 cap PO DAILY 06/09/25 06/08/25 History 10 mg 24hr capsule,extend release docusate sodium 100 mg capsule 100 mg PO BID 06/09/25 06/09/25 06/08/25 History duloxetine 60 mg capsule,delayed 60 mg PO DAILY 06/09/25 06/08/25 History release famotidine 20 mg tablet 20 mg PO BID acid reflux 06/09/25 Unknown History guanfacine 1 mg tablet,extended 1 mg PO DAILY 06/09/25 06/09/25 Unknown History release 24 hr ibuprofen 800 mg tablet 800 mg PO Q8H PRN pain 06/0906/09/25 Unknown History lorazepam 1 mg tablet 1 mg PO BEDTIME PRN insomnia 06/09/25 06/09/25 06/08/25 History metoprolol succinate 25 mg 75 mg PO DAILY 06/09/25 Unknown History tablet,extended release 24 hr multivitamin with folic acid 400 1 tab PO DAILY 06/09/25 06/08/25 History mcg tablet (Daily-Avtar (with folic acid)) sertraline 100 mg tablet 100 mg PO DAILY 06/09/2506/08/25 History sucralfate 1 gram tablet 1 g PO QID 06/09/25 06/09/25 Unknown History tamsulosin 0.4 mg capsule 0.4 mg PO BEDTIME 06/09/25 1 06/03/25 History trazodone 100 mg tablet 100 mg PO BEDTIME 06/09/25 1 06/08/25 History venlafaxine 75 mg capsule,extended 75 mg PO QAM 06/09/25 06/08/25 History release 24 hr vitamin B complex 1 cap PO DAILY 06/09/25 10/02/1606/08/25 History Physical Exam 2 Vital Signs: Vital Signs: Last Vital Signs Temp 97.8 F 07/01/25 09:03 Pulse 78 07/01/25 09:03 Resp 16 07/01/25 09:03 BP 129/76 07/01/25 09:03 Pulse Ox 94 07/01/25 09:03 O2 Del Method Room Air 07/01/25 09:03 O2 Flow Rate 0 07/01/25 08:50 BMI result Body Mass Index 27.8 Results Labs 06/27/25 11:19 06/27/25 11:19 Labs: Urine 06/21/25 Range/Units 10:40 Urine Color Yellow Urine Appearance Clear Urine pH 7.0 (5.0-9.0) Ur Specific [place] 1.015 (1.005-1.025) Urine Protein Negative (Neg-Trace) mg/dL Urine Glucose (UA) Negative (Negative) mg/dL All other labs normal. Assessment and Plan (1) Coronary artery disease: Status: Acute Plan mac anesthesia Procedures Date of Service Date of Service: 07/01/25
--- NOTE | 2025-07-01 09:21 | HO.PSYCHPN ---
Subjective Subjective Date of Service: 07/01/25 Reason For Visit: SI Subjective Notes: Conditional Voluntary Interim History: Chart reviewed, case discussed with team Pt completed ECT #7 this am. T/W performed his ECT, which went well, aside from some postictal agitation in recovery that was tx'd with propofol and versed. T/W met w/ pt later in the am after he returned to the unit. He was asleep but easily rousable. Reported feeling tired but denied any other SE Denied any other concerns 24 hr orthostatics were completed earlier this week and technically negative but SBP did decrease from 117 to 104 on 06/29 after rising from sitting to standing R knee xray done on 06/28- no acute changes. signif for mild OA and osteopenia Medication Compliance: Yes Attending Groups: No Mental Status Exam Mental Status Exam Narrative: Appearance: lying in bed. good eye contact. Attitude: Cooperative. Speech: Fluent and wnl in regard to volume, tone, prosody Motor activity: Calm Mood:tired Affect: appropriate, reactive Thought process: goal directed and without evidence of formal thought disorder Thought content: no report of SI/violent ideation Perception: does not appear to respond to internal stimuli Cognition grossly intact Insight: intact Judgment: intact Diagnostics Vital Signs (24Hr): Vital Signs - 24 hr 06/30/25 16:37 06/30/25 20:00 07/01/25 06:31 Temperature 97.7 F 97.8 F Pulse Rate 68 80 80 Respiratory Rate 16 14 Blood Pressure 123/70 127/69 119/60 Pulse Oximetry 98 95 Oxygen Delivery Method Room Air Oxygen Flow Rate 07/01/25 06:49 07/01/25 08:20 07/01/25 08:25 Temperature 97 F 97.4 F Pulse Rate 81 88 84 Respiratory Rate 13 30 H 15 Blood Pressure 125/80 166/96 H 144/70 H Pulse Oximetry 96 94 100 Oxygen Delivery Method Room Air Nasal Cannula with ETCO2 Nasal Cannula with ETCO2 Oxygen Flow Rate 5 5 07/01/25 08:30 07/01/25 08:35 07/01/25 08:50 Temperature Pulse Rate 86 83 80 Respiratory Rate 13 12 14 Blood Pressure 144/70 H 139/84 145/78 H Pulse Oximetry 98 95 95 Oxygen Delivery Method Room Air Nasal Cannula with ETCO2 Room Air Nasal Cannula with ETCO2 Room Air Oxygen Flow Rate 0 0 0 07/01/25 09:03 Temperature 97.8 F Pulse Rate 78 Respiratory Rate 16 Blood Pressure 129/76 Pulse Oximetry 94 Oxygen Delivery Method Room Air Oxygen Flow Rate BMI result Body Mass Index 27.8 Labs 06/27/25 11:19 06/27/25 11:19 Imaging Radiology Impressions: ITS Impressions Chest X-Ray 06/14/25 16:43 IMPRESSION: No evidence for acute disease in the chest. Electronically signed by: Concepcion Delarosa MD 06/14/2025 04:54 PM EDT RP Head CT 06/27/25 10:09 IMPRESSION: No acute fracture, bony calvarium. No acute intracranial hemorrhage. Atherosclerosis disease, intracranial. Electronically signed by: Pino Ponce MD 06/27/2025 10:44 AM EST RP R knee x-ray 06/28/25 Reason for Exam: Fall CLINICAL HISTORY: Fall 2 view right knee Comparison: None provided Findings: Mild narrowing of the medial knee compartment with marginal heterotopic bone formation. Mild osteopenia. No significant loss of joint space, osteophytes, or erosions. No joint effusion. No radiopaque foreign body. Mild arterial calcifications present. IMPRESSION: 1. Mild medial compartment osteoarthritis of the right knee. 2. Mild osteopenia. 3. No acute osseous injury. This document has been electronically Medications Medications Current Medications Acetaminophen (Acetaminophen 325 Mg Tablet) 975 mg PO BID PRN PRN Reason: Pain, Moderate(Pain Scale 4-6) Last Admin: 06/30/25 21:58 Dose: 975 mg Al Hydroxide/Mg Hydroxide (Magnesium Hydrox/Alum Hydrox 30 Ml Oral.Susp) 30 ml PO Q6H PRN PRN Reason: Heartburn/Nausea Last Admin: 06/30/25 12:21 Dose: 30 ml Aspirin (Aspirin Enteric Coated 81 Mg Tablet.Dr) 81 mg PO DAILY [facility] Last Admin: 06/30/25 08:41 Dose: 81 mg Atorvastatin Calcium (Atorvastatin Calcium 40 Mg Tablet) 40 mg PO BEDTIME [facility] Last Admin: 06/30/25 20:31 Dose: 40 mg Budesonide (Budesonide 180 Mcg Aer.Pow.Ba) 2 puff INHALE RDAILY [facility] Last Admin: 06/30/25 08:14 Dose: Not Given Calcium Carbonate/Cholecalciferol (Calcium + Vitamin D 250 Mg Tablet) 500 mg PO BID [facility] Last Admin: 06/30/25 20:30 Dose: 500 mg Clozapine (Clozapine 100 Mg Tablet) 300 mg PO BEDTIME [facility] Last Admin: 06/30/25 20:29 Dose: 300 mg Diphenhydramine HCl (Diphenhydramine Hcl 25 Mg Capsule) 50 mg PO BEDTIME PRN PRN Reason: Insomnia Docusate Sodium (Docusate Sodium 100 Mg Capsule) 100 mg PO BID [facility] Last Admin: 06/30/25 20:31 Dose: Not Given Famotidine (Famotidine 20 Mg Tablet) 20 mg PO BID [facility] Last Admin: 06/30/25 20:30 Dose: 20 mg Folic Acid (Folic Acid 1 Mg Tablet) 1 mg PO DAILY [facility] Last Admin: 06/30/25 08:41 Dose: 1 mg Hydroxyzine HCl (Hydroxyzine Hcl 50 Mg Tablet) 50 mg PO Q8H PRN PRN Reason: Anxiety Last Admin: 06/30/25 12:21 Dose: 50 mg Lactated Ringer's (Lr) 500 mls @ 100 mls/hr IV .Q5H [facility] Stop: 07/01/25 12:14 Lactated Ringer's (Lr) 1,000 mls @ 100 mls/hr IV .Q10H [facility] Stop: 07/01/25 17:14 Last Infusion: 07/01/25 09:01 Dose: Infused Ibuprofen (Ibuprofen 800 Mg Tablet) 800 mg PO Q8H PRN PRN Reason: moderate pain Last Admin: 06/30/25 12:21 Dose: 800 mg Lactase (Lactase Tablet) 3 tab PO TIDWM [facility] Last Admin: 06/30/25 17:05 Dose: 3 tab Magnesium Hydroxide (Milk Of Magnesia 30 Ml Oral.Susp) 30 ml PO DAILY PRN PRN Reason: Constipation Magnesium Oxide (Magnesium Oxide 400 Mg Tablet) 400 mg PO BIDPC [facility] Last Admin: 06/30/25 17:05 Dose: 400 mg Metformin HCl (Metformin Hcl 500 Mg Tablet) 500 mg PO DAILY [facility] Last Admin: 06/30/25 08:41 Dose: 500 mg Methocarbamol (Methocarbamol 500 Mg Tablet) 500 mg PO TID PRN PRN Reason: severe pain Last Admin: 06/29/25 12:01 Dose: 500 mg Metoprolol Tartrate (Metoprolol Tartrate 50 Mg Tablet) 50 mg PO BID [facility]; Protocol Last Admin: 06/30/25 20:30 Dose: 50 mg Multivitamins/Vitamin C (Multivitamin Tablet) 1 tab PO DAILY [facility] Last Admin: 06/30/25 08:41 Dose: 1 tab Naloxone HCl (Naloxone Hcl 0.4 Mg/Ml Vial) 0.04 mg IVPUSH Q5M PRN PRN Reason: Excessive sedation or RR < 8 Naloxone HCl (Naloxone Hcl 0.4 Mg/Ml Vial) 0.04 mg IVPUSH Q5M PRN PRN Reason: Excessive sedation or RR < 8 Nicotine Polacrilex (Nicotine Polacrilex 2 Mg Gum) 2 mg BUCCAL Q2H PRN PRN Reason: Nicotine Cravings Nitroglycerin (Nitroglycerin 0.4 Mg Tab.Subl) 0.4 mg SUBLINGUAL Q5MX3 PRN PRN Reason: chest pain Polyethylene Glycol (Polyethylene Glycol 3350 17 Gm Powd.Pack) 17 gm PO DAILY PRN PRN Reason: Constipation Last Admin: 06/22/25 14:56 Dose: 17 gm Sertraline HCl (Sertraline Hcl 100 Mg Tablet) 100 mg PO DAILY [facility] Last Admin: 06/30/25 08:41 Dose: 100 mg Simethicone (Simethicone 80 Mg Tab.Chew) 80 mg PO QIDWMHS [facility] Last Admin: 06/30/25 20:29 Dose: 80 mg Sucralfate (Sucralfate 1 Gm Tablet) 1 gm PO QIDACHS [facility] Last Admin: 06/30/25 20:28 Dose: 1 gm Tamsulosin HCl (Tamsulosin Hcl 0.4 Mg Capsule) 0.8 mg PO BEDTIME [facility] Last Admin: 06/30/25 20:28 Dose: 0.8 mg Trazodone HCl (Trazodone Hcl 50 Mg Tablet) 150 mg PO BEDTIME [facility] Last Admin: 06/30/25 20:29 Dose: 150 mg Trazodone HCl (Trazodone Hcl 50 Mg Tablet) 50 mg PO BEDTIME PRN PRN Reason: Insomnia Venlafaxine HCl (Venlafaxine Hcl Er 37.5 Mg Cap.Er.24h) 37.5 mg PO DAILY [facility] Last Admin: 06/30/25 08:41 Dose: 37.5 mg Vitamin D (Cholecalciferol (Vitamin D3) 25 Mcg Tablet) 50 mcg PO DAILY [facility] Last Admin: 06/30/25 08:40 Dose: 50 mcg Allergies Allergies Allergy/AdvReac Type Severity Reaction Status Date / Time bupropion Allergy Rash Verified 06/09/25 19:07 haloperidol (From Haldol) Allergy Rash Verified 06/09/25 19:07 lactose Allergy Gastrointestinal Verified 06/09/25 19:07 Upset peanut Allergy Anaphylaxis Verified 06/09/25 19:07 ziprasidone Allergy Rash Verified 06/09/25 19:07 Assessment & Plan Assessment & Plan (1) Schizoaffective disorder, bipolar type: Status: Acute Code(s): F25.0 - Schizoaffective disorder, bipolar type (2) PTSD (post-traumatic stress disorder): Status: Acute Code(s): F43.10 - Post-traumatic stress disorder, unspecified (3) Coronary artery disease: Status: Acute Code(s): I25.10 - Atherosclerotic heart disease of [place] coronary artery without angina pectoris (4) Right knee pain: Status: Acute Code(s): M25.561 - Pain in right knee Plan Mr. Brink is a 59 y/o DWM with documented h/o schizophrenia, bipolar d/o, depression, PTSD, KASSIE, sleep apnea, HTN, CAD, hyponatremia, peripheral neuropathy, 3 NV's s/p CABG, unsteady gait, and type II DM who was brought to the [facility] ED due to AH and SI. He was transferred to [facility] for tx of severe depression, SI and psychotic sx. Plan: Admitted to for safety and stabilization Legal status- CV Admission medical consult ordered 5 minute safety checks due to fall risk. Uses a [employer] Meds- Continue current medications from care home list for now: Clozaril 50 mg qhs Clozaril 300 mg qhs for now (grp home list says 'bid at hs' and external med rec shows 300 mg qhs) Effexor XR 75 mg qam *per external med rec, it looks like pt is cross titrating from venlafaxine to sertraline, was previously on 225 mg qd. Will continue cross titration after clarifying when the doses were last adjusted diphenhydramine 50 mg qhs prn for insomna hydroxyzine 50 mg q 8 hrs prn for anxiety sertraline 100 mg qd trazodone 100 mg qhs acetaminophen 975 mg bid ASA 81 mg qam budesonide-formoterol 2 inhalations qd Calcium-Vit D 500mg-5 mcg tabs, 2 tabs po bid docusate 100 mg bid folic acid 1 mg qam ibuprofen 800 mg q 8 hrs prn for pain lactase 9000 unit tablet tid magnesium oxide 400 mg bid metformin 500 mg qam methocarbamol 500 mg q 8 hrs for muscle pain metoprolol 50 mg bid MVI qd nitroglycerin 0.4 mg SL q 5 min prn for chest pain u pt 3 doses simethicone 80 mg 4x/day after meals and at hs sucralfate 1 g 4x/day before meals tamsulosin 0.8 mg qhs Vit B complex qam Vit D3 50 mcg qam Will consider ECT 06/11: Trial GBP 100 mg TID for anxiety and pain. 06/12: DC Gabapentin. Monitor urinary retention/incontinence. He is on Tamsulosin. Continue current management and treatment plan. 06/13: Will refer to ECT due to inadequate response to multiple psychotropic medication trials including: current regimen- clozapine 350 mg qd, sertraline 100 mg qd, venlafaxine (tapering off, was up to 225 mg qd), trazodone 100 mg qhs Prior med trials: Prozac, Cymbalta, Lamictal, Strattera, Zyprexa, Adderall ER, Invega Sustenna, VPA -Will request hospitalist consult for risk stratification for ECT -Taper venlafaxine to 37.5 mg starting tomorrow 06/14: ECT ordered for tomorrow am. NPO except for meds with sips of water after midnight. Medically cleared for ECT today by Alejandra Dangelo NP ECT risk stratification. Patient without previous problems with anesthesia, has previously undergone ECT RCRI 0 points, no further cardiac workup or treatment indicated at this time. Patient denies any past problems with anesthesia. EKG pending, no evidence of ischemic changes Based on stated PMH, HPI, and physical exam, there are no There are no obvious contraindications to the planned procedure. Patient with moderate risk due to advancing age and history of coronary artery disease. 06/15: Completed ECT #1 today (RUL) and tolerated it well. Will continue current tx plan for now, with ECT #2 scheduled for Fri, 06/17 06/16: Continue current tx plan. ECT #2 scheduled for tomorrow. NPO and ECT orders entered. 06/17: Did well w/ ECT #2. Ordered NPO for ECT #3 on Tuesday 06/19: Laying in bed most of day. Patient continues to report feeling depressed; he reports not sleeping well last night but is not clear for reason. denies SI/HI/VH. +AH telling me I'm going to . Encouraged to leave room. continue tx plan. 06/20: ECT #3 completed today. Endorses ongoing depressed mood without signif improvement. Continue current tx plan. ECT #4 scheduled for 06/22. ECT & NPO orders are entered for 06/22 06/21: Pt is agreeable w/ plan to d/c venlafaxine (seems to have started x-titration to sertraline during one of his inpt admissions). Will titrate standing dose of trazodone to 150 mg qhs. ECT #4 scheduled for tomorrow 06/22: Completed ECT #4. Now off venlafaxine. C/O constipation x 3 days. TW asked pt's nurse to give him MiraLax. Pt denies significant improvement in depression thus far. I explained that it's still early in the ECT series to expect a significant response. Medical necessity for continued inpatient psychiatric treatment: Continuation of ECT series for depression. Unable to engage in outpatient ECT since there are no ECT providing facilities near his care home in [place]. Treatment failure with multiple psychotropic trials and previous positive reponse to ECT 06/23: Pt has noticed subtle improvement in his mood since starting ECT. Endorses some confusion and dissociative sx which could be related to ECT and/or discontinuing the venlafaxine. Will re-start venlafaxine 37.5 mg tomorrow am for more gradual taper to reduce discontinuation sx. Will d/c clozapine 25 mg am dose w/ plan to cross titrate to Seroquel, which was reportedly effective in the past for tx of depression and AH, also since pt has multiple SE from the clozapine without any noticeable benefit. Pt is agreeable w/ this tx plan 06/24: Mood gradually improving, brighter affect today. Will continue current med regimen for now and continue cross-titration over the weekend. ECT #5 done today. #6 scheduled for 06/27: Will start lorazepam 0.5 mg bid for tx of potential venlafaxine discontinuation syndrome +/- EPS. Advised pt to stand up slowly to reduce risk of falls. 06/26: Continue current tx plan. ECT #6 scheduled for tomorrow. NPO orders in 06/27: ECT cx'd after pt had an unwitnessed fall and reported hitting the back of his head. CT head showed no acute changes and EKG was unremarkable. Pt reported blacking out prior to falling, which has reportedly happened at his care home also. He doesn't think any of the recent med changes contributed to the fall. As a precaution, will hold the Seroquel tonight since it was recently added. TW advised pt to sit up on his bed for a few minutes before standing in the morning and then stand up slowly and pt expressed an understanding and agreed. 06/28: Medically cleared by hospitalist to resume ECT. Input much appreciated. NPO orders in, ECT #6 scheduled for tomorrow. Pt c/o R knee pain after the fall Orthostatics ordered q 8 hrs x 24 hrs by hospitalist R knee xray on 06/28: was negative for any acute changes. signif for mild OA/osteopenia 06/29: Completed ECT #6 today. Mood is gradually improving. Will continue current med regimen. ECT #7 scheduled for Friday, 07/01 06/30: Mood is improving. ECT #7 scheduled for tomorrow. NPO order in. Continue current med regimen 07/01: Tolerated ECT #7 well. Orthostatics done earlier this week were neg. Continue current tx plan. ECT#8 scheduled for Friday, 07/04. NPO orders are in Reason for continued inpatient stay Substantial Risk for: med/psych decompensation Time Spent With Patient Time: Total time managing care of this patient today ____ minutes.
[2025-07-01] MEDS: Aspirin Enteric Coated 81 MG TABLET.DR PO (09:34)
[2025-07-01] MEDS: Venlafaxine HCl ER 37.5 MG CAP.ER.24H PO (09:35)
[2025-07-01] MEDS: Calcium + Vitamin D 250 MG TABLET 500 MG PO ×2 (09:35→21:09)
[2025-07-02 08:00] VITALS: BP 112/56; PULSE 85; RESP 16; TEMP 36.5; O2SAT 96
[2025-07-02] MEDS: Venlafaxine HCl ER 37.5 MG CAP.ER.24H PO (08:34)
[2025-07-02] MEDS: Calcium + Vitamin D 250 MG TABLET 500 MG PO ×2 (08:34→20:41)
[2025-07-02 08:35] VITALS: BP 112/56; PULSE 85
[2025-07-02] MEDS: Aspirin Enteric Coated 81 MG TABLET.DR PO (08:40)
[2025-07-02 20:00] VITALS: BP 123/59; PULSE 79; RESP 16; TEMP 36.4; O2SAT 98
[2025-07-02 20:41] VITALS: BP 123/59; PULSE 79
--- NOTE | 2025-07-02 22:55 | HO.PSYCHPN ---
Subjective Subjective Date of Service: 07/02/25 Reason For Visit: SI Subjective Notes: Conditional Voluntary Healthcare Proxy: No Guardianship: No Medical Problems Affecting Mental Status: No Interim History: Medical record and nursing notes reviewed; case discussed during rounds with team/nursing staff, and met with patient for supportive therapy/psychoeducation, as well as medication management. Patient is in bed after lunch, pleasant and cooperative upon approach. Denies SI/SIB/HI/AVH but stating that he hears a little bit voices telling me I am dying . Reports anxiety and depression 03/03. Reports a little bit constipated but having last bowel movement was yesterday. Encourage fluid intake. Patient reports some shakiness twisting hand as side effect of medications. Reports ECTs helpful. Medication Compliance: Yes Side effects from medications: Yes (tremors) Attending Groups: Intermittent Review of Systems Acute medical concerns: No Medical Review of Systems: unchanged Review of Systems Review of Systems Constitutional: Denies fatigue and Denies fever(s) Cardiovascular: Denies chest pain and Denies dyspnea Respiratory: Denies dyspnea Gastrointestinal: Denies abdominal pain Psychiatric: denies suicidal ideation Endocrine: Denies fatigue Yes all other systems are reviewed and are negative Mental Status Exam Mental Status Exam Narrative: Appearance: lying in bed. good eye contact. Wearing casual attire. Having walker at bedside. Attitude: Cooperative. Speech: Fluent and wnl in regard to volume, tone, prosody Motor activity: Calm Mood:tired Affect: appropriate, reactive Thought process: goal directed and without evidence of formal thought disorder Thought content: no report of SI/violent ideation Perception: does not appear to respond to internal stimuli Cognition grossly intact Insight: intact Judgment: intact Diagnostics Vital Signs (24Hr): Vital Signs - 24 hr 07/02/25 08:00 07/02/25 08:35 07/02/25 20:00 Temperature 97.7 F 97.5 F Pulse Rate 85 85 79 Respiratory Rate 16 16 Blood Pressure 112/56 L 112/56 L 123/59 L Pulse Oximetry 96 98 Oxygen Delivery Method Room Air Room Air 07/02/25 20:41 Temperature Pulse Rate 79 Respiratory Rate Blood Pressure 123/59 L Pulse Oximetry Oxygen Delivery Method BMI result Body Mass Index 27.8 Labs 06/27/25 11:19 06/27/25 11:19 Imaging Radiology Impressions: ITS Impressions Chest X-Ray 06/14/25 16:43 IMPRESSION: No evidence for acute disease in the chest. Electronically signed by: Concepcion Delarosa MD 06/14/2025 04:54 PM EDT RP Head CT 06/27/25 10:09 IMPRESSION: No acute fracture, bony calvarium. No acute intracranial hemorrhage. Atherosclerosis disease, intracranial. Electronically signed by: Pino Ponce MD 06/27/2025 10:44 AM EST RP Medications Medications Current Medications Acetaminophen (Acetaminophen 325 Mg Tablet) 975 mg PO BID PRN PRN Reason: Pain, Moderate(Pain Scale 4-6) Last Admin: 07/02/25 17:15 Dose: 975 mg Al Hydroxide/Mg Hydroxide (Magnesium Hydrox/Alum Hydrox 30 Ml Oral.Susp) 30 ml PO Q6H PRN PRN Reason: Heartburn/Nausea Last Admin: 06/30/25 12:21 Dose: 30 ml Aspirin (Aspirin Enteric Coated 81 Mg Tablet.Dr) 81 mg PO DAILY [facility] Last Admin: 07/02/25 08:40 Dose: 81 mg Atorvastatin Calcium (Atorvastatin Calcium 40 Mg Tablet) 40 mg PO BEDTIME [facility] Last Admin: 07/02/25 20:42 Dose: 40 mg Budesonide (Budesonide 180 Mcg Aer.Pow.Ba) 2 puff INHALE RDAILY [facility] Last Admin: 07/02/25 08:39 Dose: Not Given Calcium Carbonate/Cholecalciferol (Calcium + Vitamin D 250 Mg Tablet) 500 mg PO BID [facility] Last Admin: 07/02/25 20:41 Dose: 500 mg Clozapine (Clozapine 100 Mg Tablet) 300 mg PO BEDTIME [facility] Last Admin: 07/02/25 20:41 Dose: 300 mg Diphenhydramine HCl (Diphenhydramine Hcl 25 Mg Capsule) 50 mg PO BEDTIME PRN PRN Reason: Insomnia Docusate Sodium (Docusate Sodium 100 Mg Capsule) 100 mg PO BID [facility] Last Admin: 07/02/25 20:42 Dose: 100 mg Famotidine (Famotidine 20 Mg Tablet) 20 mg PO BID [facility] Last Admin: 07/02/25 20:41 Dose: 20 mg Folic Acid (Folic Acid 1 Mg Tablet) 1 mg PO DAILY [facility] Last Admin: 07/02/25 08:34 Dose: 1 mg Hydroxyzine HCl (Hydroxyzine Hcl 50 Mg Tablet) 50 mg PO Q8H PRN PRN Reason: Anxiety Last Admin: 07/01/25 15:34 Dose: 50 mg Ibuprofen (Ibuprofen 800 Mg Tablet) 800 mg PO Q8H PRN PRN Reason: moderate pain Last Admin: 07/02/25 16:00 Dose: 800 mg Lactase (Lactase Tablet) 3 tab PO TIDWM [facility] Last Admin: 07/02/25 17:11 Dose: 3 tab Magnesium Hydroxide (Milk Of Magnesia 30 Ml Oral.Susp) 30 ml PO DAILY PRN PRN Reason: Constipation [facility] ([facility] 400 Mg [facility]t) [facility] Last Admin: 07/02/25 17:12 Dose: 400 mg Metformin HCl (Metformin Hcl 500 Mg Tablet) 500 mg PO DAILY [facility] Last Admin: 07/02/25 08:34 Dose: 500 mg Methocarbamol (Methocarbamol 500 Mg Tablet) 500 mg PO TID PRN PRN Reason: severe pain Last Admin: 07/02/25 12:07 Dose: 500 mg Metoprolol Tartrate (Metoprolol Tartrate 50 Mg Tablet) 50 mg PO BID [facility]; Protocol Last Admin: 07/02/25 20:41 Dose: 50 mg Multivitamins/Vitamin C (Multivitamin Tablet) 1 tab PO DAILY [facility] Last Admin: 07/02/25 08:35 Dose: 1 tab Naloxone HCl (Naloxone Hcl 0.4 Mg/Ml Vial) 0.04 mg IVPUSH Q5M PRN PRN Reason: Excessive sedation or RR < 8 Naloxone HCl (Naloxone Hcl 0.4 Mg/Ml Vial) 0.04 mg IVPUSH Q5M PRN PRN Reason: Excessive sedation or RR < 8 Nicotine Polacrilex (Nicotine Polacrilex 2 Mg Gum) 2 mg BUCCAL Q2H PRN PRN Reason: Nicotine Cravings Nitroglycerin (Nitroglycerin 0.4 Mg Tab.Subl) 0.4 mg SUBLINGUAL Q5MX3 PRN PRN Reason: chest pain Polyethylene Glycol (Polyethylene Glycol 3350 17 Gm Powd.Pack) 17 gm PO DAILY PRN PRN Reason: Constipation Last Admin: 06/22/25 14:56 Dose: 17 gm Sertraline HCl (Sertraline Hcl 100 Mg Tablet) 100 mg PO DAILY [facility] Last Admin: 07/02/25 08:35 Dose: 100 mg Simethicone (Simethicone 80 Mg Tab.Chew) 80 mg PO QIDWMHS [facility] Last Admin: 07/02/25 20:39 Dose: 80 mg Sucralfate (Sucralfate 1 Gm Tablet) 1 gm PO QIDACHS [facility] Last Admin: 07/02/25 20:42 Dose: 1 gm Tamsulosin HCl (Tamsulosin Hcl 0.4 Mg Capsule) 0.8 mg PO BEDTIME [facility] Last Admin: 07/02/25 20:40 Dose: 0.8 mg Trazodone HCl (Trazodone Hcl 50 Mg Tablet) 150 mg PO BEDTIME [facility] Last Admin: 07/02/25 20:40 Dose: 150 mg Trazodone HCl (Trazodone Hcl 50 Mg Tablet) 50 mg PO BEDTIME PRN PRN Reason: Insomnia Venlafaxine HCl (Venlafaxine Hcl Er 37.5 Mg Cap.Er.24h) 37.5 mg PO DAILY [facility] Last Admin: 07/02/25 08:34 Dose: 37.5 mg Vitamin D (Cholecalciferol (Vitamin D3) 25 Mcg Tablet) 50 mcg PO DAILY [facility] Last Admin: 07/02/25 08:34 Dose: 50 mcg Allergies Allergies Allergy/AdvReac Type Severity Reaction Status Date / Time bupropion Allergy Rash Verified 06/09/25 19:07 haloperidol (From Haldol) Allergy Rash Verified 06/09/25 19:07 lactose Allergy Gastrointestinal Verified 06/09/25 19:07 Upset peanut Allergy Anaphylaxis Verified 06/09/25 19:07 ziprasidone Allergy Rash Verified 06/09/25 19:07 Assessment & Plan Assessment & Plan (1) Schizoaffective disorder, bipolar type: Status: Acute Code(s): F25.0 - Schizoaffective disorder, bipolar type (2) PTSD (post-traumatic stress disorder): Status: Acute Code(s): F43.10 - Post-traumatic stress disorder, unspecified (3) Coronary artery disease: Status: Acute Code(s): I25.10 - Atherosclerotic heart disease of [place] coronary artery without angina pectoris (4) Right knee pain: Status: Acute Code(s): M25.561 - Pain in right knee Plan Mr. Brink is a 59 y/o DWM with documented h/o schizophrenia, bipolar d/o, depression, PTSD, KASSIE, sleep apnea, HTN, CAD, hyponatremia, peripheral neuropathy, 3 [place]'s s/p CABG, unsteady gait, and type II DM who was brought to the [facility] ED due to AH and SI. He was transferred to [facility] for tx of severe depression, SI and psychotic sx. Plan: Admitted to [facility] for safety and stabilization Legal status- CV Admission medical consult ordered 5 minute safety checks due to fall risk. Uses a walker Meds- Continue current medications from fdc list for now: Clozaril 50 mg qhs Clozaril 300 mg qhs for now (grp home list says 'bid at hs' and external med rec shows 300 mg qhs) Effexor XR 75 mg qam *per external med rec, it looks like pt is cross titrating from venlafaxine to sertraline, was previously on 225 mg qd. Will continue cross titration after clarifying when the doses were last adjusted diphenhydramine 50 mg qhs prn for [place] hydroxyzine 50 mg q 8 hrs prn for anxiety sertraline 100 mg qd trazodone 100 mg qhs acetaminophen 975 mg bid ASA 81 mg qam budesonide-formoterol 2 inhalations qd Calcium-Vit D 500mg-5 mcg tabs, 2 tabs po bid docusate 100 mg bid folic acid 1 mg qam ibuprofen 800 mg q 8 hrs prn for pain lactase 9000 unit tablet tid magnesium oxide 400 mg bid metformin 500 mg qam methocarbamol 500 mg q 8 hrs for muscle pain metoprolol 50 mg bid MVI qd nitroglycerin 0.4 mg SL q 5 min prn for chest pain u pt 3 doses simethicone 80 mg 4x/day after meals and at hs sucralfate 1 g 4x/day before meals tamsulosin 0.8 mg qhs Vit B complex qam Vit D3 50 mcg qam Will consider ECT 06/11: Trial GBP 100 mg TID for anxiety and pain. 06/12: DC Gabapentin. Monitor urinary retention/incontinence. He is on Tamsulosin. Continue current management and treatment plan. 06/13: Will refer to ECT due to inadequate response to multiple psychotropic medication trials including: current regimen- clozapine 350 mg qd, sertraline 100 mg qd, venlafaxine (tapering off, was up to 225 mg qd), trazodone 100 mg qhs Prior med trials: Prozac, Cymbalta, Lamictal, Strattera, Zyprexa, Adderall ER, Invega Sustenna, VPA -Will request hospitalist consult for risk stratification for ECT -Taper venlafaxine to 37.5 mg starting tomorrow 06/14: ECT ordered for tomorrow am. NPO except for meds with sips of water after midnight. Medically cleared for ECT today by Alejandra Dangelo NP ECT risk stratification. Patient without previous problems with anesthesia, has previously undergone ECT RCRI 0 points, no further cardiac workup or treatment indicated at this time. Patient denies any past problems with anesthesia. EKG pending, no evidence of ischemic changes Based on stated PMH, HPI, and physical exam, there are no There are no obvious contraindications to the planned procedure. Patient with moderate risk due to advancing age and history of coronary artery disease. 06/15: Completed ECT #1 today (RUL) and tolerated it well. Will continue current tx plan for now, with ECT #2 scheduled for 06/17: Continue current tx plan. ECT #2 scheduled for tomorrow. NPO and ECT orders entered. 06/17: Did well w/ ECT #2. Ordered NPO for ECT #3 on Tuesday 06/19: Laying in bed most of day. Patient continues to report feeling depressed; he reports not sleeping well last night but is not clear for reason. denies SI/HI/VH. +AH telling me I'm going to . Encouraged to leave room. continue tx plan. 06/20: ECT #3 completed today. Endorses ongoing depressed mood without signif improvement. Continue current tx plan. ECT #4 scheduled for 06/22. ECT & NPO orders are entered for 06/22 06/21: Pt is agreeable w/ plan to d/c venlafaxine (seems to have started x-titration to sertraline during one of his inpt admissions). Will titrate standing dose of trazodone to 150 mg qhs. ECT #4 scheduled for tomorrow 06/22: Completed ECT #4. Now off venlafaxine. C/O constipation x 3 days. TW asked pt's nurse to give him MiraLax. Pt denies significant improvement in depression thus far. I explained that it's still early in the ECT series to expect a significant response. Medical necessity for continued inpatient psychiatric treatment: Continuation of ECT series for depression. Unable to engage in outpatient ECT since there are no ECT providing facilities near his fdc in [place]. Treatment failure with multiple psychotropic trials and previous positive reponse to ECT 06/23: Pt has noticed subtle improvement in his mood since starting ECT. Endorses some confusion and dissociative sx which could be related to ECT and/or discontinuing the venlafaxine. Will re-start venlafaxine 37.5 mg tomorrow am for more gradual taper to reduce discontinuation sx. Will d/c clozapine 25 mg am dose w/ plan to cross titrate to Seroquel, which was reportedly effective in the past for tx of depression and AH, also since pt has multiple SE from the clozapine without any noticeable benefit. Pt is agreeable w/ this tx plan 06/24: Mood gradually improving, brighter affect today. Will continue current med regimen for now and continue cross-titration over the weekend. ECT #5 done today. #6 scheduled for Fri, 06/27 06/25: Will start lorazepam 0.5 mg bid for tx of potential venlafaxine discontinuation syndrome +/- EPS. Advised pt to stand up slowly to reduce risk of falls. 06/26: Continue current tx plan. ECT #6 scheduled for tomorrow. NPO orders in 06/27: ECT cx'd after pt had an unwitnessed fall and reported hitting the back of his head. CT head showed no acute changes and EKG was unremarkable. Pt reported blacking out prior to falling, which has reportedly happened at his fdc also. He doesn't think any of the recent med changes contributed to the fall. As a precaution, will hold the Seroquel tonight since it was recently added. TW advised pt to sit up on his bed for a few minutes before standing in the morning and then stand up slowly and pt expressed an understanding and agreed. 06/28: Medically cleared by hospitalist to resume ECT. Input much appreciated. NPO orders in, ECT #6 scheduled for tomorrow. Pt c/o R knee pain after the fall Orthostatics ordered q 8 hrs x 24 hrs by hospitalist R knee xray on 06/28: was negative for any acute changes. signif for mild OA/osteopenia 06/29: Completed ECT #6 today. Mood is gradually improving. Will continue current med regimen. ECT #7 scheduled for Friday, 07/01 06/30: Mood is improving. ECT #7 scheduled for tomorrow. NPO order in. Continue current med regimen 07/01: Tolerated ECT #7 well. Orthostatics done earlier this week were neg. Continue current tx plan. ECT#8 scheduled for Friday, 07/04. NPO orders are in 07/02/25: Patient is in bed after lunch, pleasant and cooperative upon approach. Denies SI/SIB/HI/AVH but stating that he hears a little bit voices telling me I am dying . Reports anxiety and depression 03/03. Reports a little bit constipated but having last bowel movement was yesterday. Encourage fluid intake. Patient reports some shakiness twisting hand as side effect of medications. Reports ECTs helpful. Patient educated on: diagnosis, medication risk/benefits and therapeutic strategies Informed Consent: understands and further education needed Reason for continued inpatient stay Substantial Risk for: med/psych decompensation Time Spent With Patient Time: Total time managing care of this patient today ____ minutes.
[2025-07-03 08:00] VITALS: BP 110/56; PULSE 86; RESP 14; TEMP 36.2; O2SAT 95
[2025-07-03] MEDS: Calcium + Vitamin D 250 MG TABLET 500 MG PO ×2 (09:50→20:15)
[2025-07-03 09:51] VITALS: BP 112/56; PULSE 108
[2025-07-03] MEDS: Aspirin Enteric Coated 81 MG TABLET.DR PO (09:51)
[2025-07-03] MEDS: Venlafaxine HCl ER 37.5 MG CAP.ER.24H PO (09:51)
[2025-07-03 20:00] VITALS: BP 98/62; PULSE 84; RESP 16; TEMP 36.5; O2SAT 96
[2025-07-03 20:15] VITALS: BP 98/62; PULSE 84
--- NOTE | 2025-07-03 20:33 | HO.PSYCHPN ---
Subjective Subjective Date of Service: 07/03/25 Reason For Visit: SI Subjective Notes: Conditional Voluntary Medical Problems Affecting Mental Status: No Interim History: Medical record and nursing notes reviewed; case discussed during rounds with team/nursing staff, and met with patient for supportive therapy/psychoeducation, as well as medication management. Patient spent most of the morning in bed, calm, pleasant and cooperative. Continue to report hand shaking and muscle twisting. Denies voices , denies SI/SIB/HI/VH. Report anxiety and depression a 03/03. Patient to have ECT tomorrow. Patient compliant with meds and slept for 8 hours per nursing. Medication Compliance: Yes Side effects from medications: Yes (Shaky, tremor, and muscle twisting. ) Attending Groups: No Review of Systems Acute medical concerns: No Medical Review of Systems: unchanged Review of Systems Review of Systems Constitutional: Denies fatigue and Denies fever(s) Cardiovascular: Denies chest pain and Denies dyspnea Respiratory: Denies dyspnea Gastrointestinal: Denies abdominal pain Psychiatric: denies suicidal ideation Endocrine: Denies fatigue Yes all other systems are reviewed and are negative Mental Status Exam Mental Status Exam Narrative: Appearance: lying in bed. good eye contact. Wearing casual attire. Having walker at bedside. Attitude: Cooperative. Speech: Fluent and wnl in regard to volume, tone, prosody Motor activity: Calm Mood:tired Affect: appropriate, reactive Thought process: goal directed and without evidence of formal thought disorder Thought content: no report of SI/violent ideation Perception: does not appear to respond to internal stimuli Cognition grossly intact Insight: intact Judgment: intact Diagnostics Vital Signs (24Hr): Vital Signs - 24 hr 07/02/25 20:41 07/03/25 08:00 07/03/25 09:51 Temperature 97.2 F Pulse Rate 79 86 108 H Respiratory Rate 14 Blood Pressure 123/59 L 110/56 L 112/56 L Pulse Oximetry 95 Oxygen Delivery Method Room Air 07/03/25 20:15 Temperature Pulse Rate 84 Respiratory Rate Blood Pressure 98/62 Pulse Oximetry Oxygen Delivery Method BMI result Body Mass Index 27.8 Labs 06/27/25 11:19 06/27/25 11:19 Imaging Radiology Impressions: ITS Impressions Chest X-Ray 06/14/25 16:43 IMPRESSION: No evidence for acute disease in the chest. Electronically signed by: Concepcion Delarosa MD 06/14/2025 04:54 PM EDT RP Head CT 06/27/25 10:09 IMPRESSION: No acute fracture, bony calvarium. No acute intracranial hemorrhage. Atherosclerosis disease, intracranial. Electronically signed by: Pino Ponce MD 06/27/2025 10:44 AM EST RP Medications Medications Current Medications Acetaminophen (Acetaminophen 325 Mg Tablet) 975 mg PO BID PRN PRN Reason: Pain, Moderate(Pain Scale 4-6) Last Admin: 07/02/25 17:15 Dose: 975 mg Al Hydroxide/Mg Hydroxide (Magnesium Hydrox/Alum Hydrox 30 Ml Oral.Susp) 30 ml PO Q6H PRN PRN Reason: Heartburn/Nausea Last Admin: 06/30/25 12:21 Dose: 30 ml Aspirin (Aspirin Enteric Coated 81 Mg Tablet.Dr) 81 mg PO DAILY [facility] Last Admin: 07/03/25 09:51 Dose: 81 mg Atorvastatin Calcium (Atorvastatin Calcium 40 Mg Tablet) 40 mg PO BEDTIME [facility] Last Admin: 07/03/25 20:15 Dose: 40 mg Budesonide (Budesonide 180 Mcg Aer.Pow.Ba) 2 puff INHALE RDAILY [facility] Last Admin: 07/03/25 09:54 Dose: Not Given Calcium Carbonate/Cholecalciferol (Calcium + Vitamin D 250 Mg Tablet) 500 mg PO BID [facility] Last Admin: 07/03/25 20:15 Dose: 500 mg Clozapine (Clozapine 100 Mg Tablet) 300 mg PO BEDTIME [facility] Last Admin: 07/03/25 20:13 Dose: 300 mg Diphenhydramine HCl (Diphenhydramine Hcl 25 Mg Capsule) 50 mg PO BEDTIME PRN PRN Reason: Insomnia Docusate Sodium (Docusate Sodium 100 Mg Capsule) 100 mg PO BID [facility] Last Admin: 07/03/25 20:14 Dose: 100 mg Famotidine (Famotidine 20 Mg Tablet) 20 mg PO BID [facility] Last Admin: 07/03/25 20:15 Dose: 20 mg Folic Acid (Folic Acid 1 Mg Tablet) 1 mg PO DAILY [facility] Last Admin: 07/03/25 09:51 Dose: 1 mg Hydroxyzine HCl (Hydroxyzine Hcl 50 Mg Tablet) 50 mg PO Q8H PRN PRN Reason: Anxiety Last Admin: 07/01/25 15:34 Dose: 50 mg Ibuprofen (Ibuprofen 800 Mg Tablet) 800 mg PO Q8H PRN PRN Reason: moderate pain Last Admin: 07/03/25 17:18 Dose: 800 mg Lactase (Lactase Tablet) 3 tab PO TIDWM [facility] Last Admin: 07/03/25 17:01 Dose: 3 tab Magnesium Hydroxide (Milk Of Magnesia 30 Ml Oral.Susp) 30 ml PO DAILY PRN PRN Reason: Constipation Magnesium Oxide (Magnesium Oxide 400 Mg Tablet) [facility] Last Admin: 07/03/25 17:01 Dose: 400 mg Metformin HCl (Metformin Hcl 500 Mg Tablet) 500 mg PO DAILY [facility] Last Admin: 07/03/25 09:50 Dose: 500 mg Methocarbamol (Methocarbamol 500 Mg Tablet) 500 mg PO TID PRN PRN Reason: severe pain Last Admin: 07/03/25 20:32 Dose: 500 mg Metoprolol Tartrate (Metoprolol Tartrate 50 Mg Tablet) 50 mg PO BID [facility]; Protocol Last Admin: 07/03/25 20:15 Dose: 50 mg Multivitamins/Vitamin C (Multivitamin Tablet) 1 tab PO DAILY [facility] Last Admin: 07/03/25 09:51 Dose: 1 tab Naloxone HCl (Naloxone Hcl 0.4 Mg/Ml Vial) 0.04 mg IVPUSH Q5M PRN PRN Reason: Excessive sedation or RR < 8 Naloxone HCl (Naloxone Hcl 0.4 Mg/Ml Vial) 0.04 mg IVPUSH Q5M PRN PRN Reason: Excessive sedation or RR < 8 Nicotine Polacrilex (Nicotine Polacrilex 2 Mg Gum) 2 mg BUCCAL Q2H PRN PRN Reason: Nicotine Cravings Nitroglycerin (Nitroglycerin 0.4 Mg Tab.Subl) 0.4 mg SUBLINGUAL Q5MX3 PRN PRN Reason: chest pain Polyethylene Glycol (Polyethylene Glycol 3350 17 Gm Powd.Pack) 17 gm PO DAILY PRN PRN Reason: Constipation Last Admin: 06/22/25 14:56 Dose: 17 gm Sertraline HCl (Sertraline Hcl 100 Mg Tablet) 100 mg PO DAILY [facility] Last Admin: 07/03/25 09:51 Dose: 100 mg Simethicone (Simethicone 80 Mg Tab.Chew) 80 mg PO QIDWMHS [facility] Last Admin: 07/03/25 17:01 Dose: 80 mg Sucralfate (Sucralfate 1 Gm Tablet) 1 gm PO QIDACHS [facility] Last Admin: 07/03/25 20:14 Dose: 1 gm Tamsulosin HCl (Tamsulosin Hcl 0.4 Mg Capsule) 0.8 mg PO BEDTIME [facility] Last Admin: 07/03/25 20:14 Dose: 0.8 mg Trazodone HCl (Trazodone Hcl 50 Mg Tablet) 150 mg PO BEDTIME [facility] Last Admin: 07/03/25 20:13 Dose: 150 mg Trazodone HCl (Trazodone Hcl 50 Mg Tablet) 50 mg PO BEDTIME PRN PRN Reason: Insomnia Venlafaxine HCl (Venlafaxine Hcl Er 37.5 Mg Cap.Er.24h) 37.5 mg PO DAILY [facility] Last Admin: 07/03/25 09:51 Dose: 37.5 mg Vitamin D (Cholecalciferol (Vitamin D3) 25 Mcg Tablet) 50 mcg PO DAILY [facility] Last Admin: 07/03/25 09:50 Dose: 50 mcg Allergies Allergies Allergy/AdvReac Type Severity Reaction Status Date / Time bupropion Allergy Rash Verified 06/09/25 19:07 haloperidol (From Haldol) Allergy Rash Verified 06/09/25 19:07 lactose Allergy Gastrointestinal Verified 06/09/25 19:07 Upset peanut Allergy Anaphylaxis Verified 06/09/25 19:07 ziprasidone Allergy Rash Verified 06/09/25 19:07 Assessment & Plan Assessment & Plan (1) Schizoaffective disorder, bipolar type: Status: Acute Code(s): F25.0 - Schizoaffective disorder, bipolar type (2) PTSD (post-traumatic stress disorder): Status: Acute Code(s): F43.10 - Post-traumatic stress disorder, unspecified (3) Coronary artery disease: Status: Acute Code(s): I25.10 - Atherosclerotic heart disease of zuni coronary artery without angina pectoris (4) Right knee pain: Status: Acute Code(s): M25.561 - Pain in right knee Plan Mr. Brink is a 59 y/o DWM with documented h/o schizophrenia, bipolar d/o, depression, PTSD, KASSIE, sleep apnea, HTN, CAD, hyponatremia, peripheral neuropathy, 3 [place]'s s/p CABG, unsteady gait, and type II DM who was brought to the [facility] ED due to AH and SI. He was transferred to [facility] for tx of severe depression, SI and psychotic sx. Plan: Admitted to [facility] for safety and stabilization Legal status- CV Admission medical consult ordered 5 minute safety checks due to fall risk. Uses a walker Meds- Continue current medications from long term list for now: Clozaril 50 mg qhs Clozaril 300 mg qhs for now (grp home list says 'bid at hs' and external med rec shows 300 mg qhs) Effexor XR 75 mg qam *per external med rec, it looks like pt is cross titrating from venlafaxine to sertraline, was previously on 225 mg qd. Will continue cross titration after clarifying when the doses were last adjusted diphenhydramine 50 mg qhs prn for insomna hydroxyzine 50 mg q 8 hrs prn for anxiety sertraline 100 mg qd trazodone 100 mg qhs acetaminophen 975 mg bid ASA 81 mg qam budesonide-formoterol 2 inhalations qd Calcium-Vit D 500mg-5 mcg tabs, 2 tabs po bid docusate 100 mg bid folic acid 1 mg qam ibuprofen 800 mg q 8 hrs prn for pain lactase 9000 unit tablet tid magnesium oxide 400 mg bid metformin 500 mg qam methocarbamol 500 mg q 8 hrs for muscle pain metoprolol 50 mg bid MVI qd nitroglycerin 0.4 mg SL q 5 min prn for chest pain u pt 3 doses simethicone 80 mg 4x/day after meals and at hs sucralfate 1 g 4x/day before meals tamsulosin 0.8 mg qhs Vit B complex qam Vit D3 50 mcg qam Will consider ECT 06/11: Trial GBP 100 mg TID for anxiety and pain. 06/12: DC Gabapentin. Monitor urinary retention/incontinence. He is on Tamsulosin. Continue current management and treatment plan. 06/13: Will refer to ECT due to inadequate response to multiple psychotropic medication trials including: current regimen- clozapine 350 mg qd, sertraline 100 mg qd, venlafaxine (tapering off, was up to 225 mg qd), trazodone 100 mg qhs Prior med trials: Prozac, Cymbalta, Lamictal, Strattera, Zyprexa, Adderall ER, Invega Sustenna, VPA -Will request hospitalist consult for risk stratification for ECT -Taper venlafaxine to 37.5 mg starting tomorrow 06/14: ECT ordered for tomorrow am. NPO except for meds with sips of water after midnight. Medically cleared for ECT today by Alejandra Dangelo NP ECT risk stratification. Patient without previous problems with anesthesia, has previously undergone ECT RCRI 0 points, no further cardiac workup or treatment indicated at this time. Patient denies any past problems with anesthesia. EKG pending, no evidence of ischemic changes Based on stated PMH, HPI, and physical exam, there are no There are no obvious contraindications to the planned procedure. Patient with moderate risk due to advancing age and history of coronary artery disease. 06/15: Completed ECT #1 today (RUL) and tolerated it well. Will continue current tx plan for now, with ECT #2 scheduled for 06/17: Continue current tx plan. ECT #2 scheduled for tomorrow. NPO and ECT orders entered. 06/17: Did well w/ ECT #2. Ordered NPO for ECT #3 on Tuesday 06/19: Laying in bed most of day. Patient continues to report feeling depressed; he reports not sleeping well last night but is not clear for reason. denies SI/HI/VH. +AH telling me I'm going to . Encouraged to leave room. continue tx plan. 06/20: ECT #3 completed today. Endorses ongoing depressed mood without signif improvement. Continue current tx plan. ECT #4 scheduled for 06/22. ECT & NPO orders are entered for 06/22 06/21: Pt is agreeable w/ plan to d/c venlafaxine (seems to have started x-titration to sertraline during one of his inpt admissions). Will titrate standing dose of trazodone to 150 mg qhs. ECT #4 scheduled for tomorrow 06/22: Completed ECT #4. Now off venlafaxine. C/O constipation x 3 days. TW asked pt's nurse to give him MiraLax. Pt denies significant improvement in depression thus far. I explained that it's still early in the ECT series to expect a significant response. Medical necessity for continued inpatient psychiatric treatment: Continuation of ECT series for depression. Unable to engage in outpatient ECT since there are no ECT providing facilities near his long term in [place]. Treatment failure with multiple psychotropic trials and previous positive reponse to ECT 06/23: Pt has noticed subtle improvement in his mood since starting ECT. Endorses some confusion and dissociative sx which could be related to ECT and/or discontinuing the venlafaxine. Will re-start venlafaxine 37.5 mg tomorrow am for more gradual taper to reduce discontinuation sx. Will d/c clozapine 25 mg am dose w/ plan to cross titrate to Seroquel, which was reportedly effective in the past for tx of depression and AH, also since pt has multiple SE from the clozapine without any noticeable benefit. Pt is agreeable w/ this tx plan 06/24: Mood gradually improving, brighter affect today. Will continue current med regimen for now and continue cross-titration over the weekend. ECT #5 done today. #6 scheduled for Fri, 06/27 06/25: Will start lorazepam 0.5 mg bid for tx of potential venlafaxine discontinuation syndrome +/- EPS. Advised pt to stand up slowly to reduce risk of falls. 06/26: Continue current tx plan. ECT #6 scheduled for tomorrow. NPO orders in 06/27: ECT cx'd after pt had an unwitnessed fall and reported hitting the back of his head. CT head showed no acute changes and EKG was unremarkable. Pt reported blacking out prior to falling, which has reportedly happened at his long term also. He doesn't think any of the recent med changes contributed to the fall. As a precaution, will hold the Seroquel tonight since it was recently added. TW advised pt to sit up on his bed for a few minutes before standing in the morning and then stand up slowly and pt expressed an understanding and agreed. 06/28: Medically cleared by hospitalist to resume ECT. Input much appreciated. NPO orders in, ECT #6 scheduled for tomorrow. Pt c/o R knee pain after the fall Orthostatics ordered q 8 hrs x 24 hrs by hospitalist R knee xray on 06/28: was negative for any acute changes. signif for mild OA/osteopenia 06/29: Completed ECT #6 today. Mood is gradually improving. Will continue current med regimen. ECT #7 scheduled for Friday, 07/01 06/30: Mood is improving. ECT #7 scheduled for tomorrow. NPO order in. Continue current med regimen 07/01: Tolerated ECT #7 well. Orthostatics done earlier this week were neg. Continue current tx plan. ECT#8 scheduled for Friday, 07/04. NPO orders are in 07/02/25: Patient is in bed after lunch, pleasant and cooperative upon approach. Denies SI/SIB/HI/AVH but stating that he hears a little bit voices telling me I am dying . Reports anxiety and depression 03/03. Reports a little bit constipated but having last bowel movement was yesterday. Encourage fluid intake. Patient reports some shakiness twisting hand as side effect of medications. Reports ECTs helpful. 07/03/25: Patient spent most of the morning in bed, calm, pleasant and cooperative. Continue to report hand shaking and muscle twisting. Denies voices , denies SI/SIB/HI/VH. Report anxiety and depression a 03/03. Patient to have ECT tomorrow. Patient compliant with meds and slept for 8 hours per nursing. start Cogentin 0.5mg BID for possible EPS. Patient educated on: medication risk/benefits and therapeutic strategies Informed Consent: understands and further education needed Reason for continued inpatient stay Substantial Risk for: med/psych decompensation Time Spent With Patient Time: Total time managing care of this patient today ____ minutes.
[2025-07-04] VITALS (12 sets, daily range): BP systolic 109–143; BP diastolic 61–78; PULSE 66–89; RESP 15–20; TEMP 36.1–36.8; O2SAT 93–100
[2025-07-04] MEDS: Venlafaxine HCl ER 37.5 MG CAP.ER.24H PO (05:37)
--- NOTE | 2025-07-04 06:49 | HO.ANESPROP2 ---
[facility] Active Problems Active Problems: All Active Problems Right knee pain (Acute) PTSD (post-traumatic stress disorder) (Acute) Schizoaffective disorder, bipolar type (Acute) Coronary artery disease (Acute) Past Medical History Functional capacity: independent ambulation Family History Family history of problems with anesthesia: No Surgical History History of Problems with Anesthesia: No Social History Social History Household Members: Other Household Members Other:: [facility] residents Housing: Other Housing Other:: [facility] Do you presently have visiting nurse or other home services: Yes ([employer]) Comment: 5 minute checks Patient Tobacco Use Status: Former Tobacco user Tobacco use type: Cigarette Cigarettes Per Day: 3 Years Smoked: 43 Smoked in Last 30 Days: Yes e-Cigarette/Vaping Use: Never Used Patient Interested in Nicotine Replacement: No Patient Given Instructions on How to Stop Smoking: Yes Date Education Initiated: 06/09/25 Second Hand Smoke Exposure: No Currently Displaying Signs/Symptoms of Drug Intoxication Withdrawal: No Have you been hit, kicked, punched, or otherwise hurt by someone within the past year? If so, by whom?: No Do you feel safe in your current relationship?: No Current Relationship Is there a partner from a previous relationship who is making you feel unsafe now?: No Are you made to feel afraid or neglected: No Advance Directives: No Advance Directives Information Provided: No Advance Directives on File: No Do you have thoughts of harming others: None Do you have a plan to hurt others: No Plan Recently lost weight without trying: No How much weight loss: Not applicable Eating poorly because of decreased appetite: No Nutrition screen score: 0 Nutrition Risks: No Nutritional Risk service: No Sexual orientation: Straight/Heterosexual Meds Allergies Allergy/AdvReac Type Severity Reaction Status Date / Time bupropion Allergy Rash Verified 06/09/25 19:07 haloperidol (From Haldol) Allergy Rash Verified 06/09/25 19:07 lactose Allergy Gastrointestinal Verified 06/09/25 19:07 Upset peanut Allergy Anaphylaxis Verified 06/09/25 19:07 ziprasidone Allergy Rash Verified 06/09/25 19:07 Active Medications: Current Medications Acetaminophen (Acetaminophen 325 Mg Tablet) 975 mg PO BID PRN PRN Reason: Pain, Moderate(Pain Scale 4-6) Last Admin: 07/02/25 17:15 Dose: 975 mg Al Hydroxide/Mg Hydroxide (Magnesium Hydrox/Alum Hydrox 30 Ml Oral.Susp) 30 ml PO Q6H PRN PRN Reason: Heartburn/Nausea Last Admin: 06/30/25 12:21 Dose: 30 ml Aspirin (Aspirin Enteric Coated 81 Mg Tablet.Dr) 81 mg PO DAILY [facility] Last Admin: 07/03/25 09:51 Dose: 81 mg Atorvastatin Calcium (Atorvastatin Calcium 40 Mg Tablet) 40 mg PO BEDTIME [facility] Last Admin: 07/03/25 20:15 Dose: 40 mg Benztropine Mesylate (Benztropine Mesylate 0.5 Mg Tablet) 0.5 mg PO BID [facility] Last Admin: 07/03/25 21:14 Dose: 0.5 mg Budesonide (Budesonide 180 Mcg Aer.Pow.Ba) 2 puff INHALE RDAILY [facility] Last Admin: 07/03/25 09:54 Dose: Not Given Calcium Carbonate/Cholecalciferol (Calcium + Vitamin D 250 Mg Tablet) 500 mg PO BID [facility] Last Admin: 07/03/25 20:15 Dose: 500 mg Clozapine (Clozapine 100 Mg Tablet) 300 mg PO BEDTIME [facility] Last Admin: 07/03/25 20:13 Dose: 300 mg Diphenhydramine HCl (Diphenhydramine Hcl 25 Mg Capsule) 50 mg PO BEDTIME PRN PRN Reason: Insomnia Docusate Sodium (Docusate Sodium 100 Mg Capsule) 100 mg PO BID [facility] Last Admin: 07/03/25 20:14 Dose: 100 mg Famotidine (Famotidine 20 Mg Tablet) 20 mg PO BID [facility] Last Admin: 07/04/25 05:37 Dose: 20 mg Folic Acid (Folic Acid 1 Mg Tablet) 1 mg PO DAILY [facility] Last Admin: 07/03/25 09:51 Dose: 1 mg Hydroxyzine HCl (Hydroxyzine Hcl 50 Mg Tablet) 50 mg PO Q8H PRN PRN Reason: Anxiety Last Admin: 07/01/25 15:34 Dose: 50 mg Lactated Ringer's (Lr) 1,000 mls @ 100 mls/hr IVCONT .Q10H [facility] Ibuprofen (Ibuprofen 800 Mg Tablet) 800 mg PO Q8H PRN PRN Reason: moderate pain Last Admin: 07/03/25 17:18 Dose: 800 mg Lactase (Lactase Tablet) 3 tab PO TIDWM [facility] Last Admin: 07/03/25 17:01 Dose: 3 tab Magnesium Hydroxide (Milk Of Magnesia 30 Ml Oral.Susp) 30 ml PO DAILY PRN PRN Reason: Constipation Magnesium Oxide (Magnesium Oxide 400 Mg Tablet) 400 mg PO BIDPC [facility] Last Admin: 07/03/25 17:01 Dose: 400 mg Metformin HCl (Metformin Hcl 500 Mg Tablet) 500 mg PO DAILY [facility] Last Admin: 07/03/25 09:50 Dose: 500 mg Methocarbamol (Methocarbamol 500 Mg Tablet) 500 mg PO TID PRN PRN Reason: severe pain Last Admin: 07/03/25 20:32 Dose: 500 mg Metoprolol Tartrate (Metoprolol Tartrate 50 Mg Tablet) 50 mg PO BID [facility]; Protocol Last Admin: 07/04/25 05:37 Dose: 50 mg Multivitamins/Vitamin C (Multivitamin Tablet) 1 tab PO DAILY [facility] Last Admin: 07/03/25 09:51 Dose: 1 tab Naloxone HCl (Naloxone Hcl 0.4 Mg/Ml Vial) 0.04 mg IVPUSH Q5M PRN PRN Reason: Excessive sedation or RR < 8 Naloxone HCl (Naloxone Hcl 0.4 Mg/Ml Vial) 0.04 mg IVPUSH Q5M PRN PRN Reason: Excessive sedation or RR < 8 Nicotine Polacrilex (Nicotine Polacrilex 2 Mg Gum) 2 mg BUCCAL Q2H PRN PRN Reason: Nicotine Cravings Nitroglycerin (Nitroglycerin 0.4 Mg Tab.Subl) 0.4 mg SUBLINGUAL Q5MX3 PRN PRN Reason: chest pain Polyethylene Glycol (Polyethylene Glycol 3350 17 Gm Powd.Pack) 17 gm PO DAILY PRN PRN Reason: Constipation Last Admin: 06/22/25 14:56 Dose: 17 gm Sertraline HCl (Sertraline Hcl 100 Mg Tablet) 100 mg PO DAILY [facility] Last Admin: 07/03/25 09:51 Dose: 100 mg Simethicone (Simethicone 80 Mg Tab.Chew) 80 mg PO QIDWMHS [facility] Last Admin: 07/03/25 21:14 Dose: 80 mg Sucralfate (Sucralfate 1 Gm Tablet) 1 gm PO QIDACHS [facility] Last Admin: 07/03/25 20:14 Dose: 1 gm Tamsulosin HCl (Tamsulosin Hcl 0.4 Mg Capsule) 0.8 mg PO BEDTIME [facility] Last Admin: 07/03/25 20:14 Dose: 0.8 mg Trazodone HCl (Trazodone Hcl 50 Mg Tablet) 150 mg PO BEDTIME [facility] Last Admin: 07/03/25 20:13 Dose: 150 mg Trazodone HCl (Trazodone Hcl 50 Mg Tablet) 50 mg PO BEDTIME PRN PRN Reason: Insomnia Venlafaxine HCl (Venlafaxine Hcl Er 37.5 Mg Cap.Er.24h) 37.5 mg PO DAILY [facility] Last Admin: 07/04/25 05:37 Dose: 37.5 mg Vitamin D (Cholecalciferol (Vitamin D3) 25 Mcg Tablet) 50 mcg PO DAILY [facility] Last Admin: 07/03/25 09:50 Dose: 50 mcg Home Medications ?Medication ?Instructions ?Recorded ?Confirmed ?Last Taken ?Type aspirin 81 mg tablet,delayed 81 mg PO DAILY 06/09/25 06/09/25 06/08/25 History release atorvastatin 40 mg tablet 40 mg PO BEDTIME cholesterol 06/09/25 06/09/25 06/08/25 History calcium 500 mg (as 2 tab PO BID 06/09/25 06/09/25 Unknown History carbonate)-vitamin D3 5 mcg (200 unit) tablet (Oyster Shell Calcium-Vitamin D3) cholecalciferol (vitamin D3) 50 50 mcg PO DAILY 06/09/25 06/09/25 06/08/25 History mcg (2,000 unit) capsule clozapine 100 mg tablet 300 mg PO BEDTIME 06/09/25 06/09/25 06/08/25 History clozapine 50 mg tablet 50 mg PO BEDTIME 06/09/25 06/09/25 06/08/25 History dextroamphetamine-amphetamine ER 2 cap PO DAILY 06/09/25 06/09/25 06/08/25 History 10 mg 24hr capsule,extend release docusate sodium 100 mg capsule 100 mg PO BID 06/09/25 06/09/25 06/08/25 History duloxetine 60 mg capsule,delayed 60 mg PO DAILY 06/09/25 06/09/25 06/08/25 History release famotidine 20 mg tablet 20 mg PO BID acid reflux 06/09/25 06/09/25 Unknown History guanfacine 1 mg tablet,extended 1 mg PO DAILY 06/09/25 06/09/25 Unknown History release 24 hr ibuprofen 800 mg tablet 800 mg PO Q8H PRN pain 06/09/25 06/09/25 Unknown History lorazepam 1 mg tablet 1 mg PO BEDTIME PRN insomnia 06/09/25 06/09/25 06/08/25 History metoprolol succinate 25 mg 75 mg PO DAILY 06/09/25 06/09/25 Unknown History tablet,extended release 24 hr multivitamin with folic acid 400 1 tab PO DAILY 06/09/25 06/09/25 06/08/25 History mcg tablet (Daily-Avtar (with folic acid)) sertraline 100 mg tablet 100 mg PO DAILY 06/09/25 06/09/25 06/08/25 History sucralfate 1 gram tablet 1 g PO QID 06/09/25 06/09/25 Unknown History tamsulosin 0.4 mg capsule 0.4 mg PO BEDTIME 06/09/25 06/09/25 06/03/25 History trazodone 100 mg tablet 100 mg PO BEDTIME 06/09/25 06/09/25 06/08/25 History venlafaxine 75 mg capsule,extended 75 mg PO QAM 06/09/25 06/09/25 06/08/25 History release 24 hr vitamin B complex 1 cap PO DAILY 06/09/25 06/09/25 06/08/25 History Exam Height,Weight and Vital Signs: Height 6 ft Weight 205 lb 2 oz Last Vital Signs Temp 97 F 07/04/25 06:40 Pulse 68 07/04/25 06:40 Resp 15 07/04/25 06:40 BP 109/70 07/04/25 06:40 Pulse Ox 95 07/04/25 06:40 O2 Del Method Room Air 07/04/25 06:40 O2 Flow Rate 0 07/01/25 08:50 Pertinent Lab Results Pertinent Lab Results: Laboratory Tests 06/10/25 06/14/25 06/14/25 08:07 14:27 17:34 WBC 7.9 RBC 4.55 L Hgb 13.0 L Hct 38.2 L MCV 84.0 MCH 28.6 MCHC 34.0 RDW 13.4 Plt Count 284 MPV 9.2 L Immature Gran % (Auto) 0.3 Neut % (Auto) 68.0 Lymph % (Auto) 21.6 [place] % (Auto) 7.3 Eos % (Auto) 1.9 Baso % (Auto) 0.9 Lymph # (Auto) 1.7 [place] # (Auto) 0.6 Eos # (Auto) 0.2 Baso # (Auto) 0.1 Abs Immat Gran (auto) 0.02 Absolute Neuts (auto) 5.7 5.4 Absolute Nucleated RBC 0.000 Nucleated RBC % (auto) 0.0 Sodium 141 139 Potassium 3.9 4.3 Chloride 108 103 Carbon Dioxide 23 26 Anion Gap 14 14 BUN 8 L 19 H Creatinine 0.94 1.19 Estim Creat Clear Calc 91.7 72.4 Estimated GFR > 60 > 60 Random Glucose 110 135 H Estimat Average Glucose 114 Hemoglobin A1c % 5.6 Calcium 9.5 9.8 Magnesium Total Bilirubin 0.3 0.3 AST 20 22 ALT 27 42 H Alkaline Phosphatase 95 93 Troponin I High Sens < 2.7 Total Protein 7.5 7.6 Albumin 4.7 4.8 Triglycerides 298 H Cholesterol 159 LDL Cholesterol, Calc 73 HDL Cholesterol 27 L TSH 0.86 Free T4 1.01 Urine Color Urine Appearance Urine pH Ur Specific Hallie Urine Protein Urine Glucose (UA) Urine Ketones Urine Blood Urine Nitrite Ur Leukocyte Esterase 06/17/25 06/17/25 06/21/25 17:35 17:36 10:40 WBC RBC Hgb Hct MCV MCH MCHC RDW Plt Count MPV Immature Gran % (Auto) Neut % (Auto) Lymph % (Auto) [place] % (Auto) Eos % (Auto) Baso % (Auto) Lymph # (Auto) [place] # (Auto) Eos # (Auto) Baso # (Auto) Abs Immat Gran (auto) Absolute Neuts (auto) 5.5 Absolute Nucleated RBC Nucleated RBC % (auto) Sodium Potassium Chloride Carbon Dioxide Anion Gap BUN Creatinine 1.13 Estim Creat Clear Calc 76.3 Estimated GFR > 60 Random Glucose Estimat Average Glucose Hemoglobin A1c % Calcium Magnesium Total Bilirubin AST ALT Alkaline Phosphatase Troponin I High Sens Total Protein Albumin Triglycerides Cholesterol LDL Cholesterol, Calc HDL Cholesterol TSH Free T4 Urine Color Yellow Urine Appearance Clear Urine pH 7.0 Ur Specific Hallie 1.015 Urine Protein Negative Urine Glucose (UA) Negative Urine Ketones Negative Urine Blood Negative Urine Nitrite Negative Ur Leukocyte Esterase Negative 06/24/25 06/27/25 06/27/25 13:01 11:19 11:19 WBC 6.6 RBC 4.80 Hgb 13.7 L Hct 40.9 L MCV 85.2 MCH 28.5 MCHC 33.5 RDW 13.4 Plt Count 248 MPV 10.1 Immature Gran % (Auto) 0.5 H Neut % (Auto) 64.6 Lymph % (Auto) 23.1 [place] % (Auto) 7.3 Eos % (Auto) 3.4 Baso % (Auto) 1.1 Lymph # (Auto) 1.5 [place] # (Auto) 0.5 Eos # (Auto) 0.2 Baso # (Auto) 0.1 Abs Immat Gran (auto) 0.03 Absolute Neuts (auto) 5.6 4.2 Absolute Nucleated RBC 0.000 Nucleated RBC % (auto) 0.0 Sodium 142 Potassium 4.1 Chloride 105 Carbon Dioxide 28 Anion Gap 13 BUN 15 Creatinine 1.12 1.00 Estim Creat Clear Calc 76.9 86.2 Estimated GFR > 60 > 60 Random Glucose 122 H Estimat Average Glucose Hemoglobin A1c % Calcium 9.6 Magnesium 2.3 Total Bilirubin AST ALT Alkaline Phosphatase Troponin I High Sens Cancelled < 2.7 Total Protein Albumin Triglycerides Cholesterol LDL Cholesterol, Calc HDL Cholesterol TSH Free T4 Urine Color Urine Appearance Urine pH Ur Specific Hallie Urine Protein Urine Glucose (UA) Urine Ketones Urine Blood Urine Nitrite Ur Leukocyte Esterase Airway Mallampati Class: I (edentulous) TM Dist: >3cm Neck ROM: Full Heart: rrr Lungs: cta Assessment and Plan Assessment Anesthesia Assessment: Anesthesia Plan Discussed and Chart Reviewed Final Anesthetic Review Family History of Problems with Anesthesia: No History of Problems with Anesthesia: No NPO: Yes ASA Class: III Final Preanesthetic Review: No Changes in Pt Med Stat, Meds/Allgs Chart Reviewed and Consent Obtained/Reviewed Patient Risk: Intermediate Procedure Risk: Intermediate Anesthetic Plan Anesthetic Plan: GA Disposition: Standard PACU
--- NOTE | 2025-07-04 07:51 | P.PCN_ITS ---
ECT Procedure Note Diagnosis/Treatment Date of Service: 07/04/25 Diagnosis: Schizoaffective Disorder Previous ECT Date: 06/29/25 Current Treatment Number: 8 Treatment: Series Interval Clinical Notes: Depression is improving. Denies SI. Denies any issues with last tx . Patient with history of hallucinations lives in [facility] does feel better Time: Total time managing care of this patient today _30__ minutes. ECT Settings Device: THYMATRON DGx Electrode Placement: Right Unilateral Program/Pulse Width: 0.25 Energy Percent: 80 Seizure Duration By EEG (in seconds): 29 Medications Administration General Anesthetic: Etomidate (16) Muscle Relaxant: Succinylcholine (100) Ancillary Medications Anti-emetics: Zofran - Pre ECT (4 mg) Cardiovascular Medications: Labetolol (5) Miscillaneous Medications: Midazolam (2 mg- given after propofol 2/2 agitation ) Airway Management Airway Management: Bag Mask Ventilation Treatment Recommendations No Changes Recommended: No change Notes: Lower succinylcholine to 80 mg Pt Tolerated Procedure w/o Issue: Yes
--- NOTE | 2025-07-04 07:51 | MHC.SHP ---
Pre-Procedural Eval Section A - 24 Hr Update-Section A only Date of Service: 07/04/25 The patient is an INPATIENT: Yes Changes since office visit: Yes Patient answered all questions; No Cold of Flu in the past 2 weeks, No New Medical Problems and No Changes in Medication The patient has been examined within 24 hours of the surgical procedure. The History & Physical has been completed within 30 days and I have reviewed it.: Yes Section B - Complete if H&P > 30 days Chief Complaint: SI Details of Present Illness: Depression improving Relevant Family History (Specify if Yes): No Relevant Social History: None Present Medications: see Short Stay Collaborative assessment Allergies: Allergies Allergy/AdvReac Type Severity Reaction Status Date / Time bupropion Allergy Rash Verified 06/09/25 19:07 haloperidol (From Haldol) Allergy Rash Verified 06/09/25 19:07 lactose Allergy Gastrointestinal Verified 06/09/25 19:07 Upset peanut Allergy Anaphylaxis Verified 06/09/25 19:07 ziprasidone Allergy Rash Verified 06/09/25 19:07 Plan Diagnosis/Plan: Unchanged I have reviewed the history and physical and performed a pertinent physical examination on my patient. No changes have occurred unless specified. Time Spent With Patient Time: Total time managing care of this patient today ____ minutes.
--- NOTE | 2025-07-04 07:55 | HO.ANESPROP2 ---
[facility] Active Problems Active Problems: All Active Problems (Updated 06/28/25 @ 16:13 by Alejandra Dangelo DNP) Right knee pain (Acute) PTSD (post-traumatic stress disorder) (Acute) Schizoaffective disorder, bipolar type (Acute) Coronary artery disease (Acute) Past Medical History Functional capacity: independent ambulation Family History Family history of problems with anesthesia: No Surgical History History of Problems with Anesthesia: No Social History Social History Household Members: Other Household Members Other:: jail residents Housing: Other Housing Other:: jail Do you presently have visiting nurse or other home services: Yes ([employer]) Comment: 5 minute checks Patient Tobacco Use Status: Former Tobacco user Tobacco use type: Cigarette Cigarettes Per Day: 3 Years Smoked: 43 Smoked in Last 30 Days: Yes e-Cigarette/Vaping Use: Never Used Patient Interested in Nicotine Replacement: No Patient Given Instructions on How to Stop Smoking: Yes Date Education Initiated: 06/09/25 Second Hand Smoke Exposure: No Currently Displaying Signs/Symptoms of Drug Intoxication Withdrawal: No Have you been hit, kicked, punched, or otherwise hurt by someone within the past year? If so, by whom?: No Do you feel safe in your current relationship?: No Current Relationship Is there a partner from a previous relationship who is making you feel unsafe now?: No Are you made to feel afraid or neglected: No Advance Directives: No Advance Directives Information Provided: No Advance Directives on File: No Do you have thoughts of harming others: None Do you have a plan to hurt others: No Plan Recently lost weight without trying: No How much weight loss: Not applicable Eating poorly because of decreased appetite: No Nutrition screen score: 0 Nutrition Risks: No Nutritional Risk service: No Sexual orientation: Straight/Heterosexual Meds Allergies Allergy/AdvReac Type Severity Reaction Status Date / Time bupropion Allergy Rash Verified 06/09/25 19:07 haloperidol (From Haldol) Allergy Rash Verified 06/09/25 19:07 lactose Allergy Gastrointestinal Verified 06/09/25 19:07 Upset peanut Allergy Anaphylaxis Verified 06/09/25 19:07 ziprasidone Allergy Rash Verified 06/09/25 19:07 Active Medications: Current Medications Acetaminophen (Acetaminophen 325 Mg Tablet) 975 mg PO BID PRN PRN Reason: Pain, Moderate(Pain Scale 4-6) Last Admin: 07/02/25 17:15 Dose: 975 mg Al Hydroxide/Mg Hydroxide (Magnesium Hydrox/Alum Hydrox 30 Ml Oral.Susp) 30 ml PO Q6H PRN PRN Reason: Heartburn/Nausea Last Admin: 06/30/25 12:21 Dose: 30 ml Aspirin (Aspirin Enteric Coated 81 Mg Tablet.Dr) 81 mg PO DAILY [facility] Last Admin: 07/03/25 09:51 Dose: 81 mg Atorvastatin Calcium (Atorvastatin Calcium 40 Mg Tablet) 40 mg PO BEDTIME [facility] Last Admin: 07/03/25 20:15 Dose: 40 mg Benztropine Mesylate (Benztropine Mesylate 0.5 Mg Tablet) 0.5 mg PO BID [facility] Last Admin: 07/03/25 21:14 Dose: 0.5 mg Budesonide (Budesonide 180 Mcg Aer.Pow.Ba) 2 puff INHALE RDAILY [facility] Last Admin: 07/03/25 09:54 Dose: Not Given Calcium Carbonate/Cholecalciferol (Calcium + Vitamin D 250 Mg Tablet) 500 mg PO BID [facility] Last Admin: 07/03/25 20:15 Dose: 500 mg Clozapine (Clozapine 100 Mg Tablet) 300 mg PO BEDTIME [facility] Last Admin: 07/03/25 20:13 Dose: 300 mg Diphenhydramine HCl (Diphenhydramine Hcl 25 Mg Capsule) 50 mg PO BEDTIME PRN PRN Reason: Insomnia Docusate Sodium (Docusate Sodium 100 Mg Capsule) 100 mg PO BID [facility] Last Admin: 07/03/25 20:14 Dose: 100 mg Famotidine (Famotidine 20 Mg Tablet) 20 mg PO BID [facility] Last Admin: 07/04/25 05:37 Dose: 20 mg Folic Acid (Folic Acid 1 Mg Tablet) 1 mg PO DAILY [facility] Last Admin: 07/03/25 09:51 Dose: 1 mg Hydroxyzine HCl (Hydroxyzine Hcl 50 Mg Tablet) 50 mg PO Q8H PRN PRN Reason: Anxiety Last Admin: 07/01/25 15:34 Dose: 50 mg Lactated Ringer's (Lr) 1,000 mls @ 100 mls/hr IVCONT .Q10H [facility] Ibuprofen (Ibuprofen 800 Mg Tablet) 800 mg PO Q8H PRN PRN Reason: moderate pain Last Admin: 07/03/25 17:18 Dose: 800 mg Lactase (Lactase Tablet) 3 tab PO TIDWM [facility] Last Admin: 07/03/25 17:01 Dose: 3 tab Magnesium Hydroxide (Milk Of Magnesia 30 Ml Oral.Susp) 30 ml PO DAILY PRN PRN Reason: Constipation [facility] ([facility] 400 Mg [facility] Last Admin: 07/03/25 17:01 Dose: 400 mg Metformin HCl (Metformin Hcl 500 Mg Tablet) 500 mg PO DAILY [facility] Last Admin: 07/03/25 09:50 Dose: 500 mg Methocarbamol (Methocarbamol 500 Mg Tablet) 500 mg PO TID PRN PRN Reason: severe pain Last Admin: 07/03/25 20:32 Dose: 500 mg Metoprolol Tartrate (Metoprolol Tartrate 50 Mg Tablet) 50 mg PO BID [facility]; Protocol Last Admin: 07/04/25 05:37 Dose: 50 mg Multivitamins/Vitamin C (Multivitamin Tablet) 1 tab PO DAILY [facility] Last Admin: 07/03/25 09:51 Dose: 1 tab Naloxone HCl (Naloxone Hcl 0.4 Mg/Ml Vial) 0.04 mg IVPUSH Q5M PRN PRN Reason: Excessive sedation or RR < 8 Naloxone HCl (Naloxone Hcl 0.4 Mg/Ml Vial) 0.04 mg IVPUSH Q5M PRN PRN Reason: Excessive sedation or RR < 8 Nicotine Polacrilex (Nicotine Polacrilex 2 Mg Gum) 2 mg BUCCAL Q2H PRN PRN Reason: Nicotine Cravings Nitroglycerin (Nitroglycerin 0.4 Mg Tab.Subl) 0.4 mg SUBLINGUAL Q5MX3 PRN PRN Reason: chest pain Polyethylene Glycol (Polyethylene Glycol 3350 17 Gm Powd.Pack) 17 gm PO DAILY PRN PRN Reason: Constipation Last Admin: 06/22/25 14:56 Dose: 17 gm Sertraline HCl (Sertraline Hcl 100 Mg Tablet) 100 mg PO DAILY [facility] Last Admin: 07/03/25 09:51 Dose: 100 mg Simethicone (Simethicone 80 Mg Tab.Chew) 80 mg PO QIDWMHS [facility] Last Admin: 07/03/25 21:14 Dose: 80 mg Sucralfate (Sucralfate 1 Gm Tablet) 1 gm PO QIDACHS [facility] Last Admin: 07/03/25 20:14 Dose: 1 gm Tamsulosin HCl (Tamsulosin Hcl 0.4 Mg Capsule) 0.8 mg PO BEDTIME [facility] Last Admin: 07/03/25 20:14 Dose: 0.8 mg Trazodone HCl (Trazodone Hcl 50 Mg Tablet) 150 mg PO BEDTIME [facility] Last Admin: 07/03/25 20:13 Dose: 150 mg Trazodone HCl (Trazodone Hcl 50 Mg Tablet) 50 mg PO BEDTIME PRN PRN Reason: Insomnia Venlafaxine HCl (Venlafaxine Hcl Er 37.5 Mg Cap.Er.24h) 37.5 mg PO DAILY [facility] Last Admin: 07/04/25 05:37 Dose: 37.5 mg Vitamin D (Cholecalciferol (Vitamin D3) 25 Mcg Tablet) 50 mcg PO DAILY [facility] Last Admin: 07/03/25 09:50 Dose: 50 mcg Home Medications ?Medication ?Instructions ?Recorded ?Confirmed ?Last Taken ?Type aspirin 81 mg tablet,delayed 81 mg PO DAILY 06/09/25 06/09/25 06/08/25 History release atorvastatin 40 mg tablet 40 mg PO BEDTIME cholesterol 06/09/25 06/09/25 06/08/25 History calcium 500 mg (as 2 tab PO BID 06/09/25 06/09/25 Unknown History carbonate)-vitamin D3 5 mcg (200 unit) tablet (Oyster Shell Calcium-Vitamin D3) cholecalciferol (vitamin D3) 50 50 mcg PO DAILY 06/09/25 06/09/25 06/08/25 History mcg (2,000 unit) capsule clozapine 100 mg tablet 300 mg PO BEDTIME 06/09/25 06/09/25 06/08/25 History clozapine 50 mg tablet 50 mg PO BEDTIME 06/09/25 06/09/25 06/08/25 History dextroamphetamine-amphetamine ER 2 cap PO DAILY 06/09/25 06/09/25 06/08/25 History 10 mg 24hr capsule,extend release docusate sodium 100 mg capsule 100 mg PO BID 06/09/25 06/09/25 06/08/25 History duloxetine 60 mg capsule,delayed 60 mg PO DAILY 06/09/25 06/09/25 06/08/25 History release famotidine 20 mg tablet 20 mg PO BID acid reflux 06/09/25 06/09/25 Unknown History guanfacine 1 mg tablet,extended 1 mg PO DAILY 06/09/25 06/09/25 Unknown History release 24 hr ibuprofen 800 mg tablet 800 mg PO Q8H PRN pain 06/09/25 06/09/25 Unknown History lorazepam 1 mg tablet 1 mg PO BEDTIME PRN insomnia 06/09/25 06/09/25 06/08/25 History metoprolol succinate 25 mg 75 mg PO DAILY 06/09/25 06/09/25 Unknown History tablet,extended release 24 hr multivitamin with folic acid 400 1 tab PO DAILY 06/09/25 06/09/25 06/08/25 History mcg tablet (Daily-Avtar (with folic acid)) sertraline 100 mg tablet 100 mg PO DAILY 06/09/25 06/09/25 06/08/25 History sucralfate 1 gram tablet 1 g PO QID 06/09/25 06/09/25 Unknown History tamsulosin 0.4 mg capsule 0.4 mg PO BEDTIME 06/09/25 06/09/25 06/03/25 History trazodone 100 mg tablet 100 mg PO BEDTIME 06/09/25 06/09/25 06/08/25 History venlafaxine 75 mg capsule,extended 75 mg PO QAM 06/09/25 06/09/25 06/08/25 History release 24 hr vitamin B complex 1 cap PO DAILY 06/09/25 06/09/25 06/08/25 History Exam Height,Weight and Vital Signs: Height 6 ft Weight 205 lb 2 oz Last Vital Signs Temp 97 F 07/04/25 06:40 Pulse 68 07/04/25 06:40 Resp 15 07/04/25 06:40 BP 109/70 07/04/25 06:40 Pulse Ox 95 07/04/25 06:40 O2 Del Method Room Air 07/04/25 06:40 O2 Flow Rate 0 07/01/25 08:50 Pertinent Lab Results Pertinent Lab Results: Laboratory Tests 06/10/25 06/14/25 06/14/25 08:07 14:27 17:34 WBC 7.9 RBC 4.55 L Hgb 13.0 L Hct 38.2 L MCV 84.0 MCH 28.6 MCHC 34.0 RDW 13.4 Plt Count 284 MPV 9.2 L Immature Gran % (Auto) 0.3 Neut % (Auto) 68.0 Lymph % (Auto) 21.6 Terry % (Auto) 7.3 Eos % (Auto) 1.9 Baso % (Auto) 0.9 Lymph # (Auto) 1.7 Terry # (Auto) 0.6 Eos # (Auto) 0.2 Baso # (Auto) 0.1 Abs Immat Gran (auto) 0.02 Absolute Neuts (auto) 5.7 5.4 Absolute Nucleated RBC 0.000 Nucleated RBC % (auto) 0.0 Sodium 141 139 Potassium 3.9 4.3 Chloride 108 103 Carbon Dioxide 23 26 Anion Gap 14 14 BUN 8 L 19 H Creatinine 0.94 1.19 Estim Creat Clear Calc 91.7 72.4 Estimated GFR > 60 > 60 Random Glucose 110 135 H Estimat Average Glucose 114 Hemoglobin A1c % 5.6 Calcium 9.5 9.8 Magnesium Total Bilirubin 0.3 0.3 AST 20 22 ALT 27 42 H Alkaline Phosphatase 95 93 Troponin I High Sens < 2.7 Total Protein 7.5 7.6 Albumin 4.7 4.8 Triglycerides 298 H Cholesterol 159 LDL Cholesterol, Calc 73 HDL Cholesterol 27 L TSH 0.86 Free T4 1.01 Urine Color Urine Appearance Urine pH Ur Specific [place] Urine Protein Urine Glucose (UA) Urine Ketones Urine Blood Urine Nitrite Ur Leukocyte Esterase 06/17/25 06/17/25 06/21/25 17:35 17:36 10:40 WBC RBC Hgb Hct MCV MCH MCHC RDW Plt Count MPV Immature Gran % (Auto) Neut % (Auto) Lymph % (Auto) Terry % (Auto) Eos % (Auto) Baso % (Auto) Lymph # (Auto) Terry # (Auto) Eos # (Auto) Baso # (Auto) Abs Immat Gran (auto) Absolute Neuts (auto) 5.5 Absolute Nucleated RBC Nucleated RBC % (auto) Sodium Potassium Chloride Carbon Dioxide Anion Gap BUN Creatinine 1.13 Estim Creat Clear Calc 76.3 Estimated GFR > 60 Random Glucose Estimat Average Glucose Hemoglobin A1c % Calcium Magnesium Total Bilirubin AST ALT Alkaline Phosphatase Troponin I High Sens Total Protein Albumin Triglycerides Cholesterol LDL Cholesterol, Calc HDL Cholesterol TSH Free T4 Urine Color Yellow Urine Appearance Clear Urine pH 7.0 Ur Specific [place] 1.015 Urine Protein Negative Urine Glucose (UA) Negative Urine Ketones Negative Urine Blood Negative Urine Nitrite Negative Ur Leukocyte Esterase Negative 06/24/25 06/27/25 06/27/25 13:01 11:19 11:19 WBC 6.6 RBC 4.80 Hgb 13.7 L Hct 40.9 L MCV 85.2 MCH 28.5 MCHC 33.5 RDW 13.4 Plt Count 248 MPV 10.1 Immature Gran % (Auto) 0.5 H Neut % (Auto) 64.6 Lymph % (Auto) 23.1 Terry % (Auto) 7.3 Eos % (Auto) 3.4 Baso % (Auto) 1.1 Lymph # (Auto) 1.5 Terry # (Auto) 0.5 Eos # (Auto) 0.2 Baso # (Auto) 0.1 Abs Immat Gran (auto) 0.03 Absolute Neuts (auto) 5.6 4.2 Absolute Nucleated RBC 0.000 Nucleated RBC % (auto) 0.0 Sodium 142 Potassium 4.1 Chloride 105 Carbon Dioxide 28 Anion Gap 13 BUN 15 Creatinine 1.12 1.00 Estim Creat Clear Calc 76.9 86.2 Estimated GFR > 60 > 60 Random Glucose 122 H Estimat Average Glucose Hemoglobin A1c % Calcium 9.6 Magnesium 2.3 Total Bilirubin AST ALT Alkaline Phosphatase Troponin I High Sens Cancelled < 2.7 Total Protein Albumin Triglycerides Cholesterol LDL Cholesterol, Calc HDL Cholesterol TSH Free T4 Urine Color Urine Appearance Urine pH Ur Specific [place] Urine Protein Urine Glucose (UA) Urine Ketones Urine Blood Urine Nitrite Ur Leukocyte Esterase Airway Mallampati Class: I (edentulous) TM Dist: >3cm Neck ROM: Full Heart: rrr Lungs: cta Assessment and Plan Assessment Anesthesia Assessment: Anesthesia Plan Discussed and Chart Reviewed Final Anesthetic Review Family History of Problems with Anesthesia: No History of Problems with Anesthesia: No NPO: Yes ASA Class: III Final Preanesthetic Review: No Changes in Pt Med Stat, Meds/Allgs Chart Reviewed and Consent Obtained/Reviewed Patient Risk: Intermediate Procedure Risk: Intermediate Anesthetic Plan Anesthetic Plan: GA Disposition: Standard PACU
[2025-07-04] MEDS: Calcium + Vitamin D 250 MG TABLET 500 MG PO ×2 (09:24→20:12)
[2025-07-04] MEDS: Aspirin Enteric Coated 81 MG TABLET.DR PO (09:26)
--- NOTE | 2025-07-04 18:09 | P.PNPSI_ITS ---
Subjective Subjective Date of Service: 07/04/25 Reason For Visit: SI Interim History: chart reviewed, case discussed with team Pt had ECT #8 today, which he tolerated well. He had an arm spasm in recovery that was witnessed by the PACU nurse per nursing report. He was started on benztropine over the weekend by the pathology transcriptionist production roustabout, which he reports has helped w/ the twitching overall. He denies any SE from it. Pt reports that he struggles w/ depression but when asked how he feels today, he reports 'okay'. He denies SI, AH. Medication Compliance: Yes Mental Status Exam Mental Status Exam Narrative: Appearance: lying in bed when t/w approached him but sat up for interview. Grooming/hygiene fair. Good eye contact Attitude: Cooperative. Speech: Fluent and wnl in regard to volume, tone, prosody Motor activity: Calm. No twitching or other abnormal movements observed Mood: okay Affect: appropriate, reactive, brightens up appropriately Thought process: goal directed and without evidence of formal thought disorder Thought content: as noted above Perception: does not appear to respond to internal stimuli Cognition grossly intact Insight: intact Judgment: intact Diagnostics Vital Signs (24Hr): Vital Signs - 24 hr 07/03/25 20:00 07/03/25 20:15 07/04/25 05:37 Temperature 97.7 F Pulse Rate 84 84 89 Respiratory Rate 16 Blood Pressure 98/62 98/62 131/71 Pulse Oximetry 96 Oxygen Delivery Method Room Air 07/04/25 05:38 07/04/25 06:26 07/04/25 06:40 Temperature 97.3 F 97.3 F 97 F Pulse Rate 89 89 68 Respiratory Rate 16 16 15 Blood Pressure 131/71 131/71 109/70 Pulse Oximetry 100 100 95 Oxygen Delivery Method Room Air Room Air 07/04/25 08:18 07/04/25 08:23 07/04/25 08:28 Temperature 98.3 F Pulse Rate 79 76 74 Respiratory Rate 16 16 16 Blood Pressure 143/77 H 137/78 140/73 H Pulse Oximetry 93 94 94 Oxygen Delivery Method Room Air Room Air Room Air 07/04/25 08:33 07/04/25 08:48 07/04/25 09:18 Temperature 98.2 F 97.1 F Pulse Rate 73 73 66 Respiratory Rate 16 16 20 Blood Pressure 136/76 137/77 117/67 Pulse Oximetry 95 95 98 Oxygen Delivery Method Room Air Room Air Room Air 07/04/25 09:19 Temperature 97.2 F Pulse Rate 66 Respiratory Rate 20 Blood Pressure 117/67 Pulse Oximetry 98 Oxygen Delivery Method Room Air BMI result Body Mass Index 27.8 Labs 06/27/25 11:19 06/27/25 11:19 Imaging Radiology Impressions: ITS Impressions Chest X-Ray 06/14/25 16:43 IMPRESSION: No evidence for acute disease in the chest. Electronically signed by: Concepcion Delarosa MD 06/14/2025 04:54 PM EDT RP Head CT 06/27/25 10:09 IMPRESSION: No acute fracture, bony calvarium. No acute intracranial hemorrhage. Atherosclerosis disease, intracranial. Electronically signed by: Pino Ponce MD 06/27/2025 10:44 AM EST RP Medications Medications Current Medications Acetaminophen (Acetaminophen 325 Mg Tablet) 975 mg PO BID PRN PRN Reason: Pain, Moderate(Pain Scale 4-6) Last Admin: 07/04/25 14:30 Dose: 975 mg Al Hydroxide/Mg Hydroxide (Magnesium Hydrox/Alum Hydrox 30 Ml Oral.Susp) 30 ml PO Q6H PRN PRN Reason: Heartburn/Nausea Last Admin: 06/30/25 12:21 Dose: 30 ml Aspirin (Aspirin Enteric Coated 81 Mg Tablet.Dr) 81 mg PO DAILY [facility] [place] Last Admin: 07/04/25 09:26 Dose: 81 mg Atorvastatin Calcium (Atorvastatin Calcium 40 Mg Tablet) 40 mg PO BEDTIME [facility] [place] Last Admin: 07/03/25 20:15 Dose: 40 mg Benztropine Mesylate (Benztropine Mesylate 0.5 Mg Tablet) 0.5 mg PO BID [facility] [place] Last Admin: 07/04/25 09:24 Dose: 0.5 mg Budesonide (Budesonide 180 Mcg Aer.Pow.Ba) 2 puff INHALE RDAILY [facility] [place] Last Admin: 07/04/25 09:28 Dose: Not Given Calcium Carbonate/Cholecalciferol (Calcium + Vitamin D 250 Mg Tablet) 500 mg PO BID [facility] [place] Last Admin: 07/04/25 09:24 Dose: 500 mg Clozapine (Clozapine 100 Mg Tablet) 300 mg PO BEDTIME [facility] [place] Last Admin: 07/03/25 20:13 Dose: 300 mg Diphenhydramine HCl (Diphenhydramine Hcl 25 Mg Capsule) 50 mg PO BEDTIME PRN PRN Reason: Insomnia Docusate Sodium (Docusate Sodium 100 Mg Capsule) 100 mg PO BID [facility] [place] Last Admin: 07/04/25 09:23 Dose: 100 mg Famotidine (Famotidine 20 Mg Tablet) 20 mg PO BID [facility] [place] Last Admin: 07/04/25 05:37 Dose: 20 mg Folic Acid (Folic Acid 1 Mg Tablet) 1 mg PO DAILY [facility] [place] Last Admin: 07/04/25 09:26 Dose: 1 mg Hydroxyzine HCl (Hydroxyzine Hcl 50 Mg Tablet) 50 mg PO Q8H PRN PRN Reason: Anxiety Last Admin: 07/01/25 15:34 Dose: 50 mg Ibuprofen (Ibuprofen 800 Mg Tablet) 800 mg PO Q8H PRN PRN Reason: moderate pain Last Admin: 07/04/25 14:29 Dose: 800 mg Lactase (Lactase Tablet) 3 tab PO TIDWM [facility] [place] Last Admin: 07/04/25 15:59 Dose: 3 tab Magnesium Hydroxide (Milk Of Magnesia 30 Ml Oral.Susp) 30 ml PO DAILY PRN PRN Reason: Constipation [facility] ([facility] 400 Mg [facility]t) [facility] Last Admin: 07/04/25 15:58 Dose: 400 mg Metformin HCl (Metformin Hcl 500 Mg Tablet) 500 mg PO DAILY [facility] [place] Last Admin: 07/04/25 09:24 Dose: 500 mg Methocarbamol (Methocarbamol 500 Mg Tablet) 500 mg PO TID PRN PRN Reason: severe pain Last Admin: 07/03/25 20:32 Dose: 500 mg Metoprolol Tartrate (Metoprolol Tartrate 50 Mg Tablet) 50 mg PO BID [facility] [place]; Protocol Last Admin: 07/04/25 05:37 Dose: 50 mg Multivitamins/Vitamin C (Multivitamin Tablet) 1 tab PO DAILY [facility] [place] Last Admin: 07/04/25 09:25 Dose: 1 tab Naloxone HCl (Naloxone Hcl 0.4 Mg/Ml Vial) 0.04 mg IVPUSH Q5M PRN PRN Reason: Excessive sedation or RR < 8 Nicotine Polacrilex (Nicotine Polacrilex 2 Mg Gum) 2 mg BUCCAL Q2H PRN PRN Reason: Nicotine Cravings Nitroglycerin (Nitroglycerin 0.4 Mg Tab.Subl) 0.4 mg SUBLINGUAL Q5MX3 PRN PRN Reason: chest pain Polyethylene Glycol (Polyethylene Glycol 3350 17 Gm Powd.Pack) 17 gm PO DAILY PRN PRN Reason: Constipation Last Admin: 06/22/25 14:56 Dose: 17 gm Sertraline HCl (Sertraline Hcl 100 Mg Tablet) 100 mg PO DAILY [facility] [place] Last Admin: 07/04/25 09:23 Dose: 100 mg Simethicone (Simethicone 80 Mg Tab.Chew) 80 mg PO QIDWMHS [facility] [place] Last Admin: 07/04/25 15:59 Dose: 80 mg Sucralfate (Sucralfate 1 Gm Tablet) 1 gm PO QIDACHS [facility] [place] Last Admin: 07/04/25 15:58 Dose: 1 gm Tamsulosin HCl (Tamsulosin Hcl 0.4 Mg Capsule) 0.8 mg PO BEDTIME [facility] [place] Last Admin: 07/03/25 20:14 Dose: 0.8 mg Trazodone HCl (Trazodone Hcl 50 Mg Tablet) 150 mg PO BEDTIME [facility] [place] Last Admin: 07/03/25 20:13 Dose: 150 mg Trazodone HCl (Trazodone Hcl 50 Mg Tablet) 50 mg PO BEDTIME PRN PRN Reason: Insomnia Venlafaxine HCl (Venlafaxine Hcl Er 37.5 Mg Cap.Er.24h) 37.5 mg PO DAILY [facility] [place] Last Admin: 07/04/25 05:37 Dose: 37.5 mg Vitamin D (Cholecalciferol (Vitamin D3) 25 Mcg Tablet) 50 mcg PO DAILY [facility] [place] Last Admin: 07/04/25 09:27 Dose: 50 mcg Allergies Allergies Allergy/AdvReac Type Severity Reaction Status Date / Time bupropion Allergy Rash Verified 06/09/25 19:07 haloperidol (From Haldol) Allergy Rash Verified 06/09/25 19:07 lactose Allergy Gastrointestinal Verified 06/09/25 19:07 Upset peanut Allergy Anaphylaxis Verified 06/09/25 19:07 ziprasidone Allergy Rash Verified 06/09/25 19:07 Assessment & Plan Assessment & Plan (1) Schizoaffective disorder, bipolar type: Status: Acute Code(s): F25.0 - Schizoaffective disorder, bipolar type (2) PTSD (post-traumatic stress disorder): Status: Acute Code(s): F43.10 - Post-traumatic stress disorder, unspecified (3) Coronary artery disease: Status: Acute Code(s): I25.10 - Atherosclerotic heart disease of [place] coronary artery without angina pectoris (4) Right knee pain: Status: Acute Code(s): M25.561 - Pain in right knee Plan Mr. Brink is a 59 y/o DWM with documented h/o schizophrenia, bipolar d/o, depression, PTSD, KASSIE, sleep apnea, HTN, CAD, hyponatremia, peripheral neuropathy, 3 NE's s/p CABG, unsteady gait, and type II DM who was brought to the [facility] ED due to AH and SI. He was transferred to [facility] for tx of severe depression, SI and psychotic sx. Plan: Admitted to [facility] for safety and stabilization Legal status- CV Admission medical consult ordered 5 minute safety checks due to fall risk. Uses a walker Meds- Continue current medications from long-term list for now: Clozaril 50 mg qhs Clozaril 300 mg qhs for now (grp home list says 'bid at hs' and external med rec shows 300 mg qhs) Effexor XR 75 mg qam *per external med rec, it looks like pt is cross titrating from venlafaxine to sertraline, was previously on 225 mg qd. Will continue cross titration after clarifying when the doses were last adjusted diphenhydramine 50 mg qhs prn for insomna hydroxyzine 50 mg q 8 hrs prn for anxiety sertraline 100 mg qd trazodone 100 mg qhs acetaminophen 975 mg bid ASA 81 mg qam budesonide-formoterol 2 inhalations qd Calcium-Vit D 500mg-5 mcg tabs, 2 tabs po bid docusate 100 mg bid folic acid 1 mg qam ibuprofen 800 mg q 8 hrs prn for pain lactase 9000 unit tablet tid magnesium oxide 400 mg bid metformin 500 mg qam methocarbamol 500 mg q 8 hrs for muscle pain metoprolol 50 mg bid MVI qd nitroglycerin 0.4 mg SL q 5 min prn for chest pain u pt 3 doses simethicone 80 mg 4x/day after meals and at hs sucralfate 1 g 4x/day before meals tamsulosin 0.8 mg qhs Vit B complex qam Vit D3 50 mcg qam Will consider ECT 06/11: Trial GBP 100 mg TID for anxiety and pain. 06/12: DC Gabapentin. Monitor urinary retention/incontinence. He is on Tamsulosin. Continue current management and treatment plan. 06/13: Will refer to ECT due to inadequate response to multiple psychotropic medication trials including: current regimen- clozapine 350 mg qd, sertraline 100 mg qd, venlafaxine (tapering off, was up to 225 mg qd), trazodone 100 mg qhs Prior med trials: Prozac, Cymbalta, Lamictal, Strattera, Zyprexa, Adderall ER, Invega Sustenna, VPA -Will request hospitalist consult for risk stratification for ECT -Taper venlafaxine to 37.5 mg starting tomorrow 06/14: ECT ordered for tomorrow am. NPO except for meds with sips of water after midnight. Medically cleared for ECT today by Alejandra Dangelo NP ECT risk stratification. Patient without previous problems with anesthesia, has previously undergone ECT RCRI 0 points, no further cardiac workup or treatment indicated at this time. Patient denies any past problems with anesthesia. EKG pending, no evidence of ischemic changes Based on stated PMH, HPI, and physical exam, there are no There are no obvious contraindications to the planned procedure. Patient with moderate risk due to advancing age and history of coronary artery disease. 06/15: Completed ECT #1 today (RUL) and tolerated it well. Will continue current tx plan for now, with ECT #2 scheduled for 06/17: Continue current tx plan. ECT #2 scheduled for tomorrow. NPO and ECT orders entered. 06/17: Did well w/ ECT #2. Ordered NPO for ECT #3 on Tuesday 06/19: Laying in bed most of day. Patient continues to report feeling depressed; he reports not sleeping well last night but is not clear for reason. denies SI/HI/VH. +AH telling me I'm going to . Encouraged to leave room. continue tx plan. 06/20: ECT #3 completed today. Endorses ongoing depressed mood without signif improvement. Continue current tx plan. ECT #4 scheduled for 06/22. ECT & NPO orders are entered for 06/22 06/21: Pt is agreeable w/ plan to d/c venlafaxine (seems to have started x- titration to sertraline during one of his inpt admissions). Will titrate standing dose of trazodone to 150 mg qhs. ECT #4 scheduled for tomorrow 06/22: Completed ECT #4. Now off venlafaxine. C/O constipation x 3 days. TW asked pt's nurse to give him MiraLax. Pt denies significant improvement in depression thus far. I explained that it's still early in the ECT series to expect a significant response. Medical necessity for continued inpatient psychiatric treatment: Continuation of ECT series for depression. Unable to engage in outpatient ECT since there are no ECT providing facilities near his long-term in [place]. Treatment failure with multiple psychotropic trials and previous positive reponse to ECT 06/23: Pt has noticed subtle improvement in his mood since starting ECT. Endorses some confusion and dissociative sx which could be related to ECT and/or discontinuing the venlafaxine. Will re-start venlafaxine 37.5 mg tomorrow am for more gradual taper to reduce discontinuation sx. Will d/c clozapine 25 mg am dose w/ plan to cross titrate to Seroquel, which was reportedly effective in the past for tx of depression and AH, also since pt has multiple SE from the clozapine without any noticeable benefit. Pt is agreeable w/ this tx plan 06/24: Mood gradually improving, brighter affect today. Will continue current med regimen for now and continue cross-titration over the weekend. ECT #5 done today. #6 scheduled for Fri, 06/27 06/25: Will start lorazepam 0.5 mg bid for tx of potential venlafaxine discontinuation syndrome +/- EPS. Advised pt to stand up slowly to reduce risk of falls. 06/26: Continue current tx plan. ECT #6 scheduled for tomorrow. NPO orders in 06/27: ECT cx'd after pt had an unwitnessed fall and reported hitting the back of his head. CT head showed no acute changes and EKG was unremarkable. Pt reported blacking out prior to falling, which has reportedly happened at his long-term also. He doesn't think any of the recent med changes contributed to the fall. As a precaution, will hold the Seroquel tonight since it was recently added. TW advised pt to sit up on his bed for a few minutes before standing in the morning and then stand up slowly and pt expressed an understanding and agreed. 06/28: Medically cleared by hospitalist to resume ECT. Input much appreciated. NPO orders in, ECT #6 scheduled for tomorrow. Pt c/o R knee pain after the fall Orthostatics ordered q 8 hrs x 24 hrs by hospitalist R knee xray on 06/28: was negative for any acute changes. signif for mild OA/osteopenia 06/29: Completed ECT #6 today. Mood is gradually improving. Will continue current med regimen. ECT #7 scheduled for Friday, 07/01 06/30: Mood is improving. ECT #7 scheduled for tomorrow. NPO order in. Continue current med regimen 07/01: Tolerated ECT #7 well. Orthostatics done earlier this week were neg. Continue current tx plan. ECT#8 scheduled for 07/04. NPO orders are in 07/02/25: Patient is in bed after lunch, pleasant and cooperative upon approach. Denies SI/SIB/HI/AVH but stating that he hears a little bit voices telling me I am dying . Reports anxiety and depression 03/03. Reports a little bit constipated but having last bowel movement was yesterday. Encourage fluid intake. Patient reports some shakiness twisting hand as side effect of medications. Reports ECTs helpful. 07/03/25: Patient spent most of the morning in bed, calm, pleasant and cooperative. Continue to report hand shaking and muscle twisting. Denies voices , denies SI/SIB/HI/VH. Report anxiety and depression a 03/03. Patient to have ECT tomorrow. Patient compliant with meds and slept for 8 hours per nursing. start Cogentin 0.5mg BID for possible EPS. 07/04/25: Twitching improved overall w/ addition of Cogentin per pt report. Continue current tx plan. ECT #9 scheduled for 07/06. Reason for continued inpatient stay Substantial Risk for: med/psych decompensation Time Spent With Patient Time: Total time managing care of this patient today ____ minutes.
[2025-07-05] MEDS: Venlafaxine HCl ER 37.5 MG CAP.ER.24H PO (08:47)
[2025-07-05] MEDS: Aspirin Enteric Coated 81 MG TABLET.DR PO (08:48)
[2025-07-05] MEDS: Calcium + Vitamin D 250 MG TABLET 500 MG PO ×2 (08:50→20:45)
[2025-07-05 08:57] VITALS: BP 131/80; PULSE 102; RESP 18; TEMP 36.5; O2SAT 97
--- NOTE | 2025-07-05 18:07 | PC.NURSE ---
Pt reported that he has a DNR in place. RN called jail at [phone] and requested it to be faxed over.
--- NOTE | 2025-07-05 19:02 | HO.PSYCHPN ---
Subjective Subjective Date of Service: 07/05/25 Reason For Visit: SI Interim History: Chart reviewed, case discussed with tx team Pt reports feeling depressed and confused today. He is a/o x 3 but feels off. He is agreeable w/ plan to cx ECT tomorrow due to possible cognitive SE. Pt endorses ongoing foot pain. Reports that he tries to walk on the unit but movement is limited by the pain. He did walk in the milieu after our meeting, utilizing his walker Per pt's nurse- pt requested to increase benzotropine for the intermittent twitching. Will hold off for now due to increased risk of cognitive SE. Medication Compliance: Yes Mental Status Exam Mental Status Exam Narrative: Appearance: sitting at desk eating banana. Grooming/hygiene fair. Good eye contact Attitude: Cooperative. Speech: Fluent and wnl in regard to volume, tone, prosody Motor activity: Calm. No twitching or other abnormal movements observed Mood: depressed Affect: appropriate, reactive, brightens up appropriately Thought process: goal directed and without evidence of formal thought disorder Thought content: as noted above Perception: does not appear to respond to internal stimuli Cognition grossly intact Insight: fair Judgment: intact Diagnostics Vital Signs (24Hr): Vital Signs - 24 hr 07/04/25 20:00 07/05/25 08:57 Temperature 97.9 F 97.7 F Pulse Rate 80 102 H Respiratory Rate 16 18 Blood Pressure 126/61 131/80 Pulse Oximetry 97 97 Oxygen Delivery Method Room Air Room Air BMI result Body Mass Index 27.8 Labs 06/27/25 11:19 06/27/25 11:19 Imaging Radiology Impressions: ITS Impressions Chest X-Ray 06/14/25 16:43 IMPRESSION: No evidence for acute disease in the chest. Electronically signed by: Concepcion Delarosa MD 06/14/2025 04:54 PM EDT RP Head CT 06/27/25 10:09 IMPRESSION: No acute fracture, bony calvarium. No acute intracranial hemorrhage. Atherosclerosis disease, intracranial. Electronically signed by: Pino Ponce MD 06/27/2025 10:44 AM EST RP Medications Medications Current Medications Acetaminophen (Acetaminophen 325 Mg Tablet) 975 mg PO BID PRN PRN Reason: Pain, Moderate(Pain Scale 4-6) Last Admin: 07/05/25 14:08 Dose: 975 mg Al Hydroxide/Mg Hydroxide (Magnesium Hydrox/Alum Hydrox 30 Ml Oral.Susp) 30 ml PO Q6H PRN PRN Reason: Heartburn/Nausea Last Admin: 06/30/25 12:21 Dose: 30 ml Aspirin (Aspirin Enteric Coated 81 Mg Tablet.Dr) 81 mg PO DAILY [facility] Last Admin: 07/05/25 08:48 Dose: 81 mg Atorvastatin Calcium (Atorvastatin Calcium 40 Mg Tablet) 40 mg PO BEDTIME [facility] Last Admin: 07/04/25 20:13 Dose: 40 mg Benztropine Mesylate (Benztropine Mesylate 0.5 Mg Tablet) 0.5 mg PO BID [facility] Last Admin: 07/05/25 08:49 Dose: 0.5 mg Budesonide (Budesonide 180 Mcg Aer.Pow.Ba) 2 puff INHALE RDAILY [facility] Last Admin: 07/05/25 08:52 Dose: Not Given Calcium Carbonate/Cholecalciferol (Calcium + Vitamin D 250 Mg Tablet) 500 mg PO BID [facility] Last Admin: 07/05/25 08:50 Dose: 500 mg Clozapine (Clozapine 100 Mg Tablet) 300 mg PO BEDTIME [facility] Last Admin: 07/04/25 20:14 Dose: 300 mg Diphenhydramine HCl (Diphenhydramine Hcl 25 Mg Capsule) 50 mg PO BEDTIME PRN PRN Reason: Insomnia Docusate Sodium (Docusate Sodium 100 Mg Capsule) 100 mg PO BID [facility] Last Admin: 07/05/25 08:47 Dose: 100 mg Famotidine (Famotidine 20 Mg Tablet) 20 mg PO BID [facility] Last Admin: 07/05/25 08:51 Dose: 20 mg Folic Acid (Folic Acid 1 Mg Tablet) 1 mg PO DAILY [facility] Last Admin: 07/05/25 08:50 Dose: 1 mg Hydroxyzine HCl (Hydroxyzine Hcl 50 Mg Tablet) 50 mg PO Q8H PRN PRN Reason: Anxiety Last Admin: 07/05/25 18:27 Dose: 50 mg Ibuprofen (Ibuprofen 800 Mg Tablet) 800 mg PO Q8H PRN PRN Reason: moderate pain Last Admin: 07/05/25 17:19 Dose: 800 mg Lactase (Lactase Tablet) 3 tab PO TIDWM [facility] Last Admin: 07/05/25 17:19 Dose: 3 tab Magnesium Hydroxide (Milk Of Magnesia 30 Ml Oral.Susp) 30 ml PO DAILY PRN PRN Reason: Constipation Magnesium Oxide (Magnesium Oxide 400 Mg Tablet) 400 mg PO BIDPC [facility] Last Admin: 07/05/25 17:20 Dose: 400 mg Metformin HCl (Metformin Hcl 500 Mg Tablet) 500 mg PO DAILY [facility] Last Admin: 07/05/25 08:50 Dose: 500 mg Methocarbamol (Methocarbamol 500 Mg Tablet) 500 mg PO TID PRN PRN Reason: severe pain Last Admin: 07/05/25 11:23 Dose: 500 mg Metoprolol Tartrate (Metoprolol Tartrate 50 Mg Tablet) 50 mg PO BID [facility]; Protocol Last Admin: 07/05/25 08:57 Dose: 50 mg Multivitamins/Vitamin C (Multivitamin Tablet) 1 tab PO DAILY [facility] Last Admin: 07/05/25 08:47 Dose: 1 tab Naloxone HCl (Naloxone Hcl 0.4 Mg/Ml Vial) 0.04 mg IVPUSH Q5M PRN PRN Reason: Excessive sedation or RR < 8 Nicotine Polacrilex (Nicotine Polacrilex 2 Mg Gum) 2 mg BUCCAL Q2H PRN PRN Reason: Nicotine Cravings Nitroglycerin (Nitroglycerin 0.4 Mg Tab.Subl) 0.4 mg SUBLINGUAL Q5MX3 PRN PRN Reason: chest pain Polyethylene Glycol (Polyethylene Glycol 3350 17 Gm Powd.Pack) 17 gm PO DAILY PRN PRN Reason: Constipation Last Admin: 06/22/25 14:56 Dose: 17 gm Sertraline HCl (Sertraline Hcl 100 Mg Tablet) 100 mg PO DAILY [facility] Last Admin: 07/05/25 08:51 Dose: 100 mg Simethicone (Simethicone 80 Mg Tab.Chew) 80 mg PO QIDWMHS [facility] Last Admin: 07/05/25 17:20 Dose: 80 mg Sucralfate (Sucralfate 1 Gm Tablet) 1 gm PO QIDACHS [facility] Last Admin: 07/05/25 17:20 Dose: 1 gm Tamsulosin HCl (Tamsulosin Hcl 0.4 Mg Capsule) 0.8 mg PO BEDTIME [facility] Last Admin: 07/04/25 20:15 Dose: 0.8 mg Trazodone HCl (Trazodone Hcl 50 Mg Tablet) 150 mg PO BEDTIME [facility] Last Admin: 07/04/25 20:13 Dose: 150 mg Trazodone HCl (Trazodone Hcl 50 Mg Tablet) 50 mg PO BEDTIME PRN PRN Reason: Insomnia Venlafaxine HCl (Venlafaxine Hcl Er 37.5 Mg Cap.Er.24h) 37.5 mg PO DAILY [facility] Last Admin: 07/05/25 08:47 Dose: 37.5 mg Vitamin D (Cholecalciferol (Vitamin D3) 25 Mcg Tablet) 50 mcg PO DAILY [facility] Last Admin: 07/05/25 08:50 Dose: 50 mcg Allergies Allergies Allergy/AdvReac Type Severity Reaction Status Date / Time bupropion Allergy Rash Verified 06/09/25 19:07 haloperidol (From Haldol) Allergy Rash Verified 06/09/25 19:07 lactose Allergy Gastrointestinal Verified 06/09/25 19:07 Upset peanut Allergy Anaphylaxis Verified 06/09/25 19:07 ziprasidone Allergy Rash Verified 06/09/25 19:07 Assessment & Plan Assessment & Plan (1) Schizoaffective disorder, bipolar type: Status: Acute Code(s): F25.0 - Schizoaffective disorder, bipolar type (2) PTSD (post-traumatic stress disorder): Status: Acute Code(s): F43.10 - Post-traumatic stress disorder, unspecified (3) Coronary artery disease: Status: Acute Code(s): I25.10 - Atherosclerotic heart disease of [place] coronary artery without angina pectoris (4) Right knee pain: Status: Acute Code(s): M25.561 - Pain in right knee Plan Mr. Brink is a 59 y/o DWM with documented h/o schizophrenia, bipolar d/o, depression, PTSD, KASSIE, sleep apnea, HTN, CAD, hyponatremia, peripheral neuropathy, 3 TN's s/p CABG, unsteady gait, and type II DM who was brought to the [facility] ED due to AH and SI. He was transferred to [facility] for tx of severe depression, SI and psychotic sx. Plan: Admitted to for safety and stabilization Legal status- CV Admission medical consult ordered 5 minute safety checks due to fall risk. Uses a walker Meds- Continue current medications from intermediate list for now: Clozaril 50 mg qhs Clozaril 300 mg qhs for now (grp home list says 'bid at hs' and external med rec shows 300 mg qhs) Effexor XR 75 mg qam *per external med rec, it looks like pt is cross titrating from venlafaxine to sertraline, was previously on 225 mg qd. Will continue cross titration after clarifying when the doses were last adjusted diphenhydramine 50 mg qhs prn for insomna hydroxyzine 50 mg q 8 hrs prn for anxiety sertraline 100 mg qd trazodone 100 mg qhs acetaminophen 975 mg bid ASA 81 mg qam budesonide-formoterol 2 inhalations qd Calcium-Vit D 500mg-5 mcg tabs, 2 tabs po bid docusate 100 mg bid folic acid 1 mg qam ibuprofen 800 mg q 8 hrs prn for pain lactase 9000 unit tablet tid magnesium oxide 400 mg bid metformin 500 mg qam methocarbamol 500 mg q 8 hrs for muscle pain metoprolol 50 mg bid MVI qd nitroglycerin 0.4 mg SL q 5 min prn for chest pain u pt 3 doses simethicone 80 mg 4x/day after meals and at hs sucralfate 1 g 4x/day before meals tamsulosin 0.8 mg qhs Vit B complex qam Vit D3 50 mcg qam Will consider ECT 06/11: Trial GBP 100 mg TID for anxiety and pain. 06/12: DC Gabapentin. Monitor urinary retention/incontinence. He is on Tamsulosin. Continue current management and treatment plan. 06/13: Will refer to ECT due to inadequate response to multiple psychotropic medication trials including: current regimen- clozapine 350 mg qd, sertraline 100 mg qd, venlafaxine (tapering off, was up to 225 mg qd), trazodone 100 mg qhs Prior med trials: Prozac, Cymbalta, Lamictal, Strattera, Zyprexa, Adderall ER, Invega Sustenna, VPA -Will request hospitalist consult for risk stratification for ECT -Taper venlafaxine to 37.5 mg starting tomorrow 06/14: ECT ordered for tomorrow am. NPO except for meds with sips of water after midnight. Medically cleared for ECT today by Alejandra Dangelo NP ECT risk stratification. Patient without previous problems with anesthesia, has previously undergone ECT RCRI 0 points, no further cardiac workup or treatment indicated at this time. Patient denies any past problems with anesthesia. EKG pending, no evidence of ischemic changes Based on stated PMH, HPI, and physical exam, there are no There are no obvious contraindications to the planned procedure. Patient with moderate risk due to advancing age and history of coronary artery disease. 06/15: Completed ECT #1 today (RUL) and tolerated it well. Will continue current tx plan for now, with ECT #2 scheduled for 06/17: Continue current tx plan. ECT #2 scheduled for tomorrow. NPO and ECT orders entered. 06/17: Did well w/ ECT #2. Ordered NPO for ECT #3 on Tuesday 06/19: Laying in bed most of day. Patient continues to report feeling depressed; he reports not sleeping well last night but is not clear for reason. denies SI/HI/VH. +AH telling me I'm going to . Encouraged to leave room. continue tx plan. 06/20: ECT #3 completed today. Endorses ongoing depressed mood without signif improvement. Continue current tx plan. ECT #4 scheduled for 06/22. ECT & NPO orders are entered for 06/22 06/21: Pt is agreeable w/ plan to d/c venlafaxine (seems to have started x-titration to sertraline during one of his inpt admissions). Will titrate standing dose of trazodone to 150 mg qhs. ECT #4 scheduled for tomorrow 06/22: Completed ECT #4. Now off venlafaxine. C/O constipation x 3 days. TW asked pt's nurse to give him MiraLax. Pt denies significant improvement in depression thus far. I explained that it's still early in the ECT series to expect a significant response. Medical necessity for continued inpatient psychiatric treatment: Continuation of ECT series for depression. Unable to engage in outpatient ECT since there are no ECT providing facilities near his intermediate in [place]. Treatment failure with multiple psychotropic trials and previous positive reponse to ECT 06/23: Pt has noticed subtle improvement in his mood since starting ECT. Endorses some confusion and dissociative sx which could be related to ECT and/or discontinuing the venlafaxine. Will re-start venlafaxine 37.5 mg tomorrow am for more gradual taper to reduce discontinuation sx. Will d/c clozapine 25 mg am dose w/ plan to cross titrate to Seroquel, which was reportedly effective in the past for tx of depression and AH, also since pt has multiple SE from the clozapine without any noticeable benefit. Pt is agreeable w/ this tx plan 06/24: Mood gradually improving, brighter affect today. Will continue current med regimen for now and continue cross-titration over the weekend. ECT #5 done today. #6 scheduled for 06/27: Will start lorazepam 0.5 mg bid for tx of potential venlafaxine discontinuation syndrome +/- EPS. Advised pt to stand up slowly to reduce risk of falls. 06/26: Continue current tx plan. ECT #6 scheduled for tomorrow. NPO orders in 06/27: ECT cx'd after pt had an unwitnessed fall and reported hitting the back of his head. CT head showed no acute changes and EKG was unremarkable. Pt reported blacking out prior to falling, which has reportedly happened at his intermediate also. He doesn't think any of the recent med changes contributed to the fall. As a precaution, will hold the Seroquel tonight since it was recently added. TW advised pt to sit up on his bed for a few minutes before standing in the morning and then stand up slowly and pt expressed an understanding and agreed. 06/28: Medically cleared by hospitalist to resume ECT. Input much appreciated. NPO orders in, ECT #6 scheduled for tomorrow. Pt c/o R knee pain after the fall Orthostatics ordered q 8 hrs x 24 hrs by hospitalist R knee xray on 06/28: was negative for any acute changes. signif for mild OA/osteopenia 06/29: Completed ECT #6 today. Mood is gradually improving. Will continue current med regimen. ECT #7 scheduled for Friday, 07/01 06/30: Mood is improving. ECT #7 scheduled for tomorrow. NPO order in. Continue current med regimen 07/01: Tolerated ECT #7 well. Orthostatics done earlier this week were neg. Continue current tx plan. ECT#8 scheduled for Friday, 07/04. NPO orders are in 07/02/25: Patient is in bed after lunch, pleasant and cooperative upon approach. Denies SI/SIB/HI/AVH but stating that he hears a little bit voices telling me I am dying . Reports anxiety and depression 03/03. Reports a little bit constipated but having last bowel movement was yesterday. Encourage fluid intake. Patient reports some shakiness twisting hand as side effect of medications. Reports ECTs helpful. 07/03/25: Patient spent most of the morning in bed, calm, pleasant and cooperative. Continue to report hand shaking and muscle twisting. Denies voices , denies SI/SIB/HI/VH. Report anxiety and depression a 03/03. Patient to have ECT tomorrow. Patient compliant with meds and slept for 8 hours per nursing. start Cogentin 0.5mg BID for possible EPS. 07/04/25: Twitching improved overall w/ addition of Cogentin per pt report. Continue current tx plan. ECT #9 scheduled for Fri, 07/06. 07/05: Cancelled ECT for tomorrow 2/2 reports of confusion. Will do MoCA tomorrow. Hold off on increasing Cogentin due to risk of worsening cognitive SE Informed Consent: understands Reason for continued inpatient stay Substantial Risk for: med/psych decompensation Time Spent With Patient Time: Total time managing care of this patient today ____ minutes.
[2025-07-05 20:00] VITALS: BP 124/61; PULSE 80; RESP 16; TEMP 36.3; O2SAT 97
[2025-07-05 20:46] VITALS: BP 124/61; PULSE 80
[2025-07-06 07:41] VITALS: BP 122/71; PULSE 101; RESP 18; TEMP 36.5; O2SAT 98
[2025-07-06] MEDS: Aspirin Enteric Coated 81 MG TABLET.DR PO (09:09)
[2025-07-06] MEDS: Venlafaxine HCl ER 37.5 MG CAP.ER.24H PO (09:09)
[2025-07-06 09:10] VITALS: BP 130/61; PULSE 99
[2025-07-06] MEDS: Calcium + Vitamin D 250 MG TABLET 500 MG PO ×2 (09:10→20:00)
--- NOTE | 2025-07-06 15:48 | HO.PM.IMPN ---
Subjective Subjective Date of Service: 07/06/25 Interval History: Patient was seen for status post fall 06/28, at that time he reported right knee pain. Patient's knee x-ray was negative for any osseous abnormality. Still has mild swelling. Patient has been ambulating at baseline with his walker and has good bed mobility. Rises without assistance to a sitting position. Able to stand without assistance. Patient is reporting right hip pain today. Feels that his hips been painful since the fall. This movie writer was notified of this. We will check an x-ray to rule out any fracture. Patient with no obvious deformities, no leg length discrepancy, reports mild tenderness to right hip. Stands and ambulates at baseline. He otherwise feels well. Review of Systems Denies any shortness of breath, chest pain, headaches, dysuria, abdominal pain or discomfort, nausea, vomiting or diarrhea. Denies fever or chills. Physical Exam Exam: Exam: Alert and oriented X3, calm and cooperative. Answers questions. Neuro: CN II-X11 intact, no deficits, visual acuity intact EYES: PERRLA, EOM intact ENT: Hearing intact, MMM Cardiac: S1 S2 RRR, No ectopy Pulmonary: lungs clear to auscultation, No increased WOB. Abdominal: BS active in all 4 quadrants, no guarding or tenderness MSK: Strength 5/5 upper and lower extremities. Full range of motion, no evidence of injury. Mild tenderness to palpation. Ambulating at baseline : Deferred Extremities: No edema in lower extremities, trace edema to right knee Psych: Mood stable, Quiet and cooperative. Skin: Warm and dry, Intact Vital Signs: Vital Signs: Last Vital Signs Temp 97.7 F 07/06/25 07:41 Pulse 99 07/06/25 09:10 Resp 18 07/06/25 07:41 BP 130/61 07/06/25 09:10 Pulse Ox 98 07/06/25 07:41 O2 Del Method Room Air 07/06/25 07:41 O2 Flow Rate 0 07/01/25 08:50 BMI result Body Mass Index 27.8 Objective Data Active Medications Acetaminophen (Acetaminophen 325 Mg Tablet) 975 mg PO BID PRN PRN Reason: Pain, Moderate(Pain Scale 4-6) Last Admin: 07/05/25 14:08 Dose: 975 mg Documented By: HO.RICCIG Al Hydroxide/Mg Hydroxide (Magnesium Hydrox/Alum Hydrox 30 Ml Oral.Susp) 30 ml PO Q6H PRN PRN Reason: Heartburn/Nausea Last Admin: 06/30/25 12:21 Dose: 30 ml Documented By: KHOI Aspirin (Aspirin Enteric Coated 81 Mg Tablet.) 81 mg PO DAILY [facility] Last Admin: 07/06/25 09:09 Dose: 81 mg Documented By: KHOI Atorvastatin Calcium (Atorvastatin Calcium 40 Mg Tablet) 40 mg PO BEDTIME [facility] Last Admin: 07/05/25 20:46 Dose: 40 mg Documented By: MAURI Benztropine Mesylate (Benztropine Mesylate 0.5 Mg Tablet) 0.5 mg PO BID [facility] Last Admin: 07/06/25 09:09 Dose: 0.5 mg Documented By: KHOI Budesonide (Budesonide 180 Mcg Aer.Pow.Ba) 2 puff INHALE RDAILY [facility] Last Admin: 07/06/25 09:08 Dose: Not Given Documented By: KHOI Non-Admin Reason: Patient Refused Calcium Carbonate/Cholecalciferol (Calcium + Vitamin D 250 Mg Tablet) 500 mg PO BID [facility] Last Admin: 07/06/25 09:10 Dose: 500 mg Documented By: KHOI Clozapine (Clozapine 100 Mg Tablet) 300 mg PO BEDTIME [facility] Last Admin: 07/05/25 20:46 Dose: 300 mg Documented By: MAURI Diphenhydramine HCl (Diphenhydramine Hcl 25 Mg Capsule) 50 mg PO BEDTIME PRN PRN Reason: Insomnia Docusate Sodium (Docusate Sodium 100 Mg Capsule) 100 mg PO BID [facility] Last Admin: 07/06/25 09:08 Dose: 100 mg Documented By: KHOI Famotidine (Famotidine 20 Mg Tablet) 20 mg PO BID [facility] Last Admin: 07/06/25 09:08 Dose: 20 mg Documented By: KHOI Folic Acid (Folic Acid 1 Mg Tablet) 1 mg PO DAILY [facility] Last Admin: 07/06/25 09:09 Dose: 1 mg Documented By: KHOI Hydroxyzine HCl (Hydroxyzine Hcl 50 Mg Tablet) 50 mg PO Q8H PRN PRN Reason: Anxiety Last Admin: 07/06/25 11:53 Dose: 50 mg Documented By: KHOI Ibuprofen (Ibuprofen 800 Mg Tablet) 800 mg PO Q8H PRN PRN Reason: moderate pain Last Admin: 07/05/25 17:19 Dose: 800 mg Documented By: LYNN Lactase (Lactase Tablet) 3 tab PO TIDWM [facility] Last Admin: 07/06/25 11:53 Dose: 3 tab Documented By: KHOI Magnesium Hydroxide (Milk Of Magnesia 30 Ml Oral.Susp) 30 ml PO DAILY PRN PRN Reason: Constipation Magnesium Oxide (Magnesium Oxide 400 Mg Tablet) 400 mg PO BIDPC [facility] Last Admin: 07/06/25 09:09 Dose: 400 mg Documented By: KHOI Metformin HCl (Metformin Hcl 500 Mg Tablet) 500 mg PO DAILY [facility] Last Admin: 07/06/25 09:10 Dose: 500 mg Documented By: KHOI Methocarbamol (Methocarbamol 500 Mg Tablet) 500 mg PO TID PRN PRN Reason: severe pain Last Admin: 07/06/25 09:22 Dose: 500 mg Documented By: KHOI Metoprolol Tartrate (Metoprolol Tartrate 50 Mg Tablet) 50 mg PO BID [facility]; Protocol Last Admin: 07/06/25 09:10 Dose: 50 mg Documented By: KHOI Multivitamins/Vitamin C (Multivitamin Tablet) 1 tab PO DAILY [facility] Last Admin: 07/06/25 09:09 Dose: 1 tab Documented By: KHOI Naloxone HCl (Naloxone Hcl 0.4 Mg/Ml Vial) 0.04 mg IVPUSH Q5M PRN PRN Reason: Excessive sedation or RR < 8 Nicotine Polacrilex (Nicotine Polacrilex 2 Mg Gum) 2 mg BUCCAL Q2H PRN PRN Reason: Nicotine Cravings Nitroglycerin (Nitroglycerin 0.4 Mg Tab.Subl) 0.4 mg SUBLINGUAL Q5MX3 PRN PRN Reason: chest pain Polyethylene Glycol (Polyethylene Glycol 3350 17 Gm Powd.Pack) 17 gm PO DAILY PRN PRN Reason: Constipation Last Admin: 06/22/25 14:56 Dose: 17 gm Documented By: LYNN Sertraline HCl (Sertraline Hcl 100 Mg Tablet) 100 mg PO DAILY [facility] Last Admin: 07/06/25 09:09 Dose: 100 mg Documented By: KHOI Simethicone (Simethicone 80 Mg Tab.Chew) 80 mg PO QIDWMHS [facility] Last Admin: 07/06/25 11:53 Dose: 80 mg Documented By: KHOI Sucralfate (Sucralfate 1 Gm Tablet) 1 gm PO QIDACHS [facility] Last Admin: 07/06/25 11:53 Dose: 1 gm Documented By: KHOI Tamsulosin HCl (Tamsulosin Hcl 0.4 Mg Capsule) 0.8 mg PO BEDTIME [facility] Last Admin: 07/05/25 20:46 Dose: 0.8 mg Documented By: MAURI Trazodone HCl (Trazodone Hcl 50 Mg Tablet) 150 mg PO BEDTIME [facility] Last Admin: 07/05/25 20:45 Dose: 150 mg Documented By: MAURI Trazodone HCl (Trazodone Hcl 50 Mg Tablet) 50 mg PO BEDTIME PRN PRN Reason: Insomnia Venlafaxine HCl (Venlafaxine Hcl Er 37.5 Mg Cap.Er.24h) 37.5 mg PO DAILY [facility] Last Admin: 07/06/25 09:09 Dose: 37.5 mg Documented By: KHOI Vitamin D (Cholecalciferol (Vitamin D3) 25 Mcg Tablet) 50 mcg PO DAILY [facility] Last Admin: 07/06/25 09:10 Dose: 50 mcg Documented By: KHOI Labs 06/27/25 11:19 06/27/25 11:19 Assessment and Plan (1) Right hip pain: Status: Acute (2) Right knee pain: Status: Acute Plan 59-year-old male with medical history listed below presented to the ED with increased depression and suicidal ideation. Now admitted to inpatient psych for mood stabilization. Bipolar disorder/Psychosis/Anxiety/Depression/schizoaffective disorder/history of substance use disorder Treatment per psychiatric team Patient okay to resume ECT treatments Fall with head strike 06/28 with right knee pain, now with right hip pain. CT negative for any abnormality Labs are stable Right knee negative for any fracture, remains swollen-we will check ultrasound to rule out DVT Right hip pain-x-ray to rule out fracture BPH Followed by urology outpatient Continue Flomax Type 2 diabetes Diet controlled Recent A1c 5.6 CAD/HLD/HTN/patient with history of a stroke/GA 2014, status post CABG Continue aspirin, atorvastatin, and metoprolol Follows cardiology outpatient Pressures are stable History of sleep apnea Denies use of CPAP Chronic pain disorder/peripheral neuropathy/right foot fracture Continue with duloxetine Ambulating with a walker Follows Orthopedics outpatient Right common iliac artery aneurysm Followed by vascular yearly Monitor for any evidence of PAD including claudication or ulcers Continue statin and aspirin Thank you for allowing me to participate in the care of this patient. Will follow with you, please notify medical provider with any changes in condition or concerns. Quality Stroke Does the patient have a stroke diagnosis?: No VTE Prior VTE?: No VTE Risk Level:: Medical - low VTE Device Contraindication: Treatment Not Indicated VTE Drug Contraindication: N/A - Med Ordered
--- NOTE | 2025-07-06 18:49 | P.PNPSI_ITS ---
Subjective Subjective Date of Service: 07/06/25 Reason For Visit: SI Interim History: Chart reviewed. case discussed in team Per team discussion- somatically preoccupied Pt c/o R hip pain, states he thinks he broke it when he fell last wk. This is the first time he reported it to t/w. Pt was seen by the hospitalist, who ordered R hip xray- seems to be neg but radiology report pending- and venous duplex (neg) Pt reports feeling 'depressed....sorry I'm a tough nut to crack . Does feel better overall since admission. Agreeable w/ plan to resume ECT on Friday. MoCA conducted by [employer] student today- Scored 22/30 + 1 point for <12 grade education (dropped out in 12th grade due to PE requirement) Visuospatial- 2/5. [place] was correct and clock countour was acceptable. Hands of the clock pointed to correct numbers but were same length, clock numbers were correct but not totally in correct quadrants Naming 3/ Attention 01/28 Language: 2/3 (only got 7 words on fluency) Abstraction: 1/2 Delayed recall 2/5 without cue. 2 with categorical cue. 1 w/ MCQ cue Orientation 01/28 Mental Status Exam Mental Status Exam Narrative: Appearance: lying in bed, dressed in hospital fior, good eye contact Attitude: Cooperative. Speech: Fluent and wnl in regard to volume, tone, prosody Motor activity: Calm. No twitching or other abnormal movements observed Mood: depressed Affect: superficially bright Thought process: goal directed and without evidence of formal thought disorder Thought content: denies SI. somatically preoccupied Perception: does not appear to respond to internal stimuli Cognition grossly intact Insight: fair Judgment: intact Diagnostics Vital Signs (24Hr): Vital Signs - 24 hr 07/05/25 20:00 07/05/25 20:46 07/06/25 07:41 Temperature 97.3 F 97.7 F Pulse Rate 80 80 101 H Respiratory Rate 16 18 Blood Pressure 124/61 124/61 122/71 Pulse Oximetry 97 98 Oxygen Delivery Method Room Air Room Air 07/06/25 09:10 Temperature Pulse Rate 99 Respiratory Rate Blood Pressure 130/61 Pulse Oximetry Oxygen Delivery Method BMI result Body Mass Index 27.8 Labs 06/27/25 11:19 06/27/25 11:19 Imaging Radiology Impressions: ITS Impressions Chest X-Ray 10/21/25 16:43 IMPRESSION: No evidence for acute disease in the chest. Electronically signed by: Concepcion Delarosa MD 06/14/2025 04:54 PM EDT RP Head CT 06/27/25 10:09 IMPRESSION: No acute fracture, bony calvarium. No acute intracranial hemorrhage. Atherosclerosis disease, intracranial. Electronically signed by: Pino Ponce MD 06/27/2025 10:44 AM EST RP Medications Medications Current Medications Acetaminophen (Acetaminophen 325 Mg Tablet) 975 mg PO BID PRN PRN Reason: Pain, Moderate(Pain Scale 4-6) Last Admin: 07/06/25 16:12 Dose: 975 mg Al Hydroxide/Mg Hydroxide (Magnesium Hydrox/Alum Hydrox 30 Ml Oral.Susp) 30 ml PO Q6H PRN PRN Reason: Heartburn/Nausea Last Admin: 06/30/25 12:21 Dose: 30 ml Aspirin (Aspirin Enteric Coated 81 Mg Tablet.Dr) 81 mg PO DAILY [facility] Last Admin: 07/06/25 09:09 Dose: 81 mg Atorvastatin Calcium (Atorvastatin Calcium 40 Mg Tablet) 40 mg PO BEDTIME [facility] Last Admin: 07/05/25 20:46 Dose: 40 mg Benztropine Mesylate (Benztropine Mesylate 0.5 Mg Tablet) 0.5 mg PO BID [facility] Last Admin: 07/06/25 09:09 Dose: 0.5 mg Budesonide (Budesonide 180 Mcg Aer.Pow.Ba) 2 puff INHALE RDAILY [facility] Last Admin: 07/06/25 09:08 Dose: Not Given Calcium Carbonate/Cholecalciferol (Calcium + Vitamin D 250 Mg Tablet) 500 mg PO BID [facility] Last Admin: 07/06/25 09:10 Dose: 500 mg Clozapine (Clozapine 100 Mg Tablet) 300 mg PO BEDTIME [facility] Last Admin: 07/05/25 20:46 Dose: 300 mg Diphenhydramine HCl (Diphenhydramine Hcl 25 Mg Capsule) 50 mg PO BEDTIME PRN PRN Reason: Insomnia Docusate Sodium (Docusate Sodium 100 Mg Capsule) 100 mg PO BID [facility] Last Admin: 07/06/25 09:08 Dose: 100 mg Famotidine (Famotidine 20 Mg Tablet) 20 mg PO BID [facility] Last Admin: 07/06/25 09:08 Dose: 20 mg Folic Acid (Folic Acid 1 Mg Tablet) 1 mg PO DAILY [facility] Last Admin: 07/06/25 09:09 Dose: 1 mg Hydroxyzine HCl (Hydroxyzine Hcl 50 Mg Tablet) 50 mg PO Q8H PRN PRN Reason: Anxiety Last Admin: 07/06/25 11:53 Dose: 50 mg Ibuprofen (Ibuprofen 800 Mg Tablet) 800 mg PO Q8H PRN PRN Reason: moderate pain Last Admin: 07/05/25 17:19 Dose: 800 mg Lactase (Lactase Tablet) 3 tab PO TIDWM [facility] Last Admin: 07/06/25 16:12 Dose: 3 tab Magnesium Hydroxide (Milk Of Magnesia 30 Ml Oral.Susp) 30 ml PO DAILY PRN PRN Reason: Constipation Magnesium Oxide (Magnesium Oxide 400 Mg Tablet) [facility] Last Admin: 07/06/25 17:28 Dose: 400 mg Metformin HCl (Metformin Hcl 500 Mg Tablet) 500 mg PO DAILY [facility] Last Admin: 07/06/25 09:10 Dose: 500 mg Methocarbamol (Methocarbamol 500 Mg Tablet) 500 mg PO TID PRN PRN Reason: severe pain Last Admin: 07/06/25 17:28 Dose: 500 mg Metoprolol Tartrate (Metoprolol Tartrate 50 Mg Tablet) 50 mg PO BID [facility]; Protocol Last Admin: 07/06/25 09:10 Dose: 50 mg Multivitamins/Vitamin C (Multivitamin Tablet) 1 tab PO DAILY [facility] Last Admin: 07/06/25 09:09 Dose: 1 tab Naloxone HCl (Naloxone Hcl 0.4 Mg/Ml Vial) 0.04 mg IVPUSH Q5M PRN PRN Reason: Excessive sedation or RR < 8 Nicotine Polacrilex (Nicotine Polacrilex 2 Mg Gum) 2 mg BUCCAL Q2H PRN PRN Reason: Nicotine Cravings Nitroglycerin (Nitroglycerin 0.4 Mg Tab.Subl) 0.4 mg SUBLINGUAL Q5MX3 PRN PRN Reason: chest pain Polyethylene Glycol (Polyethylene Glycol 3350 17 Gm Powd.Pack) 17 gm PO DAILY PRN PRN Reason: Constipation Last Admin: 06/22/25 14:56 Dose: 17 gm Sertraline HCl (Sertraline Hcl 100 Mg Tablet) 100 mg PO DAILY [facility] Last Admin: 07/06/25 09:09 Dose: 100 mg Simethicone (Simethicone 80 Mg Tab.Chew) 80 mg PO QIDWMHS [facility] Last Admin: 07/06/25 16:12 Dose: 80 mg Sucralfate (Sucralfate 1 Gm Tablet) 1 gm PO QIDACHS [facility] Last Admin: 07/06/25 16:12 Dose: 1 gm Tamsulosin HCl (Tamsulosin Hcl 0.4 Mg Capsule) 0.8 mg PO BEDTIME [facility] Last Admin: 07/05/25 20:46 Dose: 0.8 mg Trazodone HCl (Trazodone Hcl 50 Mg Tablet) 150 mg PO BEDTIME [facility] Last Admin: 07/05/25 20:45 Dose: 150 mg Trazodone HCl (Trazodone Hcl 50 Mg Tablet) 50 mg PO BEDTIME PRN PRN Reason: Insomnia Venlafaxine HCl (Venlafaxine Hcl Er 37.5 Mg Cap.Er.24h) 37.5 mg PO DAILY [facility] Last Admin: 07/06/25 09:09 Dose: 37.5 mg Vitamin D (Cholecalciferol (Vitamin D3) 25 Mcg Tablet) 50 mcg PO DAILY [facility] Last Admin: 07/06/25 09:10 Dose: 50 mcg Allergies Allergies Allergy/AdvReac Type Severity Reaction Status Date / Time bupropion Allergy Rash Verified 06/09/25 19:07 haloperidol (From Haldol) Allergy Rash Verified 06/09/25 19:07 lactose Allergy Gastrointestinal Verified 06/09/25 19:07 Upset peanut Allergy Anaphylaxis Verified 06/09/25 19:07 ziprasidone Allergy Rash Verified 06/09/25 19:07 Assessment & Plan Assessment & Plan (1) Schizoaffective disorder, bipolar type: Status: Acute Code(s): F25.0 - Schizoaffective disorder, bipolar type (2) PTSD (post-traumatic stress disorder): Status: Acute Code(s): F43.10 - Post-traumatic stress disorder, unspecified (3) Right hip pain: Status: Acute Code(s): M25.551 - Pain in right hip (4) Right knee pain: Status: Acute Code(s): M25.561 - Pain in right knee Plan Mr. Brink is a 59 y/o DWM with documented h/o schizophrenia, bipolar d/o, depression, PTSD, KASSIE, sleep apnea, HTN, CAD, hyponatremia, peripheral neuropathy, 3 SD's s/p CABG, unsteady gait, and type II DM who was brought to the [facility] ED due to AH and SI. He was transferred to [facility] for tx of severe depression, SI and psychotic sx. Plan: Admitted to [facility] for safety and stabilization Legal status- CV Admission medical consult ordered 5 minute safety checks due to fall risk. Uses a walker Meds- Continue current medications from assisted list for now: Clozaril 50 mg qhs Clozaril 300 mg qhs for now (grp home list says 'bid at hs' and external med rec shows 300 mg qhs) Effexor XR 75 mg qam *per external med rec, it looks like pt is cross titrating from venlafaxine to sertraline, was previously on 225 mg qd. Will continue cross titration after clarifying when the doses were last adjusted diphenhydramine 50 mg qhs prn for insomna hydroxyzine 50 mg q 8 hrs prn for anxiety sertraline 100 mg qd trazodone 100 mg qhs acetaminophen 975 mg bid ASA 81 mg qam budesonide-formoterol 2 inhalations qd Calcium-Vit D 500mg-5 mcg tabs, 2 tabs po bid docusate 100 mg bid folic acid 1 mg qam ibuprofen 800 mg q 8 hrs prn for pain lactase 9000 unit tablet tid magnesium oxide 400 mg bid metformin 500 mg qam methocarbamol 500 mg q 8 hrs for muscle pain metoprolol 50 mg bid MVI qd nitroglycerin 0.4 mg SL q 5 min prn for chest pain u pt 3 doses simethicone 80 mg 4x/day after meals and at hs sucralfate 1 g 4x/day before meals tamsulosin 0.8 mg qhs Vit B complex qam Vit D3 50 mcg qam Will consider ECT 06/11: Trial GBP 100 mg TID for anxiety and pain. 06/12: TYE Gabapentin. Monitor urinary retention/incontinence. He is on Tamsulosin. Continue current management and treatment plan. 06/13: Will refer to ECT due to inadequate response to multiple psychotropic medication trials including: current regimen- clozapine 350 mg qd, sertraline 100 mg qd, venlafaxine (tapering off, was up to 225 mg qd), trazodone 100 mg qhs Prior med trials: Prozac, Cymbalta, Lamictal, Strattera, Zyprexa, Adderall ER, Invega Sustenna, VPA -Will request hospitalist consult for risk stratification for ECT -Taper venlafaxine to 37.5 mg starting tomorrow 06/14: ECT ordered for tomorrow am. NPO except for meds with sips of water after midnight. Medically cleared for ECT today by Alejandra Dangelo NP ECT risk stratification. Patient without previous problems with anesthesia, has previously undergone ECT RCRI 0 points, no further cardiac workup or treatment indicated at this time. Patient denies any past problems with anesthesia. EKG pending, no evidence of ischemic changes Based on stated PMH, HPI, and physical exam, there are no There are no obvious contraindications to the planned procedure. Patient with moderate risk due to advancing age and history of coronary artery disease. 06/15: Completed ECT #1 today (RUL) and tolerated it well. Will continue current tx plan for now, with ECT #2 scheduled for 06/17: Continue current tx plan. ECT #2 scheduled for tomorrow. NPO and ECT orders entered. 06/17: Did well w/ ECT #2. Ordered NPO for ECT #3 on Tuesday 06/19: Laying in bed most of day. Patient continues to report feeling depressed; he reports not sleeping well last night but is not clear for reason. denies SI/HI/VH. +AH telling me I'm going to . Encouraged to leave room. continue tx plan. 06/20: ECT #3 completed today. Endorses ongoing depressed mood without signif improvement. Continue current tx plan. ECT #4 scheduled for 06/22. ECT & NPO orders are entered for 06/22 06/21: Pt is agreeable w/ plan to d/c venlafaxine (seems to have started x- titration to sertraline during one of his inpt admissions). Will titrate standing dose of trazodone to 150 mg qhs. ECT #4 scheduled for tomorrow 06/22: Completed ECT #4. Now off venlafaxine. C/O constipation x 3 days. TW asked pt's nurse to give him MiraLax. Pt denies significant improvement in depression thus far. I explained that it's still early in the ECT series to expect a significant response. Medical necessity for continued inpatient psychiatric treatment: Continuation of ECT series for depression. Unable to engage in outpatient ECT since there are no ECT providing facilities near his assisted in [place]. Treatment failure with multiple psychotropic trials and previous positive reponse to ECT 06/23: Pt has noticed subtle improvement in his mood since starting ECT. Endorses some confusion and dissociative sx which could be related to ECT and/or discontinuing the venlafaxine. Will re-start venlafaxine 37.5 mg tomorrow am for more gradual taper to reduce discontinuation sx. Will d/c clozapine 25 mg am dose w/ plan to cross titrate to Seroquel, which was reportedly effective in the past for tx of depression and AH, also since pt has multiple SE from the clozapine without any noticeable benefit. Pt is agreeable w/ this tx plan 06/24: Mood gradually improving, brighter affect today. Will continue current med regimen for now and continue cross-titration over the weekend. ECT #5 done today. #6 scheduled for Fri, 06/27 06/25: Will start lorazepam 0.5 mg bid for tx of potential venlafaxine discontinuation syndrome +/- EPS. Advised pt to stand up slowly to reduce risk of falls. 06/26: Continue current tx plan. ECT #6 scheduled for tomorrow. NPO orders in 06/27: ECT cx'd after pt had an unwitnessed fall and reported hitting the back of his head. CT head showed no acute changes and EKG was unremarkable. Pt reported blacking out prior to falling, which has reportedly happened at his assisted also. He doesn't think any of the recent med changes contributed to the fall. As a precaution, will hold the Seroquel tonight since it was recently added. TW advised pt to sit up on his bed for a few minutes before standing in the morning and then stand up slowly and pt expressed an understanding and agreed. 06/28: Medically cleared by hospitalist to resume ECT. Input much appreciated. NPO orders in, ECT #6 scheduled for tomorrow. Pt c/o R knee pain after the fall Orthostatics ordered q 8 hrs x 24 hrs by hospitalist R knee xray on 06/28: was negative for any acute changes. signif for mild OA/osteopenia 06/29: Completed ECT #6 today. Mood is gradually improving. Will continue current med regimen. ECT #7 scheduled for Friday, 07/01 06/30: Mood is improving. ECT #7 scheduled for tomorrow. NPO order in. Continue current med regimen 07/01: Tolerated ECT #7 well. Orthostatics done earlier this week were neg. Continue current tx plan. ECT#8 scheduled for Friday, 07/04. NPO orders are in 07/02/25: Patient is in bed after lunch, pleasant and cooperative upon approach. Denies SI/SIB/HI/AVH but stating that he hears a little bit voices telling me I am dying . Reports anxiety and depression 03/03. Reports a little bit constipated but having last bowel movement was yesterday. Encourage fluid intake. Patient reports some shakiness twisting hand as side effect of medications. Reports ECTs helpful. 07/03/25: Patient spent most of the morning in bed, calm, pleasant and cooperative. Continue to report hand shaking and muscle twisting. Denies voices , denies SI/SIB/HI/VH. Report anxiety and depression a 03/03. Patient to have ECT tomorrow. Patient compliant with meds and slept for 8 hours per nursing. start Cogentin 0.5mg BID for possible EPS. 07/04/25: Twitching improved overall w/ addition of Cogentin per pt report. Continue current tx plan. ECT #9 scheduled for Fri, 07/06. 07/05: Cancelled ECT for tomorrow 2/2 reports of confusion. Will do MoCA tomorrow. Hold off on increasing Cogentin due to risk of worsening cognitive SE Informed Consent: understands 07/06: c/o R hip pain that he attributed to fall last wk. R hip xray done, seems to be neg but awaiting radiology report. LE venous duplex neg for DVT. MoCA done today- . Will increase cogentin to 1 mg bid per pt request, monitor for cognitive SE. Will schedule next ECT for Friday Patient educated on: therapeutic strategies Informed Consent: understands Reason for continued inpatient stay Substantial Risk for: med/psych decompensation Time Spent With Patient Time: Total time managing care of this patient today ____ minutes.
[2025-07-06 20:00] VITALS: BP 105/72; PULSE 83; RESP 18; TEMP 36.3; O2SAT 97
[2025-07-06 20:01] VITALS: BP 105/72; PULSE 83
[2025-07-07] MEDS: Calcium + Vitamin D 250 MG TABLET 500 MG PO ×2 (08:48→21:15)
[2025-07-07] MEDS: Aspirin Enteric Coated 81 MG TABLET.DR PO (08:50)
[2025-07-07] MEDS: Venlafaxine HCl ER 37.5 MG CAP.ER.24H PO (08:51)
[2025-07-07 09:23] VITALS: BP 107/69; PULSE 92; RESP 20; TEMP 36.2; O2SAT 98
[2025-07-07 10:24] LABS: Neut%MD 66.2 %; WBCANC 7.0 X10*3/uL
--- NOTE | 2025-07-07 10:56 | HO.PSYCHPN ---
Subjective Subjective Date of Service: 07/07/25 Reason For Visit: SI Subjective Notes: Conditional Voluntary Interim History: Chart reviewed, case discussed in team Pt was in the milieu when t/w met w/ him, as he was encouraged to leave his room by SW earlier today. He reports that it's hard to get out of bed due to pain. Reports feeling 'okay'. Denies SI. T/W updated him on the neg R hip xray and neg duplex results Pt is aware that SW will be meeting w/ his [facility] staff on Friday. Discussed likely plan to d/c late next wk and pt was accepting of this. He reports that he doesn't like his grp home but also couldn't live on his own. Per [facility], his [facility] staff has been working on transitioning pt to assisted living. Medication Compliance: Yes Mental Status Exam Mental Status Exam Narrative: Appearance: sitting in chair in milieu with walker next to him. Grooming/hygiene fair. good eye contact Attitude: Cooperative. Speech: Fluent and wnl in regard to volume, tone, prosody Motor activity: Calm. Occasional chomping (seems to be related to being edentulous). Otherwise no abnormal movements observed Mood: okay Affect: appropriate, generally bright Thought process: goal directed and without evidence of formal thought disorder Thought content: Denies SI. Did not endorse any somatic concerns today Perception: does not appear to respond to internal stimuli Cognition grossly intact Insight: fair Judgment: intact Diagnostics Vital Signs (24Hr): Vital Signs - 24 hr 07/06/25 20:00 07/06/25 20:01 07/07/25 09:23 Temperature 97.3 F 97.2 F Pulse Rate 83 83 92 Respiratory Rate 18 20 Blood Pressure 105/72 105/72 107/69 Pulse Oximetry 97 98 Oxygen Delivery Method Room Air Room Air BMI result Body Mass Index 27.8 Labs 06/27/25 11:19 06/27/25 11:19 Labs: Laboratory Results - last 48 hr 07/07/25 10:15 Absolute Neuts (auto) 4.6 Imaging Radiology Impressions: ITS Impressions Chest X-Ray 06/14/25 16:43 IMPRESSION: No evidence for acute disease in the chest. Electronically signed by: Concepcion Delarosa MD 06/14/2025 04:[address] 06/27/25 10:09 IMPRESSION: No acute fracture, bony calvarium. No acute intracranial hemorrhage. Atherosclerosis disease, intracranial. Electronically signed by: Pino Ponce MD 06/27/2025 10:44 AM EST RP Hip X-Ray 07/06/25 17:03 IMPRESSION: Unremarkable right hip exam. Small radiopaque BB-like metallic density overlying the right hip joint. Electronically signed by: Evan Poon MD 07/07/2025 07:14 AM EST RP Medications Medications Current Medications Acetaminophen (Acetaminophen 325 Mg Tablet) 975 mg PO BID PRN PRN Reason: Pain, Moderate(Pain Scale 4-6) Last Admin: 07/06/25 16:12 Dose: 975 mg Al Hydroxide/Mg Hydroxide (Magnesium Hydrox/Alum Hydrox 30 Ml Oral.Susp) 30 ml PO Q6H PRN PRN Reason: Heartburn/Nausea Last Admin: 06/30/25 12:21 Dose: 30 ml Aspirin (Aspirin Enteric Coated 81 Mg Tablet.Dr) 81 mg PO DAILY [facility] Last Admin: 07/07/25 08:50 Dose: 81 mg Atorvastatin Calcium (Atorvastatin Calcium 40 Mg Tablet) 40 mg PO BEDTIME [facility] Last Admin: 07/06/25 20:02 Dose: 40 mg Benztropine Mesylate (Benztropine Mesylate 1 Mg Tablet) 1 mg PO BID [facility] Last Admin: 07/07/25 08:48 Dose: 1 mg Budesonide (Budesonide 180 Mcg Aer.Pow.Ba) 2 puff INHALE RDAILY [facility] Last Admin: 07/07/25 08:57 Dose: Not Given Calcium Carbonate/Cholecalciferol (Calcium + Vitamin D 250 Mg Tablet) 500 mg PO BID [facility] Last Admin: 07/07/25 08:48 Dose: 500 mg Clozapine (Clozapine 100 Mg Tablet) 300 mg PO BEDTIME [facility] Last Admin: 07/06/25 20:01 Dose: 300 mg Diphenhydramine HCl (Diphenhydramine Hcl 25 Mg Capsule) 50 mg PO BEDTIME PRN PRN Reason: Insomnia Docusate Sodium (Docusate Sodium 100 Mg Capsule) 100 mg PO BID [facility] Last Admin: 07/07/25 08:47 Dose: 100 mg Famotidine (Famotidine 20 Mg Tablet) 20 mg PO BID [facility] Last Admin: 07/07/25 08:47 Dose: 20 mg Folic Acid (Folic Acid 1 Mg Tablet) 1 mg PO DAILY [facility] Last Admin: 07/07/25 08:48 Dose: 1 mg Hydroxyzine HCl (Hydroxyzine Hcl 50 Mg Tablet) 50 mg PO Q8H PRN PRN Reason: Anxiety Last Admin: 07/06/25 11:53 Dose: 50 mg Ibuprofen (Ibuprofen 800 Mg Tablet) 800 mg PO Q8H PRN PRN Reason: moderate pain Last Admin: 07/05/25 17:19 Dose: 800 mg Lactase (Lactase Tablet) 3 tab PO TIDWM [facility] Last Admin: 07/07/25 08:49 Dose: 3 tab Magnesium Hydroxide (Milk Of Magnesia 30 Ml Oral.Susp) 30 ml PO DAILY PRN PRN Reason: Constipation Magnesium Oxide (Magnesium Oxide 400 Mg Tablet) 400 mg PO BIDPC [facility] Last Admin: 07/07/25 08:50 Dose: 400 mg Metformin HCl (Metformin Hcl 500 Mg Tablet) 500 mg PO DAILY [facility] Last Admin: 07/07/25 08:50 Dose: 500 mg Methocarbamol (Methocarbamol 500 Mg Tablet) 500 mg PO TID PRN PRN Reason: severe pain Last Admin: 07/06/25 21:14 Dose: 500 mg Metoprolol Tartrate (Metoprolol Tartrate 50 Mg Tablet) 50 mg PO BID [facility]; Protocol Last Admin: 07/07/25 09:26 Dose: 50 mg Multivitamins/Vitamin C (Multivitamin Tablet) 1 tab PO DAILY [facility] Last Admin: 07/07/25 08:51 Dose: 1 tab Naloxone HCl (Naloxone Hcl 0.4 Mg/Ml Vial) 0.04 mg IVPUSH Q5M PRN PRN Reason: Excessive sedation or RR < 8 Nicotine Polacrilex (Nicotine Polacrilex 2 Mg Gum) 2 mg BUCCAL Q2H PRN PRN Reason: Nicotine Cravings Nitroglycerin (Nitroglycerin 0.4 Mg Tab.Subl) 0.4 mg SUBLINGUAL Q5MX3 PRN PRN Reason: chest pain Polyethylene Glycol (Polyethylene Glycol 3350 17 Gm Powd.Pack) 17 gm PO DAILY PRN PRN Reason: Constipation Last Admin: 06/22/25 14:56 Dose: 17 gm Sertraline HCl (Sertraline Hcl 100 Mg Tablet) 100 mg PO DAILY [facility] Last Admin: 07/07/25 08:50 Dose: 100 mg Simethicone (Simethicone 80 Mg Tab.Chew) 80 mg PO QIDWMHS [facility] Last Admin: 07/07/25 08:49 Dose: 80 mg Sucralfate (Sucralfate 1 Gm Tablet) 1 gm PO QIDACHS [facility] Last Admin: 07/07/25 08:47 Dose: 1 gm Tamsulosin HCl (Tamsulosin Hcl 0.4 Mg Capsule) 0.8 mg PO BEDTIME [facility] Last Admin: 07/06/25 20:01 Dose: 0.8 mg Trazodone HCl (Trazodone Hcl 50 Mg Tablet) 150 mg PO BEDTIME [facility] Last Admin: 07/06/25 20:00 Dose: 150 mg Trazodone HCl (Trazodone Hcl 50 Mg Tablet) 50 mg PO BEDTIME PRN PRN Reason: Insomnia Venlafaxine HCl (Venlafaxine Hcl Er 37.5 Mg Cap.Er.24h) 37.5 mg PO DAILY [facility] Last Admin: 07/07/25 08:51 Dose: 37.5 mg Vitamin D (Cholecalciferol (Vitamin D3) 25 Mcg Tablet) 50 mcg PO DAILY [facility] Last Admin: 07/07/25 08:51 Dose: 50 mcg Allergies Allergies Allergy/AdvReac Type Severity Reaction Status Date / Time bupropion Allergy Rash Verified 06/09/25 19:07 haloperidol (From Haldol) Allergy Rash Verified 06/09/25 19:07 lactose Allergy Gastrointestinal Verified 06/09/25 19:07 Upset peanut Allergy Anaphylaxis Verified 06/09/25 19:07 ziprasidone Allergy Rash Verified 06/09/25 19:07 Assessment & Plan Assessment & Plan (1) Schizoaffective disorder, bipolar type: Status: Acute Code(s): F25.0 - Schizoaffective disorder, bipolar type (2) PTSD (post-traumatic stress disorder): Status: Acute Code(s): F43.10 - Post-traumatic stress disorder, unspecified (3) Right hip pain: Status: Acute Code(s): M25.551 - Pain in right hip (4) Right knee pain: Status: Acute Code(s): M25.561 - Pain in right knee Plan Mr. Brink is a 59 y/o DWM with documented h/o schizophrenia, bipolar d/o, depression, PTSD, KASSIE, sleep apnea, HTN, CAD, hyponatremia, peripheral neuropathy, 3 UT's s/p CABG, unsteady gait, and type II DM who was brought to the [facility] ED due to AH and SI. He was transferred [place] [facility] [place] [place] tx of severe depression, SI and psychotic sx. Plan: Admitted to [facility] for safety and stabilization Legal status- CV Admission medical consult ordered 5 minute safety checks due to fall risk. Uses a walker Meds- Continue current medications from usp list for now: Clozaril 50 mg qhs Clozaril 300 mg qhs for now (grp home list says 'bid at hs' and external med rec shows 300 mg qhs) Effexor XR 75 mg qam *per external med rec, it looks like pt is cross titrating from venlafaxine to sertraline, was previously on 225 mg qd. Will continue cross titration after clarifying when the doses were last adjusted diphenhydramine 50 mg qhs prn for insomna hydroxyzine 50 mg q 8 hrs prn for anxiety sertraline 100 mg qd trazodone 100 mg qhs acetaminophen 975 mg bid ASA 81 mg qam budesonide-formoterol 2 inhalations qd Calcium-Vit D 500mg-5 mcg tabs, 2 tabs po bid docusate 100 mg bid folic acid 1 mg qam ibuprofen 800 mg q 8 hrs prn for pain lactase 9000 unit tablet tid magnesium oxide 400 mg bid metformin 500 mg qam methocarbamol 500 mg q 8 hrs for muscle pain metoprolol 50 mg bid MVI qd nitroglycerin 0.4 mg SL q 5 min prn for chest pain u pt 3 doses simethicone 80 mg 4x/day after meals and at hs sucralfate 1 g 4x/day before meals tamsulosin 0.8 mg qhs Vit B complex qam Vit D3 50 mcg qam Will consider ECT 06/11: Trial GBP 100 mg TID for anxiety and pain. 06/12: DC Gabapentin. Monitor urinary retention/incontinence. He is on Tamsulosin. Continue current management and treatment plan. 06/13: Will refer to ECT due to inadequate response to multiple psychotropic medication trials including: current regimen- clozapine 350 mg qd, sertraline 100 mg qd, venlafaxine (tapering off, was up to 225 mg qd), trazodone 100 mg qhs Prior med trials: Prozac, Cymbalta, Lamictal, Strattera, Zyprexa, Adderall ER, Invega Sustenna, VPA -Will request hospitalist consult for risk stratification for ECT -Taper venlafaxine to 37.5 mg starting tomorrow 06/14: ECT ordered for tomorrow am. NPO except for meds with sips of water after midnight. Medically cleared for ECT today by Alejandra Dangelo NP ECT risk stratification. Patient without previous problems with anesthesia, has previously undergone ECT RCRI 0 points, no further cardiac workup or treatment indicated at this time. Patient denies any past problems with anesthesia. EKG pending, no evidence of ischemic changes Based on stated PMH, HPI, and physical exam, there are no There are no obvious contraindications to the planned procedure. Patient with moderate risk due to advancing age and history of coronary artery disease. 06/15: Completed ECT #1 today (RUL) and tolerated it well. Will continue current tx plan for now, with ECT #2 scheduled for 06/17: Continue current tx plan. ECT #2 scheduled for tomorrow. NPO and ECT orders entered. 06/17: Did well w/ ECT #2. Ordered NPO for ECT #3 on Tuesday 06/19: Laying in bed most of day. Patient continues to report feeling depressed; he reports not sleeping well last night but is not clear for reason. denies SI/HI/VH. +AH telling me I'm going to . Encouraged to leave room. continue tx plan. 06/20: ECT #3 completed today. Endorses ongoing depressed mood without signif improvement. Continue current tx plan. ECT #4 scheduled for 06/22. ECT & NPO orders are entered for 06/22 06/21: Pt is agreeable w/ plan to d/c venlafaxine (seems to have started x-titration to sertraline during one of his inpt admissions). Will titrate standing dose of trazodone to 150 mg qhs. ECT #4 scheduled for tomorrow 06/22: Completed ECT #4. Now off venlafaxine. C/O constipation x 3 days. TW asked pt's nurse to give him MiraLax. Pt denies significant improvement in depression thus far. I explained that it's still early in the ECT series to expect a significant response. Medical necessity for continued inpatient psychiatric treatment: Continuation of ECT series for depression. Unable to engage in outpatient ECT since there are no ECT providing facilities near his us[facility] in [place]. Treatment failure with multiple psychotropic trials and previous positive reponse to ECT 06/23: Pt has noticed subtle improvement in his mood since starting ECT. Endorses some confusion and dissociative sx which could be related to ECT and/or discontinuing the venlafaxine. Will re-start venlafaxine 37.5 mg tomorrow am for more gradual taper to reduce discontinuation sx. Will d/c clozapine 25 mg am dose w/ plan to cross titrate to Seroquel, which was reportedly effective in the past for tx of depression and AH, also since pt has multiple SE from the clozapine without any noticeable benefit. Pt is agreeable w/ this tx plan 06/24: Mood gradually improving, brighter affect today. Will continue current med regimen for now and continue cross-titration over the weekend. ECT #5 done today. #6 scheduled for Fri, 06/27 06/25: Will start lorazepam 0.5 mg bid for tx of potential venlafaxine discontinuation syndrome +/- EPS. Advised pt to stand up slowly to reduce risk of falls. 06/26: Continue current tx plan. ECT #6 scheduled for tomorrow. NPO orders in 06/27: ECT cx'd after pt had an unwitnessed fall and reported hitting the back of his head. CT head showed no acute changes and EKG was unremarkable. Pt reported blacking out prior to falling, which has reportedly happened at his usp also. He doesn't think any of the recent med changes contributed to the fall. As a precaution, will hold the Seroquel tonight since it was recently added. TW advised pt to sit up on his bed for a few minutes before standing in the morning and then stand up slowly and pt expressed an understanding and agreed. 06/28: Medically cleared by hospitalist to resume ECT. Input much appreciated. NPO orders in, ECT #6 scheduled for tomorrow. Pt c/o R knee pain after the fall Orthostatics ordered q 8 hrs x 24 hrs by hospitalist R knee xray on 11/4: was negative for any acute changes. signif for mild OA/osteopenia 06/29: Completed ECT #6 today. Mood is gradually improving. Will continue current med regimen. ECT #7 scheduled for Friday, 07/01 06/30: Mood is improving. ECT #7 scheduled for tomorrow. NPO order in. Continue current med regimen 07/01: Tolerated ECT #7 well. Orthostatics done earlier this week were neg. Continue current tx plan. ECT#8 scheduled for Friday, 07/04. NPO orders are in 07/02/25: Patient is in bed after lunch, pleasant and cooperative upon approach. Denies SI/SIB/HI/AVH but stating that he hears a little bit voices telling me I am dying . Reports anxiety and depression 03/03. Reports a little bit constipated but having last bowel movement was yesterday. Encourage fluid intake. Patient reports some shakiness twisting hand as side effect of medications. Reports ECTs helpful. 07/03/25: Patient spent most of the morning in bed, calm, pleasant and cooperative. Continue to report hand shaking and muscle twisting. Denies voices , denies SI/SIB/HI/VH. Report anxiety and depression a 03/03. Patient to have ECT tomorrow. Patient compliant with meds and slept for 8 hours per nursing. start Cogentin 0.5mg BID for possible EPS. 07/04/25: Twitching improved overall w/ addition of Cogentin per pt report. Continue current tx plan. ECT #9 scheduled for 07/06. 07/05: Cancelled ECT for tomorrow 2/2 reports of confusion. Will do MoCA tomorrow. Hold off on increasing Cogentin due to risk of worsening cognitive SE Informed Consent: understands 07/06: c/o R hip pain that he attributed to fall last wk. R hip xray done, seems to be neg but awaiting radiology report. LE venous duplex neg for DVT. MoCA done today- . Will increase cogentin to 1 mg bid per pt request, monitor for cognitive SE. Will schedule next ECT for Saturday 07/07: Switched pt's resucitation status to DNR/DNI per his request. He had paperwork already on file at the [facility], which was faxed here. Will need to lift the DNR/DNI prior to ECT. Continue current tx plan- next ECT schedued for tomorrow, 07/08 Reason for continued inpatient stay Substantial Risk for: med/psych decompensation Time Spent With Patient Time: Total time managing care of this patient today ____ minutes.
[2025-07-07 10:59] LABS: Creatinine Clr Calc Pharmacy 73.0; Estimated Glomerular Filt Rate > 60
--- NOTE | 2025-07-07 13:06 | PM.EVENT ---
Event Note Date of Service: 07/07/25 Event Note: Reviewed imaging, right hip x-ray negative for any fracture, Doppler ultrasound negative for DVT. Time Spent With Patient Time: Total time managing care of this patient today ____ minutes.
[2025-07-07 20:00] VITALS: BP 123/74; PULSE 81; RESP 16; TEMP 36.6; O2SAT 99
[2025-07-07 21:16] VITALS: BP 123/74; PULSE 81
[2025-07-08] VITALS (11 sets, daily range): BP systolic 110–161; BP diastolic 58–85; PULSE 77–95; RESP 13–16; TEMP 36.2–36.3; O2SAT 96–100; BMI 27.5
--- NOTE | 2025-07-08 13:12 | MHC.SHP ---
Pre-Procedural Eval Section A - 24 Hr Update-Section A only Date of Service: 07/08/25 The patient is an INPATIENT: Yes Changes since office visit: No Cold of Flu in the past 2 weeks, No New Medical Problems, No Changes in Medication and No Patient answered all questions The patient has been examined within 24 hours of the surgical procedure. The History & Physical has been completed within 30 days and I have reviewed it.: Yes Section B - Complete if H&P > 30 days Chief Complaint: SI Allergies: Allergies Allergy/AdvReac Type Severity Reaction Status Date / Time bupropion Allergy Rash Verified 06/09/25 19:07 haloperidol (From Haldol) Allergy Rash Verified 06/09/25 19:07 lactose Allergy Gastrointestinal Verified 06/09/25 19:07 Upset peanut Allergy Anaphylaxis Verified 06/09/25 19:07 ziprasidone Allergy Rash Verified 06/09/25 19:07 Plan Diagnosis/Plan: Unchanged I have reviewed the history and physical and performed a pertinent physical examination on my patient. No changes have occurred unless specified. Time Spent With Patient Time: Total time managing care of this patient today ____ minutes.
--- NOTE | 2025-07-08 14:21 | HO.ANESPROP2 ---
HPI - Anesthesia Eval Consult details Narrative: 59 yo M presenting for ECT PMFSH Active Problems Active Problems: All Active Problems Right hip pain (Acute) Right knee pain (Acute) PTSD (post-traumatic stress disorder) (Acute) Schizoaffective disorder, bipolar type (Acute) Coronary artery disease (Acute) Past Medical History Functional capacity: independent ambulation Family History Family history of problems with anesthesia: No Surgical History History of Problems with Anesthesia: No Social History Social History Household Members: Other Household Members Other:: jail residents Housing: Other Housing Other:: jail Do you presently have visiting nurse or other home services: Yes ([employer]) Patient Tobacco Use Status: Former Tobacco user Tobacco use type: Cigarette Cigarettes Per Day: 3 Years Smoked: 43 Smoked in Last 30 Days: Yes e-Cigarette/Vaping Use: Never Used Patient Interested in Nicotine Replacement: No Patient Given Instructions on How to Stop Smoking: Yes Date Education Initiated: 06/09/25 Second Hand Smoke Exposure: No Currently Displaying Signs/Symptoms of Drug Intoxication Withdrawal: No Have you been hit, kicked, punched, or otherwise hurt by someone within the past year? If so, by whom?: No Do you feel safe in your current relationship?: No Current Relationship Is there a partner from a previous relationship who is making you feel unsafe now?: No Are you made to feel afraid or neglected: No Are you DNR?: Yes Advance Directives: No Advance Directives Information Provided: No Advance Directives on File: No Do you have thoughts of harming others: None Do you have a plan to hurt others: No Plan Recently lost weight without trying: No How much weight loss: Not applicable Eating poorly because of decreased appetite: No Nutrition screen score: 0 Nutrition Risks: No Nutritional Risk service: No Sexual orientation: Straight/Heterosexual Meds Allergies Allergy/AdvReac Type Severity Reaction Status Date / Time bupropion Allergy Rash Verified 06/09/25 19:07 haloperidol (From Haldol) Allergy Rash Verified 06/09/25 19:07 lactose Allergy Gastrointestinal Verified 06/09/25 19:07 Upset peanut Allergy Anaphylaxis Verified 06/09/25 19:07 ziprasidone Allergy Rash Verified 06/09/25 19:07 Active Medications: Current Medications Acetaminophen (Acetaminophen 325 Mg Tablet) 975 mg PO BID PRN PRN Reason: Pain, Moderate(Pain Scale 4-6) Last Admin: 07/07/25 16:45 Dose: 975 mg Al Hydroxide/Mg Hydroxide (Magnesium Hydrox/Alum Hydrox 30 Ml Oral.Susp) 30 ml PO Q6H PRN PRN Reason: Heartburn/Nausea Last Admin: 06/30/25 12:21 Dose: 30 ml Aspirin (Aspirin Enteric Coated 81 Mg Tablet.Dr) 81 mg PO DAILY [facility] Last Admin: 07/08/25 13:23 Dose: Not Given Atorvastatin Calcium (Atorvastatin Calcium 40 Mg Tablet) 40 mg PO BEDTIME [facility] Last Admin: 07/07/25 21:15 Dose: 40 mg Benztropine Mesylate (Benztropine Mesylate 1 Mg Tablet) 1 mg PO BID [facility] Last Admin: 07/08/25 13:23 Dose: Not Given Budesonide (Budesonide 180 Mcg Aer.Pow.Ba) 2 puff INHALE RDAILY [facility] Last Admin: 07/08/25 13:22 Dose: Not Given Calcium Carbonate/Cholecalciferol (Calcium + Vitamin D 250 Mg Tablet) 500 mg PO BID [facility] Last Admin: 07/08/25 13:23 Dose: Not Given Clozapine (Clozapine 100 Mg Tablet) 300 mg PO BEDTIME [facility] Last Admin: 07/07/25 21:15 Dose: 300 mg Diphenhydramine HCl (Diphenhydramine Hcl 25 Mg Capsule) 50 mg PO BEDTIME PRN PRN Reason: Insomnia Docusate Sodium (Docusate Sodium 100 Mg Capsule) 100 mg PO BID [facility] Last Admin: 07/08/25 13:23 Dose: Not Given Famotidine (Famotidine 20 Mg Tablet) 20 mg PO BID [facility] Last Admin: 07/08/25 13:24 Dose: Not Given Folic Acid (Folic Acid 1 Mg Tablet) 1 mg PO DAILY [facility] Last Admin: 07/08/25 13:24 Dose: Not Given Hydroxyzine HCl (Hydroxyzine Hcl 50 Mg Tablet) 50 mg PO Q8H PRN PRN Reason: Anxiety Last Admin: 07/07/25 14:19 Dose: 50 mg Ibuprofen (Ibuprofen 800 Mg Tablet) 800 mg PO Q8H PRN PRN Reason: moderate pain Last Admin: 07/07/25 11:46 Dose: 800 mg Lactase (Lactase Tablet) 3 tab PO TIDWM [facility] Last Admin: 07/08/25 13:22 Dose: Not Given Magnesium Hydroxide (Milk Of Magnesia 30 Ml Oral.Susp) 30 ml PO DAILY PRN PRN Reason: Constipation Magnesium Oxide ([facility]esium Oxide 400 Mg Tablet) [facility] Last Admin: 07/08/25 13:23 Dose: Not Given Metformin HCl (Metformin Hcl 500 Mg Tablet) 500 mg PO DAILY [facility] Last Admin: 07/08/25 13:25 Dose: Not Given Methocarbamol (Methocarbamol 500 Mg Tablet) 500 mg PO TID PRN PRN Reason: severe pain Last Admin: 07/06/25 21:14 Dose: 500 mg Metoprolol Tartrate (Metoprolol Tartrate 50 Mg Tablet) 50 mg PO BID [facility]; Protocol Last Admin: 07/08/25 13:25 Dose: Not Given Multivitamins/Vitamin C (Multivitamin Tablet) 1 tab PO DAILY [facility] Last Admin: 07/08/25 13:26 Dose: Not Given Naloxone HCl (Naloxone Hcl 0.4 Mg/Ml Vial) 0.04 mg IVPUSH Q5M PRN PRN Reason: Excessive sedation or RR < 8 Nicotine Polacrilex (Nicotine Polacrilex 2 Mg Gum) 2 mg BUCCAL Q2H PRN PRN Reason: Nicotine Cravings Nitroglycerin (Nitroglycerin 0.4 Mg Tab.Subl) 0.4 mg SUBLINGUAL Q5MX3 PRN PRN Reason: chest pain Polyethylene Glycol (Polyethylene Glycol 3350 17 Gm Powd.Pack) 17 gm PO DAILY PRN PRN Reason: Constipation Last Admin: 06/22/25 14:56 Dose: 17 gm Sertraline HCl (Sertraline Hcl 100 Mg Tablet) 100 mg PO DAILY [facility] Last Admin: 07/08/25 13:25 Dose: Not Given Simethicone (Simethicone 80 Mg Tab.Chew) 80 mg PO QIDWMHS [facility] Last Admin: 07/08/25 13:22 Dose: Not Given Sucralfate (Sucralfate 1 Gm Tablet) 1 gm PO QIDACHS [facility] Last Admin: 07/08/25 13:21 Dose: Not Given Tamsulosin HCl (Tamsulosin Hcl 0.4 Mg Capsule) 0.8 mg PO BEDTIME [facility] Last Admin: 07/07/25 21:15 Dose: 0.8 mg Trazodone HCl (Trazodone Hcl 50 Mg Tablet) 150 mg PO BEDTIME [facility] Last Admin: 07/07/25 21:15 Dose: 150 mg Trazodone HCl (Trazodone Hcl 50 Mg Tablet) 50 mg PO BEDTIME PRN PRN Reason: Insomnia Venlafaxine HCl (Venlafaxine Hcl Er 37.5 Mg Cap.Er.24h) 37.5 mg PO DAILY [facility] Last Admin: 07/08/25 13:25 Dose: Not Given Vitamin D (Cholecalciferol (Vitamin D3) 25 Mcg Tablet) 50 mcg PO DAILY [facility] Last Admin: 07/08/25 13:23 Dose: Not Given Home Medications ?Medication ?Instructions ?Recorded ?Confirmed ?Last Taken ?Type aspirin 81 mg tablet,delayed 81 mg PO DAILY 06/09/25 06/09/25 06/08/25 History release atorvastatin 40 mg tablet 40 mg PO BEDTIME cholesterol 06/09/25 06/09/25 06/08/25 History calcium 500 mg (as 2 tab PO BID 06/09/25 06/09/25 Unknown History carbonate)-vitamin D3 5 mcg (200 unit) tablet (Oyster Shell Calcium-Vitamin D3) cholecalciferol (vitamin D3) 50 50 mcg PO DAILY 06/09/25 06/09/25 06/08/25 History mcg (2,000 unit) capsule clozapine 100 mg tablet 300 mg PO BEDTIME 06/09/25 06/09/25 06/08/25 History clozapine 50 mg tablet 50 mg PO BEDTIME 06/09/25 06/09/25 06/08/25 History dextroamphetamine-amphetamine ER 2 cap PO DAILY 06/09/25 06/09/25 06/08/25 History 10 mg 24hr capsule,extend release docusate sodium 100 mg capsule 100 mg PO BID 06/09/25 06/09/25 06/08/25 History duloxetine 60 mg capsule,delayed 60 mg PO DAILY 06/09/25 06/09/25 06/08/25 History release famotidine 20 mg tablet 20 mg PO BID acid reflux 06/09/25 06/09/25 Unknown History guanfacine 1 mg tablet,extended 1 mg PO DAILY 06/09/25 06/09/25 Unknown History release 24 hr ibuprofen 800 mg tablet 800 mg PO Q8H PRN pain 06/09/25 06/09/25 Unknown History lorazepam 1 mg tablet 1 mg PO BEDTIME PRN insomnia 06/09/25 06/09/25 06/08/25 History metoprolol succinate 25 mg 75 mg PO DAILY 06/09/25 06/09/25 Unknown History tablet,extended release 24 hr multivitamin with folic acid 400 1 tab PO DAILY 06/09/25 06/09/25 06/08/25 History mcg tablet (Daily-Avtar (with folic acid)) sertraline 100 mg tablet 100 mg PO DAILY 06/09/25 06/09/25 06/08/25 History sucralfate 1 gram tablet 1 g PO QID 06/09/25 06/09/25 Unknown History tamsulosin 0.4 mg capsule 0.4 mg PO BEDTIME 06/09/25 06/09/25 06/03/25 History trazodone 100 mg tablet 100 mg PO BEDTIME 06/09/25 06/09/25 06/08/25 History venlafaxine 75 mg capsule,extended 75 mg PO QAM 06/09/25 06/09/25 06/08/25 History release 24 hr vitamin B complex 1 cap PO DAILY 06/09/25 06/09/25 06/08/25 History Exam Exam Date and Time: 07/08/25 1420 Height,Weight and Vital Signs: Height 6 ft Weight 92.079 kg Last Vital Signs Temp 97.3 F 07/08/25 13:25 Pulse 83 07/08/25 13:25 Resp 13 07/08/25 13:25 BP 127/80 07/08/25 13:25 Pulse Ox 98 07/08/25 13:25 O2 Del Method Room Air 07/08/25 13:25 O2 Flow Rate 0 07/01/25 08:50 Pertinent Lab Results Pertinent Lab Results: Laboratory Tests 06/10/25 06/14/25 06/14/25 08:07 14:27 17:34 WBC 7.9 RBC 4.55 L Hgb 13.0 L Hct 38.2 L MCV 84.0 MCH 28.6 MCHC 34.0 RDW 13.4 Plt Count 284 MPV 9.2 L Immature Gran % (Auto) 0.3 Neut % (Auto) 68.0 Lymph % (Auto) 21.6 [place] % (Auto) 7.3 Eos % (Auto) 1.9 Baso % (Auto) 0.9 Lymph # (Auto) 1.7 [place] # (Auto) 0.6 Eos # (Auto) 0.2 Baso # (Auto) 0.1 Abs Immat Gran (auto) 0.02 Absolute Neuts (auto) 5.7 5.4 Absolute Nucleated RBC 0.000 Nucleated RBC % (auto) 0.0 Sodium 141 139 Potassium 3.9 4.3 Chloride 108 103 Carbon Dioxide 23 26 Anion Gap 14 14 BUN 8 L 19 H Creatinine 0.94 1.19 Estim Creat Clear Calc 91.7 72.4 Estimated GFR > 60 > 60 Random Glucose 110 135 H Estimat Average Glucose 114 Hemoglobin A1c % 5.6 Calcium 9.5 9.8 Magnesium Total Bilirubin 0.3 0.3 AST 20 22 ALT 27 42 H Alkaline Phosphatase 95 93 Troponin I High Sens < 2.7 Total Protein 7.5 7.6 Albumin 4.7 4.8 Triglycerides 298 H Cholesterol 159 LDL Cholesterol, Calc 73 HDL Cholesterol 27 L TSH 0.86 Free T4 1.01 Urine Color Urine Appearance Urine pH Ur Specific [place] Urine Protein Urine Glucose (UA) Urine Ketones Urine Blood Urine Nitrite Ur Leukocyte Esterase 06/17/25 06/17/25 06/21/25 17:35 17:36 10:40 WBC RBC Hgb Hct MCV MCH MCHC RDW Plt Count MPV Immature Gran % (Auto) Neut % (Auto) Lymph % (Auto) [place] % (Auto) Eos % (Auto) Baso % (Auto) Lymph # (Auto) [place] # (Auto) Eos # (Auto) Baso # (Auto) Abs Immat Gran (auto) Absolute Neuts (auto) 5.5 Absolute Nucleated RBC Nucleated RBC % (auto) Sodium Potassium Chloride Carbon Dioxide Anion Gap BUN Creatinine 1.13 Estim Creat Clear Calc 76.3 Estimated GFR > 60 Random Glucose Estimat Average Glucose Hemoglobin A1c % Calcium Magnesium Total Bilirubin AST ALT Alkaline Phosphatase Troponin I High Sens Total Protein Albumin Triglycerides Cholesterol LDL Cholesterol, Calc HDL Cholesterol TSH Free T4 Urine Color Yellow Urine Appearance Clear Urine pH 7.0 Ur Specific [place] 1.015 Urine Protein Negative Urine Glucose (UA) Negative Urine Ketones Negative Urine Blood Negative Urine Nitrite Negative Ur Leukocyte Esterase Negative 06/24/25 06/27/25 06/27/25 13:01 11:19 11:19 WBC 6.6 RBC 4.80 Hgb 13.7 L Hct 40.9 L MCV 85.2 MCH 28.5 MCHC 33.5 RDW 13.4 Plt Count 248 MPV 10.1 Immature Gran % (Auto) 0.5 H Neut % (Auto) 64.6 Lymph % (Auto) 23.1 [place] % (Auto) 7.3 Eos % (Auto) 3.4 Baso % (Auto) 1.1 Lymph # (Auto) 1.5 [place] # (Auto) 0.5 Eos # (Auto) 0.2 Baso # (Auto) 0.1 Abs Immat Gran (auto) 0.03 Absolute Neuts (auto) 5.6 4.2 Absolute Nucleated RBC 0.000 Nucleated RBC % (auto) 0.0 Sodium 142 Potassium 4.1 Chloride 105 Carbon Dioxide 28 Anion Gap 13 BUN 15 Creatinine 1.12 1.00 Estim Creat Clear Calc 76.9 86.2 Estimated GFR > 60 > 60 Random Glucose 122 H Estimat Average Glucose Hemoglobin A1c % Calcium 9.6 Magnesium 2.3 Total Bilirubin AST ALT Alkaline Phosphatase Troponin I High Sens Cancelled < 2.7 Total Protein Albumin Triglycerides Cholesterol LDL Cholesterol, Calc HDL Cholesterol TSH Free T4 Urine Color Urine Appearance Urine pH Ur Specific [place] Urine Protein Urine Glucose (UA) Urine Ketones Urine Blood Urine Nitrite Ur Leukocyte Esterase 07/07/25 10:15 WBC RBC Hgb Hct MCV MCH MCHC RDW Plt Count MPV Immature Gran % (Auto) Neut % (Auto) Lymph % (Auto) [place] % (Auto) Eos % (Auto) Baso % (Auto) Lymph # (Auto) [place] # (Auto) Eos # (Auto) Baso # (Auto) Abs Immat Gran (auto) Absolute Neuts (auto) 4.6 Absolute Nucleated RBC Nucleated RBC % (auto) Sodium Potassium Chloride Carbon Dioxide Anion Gap BUN Creatinine 1.18 Estim Creat Clear Calc 73.0 Estimated GFR > 60 Random Glucose Estimat Average Glucose Hemoglobin A1c % Calcium Magnesium Total Bilirubin AST ALT Alkaline Phosphatase Troponin I High Sens Total Protein Albumin Triglycerides Cholesterol LDL Cholesterol, Calc HDL Cholesterol TSH Free T4 Urine Color Urine Appearance Urine pH Ur Specific [place] Urine Protein Urine Glucose (UA) Urine Ketones Urine Blood Urine Nitrite Ur Leukocyte Esterase Airway Mallampati Class: I TM Dist: >3cm Neck ROM: Full Loose/Missing/Broken Teeth: Yes (edentulous) Heart: S1S2 Lungs: CTAB Assessment and Plan Assessment Anesthesia Assessment: Anesthesia Plan Discussed and Chart Reviewed Final Anesthetic Review Family History of Problems with Anesthesia: No History of Problems with Anesthesia: No NPO: Yes ASA Class: III Final Preanesthetic Review: No Changes in Pt Med Stat, Meds/Allgs Chart Reviewed, Consent Obtained/Reviewed and Anes Risks/Benef Reviewed Patient Risk: Intermediate Procedure Risk: Intermediate Anesthetic Plan Anesthetic Plan: GA and Agree w/ Assess. and Plan Disposition: Standard PACU
--- NOTE | 2025-07-08 15:15 | HO.ECTPROC ---
ECT Procedure Note Diagnosis/Treatment Date of Service: 07/08/25 Diagnosis: Schizoaffective Disorder Previous ECT Date: 07/04/25 Current Treatment Number: 9 Treatment: Series Interval Clinical Notes: Depression has improved overall. Affect notably brighter. Denies any issues with last tx. Will return next 07/13 for last ECT here before d/c to halfway in [place]. Pt won't be able to do mECT here due to distance from his halfway Time: Total time managing care of this patient today ____ minutes. ECT Settings Device: THYMATRON DGx Electrode Placement: Right Unilateral Program/Pulse Width: 0.25 Energy Percent: 100 (titrated today to optimize tx of residual depressive sx) Seizure Duration By EEG (in seconds): 38 By Motor Observation (in seconds): 23 Medications Administration General Anesthetic: Etomidate (18) Muscle Relaxant: Succinylcholine (100) Ancillary Medications Anti-emetics: Zofran - Post ECT (4 mg) Cardiovascular Medications: Labetolol (5) Miscillaneous Medications: Propofol (30) Airway Management Airway Management: Bag Mask Ventilation Treatment Recommendations Pt Tolerated Procedure w/o Issue: Yes
[2025-07-08] MEDS: Venlafaxine HCl ER 37.5 MG CAP.ER.24H PO (16:39)
[2025-07-08] MEDS: Aspirin Enteric Coated 81 MG TABLET.DR PO (16:42)
--- NOTE | 2025-07-08 18:00 | HO.PSYCHPN ---
Subjective Subjective Date of Service: 07/08/25 Reason For Visit: SI Subjective Notes: Conditional Voluntary Interim History: Chart reviewed, case discussed in tx team Pt reported having hallucinations earlier today, which he described as visions of stressful experiences from the past. T/W explored whether these are actually flashbacks, which pt feels is the case. Per ECT nurse, pt discussed traumatic experiences from the past w/ her today, including his divorce, health issues, losing his job and his divorce ~10 yrs ago. T/W did pt's ECT today, which went well. Pt denies SI. Slept thru the night. Good appetite The intermittent arm spasms have decreased w/ the Cogentin Medication Compliance: Yes Mental Status Exam Mental Status Exam Narrative: Appearance: sitting in chair in milieu. grooming/hygiene fair. good eye contact Attitude: Cooperative. Speech: Fluent and wnl in regard to volume, tone, prosody Motor activity: Calm. Occasional chomping (seems to be related to being edentulous). Otherwise no abnormal movements observed Mood: okay Affect: appropriate, brightens up appropriately Thought process: goal directed and without evidence of formal thought disorder Thought content: Denies SI. Reports foot pain (chronic issue) Perception: does not appear to respond to internal stimuli Cognition grossly intact Insight: fair Judgment: intact Diagnostics Vital Signs (24Hr): Vital Signs - 24 hr 07/07/25 20:00 07/07/25 21:16 07/08/25 08:00 Temperature 97.9 F 97.3 F Pulse Rate 81 81 93 Respiratory Rate 16 16 Blood Pressure 123/74 123/74 110/58 L Pulse Oximetry 99 96 Oxygen Delivery Method Room Air Room Air Oxygen Flow Rate 07/08/25 13:14 07/08/25 13:15 07/08/25 13:25 Temperature 97.2 F 97.2 F 97.3 F Pulse Rate 95 95 83 Respiratory Rate 16 16 13 Blood Pressure 128/85 128/85 127/80 Pulse Oximetry 98 98 98 Oxygen Delivery Method Room Air Room Air Oxygen Flow Rate 07/08/25 15:32 07/08/25 15:35 07/08/25 15:40 Temperature 97.2 F Pulse Rate 88 85 85 Respiratory Rate 16 16 16 Blood Pressure 161/78 H 156/69 H 150/69 H Pulse Oximetry 96 98 98 Oxygen Delivery Method Room Air Room Air Room Air Oxygen Flow Rate 0 0 07/08/25 15:45 07/08/25 16:00 07/08/25 16:20 Temperature 97.4 F Pulse Rate 77 77 86 Respiratory Rate 16 16 16 Blood Pressure 139/77 135/79 129/80 Pulse Oximetry 98 98 98 Oxygen Delivery Method Room Air Room Air Oxygen Flow Rate 0 0 BMI result Body Mass Index 27.5 Labs 06/27/25 11:19 07/07/25 10:15 Labs: Laboratory Results - last 48 hr 07/07/25 10:15 Absolute Neuts (auto) 4.6 Creatinine 1.18 Estim Creat Clear Calc 73.0 Estimated GFR > 60 Imaging Radiology Impressions: ITS Impressions Chest X-Ray 06/14/25 16:43 IMPRESSION: No evidence for acute disease in the chest. Electronically signed by: Concepcion Delarosa MD 06/14/2025 04:54 PM EDT RP Head CT 06/27/25 10:09 IMPRESSION: No acute fracture, bony calvarium. No acute intracranial hemorrhage. Atherosclerosis disease, intracranial. Electronically signed by: Pino Ponce MD 06/27/2025 10:44 AM EST RP Hip X-Ray 07/06/25 17:03 IMPRESSION: Unremarkable right hip exam. Small radiopaque BB-like metallic density overlying the right hip joint. Electronically signed by: Evan Poon MD 07/07/2025 07:14 AM EST RP Medications Medications Current Medications Acetaminophen (Acetaminophen 325 Mg Tablet) 975 mg PO BID PRN PRN Reason: Pain, Moderate(Pain Scale 4-6) Last Admin: 07/08/25 16:45 Dose: 975 mg Al Hydroxide/Mg Hydroxide (Magnesium Hydrox/Alum Hydrox 30 Ml Oral.Susp) 30 ml PO Q6H PRN PRN Reason: Heartburn/Nausea Last Admin: 06/30/25 12:21 Dose: 30 ml Aspirin (Aspirin Enteric Coated 81 Mg Tablet.Dr) 81 mg PO DAILY [facility] Last Admin: 07/08/25 16:42 Dose: 81 mg Atorvastatin Calcium (Atorvastatin Calcium 40 Mg Tablet) 40 mg PO BEDTIME [facility] Last Admin: 07/07/25 21:15 Dose: 40 mg Benztropine Mesylate (Benztropine Mesylate 1 Mg Tablet) 1 mg PO BID [facility] Last Admin: 07/08/25 13:23 Dose: Not Given Budesonide (Budesonide 180 Mcg Aer.Pow.Ba) 2 puff INHALE RDAILY [facility] Last Admin: 07/08/25 13:22 Dose: Not Given Calcium Carbonate/Cholecalciferol (Calcium + Vitamin D 250 Mg Tablet) 500 mg PO BID [facility] Last Admin: 07/08/25 13:23 Dose: Not Given Clozapine (Clozapine 100 Mg Tablet) 300 mg PO BEDTIME [facility] Last Admin: 07/07/25 21:15 Dose: 300 mg Diphenhydramine HCl (Diphenhydramine Hcl 25 Mg Capsule) 50 mg PO BEDTIME PRN PRN Reason: Insomnia Docusate Sodium (Docusate Sodium 100 Mg Capsule) 100 mg PO BID [facility] Last Admin: 07/08/25 13:23 Dose: Not Given Famotidine (Famotidine 20 Mg Tablet) 20 mg PO BID [facility] Last Admin: 07/08/25 13:24 Dose: Not Given Folic Acid (Folic Acid 1 Mg Tablet) 1 mg PO DAILY [facility] Last Admin: 07/08/25 13:24 Dose: Not Given Hydroxyzine HCl (Hydroxyzine Hcl 50 Mg Tablet) 50 mg PO Q8H PRN PRN Reason: Anxiety Last Admin: 07/07/25 14:19 Dose: 50 mg Ibuprofen (Ibuprofen 800 Mg Tablet) 800 mg PO Q8H PRN PRN Reason: moderate pain Last Admin: 07/07/25 11:46 Dose: 800 mg Lactase (Lactase Tablet) 3 tab PO TIDWM [facility] Last Admin: 07/08/25 16:43 Dose: 3 tab Magnesium Hydroxide (Milk Of Magnesia 30 Ml Oral.Susp) 30 ml PO DAILY PRN PRN Reason: Constipation [facility] Ox[facility] ([facility] 400 Mg [facility]t) [facility] Admin: 07/08/25 17:23 Dose: 400 mg Metformin HCl (Metformin Hcl 500 Mg Tablet) 500 mg PO DAILY [facility] Last Admin: 07/08/25 16:39 Dose: 500 mg Methocarbamol (Methocarbamol 500 Mg Tablet) 500 mg PO TID PRN PRN Reason: severe pain Last Admin: 07/06/25 21:14 Dose: 500 mg Metoprolol Tartrate (Metoprolol Tartrate 50 Mg Tablet) 50 mg PO BID [facility]; Protocol Last Admin: 07/08/25 13:25 Dose: Not Given Multivitamins/Vitamin C (Multivitamin Tablet) 1 tab PO DAILY [facility] Last Admin: 07/08/25 13:26 Dose: Not Given Naloxone HCl (Naloxone Hcl 0.4 Mg/Ml Vial) 0.04 mg IVPUSH Q5M PRN PRN Reason: Excessive sedation or RR < 8 Nicotine Polacrilex (Nicotine Polacrilex 2 Mg Gum) 2 mg BUCCAL Q2H PRN PRN Reason: Nicotine Cravings Nitroglycerin (Nitroglycerin 0.4 Mg Tab.Subl) 0.4 mg SUBLINGUAL Q5MX3 PRN PRN Reason: chest pain Polyethylene Glycol (Polyethylene Glycol 3350 17 Gm Powd.Pack) 17 gm PO DAILY PRN PRN Reason: Constipation Last Admin: 06/22/25 14:56 Dose: 17 gm Sertraline HCl (Sertraline Hcl 100 Mg Tablet) 100 mg PO DAILY [facility] Last Admin: 07/08/25 16:39 Dose: 100 mg Simethicone (Simethicone 80 Mg Tab.Chew) 80 mg PO QIDWMHS [facility] Last Admin: 07/08/25 17:23 Dose: 80 mg Sucralfate (Sucralfate 1 Gm Tablet) 1 gm PO QIDACHS [facility] Last Admin: 07/08/25 16:44 Dose: 1 gm Tamsulosin HCl (Tamsulosin Hcl 0.4 Mg Capsule) 0.8 mg PO BEDTIME [facility] Last Admin: 07/07/25 21:15 Dose: 0.8 mg Trazodone HCl (Trazodone Hcl 50 Mg Tablet) 150 mg PO BEDTIME [facility] Last Admin: 07/07/25 21:15 Dose: 150 mg Trazodone HCl (Trazodone Hcl 50 Mg Tablet) 50 mg PO BEDTIME PRN PRN Reason: Insomnia Venlafaxine HCl (Venlafaxine Hcl Er 37.5 Mg Cap.Er.24h) 37.5 mg PO DAILY [facility] Last Admin: 07/08/25 16:39 Dose: 37.5 mg Vitamin D (Cholecalciferol (Vitamin D3) 25 Mcg Tablet) 50 mcg PO DAILY [facility] Last Admin: 07/08/25 13:23 Dose: Not Given Allergies Allergies Allergy/AdvReac Type Severity Reaction Status Date / Time bupropion Allergy Rash Verified 06/09/25 19:07 haloperidol (From Haldol) Allergy Rash Verified 06/09/25 19:07 lactose Allergy Gastrointestinal Verified 06/09/25 19:07 Upset peanut Allergy Anaphylaxis Verified 06/09/25 19:07 ziprasidone Allergy Rash Verified 06/09/25 19:07 Assessment & Plan Assessment & Plan (1) Schizoaffective disorder, bipolar type: Status: Acute Code(s): F25.0 - Schizoaffective disorder, bipolar type (2) PTSD (post-traumatic stress disorder): Status: Acute Code(s): F43.10 - Post-traumatic stress disorder, unspecified (3) Right hip pain: Status: Acute Code(s): M25.551 - Pain in right hip (4) Right knee pain: Status: Acute Code(s): M25.561 - Pain in right knee Plan Mr. Brink is a 59 y/o DWM with documented h/o schizophrenia, bipolar d/o, depression, PTSD, KASSIE, sleep apnea, HTN, CAD, hyponatremia, peripheral neuropathy, 3 IA's s/p CABG, unsteady gait, and type II DM who was brought to the [facility] ED due to AH and SI. He was transferred to [facility] for tx of severe depression, SI and psychotic sx. Plan: Admitted to for safety and stabilization Legal status- CV Admission medical consult ordered 5 minute safety checks due to fall risk. Uses a walker Meds- Continue current medications from [facility] list for now: Clozaril 50 mg qhs Clozaril 300 mg qhs for now (grp home list says 'bid at hs' and external med rec shows 300 mg qhs) Effexor XR 75 mg qam *per external med rec, it looks like pt is cross titrating from venlafaxine to sertraline, was previously on 225 mg qd. Will continue cross titration after clarifying when the doses were last adjusted diphenhydramine 50 mg qhs prn for insomna hydroxyzine 50 mg q 8 hrs prn for anxiety sertraline 100 mg qd trazodone 100 mg qhs acetaminophen 975 mg bid ASA 81 mg qam budesonide-formoterol 2 inhalations qd Calcium-Vit D 500mg-5 mcg tabs, 2 tabs po bid docusate 100 mg bid folic acid 1 mg qam ibuprofen 800 mg q 8 hrs prn for pain lactase 9000 unit tablet tid magnesium oxide 400 mg bid metformin 500 mg qam methocarbamol 500 mg q 8 hrs for muscle pain metoprolol 50 mg bid MVI qd nitroglycerin 0.4 mg SL q 5 min prn for chest pain u pt 3 doses simethicone 80 mg 4x/day after meals and at hs sucralfate 1 g 4x/day before meals tamsulosin 0.8 mg qhs Vit B complex qam Vit D3 50 mcg qam Will consider ECT 06/11: Trial GBP 100 mg TID for anxiety and pain. 06/12: DC Gabapentin. Monitor urinary retention/incontinence. He is on Tamsulosin. Continue current management and treatment plan. 06/13: Will refer to ECT due to inadequate response to multiple psychotropic medication trials including: current regimen- clozapine 350 mg qd, sertraline 100 mg qd, venlafaxine (tapering off, was up to 225 mg qd), trazodone 100 mg qhs Prior med trials: Prozac, Cymbalta, Lamictal, Strattera, Zyprexa, Adderall ER, Invega Sustenna, VPA -Will request hospitalist consult for risk stratification for ECT -Taper venlafaxine to 37.5 mg starting tomorrow 06/14: ECT ordered for tomorrow am. NPO except for meds with sips of water after midnight. Medically cleared for ECT today by Alejandra Dangelo NP ECT risk stratification. Patient without previous problems with anesthesia, has previously undergone ECT RCRI 0 points, no further cardiac workup or treatment indicated at this time. Patient denies any past problems with anesthesia. EKG pending, no evidence of ischemic changes Based on stated PMH, HPI, and physical exam, there are no There are no obvious contraindications to the planned procedure. Patient with moderate risk due to advancing age and history of coronary artery disease. 06/15: Completed ECT #1 today (RUL) and tolerated it well. Will continue current tx plan for now, with ECT #2 scheduled for 06/17: Continue current tx plan. ECT #2 scheduled for tomorrow. NPO and ECT orders entered. 06/17: Did well w/ ECT #2. Ordered NPO for ECT #3 on Tuesday 06/19: Laying in bed most of day. Patient continues to report feeling depressed; he reports not sleeping well last night but is not clear for reason. denies SI/HI/VH. +AH telling me I'm going to . Encouraged to leave room. continue tx plan. 06/20: ECT #3 completed today. Endorses ongoing depressed mood without signif improvement. Continue current tx plan. ECT #4 scheduled for Fri, 06/22. ECT & NPO orders are entered for 06/22 06/21: Pt is agreeable w/ plan to d/c venlafaxine (seems to have started x-titration to sertraline during one of his inpt admissions). Will titrate standing dose of trazodone to 150 mg qhs. ECT #4 scheduled for tomorrow 06/22: Completed ECT #4. Now off venlafaxine. C/O constipation x 3 days. TW asked pt's nurse to give him MiraLax. Pt denies significant improvement in depression thus far. I explained that it's still early in the ECT series to expect a significant response. Medical necessity for continued inpatient psychiatric treatment: Continuation of ECT series for depression. Unable to engage in outpatient ECT since there are no ECT providing facilities near his [facility] in [place]. Treatment failure with multiple psychotropic trials and previous positive reponse to ECT 06/23: Pt has noticed subtle improvement in his mood since starting ECT. Endorses some confusion and dissociative sx which could be related to ECT and/or discontinuing the venlafaxine. Will re-start venlafaxine 37.5 mg tomorrow am for more gradual taper to reduce discontinuation sx. Will d/c clozapine 25 mg am dose w/ plan to cross titrate to Seroquel, which was reportedly effective in the past for tx of depression and AH, also since pt has multiple SE from the clozapine without any noticeable benefit. Pt is agreeable w/ this tx plan 06/24: Mood gradually improving, brighter affect today. Will continue current med regimen for now and continue cross-titration over the weekend. ECT #5 done today. #6 scheduled for Fri, 06/27 06/25: Will start lorazepam 0.5 mg bid for tx of potential venlafaxine discontinuation syndrome +/- EPS. Advised pt to stand up slowly to reduce risk of falls. 06/26: Continue current tx plan. ECT #6 scheduled for tomorrow. NPO orders in 06/27: ECT cx'd after pt had an unwitnessed fall and reported hitting the back of his head. CT head showed no acute changes and EKG was unremarkable. Pt reported blacking out prior to falling, which has reportedly happened [facility] his [facility] also. He doesn't think any of the recent med changes contributed to the fall. As a precaution, will hold the Seroquel tonight since it was recently added. TW advised pt to sit up on his bed for a few minutes before standing in the morning and then stand up slowly and pt expressed an understanding and agreed. 06/28: Medically cleared by hospitalist to resume ECT. Input much appreciated. NPO orders in, ECT #6 scheduled for tomorrow. Pt c/o R knee pain after the fall Orthostatics ordered q 8 hrs x 24 hrs by hospitalist R knee xray on 06/28: was negative for any acute changes. signif for mild OA/osteopenia 06/29: Completed ECT #6 today. Mood is gradually improving. Will continue current med regimen. ECT #7 scheduled for Friday, 07/01 06/30: Mood is improving. ECT #7 scheduled for tomorrow. NPO order in. Continue current med regimen 07/01: Tolerated ECT #7 well. Orthostatics done earlier this week were neg. Continue current tx plan. ECT#8 scheduled for Friday, 07/04. NPO orders are in 07/02/25: Patient is in bed after lunch, pleasant and cooperative upon approach. Denies SI/SIB/HI/AVH but stating that he hears a little bit voices telling me I am dying . Reports anxiety and depression 03/03. Reports a little bit constipated but having last bowel movement was yesterday. Encourage fluid intake. Patient reports some shakiness twisting hand as side effect of medications. Reports ECTs helpful. 07/03/25: Patient spent most of the morning in bed, calm, pleasant and cooperative. Continue to report hand shaking and muscle twisting. Denies voices , denies SI/SIB/HI/VH. Report anxiety and depression a 03/03. Patient to have ECT tomorrow. Patient compliant with meds and slept for 8 hours per nursing. start Cogentin 0.5mg BID for possible EPS. 07/04/25: Twitching improved overall w/ addition of Cogentin per pt report. Continue current tx plan. ECT #9 scheduled for 07/06. 07/05: Cancelled ECT for tomorrow 2/2 reports of confusion. Will do MoCA tomorrow. Hold off on increasing Cogentin due to risk of worsening cognitive SE Informed Consent: understands 07/06: c/o R hip pain that he attributed to fall last wk. R hip xray done, seems to be neg but awaiting radiology report. LE venous duplex neg for DVT. MoCA done today- . Will increase cogentin to 1 mg bid per pt request, monitor for cognitive SE. Will schedule next ECT for Saturday 07/07: Switched pt's resucitation status to DNR/DNI per his request. He had paperwork already on file [facility] the pen[facility]iary, which was faxed here. Will need to lift the DNR/DNI prior to ECT. Continue current tx plan- next ECT scheduled for tomorrow, 07/08 07/08: Did well w/ ECT #9 today. Mood has improved overall and pt is agreeable w/ plan to d/c back to his [facility] home late next wk. ECT schedule is full on Friday and next ECT will be scheduled for 07/13-- will likely be his last ECT here before discharging to [facility] home in [place]. Continue curren tx plan Reason for continued inpatient stay Substantial Risk for: med/psych decompensation Time Spent With Patient Time: Total time managing care of this patient today ____ minutes.
[2025-07-08] MEDS: Calcium + Vitamin D 250 MG TABLET 500 MG PO (21:23)
[2025-07-09 07:42] VITALS: BP 116/59; PULSE 75; RESP 20; TEMP 36.5; O2SAT 97
[2025-07-09] MEDS: Calcium + Vitamin D 250 MG TABLET 500 MG PO ×2 (08:39→21:22)
[2025-07-09] MEDS: Venlafaxine HCl ER 37.5 MG CAP.ER.24H PO (08:40)
[2025-07-09] MEDS: Aspirin Enteric Coated 81 MG TABLET.DR PO (08:40)
--- NOTE | 2025-07-09 09:13 | HO.PSYCHPN ---
Subjective Subjective Date of Service: 07/09/25 Reason For Visit: SI Interim History: Chart reviewed, case discussed with RN Remains depressed but says he feels ECT is starting to help. I feel a little better. He reports good sleep. Mostly isolates in his room. Tolerating medications. Denies SI. Review of Systems Review of Systems Denies any shortness of breath, chest pain, headaches, dysuria, abdominal pain or discomfort, nausea, vomiting or diarrhea. Denies fever or chills. Yes all other systems are reviewed and are negative Constitutional: Reports no additional constitutional complaints Eyes: Reports no additional eye complaints Reports system reviewed and no additional complaints, except as documented Cardiovascular: Reports as per HPI Respiratory: Reports as per HPI Gastrointestinal: Reports as per HPI Genitourinary: Reports no additional male genitourinary complaints Musculoskeletal: Reports no additional musculoskeletal complaints Skin/Breast: Reports system reviewed and no additional complaints, except as docu Psychiatric: Reports no additional psychiatric complaints Endocrine: Reports no additional endocrine complaints Hematologic/Lymphatic: Reports no additional hematologic/lymphatic complaints Allergic/Immunologic: Reports no additional allergic/immunologic complaints Mental Status Exam Mental Status Exam Narrative: Appearance: sitting in chair in milieu. grooming/hygiene fair. good eye contact Attitude: Cooperative. Speech: Fluent and wnl in regard to volume, tone, prosody Motor activity: Calm. Occasional chomping (seems to be related to being edentulous). Otherwise no abnormal movements observed Mood: okay Affect: appropriate, brightens up appropriately Thought process: goal directed and without evidence of formal thought disorder Thought content: Denies SI. Reports foot pain (chronic issue) Perception: does not appear to respond to internal stimuli Cognition grossly intact Insight: fair Judgment: intact Patient Appearance: Appropriate Patient Orientation: Person, Place, Time and Situation Level of Consciousness: Drowsy Patient Behavior: Guarded Mood Description: Depressed Affect Description: Depressed Ability to Follow Directions: Good Speech Pattern: Clear Memory Description: Intact Diagnostics Vital Signs (24Hr): Vital Signs - 24 hr 07/08/25 13:14 07/08/25 13:15 07/08/25 13:25 Temperature 97.2 F 97.2 F 97.3 F Pulse Rate 95 95 83 Respiratory Rate 16 16 13 Blood Pressure 128/85 128/85 127/80 Pulse Oximetry 98 98 98 Oxygen Delivery Method Room Air Room Air Oxygen Flow Rate 07/08/25 15:32 07/08/25 15:35 07/08/25 15:40 Temperature 97.2 F Pulse Rate 88 85 85 Respiratory Rate 16 16 16 Blood Pressure 161/78 H 156/69 H 150/69 H Pulse Oximetry 96 98 98 Oxygen Delivery Method Room Air Room Air Room Air Oxygen Flow Rate 0 0 07/08/25 15:45 07/08/25 16:00 07/08/25 16:20 Temperature 97.4 F Pulse Rate 77 77 86 Respiratory Rate 16 16 16 Blood Pressure 139/77 135/79 129/80 Pulse Oximetry 98 98 98 Oxygen Delivery Method Room Air Room Air Oxygen Flow Rate 0 0 07/08/25 21:20 07/09/25 07:42 Temperature 97.7 F Pulse Rate 89 75 Respiratory Rate 20 Blood Pressure 125/71 116/59 L Pulse Oximetry 100 97 Oxygen Delivery Method Room Air Room Air Oxygen Flow Rate BMI result Body Mass Index 27.5 Labs 06/27/25 11:19 07/07/25 10:15 Labs: Laboratory Results - last 48 hr 07/07/25 10:15 Absolute Neuts (auto) 4.6 Creatinine 1.18 Estim Creat Clear Calc 73.0 Estimated GFR > 60 Imaging Radiology Impressions: ITS Impressions Chest X-Ray 06/14/25 16:43 IMPRESSION: No evidence for acute disease in the chest. Electronically signed by: Concepcion Delarosa MD 06/14/2025 04:54 PM EDT RP Head CT 06/27/25 10:09 IMPRESSION: No acute fracture, bony calvarium. No acute intracranial hemorrhage. Atherosclerosis disease, intracranial. Electronically signed by: Pino Ponce MD 06/27/2025 10:44 AM EST RP Hip X-Ray 07/06/25 17:03 IMPRESSION: Unremarkable right hip exam. Small radiopaque BB-like metallic density overlying the right hip joint. Electronically signed by: Evan Poon MD 07/07/2025 07:14 AM EST RP Medications Medications Current Medications Acetaminophen (Acetaminophen 325 Mg Tablet) 975 mg PO BID PRN PRN Reason: Pain, Moderate(Pain Scale 4-6) Last Admin: 07/08/25 16:45 Dose: 975 mg Al Hydroxide/Mg Hydroxide (Magnesium Hydrox/Alum Hydrox 30 Ml Oral.Susp) 30 ml PO Q6H PRN PRN Reason: Heartburn/Nausea Last Admin: 06/30/25 12:21 Dose: 30 ml Aspirin (Aspirin Enteric Coated 81 Mg Tablet.Dr) 81 mg PO DAILY [facility] Last Admin: 07/09/25 08:40 Dose: 81 mg Atorvastatin Calcium (Atorvastatin Calcium 40 Mg Tablet) 40 mg PO BEDTIME [facility] Last Admin: 07/08/25 21:23 Dose: 40 mg Benztropine Mesylate (Benztropine Mesylate 1 Mg Tablet) 1 mg PO BID [facility] Last Admin: 07/09/25 08:39 Dose: 1 mg Budesonide (Budesonide 180 Mcg Aer.Pow.Ba) 2 puff INHALE RDAILY [facility] Last Admin: 07/09/25 08:45 Dose: Not Given Calcium Carbonate/Cholecalciferol (Calcium + Vitamin D 250 Mg Tablet) 500 mg PO BID [facility] Last Admin: 07/09/25 08:39 Dose: 500 mg Clozapine (Clozapine 100 Mg Tablet) 300 mg PO BEDTIME [facility] Last Admin: 07/08/25 21:23 Dose: 300 mg Diphenhydramine HCl (Diphenhydramine Hcl 25 Mg Capsule) 50 mg PO BEDTIME PRN PRN Reason: Insomnia Docusate Sodium (Docusate Sodium 100 Mg Capsule) 100 mg PO BID [facility] Last Admin: 07/09/25 08:41 Dose: 100 mg Famotidine (Famotidine 20 Mg Tablet) 20 mg PO BID [facility] Last Admin: 07/09/25 08:40 Dose: 20 mg Folic Acid (Folic Acid 1 Mg Tablet) 1 mg PO DAILY [facility] Last Admin: 07/09/25 08:40 Dose: 1 mg Hydroxyzine HCl (Hydroxyzine Hcl 50 Mg Tablet) 50 mg PO Q8H PRN PRN Reason: Anxiety Last Admin: 07/07/25 14:19 Dose: 50 mg Ibuprofen (Ibuprofen 800 Mg Tablet) 800 mg PO Q8H PRN PRN Reason: moderate pain Last Admin: 07/07/25 11:46 Dose: 800 mg Lactase (Lactase Tablet) 3 tab PO TIDWM [facility] Last Admin: 07/09/25 08:40 Dose: 3 tab Magnesium Hydroxide (Milk Of Magnesia 30 Ml Oral.Susp) 30 ml PO DAILY PRN PRN Reason: Constipation [facility] ([facility] 400 Mg [facility]t) [facility] Last Admin: 07/09/25 08:40 Dose: 400 mg Metformin HCl (Metformin Hcl 500 Mg Tablet) 500 mg PO DAILY [facility] Last Admin: 07/09/25 08:40 Dose: 500 mg Methocarbamol (Methocarbamol 500 Mg Tablet) 500 mg PO TID PRN PRN Reason: severe pain Last Admin: 07/06/25 21:14 Dose: 500 mg Metoprolol Tartrate (Metoprolol Tartrate 50 Mg Tablet) 50 mg PO BID [facility]; Protocol Last Admin: 07/09/25 08:39 Dose: 50 mg Multivitamins/Vitamin C (Multivitamin Tablet) 1 tab PO DAILY [facility] Last Admin: 07/09/25 08:41 Dose: 1 tab Naloxone HCl (Naloxone Hcl 0.4 Mg/Ml Vial) 0.04 mg IVPUSH Q5M PRN PRN Reason: Excessive sedation or RR < 8 Nicotine Polacrilex (Nicotine Polacrilex 2 Mg Gum) 2 mg BUCCAL Q2H PRN PRN Reason: Nicotine Cravings Nitroglycerin (Nitroglycerin 0.4 Mg Tab.Subl) 0.4 mg SUBLINGUAL Q5MX3 PRN PRN Reason: chest pain Polyethylene Glycol (Polyethylene Glycol 3350 17 Gm Powd.Pack) 17 gm PO DAILY PRN PRN Reason: Constipation Last Admin: 06/22/25 14:56 Dose: 17 gm Sertraline HCl (Sertraline Hcl 100 Mg Tablet) 100 mg PO DAILY [facility] Last Admin: 07/09/25 08:40 Dose: 100 mg Simethicone (Simethicone 80 Mg Tab.Chew) 80 mg PO QIDWMHS [facility] Last Admin: 07/09/25 08:39 Dose: 80 mg Sucralfate (Sucralfate 1 Gm Tablet) 1 gm PO QIDACHS [facility] Last Admin: 07/09/25 08:40 Dose: 1 gm Tamsulosin HCl (Tamsulosin Hcl 0.4 Mg Capsule) 0.8 mg PO BEDTIME [facility] Last Admin: 07/08/25 21:22 Dose: 0.8 mg Trazodone HCl (Trazodone Hcl 50 Mg Tablet) 150 mg PO BEDTIME [facility] Last Admin: 07/08/25 21:22 Dose: 150 mg Trazodone HCl (Trazodone Hcl 50 Mg Tablet) 50 mg PO BEDTIME PRN PRN Reason: Insomnia Venlafaxine HCl (Venlafaxine Hcl Er 37.5 Mg Cap.Er.24h) 37.5 mg PO DAILY [facility] Last Admin: 07/09/25 08:40 Dose: 37.5 mg Vitamin D (Cholecalciferol (Vitamin D3) 25 Mcg Tablet) 50 mcg PO DAILY [facility] Last Admin: 07/09/25 08:39 Dose: 50 mcg Allergies Allergies Allergy/AdvReac Type Severity Reaction Status Date / Time bupropion Allergy Rash Verified 06/09/25 19:07 haloperidol (From Haldol) Allergy Rash Verified 06/09/25 19:07 lactose Allergy Gastrointestinal Verified 06/09/25 19:07 Upset peanut Allergy Anaphylaxis Verified 06/09/25 19:07 ziprasidone Allergy Rash Verified 06/09/25 19:07 Assessment & Plan Assessment & Plan (1) Schizoaffective disorder, bipolar type: Status: Acute Code(s): F25.0 - Schizoaffective disorder, bipolar type (2) PTSD (post-traumatic stress disorder): Status: Acute Code(s): F43.10 - Post-traumatic stress disorder, unspecified (3) Right hip pain: Status: Acute Code(s): M25.551 - Pain in right hip (4) Right knee pain: Status: Acute Code(s): M25.561 - Pain in right knee Plan Mr. Brink is a 59 y/o DWM with documented h/o schizophrenia, bipolar d/o, depression, PTSD, KASSIE, sleep apnea, HTN, CAD, hyponatremia, peripheral neuropathy, 3 MS's s/p CABG, unsteady gait, and type II DM who was brought to the [facility] ED due to AH and SI. He was transferred to [facility] for tx of severe depression, SI and psychotic sx. Plan: Admitted to for safety and stabilization Legal status- CV Admission medical consult ordered 5 minute safety checks due to fall risk. Uses a walker Meds- Continue current medications from [facility] list for now: Clozaril 50 mg qhs Clozaril 300 mg qhs for now (grp home list says 'bid at hs' and external med rec shows 300 mg qhs) Effexor XR 75 mg qam *per external med rec, it looks like pt is cross titrating from venlafaxine to sertraline, was previously on 225 mg qd. Will continue cross titration after clarifying when the doses were last adjusted diphenhydramine 50 mg qhs prn for insomna hydroxyzine 50 mg q 8 hrs prn for anxiety sertraline 100 mg qd trazodone 100 mg qhs acetaminophen 975 mg bid ASA 81 mg qam budesonide-formoterol 2 inhalations qd Calcium-Vit D 500mg-5 mcg tabs, 2 tabs po bid docusate 100 mg bid folic acid 1 mg qam ibuprofen 800 mg q 8 hrs prn for pain lactase 9000 unit tablet tid magnesium oxide 400 mg bid metformin 500 mg qam methocarbamol 500 mg q 8 hrs for muscle pain metoprolol 50 mg bid MVI qd nitroglycerin 0.4 mg SL q 5 min prn for chest pain u pt 3 doses simethicone 80 mg 4x/day after meals and at hs sucralfate 1 g 4x/day before meals tamsulosin 0.8 mg qhs Vit B complex qam Vit D3 50 mcg qam Will consider ECT 06/11: Trial GBP 100 mg TID for anxiety and pain. 06/12: DC Gabapentin. Monitor urinary retention/incontinence. He is on Tamsulosin. Continue current management and treatment plan. 06/13: Will refer to ECT due to inadequate response to multiple psychotropic medication trials including: current regimen- clozapine 350 mg qd, sertraline 100 mg qd, venlafaxine (tapering off, was up to 225 mg qd), trazodone 100 mg qhs Prior med trials: Prozac, Cymbalta, Lamictal, Strattera, Zyprexa, Adderall ER, Invega Sustenna, VPA -Will request hospitalist consult for risk stratification for ECT -Taper venlafaxine to 37.5 mg starting tomorrow 06/14: ECT ordered for tomorrow am. NPO except for meds with sips of water after midnight. Medically cleared for ECT today by Alejandra Dangelo NP ECT risk stratification. Patient without previous problems with anesthesia, has previously undergone ECT RCRI 0 points, no further cardiac workup or treatment indicated at this time. Patient denies any past problems with anesthesia. EKG pending, no evidence of ischemic changes Based on stated PMH, HPI, and physical exam, there are no There are no obvious contraindications to the planned procedure. Patient with moderate risk due to advancing age and history of coronary artery disease. 06/15: Completed ECT #1 today (RUL) and tolerated it well. Will continue current tx plan for now, with ECT #2 scheduled for 06/17: Continue current tx plan. ECT #2 scheduled for tomorrow. NPO and ECT orders entered. 06/17: Did well w/ ECT #2. Ordered NPO for ECT #3 on Tuesday 06/19: Laying in bed most of day. Patient continues to report feeling depressed; he reports not sleeping well last night but is not clear for reason. denies SI/HI/VH. +AH telling me I'm going to . Encouraged to leave room. continue tx plan. 06/20: ECT #3 completed today. Endorses ongoing depressed mood without signif improvement. Continue current tx plan. ECT #4 scheduled for 06/22. ECT & NPO orders are entered for 06/22 06/21: Pt is agreeable w/ plan to d/c venlafaxine (seems to have started x-titration to sertraline during one of his inpt admissions). Will titrate standing dose of trazodone to 150 mg qhs. ECT #4 scheduled for tomorrow 06/22: Completed ECT #4. Now off venlafaxine. C/O constipation x 3 days. TW asked pt's nurse to give him MiraLax. Pt denies significant improvement in depression thus far. I explained that it's still early in the ECT series to expect a significant response. Medical necessity for continued inpatient psychiatric treatment: Continuation of ECT series for depression. Unable to engage in outpatient ECT since there are no ECT providing facilities near his [facility] in [place]. Treatment failure with multiple psychotropic trials and previous positive reponse to ECT 06/23: Pt has noticed subtle improvement in his mood since starting ECT. Endorses some confusion and dissociative sx which could be related to ECT and/or discontinuing the venlafaxine. Will re-start venlafaxine 37.5 mg tomorrow am for more gradual taper to reduce discontinuation sx. Will d/c clozapine 25 mg am dose w/ plan to cross titrate to Seroquel, which was reportedly effective in the past for tx of depression and AH, also since pt has multiple SE from the clozapine without any noticeable benefit. Pt is agreeable w/ this tx plan 06/24: Mood gradually improving, brighter affect today. Will continue current med regimen for now and continue cross-titration over the weekend. ECT #5 done today. #6 scheduled for 06/27: Will start lorazepam 0.5 mg bid for tx of potential venlafaxine discontinuation syndrome +/- EPS. Advised pt to stand up slowly to reduce risk of falls. 06/26: Continue current tx plan. ECT #6 scheduled for tomorrow. NPO orders in 06/27: ECT cx'd after pt had an unwitnessed fall and reported hitting the back of his head. CT head showed no acute changes and EKG was unremarkable. Pt reported blacking out prior to falling, which has reportedly happened at his [facility] also. He doesn't think any of the recent med changes contributed to the fall. As a precaution, will hold the Seroquel tonight since it was recently added. TW advised pt to sit up on his bed for a few minutes before standing in the morning and then stand up slowly and pt expressed an understanding and agreed. 06/28: Medically cleared by hospitalist to resume ECT. Input much appreciated. NPO orders in, ECT #6 scheduled for tomorrow. Pt c/o R knee pain after the fall Orthostatics ordered q 8 hrs x 24 hrs by hospitalist R knee xray on 06/28: was negative for any acute changes. signif for mild OA/osteopenia 06/29: Completed ECT #6 today. Mood is gradually improving. Will continue current med regimen. ECT #7 scheduled for Friday, 07/01 06/30: Mood is improving. ECT #7 scheduled for tomorrow. NPO order in. Continue current med regimen 07/01: Tolerated ECT #7 well. Orthostatics done earlier this week were neg. Continue current tx plan. ECT#8 scheduled for Friday, 07/04. NPO orders are in 07/02/25: Patient is in bed after lunch, pleasant and cooperative upon approach. Denies SI/SIB/HI/AVH but stating that he hears a little bit voices telling me I am dying . Reports anxiety and depression 03/03. Reports a little bit constipated but having last bowel movement was yesterday. Encourage fluid intake. Patient reports some shakiness twisting hand as side effect of medications. Reports ECTs helpful. 07/03/25: Patient spent most of the morning in bed, calm, pleasant and cooperative. Continue to report hand shaking and muscle twisting. Denies voices , denies SI/SIB/HI/VH. Report anxiety and depression a 03/03. Patient to have ECT tomorrow. Patient compliant with meds and slept for 8 hours per nursing. start Cogentin 0.5mg BID for possible EPS. 07/04/25: Twitching improved overall w/ addition of Cogentin per pt report. Continue current tx plan. ECT #9 scheduled for Fri, 07/06. 07/05: Cancelled ECT for tomorrow 2/2 reports of confusion. Will do MoCA tomorrow. Hold off on increasing Cogentin due to risk of worsening cognitive SE Informed Consent: understands 07/06: c/o R hip pain that he attributed to fall last wk. R hip xray done, seems to be neg but awaiting radiology report. LE venous duplex neg for DVT. MoCA done today- . Will increase cogentin to 1 mg bid per pt request, monitor for cognitive SE. Will schedule next ECT for Saturday 07/07: Switched pt's resucitation status to DNR/DNI per his request. He had paperwork already on file at the [facility], which was faxed here. Will need to lift the DNR/DNI prior to ECT. Continue current tx plan- next ECT scheduled for tomorrow, 07/08 07/08: Did well w/ ECT #9 today. Mood has improved overall and pt is agreeable w/ plan to d/c back to his [facility] late next wk. ECT schedule is full on Friday and next ECT will be scheduled for Fri, 07/13-- will likely be his last ECT here before discharging to [facility] in [place]. Continue hyun tx plan 07/09: continue current management and treatment plan. Reason for continued inpatient stay Substantial Risk for: inability to function and rapid decompensation Time Spent With Patient Time: Total time managing care of this patient today ____ minutes.
[2025-07-09 20:00] VITALS: BP 105/50; PULSE 77; RESP 18; TEMP 36.5; O2SAT 97
[2025-07-09 21:16] VITALS: BP 109/65; PULSE 85; RESP 17; O2SAT 99
[2025-07-10 08:00] VITALS: BP 139/63; PULSE 86; RESP 16; TEMP 36.4; O2SAT 96
[2025-07-10] MEDS: Calcium + Vitamin D 250 MG TABLET 500 MG PO ×2 (08:38→20:43)
[2025-07-10] MEDS: Venlafaxine HCl ER 37.5 MG CAP.ER.24H PO (08:38)
[2025-07-10] MEDS: Aspirin Enteric Coated 81 MG TABLET.DR PO (08:39)
--- NOTE | 2025-07-10 09:36 | P.PNPSI_ITS ---
Subjective Subjective Date of Service: 07/10/25 Reason For Visit: SI Interim History: Chart reviewed, case discussed with RN Continues to report improvement in mood however still isolates in his room and doesn't engage in the milieu. Polite with staff. Still depressed about his life situation. He reports good sleep. Tolerating medications. Denies SI. Review of Systems Review of Systems Denies any shortness of breath, chest pain, headaches, dysuria, abdominal pain or discomfort, nausea, vomiting or diarrhea. Denies fever or chills. Yes all other systems are reviewed and are negative Constitutional: Reports no additional constitutional complaints Eyes: Reports no additional eye complaints Reports system reviewed and no additional complaints, except as documented Cardiovascular: Reports as per HPI Respiratory: Reports as per HPI Gastrointestinal: Reports as per HPI Genitourinary: Reports no additional male genitourinary complaints Musculoskeletal: Reports no additional musculoskeletal complaints Skin/Breast: Reports system reviewed and no additional complaints, except as docu Psychiatric: Reports no additional psychiatric complaints Endocrine: Reports no additional endocrine complaints Hematologic/Lymphatic: Reports no additional hematologic/lymphatic complaints Allergic/Immunologic: Reports no additional allergic/immunologic complaints Mental Status Exam Mental Status Exam Narrative: Appearance: sitting in chair in milieu. grooming/hygiene fair. good eye contact Attitude: Cooperative. Speech: Fluent and wnl in regard to volume, tone, prosody Motor activity: Calm. Occasional chomping (seems to be related to being edentulous). Otherwise no abnormal movements observed Mood: okay Affect: appropriate, brightens up appropriately Thought process: goal directed and without evidence of formal thought disorder Thought content: Denies SI. Reports foot pain (chronic issue) Perception: does not appear to respond to internal stimuli Cognition grossly intact Insight: fair Judgment: intact Patient Appearance: Appropriate Patient Orientation: Person, Place, Time and Situation Level of Consciousness: Drowsy Patient Behavior: Guarded Mood Description: Depressed Affect Description: Depressed Ability to Follow Directions: Good Speech Pattern: Clear Memory Description: Intact Diagnostics Vital Signs (24Hr): Vital Signs - 24 hr 07/09/25 20:00 07/09/25 21:16 07/10/25 08:00 Temperature 97.7 F 97.5 F Pulse Rate 77 85 86 Respiratory Rate 18 17 16 Blood Pressure 105/50 L 109/65 139/63 Pulse Oximetry 97 99 96 Oxygen Delivery Method Room Air Room Air Room Air BMI result Body Mass Index 27.5 Labs 06/27/25 11:19 07/07/25 10:15 Labs: Laboratory Results - last 48 hr 07/07/25 10:15 Absolute Neuts (auto) 4.6 Creatinine 1.18 Estim Creat Clear Calc 73.0 Estimated GFR > 60 Imaging Radiology Impressions: ITS Impressions Chest X-Ray 06/14/25 16:43 IMPRESSION: No evidence for acute disease in the chest. Electronically signed by: Concepcion Delarosa MD 06/14/2025 04:54 PM EDT RP Head CT 06/27/25 10:09 IMPRESSION: No acute fracture, bony calvarium. No acute intracranial hemorrhage. Atherosclerosis disease, intracranial. Electronically signed by: Pino Ponce MD 06/27/2025 10:44 AM EST RP Hip X-Ray 07/06/25 17:03 IMPRESSION: Unremarkable right hip exam. Small radiopaque BB-like metallic density overlying the right hip joint. Electronically signed by: Evan Poon MD 07/07/2025 07:14 AM EST RP Medications Medications Current Medications Acetaminophen (Acetaminophen 325 Mg Tablet) 975 mg PO BID PRN PRN Reason: Pain, Moderate(Pain Scale 4-6) Last Admin: 07/09/25 16:44 Dose: 975 mg Al Hydroxide/Mg Hydroxide (Magnesium Hydrox/Alum Hydrox 30 Ml Oral.Susp) 30 ml PO Q6H PRN PRN Reason: Heartburn/Nausea Last Admin: 06/30/25 12:21 Dose: 30 ml Aspirin (Aspirin Enteric Coated 81 Mg Tablet.) 81 mg PO DAILY [facility] Last Admin: 07/10/25 08:39 Dose: 81 mg Atorvastatin Calcium (Atorvastatin Calcium 40 Mg Tablet) 40 mg PO BEDTIME [facility] Last Admin: 07/09/25 21:23 Dose: 40 mg Benztropine Mesylate (Benztropine Mesylate 1 Mg Tablet) 1 mg PO BID [facility] Last Admin: 07/10/25 08:39 Dose: 1 mg Budesonide (Budesonide 180 Mcg Aer.Pow.Ba) 2 puff INHALE RDAILY [facility] Last Admin: 07/10/25 08:15 Dose: Not Given Calcium Carbonate/Cholecalciferol (Calcium + Vitamin D 250 Mg Tablet) 500 mg PO BID [facility] Last Admin: 07/10/25 08:38 Dose: 500 mg Clozapine (Clozapine 100 Mg Tablet) 300 mg PO BEDTIME [facility] Last Admin: 07/09/25 21:23 Dose: 300 mg Diphenhydramine HCl (Diphenhydramine Hcl 25 Mg Capsule) 50 mg PO BEDTIME PRN PRN Reason: Insomnia Docusate Sodium (Docusate Sodium 100 Mg Capsule) 100 mg PO BID [facility] Last Admin: 07/10/25 08:38 Dose: 100 mg Famotidine (Famotidine 20 Mg Tablet) 20 mg PO BID [facility] Last Admin: 07/10/25 08:39 Dose: 20 mg Folic Acid (Folic Acid 1 Mg Tablet) 1 mg PO DAILY [facility] Last Admin: 07/10/25 08:39 Dose: 1 mg Hydroxyzine HCl (Hydroxyzine Hcl 50 Mg Tablet) 50 mg PO Q8H PRN PRN Reason: Anxiety Last Admin: 07/09/25 12:39 Dose: 50 mg Ibuprofen (Ibuprofen 800 Mg Tablet) 800 mg PO Q8H PRN PRN Reason: moderate pain Last Admin: 07/07/25 11:46 Dose: 800 mg Lactase (Lactase Tablet) 3 tab PO TIDWM [facility] Last Admin: 07/10/25 08:39 Dose: 3 tab Magnesium Hydroxide (Milk Of Magnesia 30 Ml Oral.Susp) 30 ml PO DAILY PRN PRN Reason: Constipation Magn[facility] Oxide ([facility] 400 Mg [facility]t) [facility] Last Admin: 07/10/25 08:38 Dose: 400 mg Metformin HCl (Metformin Hcl 500 Mg Tablet) 500 mg PO DAILY [facility] Last Admin: 07/10/25 08:39 Dose: 500 mg Methocarbamol (Methocarbamol 500 Mg Tablet) 500 mg PO TID PRN PRN Reason: severe pain Last Admin: 07/09/25 18:52 Dose: 500 mg Metoprolol Tartrate (Metoprolol Tartrate 50 Mg Tablet) 50 mg PO BID [facility]; Protocol Last Admin: 07/10/25 08:39 Dose: 50 mg Multivitamins/Vitamin C (Multivitamin Tablet) 1 tab PO DAILY [facility] Last Admin: 07/10/25 08:38 Dose: 1 tab Naloxone HCl (Naloxone Hcl 0.4 Mg/Ml Vial) 0.04 mg IVPUSH Q5M PRN PRN Reason: Excessive sedation or RR < 8 Nicotine Polacrilex (Nicotine Polacrilex 2 Mg Gum) 2 mg BUCCAL Q2H PRN PRN Reason: Nicotine Cravings Nitroglycerin (Nitroglycerin 0.4 Mg Tab.Subl) 0.4 mg SUBLINGUAL Q5MX3 PRN PRN Reason: chest pain Polyethylene Glycol (Polyethylene Glycol 3350 17 Gm Powd.Pack) 17 gm PO DAILY PRN PRN Reason: Constipation Last Admin: 06/22/25 14:56 Dose: 17 gm Sertraline HCl (Sertraline Hcl 100 Mg Tablet) 100 mg PO DAILY [facility] Last Admin: 07/10/25 08:39 Dose: 100 mg Simethicone (Simethicone 80 Mg Tab.Chew) 80 mg PO QIDWMHS [facility] Last Admin: 07/10/25 08:38 Dose: 80 mg Sucralfate (Sucralfate 1 Gm Tablet) 1 gm PO QIDACHS [facility] Last Admin: 07/10/25 08:38 Dose: 1 gm Tamsulosin HCl (Tamsulosin Hcl 0.4 Mg Capsule) 0.8 mg PO BEDTIME [facility] Last Admin: 07/09/25 21:22 Dose: 0.8 mg Trazodone HCl (Trazodone Hcl 50 Mg Tablet) 150 mg PO BEDTIME [facility] Last Admin: 07/09/25 21:23 Dose: 150 mg Trazodone HCl (Trazodone Hcl 50 Mg Tablet) 50 mg PO BEDTIME PRN PRN Reason: Insomnia Venlafaxine HCl (Venlafaxine Hcl Er 37.5 Mg Cap.Er.24h) 37.5 mg PO DAILY [facility] Last Admin: 07/10/25 08:38 Dose: 37.5 mg Vitamin D (Cholecalciferol (Vitamin D3) 25 Mcg Tablet) 50 mcg PO DAILY [facility] Last Admin: 07/10/25 08:38 Dose: 50 mcg Allergies Allergies Allergy/AdvReac Type Severity Reaction Status Date / Time bupropion Allergy Rash Verified 06/09/25 19:07 haloperidol (From Haldol) Allergy Rash Verified 06/09/25 19:07 lactose Allergy Gastrointestinal Verified 06/09/25 19:07 Upset peanut Allergy Anaphylaxis Verified 06/09/25 19:07 ziprasidone Allergy Rash Verified 06/09/25 19:07 Assessment & Plan Assessment & Plan (1) Schizoaffective disorder, bipolar type: Status: Acute Code(s): F25.0 - Schizoaffective disorder, bipolar type (2) PTSD (post-traumatic stress disorder): Status: Acute Code(s): F43.10 - Post-traumatic stress disorder, unspecified (3) Right hip pain: Status: Acute Code(s): M25.551 - Pain in right hip (4) Right knee pain: Status: Acute Code(s): M25.561 - Pain in right knee Plan Mr. Brink is a 59 y/o DWM with documented h/o schizophrenia, bipolar d/o, depression, PTSD, KASSIE, sleep apnea, HTN, CAD, hyponatremia, peripheral neuropathy, 3 NM's s/p CABG, unsteady gait, and type II DM who was brought to the [facility] ED due to AH and SI. He was transferred to [facility] for tx of severe depression, SI and psychotic sx. Plan: Admitted to for safety and stabilization Legal status- CV Admission medical consult ordered 5 minute safety checks due to fall risk. Uses a [employer] Meds- Continue current medications from [facility] list for now: Clozaril 50 mg qhs Clozaril 300 mg qhs for now (grp home list says 'bid at hs' and external med rec shows 300 mg qhs) Effexor XR 75 mg qam *per external med rec, it looks like pt is cross titrating from venlafaxine to sertraline, was previously on 225 mg qd. Will continue cross titration after clarifying when the doses were last adjusted diphenhydramine 50 mg qhs prn for insomna hydroxyzine 50 mg q 8 hrs prn for anxiety sertraline 100 mg qd trazodone 100 mg qhs acetaminophen 975 mg bid ASA 81 mg qam budesonide-formoterol 2 inhalations qd Calcium-Vit D 500mg-5 mcg tabs, 2 tabs po bid docusate 100 mg bid folic acid 1 mg qam ibuprofen 800 mg q 8 hrs prn for pain lactase 9000 unit tablet tid magnesium oxide 400 mg bid metformin 500 mg qam methocarbamol 500 mg q 8 hrs for muscle pain metoprolol 50 mg bid MVI qd nitroglycerin 0.4 mg SL q 5 min prn for chest pain u pt 3 doses simethicone 80 mg 4x/day after meals and at hs sucralfate 1 g 4x/day before meals tamsulosin 0.8 mg qhs Vit B complex qam Vit D3 50 mcg qam Will consider ECT 06/11: Trial GBP 100 mg TID for anxiety and pain. 06/12: DC Gabapentin. Monitor urinary retention/incontinence. He is on Tamsulosin. Continue current management and treatment plan. 06/13: Will refer to ECT due to inadequate response to multiple psychotropic medication trials including: current regimen- clozapine 350 mg qd, sertraline 100 mg qd, venlafaxine (tapering off, was up to 225 mg qd), trazodone 100 mg qhs Prior med trials: Prozac, Cymbalta, Lamictal, Strattera, Zyprexa, Adderall ER, Invega Sustenna, VPA -Will request hospitalist consult for risk stratification for ECT -Taper venlafaxine to 37.5 mg starting tomorrow 06/14: ECT ordered for tomorrow am. NPO except for meds with sips of water after midnight. Medically cleared for ECT today by Alejandra Dangelo NP ECT risk stratification. Patient without previous problems with anesthesia, has previously undergone ECT RCRI 0 points, no further cardiac workup or treatment indicated at this time. Patient denies any past problems with anesthesia. EKG pending, no evidence of ischemic changes Based on stated PMH, HPI, and physical exam, there are no There are no obvious contraindications to the planned procedure. Patient with moderate risk due to advancing age and history of coronary artery disease. 06/15: Completed ECT #1 today (RUL) and tolerated it well. Will continue current tx plan for now, with ECT #2 scheduled for 06/17: Continue current tx plan. ECT #2 scheduled for tomorrow. NPO and ECT orders entered. 06/17: Did well w/ ECT #2. Ordered NPO for ECT #3 on Tuesday 06/19: Laying in bed most of day. Patient continues to report feeling depressed; he reports not sleeping well last night but is not clear for reason. denies SI/HI/VH. +AH telling me I'm going to . Encouraged to leave room. continue tx plan. 06/20: ECT #3 completed today. Endorses ongoing depressed mood without signif improvement. Continue current tx plan. ECT #4 scheduled for 06/22. ECT & NPO orders are entered for 06/22 06/21: Pt is agreeable w/ plan to d/c venlafaxine (seems to have started x- titration to sertraline during one of his inpt admissions). Will titrate standing dose of trazodone to 150 mg qhs. ECT #4 scheduled for tomorrow 06/22: Completed ECT #4. Now off venlafaxine. C/O constipation x 3 days. TW asked pt's nurse to give him MiraLax. Pt denies significant improvement in depression thus far. I explained that it's still early in the ECT series to expect a significant response. Medical necessity for continued inpatient psychiatric treatment: Continuation of ECT series for depression. Unable to engage in outpatient ECT since there are no ECT providing facilities near his [facility] in [place]. Treatment failure with multiple psychotropic trials and previous positive reponse to ECT 06/23: Pt has noticed subtle improvement in his mood since starting ECT. Endorses some confusion and dissociative sx which could be related to ECT and/or discontinuing the venlafaxine. Will re-start venlafaxine 37.5 mg tomorrow am for more gradual taper to reduce discontinuation sx. Will d/c clozapine 25 mg am dose w/ plan to cross titrate to Seroquel, which was reportedly effective in the past for tx of depression and AH, also since pt has multiple SE from the clozapine without any noticeable benefit. Pt is agreeable w/ this tx plan 06/24: Mood gradually improving, brighter affect today. Will continue current med regimen for now and continue cross-titration over the weekend. ECT #5 done today. #6 scheduled for 06/27: Will start lorazepam 0.5 mg bid for tx of potential venlafaxine discontinuation syndrome +/- EPS. Advised pt to stand up slowly to reduce risk of falls. 06/26: Continue current tx plan. ECT #6 scheduled for tomorrow. NPO orders in 06/27: ECT cx'd after pt had an unwitnessed fall and reported hitting the back of his head. CT head showed no acute changes and EKG was unremarkable. Pt reported blacking out prior to falling, which has reportedly happened at his [facility] also. He doesn't think any of the recent med changes contributed to the fall. As a precaution, will hold the Seroquel tonight since it was recently added. TW advised pt to sit up on his bed for a few minutes before standing in the morning and then stand up slowly and pt expressed an understanding and agreed. 06/28: Medically cleared by hospitalist to resume ECT. Input much appreciated. NPO orders in, ECT #6 scheduled for tomorrow. Pt c/o R knee pain after the fall Orthostatics ordered q 8 hrs x 24 hrs by hospitalist R knee xray on 06/28: was negative for any acute changes. signif for mild OA/osteopenia 06/29: Completed ECT #6 today. Mood is gradually improving. Will continue current med regimen. ECT #7 scheduled for Friday, 07/01 06/30: Mood is improving. ECT #7 scheduled for tomorrow. NPO order in. Continue current med regimen 07/01: Tolerated ECT #7 well. Orthostatics done earlier this week were neg. Continue current tx plan. ECT#8 scheduled for Friday, 07/04. NPO orders are in 07/02/25: Patient is in bed after lunch, pleasant and cooperative upon approach. Denies SI/SIB/HI/AVH but stating that he hears a little bit voices telling me I am dying . Reports anxiety and depression 03/03. Reports a little bit constipated but having last bowel movement was yesterday. Encourage fluid intake. Patient reports some shakiness twisting hand as side effect of medications. Reports ECTs helpful. 07/03/25: Patient spent most of the morning in bed, calm, pleasant and cooperative. Continue to report hand shaking and muscle twisting. Denies voices , denies SI/SIB/HI/VH. Report anxiety and depression a 03/03. Patient to have ECT tomorrow. Patient compliant with meds and slept for 8 hours per nursing. start Cogentin 0.5mg BID for possible EPS. 07/04/25: Twitching improved overall w/ addition of Cogentin per pt report. Continue current tx plan. ECT #9 scheduled for 07/06. 07/05: Cancelled ECT for tomorrow 2/2 reports of confusion. Will do MoCA tomorrow. Hold off on increasing Cogentin due to risk of worsening cognitive SE Informed Consent: understands 07/06: c/o R hip pain that he attributed to fall last wk. R hip xray done, seems to be neg but awaiting radiology report. LE venous duplex neg for DVT. MoCA done today- . Will increase cogentin to 1 mg bid per pt request, monitor for cognitive SE. Will schedule next ECT for Saturday 07/07: Switched pt's resucitation status to DNR/DNI per his request. He had paperwork already on file at the [facility], which was faxed here. Will need to lift the DNR/DNI prior to ECT. Continue current tx plan- next ECT scheduled for tomorrow, 07/08 07/08: Did well w/ ECT #9 today. Mood has improved overall and pt is agreeable w/ plan to d/c back to his [facility] late next wk. ECT schedule is full on Friday and next ECT will be scheduled for Fri, 07/13-- will likely be his last ECT here before discharging to [facility] in [place]. Continue curren tx plan 07/09: continue current management and treatment plan. 07/10: Continue ECT. Reason for continued inpatient stay Substantial Risk for: inability to function and rapid decompensation Time Spent With Patient Time: Total time managing care of this patient today ____ minutes.
[2025-07-10 20:00] VITALS: BP 113/63; PULSE 83; RESP 16; TEMP 36.3; O2SAT 98
[2025-07-10 20:43] VITALS: BP 113/63; PULSE 83
[2025-07-11 07:42] VITALS: BP 124/87; PULSE 97; RESP 18; TEMP 36.7; O2SAT 97
[2025-07-11] MEDS: Venlafaxine HCl ER 37.5 MG CAP.ER.24H PO (08:35)
[2025-07-11] MEDS: Aspirin Enteric Coated 81 MG TABLET.DR PO (09:30)
[2025-07-11] MEDS: Calcium + Vitamin D 250 MG TABLET 500 MG PO ×2 (09:31→20:46)
--- NOTE | 2025-07-11 10:32 | P.PNPSI_ITS ---
Subjective Subjective Date of Service: 07/11/25 Reason For Visit: SI Subjective Notes: Conditional Voluntary Interim History: Chart reviewed, case discussed in team Pt had mtg w/ jail at 11 am. SW was present. Per pt and SW, the [facility] staff informed pt that he would be evicted from the jail on 08/24. Pt is upset with the way that the news was delivered but states that he has stayed several months longer than they actually planned for him to stay. The staff reportedly want him to move to an assisted living facility, which will cost more out of pocket for pt than the jail but he hopes it will be a better living situation for him. Pt denies SI. Denies AHVH. Reports good sleep/appetite. He reports that he's had some uncomfortable twitching intermittently from his right hand to upper arm today. Denies any other phys complaints Medication Compliance: Yes Mental Status Exam Mental Status Exam Narrative: Appearance: sitting in chair in milieu. grooming/hygiene fair. good eye contact Attitude: Cooperative. Speech: Fluent and wnl in regard to volume, tone, prosody Motor activity: Calm. no abnormal movements observed Mood: okay Affect: appropriate, brightens up appropriately Thought process: goal directed and without evidence of formal thought disorder Thought content: Denies SI. Perception: does not appear to respond to internal stimuli Cognition grossly intact Insight: fair Judgment: good Diagnostics Vital Signs (24Hr): Vital Signs - 24 hr 07/10/25 20:00 07/10/25 20:43 07/11/25 07:42 Temperature 97.3 F 98.1 F Pulse Rate 83 83 97 Respiratory Rate 16 18 Blood Pressure 113/63 113/63 124/87 Pulse Oximetry 98 97 Oxygen Delivery Method Room Air Room Air BMI result Body Mass Index 27.5 Labs 06/27/25 11:19 07/07/25 10:15 Imaging Radiology Impressions: ITS Impressions Chest X-Ray 06/14/25 16:43 IMPRESSION: No evidence for acute disease in the chest. Electronically signed by: Concepcion Delarosa MD 06/14/2025 04:[address] 06/27/25 10:09 IMPRESSION: No acute fracture, bony calvarium. No acute intracranial hemorrhage. Atherosclerosis disease, intracranial. Electronically signed by: Pino Ponce MD 06/27/2025 10:44 AM EST RP Hip X-Ray 07/06/25 17:03 IMPRESSION: Unremarkable right hip exam. Small radiopaque BB-like metallic density overlying the right hip joint. Electronically signed by: Evan Poon MD 07/07/2025 07:14 AM EST RP Medications Medications Current Medications Acetaminophen (Acetaminophen 325 Mg Tablet) 975 mg PO BID PRN PRN Reason: Pain, Moderate(Pain Scale 4-6) Last Admin: 07/10/25 17:00 Dose: 975 mg Al Hydroxide/Mg Hydroxide (Magnesium Hydrox/Alum Hydrox 30 Ml Oral.Susp) 30 ml PO Q6H PRN PRN Reason: Heartburn/Nausea Last Admin: 06/30/25 12:21 Dose: 30 ml Aspirin (Aspirin Enteric Coated 81 Mg Tablet.Dr) 81 mg PO DAILY [facility] Last Admin: 07/11/25 09:30 Dose: 81 mg Atorvastatin Calcium (Atorvastatin Calcium 40 Mg Tablet) 40 mg PO BEDTIME [facility] Last Admin: 07/10/25 20:44 Dose: 40 mg Benztropine Mesylate (Benztropine Mesylate 1 Mg Tablet) 1 mg PO BID [facility] Last Admin: 07/11/25 09:30 Dose: 1 mg Budesonide (Budesonide 180 Mcg Aer.Pow.Ba) 2 puff INHALE RDAILY [facility] Last Admin: 07/11/25 09:31 Dose: Not Given Calcium Carbonate/Cholecalciferol (Calcium + Vitamin D 250 Mg Tablet) 500 mg PO BID [facility] Last Admin: 07/11/25 09:31 Dose: 500 mg Clozapine (Clozapine 100 Mg Tablet) 300 mg PO BEDTIME [facility] Last Admin: 07/10/25 20:43 Dose: 300 mg Diphenhydramine HCl (Diphenhydramine Hcl 25 Mg Capsule) 50 mg PO BEDTIME PRN PRN Reason: Insomnia Docusate Sodium (Docusate Sodium 100 Mg Capsule) 100 mg PO BID [facility] Last Admin: 07/11/25 09:31 Dose: Not Given Famotidine (Famotidine 20 Mg Tablet) 20 mg PO BID [facility] Last Admin: 07/11/25 08:35 Dose: 20 mg Folic Acid (Folic Acid 1 Mg Tablet) 1 mg PO DAILY [facility] Last Admin: 07/11/25 09:30 Dose: 1 mg Hydroxyzine HCl (Hydroxyzine Hcl 50 Mg Tablet) 50 mg PO Q8H PRN PRN Reason: Anxiety Last Admin: 07/09/25 12:39 Dose: 50 mg Ibuprofen (Ibuprofen 800 Mg Tablet) 800 mg PO Q8H PRN PRN Reason: moderate pain Last Admin: 07/10/25 20:51 Dose: 800 mg Lactase (Lactase Tablet) 3 tab PO TIDWM [facility] Last Admin: 07/11/25 09:30 Dose: 3 tab Magnesium Hydroxide (Milk Of Magnesia 30 Ml Oral.Susp) 30 ml PO DAILY PRN PRN Reason: Constipation Magnesium Oxide (Magnesium Oxide 400 Mg Tablet) 400 mg PO BIDPC [facility] Last Admin: 07/11/25 09:30 Dose: 400 mg Metformin HCl (Metformin Hcl 500 Mg Tablet) 500 mg PO DAILY [facility] Last Admin: 07/11/25 09:31 Dose: 500 mg Methocarbamol (Methocarbamol 500 Mg Tablet) 500 mg PO TID PRN PRN Reason: severe pain Last Admin: 07/11/25 09:39 Dose: 500 mg Metoprolol Tartrate (Metoprolol Tartrate 50 Mg Tablet) 50 mg PO BID [facility]; Protocol Last Admin: 07/11/25 08:35 Dose: 50 mg Multivitamins/Vitamin C (Multivitamin Tablet) 1 tab PO DAILY [facility] Last Admin: 07/11/25 09:30 Dose: 1 tab Naloxone HCl (Naloxone Hcl 0.4 Mg/Ml Vial) 0.04 mg IVPUSH Q5M PRN PRN Reason: Excessive sedation or RR < 8 Nicotine Polacrilex (Nicotine Polacrilex 2 Mg Gum) 2 mg BUCCAL Q2H PRN PRN Reason: Nicotine Cravings Nitroglycerin (Nitroglycerin 0.4 Mg Tab.Subl) 0.4 mg SUBLINGUAL Q5MX3 PRN PRN Reason: chest pain Polyethylene Glycol (Polyethylene Glycol 3350 17 Gm Powd.Pack) 17 gm PO DAILY PRN PRN Reason: Constipation Last Admin: 06/22/25 14:56 Dose: 17 gm Sertraline HCl (Sertraline Hcl 100 Mg Tablet) 100 mg PO DAILY [facility] Last Admin: 07/11/25 09:30 Dose: 100 mg Simethicone (Simethicone 80 Mg Tab.Chew) 80 mg PO QIDWMHS [facility] Last Admin: 07/11/25 09:30 Dose: 80 mg Sucralfate (Sucralfate 1 Gm Tablet) 1 gm PO QIDACHS [facility] Last Admin: 07/11/25 09:30 Dose: 1 gm Tamsulosin HCl (Tamsulosin Hcl 0.4 Mg Capsule) 0.8 mg PO BEDTIME [facility] Last Admin: 07/10/25 20:43 Dose: 0.8 mg Trazodone HCl (Trazodone Hcl 50 Mg Tablet) 150 mg PO BEDTIME [facility] Last Admin: 07/10/25 20:42 Dose: 150 mg Trazodone HCl (Trazodone Hcl 50 Mg Tablet) 50 mg PO BEDTIME PRN PRN Reason: Insomnia Venlafaxine HCl (Venlafaxine Hcl Er 37.5 Mg Cap.Er.24h) 37.5 mg PO DAILY [facility] Last Admin: 07/11/25 08:35 Dose: 37.5 mg Vitamin D (Cholecalciferol (Vitamin D3) 25 Mcg Tablet) 50 mcg PO DAILY [facility] Last Admin: 07/11/25 09:30 Dose: 50 mcg Allergies Allergies Allergy/AdvReac Type Severity Reaction Status Date / Time bupropion Allergy Rash Verified 06/09/25 19:07 haloperidol (From Haldol) Allergy Rash Verified 06/09/25 19:07 lactose Allergy Gastrointestinal Verified 06/09/25 19:07 Upset peanut Allergy Anaphylaxis Verified 06/09/25 19:07 ziprasidone Allergy Rash Verified 06/09/25 19:07 Assessment & Plan Assessment & Plan (1) Schizoaffective disorder, bipolar type: Status: Acute Code(s): F25.0 - Schizoaffective disorder, bipolar type (2) PTSD (post-traumatic stress disorder): Status: Acute Code(s): F43.10 - Post-traumatic stress disorder, unspecified (3) Right hip pain: Status: Acute Code(s): M25.551 - Pain in right hip (4) Right knee pain: Status: Acute Code(s): M25.561 - Pain in right knee Plan Mr. Brink is a 59 y/o DWM with documented h/o schizophrenia, bipolar d/o, depression, PTSD, KASSIE, sleep apnea, HTN, CAD, hyponatremia, peripheral neuropathy, 3 MO's s/p CABG, unsteady gait, and type II DM who was brought to the [facility] ED due to AH and SI. He was transferred to [facility] for tx of severe depression, SI and psychotic sx. Plan: Admitted to [facility] for safety and stabilization Legal status- CV Admission medical consult ordered 5 minute safety checks due to fall risk. Uses a walker Meds- Continue current medications from jail list for now: Clozaril 50 mg qhs Clozaril 300 mg qhs for now (grp home list says 'bid at hs' and external med rec shows 300 mg qhs) Effexor XR 75 mg qam *per external med rec, it looks like pt is cross titrating from venlafaxine to sertraline, was previously on 225 mg qd. Will continue cross titration after clarifying when the doses were last adjusted diphenhydramine 50 mg qhs prn for insomna hydroxyzine 50 mg q 8 hrs prn for anxiety sertraline 100 mg qd trazodone 100 mg qhs acetaminophen 975 mg bid ASA 81 mg qam budesonide-formoterol 2 inhalations qd Calcium-Vit D 500mg-5 mcg tabs, 2 tabs po bid docusate 100 mg bid folic acid 1 mg qam ibuprofen 800 mg q 8 hrs prn for pain lactase 9000 unit tablet tid magnesium oxide 400 mg bid metformin 500 mg qam methocarbamol 500 mg q 8 hrs for muscle pain metoprolol 50 mg bid MVI qd nitroglycerin 0.4 mg SL q 5 min prn for chest pain u pt 3 doses simethicone 80 mg 4x/day after meals and at hs sucralfate 1 g 4x/day before meals tamsulosin 0.8 mg qhs Vit B complex qam Vit D3 50 mcg qam Will consider ECT 06/11: Trial GBP 100 mg TID for anxiety and pain. 06/12: DC Gabapentin. Monitor urinary retention/incontinence. He is on Tamsulosin. Continue current management and treatment plan. 06/13: Will refer to ECT due to inadequate response to multiple psychotropic medication trials including: current regimen- clozapine 350 mg qd, sertraline 100 mg qd, venlafaxine (tapering off, was up to 225 mg qd), trazodone 100 mg qhs Prior med trials: Prozac, Cymbalta, Lamictal, Strattera, Zyprexa, Adderall ER, Invega Sustenna, VPA -Will request hospitalist consult for risk stratification for ECT -Taper venlafaxine to 37.5 mg starting tomorrow 06/14: ECT ordered for tomorrow am. NPO except for meds with sips of water after midnight. Medically cleared for ECT today by Alejandra Dangelo NP ECT risk stratification. Patient without previous problems with anesthesia, has previously undergone ECT RCRI 0 points, no further cardiac workup or treatment indicated at this time. Patient denies any past problems with anesthesia. EKG pending, no evidence of ischemic changes Based on stated PMH, HPI, and physical exam, there are no There are no obvious contraindications to the planned procedure. Patient with moderate risk due to advancing age and history of coronary artery disease. 06/15: Completed ECT #1 today (RUL) and tolerated it well. Will continue current tx plan for now, with ECT #2 scheduled for 06/17: Continue current tx plan. ECT #2 scheduled for tomorrow. NPO and ECT orders entered. 06/17: Did well w/ ECT #2. Ordered NPO for ECT #3 on Tuesday 06/19: Laying in bed most of day. Patient continues to report feeling depressed; he reports not sleeping well last night but is not clear for reason. denies SI/HI/VH. +AH telling me I'm going to . Encouraged to leave room. continue tx plan. 06/20: ECT #3 completed today. Endorses ongoing depressed mood without signif improvement. Continue current tx plan. ECT #4 scheduled for 06/22. ECT & NPO orders are entered for 06/22 06/21: Pt is agreeable w/ plan to d/c venlafaxine (seems to have started x- titration to sertraline during one of his inpt admissions). Will titrate standing dose of trazodone to 150 mg qhs. ECT #4 scheduled for tomorrow 06/22: Completed ECT #4. Now off venlafaxine. C/O constipation x 3 days. TW asked pt's nurse to give him MiraLax. Pt denies significant improvement in depression thus far. I explained that it's still early in the ECT series to expect a significant response. Medical necessity for continued inpatient psychiatric treatment: Continuation of ECT series for depression. Unable to engage in outpatient ECT since there are no ECT providing facilities near his jail in [place]. Treatment failure with multiple psychotropic trials and previous positive reponse to ECT 06/23: Pt has noticed subtle improvement in his mood since starting ECT. Endorses some confusion and dissociative sx which could be related to ECT and/or discontinuing the venlafaxine. Will re-start venlafaxine 37.5 mg tomorrow am for more gradual taper to reduce discontinuation sx. Will d/c clozapine 25 mg am dose w/ plan to cross titrate to Seroquel, which was reportedly effective in the past for tx of depression and AH, also since pt has multiple SE from the clozapine without any noticeable benefit. Pt is agreeable w/ this tx plan 06/24: Mood gradually improving, brighter affect today. Will continue current med regimen for now and continue cross-titration over the weekend. ECT #5 done today. #6 scheduled for 06/27: Will start lorazepam 0.5 mg bid for tx of potential venlafaxine discontinuation syndrome +/- EPS. Advised pt to stand up slowly to reduce risk of falls. 06/26: Continue current tx plan. ECT #6 scheduled for tomorrow. NPO orders in 06/27: ECT cx'd after pt had an unwitnessed fall and reported hitting the back of his head. CT head showed no acute changes and EKG was unremarkable. Pt reported blacking out prior to falling, which has reportedly happened at his jail also. He doesn't think any of the recent med changes contributed to the fall. As a precaution, will hold the Seroquel tonight since it was recently added. TW advised pt to sit up on his bed for a few minutes before standing in the morning and then stand up slowly and pt expressed an understanding and agreed. 06/28: Medically cleared by hospitalist to resume ECT. Input much appreciated. NPO orders in, ECT #6 scheduled for tomorrow. Pt c/o R knee pain after the fall Orthostatics ordered q 8 hrs x 24 hrs by hospitalist R knee xray on 06/28: was negative for any acute changes. signif for mild OA/osteopenia 06/29: Completed ECT #6 today. Mood is gradually improving. Will continue current med regimen. ECT #7 scheduled for Friday, 07/01 06/30: Mood is improving. ECT #7 scheduled for tomorrow. NPO order in. Continue current med regimen 07/01: Tolerated ECT #7 well. Orthostatics done earlier this week were neg. Continue current tx plan. ECT#8 scheduled for Friday, 07/04. NPO orders are in 07/02/25: Patient is in bed after lunch, pleasant and cooperative upon approach. Denies SI/SIB/HI/AVH but stating that he hears a little bit voices telling me I am dying . Reports anxiety and depression 03/03. Reports a little bit constipated but having last bowel movement was yesterday. Encourage fluid intake. Patient reports some shakiness twisting hand as side effect of medications. Reports ECTs helpful. 07/03/25: Patient spent most of the morning in bed, calm, pleasant and cooperative. Continue to report hand shaking and muscle twisting. Denies voices , denies SI/SIB/HI/VH. Report anxiety and depression a 03/03. Patient to have ECT tomorrow. Patient compliant with meds and slept for 8 hours per nursing. start Cogentin 0.5mg BID for possible EPS. 07/04/25: Twitching improved overall w/ addition of Cogentin per pt report. Continue current tx plan. ECT #9 scheduled for 07/06. 07/05: Cancelled ECT for tomorrow 2/2 reports of confusion. Will do MoCA tomorrow. Hold off on increasing Cogentin due to risk of worsening cognitive SE Informed Consent: understands 07/06: c/o R hip pain that he attributed to fall last wk. R hip xray done, seems to be neg but awaiting radiology report. LE venous duplex neg for DVT. MoCA done today- . Will increase cogentin to 1 mg bid per pt request, monitor for cognitive SE. Will schedule next ECT for Saturday 07/07: Switched pt's resucitation status to DNR/DNI per his request. He had paperwork already on file at the jail, which was faxed here. Will need to lift the DNR/DNI prior to ECT. Continue current tx plan- next ECT scheduled for tomorrow, 07/08 07/08: Did well w/ ECT #9 today. Mood has improved overall and pt is agreeable w/ plan to d/c back to his [facility] home late next wk. ECT schedule is full on Friday and next ECT will be scheduled for 07/13-- will likely be his last ECT here before discharging to [facility] in [place]. Continue curren tx plan 07/09: continue current management and treatment plan. 07/10: Continue ECT. 07/11: Pt had mtg w/ jail staff today and will reportedy have to leave the jail by 08/24. He was frustrated but accepting of this news, will likely go to assisted living facility. Will continue current med regimen. didn't have ECT today due to scheduling issue. Next ECT scheduled for 07/13 Reason for continued inpatient stay Substantial Risk for: med/psych decompensation Time Spent With Patient Time: Total time managing care of this patient today ____ minutes.
[2025-07-11 20:00] VITALS: BP 139/69; PULSE 75; RESP 16; TEMP 36.3; O2SAT 97
[2025-07-11 20:47] VITALS: BP 139/69; PULSE 75
[2025-07-12 07:44] VITALS: BP 140/58; PULSE 94; RESP 16; TEMP 36.4; O2SAT 96
[2025-07-12] MEDS: Venlafaxine HCl ER 37.5 MG CAP.ER.24H PO (09:13)
[2025-07-12 09:14] VITALS: BP 112/65; PULSE 107
[2025-07-12] MEDS: Aspirin Enteric Coated 81 MG TABLET.DR PO (09:14)
[2025-07-12] MEDS: Calcium + Vitamin D 250 MG TABLET 500 MG PO ×2 (09:14→21:00)
--- NOTE | 2025-07-12 11:57 | P.PNPSI_ITS ---
Subjective Subjective Date of Service: 07/12/25 Reason For Visit: SI Subjective Notes: Conditional Voluntary Interim History: Chart reviewed. Case discussed in team Pt reports that his mood has improved overall. Feels 'okay' today. He's frustrated w/ the custodial situation but feels safe w/ plan to return there this Friday. Denies SI. Denies AHVH. Pt spent time in the milieu yesterday, which he reports went well. Slept 8 hrs. He is bothered by the twitching in his arms and legs that started after he had open heart surgery. He describes the twitching in his arms as intermittent tingling, pins & needles and numbness and the twitching in his legs as intermittent weakness. Medication Compliance: Yes Mental Status Exam Mental Status Exam Narrative: Appearance: sitting on bed looking at the wall when t/w entered his room. grooming/hygiene fair. good eye contact Attitude: Cooperative. Speech: Fluent and wnl in regard to volume, tone, prosody Motor activity: Calm. No rigidity on exam. Chomping mouth movements- pt is aware, attributes to being edentulous. No other abnormal movements observed Mood: okay Affect: appropriate, brightens up appropriately Thought process: goal directed and without evidence of formal thought disorder Thought content: Denies SI. Perception: Denies AHVH. Cognition grossly intact AO x 3 Insight: generally intact Judgment: good Diagnostics Vital Signs (24Hr): Vital Signs - 24 hr 07/11/25 20:00 07/11/25 20:47 07/12/25 07:44 Temperature 97.3 F 97.5 F Pulse Rate 75 75 94 Respiratory Rate 16 16 Blood Pressure 139/69 139/69 140/58 H Pulse Oximetry 97 96 Oxygen Delivery Method Room Air Room Air 07/12/25 09:14 Temperature Pulse Rate 107 H Respiratory Rate Blood Pressure 112/65 Pulse Oximetry Oxygen Delivery Method BMI result Body Mass Index 27.5 Labs 06/27/25 11:19 07/07/25 10:15 Imaging Radiology Impressions: ITS Impressions Chest X-Ray 06/14/25 16:43 IMPRESSION: No evidence for acute disease in the chest. Electronically signed by: Concepcion Delarosa MD 06/14/2025 04:[address] 06/27/25 10:09 IMPRESSION: No acute fracture, bony calvarium. No acute intracranial hemorrhage. Atherosclerosis disease, intracranial. Electronically signed by: Pino Ponce MD 06/27/2025 10:44 AM EST RP Hip X-Ray 07/06/25 17:03 IMPRESSION: Unremarkable right hip exam. Small radiopaque BB-like metallic density overlying the right hip joint. Electronically signed by: Evan Poon MD 07/07/2025 07:14 AM EST RP Medications Medications Current Medications Acetaminophen (Acetaminophen 325 Mg Tablet) 975 mg PO BID PRN PRN Reason: Pain, Moderate(Pain Scale 4-6) Last Admin: 07/12/25 09:41 Dose: 975 mg Al Hydroxide/Mg Hydroxide (Magnesium Hydrox/Alum Hydrox 30 Ml Oral.Susp) 30 ml PO Q6H PRN PRN Reason: Heartburn/Nausea Last Admin: 06/30/25 12:21 Dose: 30 ml Aspirin (Aspirin Enteric Coated 81 Mg Tablet.Dr) 81 mg PO DAILY [facility] Last Admin: 07/12/25 09:14 Dose: 81 mg Atorvastatin Calcium (Atorvastatin Calcium 40 Mg Tablet) 40 mg PO BEDTIME [facility] Last Admin: 07/11/25 20:46 Dose: 40 mg Benztropine Mesylate (Benztropine Mesylate 1 Mg Tablet) 1 mg PO BID [facility] Last Admin: 07/12/25 09:14 Dose: 1 mg Budesonide (Budesonide 180 Mcg Aer.Pow.Ba) 2 puff INHALE RDAILY [facility] Last Admin: 07/12/25 09:13 Dose: Not Given Calcium Carbonate/Cholecalciferol (Calcium + Vitamin D 250 Mg Tablet) 500 mg PO BID [facility] Last Admin: 07/12/25 09:14 Dose: 500 mg Clozapine (Clozapine 100 Mg Tablet) 300 mg PO BEDTIME [facility] Last Admin: 07/11/25 20:46 Dose: 300 mg Diphenhydramine HCl (Diphenhydramine Hcl 25 Mg Capsule) 50 mg PO BEDTIME PRN PRN Reason: Insomnia Docusate Sodium (Docusate Sodium 100 Mg Capsule) 100 mg PO BID [facility] Last Admin: 07/12/25 09:13 Dose: 100 mg Famotidine (Famotidine 20 Mg Tablet) 20 mg PO BID [facility] Last Admin: 07/12/25 09:14 Dose: 20 mg Folic Acid (Folic Acid 1 Mg Tablet) 1 mg PO DAILY [facility] Last Admin: 07/12/25 09:14 Dose: 1 mg Hydroxyzine HCl (Hydroxyzine Hcl 50 Mg Tablet) 50 mg PO Q8H PRN PRN Reason: Anxiety Last Admin: 07/12/25 09:42 Dose: 50 mg Ibuprofen (Ibuprofen 800 Mg Tablet) 800 mg PO Q8H PRN PRN Reason: moderate pain Last Admin: 07/11/25 20:45 Dose: 800 mg Lactase (Lactase Tablet) 3 tab PO TIDWM [facility] Last Admin: 07/12/25 09:15 Dose: 3 tab Magnesium Hydroxide (Milk Of Magnesia 30 Ml Oral.Susp) 30 ml PO DAILY PRN PRN Reason: Constipation Magnesium Oxide ([facility] 400 Mg Tablet) [facility] Last Admin: 07/12/25 09:13 Dose: 400 mg Metformin HCl (Metformin Hcl 500 Mg Tablet) 500 mg PO DAILY [facility] Last Admin: 07/12/25 09:13 Dose: 500 mg Methocarbamol (Methocarbamol 500 Mg Tablet) 500 mg PO TID PRN PRN Reason: severe pain Last Admin: 07/12/25 10:51 Dose: 500 mg Metoprolol Tartrate (Metoprolol Tartrate 50 Mg Tablet) 50 mg PO BID [facility]; Protocol Last Admin: 07/12/25 09:14 Dose: 50 mg Multivitamins/Vitamin C (Multivitamin Tablet) 1 tab PO DAILY [facility] Last Admin: 07/12/25 09:13 Dose: 1 tab Naloxone HCl (Naloxone Hcl 0.4 Mg/Ml Vial) 0.04 mg IVPUSH Q5M PRN PRN Reason: Excessive sedation or RR < 8 Nicotine Polacrilex (Nicotine Polacrilex 2 Mg Gum) 2 mg BUCCAL Q2H PRN PRN Reason: Nicotine Cravings Nitroglycerin (Nitroglycerin 0.4 Mg Tab.Subl) 0.4 mg SUBLINGUAL Q5MX3 PRN PRN Reason: chest pain Polyethylene Glycol (Polyethylene Glycol 3350 17 Gm Powd.Pack) 17 gm PO DAILY PRN PRN Reason: Constipation Last Admin: 06/22/25 14:56 Dose: 17 gm Sertraline HCl (Sertraline Hcl 100 Mg Tablet) 100 mg PO DAILY [facility] Last Admin: 07/12/25 09:13 Dose: 100 mg Simethicone (Simethicone 80 Mg Tab.Chew) 80 mg PO QIDWMHS [facility] Last Admin: 07/12/25 09:15 Dose: 80 mg Sucralfate (Sucralfate 1 Gm Tablet) 1 gm PO QIDACHS [facility] Last Admin: 07/12/25 09:15 Dose: 1 gm Tamsulosin HCl (Tamsulosin Hcl 0.4 Mg Capsule) 0.8 mg PO BEDTIME [facility] Last Admin: 07/11/25 20:45 Dose: 0.8 mg Trazodone HCl (Trazodone Hcl 50 Mg Tablet) 150 mg PO BEDTIME [facility] Last Admin: 07/11/25 20:45 Dose: 150 mg Trazodone HCl (Trazodone Hcl 50 Mg Tablet) 50 mg PO BEDTIME PRN PRN Reason: Insomnia Venlafaxine HCl (Venlafaxine Hcl Er 37.5 Mg Cap.Er.24h) 37.5 mg PO DAILY [facility] Last Admin: 07/12/25 09:13 Dose: 37.5 mg Vitamin D (Cholecalciferol (Vitamin D3) 25 Mcg Tablet) 50 mcg PO DAILY [facility] Last Admin: 07/12/25 09:13 Dose: 50 mcg Allergies Allergies Allergy/AdvReac Type Severity Reaction Status Date / Time bupropion Allergy Rash Verified 06/09/25 19:07 haloperidol (From Haldol) Allergy Rash Verified 06/09/25 19:07 lactose Allergy Gastrointestinal Verified 06/09/25 19:07 Upset peanut Allergy Anaphylaxis Verified 06/09/25 19:07 ziprasidone Allergy Rash Verified 06/09/25 19:07 Assessment & Plan Assessment & Plan (1) Schizoaffective disorder, bipolar type: Status: Acute Code(s): F25.0 - Schizoaffective disorder, bipolar type (2) PTSD (post-traumatic stress disorder): Status: Acute Code(s): F43.10 - Post-traumatic stress disorder, unspecified (3) Right hip pain: Status: Acute Code(s): M25.551 - Pain in right hip (4) Right knee pain: Status: Acute Code(s): M25.561 - Pain in right knee Plan Mr. Brink is a 59 y/o DWM with documented h/o schizophrenia, bipolar d/o, depression, PTSD, KASSIE, sleep apnea, HTN, CAD, hyponatremia, peripheral neuropathy, 3 MO's s/p CABG, unsteady gait, and type II DM who was brought to the [facility] ED due to AH and SI. He was transferred to [facility] for tx of severe depression, SI and psychotic sx. Plan: Admitted to [facility] for safety and stabilization Legal status- CV Admission medical consult ordered 5 minute safety checks due to fall risk. Uses a walker Meds- Continue current medications from custodial list for now: Clozaril 50 mg qhs Clozaril 300 mg qhs for now (grp home list says 'bid at hs' and external med rec shows 300 mg qhs) Effexor XR 75 mg qam *per external med rec, it looks like pt is cross titrating from venlafaxine to sertraline, was previously on 225 mg qd. Will continue cross titration after clarifying when the doses were last adjusted diphenhydramine 50 mg qhs prn for insomna hydroxyzine 50 mg q 8 hrs prn for anxiety sertraline 100 mg qd trazodone 100 mg qhs acetaminophen 975 mg bid ASA 81 mg qam budesonide-formoterol 2 inhalations qd Calcium-Vit D 500mg-5 mcg tabs, 2 tabs po bid docusate 100 mg bid folic acid 1 mg qam ibuprofen 800 mg q 8 hrs prn for pain lactase 9000 unit tablet tid magnesium oxide 400 mg bid metformin 500 mg qam methocarbamol 500 mg q 8 hrs for muscle pain metoprolol 50 mg bid MVI qd nitroglycerin 0.4 mg SL q 5 min prn for chest pain u pt 3 doses simethicone 80 mg 4x/day after meals and at hs sucralfate 1 g 4x/day before meals tamsulosin 0.8 mg qhs Vit B complex qam Vit D3 50 mcg qam Will consider ECT 06/11: Trial GBP 100 mg TID for anxiety and pain. 06/12: TYE Gabapentin. Monitor urinary retention/incontinence. He is on Tamsulosin. Continue current management and treatment plan. 06/13: Will refer to ECT due to inadequate response to multiple psychotropic medication trials including: current regimen- clozapine 350 mg qd, sertraline 100 mg qd, venlafaxine (tapering off, was up to 225 mg qd), trazodone 100 mg qhs Prior med trials: Prozac, Cymbalta, Lamictal, Strattera, Zyprexa, Adderall ER, Invega Sustenna, VPA -Will request hospitalist consult for risk stratification for ECT -Taper venlafaxine to 37.5 mg starting tomorrow 06/14: ECT ordered for tomorrow am. NPO except for meds with sips of water after midnight. Medically cleared for ECT today by Alejandra Dangelo NP ECT risk stratification. Patient without previous problems with anesthesia, has previously undergone ECT RCRI 0 points, no further cardiac workup or treatment indicated at this time. Patient denies any past problems with anesthesia. EKG pending, no evidence of ischemic changes Based on stated PMH, HPI, and physical exam, there are no There are no obvious contraindications to the planned procedure. Patient with moderate risk due to advancing age and history of coronary artery disease. 06/15: Completed ECT #1 today (RUL) and tolerated it well. Will continue current tx plan for now, with ECT #2 scheduled for 06/17: Continue current tx plan. ECT #2 scheduled for tomorrow. NPO and ECT orders entered. 06/17: Did well w/ ECT #2. Ordered NPO for ECT #3 on Tuesday 06/19: Laying in bed most of day. Patient continues to report feeling depressed; he reports not sleeping well last night but is not clear for reason. denies SI/HI/VH. +AH telling me I'm going to . Encouraged to leave room. continue tx plan. 06/20: ECT #3 completed today. Endorses ongoing depressed mood without signif improvement. Continue current tx plan. ECT #4 scheduled for 06/22. ECT & NPO orders are entered for 06/22 06/21: Pt is agreeable w/ plan to d/c venlafaxine (seems to have started x- titration to sertraline during one of his inpt admissions). Will titrate standing dose of trazodone to 150 mg qhs. ECT #4 scheduled for tomorrow 06/22: Completed ECT #4. Now off venlafaxine. C/O constipation x 3 days. TW asked pt's nurse to give him MiraLax. Pt denies significant improvement in depression thus far. I explained that it's still early in the ECT series to expect a significant response. Medical necessity for continued inpatient psychiatric treatment: Continuation of ECT series for depression. Unable to engage in outpatient ECT since there are no ECT providing facilities near his custodial in [place]. Treatment failure with multiple psychotropic trials and previous positive reponse to ECT 06/23: Pt has noticed subtle improvement in his mood since starting ECT. Endorses some confusion and dissociative sx which could be related to ECT and/or discontinuing the venlafaxine. Will re-start venlafaxine 37.5 mg tomorrow am for more gradual taper to reduce discontinuation sx. Will d/c clozapine 25 mg am dose w/ plan to cross titrate to Seroquel, which was reportedly effective in the past for tx of depression and AH, also since pt has multiple SE from the clozapine without any noticeable benefit. Pt is agreeable w/ this tx plan 06/24: Mood gradually improving, brighter affect today. Will continue current med regimen for now and continue cross-titration over the weekend. ECT #5 done today. #6 scheduled for 06/27: Will start lorazepam 0.5 mg bid for tx of potential venlafaxine discontinuation syndrome +/- EPS. Advised pt to stand up slowly to reduce risk of falls. 06/26: Continue current tx plan. ECT #6 scheduled for tomorrow. NPO orders in 06/27: ECT cx'd after pt had an unwitnessed fall and reported hitting the back of his head. CT head showed no acute changes and EKG was unremarkable. Pt reported blacking out prior to falling, which has reportedly happened at his custodial also. He doesn't think any of the recent med changes contributed to the fall. As a precaution, will hold the Seroquel tonight since it was recently added. TW advised pt to sit up on his bed for a few minutes before standing in the morning and then stand up slowly and pt expressed an understanding and agreed. 06/28: Medically cleared by hospitalist to resume ECT. Input much appreciated. NPO orders in, ECT #6 scheduled for tomorrow. Pt c/o R knee pain after the fall Orthostatics ordered q 8 hrs x 24 hrs by hospitalist R knee xray on 06/28: was negative for any acute changes. signif for mild OA/osteopenia 06/29: Completed ECT #6 today. Mood is gradually improving. Will continue current med regimen. ECT #7 scheduled for Friday, 07/01 06/30: Mood is improving. ECT #7 scheduled for tomorrow. NPO order in. Continue current med regimen 07/01: Tolerated ECT #7 well. Orthostatics done earlier this week were neg. Continue current tx plan. ECT#8 scheduled for Friday, 07/04. NPO orders are in 07/02/25: Patient is in bed after lunch, pleasant and cooperative upon approach. Denies SI/SIB/HI/AVH but stating that he hears a little bit voices telling me I am dying . Reports anxiety and depression 03/03. Reports a little bit constipated but having last bowel movement was yesterday. Encourage fluid intake. Patient reports some shakiness twisting hand as side effect of medications. Reports ECTs helpful. 07/03/25: Patient spent most of the morning in bed, calm, pleasant and cooperative. Continue to report hand shaking and muscle twisting. Denies voices , denies SI/SIB/HI/VH. Report anxiety and depression a 03/03. Patient to have ECT tomorrow. Patient compliant with meds and slept for 8 hours per nursing. start Cogentin 0.5mg BID for possible EPS. 07/04/25: Twitching improved overall w/ addition of Cogentin per pt report. Continue current tx plan. ECT #9 scheduled for 07/06. 07/05: Cancelled ECT for tomorrow 2/2 reports of confusion. Will do MoCA tomorrow. Hold off on increasing Cogentin due to risk of worsening cognitive SE Informed Consent: understands 07/06: c/o R hip pain that he attributed to fall last wk. R hip xray done, seems to be neg but awaiting radiology report. LE venous duplex neg for DVT. MoCA done today- . Will increase cogentin to 1 mg bid per pt request, monitor for cognitive SE. Will schedule next ECT for Saturday 07/07: Switched pt's resucitation status to DNR/DNI per his request. He had paperwork already on file at the custodial, which was faxed here. Will need to lift the DNR/DNI prior to ECT. Continue current tx plan- next ECT scheduled for tomorrow, 07/08 07/08: Did well w/ ECT #9 today. Mood has improved overall and pt is agreeable w/ plan to d/c back to his [facility] home late next wk. ECT schedule is full on Friday and next ECT will be scheduled for Fri, 07/13-- will likely be his last ECT here before discharging to [facility] home in [place]. Continue curren tx plan 07/09: continue current management and treatment plan. 07/10: Continue ECT. 07/11: Pt had mtg w/ custodial staff today and will reportedy have to leave the custodial by 08/24. He was frustrated but accepting of this news, will likely go to assisted living facility. Will continue current med regimen. didn't have ECT today due to scheduling issue. Next ECT scheduled for Fri, 07/13 07/12: Mood has improved overall. ECT#10 scheduled for tomorrow, NPO order is in. Pt clarified that the twitching has been an issue since his open heart surgery and he describes the upper extremity sx as neuropathic pain/intermittent numbness and LE sx as intermittent weakness. Will taper off of benztropine to simplify med regimen since these sx are not related to EPS and start gabapentin 100 mg tid for neuropathic pain. Will dc venlafaxine 37.5 mg. Patient educated on: medication risk/benefits, therapeutic strategies and medical condition Informed Consent: understands Reason for continued inpatient stay Substantial Risk for: med/psych decompensation Time Spent With Patient Time: Total time managing care of this patient today ____ minutes.
[2025-07-12 20:00] VITALS: BP 102/70; PULSE 76; RESP 16; TEMP 36.7; O2SAT 99
[2025-07-12 21:01] VITALS: BP 102/70; PULSE 70
[2025-07-13] VITALS (12 sets, daily range): BP systolic 110–151; BP diastolic 54–84; PULSE 63–86; RESP 11–17; TEMP 36.1–36.8; O2SAT 97–99
--- NOTE | 2025-07-13 05:56 | PC.NURSE ---
lopressor, pepcid given as per physician's communication order. patient is no longer taking venlafaxine
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
--- NOTE | 2025-07-13 08:36 | MHC.SHP ---
Pre-Procedural Eval Section A - 24 Hr Update-Section A only Date of Service: 07/13/25 The patient is an INPATIENT: Yes Changes since office visit: Yes Patient answered all questions; No Cold of Flu in the past 2 weeks, No New Medical Problems and No Changes in Medication The patient has been examined within 24 hours of the surgical procedure. The History & Physical has been completed within 30 days and I have reviewed it.: Yes Section B - Complete if H&P > 30 days Chief Complaint: SI Allergies: Allergies Allergy/AdvReac Type Severity Reaction Status Date / Time bupropion Allergy Rash Verified 06/09/25 19:07 haloperidol (From Haldol) Allergy Rash Verified 06/09/25 19:07 lactose Allergy Gastrointestinal Verified 06/09/25 19:07 Upset peanut Allergy Anaphylaxis Verified 06/09/25 19:07 ziprasidone Allergy Rash Verified 06/09/25 19:07 Plan Diagnosis/Plan: Unchanged I have reviewed the history and physical and performed a pertinent physical examination on my patient. No changes have occurred unless specified. Time Spent With Patient Time: Total time managing care of this patient today ____ minutes.
--- NOTE | 2025-07-13 08:39 | P.CONAN_ITS ---
[facility] Active Problems Active Problems: All Active Problems Right hip pain (Acute) Right knee pain (Acute) PTSD (post-traumatic stress disorder) (Acute) Schizoaffective disorder, bipolar type (Acute) Coronary artery disease (Acute) Past Medical History Functional capacity: independent ambulation Family History Family history of problems with anesthesia: No Surgical History History of Problems with Anesthesia: No Social History Social History Household Members: Other Household Members Other:: residential residents Housing: Other Housing Other:: residential Do you presently have visiting nurse or other home services: Yes ([facility]) Comment: 5 Patient Tobacco Use Status: Former Tobacco user Tobacco use type: Cigarette Cigarettes Per Day: 3 Years Smoked: 43 Smoked in Last 30 Days: Yes e-Cigarette/Vaping Use: Never Used Patient Interested in Nicotine Replacement: No Patient Given Instructions on How to Stop Smoking: Yes Date Education Initiated: 06/09/25 Second Hand Smoke Exposure: No Currently Displaying Signs/Symptoms of Drug Intoxication Withdrawal: No Have you been hit, kicked, punched, or otherwise hurt by someone within the past year? If so, by whom?: No Do you feel safe in your current relationship?: No Current Relationship Is there a partner from a previous relationship who is making you feel unsafe now?: No Are you made to feel afraid or neglected: No Are you DNR?: Yes Advance Directives: No Advance Directives Information Provided: No Advance Directives on File: No Do you have thoughts of harming others: None Do you have a plan to hurt others: No Plan Recently lost weight without trying: No How much weight loss: Not applicable Eating poorly because of decreased appetite: No Nutrition screen score: 0 Nutrition Risks: No Nutritional Risk service: No Sexual orientation: Straight/Heterosexual Meds Allergies Allergy/AdvReac Type Severity Reaction Status Date / Time bupropion Allergy Rash Verified 06/09/25 19:07 haloperidol (From Haldol) Allergy Rash Verified 06/09/25 19:07 lactose Allergy Gastrointestinal Verified 06/09/25 19:07 Upset peanut Allergy Anaphylaxis Verified 06/09/25 19:07 ziprasidone Allergy Rash Verified 06/09/25 19:07 Active Medications: Current Medications Acetaminophen (Acetaminophen 325 Mg Tablet) 975 mg PO BID PRN PRN Reason: Pain, Moderate(Pain Scale 4-6) Last Admin: 07/12/25 15:16 Dose: 975 mg Al Hydroxide/Mg Hydroxide (Magnesium Hydrox/Alum Hydrox 30 Ml Oral.Susp) 30 ml PO Q6H PRN PRN Reason: Heartburn/Nausea Last Admin: 06/30/25 12:21 Dose: 30 ml Aspirin (Aspirin Enteric Coated 81 Mg Tablet.Dr) 81 mg PO DAILY [facility] Last Admin: 07/12/25 09:14 Dose: 81 mg Atorvastatin Calcium (Atorvastatin Calcium 40 Mg Tablet) 40 mg PO BEDTIME [facility] Last Admin: 07/12/25 21:01 Dose: 40 mg Benztropine Mesylate (Benztropine Mesylate 0.5 Mg Tablet) 0.5 mg PO BID [facility] Last Admin: 07/12/25 21:01 Dose: 0.5 mg Budesonide (Budesonide 180 Mcg Aer.Pow.Ba) 2 puff INHALE RDAILY [facility] Last Admin: 07/12/25 09:13 Dose: Not Given Calcium Carbonate/Cholecalciferol (Calcium + Vitamin D 250 Mg Tablet) 500 mg PO BID [facility] Last Admin: 07/12/25 21:00 Dose: 500 mg Clozapine (Clozapine 100 Mg Tablet) 300 mg PO BEDTIME [facility] Last Admin: 07/12/25 21:01 Dose: 300 mg Diphenhydramine HCl (Diphenhydramine Hcl 25 Mg Capsule) 50 mg PO BEDTIME PRN PRN Reason: Insomnia Docusate Sodium (Docusate Sodium 100 Mg Capsule) 100 mg PO BID [facility] Last Admin: 07/12/25 21:02 Dose: 100 mg Famotidine (Famotidine 20 Mg Tablet) 20 mg PO BID [facility] Last Admin: 07/13/25 05:53 Dose: 20 mg Folic Acid (Folic Acid 1 Mg Tablet) 1 mg PO DAILY [facility] Last Admin: 07/12/25 09:14 Dose: 1 mg Gabapentin (Gabapentin 100 Mg Capsule) 100 mg PO TID [facility] Last Admin: 07/12/25 21:01 Dose: 100 mg Hydroxyzine HCl (Hydroxyzine Hcl 50 Mg Tablet) 50 mg PO Q8H PRN PRN Reason: Anxiety Last Admin: 07/12/25 09:42 Dose: 50 mg Lactated Ringer's (Lr) 1,000 mls @ 50 mls/hr IVCONT .Q20H [facility] Ibuprofen (Ibuprofen 800 Mg Tablet) 800 mg PO Q8H PRN PRN Reason: moderate pain Last Admin: 07/12/25 21:19 Dose: 800 mg Lactase (Lactase Tablet) 3 tab PO TIDWM [facility] Last Admin: 07/12/25 17:11 Dose: 3 tab Magnesium Hydroxide (Milk Of Magnesia 30 Ml Oral.Susp) 30 ml PO DAILY PRN PRN Reason: Constipation Magnesium Oxide (Magnesium Oxide 400 Mg Tablet) 400 mg PO BIDPC [facility] Last Admin: 07/12/25 17:11 Dose: 400 mg Metformin HCl (Metformin Hcl 500 Mg Tablet) 500 mg PO DAILY [facility] Last Admin: 07/12/25 09:13 Dose: 500 mg Methocarbamol (Methocarbamol 500 Mg Tablet) 500 mg PO TID PRN PRN Reason: severe pain Last Admin: 07/12/25 16:27 Dose: 500 mg Metoprolol Tartrate (Metoprolol Tartrate 50 Mg Tablet) 50 mg PO BID [facility]; Protocol Last Admin: 07/13/25 05:53 Dose: 50 mg Multivitamins/Vitamin C (Multivitamin Tablet) 1 tab PO DAILY [facility] Last Admin: 07/12/25 09:13 Dose: 1 tab Naloxone HCl (Naloxone Hcl 0.4 Mg/Ml Vial) 0.04 mg IVPUSH Q5M PRN PRN Reason: Excessive sedation or RR < 8 Naloxone HCl (Naloxone Hcl 0.4 Mg/Ml Vial) 0.04 mg IVPUSH Q5M PRN PRN Reason: Excessive sedation or RR < 8 Nicotine Polacrilex (Nicotine Polacrilex 2 Mg Gum) 2 mg BUCCAL Q2H PRN PRN Reason: Nicotine Cravings Nitroglycerin (Nitroglycerin 0.4 Mg Tab.Subl) 0.4 mg SUBLINGUAL Q5MX3 PRN PRN Reason: chest pain Polyethylene Glycol (Polyethylene Glycol 3350 17 Gm Powd.Pack) 17 gm PO DAILY PRN PRN Reason: Constipation Last Admin: 06/22/25 14:56 Dose: 17 gm Sertraline HCl (Sertraline Hcl 100 Mg Tablet) 100 mg PO DAILY [facility] Last Admin: 07/12/25 09:13 Dose: 100 mg Simethicone (Simethicone 80 Mg Tab.Chew) 80 mg PO QIDWMHS [facility] Last Admin: 07/12/25 21:00 Dose: 80 mg Sucralfate (Sucralfate 1 Gm Tablet) 1 gm PO QIDACHS [facility] Last Admin: 07/12/25 21:02 Dose: 1 gm Tamsulosin HCl (Tamsulosin Hcl 0.4 Mg Capsule) 0.8 mg PO BEDTIME [facility] Last Admin: 07/12/25 21:02 Dose: 0.8 mg Trazodone HCl (Trazodone Hcl 50 Mg Tablet) 150 mg PO BEDTIME [facility] Last Admin: 07/12/25 21:00 Dose: 150 mg Trazodone HCl (Trazodone Hcl 50 Mg Tablet) 50 mg PO BEDTIME PRN PRN Reason: Insomnia Vitamin D (Cholecalciferol (Vitamin D3) 25 Mcg Tablet) 50 mcg PO DAILY [facility] Last Admin: 07/12/25 09:13 Dose: 50 mcg Home Medications ?Medication ?Instructions ?Recorded ?Confirmed ?Last Taken ?Type aspirin 81 mg tablet,delayed 81 mg PO DAILY 06/09/25 1 06/08/25 History release atorvastatin 40 mg tablet 40 mg PO BEDTIME cholesterol 06/09/25 06/09/25 06/08/25 History calcium 500 mg (as 2 tab PO BID 06/09/25 Unknown History carbonate)-vitamin D3 5 mcg (200 unit) tablet (Oyster Shell Calcium-Vitamin D3) cholecalciferol (vitamin D3) 50 50 mcg PO DAILY 06/09/25 06/08/25 History mcg (2,000 unit) capsule clozapine 100 mg tablet 300 mg PO BEDTIME 06/09/25 1 06/08/25 History clozapine 50 mg tablet 50 mg PO BEDTIME 06/09/2506/08/25 History dextroamphetamine-amphetamine ER 2 cap PO DAILY 06/09/25 06/08/25 History 10 mg 24hr capsule,extend release docusate sodium 100 mg capsule 100 mg PO BID 06/09/25 06/09/25 06/08/25 History duloxetine 60 mg capsule,delayed 60 mg PO DAILY 06/09/25 06/08/25 History release famotidine 20 mg tablet 20 mg PO BID acid reflux 06/09/25 Unknown History guanfacine 1 mg tablet,extended 1 mg PO DAILY 06/09/25 06/09/25 Unknown History release 24 hr ibuprofen 800 mg tablet 800 mg PO Q8H PRN pain 06/0906/09/25 Unknown History lorazepam 1 mg tablet 1 mg PO BEDTIME PRN insomnia 06/09/25 06/09/25 06/08/25 History metoprolol succinate 25 mg 75 mg PO DAILY 06/09/25 Unknown History tablet,extended release 24 hr multivitamin with folic acid 400 1 tab PO DAILY 06/09/25 06/08/25 History mcg tablet (Daily-Avtar (with folic acid)) sertraline 100 mg tablet 100 mg PO DAILY 06/09/2506/08/25 History sucralfate 1 gram tablet 1 g PO QID 06/09/25 06/09/25 Unknown History tamsulosin 0.4 mg capsule 0.4 mg PO BEDTIME 06/09/25 1 06/03/25 History trazodone 100 mg tablet 100 mg PO BEDTIME 06/09/25 1 06/08/25 History venlafaxine 75 mg capsule,extended 75 mg PO QAM 06/09/25 06/08/25 History release 24 hr vitamin B complex 1 cap PO DAILY 06/09/2505/2506/08/25 History Exam Height,Weight and Vital Signs: Height 6 ft Weight 92.079 kg Last Vital Signs Temp 97 F 07/13/25 07:59 Pulse 73 07/13/25 07:59 Resp 16 07/13/25 07:59 BP 130/60 07/13/25 07:30 Pulse Ox 98 07/13/25 07:59 O2 Del Method Room Air 07/13/25 07:59 O2 Flow Rate 0 07/08/25 16:00 Pertinent Lab Results Pertinent Lab Results: Laboratory Tests 06/10/25 06/14/25 06/14/25 08:07 14:27 17:34 WBC 7.9 RBC 4.55 L Hgb 13.0 L Hct 38.2 L MCV 84.0 MCH 28.6 MCHC 34.0 RDW 13.4 Plt Count 284 MPV 9.2 L Immature Gran % (Auto) 0.3 Neut % (Auto) 68.0 Lymph % (Auto) 21.6 [place] % (Auto) 7.3 Eos % (Auto) 1.9 Baso % (Auto) 0.9 Lymph # (Auto) 1.7 [place] # (Auto) 0.6 Eos # (Auto) 0.2 Baso # (Auto) 0.1 Abs Immat Gran (auto) 0.02 Absolute Neuts (auto) 5.7 5.4 Absolute Nucleated RBC 0.000 Nucleated RBC % (auto) 0.0 Sodium 141 139 Potassium 3.9 4.3 Chloride 108 103 Carbon Dioxide 23 26 Anion Gap 14 14 BUN 8 L 19 H Creatinine 0.94 1.19 Estim Creat Clear Calc 91.7 72.4 Estimated GFR > 60 > 60 Random Glucose 110 135 H Estimat Average Glucose 114 Hemoglobin A1c % 5.6 Calcium 9.5 9.8 Magnesium Total Bilirubin 0.3 0.3 AST 20 22 ALT 27 42 H Alkaline Phosphatase 95 93 Troponin I High Sens < 2.7 Total Protein 7.5 7.6 Albumin 4.7 4.8 Triglycerides 298 H Cholesterol 159 LDL Cholesterol, Calc 73 HDL Cholesterol 27 L TSH 0.86 Free T4 1.01 Urine Color Urine Appearance Urine pH Ur Specific [place] Urine Protein Urine Glucose (UA) Urine Ketones Urine Blood Urine Nitrite Ur Leukocyte Esterase 06/17/25 06/17/25 06/21/25 17:35 17:36 10:40 WBC RBC Hgb Hct MCV MCH MCHC RDW Plt Count MPV Immature Gran % (Auto) Neut % (Auto) Lymph % (Auto) [place] % (Auto) Eos % (Auto) Baso % (Auto) Lymph # (Auto) [place] # (Auto) Eos # (Auto) Baso # (Auto) Abs Immat Gran (auto) Absolute Neuts (auto) 5.5 Absolute Nucleated RBC Nucleated RBC % (auto) Sodium Potassium Chloride Carbon Dioxide Anion Gap BUN Creatinine 1.13 Estim Creat Clear Calc 76.3 Estimated GFR > 60 Random Glucose Estimat Average Glucose Hemoglobin A1c % Calcium Magnesium Total Bilirubin AST ALT Alkaline Phosphatase Troponin I High Sens Total Protein Albumin Triglycerides Cholesterol LDL Cholesterol, Calc HDL Cholesterol TSH Free T4 Urine Color Yellow Urine Appearance Clear Urine pH 7.0 Ur Specific [place] 1.015 Urine Protein Negative Urine Glucose (UA) Negative Urine Ketones Negative Urine Blood Negative Urine Nitrite Negative Ur Leukocyte Esterase Negative 06/24/25 06/27/25 06/27/25 13:01 11:19 11:19 WBC 6.6 RBC 4.80 Hgb 13.7 L Hct 40.9 L MCV 85.2 MCH 28.5 MCHC 33.5 RDW 13.4 Plt Count 248 MPV 10.1 Immature Gran % (Auto) 0.5 H Neut % (Auto) 64.6 Lymph % (Auto) 23.1 [place] % (Auto) 7.3 Eos % (Auto) 3.4 Baso % (Auto) 1.1 Lymph # (Auto) 1.5 [place] # (Auto) 0.5 Eos # (Auto) 0.2 Baso # (Auto) 0.1 Abs Immat Gran (auto) 0.03 Absolute Neuts (auto) 5.6 4.2 Absolute Nucleated RBC 0.000 Nucleated RBC % (auto) 0.0 Sodium 142 Potassium 4.1 Chloride 105 Carbon Dioxide 28 Anion Gap 13 BUN 15 Creatinine 1.12 1.00 Estim Creat Clear Calc 76.9 86.2 Estimated GFR > 60 > 60 Random Glucose 122 H Estimat Average Glucose Hemoglobin A1c % Calcium 9.6 Magnesium 2.3 Total Bilirubin AST ALT Alkaline Phosphatase Troponin I High Sens Cancelled < 2.7 Total Protein Albumin Triglycerides Cholesterol LDL Cholesterol, Calc HDL Cholesterol TSH Free T4 Urine Color Urine Appearance Urine pH Ur Specific [place] Urine Protein Urine Glucose (UA) Urine Ketones Urine Blood Urine Nitrite Ur Leukocyte Esterase 07/07/25 10:15 WBC RBC Hgb Hct MCV MCH MCHC RDW Plt Count MPV Immature Gran % (Auto) Neut % (Auto) Lymph % (Auto) [place] % (Auto) Eos % (Auto) Baso % (Auto) Lymph # (Auto) [place] # (Auto) Eos # (Auto) Baso # (Auto) Abs Immat Gran (auto) Absolute Neuts (auto) 4.6 Absolute Nucleated RBC Nucleated RBC % (auto) Sodium Potassium Chloride Carbon Dioxide Anion Gap BUN Creatinine 1.18 Estim Creat Clear Calc 73.0 Estimated GFR > 60 Random Glucose Estimat Average Glucose Hemoglobin A1c % Calcium Magnesium Total Bilirubin AST ALT Alkaline Phosphatase Troponin I High Sens Total Protein Albumin Triglycerides Cholesterol LDL Cholesterol, Calc HDL Cholesterol TSH Free T4 Urine Color Urine Appearance Urine pH Ur Specific [place] Urine Protein Urine Glucose (UA) Urine Ketones Urine Blood Urine Nitrite Ur Leukocyte Esterase Airway Mallampati Class: II (edentulous) TM Dist: >3cm Neck ROM: Full Heart: rrr Lungs: cta Assessment and Plan Assessment Anesthesia Assessment: Anesthesia Plan Discussed and Chart Reviewed Final Anesthetic Review Family History of Problems with Anesthesia: No History of Problems with Anesthesia: No NPO: Yes ASA Class: III Final Preanesthetic Review: No Changes in Pt Med Stat, Meds/Allgs Chart Reviewed and Consent Obtained/Reviewed Patient Risk: Intermediate Procedure Risk: Intermediate Anesthetic Plan Anesthetic Plan: GA Disposition: Standard PACU
[2025-07-13] MEDS: Aspirin Enteric Coated 81 MG TABLET.DR PO (10:33)
[2025-07-13] MEDS: Calcium + Vitamin D 250 MG TABLET 500 MG PO ×2 (10:34→20:43)
--- NOTE | 2025-07-13 22:39 | HO.ECTPROC ---
ECT Procedure Note Diagnosis/Treatment Date of Service: 07/13/25 Diagnosis: Schizoaffective Disorder Previous ECT Date: 07/08/25 Current Treatment Number: 10 Treatment: Series Interval Clinical Notes: Pt doing better less depressed will return togroup home Time: Total time managing care of this patient today _30___ minutes. ECT Settings Device: THYMATRON DGx Electrode Placement: Right Unilateral Program/Pulse Width: 0.50 Energy Percent: 90 Seizure Duration By EEG (in seconds): 46 Medications Administration General Anesthetic: Etomidate (18) Muscle Relaxant: Succinylcholine (100) Ancillary Medications Anti-emetics: Zofran - Post ECT (4 mg) Cardiovascular Medications: Labetolol (5) Miscillaneous Medications: Propofol (30) Airway Management Airway Management: Bag Mask Ventilation Treatment Recommendations No Changes Recommended: No change Pt Tolerated Procedure w/o Issue: Yes
[2025-07-14 05:28] VITALS: BP 124/81; PULSE 120; RESP 15; TEMP 36.6; O2SAT 97
--- NOTE | 2025-07-14 05:40 | PC.NURSE ---
unwitnessed fall-a door slamming once was heard by staff. as staff responded and were walking down the hallway the call button was push from patient's room/bathroom. bathroom door was closed and patient stated ''I need help, I just fell'' patient was sitting on the floor infront of toilet with legs extended out to the left side of the bathroom. after assessment patient was assisted up. patient reported he was urinating while standing, hios knees buckled and he fell backwards hitting the door with his upper back and head causing the door to slam shut.
--- NOTE | 2025-07-14 05:40 | PM.EVENT ---
Event Note Date of Service: 07/14/25 Event Note: pt has unwitnessed fall in the bathroom. staff heard his door slam shut when he fell backwards onto it. the pt notes that he fell due to chronic leg weakness, no dizziness, CP or SOB prior to fall. now having occipital headache and neck pain. no obvious trauma on exam or step off. ordered head CT and c-spine. neurologically intact. day team to f/u in AM. Time Spent With Patient Time: Total time managing care of this patient today ____ minutes.
--- NOTE | 2025-07-14 05:46 | PC.NURSE ---
fall note continued-patient with c/o neck and headache. fully oriented, pupils equal and reactive, bilateral equal grasps. patient allowed for BP to be taken but could not tolerate a standing BP due to exhibiting grand jerking type movements and knees buckling. Has been seen by hospitalist and imaging ordered. nursing order to delivery supervisor and property assessment monitor notified. patient stated ''I can't even get up and pee at night, how am I going to manage this when I leave?'' encouraged to sit when urinating. patients walker was in bathroom with him.
--- NOTE | 2025-07-14 06:21 | PC.NURSE ---
returned from imaging. still with c/o POWER 05/04. pupils reactive, principal investigator good bilateral hands, fully oriented.
[2025-07-14 07:20] VITALS: BP 104/55; PULSE 82; RESP 16; TEMP 36.2; O2SAT 93
[2025-07-14] MEDS: Calcium + Vitamin D 250 MG TABLET 500 MG PO ×2 (09:00→21:21)
[2025-07-14] MEDS: Aspirin Enteric Coated 81 MG TABLET.DR PO (09:00)
--- NOTE | 2025-07-14 09:17 | HO.PSYCHPN ---
Subjective Subjective Date of Service: 07/14/25 Reason For Visit: SI Subjective Notes: Conditional Voluntary Interim History: Chart reviewed, case discussed with team Pt had an unwitnessed fall early this am when he got up to go to the bathroom. He reports that he used his walker and his legs gave out, which has occurred in the past. He denies that he was dizzy or blacked out. He had a CT head w/o contrast, which was negative for any acute changes. Pt endorses pain in the back of his head from the fall. Denies N/V, sedation, confusion Pt is anxious about returning to the skilled nursing tomorrow. They are helping him transition to assisted living but he's worried about the expense and only having $100 left each month from his social security check. He is hopeful that the assisted living will be more comfortable for him since he doesn't trust the staff at his skilled nursing. Slept 8 hrs Good appetite Denies SI Denies AHVH Endorses ongoing twitching (chronic issue), which is bothersome Medication Compliance: Yes Attending Groups: No Mental Status Exam Mental Status Exam Narrative: Appearance: Pt was sitting on his bed staring at the wall when t/w approached him. fair grooming/hygiene. good eye contact Attitude: Cooperative. Speech: Fluent and wnl in regard to volume, tone, prosody Motor activity: Calm. No tics, tremors or dyskinesias observed Mood: anxious Affect: appropriate, reactive, brightens up appropriately Thought process: goal directed and without evidence of formal thought disorder Thought content: Denies SI. does not endorse violent ideation Perception: Denies AHVH. Cognition grossly intact AO x 3 Insight: generally intact Judgment: good Diagnostics Vital Signs (24Hr): Vital Signs - 24 hr 07/13/25 09:20 07/13/25 09:25 07/13/25 09:40 Temperature 97.3 F Pulse Rate 68 69 65 Respiratory Rate 11 L 12 16 Blood Pressure 151/83 H 147/84 H 141/78 H Pulse Oximetry 98 98 97 Oxygen Delivery Method Nasal Cannula Nasal Cannula Room Air Oxygen Flow Rate 2 2 07/13/25 09:45 07/13/25 10:15 07/13/25 10:15 Temperature 97 F 97.7 F 97.7 F Pulse Rate 65 71 71 Respiratory Rate 13 16 16 Blood Pressure 134/70 128/66 128/66 Pulse Oximetry 97 98 98 Oxygen Delivery Method Room Air Room Air Oxygen Flow Rate 07/13/25 20:00 07/14/25 05:28 07/14/25 07:20 Temperature 98.2 F 97.8 F 97.2 F Pulse Rate 86 120 H 82 Respiratory Rate 16 15 16 Blood Pressure 110/68 124/81 104/55 L Pulse Oximetry 98 97 93 Oxygen Delivery Method Room Air Room Air Oxygen Flow Rate BMI result Body Mass Index 27.5 Labs 06/27/25 11:19 07/07/25 10:15 Imaging Radiology Impressions: ITS Impressions Chest X-Ray 06/14/25 16:43 IMPRESSION: No evidence for acute disease in the chest. Electronically signed by: Concepcion Delarosa MD 06/14/2025 04:54 PM EDT RP Head CT 06/27/25 10:09 IMPRESSION: No acute fracture, bony calvarium. No acute intracranial hemorrhage. Atherosclerosis disease, intracranial. Electronically signed by: Pino Ponce MD 06/27/2025 10:44 AM EST RP Hip X-Ray 07/06/25 17:03 IMPRESSION: Unremarkable right hip exam. Small radiopaque BB-like metallic density overlying the right hip joint. Electronically signed by: Evan Poon MD 07/07/2025 07:14 AM EST RP Cervical Spine CT 07/14/25 05:56 IMPRESSION: Limited examination due to patient motion. Straightening of the normal cervical lordosis. Degenerative changes as described. No definite fracture or subluxation. Electronically signed by: Michael Thomas MD 07/14/2025 07:18 AM EST RP Head CT 07/14/25 05:56 IMPRESSION: Limited by patient's motion artifact. No acute fracture, bony calvarium. No acute intracranial hemorrhage. Atherosclerosis disease, ICAs. Electronically signed by: Pino Ponce MD 07/14/2025 07:15 AM EST RP Medications Medications Current Medications Acetaminophen (Acetaminophen 325 Mg Tablet) 975 mg PO BID PRN PRN Reason: Pain, Moderate(Pain Scale 4-6) Last Admin: 07/14/25 05:25 Dose: 975 mg Al Hydroxide/Mg Hydroxide (Magnesium Hydrox/Alum Hydrox 30 Ml Oral.Susp) 30 ml PO Q6H PRN PRN Reason: Heartburn/Nausea Last Admin: 06/30/25 12:21 Dose: 30 ml Aspirin (Aspirin Enteric Coated 81 Mg Tablet.Dr) 81 mg PO DAILY [facility] Last Admin: 07/14/25 09:00 Dose: 81 mg Atorvastatin Calcium (Atorvastatin Calcium 40 Mg Tablet) 40 mg PO BEDTIME [facility] Last Admin: 07/13/25 20:44 Dose: 40 mg Benztropine Mesylate (Benztropine Mesylate 0.5 Mg Tablet) 0.5 mg PO BID [facility] Last Admin: 07/14/25 09:03 Dose: 0.5 mg Budesonide (Budesonide 180 Mcg Aer.Pow.Ba) 2 puff INHALE RDAILY [facility] Last Admin: 07/14/25 09:05 Dose: Not Given Calcium Carbonate/Cholecalciferol (Calcium + Vitamin D 250 Mg Tablet) 500 mg PO BID [facility] Last Admin: 07/14/25 09:00 Dose: 500 mg Clozapine (Clozapine 100 Mg Tablet) 300 mg PO BEDTIME [facility] Last Admin: 07/13/25 20:43 Dose: 300 mg Diphenhydramine HCl (Diphenhydramine Hcl 25 Mg Capsule) 50 mg PO BEDTIME PRN PRN Reason: Insomnia Docusate Sodium (Docusate Sodium 100 Mg Capsule) 100 mg PO BID [facility] Last Admin: 07/14/25 09:04 Dose: 100 mg Famotidine (Famotidine 20 Mg Tablet) 20 mg PO BID [facility] Last Admin: 07/14/25 09:03 Dose: 20 mg Folic Acid (Folic Acid 1 Mg Tablet) 1 mg PO DAILY [facility] Last Admin: 07/14/25 09:01 Dose: 1 mg Gabapentin (Gabapentin 100 Mg Capsule) 100 mg PO TID [facility] Last Admin: 07/14/25 09:03 Dose: 100 mg Hydroxyzine HCl (Hydroxyzine Hcl 50 Mg Tablet) 50 mg PO Q8H PRN PRN Reason: Anxiety Last Admin: 07/13/25 12:24 Dose: 50 mg Ibuprofen (Ibuprofen 800 Mg Tablet) 800 mg PO Q8H PRN PRN Reason: moderate pain Last Admin: 07/13/25 20:44 Dose: 800 mg Lactase (Lactase Tablet) 3 tab PO TIDWM [facility] Last Admin: 07/14/25 08:59 Dose: 3 tab Magnesium Hydroxide (Milk Of Magnesia 30 Ml Oral.Susp) 30 ml PO DAILY PRN PRN Reason: Constipation Magnesium Oxide (Magnesium Oxide 400 Mg Tablet) [facility] Last Admin: 07/14/25 09:03 Dose: 400 mg Metformin HCl (Metformin Hcl 500 Mg Tablet) 500 mg PO DAILY [facility] Last Admin: 07/14/25 09:03 Dose: 500 mg Methocarbamol (Methocarbamol 500 Mg Tablet) 500 mg PO TID PRN PRN Reason: severe pain Last Admin: 07/13/25 16:30 Dose: 500 mg Metoprolol Tartrate (Metoprolol Tartrate 50 Mg Tablet) 50 mg PO BID [facility]; Protocol Last Admin: 07/13/25 20:44 Dose: 50 mg Multivitamins/Vitamin C (Multivitamin Tablet) 1 tab PO DAILY [facility] Last Admin: 07/14/25 09:00 Dose: 1 tab Naloxone HCl (Naloxone Hcl 0.4 Mg/Ml Vial) 0.04 mg IVPUSH Q5M PRN PRN Reason: Excessive sedation or RR < 8 Naloxone HCl (Naloxone Hcl 0.4 Mg/Ml Vial) 0.04 mg IVPUSH Q5M PRN PRN Reason: Excessive sedation or RR < 8 Nicotine Polacrilex (Nicotine Polacrilex 2 Mg Gum) 2 mg BUCCAL Q2H PRN PRN Reason: Nicotine Cravings Nitroglycerin (Nitroglycerin 0.4 Mg Tab.Subl) 0.4 mg SUBLINGUAL Q5MX3 PRN PRN Reason: chest pain Polyethylene Glycol (Polyethylene Glycol 3350 17 Gm Powd.Pack) 17 gm PO DAILY PRN PRN Reason: Constipation Last Admin: 06/22/25 14:56 Dose: 17 gm Sertraline HCl (Sertraline Hcl 100 Mg Tablet) 100 mg PO DAILY [facility] Last Admin: 07/14/25 08:59 Dose: 100 mg Simethicone (Simethicone 80 Mg Tab.Chew) 80 mg PO QIDWMHS [facility] Last Admin: 07/14/25 09:04 Dose: 80 mg Sucralfate (Sucralfate 1 Gm Tablet) 1 gm PO QIDACHS [facility] Last Admin: 07/14/25 09:02 Dose: 1 gm Tamsulosin HCl (Tamsulosin Hcl 0.4 Mg Capsule) 0.8 mg PO BEDTIME [facility] Last Admin: 07/13/25 20:43 Dose: 0.8 mg Trazodone HCl (Trazodone Hcl 50 Mg Tablet) 150 mg PO BEDTIME [facility] Last Admin: 07/13/25 20:43 Dose: 150 mg Trazodone HCl (Trazodone Hcl 50 Mg Tablet) 50 mg PO BEDTIME PRN PRN Reason: Insomnia Vitamin D (Cholecalciferol (Vitamin D3) 25 Mcg Tablet) 50 mcg PO DAILY [facility] Last Admin: 07/14/25 09:02 Dose: 50 mcg Allergies Allergies Allergy/AdvReac Type Severity Reaction Status Date / Time bupropion Allergy Rash Verified 06/09/25 19:07 haloperidol (From Haldol) Allergy Rash Verified 06/09/25 19:07 lactose Allergy Gastrointestinal Verified 06/09/25 19:07 Upset peanut Allergy Anaphylaxis Verified 06/09/25 19:07 ziprasidone Allergy Rash Verified 06/09/25 19:07 Assessment & Plan Assessment & Plan (1) Schizoaffective disorder, bipolar type: Status: Acute Code(s): F25.0 - Schizoaffective disorder, bipolar type (2) PTSD (post-traumatic stress disorder): Status: Acute Code(s): F43.10 - Post-traumatic stress disorder, unspecified (3) Right hip pain: Status: Acute Code(s): M25.551 - Pain in right hip (4) Right knee pain: Status: Acute Code(s): M25.561 - Pain in right knee Plan Mr. Brink is a 59 y/o DWM with documented h/o schizophrenia, bipolar d/o, depression, PTSD, KASSIE, sleep apnea, HTN, CAD, hyponatremia, peripheral neuropathy, 3 [place]'s s/p CABG, unsteady gait, and type II DM who was brought to the [facility] ED due to AH and SI. He was transferred to [facility] for tx of severe depression, SI and psychotic sx. Plan: Admitted to for safety and stabilization Legal status- CV Admission medical consult ordered 5 minute safety checks due to fall risk. Uses a walker Meds- Continue current medications from skilled nursing list for now: Clozaril 50 mg qhs Clozaril 300 mg qhs for now (grp home list says 'bid at hs' and external med rec shows 300 mg qhs) Effexor XR 75 mg qam *per external med rec, it looks like pt is cross titrating from venlafaxine to sertraline, was previously on 225 mg qd. Will continue cross titration after clarifying when the doses were last adjusted diphenhydramine 50 mg qhs prn for insomna hydroxyzine 50 mg q 8 hrs prn for anxiety sertraline 100 mg qd trazodone 100 mg qhs acetaminophen 975 mg bid ASA 81 mg qam budesonide-formoterol 2 inhalations qd Calcium-Vit D 500mg-5 mcg tabs, 2 tabs po bid docusate 100 mg bid folic acid 1 mg qam ibuprofen 800 mg q 8 hrs prn for pain lactase 9000 unit tablet tid magnesium oxide 400 mg bid metformin 500 mg qam methocarbamol 500 mg q 8 hrs for muscle pain metoprolol 50 mg bid MVI qd nitroglycerin 0.4 mg SL q 5 min prn for chest pain u pt 3 doses simethicone 80 mg 4x/day after meals and at hs sucralfate 1 g 4x/day before meals tamsulosin 0.8 mg qhs Vit B complex qam Vit D3 50 mcg qam Will consider ECT 06/11: Trial GBP 100 mg TID for anxiety and pain. 06/12: TYE Gabapentin. Monitor urinary retention/incontinence. He is on Tamsulosin. Continue current management and treatment plan. 06/13: Will refer to ECT due to inadequate response to multiple psychotropic medication trials including: current regimen- clozapine 350 mg qd, sertraline 100 mg qd, venlafaxine (tapering off, was up to 225 mg qd), trazodone 100 mg qhs Prior med trials: Prozac, Cymbalta, Lamictal, Strattera, Zyprexa, Adderall ER, Invega Sustenna, VPA -Will request hospitalist consult for risk stratification for ECT -Taper venlafaxine to 37.5 mg starting tomorrow 06/14: ECT ordered for tomorrow am. NPO except for meds with sips of water after midnight. Medically cleared for ECT today by Alejandra Dangelo NP ECT risk stratification. Patient without previous problems with anesthesia, has previously undergone ECT RCRI 0 points, no further cardiac workup or treatment indicated at this time. Patient denies any past problems with anesthesia. EKG pending, no evidence of ischemic changes Based on stated PMH, HPI, and physical exam, there are no There are no obvious contraindications to the planned procedure. Patient with moderate risk due to advancing age and history of coronary artery disease. 06/15: Completed ECT #1 today (RUL) and tolerated it well. Will continue current tx plan for now, with ECT #2 scheduled for 06/17: Continue current tx plan. ECT #2 scheduled for tomorrow. NPO and ECT orders entered. 06/17: Did well w/ ECT #2. Ordered NPO for ECT #3 on Tuesday 06/19: Laying in bed most of day. Patient continues to report feeling depressed; he reports not sleeping well last night but is not clear for reason. denies SI/HI/VH. +AH telling me I'm going to . Encouraged to leave room. continue tx plan. 06/20: ECT #3 completed today. Endorses ongoing depressed mood without signif improvement. Continue current tx plan. ECT #4 scheduled for 06/22. ECT & NPO orders are entered for 06/22 06/21: Pt is agreeable w/ plan to d/c venlafaxine (seems to have started x-titration to sertraline during one of his inpt admissions). Will titrate standing dose of trazodone to 150 mg qhs. ECT #4 scheduled for tomorrow 06/22: Completed ECT #4. Now off venlafaxine. C/O constipation x 3 days. TW asked pt's nurse to give him MiraLax. Pt denies significant improvement in depression thus far. I explained that it's still early in the ECT series to expect a significant response. Medical necessity for continued inpatient psychiatric treatment: Continuation of ECT series for depression. Unable to engage in outpatient ECT since there are no ECT providing facilities near his skilled nursing in [place]. Treatment failure with multiple psychotropic trials and previous positive reponse to ECT 06/23: Pt has noticed subtle improvement in his mood since starting ECT. Endorses some confusion and dissociative sx which could be related to ECT and/or discontinuing the venlafaxine. Will re-start venlafaxine 37.5 mg tomorrow am for more gradual taper to reduce discontinuation sx. Will d/c clozapine 25 mg am dose w/ plan to cross titrate to Seroquel, which was reportedly effective in the past for tx of depression and AH, also since pt has multiple SE from the clozapine without any noticeable benefit. Pt is agreeable w/ this tx plan 06/24: Mood gradually improving, brighter affect today. Will continue current med regimen for now and continue cross-titration over the weekend. ECT #5 done today. #6 scheduled for 06/27: Will start lorazepam 0.5 mg bid for tx of potential venlafaxine discontinuation syndrome +/- EPS. Advised pt to stand up slowly to reduce risk of falls. 06/26: Continue current tx plan. ECT #6 scheduled for tomorrow. NPO orders in 06/27: ECT cx'd after pt had an unwitnessed fall and reported hitting the back of his head. CT head showed no acute changes and EKG was unremarkable. Pt reported blacking out prior to falling, which has reportedly happened at his skilled nursing also. He doesn't think any of the recent med changes contributed to the fall. As a precaution, will hold the Seroquel tonight since it was recently added. TW advised pt to sit up on his bed for a few minutes before standing in the morning and then stand up slowly and pt expressed an understanding and agreed. 06/28: Medically cleared by hospitalist to resume ECT. Input much appreciated. NPO orders in, ECT #6 scheduled for tomorrow. Pt c/o R knee pain after the fall Orthostatics ordered q 8 hrs x 24 hrs by hospitalist R knee xray on 06/28: was negative for any acute changes. signif for mild OA/osteopenia 06/29: Completed ECT #6 today. Mood is gradually improving. Will continue current med regimen. ECT #7 scheduled for 07/01: Mood is improving. ECT #7 scheduled for tomorrow. NPO order in. Continue current med regimen 07/01: Tolerated ECT #7 well. Orthostatics done earlier this week were neg. Continue current tx plan. ECT#8 scheduled for Friday, 07/04. NPO orders are in 07/02/25: Patient is in bed after lunch, pleasant and cooperative upon approach. Denies SI/SIB/HI/AVH but stating that he hears a little bit voices telling me I am dying . Reports anxiety and depression 03/03. Reports a little bit constipated but having last bowel movement was yesterday. Encourage fluid intake. Patient reports some shakiness twisting hand as side effect of medications. Reports ECTs helpful. 07/03/25: Patient spent most of the morning in bed, calm, pleasant and cooperative. Continue to report hand shaking and muscle twisting. Denies voices , denies SI/SIB/HI/VH. Report anxiety and depression a 03/03. Patient to have ECT tomorrow. Patient compliant with meds and slept for 8 hours per nursing. start Cogentin 0.5mg BID for possible EPS. 07/04/25: Twitching improved overall w/ addition of Cogentin per pt report. Continue current tx plan. ECT #9 scheduled for Fri, 07/06. 07/05: Cancelled ECT for tomorrow 2/2 reports of confusion. Will do MoCA tomorrow. Hold off on increasing Cogentin due to risk of worsening cognitive SE Informed Consent: understands 07/06: c/o R hip pain that he attributed to fall last wk. R hip xray done, seems to be neg but awaiting radiology report. LE venous duplex neg for DVT. MoCA done today- . Will increase cogentin to 1 mg bid per pt request, monitor for cognitive SE. Will schedule next ECT for Saturday 07/07: Switched pt's resucitation status to DNR/DNI per his request. He had paperwork already on file at the skilled nursing, which was faxed here. Will need to lift the DNR/DNI prior to ECT. Continue current tx plan- next ECT scheduled for tomorrow, 07/08 07/08: Did well w/ ECT #9 today. Mood has improved overall and pt is agreeable w/ plan to d/c back to his [facility] home late next wk. ECT schedule is full on Friday and next ECT will be scheduled for Fri, 07/13-- will likely be his last ECT here before discharging to [facility] home in [place]. Continue curren tx plan 07/09: continue current management and treatment plan. 07/10: Continue ECT. 07/11: Pt had mtg w/ skilled nursing staff today and will reportedy have to leave the skilled nursing by 08/24. He was frustrated but accepting of this news, will likely go to assisted living facility. Will continue current med regimen. didn't have ECT today due to scheduling issue. Next ECT scheduled for Fri, 07/13 07/12: Mood has improved overall. ECT#10 scheduled for tomorrow, NPO order is in. Pt clarified that the twitching has been an issue since his open heart surgery and he describes the upper extremity sx as neuropathic pain/intermittent numbness and LE sx as intermittent weakness. Will taper off of benztropine to simplify med regimen since these sx are not related to EPS and start gabapentin 100 mg tid for neuropathic pain. Will dc venlafaxine 37.5 mg. 07/13: Completed 10th & final ECT today. Will d/c to skilled nursing on Friday. Continue current tx plan. send scripts to [facility] 07/14: D/C benztropine. Increase gabapentin to 200 mg tid 07/15: Pt had an unwitnessed fall and reported hitting the back of his head. Denied dizziness, stated that his legs gave out. This has occurred multiple times in the past. He plans to f/u with his PCP after d/c, which his skilled nursing can arrange for him. CT head neg for any acute changes. He will be d/c'd to his skilled nursing tomorrow with a wheelchair van. Patient educated on: therapeutic strategies and medical condition Reason for continued inpatient stay Substantial Risk for: stable for discharge Time Spent With Patient Time: Total time managing care of this patient today ____ minutes.
[2025-07-14 09:20] VITALS: BP 131/85; PULSE 91
--- NOTE | 2025-07-14 13:07 | MHC.CLN ---
kitchen alerted this instructional writer to lactose allergy pt does not have allergy to lactose. Pt is lactose intolerant and causes GI upset. will remove lactose allergy and change diet to lactose controlled
[2025-07-14 20:00] VITALS: BP 107/70; PULSE 87; RESP 16; TEMP 36.4; O2SAT 97
[2025-07-14 21:22] VITALS: BP 107/70; PULSE 87
[2025-07-15 07:41] VITALS: BP 122/58; PULSE 83; RESP 20; TEMP 36.1; O2SAT 96
[2025-07-15 07:54] LABS: Neut%MD 54.8 %; WBCANC 5.9 X10*3/uL
[2025-07-15 08:02] LABS: Creatinine Clr Calc Pharmacy 84.5; Estimated Glomerular Filt Rate > 60
[2025-07-15] MEDS: Aspirin Enteric Coated 81 MG TABLET.DR PO (08:33)
[2025-07-15] MEDS: Calcium + Vitamin D 250 MG TABLET 500 MG PO (08:34)
--- NOTE | 2025-07-15 16:05 | PM.PSYDC ---
DS: Providers Provider Date of admission: 06/09/25 18:19 Date of discharge: 07/15/25 Primary care physician: Lisa Physician Attending physician on admission: Maye Byers Attending physician on discharge: Maye Byers DS: Diagnosis Discharge Diagnosis (1) Schizoaffective disorder, bipolar type: Status: Acute (2) PTSD (post-traumatic stress disorder): Status: Acute (3) Right hip pain: Status: Acute (4) Right knee pain: Status: Acute DS: Medications Discharge Medications Home Medications: Home Medications ?Medication ?Instructions ?Recorded ?Confirmed aspirin 81 mg tablet,delayed 81 mg PO DAILY 06/09/25 06/09/25 release cholecalciferol (vitamin D3) 50 50 mcg PO DAILY 06/09/25 06/09/25 mcg (2,000 unit) capsule multivitamin with folic acid 400 1 tab PO DAILY 06/09/25 06/09/25 mcg tablet (Daily-Avtar (with folic acid)) vitamin B complex 1 cap PO DAILY 06/09/25 06/09/25 Previous Rx's ?Medication ?Instructions ?Recorded acetaminophen 325 mg tablet 975 mg (3 x 325 mg) PO BID PRN 07/15/25 Pain, Moderate(Pain Scale 4-6) 30 days #120 tabs atorvastatin 40 mg tablet 40 mg PO BEDTIME 30 days #30 tabs 07/15/25 calcium 250 mg (as 2 tab PO BID 30 days #120 tabs 07/15/25 carbonate)-vitamin D3 3.125 mcg (125 unit) tablet clozapine 100 mg tablet 300 mg (3 x 100 mg) PO BEDTIME 30 07/15/25 days #90 tabs docusate sodium 100 mg capsule 100 mg PO BID 30 days #60 caps 07/15/25 famotidine 20 mg tablet 20 mg PO BID 30 days #60 tabs 07/15/25 gabapentin 100 mg capsule 200 mg (2 x 100 mg) PO TID 30 days 07/15/25 #180 caps hydroxyzine HCl 50 mg tablet 50 mg PO DAILY PRN Anxiety 30 days 07/15/25 #30 tabs ibuprofen 800 mg tablet 800 mg PO Q8H PRN moderate pain 30 07/15/25 days #90 tabs lactase 3,000 unit tablet 3,000 unit PO TIDWM 30 days #90 07/15/25 (Dairy-Aid) tabs magnesium oxide 400 mg (241.3 mg 400 mg PO BIDPC 30 days #60 tabs 07/15/25 magnesium) tablet metformin 500 mg tablet 500 mg PO DAILY 30 days #30 tabs 07/15/25 metoprolol tartrate 50 mg tablet 50 mg PO BID 30 days #60 tabs 07/15/25 sertraline 100 mg tablet 100 mg PO DAILY 30 days #30 tabs 07/15/25 simethicone 80 mg chewable tablet 80 mg PO QIDWMHS 30 days #120 tabs 07/15/25 sucralfate 1 gram tablet 1 g PO QIDACHS 30 days #120 tabs 07/15/25 tamsulosin 0.4 mg capsule 0.8 mg (2 x 0.4 mg) PO BEDTIME 30 07/15/25 days #60 caps trazodone 50 mg tablet 150 mg (3 x 50 mg) PO BEDTIME 30 07/15/25 days #90 tabs Data Imaging Diagnostic Imaging Impressions Chest X-Ray 06/14/25 16:43 IMPRESSION: No evidence for acute disease in the chest. Electronically signed by: Concepcion Delarosa MD 06/14/2025 04:54 PM EDT RP Head CT 06/27/25 10:09 IMPRESSION: No acute fracture, bony calvarium. No acute intracranial hemorrhage. Atherosclerosis disease, intracranial. Electronically signed by: Pino Ponce MD 06/27/2025 10:44 AM EST RP Hip X-Ray 07/06/25 17:03 IMPRESSION: Unremarkable right hip exam. Small radiopaque BB-like metallic density overlying the right hip joint. Electronically signed by: Evan Poon MD 07/07/2025 07:14 AM EST RP Cervical Spine CT 07/14/25 05:56 IMPRESSION: Limited examination due to patient motion. Straightening of the normal cervical lordosis. Degenerative changes as described. No definite fracture or subluxation. Electronically signed by: Michael Thomas MD 07/14/2025 07:18 AM EST RP Head CT 07/14/25 05:56 IMPRESSION: Limited by patient's motion artifact. No acute fracture, bony calvarium. No acute intracranial hemorrhage. Atherosclerosis disease, ICAs. Electronically signed by: Pino Ponce MD 07/14/2025 07:15 AM EST DS: Summary Hospital Course Hospital Course: Mr. Brink is a 59 y/o DWM with documented h/o schizophrenia, bipolar d/o, PTSD, KASSIE, sleep apnea, HTN, CAD, hyponatremia, peripheral neuropathy, 3 NV's s/p CABG, unsteady gait, and type II DM who was brought to the [facility] ED due to AH and SI. He was transferred to [facility] for tx of severe depression, SI and psychotic sx. CT head w/o contrast done at [facility] on 06/08/25- No acute intracranial abnormality. Small mucous retention cyst or polyp in R maxillary sinus, otherwise wnl. Labs at [facility] significant for mild hyponatremia (NA+ =134). BMP otherwise essentially wnl. Lipase and CBC wnl. 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 He hasn't been able to work since then and is on disability. He has had R ankle pain since having surgery 6 months ago. Initially took oxycodone, which didn't help. Just taking Tylenol, which isn't helping. He resides at a intermediate and has a visiting nurse who comes 2x/day. He told his nurse that he felt unsafe and she called EMS. He reports that he had called EMS due to feeling unsafe multiple times. He reports having several psychiatric admissions in the past 10 yrs, most recently at [facility] ~1 month ago. He did ECT years ago, which was helpful but he did have some memory impairment. He would consider trying ECT again. He reports taking his medications consistently and has a VNA dispense his meds 2x/day. He doesn't know what medications he takes. Psychiatric ROS: Endorses depressed mood, SI without plan/intent, anhedonia, insomnia, low appetite, feelings of hopelessness/helplessness Endorses AH of a voice telling him I'm going to . Denies CAH to harm self/others. Denies VH. H/O delusions and paranoia Denies h/o violent ideation or violence Endorses flashbacks, nightmares, hypervigilance, sleep disturbance, persistent low mood, intrusive memories of traumatic events Worries a lot about his health Denies recent episodes of mary ann/hypomania Pt was started on the medications listed on the med list from [facility] last night, which included duloxetine, venlafaxine, sertraline, Adderall and clozapine. This scientific writer left a vm with pt's visiting nurse, outpatient psychiatrist to clarify his med list and spoke w/ his [facility] home energy auditor today, who faxed the list. Current Medication List (faxed from intermediate today) Clozaril 50 mg qhs Clozaril 300 mg 2x a day hs *Per external med rec, it looks like pt was rx'd 300 mg just at night Effexor XR 75 mg qam *per external med rec, it looks like pt is cross titrating from venlafaxine to sertraline, was previously on 225 mg qd diphenhydramine 50 mg qhs prn for insomna hydroxyzine 50 mg q 8 hrs prnfor anxiety sertraline 100 mg qd trazodone 100 mg qhs acetaminophen 975 mg bid ASA 81 mg qam budesonide-formoterol 2 inhalations qd Calcium-Vit D 500mg-5 mcg tabs, 2 tabs po bid docusate 100 mg bid folic acid 1 mg qam ibuprofen 800 mg q 8 hrs prn for pain lactase 9000 unit tablet tid magnesium oxide 400 mg bid metformin 500 mg qam methocarbamol 500 mg q 8 hrs for muscle pain metoprolol 50 mg bid MVI qd nitroglycerin 0.4 mg SL q 5 min prn for chest pain u pt 3 doses simethicone 80 mg 4x/day after meals and at hs sucralfate 1 g 4x/day before meals tamsulosin 0.8 mg qhs Vit B complex qam Vit D3 50 mcg qam Past Psychiatric History: Outpatient psychiatrist: Arsen Wall ([phone]) No current tx H/O multiple inpt psychiatric admissions in past 10 yrs, most recently at [facility] ~1 month ago H/O 1 suicide attempt by hanging ~10 yrs ago. His brother found him. Denies h/o violence or non-suicidal self harming behaviors ECT series years ago was helpful, can't recall where it was done. Had some memory impairment Pt doesn't know what meds he tried in the past According to his allergy list- bupropion, haldol and ziprasidone caused a rash Per Crisis Eval- pt has taken the following- Strattera 60 mg qd Klonopin 1 mg tid prn Depakote ER 500 mg Lunesta 2 mg qhs Prozac 20 mg qd Lamictal 25 mg qd Zyprexa 20 mg qd Invega Sustenna sertraline 200 mg qd trazodone 100 mg qd Cymbalta 60 mg qd Cogentin 0.5 mg bid Vistaril 50 mg q 6 hrs prn melatonin 3 mg qhs Adderall ER 20 mg qam lorazepam 1 mg qhs prn for anxiety venlafaxine ER 75 mg qd sertraline 100 mg qd duloxetine 60 mg qd trazodone 100 mg qhs guanfacine ER 1 mg qd This scientific writer spoke with pt's outpatient psychiatric provider. . She reports that pt has been in the hospital more than out of the hospital lately and his medications keep getting adjusted but nothing makes a difference with the depressive sx and medical worries. She was supportive of pursuing ECT and making any other med changes that t/w feels are appropriate. Initial Treatment Plan: Admitted to [facility] for safety and stabilization Legal status- CV 5 minute safety checks due to fall risk. Uses a walker Consider ECT Meds- Continue current medications from intermediate list for now: Clozaril 50 mg qhs Clozaril 300 mg qhs for now (grp home list says 'bid at hs' and external med rec shows 300 mg qhs) Effexor XR 75 mg qam *per external med rec, it looks like pt is cross titrating from venlafaxine to sertraline, was previously on 225 mg qd. diphenhydramine 50 mg qhs prn for insomna hydroxyzine 50 mg q 8 hrs prn for anxiety sertraline 100 mg qd trazodone 100 mg qhs acetaminophen 975 mg bid ASA 81 mg qam budesonide-formoterol 2 inhalations qd Calcium-Vit D 500mg-5 mcg tabs, 2 tabs po bid docusate 100 mg bid folic acid 1 mg qam ibuprofen 800 mg q 8 hrs prn for pain lactase 9000 unit tablet tid magnesium oxide 400 mg bid metformin 500 mg qam methocarbamol 500 mg q 8 hrs for muscle pain metoprolol 50 mg bid MVI qd nitroglycerin 0.4 mg SL q 5 min prn for chest pain u pt 3 doses simethicone 80 mg 4x/day after meals and at hs sucralfate 1 g 4x/day before meals tamsulosin 0.8 mg qhs Vit B complex qam Vit D3 50 mcg qam 06/11: Trial gabpentin 100 mg TID for anxiety and pain. 06/12: Gabapentin discontinued due to episode of dizziness. 06/13: Agreed on plan to start ECT 06/14: Medically cleared for ECT today by Alejandra Dangelo NP. Venlafaxine tapered to 37.5 mg qd 06/15: Completed ECT #1 today (right unilateral) and tolerated it well. Will continue current tx plan for now, with ECT #2 scheduled for Fri, 06/17 06/17: Did well w/ ECT #2. 06/19: Laying in bed most of day. Patient continues to report feeling depressed; he reports not sleeping well last night but is not clear for reason. denies SI/HI/VH. +AH telling me I'm going to . Encouraged to leave room. continue tx plan. He has been spending most of his time in bed since is admission.. 06/20: ECT #3 completed today. Endorses ongoing depressed mood without signif improvement. 06/21: Pt is agreeable w/ plan to d/c venlafaxine. Will titrate standing dose of trazodone to 150 mg qhs due to c/o insomnia. 06/22: Completed ECT #4. Now off venlafaxine. C/O constipation x 3 days. Received MiraLax. 06/23: Pt has noticed subtle improvement in his mood since starting ECT. Endorses some confusion and dissociative sx which could be related to ECT and/or discontinuing the venlafaxine. Will re-start venlafaxine 37.5 mg tomorrow am for more gradual taper to reduce discontinuation sx. Will d/c clozapine 25 mg am dose w/ plan to cross titrate to Seroquel, which was reportedly effective in the past for tx of depression and AH, also since pt has multiple SE from the clozapine without any noticeable benefit. Pt is agreeable w/ this tx plan 06/24: Mood gradually improving, brighter affect today. Will continue current med regimen for now and continue cross-titration over the weekend. ECT #5 done today. 06/25: Will start lorazepam 0.5 mg bid for tx of potential venlafaxine discontinuation syndrome +/- EPS. Advised pt to stand up slowly to reduce risk of falls. 06/27: ECT cancelled after pt had an unwitnessed fall and reported hitting the back of his head. CT head showed no acute changes and EKG was unremarkable. Pt reported blacking out prior to falling, which has reportedly happened at his intermediate also. He doesn't think any of the recent med changes contributed to the fall. As a precaution, will hold the Seroquel tonight since it was recently added. TW advised pt to sit up on his bed for a few minutes before standing in the morning and then stand up slowly and pt expressed an understanding and agreed. 06/28: Medically cleared by hospitalist to resume ECT. Pt c/o R knee pain after the fall R knee xray on 06/28: was negative for any acute changes. signif for mild OA/osteopenia 06/29: Completed ECT #6 today. Mood is gradually improving. 07/01: Tolerated ECT #7 well. Orthostatics done earlier this week were neg. 07/02/25: Patient is in bed after lunch, pleasant and cooperative upon approach. Denies SI/SIB/HI/AVH but stating that he hears a little bit voices telling me I am dying . Reports anxiety and depression 03/03. Reports a little bit constipated but having last bowel movement was yesterday. Encourage fluid intake. Patient reports some shakiness twisting hand as side effect of medications. Reports ECTs helpful. 07/03/25: Patient spent most of the morning in bed, calm, pleasant and cooperative. Continue to report hand shaking and muscle twisting. Denies voices , denies SI/SIB/HI/VH. Report anxiety and depression a 03/03. Patient to have ECT tomorrow. Patient compliant with meds and slept for 8 hours per nursing. start Cogentin 0.5mg BID for possible EPS. 07/04/25: Twitching improved overall w/ addition of Cogentin per pt report. 07/05: Cancelled ECT for tomorrow due to reports of confusion. Hold off on increasing Cogentin due to risk of worsening cognitive SE Informed Consent: understands 07/06: c/o R hip pain that he attributed to fall last wk. Hip rxray neg for any acute changes. LE ultrasound neg for DVT. MoCA done today- . Will increase cogentin to 1 mg bid per pt request, monitor for cognitive SE. 07/07: Switched pt's resucitation status to DNR/DNI per his request. He had paperwork already on file at the intermediate, which was faxed here. Will need to lift the DNR/DNI prior to ECT. C 07/08: Did well w/ ECT #9 today. Mood has improved overall and pt is agreeable w/ plan to d/c back to his grp home late next wk. 07/11: Pt had mtg w/ intermediate staff today and will reportedy have to leave the intermediate by 08/24. He was frustrated but accepting of this news, will likely go to assisted living facility. 07/12: MPt clarified that the twitching has been an issue since his open heart surgery and he describes the upper extremity sx as neuropathic pain/intermittent numbness and LE sx as intermittent weakness. Will taper off of benztropine to simplify med regimen since these symptoms are not related to EPS and re-trial gabapentin 100 mg tid for neuropathic pain. Will dc venlafaxine 37.5 mg. 07/13: Completed 10th & final ECT today. Will d/c to intermediate on Friday. 07/14: D/C benztropine. Increase gabapentin to 200 mg tid 07/15: Pt had an unwitnessed fall and reported hitting the back of his head. Denied dizziness, stated that his legs gave out. This has occurred multiple times in the past. He plans to f/u with his PCP after d/c, which his intermediate can arrange for him. CT head neg for any acute changes. 07/16: Pt's mood has improved overall. He denies SI/violent ideation, AH/VH. His sleep has improved and he's had a good appetite/po intake throughout his admission. He has been more visible in the milieu in the past week. He has not had any behavioral issues and has maintained safe behavior. Time Spent with Patient Time attestation: Total time managing care of this patient today ____ minutes. Discharge Plan Discharge Anticipated Discharge Date/Time: 07/15/25 11:00 Patient Disposition: Home, Self-Care Discharge Diagnosis: Schizoaffective disorder, bipolar type PTSD Referrals: Jeannine Dewitt MD [Other] - 07/20/25 3:30 pm Referral Note: 07-11-25 Your follow up appt has been scheduled with your primary care providers office for 07-20-25 @ 3:30pm Arsen Wall ([facility] Psychiatrist) [Other] - 07/19/25 6:00 pm Referral Note: telehealth appointment Discharge Medications: New tamsulosin 0.4 mg Capsule 0.8 mg PO BEDTIME 30 Days Qty: 60 0RF atorvastatin 40 mg Tablet 40 mg PO BEDTIME 30 Days Qty: 30 0RF metoprolol tartrate 50 mg Tablet 50 mg PO BID 30 Days Qty: 60 0RF Protocol: Hold for SBP/HR < HOLD for SBP < : 90 HOLD for HR < : 60 acetaminophen 325 mg Tablet 975 mg PO BID PRN (Reason: Pain, Moderate(Pain Scale 4-6)) 30 Days Qty: 120 0RF clozapine 100 mg Tablet 300 mg PO BEDTIME 30 Days Qty: 90 0RF gabapentin 100 mg Capsule 200 mg PO TID 30 Days Qty: 180 0RF hydroxyzine HCl 50 mg Tablet 50 mg PO DAILY PRN (Reason: Anxiety) 30 Days Qty: 30 0RF ibuprofen 800 mg Tablet 800 mg PO Q8H PRN (Reason: moderate pain) 30 Days Qty: 90 0RF sertraline 100 mg Tablet 100 mg PO DAILY 30 Days Qty: 30 0RF trazodone 50 mg Tablet 150 mg PO BEDTIME 30 Days Qty: 90 0RF calcium carbonate-vitamin D3 250 mg-3.125 mcg (125 unit) Tablet 2 tab PO BID 30 Days Qty: 120 0RF docusate sodium 100 mg Capsule 100 mg PO BID 30 Days Qty: 60 0RF famotidine 20 mg Tablet 20 mg PO BID 30 Days Qty: 60 0RF lactase [Dairy-Aid] 3,000 unit Tablet 3,000 unit PO TIDWM 30 Days Qty: 90 0RF magnesium oxide 400 mg (241.3 mg magnesium) Tablet 400 mg PO BIDPC 30 Days Qty: 60 0RF simethicone 80 mg Tablet,Chewable 80 mg PO QIDWMHS 30 Days Qty: 120 0RF sucralfate 1 gram Tablet 1 g PO QIDACHS 30 Days Qty: 120 0RF metformin 500 mg Tablet 500 mg PO DAILY 30 Days Qty: 30 0RF Continued aspirin 81 mg tablet,delayed release (DR/EC) 81 mg PO DAILY vitamin B complex Capsule 1 cap PO DAILY cholecalciferol (vitamin D3) 50 mcg (2,000 unit) capsule 50 mcg PO DAILY multivitamin with folic acid [Daily-Avtar (with folic acid)] 400 mcg tablet 1 tab PO DAILY Discontinued atorvastatin 40 mg tablet 40 mg PO BEDTIME venlafaxine 75 mg capsule,extended release 24hr 75 mg PO QAM ibuprofen 800 mg tablet 800 mg PO Q8H PRN (Reason: pain) clozapine 100 mg tablet 300 mg PO BEDTIME sucralfate 1 gram tablet 1 g PO QID sertraline 100 mg tablet 100 mg PO DAILY famotidine 20 mg tablet 20 mg PO BID tamsulosin 0.4 mg capsule 0.4 mg PO BEDTIME trazodone 100 mg tablet 100 mg PO BEDTIME docusate sodium 100 mg capsule 100 mg PO BID dextroamphetamine-amphetamine 10 mg capsule,extended release 24hr 2 cap PO DAILY metoprolol succinate 25 mg tablet extended release 24 hr 75 mg PO DAILY lorazepam 1 mg tablet 1 mg PO BEDTIME PRN (Reason: insomnia) duloxetine 60 mg capsule,delayed release(DR/EC) 60 mg PO DAILY calcium carbonate-vitamin D3 [Oyster Shell Calcium-Vit D3] 500 mg-5 mcg (200 unit) tablet 2 tab PO BID clozapine 50 mg tablet 50 mg PO BEDTIME guanfacine 1 mg tablet extended release 24 hr 1 mg PO DAILY Discharge Orders: Discharge Order (Routine); Ordered 07/15/25 Ordered By: Maye Byers Diet: Regular diet Activity on Discharge: Use cane or walker Stand Alone Forms: Patient Portal Discharge page, Community Support Print Language: Egyptian Care Plan Goals: Maintain safe behaviors Practice coping skills Take medications as prescribed Maintain regular follow-ups with your outpatient providers Health Concerns: Leg weakness, using walker 2 unwitnessed falls related to leg weakness while utilizing walker. Reported hitting head on both occasions. -CT head and c-spine without contrast done both times and negative for any acute changes. -R knee pain following fall- R knee x-ray- neg -Orthostatics neg Peripheral neuropathy Chronic pain CAD/HTN/HLD Plan of Treatment: Follow up with your psychiatric provider, PCP and other outpatient providers Take your medication as prescribed Assessment: Risk assessment at the time of discharge: Patient was interviewed on the day of discharge and found to be fully oriented, without any SI or violent ideation. Pt has improved insight and judgment and plans to continue treatment Pt is currently at low risk of harm to self and others and has a safety plan that includes presenting to the closest ER or calling 911 if feeling unsafe. Pt has been observed closely by unit staff and has not engaged in any behaviors that suggest dangerous to self or others and has demonstrated appropriate behaviors and impulse control. Discharge Date/Time: 07/15/25 10:15
== END 2025-07-15 10:15 | disposition home or self-care (01) | DRG 885 ==
PROVIDERS: Internal Medicine; Nurse Practitioner Family; Nurse Practitioner Psychiatric/Mental Health; Psychiatry & Neurology Psychiatry; Admitting Provider Psychiatry & Neurology Psychiatry; Visit Provider Psychiatry & Neurology Psychiatry
PROC: GZB4ZZZ Other Electroconvulsive Therapy (ICD-10-PCS; CPT 90870; principal; 2025-06-15 13:30)
DX: F25.0 Schizoaffective disorder, bipolar type (principal); F43.10 Post-traumatic stress disorder, unspecified; I25.10 Atherosclerotic heart disease of native coronary artery without angina pectoris; W19.XXXA Unspecified fall, initial encounter; Y92.230 Patient room in hospital as the place of occurrence of the external cause; E11.42 Type 2 diabetes mellitus with diabetic polyneuropathy; M25.561 Pain in right knee; G47.30 Sleep apnea, unspecified; M25.551 Pain in right hip; N40.0 Benign prostatic hyperplasia without lower urinary tract symptoms; E78.5 Hyperlipidemia, unspecified; G89.29 Other chronic pain; Z23 Encounter for immunization; Z79.82 Long term (current) use of aspirin; Z79.84 Long term (current) use of oral hypoglycemic drugs; Z79.899 Other long term (current) drug therapy
CPT/HCPCS: 36415; 70450; 71046; 72125; 73502; 73560; 80048; 80053; 80061; 81003; 82565; 83036; 83735; 84439; 84443; 84484; 85025; 85048; 90656; 90870; 93005; 93971; J0330; J1596; J1805; J1920; J2250; J2405; J2704; J7120

== ENCOUNTER 2025-06-09 18:19 | Outpatient (BNV) | payer OTHER, SELFPAY | END 2025-06-27 09:02 | PROVIDERS: Admitting Provider Psychiatry & Neurology Psychiatry; Visit Provider Internal Medicine Cardiovascular Disease | DX: R07.9 Chest pain, unspecified (principal); R06.02 Shortness of breath; R42 Dizziness and giddiness; Z13.6 Encounter for screening for cardiovascular disorders | CPT/HCPCS: 93010 ==

== ENCOUNTER → 2025-06-09 18:19 | Outpatient (BNV) | payer OTHER, SELFPAY | PROVIDERS: Admitting Provider Psychiatry & Neurology Psychiatry; Visit Provider Nurse Practitioner Family | DX: I25.10 Atherosclerotic heart disease of native coronary artery without angina pectoris (principal) | CPT/HCPCS: 99221; 99222; 99499 ==

== ENCOUNTER → 2025-06-09 18:19 | Outpatient (BNV) | payer OTHER, SELFPAY | PROVIDERS: Admitting Provider Psychiatry & Neurology Psychiatry; Visit Provider Psychiatry & Neurology Psychiatry | DX: F33.2 Major depressive disorder, recurrent severe without psychotic features (principal) | CPT/HCPCS: 90870 ==

== ENCOUNTER → 2025-06-09 18:19 | Outpatient (BNV) | payer OTHER, SELFPAY | PROVIDERS: Admitting Provider Psychiatry & Neurology Psychiatry; Visit Provider Psychiatry & Neurology Psychiatry | DX: F25.0 Schizoaffective disorder, bipolar type (principal); F43.10 Post-traumatic stress disorder, unspecified | CPT/HCPCS: 90792; 90870; 99231; 99232 ==